=== PATIENT | female | born 1955 | race Caucasian/White ===

== ENCOUNTER → 2020-07-05 13:01 | Outpatient (BNVA) | payer MEDICARE, MEDICAID, SELFPAY | PROVIDERS: PCP Physician Assistant; Referring Provider Physician Assistant; Visit Provider Family Medicine Adult Medicine | DX: M96.1 Postlaminectomy syndrome, not elsewhere classified (principal); M47.812 Spondylosis without myelopathy or radiculopathy, cervical region; Z79.891 Long term (current) use of opiate analgesic | CPT/HCPCS: 99214 ==

== ENCOUNTER → 2020-08-23 12:51 | Outpatient (BNVA) | payer MEDICARE, MEDICAID, SELFPAY | PROVIDERS: PCP Physician Assistant; Referring Provider Physician Assistant; Visit Provider Family Medicine Adult Medicine | DX: M96.1 Postlaminectomy syndrome, not elsewhere classified (principal); M47.812 Spondylosis without myelopathy or radiculopathy, cervical region | CPT/HCPCS: 99212 ==

== ENCOUNTER 2020-09-28 10:21 | Day surgery (SDC) | payer MEDICARE, MEDICAID, SELFPAY ==
[2020-09-27 10:35] VITALS: BMI 22.0
--- NOTE | 2020-09-27 13:25 | P.CONAN_ITS ---
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 Case reviewed with Dr Helene EASON Past Medical History Medical History AAA (abdominal aortic aneurysm) CAD (coronary artery disease) Cervical spondylosis CKD (chronic kidney disease) stage 3, GFR 30-59 ml/min Failed back syndrome, lumbar Hiatal hernia History of placement of internal cardiac defibrillator Hx of myocardial infarction Hypertension On beta rosalva at home Peripheral vascular disease Family History Family History Father Hypertension Mother No problems noted. Sister Gynecologic cancer Surgical History Surgical History Cardiac defibrillator in place History of esophagogastroduodenoscopy (EGD) History of heart bypass surgery History of lumbar fusion History of open reduction and internal fixation (ORIF) procedure History of surgery S/P CABG (coronary artery bypass graft) Social History Social History Alcohol intake: never Smoking Status: Former smoker Second Hand Smoke Exposure: No Use of substances other than those prescribed or required for medical reasons: No Advance Directives: No Advance Directives Information Provided: No Advance Directives on File: No Meds Allergies Allergy/AdvReac Type Severity Reaction Status Date / Time No Known Allergies Allergy Verified 08/30/20 11:02 [No Known Allergies*] Home Medications Medication Instructions Recorded Confirmed Type atorvastatin 80 mg tablet 80 mg PO DAILY 07/05/20 09/24/20 History clopidogrel 75 mg tablet 75 mg PO DAILY 07/05/20 09/24/20 History flu vacc 2019-(64yr ml IM 07/05/20 08/23/20 History up)-MF59C(PF) 60 mcg(15 mcgx4)/0.5 mL IM syringe fluticasone propionate 50 1 spray INTRANASAL DAILY 07/05/20 09/24/20 History mcg/actuation nasal spray,suspension gabapentin 800 mg tablet 800 mg PO TID 07/05/20 09/24/20 History ketotifen fumarate 0.025 % (0.035 1 p OPHTHALMIC (EYE) BID 07/05/20 09/24/20 History %) eye drops naloxone 4 mg/actuation nasal spray 0 spray INTRANASAL DIRECTED 07/05/20 09/24/20 History pneumoc 13-libby conj-dip cr(PF) 0.5 ml IM 07/05/20 08/23/20 History mL IM syringe sacubitril 24 mg-valsartan 26 mg 1 tab PO BID 07/05/20 09/24/20 History tablet triamcinolone acetonide 0.5 % applic TOPICAL BID 07/05/20 08/23/20 History topical cream buprenorphine 1 patch TOPICAL QWEEK 09/24/20 09/24/20 History buprenorphine HCl [Belbuca] 1 strip BUCCAL Q12H 09/24/20 09/24/20 History sacubitril-valsartan [Entresto] 1 tab PO BID 09/24/20 09/24/20 History tramadol 1 tab PO Q12H 09/24/20 09/24/20 History Exam Exam Date and Time: September 27, 2020 1325 Height,Weight and Vital Signs: Height 4 ft 11 in Weight 49.442 kg Pertinent Lab Results Pertinent Lab Results: Laboratory Tests 06/18/20 06/18/20 09:12 09:12 WBC 6.8 Hgb 10.5 L Hct 32.0 L Plt Count 159 L Sodium 136 Potassium 5.3 H Chloride 106 BUN 22 H D Creatinine 1.24 Narrative Narrative: ICD Interr 01/2020: [facility] [employer] Implanted 01/2018 VVI 40; PARACHUTE TAPER<1% No new alerts or episodes noted Normal device function Est battery life 7.2years ECHO 01/2020: LV mild dilated; Akinesis of mid-apical anteroseptum; mid to apical anterior, entire apex. [id number]%; Sev reduced left vent sys function Nml RV size, reduced RV global systolic function Mild dil LA Mild to mod MR Mild TR PA sys pressure mildly elevated No significant change from 11/2019 Assessment and Plan Assessment Anesthesia Assessment: Chart Reviewed Documented by User: Monica Patterson 09/28/20 10:52 [facility] Past Medical History Medical History AAA (abdominal aortic aneurysm) CAD (coronary artery disease) Cervical spondylosis CKD (chronic kidney disease) stage 3, GFR 30-59 ml/min Failed back syndrome, lumbar Hiatal hernia History of placement of internal cardiac defibrillator Hx of myocardial infarction Hypertension On beta rosalva at home Peripheral vascular disease Family History Family History Father Hypertension Mother No problems noted. Sister Gynecologic cancer Surgical History Surgical History Cardiac defibrillator in place History of esophagogastroduodenoscopy (EGD) History of heart bypass surgery History of lumbar fusion History of open reduction and internal fixation (ORIF) procedure History of surgery S/P CABG (coronary artery bypass graft) Social History Social History Alcohol intake: never Smoking Status: Former smoker Second Hand Smoke Exposure: No Use of substances other than those prescribed or required for medical reasons: No Advance Directives: No Advance Directives Information Provided: No Advance Directives on File: No Meds Allergies Allergy/AdvReac Type Severity Reaction Status Date / Time No Known Allergies Allergy Verified 08/30/20 11:02 [No Known Allergies*] Home Medications Medication Instructions Recorded Confirmed Type atorvastatin 80 mg tablet 80 mg PO DAILY 07/05/20 09/24/20 History clopidogrel 75 mg tablet 75 mg PO DAILY 07/05/20 09/24/20 History flu vacc 2020-21(64yr ml IM 07/05/20 08/23/20 History up)-MF59C(PF) 60 mcg(15 mcgx4)/0.5 mL IM syringe fluticasone propionate 50 1 spray INTRANASAL DAILY 07/05/20 09/24/20 History mcg/actuation nasal spray,suspension gabapentin 800 mg tablet 800 mg PO TID 07/05/20 09/24/20 History ketotifen fumarate 0.025 % (0.035 1 drp OPHTHALMIC (EYE) BID 07/05/20 09/24/20 History %) eye drops naloxone 4 mg/actuation nasal spray 0 spray INTRANASAL DIRECTED 07/05/20 09/24/20 History pneumoc 13-libby conj-dip cr(PF) 0.5 ml IM 07/05/20 08/23/20 History mL IM syringe sacubitril 24 mg-valsartan 26 mg 1 tab PO BID 07/05/20 09/24/20 History tablet triamcinolone acetonide 0.5 % applic TOPICAL BID 07/05/20 08/23/20 History topical cream buprenorphine 1 patch TOPICAL QWEEK 09/24/20 09/24/20 History buprenorphine HCl [Belbuca] 1 strip BUCCAL Q12H 09/24/20 09/24/20 History sacubitril-valsartan [Entresto] 1 tab PO BID 09/24/20 09/24/20 History tramadol 1 tab PO Q12H 09/24/20 09/24/20 History
[2020-09-28 10:50] VITALS: BP 123/33; PULSE 50; RESP 18; TEMP 36.6; O2SAT 100
[2020-09-28] MEDS: Lactated Ringers 1,000 ML 20 ML IVCONT (11:05)
== END 2020-09-28 23:59 ==
LOC: HO.SSS 10:22
PROVIDERS: PCP Physician Assistant; Visit Provider Anesthesiology
DX: M47.812 Spondylosis without myelopathy or radiculopathy, cervical region (principal); Z53.9 Procedure and treatment not carried out, unspecified reason; I10 Essential (primary) hypertension; Z87.891 Personal history of nicotine dependence
CPT/HCPCS: J3300; Q9967

== ENCOUNTER → 2020-10-25 13:37 | Outpatient (BNVA) | payer MEDICARE, MEDICAID, SELFPAY | PROVIDERS: PCP Physician Assistant; Referring Provider Physician Assistant; Visit Provider Family Medicine Adult Medicine | DX: M96.1 Postlaminectomy syndrome, not elsewhere classified (principal); M47.812 Spondylosis without myelopathy or radiculopathy, cervical region; Z79.891 Long term (current) use of opiate analgesic | CPT/HCPCS: 99212 ==

== ENCOUNTER → 2020-11-29 14:09 | Outpatient (BNVA) | payer MEDICARE, MEDICAID, SELFPAY | PROVIDERS: PCP Physician Assistant; Visit Provider Family Medicine Adult Medicine | DX: M47.812 Spondylosis without myelopathy or radiculopathy, cervical region (principal); M96.1 Postlaminectomy syndrome, not elsewhere classified; Z79.899 Other long term (current) drug therapy | CPT/HCPCS: 99212 ==

== ENCOUNTER → 2021-01-10 13:57 | Outpatient (BNVA) | payer MEDICARE, MEDICAID, SELFPAY | PROVIDERS: PCP Physician Assistant; Visit Provider Family Medicine Adult Medicine | DX: M47.812 Spondylosis without myelopathy or radiculopathy, cervical region (principal); M96.1 Postlaminectomy syndrome, not elsewhere classified | CPT/HCPCS: 99212 ==

== ENCOUNTER 2021-02-07 15:29 | Outpatient (REF) | payer MEDICARE, MEDICAID, SELFPAY ==
--- NOTE | ~2021-02-07 | US_ITS ---
EXAMINATION: US ABDOMINAL AORTIC ANEURYSM CLINICAL INFORMATION: Abdominal aortic aneurysm. COMPARISON: Abdominal ultrasound 06/18/2020. TECHNIQUE: Routine abdominal ultrasound was performed. FINDINGS: There is atherosclerotic changes of the entire abdominal aorta. Peak systolic velocity abdominal aorta measures 102 cm/s. Proximal abdominal aorta measures 2.6 x 2.6 cm. Previously measured 2.5 x 2.4 cm. Mid abdominal aorta measures 2.4 x 2.8 cm. Previously it measured 2.1 x 1.7 cm. Distal abdominal aorta measures 3.7 x 2.3 cm. There is thrombus visualized along the left aspect of previously patent aneurysm. Previously it measured 3.9 x 2.3 cm. At the bifurcation. Right common iliac artery measures 0.8 x 0.6 cm. Previously it measured 0.80 x 1.0 cm. Left common iliac artery measures 1.0 x 1.0 cm. Previously it measured 0.80 x 1.0 cm. Incidental finding of a right iliac stent is noted. US/US abdominal aortic aneurysm IMPRESSION: Saccular infrarenal distal abdominal aortic aneurysm measuring same size as previously noted on 06/18/2020 exam. There is now thrombus in the left aspect of the aneurysm.
== END 2021-02-07 15:30 | disposition home or self-care (01) ==
LOC: HO.US 15:29
PROVIDERS: Visit Provider Physician Assistant
DX: I71.4 Abdominal aortic aneurysm, without rupture (principal)
CPT/HCPCS: 76706

== ENCOUNTER → 2021-02-19 15:19 | Outpatient (BNVA) | payer MEDICARE, MEDICAID, SELFPAY | PROVIDERS: PCP Physician Assistant; Visit Provider Family Medicine Adult Medicine | DX: M47.812 Spondylosis without myelopathy or radiculopathy, cervical region (principal); M96.1 Postlaminectomy syndrome, not elsewhere classified; Z79.899 Other long term (current) drug therapy | CPT/HCPCS: 99212 ==

== ENCOUNTER → 2021-02-28 13:51 | Outpatient (BNVA) | payer MEDICARE, MEDICAID, SELFPAY | PROVIDERS: PCP Physician Assistant; Visit Provider Surgery Vascular Surgery | DX: I73.9 Peripheral vascular disease, unspecified (principal); I65.23 Occlusion and stenosis of bilateral carotid arteries; I71.4 Abdominal aortic aneurysm, without rupture | CPT/HCPCS: 99202 ==

== ENCOUNTER 2021-03-05 13:53 | Outpatient (REF) | payer MEDICARE, MEDICAID, SELFPAY ==
--- NOTE | ~2021-03-05 | MM_ITS ---
EXAMINATION: BONE DENSITOMETRY CLINICAL INDICATION: Encounter for screening for osteoporosis. Prior lower lumbar fusion. COMPARISON: Baseline BD dated 12/03/2018. TECHNIQUE: Using a Semadic DXA System (software version: 13.1) manufactured by [employer], dual-energy x-ray absorptiometry was performed of the lumbar spine and left hip. The images are of good technical quality. Summary results are attached. FINDINGS: AP SPINE L1-L3 (excluding L4): The data of L1-L4 has been changed to exclude the L4 vertebral body, because hardware at this level would cause overestimation of lumbar spine density. Current: BMD 0.975 g/cm2, Z-score 0.5, T-score -1.6, osteopenia, 3.0% increase from baseline (<5% change is not significant). Baseline: BMD 0.947 g/cm2. LEFT FEMUR, NECK: Current: BMD 0.711 g/cm2, Z-score -0.5, T-score -2.4, osteopenia. Baseline: BMD 0.652 g/cm2. LEFT FEMUR, TOTAL: Current: BMD 0.669 g/cm2, Z-score -1.0, T-score -2.7, osteoporosis, 7.4% increase from baseline (<5% change is not significant). Baseline: BMD 0.623 g/cm2. IDENTIFIED RISK FACTORS: Osteoporosis, renal, history of fracture (adult). Early menopause, secondary osteoporosis, anticonvulsant. HISTORY OF FRACTURE: Humerus. MEDICATIONS: None listed. MM/XR DEXA axial skeleton IMPRESSION: 1. DIAGNOSIS: Osteoporosis based on the lowest T-score value of -2.7 in the total femur applying World Health Organization criteria. 2. 10-YEAR FRACTURE RISK PREDICTION, FRAX: Major osteoporotic fracture (clinical spine, forearm, hip or shoulder) 19.2%. Hip fracture 4.1%. 3. Treatment Recommendations: NOF guidelines recommend consideration for treatment in postmenopausal women and men age 50 and older presenting with the following: -A hip or vertebral (clinical or morphometric) fracture. -T-score less than or equal to -2.5 at the femoral neck or spine after appropriate evaluation to exclude secondary causes. -Low bone mass at the hip or spine and a 10-year fracture probability by FRAX of greater than or equal to 3% for hip fracture or greater than or equal to 20% for major osteoporotic fracture based on the [place] adapted WHO algorithm. 4. Other Recommendations: All treatment decisions require clinical judgment and consideration of individual patient factors, including patient preferences, comorbidities, previous drug use, risk factors not captured in the FRAX model (e.g. frailty, falls, vitamin D deficiency, increased bone turnover, interval significant decline in bone density) and possible under or overestimation of fracture risk by FRAX. Additional medical evaluation for secondary cause of low bone mineral density may be appropriate. FUTURE SCAN RECOMMENDATION: People with diagnosed cases of osteoporosis or at high risk for fracture should have regular bone mineral density tests. For patients eligible for Medicare, routine testing is allowed once every 2 years. The testing frequency can be increased to one year for patients who have rapidly progressing disease, those who are receiving or discontinuing medical therapy to restore bone mass, or have additional risk factors.
--- NOTE | ~2021-03-05 | MM_ITS ---
EXAMINATION: MM SCREENING DIGITAL BREAST TOMOSYNTHESIS, BILATERAL CLINICAL INFORMATION: Screening. Asymptomatic. The lifetime risk of breast cancer based on the Tyrer-Cuzick Model is 3%. COMPARISON: Mammography: 06/28/2019, 05/07/2018, 01/30/2017 TECHNIQUE: Digital breast tomosynthesis is performed in both the craniocaudal and mediolateral oblique views along with computer-aided detection (CAD). Synthesized 2D images are generated from the tomosynthesis. FINDINGS: There are scattered areas of fibroglandular density (ACR BI-RADS breast composition Category b). There are no significant masses, abnormal calcifications, or other abnormalities. There is pacemaker generator overlying and obscuring much of the left axilla on the MLO view. Axillary nodes and skin contours are stable. No significant changes. MM/MM tomosynthesis screening BI IMPRESSION: No mammographic evidence of malignancy. ASSESSMENT: BI-RADS 2: Benign RECOMMENDATION: Routine annual mammography screening. This patient's information was entered into a reminder system with a target due date for their next mammogram.
== END 2021-03-05 13:54 | disposition home or self-care (01) ==
LOC: HO.MAMMO 13:53
PROVIDERS: Visit Provider Physician Assistant
DX: Z12.31 Encounter for screening mammogram for malignant neoplasm of breast (principal); Z13.820 Encounter for screening for osteoporosis; M85.80 Other specified disorders of bone density and structure, unspecified site; M81.0 Age-related osteoporosis without current pathological fracture; Z78.0 Asymptomatic menopausal state; Z87.81 Personal history of (healed) traumatic fracture
CPT/HCPCS: 77063; 77067; 77080

== ENCOUNTER → 2021-03-19 14:55 | Outpatient (BNVA) | payer MEDICARE, MEDICAID, SELFPAY | PROVIDERS: Visit Provider Family Medicine Adult Medicine | DX: M47.812 Spondylosis without myelopathy or radiculopathy, cervical region (principal); M96.1 Postlaminectomy syndrome, not elsewhere classified | CPT/HCPCS: 99212 ==

== ENCOUNTER 2021-04-02 12:48 | Outpatient (REF) | payer MEDICARE, MEDICAID, SELFPAY ==
--- NOTE | ~2021-04-02 | US_ITS ---
EXAMINATION: COLOR-FLOW DUPLEX IMAGING OF THE BILATERAL LOWER EXTREMITY ARTERIAL SYSTEM. VELOCITY MEASUREMENTS THROUGHOUT THE FEMORAL ARTERIES WITH ANKLE-BRACHIAL PERIPHERAL ARTERIAL TESTING. Interventional Radiologist: Erlin Su M.D., F.S.I.R., F.A.C.R. CLINICAL INFORMATION: This is a 65-year-old female with hypertension, hyperlipidemia, peripheral vascular disease. Comparison: Comparison is made to limited portions of the study dated 08/25/2011 which demonstrated right iliac artery occlusion and severe bilateral superficial femoral artery disease. RIGHT FEMORAL RUNOFF VELOCITIES: The right common femoral artery measures 158 cm/s and monophasic. The right profunda femoral artery is 403 cm/s and is biphasic. This is suspicious for high-grade stenosis. Right proximal superficial femoral artery measures 43 cm/s and monophasic. Mid superficial femoral artery is occluded. Distal right superficial femoral artery measures 27 cm/s and is biphasic. Right popliteal velocity measures 47 cm/s and is monophasic. The posterior tibial artery velocity measures 35 cm/s and was monophasic. The right ankle-brachial index is 0.43. The waveforms are dampened. There is diffuse calcified atherosclerotic disease. LEFT FEMORAL RUNOFF VELOCITIES: The left common femoral artery measures 233 cm/s and monophasic. This is suspicious for hemodynamically significant stenosis. The left profunda femoral artery is 161 cm/s and is monophasic. Left proximal superficial femoral artery measures 161 cm/s and monophasic. Mid superficial femoral artery is 67 cm/s and monophasic. Distal left superficial femoral artery measures 42 cm/s and is monophasic. Left popliteal velocity measures 38 cm/s and is monophasic. The posterior tibial artery velocity measures 31 cm/s and was monophasic. The left ankle-brachial index is 0.48. The waveforms are dampened. There is diffuse calcified atherosclerotic disease. US/US arterial duplex LE BI IMPRESSION: 1. RIGHT LEG: There is a hemodynamically significant stenosis of the right profunda femoral artery. There is occlusion of the mid right superficial femoral artery. Diffuse atherosclerotic plaque is present. There is moderate hemodynamically significant obstruction based on the ankle-brachial index. 2. LEFT LEG: There is a hemodynamically significant stenosis in the left common femoral artery. There is diffuse atherosclerotic disease throughout the left outflow. There is moderate hemodynamically significant obstruction based on the ankle-brachial index.
--- NOTE | ~2021-04-02 | US_ITS ---
EXAMINATION: US EXTRACRANIAL CAROTID DUPLEX, BILATERAL CLINICAL INFORMATION: This is a 65-year-old female with history of tobacco use, hypertension, hyperlipidemia, myocardial infarction, carotid artery disease. COMPARISON: None TECHNIQUE: Real-time ultrasound and Doppler techniques (integrating B-mode 2-D vascular images, Doppler spectral analysis and color-flow Doppler imaging) were utilized to interrogate the extracranial carotid arteries, the vertebral arteries and proximal subclavian arteries bilaterally. The degree of stenosis is determined by criteria similar to NASCET. FINDINGS: Right Side: 1. There is moderate atherosclerotic plaque seen in the bifurcation/proximal ICA region. 2. The common carotid artery PSV proximally is 90 cm/s and distally 108 cm/s. 3. The proximal internal carotid artery velocities are 162 cm/s systolic and 44 cm/s diastolic. 4. The proximal external carotid artery PSV is 94 cm/s. 5. The vertebral artery shows antegrade flow. 6. The subclavian artery waveforms are normal. Left Side: 1. There is moderate atherosclerotic plaque seen in the bifurcation/proximal ICA region. 2. The common carotid artery PSV proximally is 85 cm/s and distally 99 cm/s. 3. The proximal internal carotid artery velocities are 250 cm/s systolic and 40 cm/s diastolic. 4. The proximal external carotid artery PSV is 145 cm/s. 5. The vertebral artery shows antegrade flow. 6. The subclavian artery waveforms are normal. US/US carotid duplex BI IMPRESSION: 1. RIGHT: Moderate, hemodynamically significant stenosis of the proximal right internal carotid artery corresponding to a 50-79% stenosis by velocity criteria. 2. LEFT: Moderate, hemodynamically significant stenosis of the proximal left internal carotid artery corresponding to a 50-79% stenosis by velocity criteria.
== END 2021-04-02 12:49 | disposition home or self-care (01) ==
LOC: HO.US 12:48
PROVIDERS: Visit Provider Surgery Vascular Surgery
DX: I65.23 Occlusion and stenosis of bilateral carotid arteries (principal); I70.203 Unspecified atherosclerosis of native arteries of extremities, bilateral legs; I77.1 Stricture of artery
CPT/HCPCS: 93880; 93925

== ENCOUNTER → 2021-04-04 12:54 | Outpatient (BNVA) | payer MEDICARE, MEDICAID, SELFPAY | PROVIDERS: Visit Provider Surgery Vascular Surgery | DX: I73.9 Peripheral vascular disease, unspecified (principal); I65.23 Occlusion and stenosis of bilateral carotid arteries; I71.4 Abdominal aortic aneurysm, without rupture | CPT/HCPCS: 99212 ==

== ENCOUNTER → 2021-04-10 06:00 | Day surgery (SDC) | payer MEDICARE, MEDICAID, SELFPAY ==
[2021-04-10] VITALS (11 sets, daily range): BP systolic 110–134; BP diastolic 39–51; PULSE 43–52; RESP 16–18; TEMP 36.4–36.8; O2SAT 97–100; BMI 20.7
[2021-04-10] MEDS: 0.9 % Sodium Chloride 1,000 ML 100 ML IVCONT (06:20)
[2021-04-10 06:32] LABS: MANUAL DIFF FLAG NO
[2021-04-10 06:41] LABS: Basophils Absolute Auto 0.1 X10*3/uL (0.0-0.2); Basophils Percent Auto 0.9 % (0-2); Eosinophils Absolute Auto 0.4 X10*3/uL (0.0-0.4); Eosinophils Percent Auto 6.3 % (0-4); Hematocrit 35.3 % (37-47); Hemoglobin 11.2 g/dl (12.0-16.0); Imm Gran Abs Auto 0.03 X10*3/uL (0.00-0.03); Imm Gran Pct Auto 0.4 % (0.0-0.4); Lymphocytes Absolute Auto 2.4 X10*3/uL (1.2-4.9); Lymphocytes Percent Auto 35.5 % (20-40); Mean Corpuscular HGB Conc 31.7 g/dl (31.0-35.0); Mean Corpuscular Hemoglobin 31.5 pg (27.0-33.0); Mean Corpuscular Volume 99.4 fL (80-98); Mean Platelet Volume 10.2 fL (9.4-12.3); Monocytes Absolute Auto 0.5 X10*3/uL (0.1-1.2); Monocytes Percent Auto 7.1 % (2-11); Neutrophils Absolute Auto 3.4 X10*3/uL (2.0-8.3); Neutrophils Percent Auto 49.8 % (45-73); Platelet Count 162 X10*3/uL (160-400); Red Blood Count 3.55 X10*6/uL (4.20-5.50); Red Cell Distribution Width 13.2 % (11.0-16.0); White Blood Count 6.9 X10*3/uL (4.8-10.8)
[2021-04-10 06:44] LABS: INTERNATIONAL NORM RATIO 1.1 (0.9-1.1); Prothrombin Time 12.4 SEC (9.9-13.0)
[2021-04-10 06:46] LABS: Partial Thromboplastin Time 33.3 SEC (24.1-38.0)
[2021-04-10 07:08] LABS: Anion Gap 12 (12-20); Blood Urea Nitrogen 10 mg/dL (9-16); Calcium 9.4 mg/dL (8.4-10.2); Carbon Dioxide 25 mmol/L (22-29); Chloride 105 mmol/L (96-108); Creatinine Clr Calc Pharmacy 38.5; Estimated Glomerular Filt Rate 57; Glucose Random 90 mg/dL (60-115); Potassium 3.9 mmol/L (3.3-5.1); Sodium 138 mmol/L (135-145)
--- NOTE | 2021-04-10 12:10 | W.PM.OPN ---
Operative Note Operative Note Date of Service: 04/10/21 Narrative: Angiogram report from [facility] Preoperative diagnosis: Atherosclerosis of bilateral lower extremity with activity limiting claudication Postoperative diagnosis: Same Procedure: 1. Ultrasound-guided left and right common femoral access 2. Aortogram with left lower extremity runoff lower extremity runoff 3. StarClose closure device placement Surgeon:Levi Mann M.D. Slime Plant Operator Helper:None Anesthesia: Local with moderate conscious sedation for a total of 45 minutes, performed by vt Specimens:none Drains:none Estimated blood loss: Less than 10 ml Indications: 65-year-old female with severe activity limiting claudication. She is only able to walk about 100 ft. Noninvasive testing demonstrated severe bilateral disease. She now presents for endovascular intervention The patient has signed the informed consent after reviewing risks, complications, benefits, and alternatives previously discussed with the patient in my office. The patient was given the opportunity to ask any additional questions or voice any concerns. All questions were answered to the patient's satisfaction. Procedure in detail: Patient was brought to the angiography suite prior to which a time-out was called for patient identification and site verification. Bilateral groins were prepped and draped in the standard surgical fashion. Under ultrasound guidance left common femoral was punctured with micro puncture needle and wire. Due to the near total occlusion of the left side we were unable to advance sheath. We abandon the left side and we turned our attention to the right side. Under similar fashion right side with common femoral was accessed using ultrasound guidance. We were then able to advance the micro wire. Subsequently a precision 4 Danish sheath was then placed. Bentson wire was advanced to the level of the aorta. 4 Danish Flush catheter was brought up and parked at the level of the renal arteries. Aortogram was then undertaken. Catheter was brought down to the level of the iliac bifurcation. Iliacs were subsequently imaged. Catheter was then brought in up and over to the left side profunda femora.. Runoff study was then undertaken. We were unable to intervene. Multiple orthogonal views were undertaken. Catheter wire sheath was removed. 10 minutes direct pressure was held. Patient tolerated the procedure well. Interpretation of films: 1. Ultrasound demonstrates appropriate femoral puncture. Image of which was saved. 2. Aortogram demonstrates appropriate caliber aorta. Minimal disease. Appropriate take-off of the renals. 3. Iliac images demonstrate significant tortuosity with multiple high-grade stenosis especially a calcified ring at the takeoff of the iliacs. 4. Right side iliacs demonstrated 2 prior old stents. There was some stenotic disease between the stents. Right common femoral had significant disease. SFA was occluded 5. Left side had disease through the common iliac going down to the external iliac there is a near total occlusion of the external iliac and common femoral. Profunda femorals fills via collaterals. SFA total occlusion. SFA reconsidered to set the above knee popliteal. Good 3 vessel runoff. Conclusion: 1. Severe multivessel disease. Patient will require open approach in order to better treat this. This was discussed with the patient at the conclusion of the case. This note is constructed using voice recognition software. While every effort has been made to ensure accuracy, automobile damage field appraiser errors may have been included. Thank you for allowing me to participate in the care of your patient. Yours sincerely, Levi Mann MD, FACS, R.P.V.I.
[2021-04-10] MEDS: iohexoL 300 MG/ML 100 ML INFUS..BTL IV (12:33)
== END | disposition home or self-care (01) ==
PROVIDERS: PCP Physician Assistant; Visit Provider Surgery Vascular Surgery
DX: I70.213 Atherosclerosis of native arteries of extremities with intermittent claudication, bilateral legs (principal); I65.23 Occlusion and stenosis of bilateral carotid arteries; I71.4 Abdominal aortic aneurysm, without rupture; I25.10 Atherosclerotic heart disease of native coronary artery without angina pectoris; I12.9 Hypertensive chronic kidney disease with stage 1 through stage 4 chronic kidney disease, or unspecified chronic kidney disease; N18.30 Chronic kidney disease, stage 3 unspecified; Z95.1 Presence of aortocoronary bypass graft; Z87.891 Personal history of nicotine dependence; Z95.810 Presence of automatic (implantable) cardiac defibrillator
CPT/HCPCS: 36247; 36415; 75630; 76937; 80048; 85025; 85610; 85730; 99152; 99153; C1769; C1887; J2250; J3010; Q9967

== ENCOUNTER → 2021-04-16 15:22 | Outpatient (BNVA) | payer MEDICARE, MEDICAID, SELFPAY | PROVIDERS: PCP Physician Assistant; Visit Provider Family Medicine Adult Medicine | DX: M96.1 Postlaminectomy syndrome, not elsewhere classified (principal); M47.812 Spondylosis without myelopathy or radiculopathy, cervical region; Z79.899 Other long term (current) drug therapy | CPT/HCPCS: 99212 ==

== ENCOUNTER → 2021-04-18 14:52 | Outpatient (BNVA) | payer MEDICARE, MEDICAID, SELFPAY | PROVIDERS: PCP Physician Assistant; Visit Provider Surgery Vascular Surgery | DX: I73.9 Peripheral vascular disease, unspecified (principal) | CPT/HCPCS: 99212 ==

== ENCOUNTER → 2021-05-14 15:26 | Outpatient (BNVA) | payer MEDICARE, MEDICAID, SELFPAY | PROVIDERS: PCP Physician Assistant; Visit Provider Family Medicine Adult Medicine | DX: M47.812 Spondylosis without myelopathy or radiculopathy, cervical region (principal); M96.1 Postlaminectomy syndrome, not elsewhere classified | CPT/HCPCS: 99212 ==

== ENCOUNTER → 2021-06-06 09:58 | Outpatient (BNVA) | payer MEDICARE, MEDICAID, SELFPAY | PROVIDERS: PCP Physician Assistant; Visit Provider Surgery Vascular Surgery | DX: Z01.810 Encounter for preprocedural cardiovascular examination (principal); I73.9 Peripheral vascular disease, unspecified; I71.4 Abdominal aortic aneurysm, without rupture; I25.10 Atherosclerotic heart disease of native coronary artery without angina pectoris; I12.9 Hypertensive chronic kidney disease with stage 1 through stage 4 chronic kidney disease, or unspecified chronic kidney disease; N18.30 Chronic kidney disease, stage 3 unspecified; M96.1 Postlaminectomy syndrome, not elsewhere classified; Z95.1 Presence of aortocoronary bypass graft; Z98.61 Coronary angioplasty status; Z95.810 Presence of automatic (implantable) cardiac defibrillator | CPT/HCPCS: Q3014 ==

== ENCOUNTER → 2021-06-11 15:58 | Outpatient (BNVA) | payer MEDICARE, MEDICAID, SELFPAY | PROVIDERS: PCP Physician Assistant; Visit Provider Family Medicine Adult Medicine | DX: Z51.81 Encounter for therapeutic drug level monitoring (principal); M47.812 Spondylosis without myelopathy or radiculopathy, cervical region; M96.1 Postlaminectomy syndrome, not elsewhere classified | CPT/HCPCS: 99212 ==

== ENCOUNTER 2021-06-17 06:15 | Inpatient (IN) | payer MEDICARE, MEDICAID, SELFPAY ==
[2021-06-12 10:21] VITALS: BMI 21.2
--- NOTE | 2021-06-13 12:49 | HO.ANESPROP2 ---
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 Not booked for PAT. Case reviewed with Dr Helene EASON Active Problems Active Problems: All Active Problems (Updated 06/12/21 @ 10:20 by Niki Dominique RN) Irritable bowel syndrome with diarrhea (Acute) Depression (Acute) AAA (abdominal aortic aneurysm) (Acute) Breast cancer screening (Acute) Osteoporosis (Acute) Abdominal aortic aneurysm (Acute) PAD (peripheral artery disease) (Acute) Carotid stenosis, bilateral (Acute) Osteoporosis (Acute) CAD (coronary artery disease) (Acute) Peripheral vascular disease (Acute) CKD (chronic kidney disease) stage 3, GFR 30-59 ml/min (Acute) History of heart bypass surgery (Acute) Cervical spondylosis (Acute) Failed back syndrome, lumbar (Acute) Past Medical History Medical History (Updated 06/12/21 @ 10:20 by Niki Dominique RN) AAA (abdominal aortic aneurysm) CAD (coronary artery disease) Cervical spondylosis CKD (chronic kidney disease) stage 3, GFR 30-59 ml/min COVID-19 vaccine series completed Failed back syndrome, lumbar Hiatal hernia History of femoral angiogram History of placement of internal cardiac defibrillator Hx of myocardial infarction Hypertension On beta rosalva at home Peripheral vascular disease Family History Family History Father Hypertension Mother No problems noted. Sister Gynecologic cancer Surgical History Surgical History Cardiac defibrillator in place History of esophagogastroduodenoscopy (EGD) History of heart bypass surgery History of lumbar fusion History of open reduction and internal fixation (ORIF) procedure History of surgery S/P CABG (coronary artery bypass graft) Social History Social History Household Members Other:: living with son Are you a primary day care assistant to a significant other at home: No Do you presently have visiting nurse or other home services: No Alcohol intake: never Patient Tobacco Use Status: Former Tobacco user Quit Date: 2018 Tobacco use type: Cigarette Years Smoked: 40 Second Hand Smoke Exposure: No Use of substances other than those prescribed or required for medical reasons: Yes Substance Use Type Other:: advised to hold pre-op Substance Use Frequency: Daily Have you been hit, kicked, punched, or otherwise hurt by someone within the past year? If so, by whom?: No Are you DNR?: No Advance Directives Information Provided: Yes (as above noted) Advance Directives on File: No Recently lost weight without trying: No Eating poorly because of decreased appetite: No Nutrition Risks: No Nutritional Risk Poor oral hygiene: No (upper & lower full denture) Meds Allergies Allergy/AdvReac Type Severity Reaction Status Date / Time No Known Allergies Allergy Verified 06/11/21 16:40 [No Known Allergies*] Home Medications Medication Instructions Recorded Confirmed Last Taken Type naloxone 4 mg/actuation nasal spray 1 spray INTRANASAL DIRECTED 07/05/20 06/12/21 Unknown History buprenorphine HCl 750 mcg buccal 750 mcg BUCCAL BID 06/12/21 06/12/21 Unknown History film ([place]) oxycodone 5 mg tablet 5 mg PO DAILY 06/12/21 06/12/21 06/17/21 History Exam Exam Date and Time: June 13, 2021 1249 Height,Weight and Vital Signs: Height 4 ft 11 in Weight 47.627 kg Pertinent Lab Results Pertinent Lab Results: DOS Narrative Narrative: EKG 04/2021 NSR, LVH with repol abnormality (no change since 2017) ICD Interr 03/2021 VVI 40: DROP HAMMER SETTER UP<1% No new alerts or episodes noted Normal device function Estimated battery life : 6.7years ICM WNL Nuc Stress 04/2021 Large in size, mostly fixed perfusion defect of the mid anterior, anteroseptal and apex consistent with LAD territory infarct with mild mirta-infarct ischemia TID was normal Gated SPECT imaging was performed and revealed an LVEF 54% at rest and 38% with stress ECHO 01/2020 LV mild dilated; Akinesis of mid-apical anteroseptum; mid to apical anterior, entire apex. [id number]%; Sev reduced left vent sys function Nml RV size, reduced RV global systolic function Mild dil LA Mild to mod MR Mild TR PA sys pressure mildly elevated No significant change from 11/2019 US carotid duplex BI 03/2021 IMPRESSION: 1. RIGHT: Moderate, hemodynamically significant stenosis of the proximal right internal carotid artery corresponding to a 50-79% stenosis by velocity criteria. ? 2. LEFT: Moderate, hemodynamically significant stenosis of the proximal left internal carotid artery corresponding to a 50-79% stenosis by velocity criteria. US arterial duplex LE 03/2021 IMPRESSION: ? 1.? RIGHT LEG: There is a hemodynamically significant stenosis of the right profunda femoral artery. There is occlusion of the mid right superficial femoral artery. Diffuse atherosclerotic plaque is present. There is moderate hemodynamically significant obstruction based on the ankle-brachial index. ? ? 2. LEFT LEG: There is a hemodynamically significant stenosis in the left common femoral artery. There is diffuse atherosclerotic disease throughout the left outflow. There is moderate hemodynamically significant obstruction based on the ankle-brachial index. Assessment and Plan Assessment Anesthesia Assessment: Chart Reviewed Documented by User: Monica Patterson MD 06/17/21 08:02 [facility] Past Medical History Medical History (Updated 06/12/21 @ 10:20 by Niki Dominique RN) AAA (abdominal aortic aneurysm) CAD (coronary artery disease) Cervical spondylosis CKD (chronic kidney disease) stage 3, GFR 30-59 ml/min COVID-19 vaccine series completed Failed back syndrome, lumbar Hiatal hernia History of femoral angiogram History of placement of internal cardiac defibrillator Hx of myocardial infarction Hypertension On beta rosalva at home Peripheral vascular disease Family History Family History Father Hypertension Mother No problems noted. Sister Gynecologic cancer Surgical History Surgical History Cardiac defibrillator in place History of esophagogastroduodenoscopy (EGD) History of heart bypass surgery History of lumbar fusion History of open reduction and internal fixation (ORIF) procedure History of surgery S/P CABG (coronary artery bypass graft) History of Problems with Anesthesia: No Social History Social History Household Members Other:: living with son Are you a primary day care assistant to a significant other at home: No Do you presently have visiting nurse or other home services: No Alcohol intake: never Patient Tobacco Use Status: Former Tobacco user Quit Date: 2018 Tobacco use type: Cigarette Years Smoked: 40 Second Hand Smoke Exposure: No Use of substances other than those prescribed or required for medical reasons: Yes Substance Use Type Other:: advised to hold pre-op Substance Use Frequency: Daily Have you been hit, kicked, punched, or otherwise hurt by someone within the past year? If so, by whom?: No Are you DNR?: No Advance Directives Information Provided: Yes (as above noted) Advance Directives on File: No Recently lost weight without trying: No Eating poorly because of decreased appetite: No Nutrition Risks: No Nutritional Risk Poor oral hygiene: No (upper & lower full denture) Meds Allergies Allergy/AdvReac Type Severity Reaction Status Date / Time No Known Allergies Allergy Verified 06/11/21 16:40 [No Known Allergies*] Home Medications Medication Instructions Recorded Confirmed Last Taken Type naloxone 4 mg/actuation nasal spray 1 spray INTRANASAL DIRECTED 07/05/20 06/12/21 Unknown History buprenorphine HCl 750 mcg buccal 750 mcg BUCCAL BID 06/12/21 06/12/21 Unknown History film ([place]) oxycodone 5 mg tablet 5 mg PO DAILY 06/12/21 06/12/21 06/17/21 History Exam Airway Mallampati Class: I (Edentulous) TM Dist: >3cm Neck ROM: Full Denture: Upper and Lower Loose/Missing/Broken Teeth: Yes, Upper and Lower Heart: RRR Lungs: CTA Assessment and Plan Assessment Anesthesia Assessment: Anesthesia Plan Discussed and Chart Reviewed Final Anesthetic Review History of Problems with Anesthesia: No NPO: Yes ASA Class: III Final Preanesthetic Review: Meds/Allgs Chart Reviewed, Consent Obtained/Reviewed and Anes Risks/Benef Reviewed Patient Risk: Intermediate Procedure Risk: Intermediate Anesthetic Plan Anesthetic Plan: GA Disposition: Standard PACU
[2021-06-17] VITALS (25 sets, daily range): BP systolic 112–145; BP diastolic 37–57; PULSE 48–67; RESP 11–20; TEMP 36.1–36.9; O2SAT 91–100
--- NOTE | ~2021-06-17 | XR_ITS ---
EXAMINATION: XR HIP, LEFT CLINICAL INFORMATION: Left groin pain status post surgery COMPARISON: 11/06/2017 TECHNIQUE: Two views of the left hip. FINDINGS: No fracture or dislocation. The left hip is well aligned. Joint space maintained with subchondral sclerosis. The visualized left hemipelvis is intact. Skin elaina overlie the left inguinal region. Prominent vascular calcifications. XR/XR hip LT 1V IMPRESSION: No acute osseous abnormality with mild degenerative changes of the hip.
--- NOTE | ~2021-06-17 | FL_ITS ---
EXAMINATION: XR FLUOROSCOPY WITH IMAGES CLINICAL INFORMATION: Left iliac stent placement. COMPARISON: None. TECHNIQUE: Fluoroscopy performed by Dr. Mann. Fluoroscopy time: 11.7 minutes DAP: 23.9 mGycm2 Images: 20 FL/FL guidance in OR FINDINGS/IMPRESSION: Multiple intraoperative images were obtained. The final images shows a left iliac catheter. Several right common iliac and external iliac stents are seen in place as well. Please refer to the procedure report for more detailed findings.
--- NOTE | 2021-06-17 06:17 | MHC.SHP ---
Pre-Procedural Eval Section A Date of Service: 06/17/21 The patient is an INPATIENT: No The History & Physical has been completed within 30 days and I have reviewed it.: Yes Section B Chief Complaint: PVD Allergies: Allergies Allergy/AdvReac Type Severity Reaction Status Date / Time No Known Allergies Allergy Verified 06/11/21 16:40 [No Known Allergies*] Plan I have reviewed the history and physical and performed a pertinent physical examination on my patient. No changes have occurred unless specified.
[2021-06-17 06:29] LABS: MANUAL DIFF FLAG NO
[2021-06-17 06:30] LABS: Basophils Percent Auto 0.2 % (0-2); Eosinophils Percent Auto 0.2 % (0-4); Hematocrit 29.1 % (37-47); Hemoglobin 9.6 g/dl (12.0-16.0); Imm Gran Abs Auto 0.03 X10*3/uL (0.00-0.03); Imm Gran Pct Auto 0.3 % (0.0-0.4); Lymphocytes Absolute Auto 2.1 X10*3/uL (1.2-4.9); Lymphocytes Percent Auto 23.4 % (20-40); Mean Corpuscular Hemoglobin 31.3 pg (27.0-33.0); Mean Corpuscular Volume 94.8 fL (80-98); Mean Platelet Volume 10.3 fL (9.4-12.3); Monocytes Absolute Auto 0.7 X10*3/uL (0.1-1.2); Monocytes Percent Auto 7.6 % (2-11); Neutrophils Absolute Auto 6.2 X10*3/uL (2.0-8.3); Neutrophils Percent Auto 68.3 % (45-73); Platelet Count 171 X10*3/uL (160-400); Red Blood Count 3.07 X10*6/uL (4.20-5.50); Red Cell Distribution Width 13.4 % (11.0-16.0)
[2021-06-17 06:52] LABS: Prothrombin Time 11.3 SEC (9.9-13.0)
[2021-06-17 06:53] LABS: COVID-19 Test Negative (Negative)
[2021-06-17 06:55] LABS: Partial Thromboplastin Time 28.5 SEC (24.1-38.0)
[2021-06-17] MEDS: fentaNYL citrate/PF 100 MCG/2 ML VIAL 25 MCG IVPUSH ×2 (11:19→11:29)
--- NOTE | 2021-06-17 11:24 | W.PM.OPN ---
Operative Note Operative Note Date of Service: 06/17/21 Narrative: Operative note by [facility] Preoperative diagnosis: Atherosclerosis with rest pain left lower extremity Postoperative diagnosis: Same Procedure:1 left femoral endarterectomy 2. Remote endarterectomy of left external iliac 3. Endarterectomy of left profundus femoral 4. Diagnostic angiogram Surgeon:Levi Mann M.D. Sheriffs Officer: Pk [place] Anesthesia: General Specimens: 1 Drains: None Estimated blood loss: 150 mL Indications: 65-year-old female with a prior history smoking has severe peripheral vascular disease. She now presents for left femoral endarterectomy with possible iliac stenting. The patient has signed the informed consent after reviewing risks, complications, benefits, and alternatives previously discussed with the patient. The patient was given the opportunity to ask any additional questions or voice any concerns. All questions were answered to the patient's satisfaction. Procedure in detail: Patient was brought to the operating room prior to which a time-out was called for patient identification and site verification. Abdomen and bilateral groins were prepped and draped in the standard surgical fashion. Longitudinal incision was carried out over the left common femoral artery. We dissected down to the femoral sheath. This was dissected up to inguinal fascia. We were then able to identify the SFA and profundus femorals. These were isolated with silastic loops. At this time 4000 units of systemic heparin was administered. After 5 minutes of circulation time the common femoral profundus and SFA were clamped. We made an arteriotomy from the profundus into the common femoral extending up to the external iliac. Endarterectomy was then undertaken with [place] elevator. Loose debris was removed with fine pickups and mosquitos. The vessel was then irrigated out thoroughly. All loose debris was then removed. A xenosure patch was then used. This was trimmed to appropriate size and circumferentially anastomosed with a 6 0 Prolene. We brought it at down around both sides. We left an opening laterally. Once this was accomplished an additional 1000 units of heparin was administered. We then placed a 6 [place] sheath. This was brought into the external iliac. We then advanced a Bentson wire and subsequently a Glidewire in to the iliacs and then up into the aorta. We have followed this with a [place] catheter. And a 035 live Glidewire Advantage. Multiple orthogonal views were undertaken of the aorta and iliacs. It demonstrated dissection. At this point the endovascular portion of the procedure was terminated catheter wire sheath were then removed. We closed off the remaining arteriotomy and patch with a 6 0 Prolene. Flow was reestablished prior to closure. And flushed clear. We then reestablished flow. We did a Doppler evaluation and a there was excellent flow through the profundus femorals. At this point we covered with snow. And to seal sealant was used at the end. Deep layer was reapproximated using 2 0 Polysorb superficial layer with 3-0 poly Sorb and finally skin with elaina. Sterile dressing was applied. At the end of the case sponge instrument counts were correct. Patient tolerated the procedure well. Returned to recovery with stable vitals. Interpretation of films: 1. Left external iliac demonstrated significant calcific disease all the way up to the common iliac. Aorta demonstrated disease as well and did appear aneurysmal. The right side had prior stents which were easily visible. Completion angiogram demonstrated good flow through there was evidence of a dissection plane and it was decided that the endovascular portion of this procedure was terminated. Conclusion: 1. Successful femoral endarterectomy of left side 2. Unsuccessful iliac stenting. Will let the patient heal and may require reintervention. If that is not possible she may potentially need aortobifem bypass. This note is constructed using voice recognition software. While every effort has been made to ensure accuracy, heel washer stringing machine operator errors may have been included. Thank you for allowing me to participate in the care of your patient. Yours sincerely, Levi Mann MD, FACS, R.P.V.I.
[2021-06-17] MEDS: oxyCODONE HCl Immed Release 5 MG TABLET PO ×3 (11:42→19:59)
--- NOTE | 2021-06-17 12:57 | P.HPCC_ITS ---
History of Present Illness Date of Service: 06/17/21 Chief Complaint: Status post elective femoral endarterectomy 65-year-old lady with underlying history of AAA, CAD status post [place] and AICD placement, hypertension, PVD, cervical spondylosis, failed back syndrome, now postop day 0 after elective left femoral endarterectomy being monitored in the intensive care unit the immediate postop period. Review of Systems Constitutional: Constitutional: Denies daytime sleepiness, Denies excessive sweating, Denies fatigue, Denies fever(s), Denies lethargy, Denies malaise, Denies night sweats, Denies snoring and Denies weight loss Eyes: Eyes: Denies blurry vision and Denies itchy eyes ENT: Denies nasal congestion, Denies post nasal drip, Denies sinus pain, Denies sinus pressure and Denies other ( Thrush) Cardiovascular: Cardiovascular: Denies chest pain, Denies pedal edema, Denies dyspnea, Denies orthopnea and Denies paroxysmal nocturnal dyspnea Respiratory: Respiratory: Denies cough, Denies hemoptysis, Denies excessive phlegm production, Denies dyspnea, Denies snoring and Denies wheezing Gastrointestinal: Gastrointestinal: Denies abdominal pain and Denies heartburn Musculoskeletal: Musculoskeletal: Denies arthralgias and Denies joint swelling Integumentary/Breasts: Skin/Breast: Denies rash Neurologic: Denies memory loss and Denies seizure-like activity Psychiatric: Psychiatric: Denies abnormal sleep pattern, Denies anxiety and Denies memory loss Endocrine: Endocrine: Denies excessive sweating, Denies fatigue and Denies heat intolerance Hematologic/Lymphatic: Hematologic/Lymphatic: Denies easy bruising Allergic/Immunologic: Allergic/Immunologic: Denies itchy eyes, Denies seasonal rhinorrhea and Denies wheezing PMFSH Past Medical History Medical History (Updated 06/17/21 @ 13:02 by Trent Cardoza MD) AAA (abdominal aortic aneurysm) CAD (coronary artery disease) Cervical spondylosis CKD (chronic kidney disease) stage 3, GFR 30-59 ml/min COVID-19 vaccine series completed Failed back syndrome, lumbar Hiatal hernia History of femoral angiogram History of placement of internal cardiac defibrillator Hx of myocardial infarction Hypertension On beta rosalva at home Peripheral vascular disease Family History Family History Father Hypertension Mother No problems noted. Sister Gynecologic cancer Surgical History Surgical History Cardiac defibrillator in place History of esophagogastroduodenoscopy (EGD) History of heart bypass surgery History of lumbar fusion History of open reduction and internal fixation (ORIF) procedure History of surgery S/P CABG (coronary artery bypass graft) Social History Social History Household Members Other:: living with son Are you a primary neonatal intensive care nurse to a significant other at home: No Do you presently have visiting nurse or other home services: No Alcohol intake: never Patient Tobacco Use Status: Former Tobacco user Quit Date: 2018 Tobacco use type: Cigarette Years Smoked: 40 Second Hand Smoke Exposure: No Use of substances other than those prescribed or required for medical reasons: Yes Substance Use Type Other:: advised to hold pre-op Substance Use Frequency: Daily Have you been hit, kicked, punched, or otherwise hurt by someone within the past year? If so, by whom?: No Are you DNR?: No Advance Directives Information Provided: Yes (as above noted) Advance Directives on File: No Recently lost weight without trying: No Eating poorly because of decreased appetite: No Nutrition Risks: No Nutritional Risk Poor oral hygiene: No (upper & lower full denture) Meds Allergies Allergy/AdvReac Type Severity Reaction Status Date / Time No Known Allergies Allergy Verified 06/11/21 16:40 [No Known Allergies*] Active Medications: Current Medications Acetaminophen (Acetaminophen 325 Mg Tablet) 650 mg PO ONCE PRN PRN Reason: Pain, Mild (Pain Scale 1-3) Acetaminophen (Acetaminophen 325 Mg Tablet) 650 mg PO Q6H PRN PRN Reason: Pain, Mild (Pain Scale 1-3) Albuterol Sulfate (Albuterol Sulfate (0.083%) 2.5 Mg/3 Ml Vial.Neb) 2.5 mg INHALE ONCE PRN PRN Reason: Wheezing Fentanyl (Fentanyl Citrate/Pf 100 Mcg/2 Ml Vial) 50 mcg IVPUSH Q5M PRN; Protocol PRN Reason: Pain, Severe (Pain Scale 7-10) Fentanyl (Fentanyl Citrate/Pf 100 Mcg/2 Ml Vial) 25 mcg IVPUSH Q5M PRN; Protocol PRN Reason: Pain, Moderate (Pain Scale 4-6 Last Admin: 06/17/21 11:29 Dose: 25 mcg Documented by: Lactated Ringer's (Lr) 1,000 mls @ 0 mls/hr IVCONT .Q0M [facility] Sodium Chloride (Ns) 1,000 mls @ 80 mls/hr IVCONT .[id number] [facility] Cefazolin Sodium/Dextrose (Ancef) 2 gm in 50 mls @ 100 mls/hr IV POSTOP ONE Stop: 06/17/21 14:04 Morphine Sulfate (Morphine Sulfate 2 Mg/Ml Cartridge) 2 mg IVPUSH Q4H PRN; Protocol PRN Reason: Pain, Severe (Pain Scale 7-10) Oxycodone HCl (Oxycodone Hcl Immed Release 5 Mg Tablet) 10 mg PO ONCE PRN PRN Reason: Pain, Severe (Pain Scale 7-10) Oxycodone HCl (Oxycodone Hcl Immed Release 5 Mg Tablet) 5 mg PO Q4H PRN PRN Reason: Pain, Moderate (Pain Scale 4-6 Sodium Chloride (0.9 % Sodium Chloride Flush 3 Ml Syringe) 3 ml IVFLUSH QSHIFT [facility] Home Medications Medication Instructions Recorded Confirmed Last Taken Type naloxone 4 mg/actuation nasal spray 1 spray INTRANASAL DIRECTED 07/05/20 06/12/21 Unknown History buprenorphine HCl 750 mcg buccal 750 mcg BUCCAL BID 06/12/21 06/12/21 Unknown History film ([facility]) oxycodone 5 mg tablet 5 mg PO DAILY 06/12/21 06/12/21 06/17/21 History Physical Exam Vital Signs: Vital Signs: Last Vital Signs Temp 97.7 F 06/17/21 12:21 Pulse 50 06/17/21 12:21 Resp 17 06/17/21 12:21 BP 135/41 L 06/17/21 12:21 Pulse Ox 95 06/17/21 12:21 Body Mass Index 21.2 Const: General: no acute distress, alert and awake Eyes: Sclerae: sclerae normal EOM: EOMs intact bilaterally Neck: Neck: Yes no lymphadenopathy, Yes trachea midline and Yes supple Resp: Effort & Inspection: normal respiratory effort and no respiratory distress Auscultation: clear to auscultation bilaterally Cardio: Rate: regular rate Rhythm: regular rhythm Heart sounds: no g allops, no murmurs and no rubs GI: Palpation (GI): Soft to palpation and Other GI palpation findings present ( Nontender) Auscultation: normal bowel sounds Extrem: General: Yes no pedal edema, No clubbing, No cyanosis and Yes other (Left femoral surgical site with dressing and no hematoma) Results Labs CBC and Chem 7: 06/17/21 06:23 Labs: Laboratory Results - last 24 hr 06/17/21 06/17/21 06/17/21 06:21 06:23 06:23 MCV 94.8 MCH 31.3 MCHC 33.0 RDW 13.4 Plt Count 171 MPV 10.3 Immature Gran % (Auto) 0.3 Neut % (Auto) 68.3 Lymph % (Auto) 23.4 [place] % (Auto) 7.6 Eos % (Auto) 0.2 Baso % (Auto) 0.2 Lymph # (Auto) 2.1 [place] # (Auto) 0.7 Eos # (Auto) 0.0 Baso # (Auto) 0.0 Abs Immat Gran (auto) 0.03 Absolute Neuts (auto) 6.2 Absolute Nucleated RBC 0.000 Nucleated RBC % (auto) 0.0 PT 11.3 INR 1.0 APTT 28.5 COVID-19 (BINU) Negative COVID-19 Clin Com See Note Blood Type Antibody Screen 06/17/21 06:23 MCV MCH MCHC RDW Plt Count MPV Immature Gran % (Auto) Neut % (Auto) Lymph % (Auto) [place] % (Auto) Eos % (Auto) Baso % (Auto) Lymph # (Auto) [place] # (Auto) Eos # (Auto) Baso # (Auto) Abs Immat Gran (auto) Absolute Neuts (auto) Absolute Nucleated RBC Nucleated RBC % (auto) PT INR APTT COVID-19 (BINU) COVID-19 Clin Com Blood Type O Positive Antibody Screen NEGATIVE Assessment and Plan (1) PAD (peripheral artery disease): Status: Acute (2) CAD (coronary artery disease): Status: Acute (3) Hypertension: Status: Acute (4) CKD (chronic kidney disease) stage 3, GFR 30-59 ml/min: Status: Acute Assessment: 65-year-old lady with underlying CAD, PVD, AAA, now postop day 0 often elective left femoral endarterectomy been monitored in the intensive care unit. Plan: Neuro: No acute issues. Cardiac: Pre flushed with this status post elective left femoral endarterectomy. Vascular surgery service care patient id. Maintain systolic blood pressure in the 160. Underlying CAD. Pulmonary: No acute issues. Renal: No acute issues. Underlying CKD. Endo: No acute issues. GI: No acute issues. ID: No acute issues Heme/Onc: No acute issues. Psych: No acute issues. Miscellaneous: No acute issues. Prophylaxis: Per vascular surgery Diet: Regular
[2021-06-17] MEDS: Lactated Ringers 1,000 ML 50 ML IVCONT (13:24)
[2021-06-17] MEDS: ceFAZolin Sodium/Dextrose,Iso 2 GM/50 ML PIGGYBACK IV (13:28)
[2021-06-17 13:32] LABS: MANUAL DIFF FLAG NO
[2021-06-17 13:34] LABS: Basophils Percent Auto 0.1 % (0-2); Eosinophils Percent Auto 0.1 % (0-4); Hematocrit 26.9 % (37-47); Hemoglobin 8.6 g/dl (12.0-16.0); Imm Gran Abs Auto 0.03 X10*3/uL (0.00-0.03); Imm Gran Pct Auto 0.3 % (0.0-0.4); Lymphocytes Absolute Auto 1.4 X10*3/uL (1.2-4.9); Lymphocytes Percent Auto 15.1 % (20-40); Mean Corpuscular Hemoglobin 30.9 pg (27.0-33.0); Mean Corpuscular Volume 96.8 fL (80-98); Mean Platelet Volume 10.1 fL (9.4-12.3); Monocytes Absolute Auto 0.3 X10*3/uL (0.1-1.2); Neutrophils Absolute Auto 7.7 X10*3/uL (2.0-8.3); Neutrophils Percent Auto 81.4 % (45-73); Platelet Count 146 X10*3/uL (160-400); Red Blood Count 2.78 X10*6/uL (4.20-5.50); Red Cell Distribution Width 13.4 % (11.0-16.0); White Blood Count 9.5 X10*3/uL (4.8-10.8)
[2021-06-17 13:48] LABS: Anion Gap 12 (12-20); Blood Urea Nitrogen 22 mg/dL (9-16); Calcium 8.4 mg/dL (8.4-10.2); Carbon Dioxide 21 mmol/L (22-29); Chloride 110 mmol/L (96-108); Creatinine Clr Calc Pharmacy 34.3; Estimated Glomerular Filt Rate 50; Glucose Random 131 mg/dL (60-115); Potassium 5.4 mmol/L (3.3-5.1); Sodium 138 mmol/L (135-145)
--- NOTE | 2021-06-17 14:56 | MHC.CLN ---
RE: CONSULT 6# WT LOSS OVER 6 MONTHS PT IS 110% IBW INDICATES ADEQUATE WT FOR HT; BMI 21.2 WNL PT REPORTED 5% WT LOSS X 6 MONTHS, NON SIGNIFICANT PREVIOUS ADMISSION X 6 MONTHS 103# (11/29/20) NON SIGNIFICANT WT CHANGE HIGHEST KNOWN WT 110# (07/05/2020) DOES NOT TRIGGER FOR WT LOSS AT THIS TIME MONITOR PO INTAKE CLOSELY
[2021-06-17] MEDS: Sacubitril/Valsartan 24/26 1 TAB TABLET PO (19:59)
[2021-06-17] MEDS: Mirtazapine 7.5 MG TABLET PO (20:16)
[2021-06-17] MEDS: Morphine Sulfate 2 MG/ML CARTRIDGE IVPUSH (21:25)
[2021-06-17] MEDS: Acetaminophen 325 MG TABLET 650 MG PO (22:38)
--- NOTE | 2021-06-17 22:52 | PC.NURSE ---
Assumed care of pt at 1900. Pt A&O X3. S/P endarterectomy of left femoral artery. Dsg intact left groin with old staining clearly marked. Pedal and post tibial pulses audibly dim by doppler. Feet warm bilat. Pt denies numbess or tingling. C/O pain left groin #8/10 and received oxycodone 5 mg po with some effect but pain still #6/10 one and a half hours later and so received MOrphine 2 mg IV at 2125. Pt still having discomfort #5/10 and received tylenol 2 po at 2245. Vital signs stable. BP 134/45. Monitor shows SB, rate 50's, no ectopy noted.
[2021-06-18] VITALS (20 sets, daily range): BP systolic 99–141; BP diastolic 34–73; PULSE 48–90; RESP 9–46; TEMP 36.4–37.3; O2SAT 94–99; BMI 24.1
[2021-06-18] MEDS: 0.9 % Sodium Chloride Flush 3 ML SYRINGE IVFLUSH ×4 (00:05→20:17)
[2021-06-18] MEDS: Lactated Ringers 1,000 ML 50 ML IVCONT (00:26)
[2021-06-18] MEDS: Morphine Sulfate 2 MG/ML CARTRIDGE IVPUSH ×2 (00:26→20:17)
--- NOTE | 2021-06-18 03:42 | PC.NURSE ---
CARE ASSUMED 23:15...AWAKE..ALERT..ORIENTED X3...RESPIRATIONS EASY ON ROOM AIR...LEFT RADIAL A-LINE WITH GOOD WAVEFORM---LEFT FEMORAL DRESSING WITH OLD MARKED STAINING UNCHANGED OVERNIGHT...BOTH FEET WARM TO TOUCH---BILATERAL FAINT DOPPLER PULSES...MORPHINE AT MIDNIGHT FOR C/O SURGICAL PAIN...RESTFUL AFTERWARDS...NAPPING INTERMITTANLTY...DENIES/OFFERS NO COMPLAINTS WHEN AWAKE
[2021-06-18 05:37] LABS: MANUAL DIFF FLAG NO
[2021-06-18 05:39] LABS: Basophils Percent Auto 0.1 % (0-2); Eosinophils Percent Auto 0.2 % (0-4); Hematocrit 22.9 % (37-47); Hemoglobin 7.6 g/dl (12.0-16.0); Imm Gran Abs Auto 0.02 X10*3/uL (0.00-0.03); Imm Gran Pct Auto 0.2 % (0.0-0.4); Lymphocytes Absolute Auto 2.5 X10*3/uL (1.2-4.9); Lymphocytes Percent Auto 30.9 % (20-40); Mean Corpuscular HGB Conc 33.2 g/dl (31.0-35.0); Mean Corpuscular Hemoglobin 31.8 pg (27.0-33.0); Mean Corpuscular Volume 95.8 fL (80-98); Mean Platelet Volume 10.4 fL (9.4-12.3); Monocytes Absolute Auto 0.5 X10*3/uL (0.1-1.2); Monocytes Percent Auto 6.3 % (2-11); Neutrophils Absolute Auto 5.1 X10*3/uL (2.0-8.3); Neutrophils Percent Auto 62.3 % (45-73); Platelet Count 125 X10*3/uL (160-400); Red Blood Count 2.39 X10*6/uL (4.20-5.50); Red Cell Distribution Width 13.5 % (11.0-16.0); White Blood Count 8.2 X10*3/uL (4.8-10.8)
[2021-06-18 06:01] LABS: Anion Gap 10 (12-20); Blood Urea Nitrogen 22 mg/dL (9-16); Calcium 7.9 mg/dL (8.4-10.2); Carbon Dioxide 21 mmol/L (22-29); Chloride 111 mmol/L (96-108); Creatinine Clr Calc Pharmacy 46.2; Estimated Glomerular Filt Rate > 60; Glucose Random 93 mg/dL (60-115); Potassium 4.4 mmol/L (3.3-5.1); Sodium 138 mmol/L (135-145)
[2021-06-18] MEDS: Atorvastatin Calcium 80 MG TABLET PO (08:17)
[2021-06-18] MEDS: Clopidogrel Bisulfate 75 MG TABLET PO (08:17)
[2021-06-18] MEDS: Metoprolol Succinate ER 50 MG TAB.ER.24H PO (08:17)
[2021-06-18] MEDS: Sacubitril/Valsartan 24/26 1 TAB TABLET PO ×2 (08:17→20:09)
[2021-06-18] MEDS: oxyCODONE HCl Immed Release 5 MG TABLET PO ×3 (08:21→23:45)
[2021-06-18] MEDS: Acetaminophen 325 MG TABLET 650 MG PO (08:21)
--- NOTE | 2021-06-18 08:50 | P.PNVS_ITS ---
Subjective Subjective Date of Service: 06/18/21 Patient reports: no new complaints and feels better Interval history: Patient seen and examined. No significant events overnight. She feels relatively well. Pain well controlled. Physical Exam Vital Signs: Vital Signs: Last Vital Signs Temp 98.6 F 06/18/21 08:00 Pulse 58 06/18/21 08:17 Resp 9 L 06/18/21 08:00 BP 135/51 L 06/18/21 08:17 Pulse Ox 98 06/18/21 08:02 Body Mass Index 24.1 Const: General: cooperative, healthy appearing and no acute distress Orientation/consciousness: oriented to person, oriented to place and oriented to time HENMT: Head: Yes normal to inspection Neck: Carotids: no bruits Chest: Chest palpation & inspection: normal inspection of the chest Resp: Effort & Inspection: normal respiratory effort and able to speak in complete sentences Auscultation: clear to auscultation bilaterally Cardio: Rate: regular rate Heart sounds: S1 normal heart sound present and S2 normal heart sound present Peripheral pulses: other (Left side anterior tibial and posterior tibial signals biphasic) GI: Inspection: Yes normal to inspection Skin: Other: Left groin clean/dry/intact General skin exam: no rashes or lesions noted Wounds: no wounds Neuro: General: oriented to person, oriented to place, oriented to time and CN's II-XI intact bilaterally Extrem: General: Yes normal to inspection, Yes full ROM and Yes no clubbing, cyanosis or edema Psych: Appearance: grossly normal and well kempt Speech and movement: Normal speech and movement present Affect: normal affect Progress Note: A&P Assessment and plan (1) PAD (peripheral artery disease): Status: Acute Assessment and Plan: Postop day 1. Doing relatively stable. Out of bed to chair. Will transfer to [facility] if bed available. Emre and Eunice to be D seed. Case discussed with agile test lead. Lab values doing much better. Fall Risk Details Current Medications: Current Medications Acetaminophen (Acetaminophen 325 Mg Tablet) 650 mg PO ONCE PRN PRN Reason: Pain, Mild (Pain Scale 1-3) Acetaminophen (Acetaminophen 325 Mg Tablet) 650 mg PO Q6H PRN PRN Reason: Pain, Mild (Pain Scale 1-3) Last Admin: 06/18/21 08:21 Dose: 650 mg Documented by: Albuterol Sulfate (Albuterol Sulfate (0.083%) 2.5 Mg/3 Ml Vial.Neb) 2.5 mg INHALE ONCE PRN PRN Reason: Wheezing Atorvastatin Calcium (Atorvastatin Calcium 80 Mg Tablet) 80 mg PO DAILY [facility] Last Admin: 06/18/21 08:17 Dose: 80 mg Documented by: Calcium Carbonate (Calcium Carbonate 500 Mg Tablet) 500 mg PO DAILY [facility] Last Admin: 06/18/21 08:17 Dose: 500 mg Documented by: Clopidogrel Bisulfate (Clopidogrel Bisulfate 75 Mg Tablet) 75 mg PO DAILY [facility] Last Admin: 06/18/21 08:17 Dose: 75 mg Documented by: Diphenoxylate HCl/Atropine (Diphenoxylate/Atrop 2.5/0.025 Tablet) 1 tab PO BID PRN PRN Reason: diarrhea Lactated Ringer's (Lr) 1,000 mls @ 50 mls/hr IVCONT .Q20H [facility] Last Infusion: 06/18/21 08:43 Dose: Infused Documented by: Influenza Virus Vaccine (Flu Vacc [id number](6mos Up)/Pf 0.5 Ml Syringe) 0.5 ml IM .ONCE ONE Stop: 06/18/21 09:01 Last Admin: 06/18/21 08:21 Dose: 0.5 ml Documented by: Metoprolol Succinate (Metoprolol Succinate Er 50 Mg Tab.Er.24h) 50 mg PO DAILY [facility]; Protocol Last Admin: 06/18/21 08:17 Dose: 50 mg Documented by: Mirtazapine (Mirtazapine 7.5 Mg Tablet) 7.5 mg PO BEDTIME [facility] Last Admin: 06/17/21 20:16 Dose: 7.5 mg Documented by: Morphine Sulfate (Morphine Sulfate 2 Mg/Ml Cartridge) 2 mg IVPUSH Q4H PRN; Protocol PRN Reason: Pain, Severe (Pain Scale 7-10) Last Admin: 06/18/21 00:26 Dose: 2 mg Documented by: Oxycodone HCl (Oxycodone Hcl Immed Release 5 Mg Tablet) 5 mg PO Q4H PRN PRN Reason: Pain, Moderate (Pain Scale 4-6 Last Admin: 06/18/21 08:21 Dose: 5 mg Documented by: Sacubitril/Valsartan (Sacubitril/Valsartan 1 Tab Tablet) 1 tab PO BID [facility]; Protocol Last Admin: 06/18/21 08:17 Dose: 1 tab Documented by: Sodium Chloride (0.9 % Sodium Chloride Flush 3 Ml Syringe) 3 ml IVFLUSH QSHIFT [facility] Last Admin: 06/18/21 08:17 Dose: 3 ml Documented by: Time Spent With Patient Time: Total time spent is greater than 50% in coordination of care (as documented) at patient's floor/unit and/or counseling patient: Time with patient: 15 - 24 minutes Procedures Date of Service Date of Service: 06/18/21 Quality Stroke Does the patient have a stroke diagnosis?: No VTE Prior VTE?: No VTE Risk Level:: Surgical - moderate VTE Device Contraindication: N/A - Device Ordered VTE Drug Contraindication: N/A - Med Ordered
[2021-06-18] MEDS: Heparin Sodium,Porcine 5,000 UNIT/ML VIAL 5000 UNIT SUBCUT ×2 (09:45→17:22)
--- NOTE | 2021-06-18 09:53 | MHC.CM.PN ---
Met with pt to discuss d/c planning: pt resides alone, is independent with all care needs: no services or adaptive equipment used at home: pt states she has a supportive family who assists as needed. Pt declined needing VNA for surgical site assessment: I'll follow up with Dr. Mann, I had open heart surgery and this is nothing compared to that. Pt also states her grand daughter will assist and transport her home. HCP copy from home requested. CM to follow
--- NOTE | 2021-06-18 11:09 | PC.NURSE ---
Addendum entered by Kaela Handley RN 06/18/21 12:52: Order received to [place] [facility] Report called to NILESH Valentin Patient transferred via w/c with hospital staff on Tele pack. Original Note: Remains in ICU pending transfer order as a Left Femoral endarterectomy post-op patient of Dr. Mann. Surgeon in this AM to see patient. Peripheral pulses (+) by Doppler. A-line removed this AM per MD recommendation and Andrea discontinued. IV fluids of LR also stopped per Dr. Mann. Patient is eating/drinking and tolerating well. Medicated for pain with PO Oxycodone and 650mg Tylenol PO. Good effect noted.
--- NOTE | 2021-06-18 15:25 | HO.POSTANES ---
Post Anesthesia Evaluation Post Anesthesia Evaluation Vital Signs: Vital Signs Temp Pulse Resp BP Pulse Ox 06/18/21 13:00 98.1 F 50 18 128/60 96 06/18/21 12:00 97.6 F 61 14 127/36 L 98 06/18/21 11:00 49 L 12 99/46 L 96 06/18/21 10:00 57 15 107/35 L 97 06/18/21 09:00 53 11 L 140/53 H 98 06/18/21 08:17 58 135/51 L 06/18/21 08:02 98 06/18/21 08:00 98.6 F 58 9 L 137/50 L 97 06/18/21 07:00 54 14 136/53 L 95 06/18/21 05:33 56 16 122/38 L 96 06/18/21 05:00 90 46 H 114/42 L 96 06/18/21 04:00 98.0 F 48 L 16 112/40 L 96 Anesthesia: General Endotracheal-GETA Mental Status: Awake Pain Control: Satisfactory Nausea/Vomiting: None Hydration: Adequate Anesthesia-Related Issues: No Anes. Related Issues
[2021-06-18] MEDS: Mirtazapine 7.5 MG TABLET PO (20:10)
[2021-06-19] VITALS (8 sets, daily range): BP systolic 108–177; BP diastolic 44–78; PULSE 54–73; RESP 14–19; TEMP 36.4–37.2; O2SAT 94–99
[2021-06-19] MEDS: Morphine Sulfate 2 MG/ML CARTRIDGE IVPUSH ×2 (02:15→09:17)
[2021-06-19] MEDS: Heparin Sodium,Porcine 5,000 UNIT/ML VIAL 5000 UNIT SUBCUT ×3 (02:15→16:11)
[2021-06-19] MEDS: HYDROmorphone HCl 0.5 MG/0.5 ML SYRINGE IVPUSH (03:48)
--- NOTE | 2021-06-19 05:28 | PC.NURSE ---
P: Pt reporting 10/10 left groin pain at surgical site @ 23:00. I: Administered 2mg IV Morphine. Surgical dressing reassessed and no new bleeding noted. Night hospitalist notified, ordered stat left hip x-ray and a one time dose of 0.5mg IV Dilaudid, this RN directed to contact on-call vascular surgery. Call back received from on-call vascular surgeon, no new orders at this time. Pt down to x-ray at 0400 accompanied by nurse discharge. E: Left hip x-ray negative for acute changes. Pt resting comfortably in room.
[2021-06-19] MEDS: Atorvastatin Calcium 80 MG TABLET PO (09:14)
[2021-06-19] MEDS: Clopidogrel Bisulfate 75 MG TABLET PO (09:14)
[2021-06-19] MEDS: 0.9 % Sodium Chloride Flush 3 ML SYRINGE IVFLUSH ×3 (09:14→20:35)
[2021-06-19] MEDS: Sacubitril/Valsartan 24/26 1 TAB TABLET PO ×2 (09:15→20:33)
[2021-06-19] MEDS: Metoprolol Succinate ER 50 MG TAB.ER.24H PO (09:15)
--- NOTE | 2021-06-19 11:18 | HO.VASCPN ---
Subjective Subjective Date of Service: 06/19/21 Patient reports: no new complaints and still having pain Interval history: Patient is postop day 2 status post left femoral endarterectomy. She had significant pain last night at around 03:00. She now appears to be doing somewhat better. She notes hip and groin pain radiating around to the back. She reports that she is able to ambulate and get up to bedside commode with no difficulty. Physical Exam Vital Signs: Vital Signs: Last Vital Signs Temp 98.3 F 06/19/21 07:51 Pulse 59 06/19/21 07:51 Resp 18 06/19/21 07:51 BP 167/61 H 06/19/21 09:15 Pulse Ox 94 06/19/21 07:51 Body Mass Index 24.1 Const: General: cooperative, healthy appearing and no acute distress Orientation/consciousness: oriented to person, oriented to place and oriented to time HENMT: Head: Yes normal to inspection Neck: Carotids: no bruits Chest: Chest palpation & inspection: normal inspection of the chest Resp: Effort & Inspection: normal respiratory effort and able to speak in complete sentences Auscultation: clear to auscultation bilaterally Cardio: Rate: regular rate Heart sounds: S1 normal heart sound present and S2 normal heart sound present Peripheral pulses: dorsalis pedis present (Bilateral DP signals, left triphasic) GI: Inspection: Yes normal to inspection Skin: General skin exam: no rashes or lesions noted Wounds: no wounds Neuro: General: oriented to person, oriented to place, oriented to time and CN's II-XI intact bilaterally Extrem: General: Yes normal to inspection, Yes full ROM and Yes no clubbing, cyanosis or edema Psych: Appearance: grossly normal and well kempt Speech and movement: Normal speech and movement present Affect: normal affect Progress Note: A&P Assessment and plan (1) PAD (peripheral artery disease): Status: Acute Assessment and Plan: Patient doing well status post left femoral endarterectomy. The pain does not appear to be vascular in nature. We will try to get her back on to her pre surgical medications. The hospitalists are reaching out to Dr. boo as to her regiment. In addition we will start some physical therapy and hopefully getting her to ambulate may relieve some of her discomfort. If she is doing well I would anticipate discharge within the next day or 2. Pain control is the greatest issue right now. Thank you for allowing us to assist in this patient's care. Fall Risk Details Current Medications: Current Medications Acetaminophen (Acetaminophen 325 Mg Tablet) 650 mg PO Q6H PRN PRN Reason: Pain, Mild (Pain Scale 1-3) Last Admin: 06/18/21 08:21 Dose: 650 mg Documented by: Atorvastatin Calcium (Atorvastatin Calcium 80 Mg Tablet) 80 mg PO DAILY [facility] Last Admin: 06/19/21 09:14 Dose: 80 mg Documented by: Calcium Carbonate (Calcium Carbonate 500 Mg Tablet) 500 mg PO DAILY [facility] Last Admin: 06/19/21 09:14 Dose: 500 mg Documented by: Clopidogrel Bisulfate (Clopidogrel Bisulfate 75 Mg Tablet) 75 mg PO DAILY [facility] Last Admin: 06/19/21 09:14 Dose: 75 mg Documented by: Diphenoxylate HCl/Atropine (Diphenoxylate/Atrop 2.5/0.025 Tablet) 1 tab PO BID PRN PRN Reason: diarrhea Heparin Sodium (Porcine) (Heparin Sodium,Porcine 5,000 Unit/Ml Vial) 5,000 unit SUBCUT Q8H [facility] Last Admin: 06/19/21 09:15 Dose: 5,000 unit Documented by: Metoprolol Succinate (Metoprolol Succinate Er 50 Mg Tab.Er.24h) 50 mg PO DAILY [facility]; Protocol Last Admin: 06/19/21 09:15 Dose: 50 mg Documented by: Mirtazapine (Mirtazapine 7.5 Mg Tablet) 7.5 mg PO BEDTIME [facility] Last Admin: 06/18/21 20:10 Dose: 7.5 mg Documented by: Morphine Sulfate (Morphine Sulfate 2 Mg/Ml Cartridge) 2 mg IVPUSH Q4H PRN; Protocol PRN Reason: Pain, Severe (Pain Scale 7-10) Last Admin: 06/19/21 09:17 Dose: 2 mg Documented by: Oxycodone HCl (Oxycodone Hcl Immed Release 5 Mg Tablet) 5 mg PO Q4H PRN PRN Reason: Pain, Moderate (Pain Scale 4-6 Last Admin: 06/18/21 23:45 Dose: 5 mg Documented by: Sacubitril/Valsartan (Sacubitril/Valsartan 1 Tab Tablet) 1 tab PO BID [facility]; Protocol Last Admin: 06/19/21 09:15 Dose: 1 tab Documented by: Sodium Chloride (0.9 % Sodium Chloride Flush 3 Ml Syringe) 3 ml IVFLUSH QSHIFT [facility] Last Admin: 06/19/21 09:14 Dose: 3 ml Documented by: Time Spent With Patient Time: Total time spent is greater than 50% in coordination of care (as documented) at patient's floor/unit and/or counseling patient: Time with patient: 15 - 24 minutes Procedures Date of Service Date of Service: 06/19/21 Quality Stroke Does the patient have a stroke diagnosis?: No VTE Prior VTE?: No VTE Risk Level:: Surgical - moderate VTE Device Contraindication: N/A - Device Ordered VTE Drug Contraindication: N/A - Med Ordered
--- NOTE | 2021-06-19 11:52 | MHC.CM.PN ---
per rounds possible dc for pt plan remanins home no servceis
--- NOTE | 2021-06-19 13:41 | PM.IMPN ---
Progress Note: A&P (1) CKD (chronic kidney disease) stage 3, GFR 30-59 ml/min: Status: Acute (2) Hypertension: Status: Acute (3) CAD (coronary artery disease): Status: Acute Assessment and Plan: 65 year old women admitted by vascular surgery and is s/p endarterectomy and initially admitted to the ICU Endarterectomy. postop day 2 status post left femoral endarterectomy Pain uncontrolled, unfortunately her Belbuca medication is not available here in the pharmacy, she would have to bring from home increase morphine to 3mg Q4h and oxycodone No hematoma noted good pulses CKD Stable Avoid nephrotoxins Hypertension. Stable blood pressure. CAD/PVD Continue metoprolol, plavix and statin DVT prophylaxis with mechanical compression boots attending Dr. Vincent Subjective Subjective Date of Service: 06/19/21 Review of Systems Follow up consult endarterectomy pain to groin Physical Exam Vital Signs: Vital Signs: Last Vital Signs Temp 98.5 F 06/19/21 12:00 Pulse 54 06/19/21 12:00 Resp 14 06/19/21 12:00 BP 158/62 H 06/19/21 12:00 Pulse Ox 99 06/19/21 12:00 Body Mass Index 24.1 Appearing in no acute distress lung sounds are clear to auscultation heart regular rate rhythm, clear S1, S2 positive bowel sounds, abdomen is soft, nontender neuro patient is alert x3, no focal deficits Objective Data Current Medications Acetaminophen (Acetaminophen 325 Mg Tablet) 650 mg PO Q6H PRN PRN Reason: Pain, Mild (Pain Scale 1-3) Last Admin: 06/18/21 08:21 Dose: 650 mg Documented by: Atorvastatin Calcium (Atorvastatin Calcium 80 Mg Tablet) 80 mg PO DAILY [facility] Last Admin: 06/19/21 09:14 Dose: 80 mg Documented by: Calcium Carbonate (Calcium Carbonate 500 Mg Tablet) 500 mg PO DAILY [facility] Last Admin: 06/19/21 09:14 Dose: 500 mg Documented by: Clopidogrel Bisulfate (Clopidogrel Bisulfate 75 Mg Tablet) 75 mg PO DAILY [facility] Last Admin: 06/19/21 09:14 Dose: 75 mg Documented by: Diphenoxylate HCl/Atropine (Diphenoxylate/Atrop 2.5/0.025 Tablet) 1 tab PO BID PRN PRN Reason: diarrhea Heparin Sodium (Porcine) (Heparin Sodium,Porcine 5,000 Unit/Ml Vial) 5,000 unit SUBCUT Q8H [facility] Last Admin: 06/19/21 09:15 Dose: 5,000 unit Documented by: Metoprolol Succinate (Metoprolol Succinate Er 50 Mg Tab.Er.24h) 50 mg PO DAILY [facility]; Protocol Last Admin: 06/19/21 09:15 Dose: 50 mg Documented by: Mirtazapine (Mirtazapine 7.5 Mg Tablet) 7.5 mg PO BEDTIME [facility] Last Admin: 06/18/21 20:10 Dose: 7.5 mg Documented by: Morphine Sulfate (Morphine Sulfate 2 Mg/Ml Cartridge) 2 mg IVPUSH Q4H PRN; Protocol PRN Reason: Pain, Severe (Pain Scale 7-10) Last Admin: 06/19/21 09:17 Dose: 2 mg Documented by: Oxycodone HCl (Oxycodone Hcl Immed Release 5 Mg Tablet) 5 mg PO Q4H PRN PRN Reason: Pain, Moderate (Pain Scale 4-6 Last Admin: 06/18/21 23:45 Dose: 5 mg Documented by: Sacubitril/Valsartan (Sacubitril/Valsartan 1 Tab Tablet) 1 tab PO BID [facility]; Protocol Last Admin: 06/19/21 09:15 Dose: 1 tab Documented by: Sodium Chloride (0.9 % Sodium Chloride Flush 3 Ml Syringe) 3 ml IVFLUSH QSHIFT [facility] Last Admin: 06/19/21 09:14 Dose: 3 ml Documented by: Labs CBC & Chem 7: 06/18/21 05:12 06/18/21 05:12 Quality Stroke Does the patient have a stroke diagnosis?: No VTE Prior VTE?: No VTE Risk Level:: Surgical - moderate VTE Device Contraindication: N/A - Device Ordered VTE Drug Contraindication: N/A - Med Ordered
[2021-06-19] MEDS: Morphine Sulfate 2 MG/ML CARTRIDGE 3 MG IVPUSH ×2 (16:10→20:33)
[2021-06-19] MEDS: Mirtazapine 7.5 MG TABLET PO (20:33)
[2021-06-20] MEDS: Morphine Sulfate 2 MG/ML CARTRIDGE 3 MG IVPUSH ×2 (01:12→09:33)
[2021-06-20] MEDS: Heparin Sodium,Porcine 5,000 UNIT/ML VIAL 5000 UNIT SUBCUT ×2 (01:13→09:32)
[2021-06-20 04:00] VITALS: BP 145/65; PULSE 65; RESP 17; TEMP 36.4; O2SAT 98
[2021-06-20 07:31] VITALS: BP 130/57; PULSE 60; RESP 16; TEMP 36.8; O2SAT 97
[2021-06-20 09:32] VITALS: BP 130/57; PULSE 60
[2021-06-20] MEDS: Atorvastatin Calcium 80 MG TABLET PO (09:32)
[2021-06-20] MEDS: Sacubitril/Valsartan 24/26 1 TAB TABLET PO (09:32)
[2021-06-20] MEDS: Clopidogrel Bisulfate 75 MG TABLET PO (09:32)
[2021-06-20] MEDS: Metoprolol Succinate ER 50 MG TAB.ER.24H PO (09:32)
[2021-06-20] MEDS: 0.9 % Sodium Chloride Flush 3 ML SYRINGE IVFLUSH (09:33)
[2021-06-20 10:50] VITALS: BP 130/57; PULSE 60
[2021-06-20 11:20] VITALS: BP 115/54; PULSE 67; RESP 17; TEMP 37.1; O2SAT 97
--- NOTE | 2021-06-20 12:11 | P.DS_ITS ---
DS: Providers Provider Date of Service: 06/20/21 Date of admission: 06/17/21 06:15 Primary care physician: Iron Jin PA-C Consults: 06/18/21 15:21 Consult to Hospitalist Routine Consulting Provider: Hospitalist Reason For Exam: Medical management DS: Diagnosis Discharge Diagnosis (1) CKD (chronic kidney disease) stage 3, GFR 30-59 ml/min: Status: Acute (2) Hypertension: Status: Acute (3) CAD (coronary artery disease): Status: Acute DS: Summary Hospital Course Hospital Course: Patient was admitted on ThursdayJune 17 and underwent elective left femoral endarterectomy. Iliac vessels were too calcified to accommodate a stent. Postoperatively she did relatively well. Was observed overnight in ICU and subsequently transferred to [facility] [place]. She did on postop day 2 experience a fair amount of pain which was difficult to control. She had to stay an additional day. She was doing well from a peripheral vascular standpoint. Excellent DP and PT signals. Ambulating well. Stable for discharge Time Spent with Patient Time attestation: Total time spent providing and/or coordinating discharge services: Discharge coordination time: Greater than 30 minutes Quality: Stroke Does the patient have a stroke diagnosis?: No Physical Exam Vital Signs: Vital Signs: Last Vital Signs Temp 98.7 F 06/20/21 11:20 Pulse 67 06/20/21 11:20 Resp 17 06/20/21 11:20 BP 115/54 L 06/20/21 11:20 Pulse Ox 97 06/20/21 11:20 Body Mass Index 24.1 Const: General: cooperative, healthy appearing and no acute distress Orientation/consciousness: oriented to person, oriented to place and oriented to time HENMT: Head: Yes normal to inspection Neck: Carotids: no bruits Chest: Chest palpation & inspection: normal inspection of the chest Resp: Effort & Inspection: normal respiratory effort and able to speak in complete sentences Auscultation: clear to auscultation bilaterally Cardio: Rate: regular rate Heart sounds: S1 normal heart sound present and S2 normal heart sound present GI: Inspection: Yes normal to inspection Skin: Other: Left groin well-healing General skin exam: no rashes or lesions noted Wounds: no wounds Neuro: General: oriented to person, oriented to place, oriented to time and CN's II-XI intact bilaterally Extrem: General: Yes normal to inspection, Yes full ROM and Yes no clubbing, cyanosis or edema Psych: Appearance: grossly normal and well kempt Speech and movement: Normal speech and movement present Affect: normal affect DS: Data Data Completed and Pending Completed studies during hospitalization [Text1]: Pending at discharge 06/17/21 11:03 Surgical [PTH] Routine Discharge Plan Discharge Patient Disposition: Home Health Service Discharge Diagnosis: Peripheral vascular disease Referrals: [facility] [Outside] - 1 Week Iron Jin PA-C [Primary Care Provider] - 1 Week Discharge Medications: New oxycodone 5 mg tablet 5 mg PO Q8H PRN (Reason: pain) Qty: 14 RF: 0 Continued atorvastatin 80 mg tablet 80 mg PO DAILY Qty: 90 RF: 2 clopidogrel 75 mg tablet 75 mg PO DAILY Qty: 90 RF: 2 alendronate 70 mg tablet 70 mg PO QWEEK 84 Days Qty: 12 RF: 2 calcium carbonate [Oyster Shell Calcium] 500 mg calcium (1,250 mg) tablet 500 mg PO DAILY 90 Days Qty: 90 RF: 1 mirtazapine 7.5 mg tablet 7.5 mg PO BEDTIME Qty: 30 RF: 4 metoprolol succinate 50 mg tablet extended release 24 hr 50 mg PO DAILY Qty: 90 RF: 3 Entresto 24-26 mg tablet 1 tab PO BID Qty: 60 RF: 3 oxycodone 5 mg tablet 5 mg PO DAILY RF: 0 diphenoxylate-atropine 2.5-0.025 mg tablet 1 tab PO BID PRN (Reason: diarrhea) 30 Days Qty: 60 RF: 2 naloxone 4 mg/actuation spray,non-aerosol 1 spray intranasal DIRECTED RF: 0 dexamethasone 4 mg tablet 4 mg PO DAILY 30 Days Qty: 30 RF: 0 buprenorphine HCl [Belbuca] 900 mcg film 900 mcg buccal Q12H 30 Days Qty: 60 RF: 0 Discharge Orders: Discharge Order (Routine); Ordered 06/20/21 Ordered By: Levi Mann Diet: advance to usual diet Activity on Discharge: As tolerated Stand Alone Forms: Patient Portal Discharge page Activity Restrictions/Additional Instructions: You may shower tomorrow Take it easy today and you may ambulate around the house. Within 24 hours you can resume normal activity You may climb a flight of stairs as tolerated Do not lift anything heavier than a gallon of milk. See Dr. Mann in follow-up in approximately 2 weeks time for staple removal. You should already have an appointment if not please call my office at [phone] Please see above for any change in medications If you notice excessive bleeding from the groin please immediately call my office or return to the emergency room. Care Plan Goals: Ambulate better Health Concerns: Peripheral vascular disease Plan of Treatment: Postop surveillance follow-up Assessment: Peripheral vascular disease
--- NOTE | 2021-06-20 12:11 | P.F2F_ITS ---
Service Date Service Date: 06/20/21 Reasons for Services Reason for intermediate: postoperative assessment and/or care Reason for physical therapy: home safety and mobility Homebound: Leaving the home is medically contraindicated at this time without the asist of a device and/or another person due th the listed conditions above and below. Reason homebound: unsteady gait / fall risk Certification: Based on the above findings, I certify that this patient is confined to the home and needs intermittent intermediate care, physical therapy and/or speech therapy, or continues to need occupational therapy. The patient is under my care, and I have initiated the establishment of the plan of care. The patient will be followed by a physician who will periodically review the plan of care.
--- NOTE | 2021-06-20 12:11 | MHC.CM.PN ---
Patient has been medically cleared for dc to home today, with services. [facility] referral [facility] to [facility], who has been made aware of today's dc. Last IMM addressed on 06/18/21.
== END 2021-06-20 14:20 | disposition home health service (06) | DRG 272 ==
LOC: HO.SSSA 06:23 → HO.ICU 11:39 → HO.IMC 06-18 11:48
PROVIDERS: Internal Medicine Pulmonary Disease; Admitting Provider Surgery Vascular Surgery; PCP Physician Assistant; Visit Provider Surgery Vascular Surgery
PROC: 04CJ0ZZ Extirpation of Matter from Left External Iliac Artery, Open Approach (ICD-10-PCS; principal; 2021-06-17 07:30)
DX: I70.222 Atherosclerosis of native arteries of extremities with rest pain, left leg (principal); Z23 Encounter for immunization; I25.10 Atherosclerotic heart disease of native coronary artery without angina pectoris; I25.2 Old myocardial infarction; I12.9 Hypertensive chronic kidney disease with stage 1 through stage 4 chronic kidney disease, or unspecified chronic kidney disease; N18.30 Chronic kidney disease, stage 3 unspecified; Z95.810 Presence of automatic (implantable) cardiac defibrillator; Z87.891 Personal history of nicotine dependence; Z20.822 Contact with and (suspected) exposure to COVID-19; Z79.01 Long term (current) use of anticoagulants; Z79.899 Other long term (current) drug therapy
CPT/HCPCS: 36415; 73501; 80048; 85025; 85610; 85730; 86850; 86900; 86901; 87635; 88304; 88311; 90686; 97116; 97161; C1768; C1769; C1887; C1894; J0690; J1100; J1170; J2250; J2270; J2405; J3010; Q9967

== ENCOUNTER → 2021-07-04 14:34 | Outpatient (BNVA) | payer MEDICARE, MEDICAID, SELFPAY | PROVIDERS: PCP Physician Assistant; Visit Provider Surgery Vascular Surgery | DX: I73.9 Peripheral vascular disease, unspecified (principal) | CPT/HCPCS: 99212 ==

== ENCOUNTER 2021-07-05 09:52 | Inpatient (IN) | payer MEDICARE, MEDICAID, SELFPAY ==
[2021-07-05] VITALS (9 sets, daily range): BP systolic 88–162; BP diastolic 40–65; PULSE 61–89; RESP 17–24; TEMP 36.9–37.4; O2SAT 92–100; BMI 20.5
--- NOTE | ~2021-07-05 | XR_ITS ---
EXAMINATION: XR CHEST CLINICAL INFORMATION: Shortness of breath follow-up COMPARISON: Chest x-ray and CTA chest July 05, 2021 TECHNIQUE: Frontal view of the chest was obtained. FINDINGS: Stable cardiac silhouette. Unchanged orientation of single lead AICD. The lungs are adequately aerated. Previously identified airspace opacity centered in the right perihilar region have essentially resolved. No gross lobar consolidation identified on today's radiographs. No significant pleural effusion identified. No pneumothorax. Surgical changes of the left shoulder. XR/XR chest 1V IMPRESSION: Previously identified airspace opacity centered in the right perihilar region have essentially resolved.
--- NOTE | ~2021-07-05 | CT_ITS ---
EXAMINATION: CT ANGIOGRAM OF THE CHEST WITH AND WITHOUT CONTRAST (CT PULMONARY ANGIOGRAM FOR PE) CLINICAL INFORMATION: Shortness of breath, wheezing, elevated D-dimer. Recent surgery. Evaluate for pulmonary embolism. COMPARISON: Chest radiograph done earlier the same day. CTA chest dated 02/08/2018. TECHNIQUE: Prior to contrast administration, noncontrast localization images were obtained. Subsequently, multidetector volumetric imaging was performed from the thoracic inlet to below the diaphragms following the administration of 65 mL Omnipaque 350 intravenous contrast. No contrast reaction reported. Sagittal, coronal, and MIP oblique sagittal reformatted images were obtained on the CT workstation, uploaded to PACS, and reviewed. This CT examination was performed using dose optimization techniques as appropriate, variously including the following: *Automated exposure control *Adjustment of mA and/or kV according to patient size (this includes techniques or standardized protocols for targeted exams where dose is matched to indication/reason for exam; i.e. extremities or head) *Use of iterative reconstruction technique Total exam dose-length product 186 mGy-cm FINDINGS: QUALITY OF STUDY/CONTRAST BOLUS: Satisfactory. PULMONARY ARTERIES: No central or segmental pulmonary emboli. THORACIC AORTA: No thoracic aortic dissection. Redemonstration of severe atherosclerotic disease with focal ulceration/bulging at the proximal aspect of the descending aorta as well as intramural thrombus and dilatation at the inferior abdominal aorta. Additionally, there is partially visualized intramural thrombosis and dilatation at the superior aspect of the inferior abdominal aorta. Overall, findings appear similar when compared to the CTA chest dated 02/08/2018. No new aortic dilatation. LUNG: Evaluation is limited secondary to respiratory motion. New right perihilar opacities with patchy opacities extending superiorly into the right upper lobe. Bilateral dependent atelectasis. PLEURA: Small bilateral pleural effusions, right greater than left. Findings are new when compared to the prior examination. MEDIASTINUM: Stable cardiomegaly. No pericardial effusion. No superior mediastinal or hilar lymphadenopathy. No evidence of septal bowing or right heart strain. Left chest wall pacer with its leads in the right heart. CHEST WALL/AXILLA: No axillary or internal mammary lymphadenopathy. OSSEOUS STRUCTURES: No acute or suspicious osseous abnormality. UPPER ABDOMEN: Unremarkable. Reflux of contrast into the hepatic veins suggesting elevated right heart pressures. CT/CT angio chest PE protocol IMPRESSION: 1. No central or segmental pulmonary embolism. 2. Stable cardiomegaly with reflux of contrast into the right hepatic veins suggesting elevated right heart pressures. 3. Small bilateral pleural effusions, right greater than left, new when compared to the prior CT. 4. Right perihilar consolidative opacities with more patchy opacities extending superiorly into the right upper lobe. Prominent bilateral atelectasis. Findings are new when compared to the prior examination and are concerning for early pneumonia. Continued followup is recommended to exclude an underlying lesion. 5. Redemonstration of severe atherosclerotic disease throughout the aorta including focal areas of ulceration and dilatation, unchanged when compared to the examination from 2018. VTE: negative
--- NOTE | ~2021-07-05 | US_ITS ---
EXAMINATION: ULTRASOUND RENAL DOPPLER CLINICAL INFORMATION: Hypertension. Known AAA. Evaluate for renal artery stenosis COMPARISON: None TECHNIQUE: Routine grayscale imaging of kidneys followed by retroperitoneal renal Doppler imaging was performed. FINDINGS: The right kidney measures 10.1 x 3.8 x 5.3 cm sagittal by AP by transverse dimension. There is mild increased echogenicity with no focal lesion seen. On renal Doppler exam the right renal artery velocity proximal measures 2 53 cm/second, mid segment measures 1 83 cm/second and distal segment measures 150 cm/second. The renal aortic ratio is 3.8. Resistive index average is 0.85. The left kidney measures 9.5 x 4.8 x 5.3 cm in sagittal by AP by transverse dimension there is mild increased echogenicity but no focal lesion or hydronephrosis. The left renal artery velocity proximal measures 160 cm/second, mid segment measures 209 cm/second, distal segment measures 1 34 cm/second. Renal aortic ratio measures 3.10. Average resistive index is 0.86 The mid aorta peak systolic velocity measures 66 cm/second. US/US renal doppler IMPRESSION: Increased bilateral renal echogenicity with no focal lesion, echogenic calculi or hydronephrosis. Elevated velocity, renal aortic ratio greater than 3.5 and resistive index right kidney suggestive of renal artery stenosis greater than 60%. Elevated resistive index, renal artery ratio less than 3.5 with borderline renal artery velocity. Findings suggestive of less than 60% stenosis.
--- NOTE | ~2021-07-05 | XR_ITS ---
EXAMINATION: XR CHEST CLINICAL INFORMATION: Shortness of breath. COMPARISON: Concurrent CTA chest. TECHNIQUE: 2 views of the chest were obtained. FINDINGS: Patchy right perihilar/upper lobe airspace opacities. Trace bilateral pleural effusions. Stable cardiomegaly. Sternal wires are redemonstrated. Left chest wall AICD with its lead in the right heart. XR/XR chest 2V IMPRESSION: Patchy right perihilar and upper lobe airspace opacities, new when compared to the prior examination and concerning for pneumonia. Trace bilateral pleural effusions.
--- NOTE | 2021-07-05 10:11 | ECG_ITS ---
Test Reason : DIF BREATHING Blood Pressure : / mmHG Vent. Rate : 077 BPM Atrial Rate : 077 BPM P-R Int : 116 ms QRS Dur : 088 ms QT Int : 382 ms P-R-T Axes : 077 -18 137 degrees QTc Int : 432 ms Normal sinus rhythm Left axis deviation T-wave inversion in Lateral leads Possible Left atrial enlargement Left ventricular hypertrophy with repolarization abnormality ( [place] product ) Abnormal ECG No previous ECGs available Referred By: Amirah Mackey Electronically Signed By:KRISTOPHER SAMUEL MD
--- NOTE | 2021-07-05 10:14 | ED_ITS ---
HPI - SOB/Dyspnea General Chief Complaint: Dyspnea Stated Complaint: sob x2 days Time Seen by Provider: 07/05/21 10:11 Source: patient and EMS Mode of arrival: EMS Limitations: no limitations History of Present Illness HPI Narrative: 65 y/o female with history of HTN, CKD, AAA, depression, PAD, CAD s/p CABG in 2016, s/p ICD in 2017, who had recent (06/17) endoarterectomy of her left femoral artery with Dr. Mann who presents to the ER with 2 days of worsening SOB. She reports worsening dyspnea on exertion along with a productive cough with green and yellow phlegm. She has had no fever or chills. She also was reports upset stomach, increased gassy sensation and mild nausea. She has had no vomiting or abdominal pain. She has had no chest pain but admits to some soreness in her chest when she is coughing. She called the ambulance today when she got up to the top of her stairs she was so short of breath and felt like she could not breathe at all. She was lightheaded and dizzy. On EMS arrival patient was tachypneic and wheezy, she was not hypoxic but she was placed on O2 for comfort. MD elicited complaint: shortness of breath and cough Onset (ago): day(s) (2) Timing: constant Severity: moderate Exacerbating factors: lying flat, exertion and coughing Relieving factors: nothing Associated symptoms: cough, wheezing, sputum production, sense of impending doom, chest congestion and lightheadedness Treatment prior to arrival: oxygen Related Data Home oxygen amount: none Home Medications Medication Instructions Recorded Confirmed naloxone 4 mg/actuation nasal spray 1 spray INTRANASAL DIRECTED 07/05/2006/21 alendronate 70 mg tablet 70 mg PO SAHNI 07/05/21 07/05/21 magnesium 500 mg tablet 15 mg PO DAILY 07/05/21 07/05/21 Previous Rx's Medication Instructions Recorded atorvastatin 80 mg tablet 80 mg PO DAILY #90 cap 11/25/20 diphenoxylate-atropine 2.5 1 tab PO BID PRN 30 Days #60 tab 01/21/21 mg-0.025 mg tablet clopidogrel 75 mg tablet 75 mg PO DAILY #90 cap 02/27/21 calcium carbonate 500 mg calcium 500 mg PO DAILY 90 Days #90 tab 03/06/21 (1,250 mg) tablet (Oyster Shell Calcium) mirtazapine 7.5 mg tablet 7.5 mg PO BEDTIME #30 tab 04/08/21 metoprolol succinate 50 mg 50 mg PO DAILY #90 tab 05/26/21 tablet,extended release 24 hr sacubitril 24 mg-valsartan 26 mg 1 tab PO BID #60 tab 06/06/21 tablet (Entresto) dexamethasone 4 mg tablet 4 mg PO DAILY 30 Days #30 tab 06/11/21 buprenorphine HCl 900 mcg buccal 900 mcg BUCCAL Q12H 30 Days #60 ea 06/20/21 film (Belbuca) oxycodone 5 mg tablet 5 mg PO DAILY 30 Days #30 tab 06/26/21 Allergies Allergy/AdvReac Type Severity Reaction Status Date / Time No Known Allergies Allergy Verified 07/04/21 14:39 [No Known Allergies*] Review of Systems Review of Systems: Constitutional: No Fever, No Chills ENT/Mouth: No sore throat, No Rhinorrhea, No Swallowing Difficulty Cardiovascular: No Chest Pain, + SOB, No Orthopnea, No Edema Respiratory: + Cough, + Sputum,+ Wheezing, + dyspnea Gastrointestinal: No Nausea, No Vomiting, No Diarrhea, No abdominal Pain Genitourinary: No Dysuria, No Urinary Frequency, No Hematuria Musculoskeletal: No joint pain, No Myalgias Skin: No Skin Lesions, No rash Neuro: + Weakness, No Numbness, + Dizziness, No Headache Psych: + Anxiety/Panic, No Depression Heme/Lymph: No Bruising, No Lymphadenopathy Endocrine: No Polyuria, No Polydipsia [facility] Past Medical History Medical History (Updated 07/05/21 @ 14:45 by Williams Galeano MD) AAA (abdominal aortic aneurysm) CAD (coronary artery disease) Cervical spondylosis CKD (chronic kidney disease) stage 3, GFR 30-59 ml/min COVID-19 vaccine series completed Failed back syndrome, lumbar Hiatal hernia History of femoral angiogram History of placement of internal cardiac defibrillator Hx of myocardial infarction Hypertension Ischemic cardiomyopathy Peripheral vascular disease Surgical History (Updated 07/05/21 @ 14:41 by Williams Galeano MD) Cardiac defibrillator in place History of esophagogastroduodenoscopy (EGD) History of heart bypass surgery History of lumbar fusion History of open reduction and internal fixation (ORIF) procedure History of surgery 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 Sister Gynecologic cancer Social History Social History Household Members: Family Household Members Other:: Son Maik Housing: Apartment Are you a primary school child care attendant to a significant other at home: No Do you presently have visiting nurse or other home services: No Alcohol intake: never Patient Tobacco Use Status: Former Tobacco user Quit Date: 09/21/16 Tobacco use type: Cigarette Years Smoked: 40 Second Hand Smoke Exposure: No Substance Use Type: Marijuana Advance Directives: Yes Advance Directives Information Provided: Yes Advance Directives on File: No service: No Current occupational status: retired Physical Exam Vital Signs: Vital Signs: Last Vital Signs Temp 99.1 F 07/05/21 12:00 Pulse 78 07/05/21 14:31 Resp 24 H 07/05/21 14:31 BP 151/58 H 07/05/21 14:31 Pulse Ox 98 07/05/21 14:32 Body Mass Index 20.5 Appearance: Alert thin woman sitting straight up in bed, Oriented X3. Mild acute distress with increased RR Eyes: Pupils equal, round and reactive to light. ENT: Pharynx normal. Neck: Normal inspection. Neck supple. CVS: Normal heart rate and rhythm. Pulses normal. Respiratory: Mild respiratory distress. Respiratory of rate middle 20s. Breath sounds with expiratory wheezes throughout the left lung, most appreciated anteriorly. Abdomen: Softly distended and nontender. +BS x4 Skin: Skin warm and dry. Normal skin color. Normal skin turgor. No rashes. Extremities: No lower extremity edema. No calf tenderness. Left inguinal surgical scar is healing appropriately there is some hardness laterally that is nontender and no erythema no discharge of pus or warmth. Neuro: Oriented X 3. No motor deficit. No sensory deficit. Course Course Course Narrative: 65-year-old female with extensive cardiac history and recent femoral endarterectomy by Dr. Mann who presents with 2 days of worsening shortness of breath as well as productive cough. She rides on oxygen but was not hypoxic for EMS. On arrival she has x-ray wheezes throughout her left lung. She is moderately tachypneic but is able to speak in 4-5 word sentences. She is not tachycardic and blood pressure is stable. She has no fever. Will need t o rule out PE given her recent surgery and new onset of shortness of breath. Chest x-ray, lab workup including troponin and D-dimer have been ordered. DuoNeb ordered. Dispo pending results and improvement. Reevaluation(s) Reevaluation #1: Her wheezing has improved after DuoNeb treatment. Her BNP is significantly elevated 3923, only prior was 476 back in November of 2019. Her last echo in our system was in 2006 and showed an EF of 60%. We have no recent echocardiogram here. She denies being on any diuretic therapy at home. Will give a dose of IV Lasix now and reassess. Imaging is pending Reevaluation #2: D-dimer is elevated 855, this could be in light of her recent o peration or due to pulmonary embolism. Will proceed with CTA for further evaluation. Reevaluation #3: CT a showing no central or segmental PEs. She does have small bilateral pleural effusions right greater than left which are new. She also has some right perihilar patchy opacities and right upper lobe opacities. Given her recent surgery there is a possibility of aspiration pneumonia. She also admits to coughing episodes while trying to ED at home. Will start her on IV vancomycin and Zosyn for Hcap/aspiration pneumonia coverage. Her lactic acid is normal we will check blood cultures prior to starting antibiotics. Additional Reevaluation(s): Initial Troponin 16.2. Upon repeat was 31.8. Dr. Le was consulted who is recommending trending the troponins every 8 hours until down trend, recommended getting an echocardiogram here. And holding off on anticoagulation at this time given this is likely a secondary event and not primary cardiac ischemia. Spoke with the hospitalist to admit the patient, Dr. Gunter at the bedside to evaluate now. Patient aware and agreeable to admission to the hospital Consultations Consultation #1: Cardiology Dr. Le MDM - SOB/Dyspnea Medical Records Attestation: I reviewed the patient's medical records. Lab Data Attestation: I reviewed the patient's lab results. Result diagrams: 07/05/21 10:48 07/05/21 10:48 Labs: Lab Results 07/05/21 07/05/21 07/05/21 Range/Units 10:48 10:48 10:48 WBC 11.2 H (4.8-10.8) X10*3/uL RBC 2.76 L (4.20-5.50) X10*6/uL Hgb 8.6 L (12.0-16.0) g/dl Hct 26.8 L (37-47) % MCV 97.1 (80-98) fL MCH 31.2 (27.0-33.0) pg MCHC 32.1 (31.0-35.0) g/dl RDW 14.2 (11.0-16.0) % Plt Count 178 D (160-400) X10*3/uL MPV Not Reportable Immature Gran % (Auto) 0.4 (0.0-0.4) % Neut % (Auto) 80.2 H (45-73) % Lymph % (Auto) 12.9 L (20-40) % Kerr % (Auto) 5.7 (2-11) % Eos % (Auto) 0.6 (0-4) % Baso % (Auto) 0.2 (0-2) % Lymph # (Auto) 1.5 (1.2-4.9) X10*3/uL Kerr # (Auto) 0.6 (0.1-1.2) X10*3/uL Eos # (Auto) 0.1 (0.0-0.4) X10*3/uL Baso # (Auto) 0.0 (0.0-0.2) X10*3/uL Abs Immat Gran (auto) 0.04 H (0.00-0.03) X10*3/uL Absolute Neuts (auto) 9.0 H (2.0-8.3) X10*3/uL Absolute Nucleated RBC 0.000 (0.0-0.012) X10*3/uL Nucleated RBC % (auto) 0.0 (0.0-0.2) /100WBC Smear Tech's Comments VERIFIED PT (9.9-13.0) SEC INR (0.9-1.1) APTT (24.1-38.0) SEC D-Dimer NG/ML Sodium 137 (135-145) mmol/L Potassium 4.3 (3.3-5.1) mmol/L Chloride 109 H (96-108) mmol/L Carbon Dioxide 21 L (22-29) mmol/L Anion Gap 11 L (12-20) BUN 17 H (9-16) mg/dL Creatinine 0.97 (0.5-1.4) mg/dL Estim Creat Clear Calc 41.0 Estimated GFR 57 Random Glucose 108 (60-115) mg/dL Lactic Acid (0.5-2.0) mmol/L Calcium 8.8 D (8.4-10.2) mg/dL Magnesium 1.8 (1.6-2.6) mg/dL Troponin I High Sens (<3.5-17.0) ng/L B-Natriuretic Peptide (<100) pg/mL Procalcitonin ng/mL COVID-19 ([facility]) Negative (Negative) COVID-19 Clin Com See Note 07/05/21 07/05/21 07/05/21 Range/Units 10:48 10:48 10:48 WBC (4.8-10.8) X10*3/uL RBC (4.20-5.50) X10*6/uL Hgb (12.0-16.0) g/dl Hct (37-47) % MCV (80-98) fL MCH (27.0-33.0) pg MCHC (31.0-35.0) g/dl RDW (11.0-16.0) % Plt Count (160-400) X10*3/uL MPV Immature Gran % (Auto) (0.0-0.4) % Neut % (Auto) (45-73) % Lymph % (Auto) (20-40) % Kerr % (Auto) (2-11) % Eos % (Auto) (0-4) % Baso % (Auto) (0-2) % Lymph # (Auto) (1.2-4.9) X10*3/uL Kerr # (Auto) (0.1-1.2) X10*3/uL Eos # (Auto) (0.0-0.4) X10*3/uL Baso # (Auto) (0.0-0.2) X10*3/uL Abs Immat Gran (auto) (0.00-0.03) X10*3/uL Absolute Neuts (auto) (2.0-8.3) X10*3/uL Absolute Nucleated RBC (0.0-0.012) X10*3/uL Nucleated RBC % (auto) (0.0-0.2) /100WBC Smear Tech's Comments PT (9.9-13.0) SEC INR (0.9-1.1) APTT (24.1-38.0) SEC D-Dimer 855 NG/ML Sodium (135-145) mmol/L Potassium (3.3-5.1) mmol/L Chloride (96-108) mmol/L Carbon Dioxide (22-29) mmol/L Anion Gap (12-20) BUN (9-16) mg/dL Creatinine (0.5-1.4) mg/dL Estim Creat Clear Calc Estimated GFR Random Glucose (60-115) mg/dL Lactic Acid 1.7 (0.5-2.0) mmol/L Calcium (8.4-10.2) mg/dL Magnesium (1.6-2.6) mg/dL Troponin I High Sens 16.2 (<3.5-17.0) ng/L B-Natriuretic Peptide (<100) pg/mL Procalcitonin ng/mL COVID-19 ([facility]) (Negative) COVID-19 Clin Com 07/05/21 07/05/21 07/05/21 Range/Units 10:48 10:48 14:01 WBC (4.8-10.8) X10*3/uL RBC (4.20-5.50) X10*6/uL Hgb (12.0-16.0) g/dl Hct (37-47) % MCV (80-98) fL MCH (27.0-33.0) pg MCHC (31.0-35.0) g/dl RDW (11.0-16.0) % Plt Count (160-400) X10*3/uL MPV Immature Gran % (Auto) (0.0-0.4) % Neut % (Auto) (45-73) % Lymph % (Auto) (20-40) % Kerr % (Auto) (2-11) % Eos % (Auto) (0-4) % Baso % (Auto) (0-2) % Lymph # (Auto) (1.2-4.9) X10*3/uL Kerr # (Auto) (0.1-1.2) X10*3/uL Eos # (Auto) (0.0-0.4) X10*3/uL Baso # (Auto) (0.0-0.2) X10*3/uL Abs Immat Gran (auto) (0.00-0.03) X10*3/uL Absolute Neuts (auto) (2.0-8.3) X10*3/uL Absolute Nucleated RBC (0.0-0.012) X10*3/uL Nucleated RBC % (auto) (0.0-0.2) /100WBC Smear Tech's Comments PT (9.9-13.0) SEC INR (0.9-1.1) APTT (24.1-38.0) SEC D-Dimer NG/ML Sodium (135-145) mmol/L Potassium (3.3-5.1) mmol/L Chloride (96-108) mmol/L Carbon Dioxide (22-29) mmol/L Anion Gap (12-20) BUN (9-16) mg/dL Creatinine (0.5-1.4) mg/dL Estim Creat Clear Calc Estimated GFR Random Glucose (60-115) mg/dL Lactic Acid (0.5-2.0) mmol/L Calcium (8.4-10.2) mg/dL Magnesium (1.6-2.6) mg/dL Troponin I High Sens 31.8 H* D (<3.5-17.0) ng/L B-Natriuretic Peptide 3923 H (<100) pg/mL Procalcitonin 0.09 ng/mL COVID-19 ([facility]) (Negative) COVID-19 Clin Com 07/05/21 Range/Units 14:01 WBC (4.8-10.8) X10*3/uL RBC (4.20-5.50) X10*6/uL Hgb (12.0-16.0) g/dl Hct (37-47) % MCV (80-98) fL MCH (27.0-33.0) pg MCHC (31.0-35.0) g/dl RDW (11.0-16.0) % Plt Count (160-400) X10*3/uL MPV Immature Gran % (Auto) (0.0-0.4) % Neut % (Auto) (45-73) % Lymph % (Auto) (20-40) % Kerr % (Auto) (2-11) % Eos % (Auto) (0-4) % Baso % (Auto) (0-2) % Lymph # (Auto) (1.2-4.9) X10*3/uL Kerr # (Auto) (0.1-1.2) X10*3/uL Eos # (Auto) (0.0-0.4) X10*3/uL Baso # (Auto) (0.0-0.2) X10*3/uL Abs Immat Gran (auto) (0.00-0.03) X10*3/uL Absolute Neuts (auto) (2.0-8.3) X10*3/uL Absolute Nucleated RBC (0.0-0.012) X10*3/uL Nucleated RBC % (auto) (0.0-0.2) /100WBC Smear Tech's Comments PT 13.0 (9.9-13.0) SEC INR 1.1 (0.9-1.1) APTT 29.1 (24.1-38.0) SEC D-Dimer NG/ML Sodium (135-145) mmol/L Potassium (3.3-5.1) mmol/L Chloride (96-108) mmol/L Carbon Dioxide (22-29) mmol/L Anion Gap (12-20) BUN (9-16) mg/dL Creatinine (0.5-1.4) mg/dL Estim Creat Clear Calc Estimated GFR Random Glucose (60-115) mg/dL Lactic Acid (0.5-2.0) mmol/L Calcium (8.4-10.2) mg/dL Magnesium (1.6-2.6) mg/dL Troponin I High Sens (<3.5-17.0) ng/L B-Natriuretic Peptide (<100) pg/mL Procalcitonin ng/mL COVID-19 ([facility]) (Negative) COVID-19 Clin Com ECG Data Attestation: I personally reviewed and interpreted this ECG as follows: ECG interpretation date: 07/05/21 Prior ECG tracings: available for review Interpretation: Normal sinus rhythm, heart rate 77 beats per minute, normal VA interval, normal QRS. T-wave inversions in V5 and V6 with some ST depression in V5, this is similar to her old EKGs done in the system. Critical Care Time Critical Care Time Critical Care Time: Yes Total Critical Care Time: 48 Attestation: I have personally provided critical care time exclusive of time spent on separately billable procedures. Time includes review of lab data, radiology results, discussion with consultants, and monitoring for potential decompensation. Intervention performed as documented. Discharge Plan Discharge Clinical Impression: Acute CHF, Bilateral pleural effusion, HCAP (healthcare-associated pneumonia), Elevated troponin Patient Disposition: Admitted As Inpatient Prescriptions: No Action atorvastatin 80 mg tablet 80 mg PO DAILY Qty: 90 RF: 2 clopidogrel 75 mg tablet 75 mg PO DAILY Qty: 90 RF: 2 calcium carbonate [Oyster Shell Calcium] 500 mg calcium (1,250 mg) tablet 500 mg PO DAILY 90 Days Qty: 90 RF: 1 mirtazapine 7.5 mg tablet 7.5 mg PO BEDTIME Qty: 30 RF: 4 metoprolol succinate 50 mg tablet extended release 24 hr 50 mg PO DAILY Qty: 90 RF: 3 Entresto 24-26 mg tablet 1 tab PO BID Qty: 60 RF: 3 magnesium 500 mg Tablet 15 mg PO DAILY RF: 0 alendronate 70 mg tablet 70 mg PO SAHNI RF: 0 diphenoxylate-atropine 2.5-0.025 mg tablet 1 tab PO BID PRN (Reason: diarrhea) 30 Days Qty: 60 RF: 2 naloxone 4 mg/actuation spray,non-aerosol 1 spray intranasal DIRECTED RF: 0 dexamethasone 4 mg tablet 4 mg PO DAILY 30 Days Qty: 30 RF: 0 buprenorphine HCl [Belbuca] 900 mcg film 900 mcg buccal Q12H 30 Days Qty: 60 RF: 0 oxycodone 5 mg tablet 5 mg PO DAILY 30 Days Qty: 30 RF: 0
[2021-07-05] MEDS: Albuterol/Iprat 2.5/0.5MG 3 ML AMPUL.NEB INHALE (10:51)
[2021-07-05 10:54] LABS: Basophils Percent Auto 0.2 % (0-2); Hemoglobin 8.6 g/dl (12.0-16.0); MANUAL DIFF FLAG SCAN; Mean Corpuscular Volume 97.1 fL (80-98); PLT CLUMP 1; SCAN SMEAR FLAG 1
[2021-07-05 10:55] LABS: Eosinophils Absolute Auto 0.1 X10*3/uL (0.0-0.4); Eosinophils Percent Auto 0.6 % (0-4); Hematocrit 26.8 % (37-47); Imm Gran Abs Auto 0.04 X10*3/uL (0.00-0.03); Imm Gran Pct Auto 0.4 % (0.0-0.4); Lymphocytes Absolute Auto 1.5 X10*3/uL (1.2-4.9); Lymphocytes Percent Auto 12.9 % (20-40); Mean Corpuscular HGB Conc 32.1 g/dl (31.0-35.0); Mean Corpuscular Hemoglobin 31.2 pg (27.0-33.0); Monocytes Absolute Auto 0.6 X10*3/uL (0.1-1.2); Monocytes Percent Auto 5.7 % (2-11); Neutrophils Percent Auto 80.2 % (45-73); Platelet Count 178 X10*3/uL (160-400); Red Blood Count 2.76 X10*6/uL (4.20-5.50); Red Cell Distribution Width 14.2 % (11.0-16.0); White Blood Count 11.2 X10*3/uL (4.8-10.8)
[2021-07-05 11:02] LABS: D Dimer 855 NG/ML
[2021-07-05 11:08] LABS: Lactic Acid 1.7 mmol/L (0.5-2.0)
[2021-07-05 11:13] LABS: Anion Gap 11 (12-20); Blood Urea Nitrogen 17 mg/dL (9-16); Calcium 8.8 mg/dL (8.4-10.2); Carbon Dioxide 21 mmol/L (22-29); Chloride 109 mmol/L (96-108); Estimated Glomerular Filt Rate 57; Glucose Random 108 mg/dL (60-115); Magnesium 1.8 mg/dL (1.6-2.6); Potassium 4.3 mmol/L (3.3-5.1); Sodium 137 mmol/L (135-145)
[2021-07-05 11:18] LABS: B Type Natriuretic Peptide 3923 pg/mL (<100); Troponin-I High Sensitivity 16.2 ng/L (<3.5-17.0)
[2021-07-05 11:20] LABS: COVID-19 Test Negative (Negative)
[2021-07-05 11:36] LABS: SLIDE REVIEW VERIFIED
[2021-07-05] MEDS: Furosemide 40 MG/4 ML VIAL IVPUSH ×2 (12:13→19:08)
[2021-07-05] MEDS: iohexoL 350 MG/ML 100 ML INFUS..BTL 65 ML IV (13:05)
--- NOTE | 2021-07-05 13:32 | PHA.MEDREC ---
Pharmacy Consult ? Medication Reconciliation Pharmacy has completed the medication reconciliation. There are no remarkable issues for provider's attention. Aydee Prieto, JayashreeD
[2021-07-05 14:13] LABS: INTERNATIONAL NORM RATIO 1.1 (0.9-1.1)
[2021-07-05 14:15] LABS: Partial Thromboplastin Time 29.1 SEC (24.1-38.0)
[2021-07-05 14:30] LABS: Troponin-I High Sensitivity 31.8 ng/L (<3.5-17.0)
[2021-07-05 15:04] LABS: Procalcitonin 0.09 ng/mL
[2021-07-05] MEDS: Piperacillin Sodium/Tazobactam 4.5 GM in 0.9 % Sodium Chloride 100 ML IV (15:08)
--- NOTE | 2021-07-05 15:19 | P.HPHOSP_ITS ---
History of Present Illness Date of Service: 07/05/21 Chief Complaint: sob 65F with pmh ischemic cardiomyopathy, PVD with left femoral endartectomy 06/17/21, presented with 2 days shortness of breath. she states sob started slowly 2 days ptp, worse at night, worse on lying down. she felt ok during day ptp, went to follow up with vascular and was feeling okay, but the started having worsening sob to point where she called EMS on day of presentation. patient is not on diuretics at home, denies recent weight gain or worsening swelling. in ED BNP significantly elevated, signs of chf/pna on imaging. Review of Systems Review of Systems: Constitutional: Denies fever, denies Chills Eyes: denies blurry vision ENT: denies sore throat CVS: denies chest pain Respiratory: dyspnea GI: no abdominal pain : denies dysuria MSK: denies neck pain Skin: denies rash Neuro: denies specific motor weakness Psych: denies suicidal ideation Endocrine: denies heat/cold intolerance Hematologic: denies easy bleeding Allergy: denies hives [facility] Medical History AAA (abdominal aortic aneurysm) CAD (coronary artery disease) Cervical spondylosis CKD (chronic kidney disease) stage 3, GFR 30-59 ml/min COVID-19 vaccine series completed Failed back syndrome, lumbar Hiatal hernia History of femoral angiogram History of placement of internal cardiac defibrillator Hx of myocardial infarction Hypertension Ischemic cardiomyopathy Peripheral vascular disease Family History Father Hypertension Mother No problems noted. Sister Gynecologic cancer Pertinent family history: . 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) S/P CABG (coronary artery bypass graft) Social History Household Members: Family Household Members Other:: Sebastien Pleitez Housing: Apartment Are you a primary point of care specialist to a significant other at home: No Do you presently have visiting nurse or other home services: No Alcohol intake: never Patient Tobacco Use Status: Former Tobacco user Quit Date: 09/21/16 Tobacco use type: Cigarette Years Smoked: 40 Second Hand Smoke Exposure: No Substance Use Type: Marijuana Advance Directives: Yes Advance Directives Information Provided: Yes Advance Directives on File: No service: No Current occupational status: retired Meds Allergies Allergy/AdvReac Type Severity Reaction Status Date / Time No Known Allergies Allergy Verified 07/04/21 14:39 [No Known Allergies*] Active Medications: Current Medications Atorvastatin Calcium (Atorvastatin Calcium 80 Mg Tablet) 80 mg PO DAILY [facility] Calcium Carbonate (Calcium Carbonate 500 Mg Tablet) 500 mg PO DAILY [facility] Clopidogrel Bisulfate (Clopidogrel Bisulfate 75 Mg Tablet) 75 mg PO DAILY [facility] Dexamethasone (Dexamethasone 4 Mg Tablet) 4 mg PO DAILY [facility] Diphenoxylate HCl/Atropine (Diphenoxylate/Atrop 2.5/0.025 Tablet) 1 tab PO BID PRN PRN Reason: diarrhea Furosemide (Furosemide 40 Mg/4 Ml Vial) 40 mg IVPUSH BID@0900,1800 [facility]; Protocol Vancomycin HCl 1,000 mg/ (Sodium Chloride) 270 mls @ 270 mls/hr IV ONCE ONE Stop: 07/05/21 15:59 Metoprolol Succinate (Metoprolol Succinate Er 50 Mg Tab.Er.24h) 50 mg PO DAILY [facility]; Protocol Mirtazapine (Mirtazapine 7.5 Mg Tablet) 7.5 mg PO BEDTIME [facility] Non-Formulary Medication (Buprenorphine Hcl [Belbuca]) 900 mcg BUCCAL Q12H [facility] Pharmacy Consult (Consult Rx Vancomycin Dosing) 1 each MISCELLANE DAILY PRN PRN Reason: Consult order Sacubitril/Valsartan (Sacubitril/Valsartan 1 Tab Tablet) 1 tab PO BID [facility]; Protocol Home Medications Medication Instructions Recorded Confirmed Last Taken Type naloxone 4 mg/actuation nasal spray 1 spray INTRANASAL DIRECTED 07/05/20 07/05/21 07/04/21 History alendronate 70 mg tablet 70 mg PO SAHNI 07/05/21 07/05/21 06/30/21 History magnesium 500 mg tablet 15 mg PO DAILY 07/05/21 07/05/21 07/04/21 History Physical Exam Vital Signs and Narrative: Vital Signs: Last Vital Signs Temp 99.1 F 07/05/21 12:00 Pulse 78 07/05/21 14:31 Resp 24 H 07/05/21 14:31 BP 151/58 H 07/05/21 14:31 Pulse Ox 98 07/05/21 14:32 Body Mass Index 20.5 General: frail, dyspneic HEENT: atraumatic Neck: normal to visual inspection CVS: S1, S2, RRR, systolic murmur Resp: crackles at bilateral bases Chest: non tender GI: soft, non tender, non distended : no CVA tenderness Skin: no rashes Extremities: no edema Neuro: Oriented X3, grossly intact Psych: cooperative Results Labs CBC and Chem 7: 07/05/21 10:48 07/05/21 10:48 Labs: Laboratory Results - last 24 hr 07/05/21 07/05/21 07/05/21 10:48 10:48 10:48 MCV 97.1 MCH 31.2 MCHC 32.1 RDW 14.2 Plt Count 178 D MPV Not Reportable Immature Gran % (Auto) 0.4 Neut % (Auto) 80.2 H Lymph % (Auto) 12.9 L [place] % (Auto) 5.7 Eos % (Auto) 0.6 Baso % (Auto) 0.2 Lymph # (Auto) 1.5 [place] # (Auto) 0.6 Eos # (Auto) 0.1 Baso # (Auto) 0.0 Abs Immat Gran (auto) 0.04 H Absolute Neuts (auto) 9.0 H Absolute Nucleated RBC 0.000 Nucleated RBC % (auto) 0.0 Smear Tech's Comments VERIFIED PT INR APTT D-Dimer Anion Gap 11 L Estim Creat Clear Calc 41.0 Estimated GFR 57 Random Glucose 108 Lactic Acid Calcium 8.8 D Magnesium 1.8 Troponin I High Sens B-Natriuretic Peptide Procalcitonin COVID-19 ([facility]) Negative COVID-19 Clin Com See Note 07/05/21 07/05/21 07/05/21 10:48 10:48 10:48 MCV MCH MCHC RDW Plt Count MPV Immature Gran % (Auto) Neut % (Auto) Lymph % (Auto) [place] % (Auto) Eos % (Auto) Baso % (Auto) Lymph # (Auto) [place] # (Auto) Eos # (Auto) Baso # (Auto) Abs Immat Gran (auto) Absolute Neuts (auto) Absolute Nucleated RBC Nucleated RBC % (auto) Smear Tech's Comments PT INR APTT D-Dimer 855 Anion Gap Estim Creat Clear Calc Estimated GFR Random Glucose Lactic Acid 1.7 Calcium Magnesium Troponin I High Sens 16.2 B-Natriuretic Peptide Procalcitonin COVID-19 ([facility]U) COVID-19 Clin Com 07/05/21 07/05/21 07/05/21 10:48 10:48 14:01 MCV MCH MCHC RDW Plt Count MPV Immature Gran % (Auto) Neut % (Auto) Lymph % (Auto) [place] % (Auto) Eos % (Auto) Baso % (Auto) Lymph # (Auto) [place] # (Auto) Eos # (Auto) Baso # (Auto) Abs Immat Gran (auto) Absolute Neuts (auto) Absolute Nucleated RBC Nucleated RBC % (auto) Smear Tech's Comments PT INR APTT D-Dimer Anion Gap Estim Creat Clear Calc Estimated GFR Random Glucose Lactic Acid Calcium Magnesium Troponin I High Sens 31.8 H* D B-Natriuretic Peptide 3923 H Procalcitonin 0.09 COVID-19 ([facility]U) COVID-19 Clin Com 07/05/21 14:01 MCV MCH MCHC RDW Plt Count MPV Immature Gran % (Auto) Neut % (Auto) Lymph % (Auto) [place] % (Auto) Eos % (Auto) Baso % (Auto) Lymph # (Auto) [place] # (Auto) Eos # (Auto) Baso # (Auto) Abs Immat Gran (auto) Absolute Neuts (auto) Absolute Nucleated RBC Nucleated RBC % (auto) Smear Tech's Comments PT 13.0 INR 1.1 APTT 29.1 D-Dimer Anion Gap Estim Creat Clear Calc Estimated GFR Random Glucose Lactic Acid Calcium Magnesium Troponin I High Sens B-Natriuretic Peptide Procalcitonin COVID-19 ([facility]U) COVID-19 Clin Com Imaging Radiologist's Impressions: Impressions Chest X-Ray 07/05/21 10:11 IMPRESSION: Patchy right perihilar and upper lobe airspace opacities, new when compared to the prior examination and concerning for pneumonia. Trace bilateral pleural effusions. Chest CTA 07/05/21 11:25 IMPRESSION: 1. No central or segmental pulmonary embolism. 2. Stable cardiomegaly with reflux of contrast into the right hepatic veins suggesting elevated right heart pressures. 3. Small bilateral pleural effusions, right greater than left, new when compared to the prior CT. 4. Right perihilar consolidative opacities with more patchy opacities extending superiorly into the right upper lobe. Prominent bilateral atelectasis. Findings are new when compared to the prior examination and are concerning for early pneumonia. Continued followup is recommended to exclude an underlying lesion. 5. Redemonstration of severe atherosclerotic disease throughout the aorta including focal areas of ulceration and dilatation, unchanged when compared to the examination from 2018. VTE: negative Assessment and Plan (1) Ischemic cardiomyopathy: Status: Acute (2) CAD (coronary artery disease): Status: Acute 65F presented with sob acute on chronic systolic chf (ischemic) IV lasix, is and os, monitor bmp, cardio eval, has recent echo from [facility] will get records continue plavix, lipitor toprol, entresto elevated troponins - likely strain, monitor PVD plavix, statin Quality Stroke Does the patient have a stroke diagnosis?: No VTE Prior VTE?: No VTE Risk Level:: Medical - moderate - high VTE Device Contraindication: Treatment Not Indicated VTE Drug Contraindication: N/A - Med Ordered
[2021-07-05] MEDS: vancomycin HCL 1,000 MG in 0.9 % Sodium Chloride 250 ML 270 MG IV (16:21)
[2021-07-05] MEDS: 0.9 % Sodium Chloride Flush 3 ML SYRINGE IVFLUSH (16:31)
[2021-07-06] VITALS (8 sets, daily range): BP systolic 90–117; BP diastolic 46–58; PULSE 54–96; RESP 15–18; TEMP 36.1–36.9; O2SAT 98–99
[2021-07-06] MEDS: traMADoL HCL 50 MG TABLET 25 MG PO (03:36)
[2021-07-06 06:23] LABS: Hematocrit 28.9 % (37-47); Mean Corpuscular HGB Conc 34.6 g/dl (31.0-35.0); Mean Corpuscular Hemoglobin 32.3 pg (27.0-33.0); Mean Corpuscular Volume 93.2 fL (80-98); Mean Platelet Volume 10.3 fL (9.4-12.3); Platelet Count 199 X10*3/uL (160-400); White Blood Count 10.9 X10*3/uL (4.8-10.8)
[2021-07-06 07:00] LABS: Anion Gap 20 (12-20); Blood Urea Nitrogen 16 mg/dL (9-16); Calcium 9.4 mg/dL (8.4-10.2); Carbon Dioxide 23 mmol/L (22-29); Chloride 100 mmol/L (96-108); Creatinine Clr Calc Pharmacy 36.5; Estimated Glomerular Filt Rate 50; Glucose Fasting 104 mg/dL (60-99); Magnesium 1.6 mg/dL (1.6-2.6); Sodium 139 mmol/L (135-145)
[2021-07-06] MEDS: Enoxaparin Sodium 40 MG/0.4 ML SYRINGE SUBCUT (08:40)
[2021-07-06] MEDS: dexAMETHasone 4 MG TABLET PO (08:40)
[2021-07-06] MEDS: Furosemide 40 MG/4 ML VIAL IVPUSH ×2 (08:40→17:04)
[2021-07-06] MEDS: Magnesium Oxide 400 MG TABLET PO ×2 (08:40→16:57)
[2021-07-06] MEDS: Metoprolol Succinate ER 50 MG TAB.ER.24H PO (08:40)
[2021-07-06] MEDS: Clopidogrel Bisulfate 75 MG TABLET PO (08:40)
[2021-07-06] MEDS: Sacubitril/Valsartan 24/26 1 TAB TABLET PO ×2 (09:16→20:49)
--- NOTE | 2021-07-06 10:35 | P.CONCA_ITS ---
History of Present Illness History of Present Illness Date of Service: 07/06/21 Requesting physician: Williams Galeano Consult reason: congestive heart failure Chief complaint: CHF Narrative: I was requested to see Luci in cardiology consultation today for sudden onset shortness of breath consistent with congestive heart failure. She is a pleasant 65-year-old woman with prior history of coronary artery disease status post 2 vessel coronary bypass grafting in 2016 for myocardial infarction, subsequently ended up having severe ischemic cardiomyopathy she thinks her LVEF is around 20% with no hospitalization for heart failure as per her, taking all her medications. Status post [facility] ICD placement for primary prevention. She has prior history of vascular disease with abdominal aortic aneurysm as well as bilateral peripheral vascular disease. Recently underwent left femoral endarterectomy for rest ischemia by Dr. Mann. She was discharged about 9 days ago from the hospital. Says 2 days following the discharge she was at home and she suddenly got acutely short of breath with cough. Symptoms then subsided. She did not have any chest discomfort at that time. Symptoms then happened again and again subsided on their own. She sought this might be due to COVID infection and got herself tested which was negative. She also has cough productive of phlegm. She then did well and yesterday morning developed sudden onset severe shortness of breath and was not able to breathe at all. She had no associated chest discomfort. She then advised her son to call 911 and came to the emergency room. She was noted to be in florid congestive heart failure with BNP in the 3900 range with chest x-ray finding consistent with pulmonary edema. She has diuresed and since yesterday has had has had good urine output, however the output has not been appropriately monitored or charted. She is feeling much better today. She is not significantly more anemic than her baseline as per the last. Troponins are elevated but flat. No acute ischemic EKG changes. She has been taking all her medications at home. She denies any palpitations. Review of Systems Constitutional: Constitutional: Reports no additional constitutional complaints ENT: Reports system reviewed and no additional complaints, except as documented Cardiovascular: Cardiovascular: Denies chest pain, Denies lightheadedness, Denies Loss of Consciousness, Denies palpitations, Reports dyspnea and Reports orthopnea Respiratory: Respiratory: Reports cough and Reports dyspnea Gastrointestinal: Gastrointestinal: Reports no additional gastrointestinal complaints Genitourinary: Genitourinary: Reports no additional female genitourinary complaints Musculoskeletal: Musculoskeletal: Reports no additional musculoskeletal complaints Integumentary/Breasts: Skin/Breast: Reports system reviewed and no additional complaints, except as docu Neurologic: Reports system reviewed and no additional complaints, except as documented Psychiatric: Psychiatric: Reports no additional psychiatric complaints Endocrine: Endocrine: Reports no additional endocrine complaints and Denies palpitations Hematologic/Lymphatic: Hematologic/Lymphatic: Reports no additional hematologic/lymphatic complaints Allergic/Immunologic: Allergic/Immunologic: Reports no additional allergic/i mmunologic complaints [facility] Past Medical History Medical History AAA (abdominal aortic aneurysm) CAD (coronary artery disease) Cervical spondylosis CKD (chronic kidney disease) stage 3, GFR 30-59 ml/min COVID-19 vaccine series completed Failed back syndrome, lumbar Hiatal hernia History of femoral angiogram History of placement of internal cardiac defibrillator Hx of myocardial infarction Hypertension Ischemic cardiomyopathy Peripheral vascular disease Family History Family History Father Hypertension Mother No problems noted. 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) S/P CABG (coronary artery bypass graft) Social History Social History Household Members: Family Household Members Other:: Sebastien Pleitez Housing: Apartment Are you a primary assistant child care teacher to a significant other at home: No Do you presently have visiting nurse or other home services: No Alcohol intake: unknown Patient Tobacco Use Status: Former Tobacco user Quit Date: 09/21/16 Tobacco use type: Cigarette Years Smoked: 40 Second Hand Smoke Exposure: No Use of substances other than those prescribed or required for medical reasons: No Substance Use Type: Marijuana Advance Directives: Yes Advance Directives Information Provided: Yes Advance Directives on File: No service: No Current occupational status: retired Meds Allergies Allergy/AdvReac Type Severity Reaction Status Date / Time No Known Allergies Allergy Verified 07/04/21 14:39 [No Known Allergies*] Active Medications: Current Medications Acetaminophen (Acetaminophen 325 Mg Tablet) 650 mg PO Q6H PRN PRN Reason: Pain, Mild (Pain Scale 1-3) Atorvastatin Calcium (Atorvastatin Calcium 80 Mg Tablet) 80 mg PO BEDTIME [facility] Calcium Carbonate (Calcium Carbonate 500 Mg Tablet) 500 mg PO DAILY [facility] Last Admin: 07/06/21 08:46 Dose: 500 mg Documented by: Clopidogrel Bisulfate (Clopidogrel Bisulfate 75 Mg Tablet) 75 mg PO DAILY [facility] Last Admin: 07/06/21 08:40 Dose: 75 mg Documented by: Dexamethasone (Dexamethasone 4 Mg Tablet) 4 mg PO DAILY [facility] Last Admin: 07/06/21 08:40 Dose: 4 mg Documented by: Diphenoxylate HCl/Atropine (Diphenoxylate/Atrop 2.5/0.025 Tablet) 1 tab PO BID PRN PRN Reason: diarrhea Enoxaparin Sodium (Enoxaparin Sodium 40 Mg/0.4 Ml Syringe) 40 mg SUBCUT DAILY [facility] Last Admin: 07/06/21 08:40 Dose: 40 mg Documented by: Furosemide (Furosemide 40 Mg/4 Ml Vial) 40 mg IVPUSH BID@0900,1800 [facility]; Protocol Last Admin: 07/06/21 08:40 Dose: 40 mg Documented by: Magnesium Oxide (Magnesium Oxide 400 Mg Tablet) 400 mg PO BIDPC [facility] Last Admin: 07/06/21 08:40 Dose: 400 mg Documented by: Metoprolol Succinate (Metoprolol Succinate Er 50 Mg Tab.Er.24h) 50 mg PO DAILY [facility]; Protocol Last Admin: 07/06/21 08:40 Dose: 50 mg Documented by: Mirtazapine (Mirtazapine 7.5 Mg Tablet) 7.5 mg PO BEDTIME [facility] Last Admin: 07/06/21 00:48 Dose: Not Given Documented by: Patient Own Med ( Buprenorphine Hcl [ Belbuca] 900 Mcg Film) 1 each BUCCAL Q12H [facility] Last Admin: 07/06/21 08:41 Dose: 1 each Documented by: Pharmacy Consult (Consult Rx Vancomycin Dosing) 1 each MISCELLANE DAILY PRN PRN Reason: Consult order Sacubitril/Valsartan (Sacubitril/Valsartan 1 Tab Tablet) 1 tab PO BID [facility]; Protocol Last Admin: 07/06/21 09:16 Dose: 1 tab Documented by: Sodium Chloride (0.9 % Sodium Chloride Flush 3 Ml Syringe) 3 ml IVFLUSH QSHIFT [facility] Last Admin: 07/06/21 07:39 Dose: Not Given Documented by: Home Medications Medication Instructions Recorded Confirmed Last Taken Type naloxone 4 mg/actuation nasal spray 1 spray INTRANASAL DIRECTED 07/05/20 07/05/21 07/04/21 History alendronate 70 mg tablet 70 mg PO SAHNI 07/05/21 07/05/21 06/30/21 History magnesium 500 mg tablet 15 mg PO DAILY 07/05/21 07/05/21 07/04/21 History Physical Exam Vital Signs: Vital Signs: Last Vital Signs Temp 99.0 F 07/05/21 23:49 Pulse 67 07/06/21 04:00 Resp 18 07/06/21 04:00 BP 117/50 L 07/06/21 08:40 Pulse Ox 97 07/05/21 23:49 Body Mass Index 20.5 Const: General: cooperative, comfortable, alert, awake and in distress mild and respiratory Nutritional Appearance: thin Orientation/consciousness: patient oriented x3 HENMT: Head: Yes normocephalic and Yes atraumatic Neck: Neck: Yes trachea midline, Yes supple and Yes no JVD Chest: Chest palpation & inspection: normal inspection of the chest and other (Well-healed sternotomy scar) Resp: Effort & Inspection: normal respiratory effort Auscultation: rales bilateral at the base Cardio: Jugular venous distension: no JVD Palpation: abnormal PMI displaced PMI Rate: regular rate Rhythm: regular rhythm Heart sounds: S1 normal heart sound present, S2 normal heart sound present, no click, no gallops, no murmurs and no rubs GI: Auscultation: normal bowel sounds Skin: General skin exam: no rashes or lesions noted Neuro: General: patient oriented x3 and no focal motor deficits Extrem: General: Yes no clubbing, cyanosis or edema Psych: Appearance: grossly normal Results Labs and Meds Result diagrams: 07/06/21 05:59 07/06/21 05:59 Lab results: Laboratory Results - last 24 hr 07/05/21 07/05/21 07/05/21 10:48 10:48 10:48 WBC 11.2 H RBC 2.76 L Hgb 8.6 L Hct 26.8 L MCV 97.1 MCH 31.2 MCHC 32.1 RDW 14.2 Plt Count 178 D MPV Not Reportable Immature Gran % (Auto) 0.4 Neut % (Auto) 80.2 H Lymph % (Auto) 12.9 L [place] % (Auto) 5.7 Eos % (Auto) 0.6 Baso % (Auto) 0.2 Lymph # (Auto) 1.5 [place] # (Auto) 0.6 Eos # (Auto) 0.1 Baso # (Auto) 0.0 Abs Immat Gran (auto) 0.04 H Absolute Neuts (auto) 9.0 H Absolute Nucleated RBC 0.000 Nucleated RBC % (auto) 0.0 Smear Tech's Comments VERIFIED PT INR APTT D-Dimer Sodium 137 Potassium 4.3 Chloride 109 H Carbon Dioxide 21 L Anion Gap 11 L BUN 17 H Creatinine 0.97 Estim Creat Clear Calc 41.0 Estimated GFR 57 Random Glucose 108 Fasting Glucose Lactic Acid Calcium 8.8 D Magnesium 1.8 Troponin I High Sens B-Natriuretic Peptide Procalcitonin COVID-19 (BINU) Negative COVID-Degreed Clin Com See Note 07/05/21 07/05/21 07/05/21 10:48 10:48 10:48 WBC RBC Hgb Hct MCV MCH MCHC RDW Plt Count MPV Immature Gran % (Auto) Neut % (Auto) Lymph % (Auto) [place] % (Auto) Eos % (Auto) Baso % (Auto) Lymph # (Auto) [place] # (Auto) Eos # (Auto) Baso # (Auto) Abs Immat Gran (auto) Absolute Neuts (auto) Absolute Nucleated RBC Nucleated RBC % (auto) Smear Tech's Comments PT INR APTT D-Dimer 855 Sodium Potassium Chloride Carbon Dioxide Anion Gap BUN Creatinine Estim Creat Clear Calc Estimated GFR Random Glucose Fasting Glucose Lactic Acid 1.7 Calcium Magnesium Troponin I High Sens 16.2 B-Natriuretic Peptide Procalcitonin COVID-19 (BINU) COVID-Hycrete 07/05/21 07/05/21 07/05/21 10:48 10:48 14:01 WBC RBC Hgb Hct MCV MCH MCHC RDW Plt Count MPV Immature Gran % (Auto) Neut % (Auto) Lymph % (Auto) [place] % (Auto) Eos % (Auto) Baso % (Auto) Lymph # (Auto) [place] # (Auto) Eos # (Auto) Baso # (Auto) Abs Immat Gran (auto) Absolute Neuts (auto) Absolute Nucleated RBC Nucleated RBC % (auto) Smear Tech's Comments PT INR APTT D-Dimer Sodium Potassium Chloride Carbon Dioxide Anion Gap BUN Creatinine Estim Creat Clear Calc Estimated GFR Random Glucose Fasting Glucose Lactic Acid Calcium Magnesium Troponin I High Sens 31.8 H* D B-Natriuretic Peptide 3923 H Procalcitonin 0.09 COVID-19 (BINU) COVID-19 [place] 07/05/21 07/05/21 07/06/21 14:01 21:40 05:59 WBC 10.9 H RBC 3.10 L Hgb 10.0 L Hct 28.9 L MCV 93.2 MCH 32.3 MCHC 34.6 RDW 14.0 Plt Count 199 MPV 10.3 Immature Gran % (Auto) Neut % (Auto) Lymph % (Auto) [place] % (Auto) Eos % (Auto) Baso % (Auto) Lymph # (Auto) [place] # (Auto) Eos # (Auto) Baso # (Auto) Abs Immat Gran (auto) Absolute Neuts (auto) Absolute Nucleated RBC 0.000 Nucleated RBC % (auto) 0.0 Smear Tech's Comments PT 13.0 INR 1.1 APTT 29.1 D-Dimer Sodium Potassium Chloride Carbon Dioxide Anion Gap BUN Creatinine Estim Creat Clear Calc Estimated GFR Random Glucose Fasting Glucose Lactic Acid Calcium Magnesium Troponin I High Sens 32.0 H* B-Natriuretic Peptide Procalcitonin COVID-19 (BINU) COVID-Hycrete 07/06/21 05:59 WBC RBC Hgb Hct MCV MCH MCHC RDW Plt Count MPV Immature Gran % (Auto) Neut % (Auto) Lymph % (Auto) [place] % (Auto) Eos % (Auto) Baso % (Auto) Lymph # (Auto) [place] # (Auto) Eos # (Auto) Baso # (Auto) Abs Immat Gran (auto) Absolute Neuts (auto) Absolute Nucleated RBC Nucleated RBC % (auto) Smear Tech's Comments PT INR APTT D-Dimer Sodium 139 Potassium 4.0 Chloride 100 Carbon Dioxide 23 Anion Gap 20 BUN 16 Creatinine 1.09 Estim Creat Clear Calc 36.5 Estimated GFR 50 Random Glucose Fasting Glucose 104 H Lactic Acid Calcium 9.4 D Magnesium 1.6 Troponin I High Sens B-Natriuretic Peptide Procalcitonin COVID-19 (BINU) COVID-19 Clin Com EKG shows normal sinus rhythm with left axis deviation with lateral ST T wave changes that could represent ischemia repolarization abnormality Imaging Radiologist's impression: Impressions Chest X-Ray 07/05/21 10:11 IMPRESSION: Patchy right perihilar and upper lobe airspace opacities, new when compared to the prior examination and concerning for pneumonia. Trace bilateral pleural effusions. Chest CTA 07/05/21 11:25 IMPRESSION: 1. No central or segmental pulmonary embolism. 2. Stable cardiomegaly with reflux of contrast into the right hepatic veins suggesting elevated right heart pressures. 3. Small bilateral pleural effusions, right greater than left, new when compared to the prior CT. 4. Right perihilar consolidative opacities with more patchy opacities extending superiorly into the right upper lobe. Prominent bilateral atelectasis. Findings are new when compared to the prior examination and are concerning for early pneumonia. Continued followup is recommended to exclude an underlying lesion. 5. Redemonstration of severe atherosclerotic disease throughout the aorta including focal areas of ulceration and dilatation, unchanged when compared to the examination from 2018. VTE: negative Assessment and Plan (1) Acute congestive heart failure: Status: Acute Patient presents with acute pulmonary edema, trigger unclear could be recent major vascular surgery in the setting of known prior severe ischemic cardiomyopathy. There does not appear to be any arrhythmias or acute ischemia at this point in time. She is also not significantly more anemic at this point time. Continue monitor hematocrit. At this point time continue IV diuresis with Lasix. Strict intake and output chart needs to be maintained in this patient. CHF education needs to be provided. She has never had congestive heart failure admissions in the past. Continue metoprolol Entresto therapy. Given her blood pressure right now would not maximize Entresto. Add Aldactone 12.5 mg to her regimen. Follow-up BMP tomorrow. Echocardiogram today to assess for any other obvious causes for her decompensated heart failure. This will be scheduled for today. (2) Ischemic cardiomyopathy: Status: Acute Ischemic cardiomyopathy severe LV systolic dysfunction related to prior myocardial infarction. She had a myocardial perfusion imaging prior to her surgery which was as per her nonischemic. There is no evidence of significant rising troponin suggestive of acute myocardial infarction at this point time. Continue metoprolol and Entresto for neurohormonal modulation. Add Aldactone as above. Will follow with you. Thank you for allowing me to partake in the care Procedures Date of Service Date of Service: 07/06/21
--- NOTE | 2021-07-06 10:53 | P.PNIM_ITS ---
Subjective Subjective Date of Service: 07/06/21 Interval History: cc: sob interval history: noted improvement, still sob Cardiovascular Cardiovascular: Reports no additional cardiovascular complaints Respiratory Respiratory: Reports no additional respiratory complaints Physical Exam Vital Signs: Vital Signs: Last Vital Signs Temp 99.0 F 07/05/21 23:49 Pulse 67 07/06/21 04:00 Resp 18 07/06/21 04:00 BP 117/50 L 07/06/21 08:40 Pulse Ox 97 07/05/21 23:49 Body Mass Index 20.5 General: AO X 3, no acute distress Resp: improved basilar crackles, no accessory muscles used CVS: S1,S2,RRR, murmur GI: soft, non tender, non distended Neuro: motor grossly intact, alert Psych: appropriate affect, appropriate insight Objective Data Active Medications Acetaminophen (Acetaminophen 325 Mg Tablet) 650 mg PO Q6H PRN PRN Reason: Pain, Mild (Pain Scale 1-3) Atorvastatin Calcium (Atorvastatin Calcium 80 Mg Tablet) 80 mg PO BEDTIME [facility] Calcium Carbonate (Calcium Carbonate 500 Mg Tablet) 500 mg PO DAILY [facility] Last Admin: 07/06/21 08:46 Dose: 500 mg Documented by: JESI Clopidogrel Bisulfate (Clopidogrel Bisulfate 75 Mg Tablet) 75 mg PO DAILY [facility] Last Admin: 07/06/21 08:40 Dose: 75 mg Documented by: JESI Dexamethasone (Dexamethasone 4 Mg Tablet) 4 mg PO DAILY [facility] Last Admin: 07/06/21 08:40 Dose: 4 mg Documented by: JESI Diphenoxylate HCl/Atropine (Diphenoxylate/Atrop 2.5/0.025 Tablet) 1 tab PO BID PRN PRN Reason: diarrhea Enoxaparin Sodium (Enoxaparin Sodium 40 Mg/0.4 Ml Syringe) 40 mg SUBCUT DAILY [facility] Last Admin: 07/06/21 08:40 Dose: 40 mg Documented by: JESI Furosemide (Furosemide 40 Mg/4 Ml Vial) 40 mg IVPUSH BID@0900,1800 [facility]; Protocol Last Admin: 07/06/21 08:40 Dose: 40 mg Documented by: JESI Magnesium Oxide (Magnesium Oxide 400 Mg Tablet) 400 mg PO BIDPC [facility] Last Admin: 07/06/21 08:40 Dose: 400 mg Documented by: JESI Metoprolol Succinate (Metoprolol Succinate Er 50 Mg Tab.Er.24h) 50 mg PO DAILY [facility]; Protocol Last Admin: 07/06/21 08:40 Dose: 50 mg Documented by: JESI Mirtazapine (Mirtazapine 7.5 Mg Tablet) 7.5 mg PO BEDTIME [facility] Last Admin: 07/06/21 00:48 Dose: Not Given Documented by: OSMANY Non-Admin Reason: Patient Asleep Patient Own Med ( Buprenorphine Hcl [ Belbuca] 900 Mcg Film) 1 each BUCCAL Q12H [facility] Last Admin: 07/06/21 08:41 Dose: 1 each Documented by: JESI Pharmacy Consult (Consult Rx Vancomycin Dosing) 1 each MISCELLANE DAILY PRN PRN Reason: Consult order Sacubitril/Valsartan (Sacubitril/Valsartan 1 Tab Tablet) 1 tab PO BID [facility]; Protocol Last Admin: 07/06/21 09:16 Dose: 1 tab Documented by: JESI Sodium Chloride (0.9 % Sodium Chloride Flush 3 Ml Syringe) 3 ml IVFLUSH QSHIFT [facility] Last Admin: 07/06/21 07:39 Dose: Not Given Documented by: JESI Non-Admin Reason: Med Not Available Labs CBC & Chem 7: 07/06/21 05:59 07/06/21 05:59 Labs: Laboratory Results - last 24 hr 07/05/21 07/05/21 07/05/21 10:48 10:48 10:48 MCV 97.1 MCH 31.2 MCHC 32.1 RDW 14.2 Plt Count 178 D MPV Not Reportable Immature Gran % (Auto) 0.4 Neut % (Auto) 80.2 H Lymph % (Auto) 12.9 L [place] % (Auto) 5.7 Eos % (Auto) 0.6 Baso % (Auto) 0.2 Lymph # (Auto) 1.5 [place] # (Auto) 0.6 Eos # (Auto) 0.1 Baso # (Auto) 0.0 Abs Immat Gran (auto) 0.04 H Absolute Neuts (auto) 9.0 H Absolute Nucleated RBC 0.000 Nucleated RBC % (auto) 0.0 Smear Tech's Comments VERIFIED PT INR APTT D-Dimer Anion Gap 11 L Estim Creat Clear Calc 41.0 Estimated GFR 57 Random Glucose 108 Fasting Glucose Lactic Acid Calcium 8.8 D Magnesium 1.8 Troponin I High Sens B-Natriuretic Peptide Procalcitonin COVID-19 (BINU) Negative COVID-Loccit (ML4D) Com See Note 07/05/21 07/05/21 07/05/21 10:48 10:48 10:48 MCV MCH MCHC RDW Plt Count MPV Immature Gran % (Auto) Neut % (Auto) Lymph % (Auto) [place] % (Auto) Eos % (Auto) Baso % (Auto) Lymph # (Auto) [place] # (Auto) Eos # (Auto) Baso # (Auto) Abs Immat Gran (auto) Absolute Neuts (auto) Absolute Nucleated RBC Nucleated RBC % (auto) Smear Tech's Comments PT INR APTT D-Dimer 855 Anion Gap Estim Creat Clear Calc Estimated GFR Random Glucose Fasting Glucose Lactic Acid 1.7 Calcium Magnesium Troponin I High Sens 16.2 B-Natriuretic Peptide Procalcitonin COVID-19 (BINU) COVID-ClarityAd 07/05/21 07/05/21 07/05/21 10:48 10:48 14:01 MCV MCH MCHC RDW Plt Count MPV Immature Gran % (Auto) Neut % (Auto) Lymph % (Auto) [place] % (Auto) Eos % (Auto) Baso % (Auto) Lymph # (Auto) [place] # (Auto) Eos # (Auto) Baso # (Auto) Abs Immat Gran (auto) Absolute Neuts (auto) Absolute Nucleated RBC Nucleated RBC % (auto) Smear Tech's Comments PT INR APTT D-Dimer Anion Gap Estim Creat Clear Calc Estimated GFR Random Glucose Fasting Glucose Lactic Acid Calcium Magnesium Troponin I High Sens 31.8 H* D B-Natriuretic Peptide 3923 H Procalcitonin 0.09 COVID-19 (BNIU) COVID-Loccit (ML4D) Com 07/05/21 07/05/21 07/06/21 14:01 21:40 05:59 MCV 93.2 MCH 32.3 MCHC 34.6 RDW 14.0 Plt Count 199 MPV 10.3 Immature Gran % (Auto) Neut % (Auto) Lymph % (Auto) [place] % (Auto) Eos % (Auto) Baso % (Auto) Lymph # (Auto) [place] # (Auto) Eos # (Auto) Baso # (Auto) Abs Immat Gran (auto) Absolute Neuts (auto) Absolute Nucleated RBC 0.000 Nucleated RBC % (auto) 0.0 Smear Tech's Comments PT 13.0 INR 1.1 APTT 29.1 D-Dimer Anion Gap Estim Creat Clear Calc Estimated GFR Random Glucose Fasting Glucose Lactic Acid Calcium Magnesium Troponin I High Sens 32.0 H* B-Natriuretic Peptide Procalcitonin COVID-19 (BINU) COVID-19 Clin Com 07/06/21 05:59 MCV MCH MCHC RDW Plt Count MPV Immature Gran % (Auto) Neut % (Auto) Lymph % (Auto) [place] % (Auto) Eos % (Auto) Baso % (Auto) Lymph # (Auto) [place] # (Auto) Eos # (Auto) Baso # (Auto) Abs Immat Gran (auto) Absolute Neuts (auto) Absolute Nucleated RBC Nucleated RBC % (auto) Smear Tech's Comments PT INR APTT D-Dimer Anion Gap 20 Estim Creat Clear Calc 36.5 Estimated GFR 50 Random Glucose Fasting Glucose 104 H Lactic Acid Calcium 9.4 D Magnesium 1.6 Troponin I High Sens B-Natriuretic Peptide Procalcitonin COVID-19 (BINU) COVID-19 Clin Com Microbiology Microbiology Results: Microbiology 07/05/21 15:05 Blood Culture - Final Blood - Venous Assessment and Plan (1) Acute congestive heart failure: Status: Acute (2) Ischemic cardiomyopathy: Status: Acute (3) PAD (peripheral artery disease): Status: Acute Assessment and Plan: 65F presented with sob acute on chronic systolic chf (ischemic) improving continue IV lasix, is and os, monitor bmp, cardio appreciated, echo form [facility]>1 year ago, will check repeat continue plavix, lipitor toprol, entresto elevated troponins - flat, likely strain PVD plavix, statin Quality Stroke Does the patient have a stroke diagnosis?: No VTE Prior VTE?: No VTE Risk Level:: Medical - moderate - high VTE Device Contraindication: Treatment Not Indicated VTE Drug Contraindication: N/A - Med Ordered
--- NOTE | 2021-07-06 13:00 | CA_ITS ---
Transthoracic Echocardiogram Patient (Last, First, Middle): Luci Grady, Gender: Female Date of : 1955 Age: 65 Procedure Date: 07/06/2021 Procedure Type: Transthoracic Echocardiogram Location: ER Height: 152.4 cm Weight: 47.63 kg BSA: 1.42 m2 Heart Rate: bpm BP: 117 / 50 mmHg Waistline Joiner Overlock: Referring MD: Williams Galeano MD Geochemical Manager: Maxwell Le MD Symptoms: chf Study Quality: Fair ECG Rhythm: Ventriculary paced rhythm Conclusions: - 1. Severe LV systolic dysfunction with LVEF of 25-30% with regional wall motion abnormality in LAD territory 2. Mildly dilated left atrium 3. Normal cardiac valvular Doppler next 4. Normal RV systolic pressure 5. No gross pericardial effusion Findings Procedure Information Contrast agent, definity, is being given per protocol without apparent complications. Left Ventricle Normal left ventricular cavity size. There is normal left ventricular wall thickness. The left ventricular systolic function is severely decreased. The visually estimated ejection fraction is between 25-30%. Spectral Doppler is indicative of an impaired relaxation filling pattern. E/E prime ratio is between 8 and 15 consistent with indeterminate filling pressures. Wall Motion Rest Echo Findings The inferoseptal wall, the apical anterior, mid anterior, apical septum, and mid anteroseptal segments are akinetic. The apex segment is dyskinetic. All other scored wall segments showed normal motion. Right Ventricle Normal right ventricular cavity size and systolic function. There is an ICD wire seen in the right ventricle. Atria The left atrium is mildly dilated. There is no evidence of interatrial shunt. The right atrium is normal in size. Aortic Valve Normal aortic valve structure and function. There is no aortic valve stenosis. There is no aortic valve regurgitation. Mitral Valve There is mild anterior mitral leaflet thickening. There is trace mitral valve regurgitation. There is no mitral valve stenosis. Pulmonic Valve The pulmonic valve was not well visualized. Tricuspid Valve Likely normal tricuspid valve structure and function. There is mild tricuspid valve regurgitation. Normal right atrial pressure. There is no evidence of pulmonary hypertension. Great Vessels All visible segments of the aorta are normal in size. The pulmonary artery was not well visualized. Venous The inferior vena cava is normal in size and collapses greater than 50% with inspiration. Pericardium/Pleural There is no evidence of pericardial effusion. Prior Study Comparison No prior study available for comparison. Measurements 2D Linear Measurements IVSd: 0.91 0.6-0.9/0.6-1.0 cm LVIDd: 4.53 3.9-5.3/4.2-5.9 cm LVIDd Index: 3.19 2.4-3.2/2.2-3.1 cm/m2 LVIDs: 3.88 2.0-3.6 cm LVPWd: 0.94 0.7-1.1 cm Ao Root: 2.60 2.1-3.5 cm LA Diam: 3.40 2.7-3.8/3.0-4.0 cm LAIDs Index: 2.39 1.5-2.3 cm/m2 LV Mass: 173.91 67-162/88-224 g LV Mass Index: 122.47 43-95/49-115 g/m2 LVOT Diam: 2.00 3.0+(-)1.3 cm 2D Systolic Function EF 4C: 30.30 >55% EF 2C: 46.40 >55% Mitral Valve MV Pk E: 0.41 MV PK A: 0.79 MV Decel Time: 336.00 E/A: 0.50 E'Lateral: 3.92 E'Medial: 3.26 E/E' Med: 12.60 E/E' Lat: 10.50 PHT: 98.00 MVA PHT: 2.24 Decel [place]: 1.22 Aortic Valve AoV Pk Eb: 1.23 AoV Mn Eb: 0.78 AoV VTI: 0.30 AoV Pk Grad: 6.00 Aov Mn Grad: 3.00 MONSE Cont.VTI: 1.80 LVOT LVOT Pk Eb: 0.66 LVOT Mn Eb: 0.40 LVOT VTI: 0.17 LVOT Pk Grad: 2.00 LVOT Mn Grad: 1.00 LVOT Diam: 2.00 LVOT Area: 3.14 Diastolic Function MV Pk E: 0.41 MV Pk A: 0.79 E/A: 0.50 E'Medial: 3.26 E/E' Med: 12.60 E' Laterial: 3.92 E/E' Lat: 10.50 Tricuspid Valve TR Pk Eb: 2.42 TR Pk Grad: 23.00 RA Press: 3.00 RVSP: 26.00 Great Vessels Aorta Ao Root-2D: 2.60 2.0-3.7 cm Ao Asc: 3.10 2.1-3.4 cm Pulmonary Valve PV Pk Eb: 0.86 Peak PV Grad: 3.00 Updated in Other Vendor System with Status of Final Maxwell Le MD electronically signed on 07/06/2021 1:49:45 PM with status of Final
--- NOTE | 2021-07-06 14:23 | PC.NURSE ---
call for report- rn to call back
--- NOTE | 2021-07-06 14:58 | MHC.CM.PN ---
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 Home is the goal for dc and CM has initiated and will follow for dc planning.IMM addressed and original left at bedside.
--- NOTE | 2021-07-06 14:59 | MHC.CM.PN ---
PCP is Dr. Iron Jin.
[2021-07-06] MEDS: 0.9 % Sodium Chloride Flush 3 ML SYRINGE IVFLUSH ×2 (16:58→20:50)
[2021-07-06] MEDS: Mirtazapine 7.5 MG TABLET PO (20:49)
[2021-07-06] MEDS: Atorvastatin Calcium 80 MG TABLET PO (20:49)
[2021-07-07] VITALS (7 sets, daily range): BP systolic 71–120; BP diastolic 38–58; PULSE 50–68; RESP 16–18; TEMP 36.3–37.1; O2SAT 95–100
[2021-07-07 07:22] LABS: Hematocrit 32.7 % (37-47); Hemoglobin 10.8 g/dl (12.0-16.0); Mean Platelet Volume 10.2 fL (9.4-12.3); Platelet Count 222 X10*3/uL (160-400); Red Blood Count 3.48 X10*6/uL (4.20-5.50)
[2021-07-07 07:41] LABS: B Type Natriuretic Peptide 384 pg/mL (<100)
[2021-07-07 08:12] LABS: Anion Gap 21 (12-20); Blood Urea Nitrogen 45 mg/dL (9-16); Calcium 9.4 mg/dL (8.4-10.2); Carbon Dioxide 28 mmol/L (22-29); Chloride 97 mmol/L (96-108); Creatinine Clr Calc Pharmacy 22.4; Estimated Glomerular Filt Rate 29; Glucose Fasting 102 mg/dL (60-99); Magnesium 2.3 mg/dL (1.6-2.6); Potassium 5.5 mmol/L (3.3-5.1); Sodium 140 mmol/L (135-145)
--- NOTE | 2021-07-07 09:53 | HO.PM.IMPN ---
Subjective Subjective Date of Service: 07/07/21 Interval History: Interval History:?cc: sob interval history: noted improvement, feeling weak Cardiovascular Cardiovascular: Reports no additional cardiovascular complaints Respiratory Respiratory: Reports no additional respiratory complaints Physical Exam Vital Signs: Vital Signs: Last Vital Signs Temp 97.9 F 07/07/21 07:49 Pulse 68 07/07/21 07:49 Resp 18 07/07/21 07:49 BP 74/43 L 07/07/21 07:49 Pulse Ox 100 07/07/21 07:49 Body Mass Index 20.5 General: AO X 3, no acute distress Resp:? improved basilar crackles, no accessory muscles used CVS: S1,S2,RRR, murmur GI: soft, non tender, non distended Neuro:? motor grossly intact, alert Psych: appropriate affect, appropriate insight? Objective Data Active Medications Acetaminophen (Acetaminophen 325 Mg Tablet) 650 mg PO Q6H PRN PRN Reason: Pain, Mild (Pain Scale 1-3) Atorvastatin Calcium (Atorvastatin Calcium 80 Mg Tablet) 80 mg PO BEDTIME [facility] Last Admin: 07/06/21 20:49 Dose: 80 mg Documented by: MAY Calcium Carbonate (Calcium Carbonate 500 Mg Tablet) 500 mg PO DAILY [facility] Last Admin: 07/06/21 08:46 Dose: 500 mg Documented by: JESI Clopidogrel Bisulfate (Clopidogrel Bisulfate 75 Mg Tablet) 75 mg PO DAILY [facility] Last Admin: 07/06/21 08:40 Dose: 75 mg Documented by: JESI Dexamethasone (Dexamethasone 4 Mg Tablet) 4 mg PO DAILY [facility] Last Admin: 07/06/21 08:40 Dose: 4 mg Documented by: JESI Diphenoxylate HCl/Atropine (Diphenoxylate/Atrop 2.5/0.025 Tablet) 1 tab PO BID PRN PRN Reason: diarrhea Enoxaparin Sodium (Enoxaparin Sodium 40 Mg/0.4 Ml Syringe) 40 mg SUBCUT DAILY [facility] Last Admin: 07/06/21 08:40 Dose: 40 mg Documented by: JSEI Magnesium Oxide (Magnesium Oxide 400 Mg Tablet) 400 mg PO BIDPC [facility] Last Admin: 07/06/21 16:57 Dose: 400 mg Documented by: KERRY Metoprolol Succinate (Metoprolol Succinate Er 50 Mg Tab.Er.24h) 50 mg PO DAILY [facility]; Protocol Last Admin: 07/06/21 08:40 Dose: 50 mg Documented by: JESI Mirtazapine (Mirtazapine 7.5 Mg Tablet) 7.5 mg PO BEDTIME [facility] Last Admin: 07/06/21 20:49 Dose: 7.5 mg Documented by: MAY Patient Own Med ( Buprenorphine Hcl [ Belbuca] 900 Mcg Film) 1 each BUCCAL Q12H [facility] Last Admin: 07/06/21 20:50 Dose: 1 each Documented by: MAY Pharmacy Consult (Consult Rx Vancomycin Dosing) 1 each MISCELLANE DAILY PRN PRN Reason: Consult order Sacubitril/Valsartan (Sacubitril/Valsartan 1 Tab Tablet) 1 tab PO BID [facility]; Protocol Last Admin: 07/06/21 20:49 Dose: 1 tab Documented by: MAY Sodium Chloride (0.9 % Sodium Chloride Flush 3 Ml Syringe) 3 ml IVFLUSH QSHIFT [facility] Last Admin: 07/06/21 20:50 Dose: 3 ml Documented by: MAY Labs CBC & Chem 7: 07/07/21 06:38 07/07/21 06:38 Labs: Laboratory Results - last 24 hr 07/07/21 07/07/21 07/07/21 06:38 06:38 06:38 MCV 94.0 MCH 31.0 MCHC 33.0 RDW 14.0 Plt Count 222 MPV 10.2 Absolute Nucleated RBC 0.000 Nucleated RBC % (auto) 0.0 Anion Gap 21 H Estim Creat Clear Calc 22.4 Estimated GFR 29 Fasting Glucose 102 H Calcium 9.4 Magnesium 2.3 B-Natriuretic Peptide 384 H Microbiology Microbiology Results: Microbiology 07/05/21 18:36 Blood Culture - Preliminary Blood - Venous No growth after 24 hours. 07/05/21 15:05 Blood Culture - Preliminary Blood - Venous No growth after 24 hours. 07/05/21 14:51 Blood Culture - Preliminary Blood - Venous No growth after 24 hours. 07/05/21 15:05 Blood Culture - Final Blood - Venous Assessment and Plan (1) Acute congestive heart failure: Status: Acute (2) Ischemic cardiomyopathy: Status: Acute (3) PAD (peripheral artery disease): Status: Acute Assessment and Plan: 65F presented with sob acute on chronic systolic chf (ischemic) diuresed well, will hold iv lasix cardio follow up continue plavix, lipitor toprol, (holding aldactone and entresto) elevated troponins - flat, likely strain echo - ef 25-30%, LAD RWMA hyperkalemia hold aldactone KASEY hypoperfusion, hold aldactone, entresto, IV lasix monitor PVD plavix, statin Quality Stroke Does the patient have a stroke diagnosis?: No VTE Prior VTE?: No VTE Risk Level:: Medical - moderate - high VTE Device Contraindication: Treatment Not Indicated VTE Drug Contraindication: N/A - Med Ordered
[2021-07-07] MEDS: Enoxaparin Sodium 40 MG/0.4 ML SYRINGE SUBCUT (10:01)
[2021-07-07] MEDS: dexAMETHasone 4 MG TABLET PO (10:01)
[2021-07-07] MEDS: Magnesium Oxide 400 MG TABLET PO (10:02)
[2021-07-07] MEDS: Clopidogrel Bisulfate 75 MG TABLET PO (10:02)
[2021-07-07] MEDS: 0.9 % Sodium Chloride Flush 3 ML SYRINGE IVFLUSH ×2 (10:06→16:03)
--- NOTE | 2021-07-07 11:58 | PM.PNCARD ---
Subjective Subjective Date of Service: 07/07/21 Principal diagnosis: CHF Interval history: Patient present with acute pulmonary edema, diuresed and seems to have over diuresed with BNP improving from 3900 to 384 within a day, although output chart is not been well maintained. She has been diuresing well, developed hypotension and worsening creatinine. Currently shortness of breath is improved. Denies any chest pain. Denies any palpitations or lightheadedness. Review of Systems Constitutional: Reports no additional constitutional complaints Eyes: Reports no additional eye complaints Cardiovascular: Denies chest pain, Denies lightheadedness, Denies Loss of Consciousness, Denies palpitations and Reports dyspnea Respiratory: Reports no additional respiratory complaints and Reports dyspnea Gastrointestinal: Reports no additional gastrointestinal complaints Genitourinary: Reports no additional female genitourinary complaints Musculoskeletal: Reports no additional musculoskeletal complaints Skin/Breast: Reports system reviewed and no additional complaints, except as docu Reports system reviewed and no additional complaints, except as documented Psychiatric: Reports no additional psychiatric complaints Endocrine: Reports no additional endocrine complaints and Denies palpitations Hematologic/Lymphatic: Reports no additional hematologic/lymphatic complaints Allergic/Immunologic: Reports no additional allergic/immunologic complaints Physical Exam Vital Signs: Last Vital Signs Temp 97.6 F 07/07/21 11:39 Pulse 60 07/07/21 11:39 Resp 18 07/07/21 11:39 BP 71/53 L 07/07/21 11:39 Pulse Ox 97 07/07/21 11:39 Body Mass Index 20.5 Const General: cooperative, comfortable, alert and awake Nutritional Appearance: thin Orientation/consciousness: patient oriented x3 Neck Neck: Yes trachea midline, Yes supple and Yes no JVD Resp Effort & Inspection: normal respiratory effort Auscultation: crackles, no rhonchi, no wheezes and diminished lung sounds Cardio Jugular venous distension: no JVD Palpation: normal PMI Rate: regular rate Rhythm: regular rhythm Heart sounds: S1 normal heart sound present, S2 normal heart sound present, no click, no gallops, no murmurs and no rubs GI Auscultation: normal bowel sounds Skin General skin exam: no rashes or lesions noted Neuro General: patient oriented x3 and no focal motor deficits Extrem General: Yes no clubbing, cyanosis or edema Psych Appearance: grossly normal Results Labs and Meds Result diagrams: 07/07/21 06:38 07/07/21 06:38 Lab results: Laboratory Results - last 24 hr 07/07/21 07/07/21 07/07/21 06:38 06:38 06:38 WBC 11.0 H RBC 3.48 L Hgb 10.8 L Hct 32.7 L MCV 94.0 MCH 31.0 MCHC 33.0 RDW 14.0 Plt Count 222 MPV 10.2 Absolute Nucleated RBC 0.000 Nucleated RBC % (auto) 0.0 Sodium 140 Potassium 5.5 H D Chloride 97 Carbon Dioxide 28 Anion Gap 21 H BUN 45 H D Creatinine 1.77 H Estim Creat Clear Calc 22.4 Estimated GFR 29 Fasting Glucose 102 H Calcium 9.4 Magnesium 2.3 B-Natriuretic Peptide 384 H Imaging Radiologist's impression: Impressions Chest X-Ray 07/07/21 11:05 IMPRESSION: Previously identified airspace opacity centered in the right perihilar region have essentially resolved. Progress Note: A&P Assessment and plan (1) Acute congestive heart failure: Status: Acute Assessment and Plan: Patient present with acute pulmonary edema responded very quickly and may be over diuresed developed hypotension and low blood pressure. Rusty diuretic response with rising creatinine is more suggestive poor perfusion and most likely due to poor stroke volume. However raises the possibility of ischemic heart failure or possible underlying significant bilateral renal artery stenosis. Would hydrate her gently, 500 cc over the next 12 hours. Follow closely strict intake and output chart. Hold off on Entresto and metoprolol therapy for now. Monitor closely. Renal duplex was tomorrow. Once kidney functions improve and heart failure is under control may consider cardiac catheterization most likely pursue as outpatient. (2) Low blood pressure: Status: Acute Assessment and Plan: Low blood pressure due to low forward stroke volume in the setting of severe ischemic cardiomyopathy and is reduced preload with aggressive diuresis. Gentle hydration. Hold off on Entresto for now. Will monitor closely. Rule out significant renal artery stenosis Fall Risk Details Current Medications: Current Medications Acetaminophen (Acetaminophen 325 Mg Tablet) 650 mg PO Q6H PRN PRN Reason: Pain, Mild (Pain Scale 1-3) Atorvastatin Calcium (Atorvastatin Calcium 80 Mg Tablet) 80 mg PO BEDTIME [facility] Last Admin: 07/06/21 20:49 Dose: 80 mg Documented by: Calcium Carbonate (Calcium Carbonate 500 Mg Tablet) 500 mg PO DAILY [facility] Last Admin: 07/07/21 10:01 Dose: 500 mg Documented by: Clopidogrel Bisulfate (Clopidogrel Bisulfate 75 Mg Tablet) 75 mg PO DAILY [facility] Last Admin: 07/07/21 10:02 Dose: 75 mg Documented by: Dexamethasone (Dexamethasone 4 Mg Tablet) 4 mg PO DAILY [facility] Last Admin: 07/07/21 10:01 Dose: 4 mg Documented by: Diphenoxylate HCl/Atropine (Diphenoxylate/Atrop 2.5/0.025 Tablet) 1 tab PO BID PRN PRN Reason: diarrhea Enoxaparin Sodium (Enoxaparin Sodium 40 Mg/0.4 Ml Syringe) 40 mg SUBCUT DAILY [facility] Last Admin: 07/07/21 10:01 Dose: 40 mg Documented by: Sodium Chloride (Ns) 1,000 mls @ 42 mls/hr IVCONT .[id number] [facility] Stop: 07/07/21 23:44 Magnesium Oxide (Magnesium Oxide 400 Mg Tablet) 400 mg PO BIDPC [facility] Last Admin: 07/07/21 10:02 Dose: 400 mg Documented by: Metoprolol Succinate (Metoprolol Succinate Er 50 Mg Tab.Er.24h) 50 mg PO DAILY [facility]; Protocol Last Admin: 07/07/21 10:04 Dose: Not Given Documented by: Mirtazapine (Mirtazapine 7.5 Mg Tablet) 7.5 mg PO BEDTIME [facility] Last Admin: 07/06/21 20:49 Dose: 7.5 mg Documented by: Patient Own Med ( Buprenorphine Hcl [ Belbuca] 900 Mcg Film) 1 each BUCCAL Q12H [facility] Last Admin: 07/07/21 10:18 Dose: 1 each Documented by: Pharmacy Consult (Consult Rx Vancomycin Dosing) 1 each MISCELLANE DAILY PRN PRN Reason: Consult order Sodium Chloride (0.9 % Sodium Chloride Flush 3 Ml Syringe) 3 ml IVFLUSH QSHIFT [facility] Last Admin: 07/07/21 10:06 Dose: 3 ml Documented by: Time Spent With Patient Time: Total time spent is greater than 50% in coordination of care (as documented) at patient's floor/unit and/or counseling patient: Time with patient: 25 - 35 minutes Progress Note: Quality Stroke Does the patient have a stroke diagnosis?: No Procedures Date of Service Date of Service: 07/07/21
[2021-07-07] MEDS: 0.9 % Sodium Chloride 1,000 ML 42 ML IVCONT (12:43)
[2021-07-07] MEDS: Magnesium Oxide 400 MG TABLET 800 MG PO (15:43)
[2021-07-07] MEDS: Acetaminophen 325 MG TABLET 650 MG PO (15:44)
[2021-07-07] MEDS: Mirtazapine 7.5 MG TABLET PO (19:49)
[2021-07-07] MEDS: Atorvastatin Calcium 80 MG TABLET PO (21:29)
[2021-07-08 03:19] VITALS: BP 92/49; PULSE 54; RESP 20; TEMP 37.1; O2SAT 95
[2021-07-08 07:33] VITALS: BP 104/51; PULSE 53; RESP 18; TEMP 36.6; O2SAT 97
[2021-07-08 07:52] LABS: Hematocrit 29.2 % (37-47); Hemoglobin 9.8 g/dl (12.0-16.0); Mean Corpuscular HGB Conc 33.6 g/dl (31.0-35.0); Mean Corpuscular Hemoglobin 31.3 pg (27.0-33.0); Mean Corpuscular Volume 93.3 fL (80-98); Mean Platelet Volume 10.2 fL (9.4-12.3); Platelet Count 198 X10*3/uL (160-400); Red Blood Count 3.13 X10*6/uL (4.20-5.50); Red Cell Distribution Width 14.4 % (11.0-16.0); White Blood Count 8.2 X10*3/uL (4.8-10.8)
[2021-07-08 08:04] LABS: Anion Gap 12 (12-20); Blood Urea Nitrogen 59 mg/dL (9-16); Calcium 8.3 mg/dL (8.4-10.2); Carbon Dioxide 26 mmol/L (22-29); Chloride 103 mmol/L (96-108); Creatinine Clr Calc Pharmacy 25.9; Estimated Glomerular Filt Rate 34; Glucose Fasting 109 mg/dL (60-99); Potassium 4.2 mmol/L (3.3-5.1); Sodium 137 mmol/L (135-145)
--- NOTE | 2021-07-08 08:25 | P.CDIC_ITS ---
CDI Concurrent Query Documentation Clarification: PHYSICIAN'S DOCUMENTATION REQUEST Date of Query: 07/08/21 0825 Patient Name: Luci Grady Admit Date: 07/05/21 Dear Doctor, A review of the medical record indicates additional documentation may be needed. Please review below and update the documentation accordingly. Risk Factors/Clinical Indicators/Treatments XR/XR chest 2V IMPRESSION: Patchy right perihilar and upper lobe airspace opacities, new when compared to the prior examination and concerning for pneumonia. ? Trace bilateral pleural effusions. Per ED: Pneumonia Please indicate in your progress notes if you are in agreement that the above diagnosis is valid for this patient: * Yes, Pneumonia is a valid diagnosis for this patient * No, Pneumonia is a not a valid diagnosis for this patient * The diagnosis of Pneumonia is not yet confirmed but remains a suspected condition (This option is only for use at the time of discharge or during a retrospective review.) * Other (please specify) * Unable to determine Use of terms such as suspected, likely, concern for, or probable (associated with a specific diagnosis that is being evaluated, monitored, or treated as if it exists) are acceptable and can be coded in the inpatient setting, when documented at the time of discharge. Thank you, Breanne Castro RN Extension: [phone] Please use your independent medical judgment in providing your response. THIS QUERY IS PART OF THE PERMANENT MEDICAL RECORD Provider Response: Other Other Diagnosis: no pneumonia
[2021-07-08] MEDS: Clopidogrel Bisulfate 75 MG TABLET PO (08:58)
[2021-07-08] MEDS: Enoxaparin Sodium 40 MG/0.4 ML SYRINGE SUBCUT (08:58)
[2021-07-08] MEDS: Magnesium Oxide 400 MG TABLET PO ×2 (08:58→16:43)
[2021-07-08] MEDS: dexAMETHasone 4 MG TABLET PO (08:58)
[2021-07-08] MEDS: 0.9 % Sodium Chloride Flush 3 ML SYRINGE IVFLUSH ×3 (08:58→20:32)
[2021-07-08 11:07] VITALS: BP 123/63; PULSE 51; RESP 20; TEMP 36.7; O2SAT 95
--- NOTE | 2021-07-08 11:11 | P.PNIM_ITS ---
Subjective Subjective Date of Service: 07/08/21 Interval History: cc: sob interval history: overall doing better, this am sob started to return a bit Cardiovascular Cardiovascular: Reports no additional cardiovascular complaints Respiratory Respiratory: Reports no additional respiratory complaints Physical Exam Vital Signs: Vital Signs: Last Vital Signs Temp 98.0 F 07/08/21 11:07 Pulse 51 07/08/21 11:07 Resp 20 07/08/21 11:07 BP 123/63 07/08/21 11:07 Pulse Ox 95 07/08/21 11:07 Body Mass Index 20.5 General: AO X 3, no acute distress Resp:? improved basilar crackles, no accessory muscles used CVS: S1,S2,RRR, murmur GI: soft, non tender, non distended Neuro:? motor grossly intact, alert Psych: appropriate affect, appropriate insight? Objective Data Active Medications Acetaminophen (Acetaminophen 325 Mg Tablet) 650 mg PO Q6H PRN PRN Reason: Pain, Mild (Pain Scale 1-3) Last Admin: 07/07/21 15:44 Dose: 650 mg Documented by: KERRY Atorvastatin Calcium (Atorvastatin Calcium 80 Mg Tablet) 80 mg PO BEDTIME [facility] Last Admin: 07/07/21 21:29 Dose: 80 mg Documented by: ANTOINETTE Calcium Carbonate (Calcium Carbonate 500 Mg Tablet) 500 mg PO DAILY [facility] Last Admin: 07/08/21 08:58 Dose: 500 mg Documented by: KIERAN Clopidogrel Bisulfate (Clopidogrel Bisulfate 75 Mg Tablet) 75 mg PO DAILY [facility] Last Admin: 07/08/21 08:58 Dose: 75 mg Documented by: KIERAN Dexamethasone (Dexamethasone 4 Mg Tablet) 4 mg PO DAILY [facility] Last Admin: 07/08/21 08:58 Dose: 4 mg Documented by: KIERAN Diphenoxylate HCl/Atropine (Diphenoxylate/Atrop 2.5/0.025 Tablet) 1 tab PO BID PRN PRN Reason: diarrhea Enoxaparin Sodium (Enoxaparin Sodium 40 Mg/0.4 Ml Syringe) 40 mg SUBCUT DAILY [facility] Last Admin: 07/08/21 08:58 Dose: 40 mg Documented by: KIERAN Magnesium Oxide (Magnesium Oxide 400 Mg Tablet) 400 mg PO BIDPC [facility] Last Admin: 07/08/21 08:58 Dose: 400 mg Documented by: KIERAN Metoprolol Succinate (Metoprolol Succinate Er 50 Mg Tab.Er.24h) 50 mg PO DAILY [facility]; Protocol Last Admin: 07/08/21 09:06 Dose: Not Given Documented by: KIERAN Non-Admin Reason: HR 48. Dr. Froylan ordoñez Mirtazapine (Mirtazapine 7.5 Mg Tablet) 7.5 mg PO BEDTIME [facility] Last Admin: 07/07/21 19:49 Dose: 7.5 mg Documented by: ANTOINETTE Patient Own Med ( Buprenorphine Hcl [ Belbuca] 900 Mcg Film) 1 each BUCCAL Q12H [facility] Last Admin: 07/08/21 09:03 Dose: 1 each Documented by: KIERAN Pharmacy Consult (Consult Rx Vancomycin Dosing) 1 each MISCELLANE DAILY PRN PRN Reason: Consult order Sodium Chloride (0.9 % Sodium Chloride Flush 3 Ml Syringe) 3 ml IVFLUSH QSHIFT [facility] Last Admin: 07/08/21 08:58 Dose: 3 ml Documented by: KIERAN Labs CBC & Chem 7: 07/08/21 06:56 07/08/21 06:56 Labs: Laboratory Results - last 24 hr 07/08/21 07/08/21 06:56 06:56 MCV 93.3 MCH 31.3 MCHC 33.6 RDW 14.4 Plt Count 198 MPV 10.2 Absolute Nucleated RBC 0.000 Nucleated RBC % (auto) 0.0 Anion Gap 12 Estim Creat Clear Calc 25.9 Estimated GFR 34 Fasting Glucose 109 H Calcium 8.3 L D Microbiology Microbiology Results: Microbiology 07/05/21 18:36 Blood Culture - Preliminary Blood - Venous No growth after 48 hours. 07/05/21 15:05 Blood Culture - Preliminary Blood - Venous No growth after 48 hours. 07/05/21 14:51 Blood Culture - Preliminary Blood - Venous No growth after 48 hours. Assessment and Plan (1) Acute congestive heart failure: Status: Acute (2) Ischemic cardiomyopathy: Status: Acute (3) PAD (peripheral artery disease): Status: Acute Assessment and Plan: 65F presented with sob acute on chronic systolic chf (ischemic) diuresed well, holding iv lasix cardio follow up continue plavix, lipitor toprol, (holding aldactone and entresto) elevated troponins - flat, likely strain echo - ef 25-30%, LAD RWMA plan for outpatient ischemic work up hyperkalemia hold aldactone KASEY hypoperfusion, holding: aldactone, entresto, IV lasix monitor some improvement after 500cc Ns check renal doppler PVD plavix, statin Quality Stroke Does the patient have a stroke diagnosis?: No VTE Prior VTE?: No VTE Risk Level:: Medical - moderate - high VTE Device Contraindication: Treatment Not Indicated VTE Drug Contraindication: N/A - Med Ordered
--- NOTE | 2021-07-08 12:40 | MHC.CM.PN ---
per rounds pt maybe dcd tomasz negrete plans remain home, no services
[2021-07-08 15:28] VITALS: BP 129/62; PULSE 51; RESP 18; TEMP 36.8; O2SAT 98
[2021-07-08 19:11] VITALS: BP 119/58; PULSE 60; RESP 18; TEMP 36.8; O2SAT 99
[2021-07-08] MEDS: Mirtazapine 7.5 MG TABLET PO (20:32)
[2021-07-08] MEDS: Atorvastatin Calcium 80 MG TABLET PO (20:32)
[2021-07-08 23:46] VITALS: BP 136/59; PULSE 55; RESP 18; TEMP 36.2; O2SAT 99
[2021-07-09 03:22] VITALS: BP 119/55; PULSE 50; RESP 18; TEMP 36.2; O2SAT 99
[2021-07-09 06:46] LABS: Hematocrit 28.3 % (37-47); Hemoglobin 9.1 g/dl (12.0-16.0); Mean Corpuscular HGB Conc 32.2 g/dl (31.0-35.0); Mean Corpuscular Hemoglobin 30.6 pg (27.0-33.0); Mean Corpuscular Volume 95.3 fL (80-98); Mean Platelet Volume 10.1 fL (9.4-12.3); Platelet Count 175 X10*3/uL (160-400); Red Blood Count 2.97 X10*6/uL (4.20-5.50); Red Cell Distribution Width 13.9 % (11.0-16.0); White Blood Count 7.5 X10*3/uL (4.8-10.8)
[2021-07-09 06:57] VITALS: BP 90/48; PULSE 72; RESP 18; TEMP 35.5; O2SAT 99
[2021-07-09 06:59] LABS: Blood Urea Nitrogen 41 mg/dL (9-16); Carbon Dioxide 23 mmol/L (22-29); Chloride 107 mmol/L (96-108); Creatinine Clr Calc Pharmacy 32.3; Estimated Glomerular Filt Rate 44; Glucose Fasting 101 mg/dL (60-99); Sodium 138 mmol/L (135-145)
[2021-07-09 07:07] LABS: Anion Gap 12 (12-20); Calcium 8.9 mg/dL (8.4-10.2); Potassium 5.1 mmol/L (3.3-5.1)
[2021-07-09 11:01] VITALS: BP 119/55; PULSE 67
[2021-07-09] MEDS: Metoprolol Succinate ER 50 MG TAB.ER.24H PO (11:01)
[2021-07-09] MEDS: 0.9 % Sodium Chloride Flush 3 ML SYRINGE IVFLUSH (11:03)
[2021-07-09] MEDS: Magnesium Oxide 400 MG TABLET PO (11:03)
[2021-07-09] MEDS: Clopidogrel Bisulfate 75 MG TABLET PO (11:04)
[2021-07-09] MEDS: Enoxaparin Sodium 40 MG/0.4 ML SYRINGE SUBCUT (11:04)
[2021-07-09] MEDS: dexAMETHasone 4 MG TABLET PO (11:04)
[2021-07-09 11:14] VITALS: PULSE 64; RESP 20; TEMP 36.1
--- NOTE | 2021-07-09 11:17 | PM.DS ---
DS: Providers Provider Date of Service: 07/09/21 Date of admission: 07/05/21 15:18 Primary care physician: Iron Jin PA-C Consults: 07/05/21 15:15 Consult to Cardiology Routine Consulting Provider: Maxwell Le Reason for consultation: chf DS: Diagnosis Discharge Diagnosis (1) Acute congestive heart failure: Status: Acute (2) Ischemic cardiomyopathy: Status: Acute (3) PAD (peripheral artery disease): Status: Acute (4) KASEY (acute kidney injury): Status: Acute (5) Renal artery stenosis: Status: Acute DS: Summary Hospital Course Hospital Course: patient was admitted for acute on chronic systolic chf. she was given IV lasix and shortness of breath significantly improved, BNP went from 3000 to about 300. course was complicated by hypotension, KASEY. her entresto and toprol were held, she was given back 500cc of NS and hypotneison and renal function improved. will continue to hold meds until seen by cardiology as outpatient. renal doppler was done which showed right renal artery stenosis >60% should be followed up with vascular. Time Spent with Patient Time attestation: Total time spent providing and/or coordinating discharge services: Discharge coordination time: Greater than 30 minutes Quality: Stroke Does the patient have a stroke diagnosis?: No Physical Exam Vital Signs: Vital Signs: Last Vital Signs Temp 97 F 07/09/21 11:14 Pulse 64 07/09/21 11:14 Resp 20 07/09/21 11:14 BP 119/55 L 07/09/21 11:01 Pulse Ox 99 07/09/21 06:57 Body Mass Index 20.5 General: AO X 3, no acute distress Resp: CTA bilateral, no accessory muscles used CVS: S1,S2,RRR GI: soft, non tender, non distended Neuro: motor grossly intact, alert Psych: appropriate affect, appropriate insight DS: Data Data Completed and Pending Completed studies during hospitalization [Text1]: Procedures Extirpation of Matter from Left External Iliac Artery, Open Approach (06/17/21) Extirpation of Matter from Left Femoral Artery, Open Approach (06/17/21) Supplement Left External Iliac Artery with Synthetic Substitute, Open Approach (06/17/21) Supplement Left Femoral Artery with Synthetic Substitute, Open Approach (06/17/21) Labs on day of discharge: Laboratory Results - last 24 hr 07/09/21 07/09/21 06:08 06:08 WBC 7.5 RBC 2.97 L Hgb 9.1 L Hct 28.3 L MCV 95.3 MCH 30.6 MCHC 32.2 RDW 13.9 Plt Count 175 MPV 10.1 Absolute Nucleated RBC 0.000 Nucleated RBC % (auto) 0.0 Sodium 138 Potassium 5.1 D Chloride 107 Carbon Dioxide 23 Anion Gap 12 BUN 41 H Creatinine 1.23 Estim Creat Clear Calc 32.3 Estimated GFR 44 Fasting Glucose 101 H Calcium 8.9 D Preliminary micro results at discharge 07/05/21 18:36 Blood Culture - Preliminary Blood - Venous No growth after 48 hours. 07/05/21 15:05 Blood Culture - Preliminary Blood - Venous No growth after 48 hours. 07/05/21 14:51 Blood Culture - Preliminary Blood - Venous No growth after 48 hours. Discharge Plan Discharge Patient Disposition: Home, Self-Care Discharge Diagnosis: chf Referrals: Iron Jin PA-C [Primary Care Provider] - 1 Week Levi Mann MD [Physician] - 1 Week (renal artery stenosis) Discharge Medications: Continued atorvastatin 80 mg tablet 80 mg PO DAILY Qty: 90 RF: 2 clopidogrel 75 mg tablet 75 mg PO DAILY Qty: 90 RF: 2 calcium carbonate [Oyster Shell Calcium] 500 mg calcium (1,250 mg) tablet 500 mg PO DAILY 90 Days Qty: 90 RF: 1 mirtazapine 7.5 mg tablet 7.5 mg PO BEDTIME Qty: 30 RF: 4 magnesium 500 mg Tablet 15 mg PO DAILY RF: 0 alendronate 70 mg tablet 70 mg PO SAHNI RF: 0 diphenoxylate-atropine 2.5-0.025 mg tablet 1 tab PO BID PRN (Reason: diarrhea) 30 Days Qty: 60 RF: 2 naloxone 4 mg/actuation spray,non-aerosol 1 spray intranasal DIRECTED RF: 0 dexamethasone 4 mg tablet 4 mg PO DAILY 30 Days Qty: 30 RF: 0 buprenorphine HCl [Belbuca] 900 mcg film 900 mcg buccal Q12H 30 Days Qty: 60 RF: 0 oxycodone 5 mg tablet 5 mg PO DAILY 30 Days Qty: 30 RF: 0 Held metoprolol succinate 50 mg tablet extended release 24 hr 50 mg PO DAILY Qty: 90 RF: 3 Hold Instructions: Resume on 07/25/21. ignore resume date, hold until directed to restart by Dr. Le Entresto 24-26 mg tablet 1 tab PO BID Qty: 60 RF: 3 Hold Instructions: Resume on 07/25/21. ignore resume date, hold until directed to restart by Dr. Le Discharge Orders: Discharge Order (Routine); Ordered 07/09/21 Ordered By: Williams Galeano Diet: advance to usual diet Activity on Discharge: As tolerated Stand Alone Forms: Patient Portal Discharge page Care Plan Goals: recovery Health Concerns: chf, renal artery stenosis Plan of Treatment: holding entresto and metoprolol until seen by dr le, follow up with amy for new finding of renal artery stenosis Assessment: see above
--- NOTE | 2021-07-09 11:32 | MHC.CM.PN ---
pt dcd home no skilled servceis ordered by
== END 2021-07-09 13:45 | disposition home or self-care (01) | DRG 291 ==
LOC: HO.ED 15:31 → HO.EDOVER 17:19 → HO.IMC 07-06 14:07
PROVIDERS: Physician Assistant; Admitting Provider Internal Medicine; Emergency Provider Emergency Medicine; PCP Physician Assistant; Visit Provider Internal Medicine
DX: I11.0 Hypertensive heart disease with heart failure (principal); I50.23 Acute on chronic systolic (congestive) heart failure; N17.9 Acute kidney failure, unspecified; I25.5 Ischemic cardiomyopathy; I25.10 Atherosclerotic heart disease of native coronary artery without angina pectoris; I73.9 Peripheral vascular disease, unspecified; Z20.822 Contact with and (suspected) exposure to COVID-19; I95.9 Hypotension, unspecified; I70.1 Atherosclerosis of renal artery; Z95.810 Presence of automatic (implantable) cardiac defibrillator; Z87.891 Personal history of nicotine dependence; Z95.1 Presence of aortocoronary bypass graft; Z79.02 Long term (current) use of antithrombotics/antiplatelets; Z79.891 Long term (current) use of opiate analgesic; Z79.899 Other long term (current) drug therapy
CPT/HCPCS: 36415; 71045; 71046; 71275; 80048; 83605; 83735; 83880; 84145; 84484; 85025; 85027; 85379; 85610; 85730; 87040; 87635; 93005; 93306; 93975; 94640; 96365; 96367; 96375; 99212; 99285; 99291; J1650; J1940; J2543; J3370; J8540; Q9957; Q9967

== ENCOUNTER → 2021-07-11 14:37 | Outpatient (BNVA) | payer MEDICARE, MEDICAID, SELFPAY | PROVIDERS: PCP Physician Assistant; Visit Provider Family Medicine Adult Medicine | DX: Z51.81 Encounter for therapeutic drug level monitoring (principal); M47.812 Spondylosis without myelopathy or radiculopathy, cervical region; M96.1 Postlaminectomy syndrome, not elsewhere classified | CPT/HCPCS: 99212 ==

== ENCOUNTER → 2021-07-17 10:34 | Outpatient (BNVA) | payer MEDICARE, MEDICAID, SELFPAY | PROVIDERS: PCP Physician Assistant; Referring Provider Physician Assistant; Visit Provider Internal Medicine Cardiovascular Disease | DX: I50.9 Heart failure, unspecified (principal); I25.10 Atherosclerotic heart disease of native coronary artery without angina pectoris | CPT/HCPCS: 99212 ==

== ENCOUNTER 2021-07-30 15:18 | Outpatient (REF) | payer MEDICARE, MEDICAID, SELFPAY ==
[2021-07-30 15:49] LABS: Hematocrit 29.8 % (37.0-47.0); Hemoglobin 9.4 g/dl (12.0-16.0); Mean Corpuscular HGB Conc 31.5 g/dl (31.0-35.0); Mean Corpuscular Hemoglobin 30.8 pg (27.0-33.0); Mean Corpuscular Volume 97.7 fL (80.0-98.0); Mean Platelet Volume 10.2 fL (9.4-12.3); Platelet Count 156 X10*3/uL (160-400); Red Blood Count 3.05 X10*6/uL (4.20-5.50); Red Cell Distribution Width 15.3 % (11.0-16.0); White Blood Count 12.3 X10*3/uL (4.8-10.8)
[2021-07-30 15:52] LABS: INTERNATIONAL NORM RATIO 0.9 (0.9-1.1); Prothrombin Time 10.4 SEC (9.9-13.0)
[2021-07-30 16:23] LABS: Anion Gap 12 (12-20); Blood Urea Nitrogen 26 mg/dL (9-16); Calcium 9.1 mg/dL (8.4-10.2); Carbon Dioxide 23 mmol/L (22-29); Chloride 108 mmol/L (96-108); Estimated Glomerular Filt Rate 52; Glucose Random 158 mg/dL (60-115); Potassium 6.2 mmol/L (3.3-5.1); Sodium 137 mmol/L (135-145)
== END 2021-07-30 15:19 | disposition home or self-care (01) ==
LOC: HO.LAB 15:18
PROVIDERS: PCP Physician Assistant; Visit Provider Internal Medicine Cardiovascular Disease
DX: I50.9 Heart failure, unspecified (principal)
CPT/HCPCS: 36415; 80048; 85027; 85610

== ENCOUNTER 2021-08-01 14:58 | Outpatient (REF) | payer MEDICARE, MEDICAID, SELFPAY ==
[2021-08-01 15:25] LABS: Hematocrit 29.8 % (37.0-47.0); Hemoglobin 9.5 g/dl (12.0-16.0); Mean Corpuscular HGB Conc 31.9 g/dl (31.0-35.0); Mean Corpuscular Hemoglobin 31.1 pg (27.0-33.0); Mean Corpuscular Volume 97.7 fL (80.0-98.0); Mean Platelet Volume 10.3 fL (9.4-12.3); Platelet Count 174 X10*3/uL (160-400); Red Blood Count 3.05 X10*6/uL (4.20-5.50); Red Cell Distribution Width 15.4 % (11.0-16.0); White Blood Count 13.2 X10*3/uL (4.8-10.8)
[2021-08-01 15:48] LABS: Alanine Aminotransferase 23 U/L (0-31); Albumin Level 4.1 g/dL (3.5-5.0); Alkaline Phosphatase 80 U/L (39-117); Anion Gap 14 (12-20); Aspartate Amino Transferase 17 U/L (5-31); Bilirubin Total 0.6 mg/dL (0.0-1.0); Blood Urea Nitrogen 29 mg/dL (9-16); Calcium 9.2 mg/dL (8.4-10.2); Carbon Dioxide 22 mmol/L (22-29); Chloride 108 mmol/L (96-108); Cholesterol 228 mg/dL; Estimated Glomerular Filt Rate 50; Glucose Fasting 101 mg/dL (60-99); HDL Cholesterol 76 mg/dL; LDL Cholesterol Calculated 120 mg/dl; Potassium 5.8 mmol/L (3.3-5.1); Sodium 138 mmol/L (135-145); Total Protein 6.6 g/dL (6.5-8.0); Triglycerides 164 mg/dL
[2021-08-01 16:10] LABS: TSH reflex Free T4 3.03 uIU/mL (0.32-4.0)
[2021-08-01 16:28] LABS: Creatinine Urine 48.22 mg/dL; Microalbum/Creatinine Ratio Ur 22.8 ug/mg cr
== END 2021-08-01 14:59 | disposition home or self-care (01) ==
LOC: HO.LAB 14:58
PROVIDERS: PCP Physician Assistant; Visit Provider Nurse Practitioner Family
DX: E87.5 Hyperkalemia (principal); I10 Essential (primary) hypertension; Z95.1 Presence of aortocoronary bypass graft
CPT/HCPCS: 36415; 80048; 80053; 80061; 82043; 84443; 85027

== ENCOUNTER 2021-08-02 11:38 | Inpatient (IN) | payer MEDICARE, MEDICAID, SELFPAY ==
--- NOTE | ~2021-08-02 | XR_ITS ---
EXAMINATION: XR CHEST CLINICAL INFORMATION: Shortness of breath COMPARISON: July 07, 2021, July 05, 2021, and July 01, 2011 TECHNIQUE: AP portable view of the chest was obtained. FINDINGS: There are increasing interstitial markings seen bilaterally with curly B lines with the appearance of interstitial pulmonary edema. No confluent parenchymal disease identified. No pneumothorax or significant pleural effusion. Heart normal size. No evidence of pulmonary edema. Status post median sternotomy. Unipolar pacemaker in place. Status post previous surgical repair of a proximal left humeral fracture XR/XR chest 1V IMPRESSION: Findings consistent with developing interstitial edema.
--- NOTE | 2021-08-02 11:46 | ECG_ITS ---
Test Reason : SOB Blood Pressure : / mmHG Vent. Rate : 068 BPM Atrial Rate : 068 BPM P-R Int : 130 ms QRS Dur : 090 ms QT Int : 416 ms P-R-T Axes : 079 -16 122 degrees QTc Int : 442 ms Normal sinus rhythm Possible Left atrial enlargement Left axis deviation Nonspecific ST abnormality Septal leads T-wave inversion in Lateral leads Abnormal ECG When compared with ECG of 05-JUL-2021 10:39, No significant changes seen Referred By: Michelle Celis Electronically Signed By:KRISTOPHER SAMUEL MD
[2021-08-02 11:51] VITALS: BP 136/70; BP 146/56; PULSE 69; PULSE 90; RESP 24; TEMP 36.6; O2SAT 100; O2SAT 98; BMI 20.9
--- NOTE | 2021-08-02 11:59 | ED.SOB ---
HPI - SOB/Dyspnea General Chief Complaint: Dyspnea Stated Complaint: shortness of breath Time Seen by Provider: 08/02/21 11:45 History of Present Illness HPI Narrative: Patient is a 65-year-old female with a history of congestive heart failure. History of ischemic cardiomyopathy. History of bypass. Presents today with having shortness of breath very abrupt in onset started approximately 30 minutes prior. Patient had a history of similar episodes in the past. Was treated with water pills and nitro. Admitted to the hospital. Patient is scheduled for an outpatient cardiac catheterization for further delineate her pathology. Patient had labs drawn yesterday. It show elevated potassium. Patient came in for the shortness of breath and also the change in lab value. Patient had her coronavirus vaccine. Had a booster. There were done over 2 weeks ago. She did not have any acute coughing or upper respiratory symptoms she does have extreme shortness of breath that was very abrupt. Did not notice any leg swelling. No history of COPD. Related Data Home Medications Medication Instructions Recorded Confirmed alendronate 70 mg tablet 70 mg PO SAHNI 07/05/21 08/02/21 magnesium oxide 400 mg PO DAILY 08/02/21 08/02/21 Previous Rx's Medication Instructions Recorded atorvastatin 80 mg tablet 80 mg PO DAILY #90 cap 11/25/20 clopidogrel 75 mg tablet 75 mg PO DAILY #90 cap 02/27/21 calcium carbonate 500 mg calcium 500 mg PO DAILY 90 Days #90 tab 03/06/21 (1,250 mg) tablet (Oyster Shell Calcium) buprenorphine HCl 750 mcg buccal 750 mcg BUCCAL Q8H 30 Days #90 ea 07/11/21 film (Belbuca) metoprolol succinate 50 mg 25 mg PO DAILY #30 tab 07/17/21 tablet,extended release 24 hr (Toprol XL) diphenoxylate-atropine 2.5 1 tab PO BID PRN 30 Days #60 tab 07/18/21 mg-0.025 mg tablet dexamethasone 4 mg tablet 4 mg PO DAILY 30 Days #30 tab 07/19/21 mirtazapine 15 mg tablet 15 mg PO BEDTIME 30 Days #30 tab 07/23/21 oxycodone 5 mg tablet 5 mg PO DAILY 30 Days #30 tab 07/26/21 Allergies Allergy/AdvReac Type Severity Reaction Status Date / Time No Known Allergies Allergy Verified 07/23/21 15:01 [No Known Allergies*] Review of Systems Review of Systems: Positive shortness of breath very sudden onset. No leg edema. All systems reviewed otherwise negative Yes all other systems are reviewed and are negative [facility] Past Medical History Attestation statement: The following information was validated with the patient. Medical History AAA (abdominal aortic aneurysm) CAD (coronary artery disease) Cervical spondylosis CKD (chronic kidney disease) stage 3, GFR 30-59 ml/min COVID-19 vaccine series completed Failed back syndrome, lumbar Hiatal hernia History of femoral angiogram History of placement of internal cardiac defibrillator Hx of myocardial infarction Hypertension Ischemic cardiomyopathy Lumbar spondylosis Peripheral vascular disease 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 Sister Gynecologic cancer Social History Social History Household Members: Children Household Members Other:: Sebastien Pleitez Housing: House Are you a primary career development director to a significant other at home: No Do you presently have visiting nurse or other home services: No Alcohol intake: unknown Patient Tobacco Use Status: Former Tobacco user Quit Date: 09/21/16 Tobacco use type: Cigarette Years Smoked: 40 Second Hand Smoke Exposure: No Substance Use Type: Marijuana Advance Directives: No Advance Directives Information Provided: No Advance Directives Date on File: 07/06/21 service: No Current occupational status: disabled Physical Exam Vital Signs: Vital Signs: Last Vital Signs Temp 97.9 F 08/02/21 11:51 Pulse 69 08/02/21 11:51 Resp 24 H 08/02/21 11:51 BP 146/56 H 08/02/21 11:51 Pulse Ox 100 08/02/21 11:51 Oxygen Flow Rate 2 08/02/21 11:51 Body Mass Index 20.9 Appearance: Alert. Oriented X3. No acute distress. Eyes: Pupils equal, round and reactive to light. ENT: Pharynx normal. Neck: Normal inspection. Neck supple. No lymph nodes noted. No crepitus CVS: Normal heart rate and rhythm. Pulses normal. Normal S1 and S2. Respiratory: No respiratory distress. Diminished breath sounds bilaterally. No Wheezing. No rales Abdomen: Soft and nontender. No rigidity. No distention. good BS x4 Skin: Skin warm and dry. Normal skin color. Normal skin turgor. Extremities: No lower extremity edema. Neurovascular intact to all extremities. No Lacerations. No Rash Neuro: Oriented X 3. No motor deficit. No sensory deficit. Moving all extermities. No slurred speech MDM - SOB/Dyspnea MDM Narrative Medical decision making narrative: Patient's chest x-ray consistent with CHF. Consistent with patient's history with sudden onset of flash pulmonary edema. History of the same. Started on very low-dose of Lasix. Half a minute into of nitro. Symptoms seems to be improving. Patient's lactate slightly elevated. Patient does not have signs and evidence for sepsis. History and physical exam consistent with congestive heart failure. Will admit for further evaluation. Patient's EKG showed a sinus pattern heart rate was 80 MD QRS QT within normal limits there is significant T-wave inversion in V5 and V6 these are old findings. Patient's case discussed with cardiology. Agree to consult on the patient while patient is being admitted to telemetry. Case will be discussed with the hospitalist team as well. On recheck patient's symptoms seems to be improving. Differential Diagnosis Differential diagnosis: Likely acute exacerbation of chronic obstructive airways disease, congestive heart failure, pneumonia, asthma with exacerbation and pulmonary embolism Lab Data Attestation: I reviewed the patient's lab results. Result diagrams: 08/02/21 12:06 08/02/21 12:06 Labs: Lab Results 08/02/21 08/02/21 08/02/21 Range/Units 12:06 12:06 12:06 WBC 11.7 H (4.8-10.8) X10*3/uL RBC 2.83 L (4.20-5.50) X10*6/uL Hgb 8.8 L (12.0-16.0) g/dl Hct 27.9 L (37.0-47.0) % MCV 98.6 H (80.0-98.0) fL MCH 31.1 (27.0-33.0) pg MCHC 31.5 (31.0-35.0) g/dl RDW 15.4 (11.0-16.0) % Plt Count 132 L (160-400) X10*3/uL MPV 10.0 (9.4-12.3) fL Immature Gran % (Auto) 0.9 H (0.0-0.4) % Neut % (Auto) 73.7 H (45-73) % Lymph % (Auto) 21.8 (20-40) % Hardin % (Auto) 3.2 (2-11) % Eos % (Auto) 0.3 (0-4) % Baso % (Auto) 0.1 (0-2) % Lymph # (Auto) 2.6 (1.2-4.9) X10*3/uL Hardin # (Auto) 0.4 (0.1-1.2) X10*3/uL Eos # (Auto) 0.0 (0.0-0.4) X10*3/uL Baso # (Auto) 0.0 (0.0-0.2) X10*3/uL Abs Immat Gran (auto) 0.10 H (0.00-0.03) X10*3/uL Absolute Neuts (auto) 8.6 H (2.0-8.3) x10*3/uL Absolute Nucleated RBC 0.000 (0.0-0.012) X10*3/uL Nucleated RBC % (auto) 0.0 (0.0-0.2) /100WBC Sodium (135-145) mmol/L Potassium (3.3-5.1) mmol/L Chloride (96-108) mmol/L Carbon Dioxide (22-29) mmol/L Anion Gap (12-20) BUN (9-16) mg/dL Creatinine (0.5-1.4) mg/dL Estim Creat Clear Calc Estimated GFR Random Glucose (60-115) mg/dL Lactic Acid 2.1 H* (0.5-2.0) mmol/L Calcium (8.4-10.2) mg/dL Total Bilirubin (0.0-1.0) mg/dL Direct Bilirubin (0.0-0.5) mg/dL AST (5-31) U/L ALT (0-31) U/L Alkaline Phosphatase (39-117) U/L Troponin I High Sens (<3.5-17.0) ng/L Total Protein (6.5-8.0) g/dL Albumin (3.5-5.0) g/dL COVID-19 (BINU) Negative (Negative) COVID-19 Clin Com See Note 08/02/21 08/02/21 Range/Units 12:06 12:06 WBC (4.8-10.8) X10*3/uL RBC (4.20-5.50) X10*6/uL Hgb (12.0-16.0) g/dl Hct (37.0-47.0) % MCV (80.0-98.0) fL MCH (27.0-33.0) pg MCHC (31.0-35.0) g/dl RDW (11.0-16.0) % Plt Count (160-400) X10*3/uL MPV (9.4-12.3) fL Immature Gran % (Auto) (0.0-0.4) % Neut % (Auto) (45-73) % Lymph % (Auto) (20-40) % Hardin % (Auto) (2-11) % Eos % (Auto) (0-4) % Baso % (Auto) (0-2) % Lymph # (Auto) (1.2-4.9) X10*3/uL Hardin # (Auto) (0.1-1.2) X10*3/uL Eos # (Auto) (0.0-0.4) X10*3/uL Baso # (Auto) (0.0-0.2) X10*3/uL Abs Immat Gran (auto) (0.00-0.03) X10*3/uL Absolute Neuts (auto) (2.0-8.3) x10*3/uL Absolute Nucleated RBC (0.0-0.012) X10*3/uL Nucleated RBC % (auto) (0.0-0.2) /100WBC Sodium 138 (135-145) mmol/L Potassium 5.3 H (3.3-5.1) mmol/L Chloride 109 H (96-108) mmol/L Carbon Dioxide 19 L (22-29) mmol/L Anion Gap 15 (12-20) BUN 30 H (9-16) mg/dL Creatinine 0.98 (0.5-1.4) mg/dL Estim Creat Clear Calc 40.5 Estimated GFR 57 Random Glucose 87 (60-115) mg/dL Lactic Acid (0.5-2.0) mmol/L Calcium 8.7 (8.4-10.2) mg/dL Total Bilirubin 0.4 (0.0-1.0) mg/dL Direct Bilirubin 0.2 (0.0-0.5) mg/dL AST 37 H D (5-31) U/L ALT 34 H (0-31) U/L Alkaline Phosphatase 74 (39-117) U/L Troponin I High Sens 16.1 (<3.5-17.0) ng/L Total Protein 6.2 L (6.5-8.0) g/dL Albumin 3.7 (3.5-5.0) g/dL COVID-19 (BINU) (Negative) COVID-19 Clin Com Critical Care Time Critical Care Time Critical Care Time: Yes Total Critical Care Time: 40 Attestation: I have personally provided 40 minutes of critical care time exclusive of time spent on separately billable procedures. Time includes review of lab data, radiology results, discussion with consultants, and monitoring for potential decompensation. Interventions were performed as documented above Discharge Plan Discharge Clinical Impression: Congestive heart failure Patient Disposition: Admitted As Inpatient
[2021-08-02 12:13] LABS: MANUAL DIFF FLAG NO
[2021-08-02 12:16] LABS: Basophils Percent Auto 0.1 % (0-2); Eosinophils Percent Auto 0.3 % (0-4); Hematocrit 27.9 % (37.0-47.0); Hemoglobin 8.8 g/dl (12.0-16.0); Imm Gran Pct Auto 0.9 % (0.0-0.4); Lymphocytes Absolute Auto 2.6 X10*3/uL (1.2-4.9); Lymphocytes Percent Auto 21.8 % (20-40); Mean Corpuscular HGB Conc 31.5 g/dl (31.0-35.0); Mean Corpuscular Hemoglobin 31.1 pg (27.0-33.0); Mean Corpuscular Volume 98.6 fL (80.0-98.0); Monocytes Absolute Auto 0.4 X10*3/uL (0.1-1.2); Monocytes Percent Auto 3.2 % (2-11); Neutrophils Absolute Auto 8.6 x10*3/uL (2.0-8.3); Neutrophils Percent Auto 73.7 % (45-73); Platelet Count 132 X10*3/uL (160-400); Red Blood Count 2.83 X10*6/uL (4.20-5.50); Red Cell Distribution Width 15.4 % (11.0-16.0); White Blood Count 11.7 X10*3/uL (4.8-10.8)
[2021-08-02] MEDS: Furosemide 20 MG/2 ML VIAL IVPUSH (12:16)
[2021-08-02] MEDS: Nitroglycerin 2 % Oint 1 GM Packet 0.5 INCH TRANSDERMA (12:16)
[2021-08-02 12:31] LABS: COVID-19 Test Negative (Negative); IDNOW Serial# 9DD0AD1C
[2021-08-02 12:33] LABS: Alanine Aminotransferase 34 U/L (0-31); Albumin Level 3.7 g/dL (3.5-5.0); Alkaline Phosphatase 74 U/L (39-117); Anion Gap 15 (12-20); Aspartate Amino Transferase 37 U/L (5-31); Bilirubin Direct 0.2 mg/dL (0.0-0.5); Bilirubin Total 0.4 mg/dL (0.0-1.0); Blood Urea Nitrogen 30 mg/dL (9-16); Calcium 8.7 mg/dL (8.4-10.2); Carbon Dioxide 19 mmol/L (22-29); Chloride 109 mmol/L (96-108); Creatinine Clr Calc Pharmacy 40.5; Estimated Glomerular Filt Rate 57; Glucose Random 87 mg/dL (60-115); Potassium 5.3 mmol/L (3.3-5.1); Sodium 138 mmol/L (135-145); Total Protein 6.2 g/dL (6.5-8.0)
[2021-08-02 12:36] LABS: Troponin-I High Sensitivity 16.1 ng/L (<3.5-17.0)
[2021-08-02 12:37] LABS: Lactic Acid 2.1 mmol/L (0.5-2.0)
--- NOTE | 2021-08-02 12:45 | PHA.MEDREC ---
Pharmacy Consult ? Medication Reconciliation Pharmacy has completed the medication reconciliation. There are no remarkable issues for provider's attention. Patient reports its been two weeks since she take alendronate. Patient reports that here doctor told her to stop Entresto due to high potassium. Aydee Prieto, PharmD
[2021-08-02 14:12] LABS: Reflex Lactate? Lactic Acid Added
[2021-08-02 14:31] VITALS: BP 124/54; PULSE 54; RESP 18; TEMP 36.6; O2SAT 98
[2021-08-02 14:47] LABS: B Type Natriuretic Peptide 2682 pg/mL (<100)
--- NOTE | 2021-08-02 14:50 | PM.IMHP ---
History of Present Illness Date of Service: 08/02/21 Chief Complaint: Shortness of breath 65-year-old female with ischemic cardiomyopathy presented with 1 day of shortness of breath. Patient reports feeling well on day prior to presentation. At around 10:30 on day of presentation she was going up stairs and suddenly felt very short of breath. Denies any chest pain, fever, chills. Patient normally does not have any shortness of breath, does not take maintenance diuretics, maintains a low-sodium diet. In ED found to have pulmonary edema on chest x-ray, was given Lasix and noted some improvement.. Review of Systems Review of Systems: Constitutional: Denies fever, denies Chills Eyes: denies blurry vision ENT: denies sore throat CVS: denies chest pain Respiratory: dyspnea GI: no abdominal pain : denies dysuria MSK: denies neck pain Skin: denies rash Neuro: denies specific motor weakness Psych: denies suicidal ideation Endocrine: denies heat/cold intolerance Hematologic: denies easy bleeding Allergy: denies hives [facility] Medical History AAA (abdominal aortic aneurysm) CAD (coronary artery disease) Cervical spondylosis CKD (chronic kidney disease) stage 3, GFR 30-59 ml/min COVID-19 vaccine series completed Failed back syndrome, lumbar Hiatal hernia History of femoral angiogram History of placement of internal cardiac defibrillator Hx of myocardial infarction Hypertension Ischemic cardiomyopathy Lumbar spondylosis Peripheral vascular disease Family History Father Hypertension Mother No problems noted. 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) S/P CABG (coronary artery bypass graft) Social History Household Members: Children Household Members Other:: Son Maik Housing: House Are you a primary rn coronary care unit to a significant other at home: No Do you presently have visiting nurse or other home services: No Alcohol intake: unknown Patient Tobacco Use Status: Former Tobacco user Quit Date: 09/21/16 Tobacco use type: Cigarette Years Smoked: 40 Second Hand Smoke Exposure: No Substance Use Type: Marijuana Advance Directives: No Advance Directives Information Provided: No Advance Directives Date on File: 07/06/21 service: No Current occupational status: disabled Meds Allergies Allergy/AdvReac Type Severity Reaction Status Date / Time No Known Allergies Allergy Verified 07/23/21 15:01 [No Known Allergies*] Active Medications: Current Medications Atorvastatin Calcium (Atorvastatin Calcium 80 Mg Tablet) 80 mg PO DAILY [facility] Calcium Carbonate (Calcium Carbonate 500 Mg Tablet) 500 mg PO DAILY [facility] Clopidogrel Bisulfate (Clopidogrel Bisulfate 75 Mg Tablet) 75 mg PO DAILY [facility] Dexamethasone (Dexamethasone 4 Mg Tablet) 4 mg PO DAILY [facility] Diphenoxylate HCl/Atropine (Diphenoxylate/Atrop 2.5/0.025 Tablet) 1 tab PO BID PRN PRN Reason: diarrhea Metoprolol Succinate (Metoprolol Succinate Er 25 Mg Tab.Er.24h) 25 mg PO DAILY [facility]; Protocol Mirtazapine (Mirtazapine 15 Mg Tablet) 15 mg PO BEDTIME [facility] Non-Formulary Medication (Buprenorphine Hcl [Belbuca]) 750 mcg BUCCAL Q8H [facility] Oxycodone HCl (Oxycodone Hcl Immed Release 5 Mg Tablet) 5 mg PO DAILY [facility] Pharmacy Consult (Consult Rx Perform Med Rec) 1 each MISCELLANE ONCE PRN PRN Reason: Consult order Pharmacy Consult (Consult Rx Perform Med Rec) 1 each MISCELLANE ONCE PRN PRN Reason: Consult order Home Medications Medication Instructions Recorded Confirmed Last Taken Type alendronate 70 mg tablet 70 mg PO SAHNI 07/05/21 08/02/21 07/21/21 History magnesium oxide 400 mg PO DAILY 08/02/21 08/02/21 08/01/21 History Physical Exam Vital Signs and Narrative: Vital Signs: Last Vital Signs Temp 97.9 F 08/02/21 14:31 Pulse 54 08/02/21 14:31 Resp 18 08/02/21 14:31 BP 124/54 L 08/02/21 14:31 Pulse Ox 98 08/02/21 14:31 Oxygen Flow Rate 2 08/02/21 11:51 Body Mass Index 20.9 General: ill appearing HEENT: atraumatic Neck: normal to visual inspection CVS: S1, S2, RRR Resp: Crackles bilateral Chest: non tender GI: soft, non tender, non distended : no CVA tenderness Skin: no rashes Extremities: no edema Neuro: Oriented X3, grossly intact Psych: cooperative Results Labs CBC and Chem 7: 08/02/21 12:06 08/02/21 12:06 Labs: Laboratory Results - last 24 hr 08/02/21 08/02/21 08/02/21 12:06 12:06 12:06 Hgb MCV MCH MCHC RDW Plt Count MPV Immature Gran % (Auto) Neut % (Auto) Lymph % (Auto) Callahan % (Auto) Eos % (Auto) Baso % (Auto) Lymph # (Auto) Callahan # (Auto) Eos # (Auto) Baso # (Auto) Abs Immat Gran (auto) Absolute Neuts (auto) Absolute Nucleated RBC Nucleated RBC % (auto) Anion Gap Estim Creat Clear Calc Estimated GFR Random Glucose Lactic Acid 2.1 H* Calcium Total Bilirubin Direct Bilirubin AST ALT Alkaline Phosphatase Troponin I High Sens B-Natriuretic Peptide Cancelled Total Protein Albumin COVID-19 (BINU) Negative COVID-19 Clin Com See Note 08/02/21 08/02/21 08/02/21 12:06 12:06 12:06 Hgb 8.8 L MCV 98.6 H MCH 31.1 MCHC 31.5 RDW 15.4 Plt Count 132 L MPV 10.0 Immature Gran % (Auto) 0.9 H Neut % (Auto) 73.7 H Lymph % (Auto) 21.8 Callahan % (Auto) 3.2 Eos % (Auto) 0.3 Baso % (Auto) 0.1 Lymph # (Auto) 2.6 Callahan # (Auto) 0.4 Eos # (Auto) 0.0 Baso # (Auto) 0.0 Abs Immat Gran (auto) 0.10 H Absolute Neuts (auto) 8.6 H Absolute Nucleated RBC 0.000 Nucleated RBC % (auto) 0.0 Anion Gap 15 Estim Creat Clear Calc 40.5 Estimated GFR 57 Random Glucose 87 Lactic Acid Calcium 8.7 Total Bilirubin 0.4 Direct Bilirubin 0.2 AST 37 H D ALT 34 H Alkaline Phosphatase 74 Troponin I High Sens 16.1 B-Natriuretic Peptide 2682 H Total Protein 6.2 L Albumin 3.7 COVID-19 (BINU) COVID-19 Clin Com Imaging Radiologist's Impressions: Impressions Chest X-Ray 08/02/21 11:45 IMPRESSION: Findings consistent with developing interstitial edema. Assessment and Plan (1) Ischemic cardiomyopathy: Status: Acute 65F presented with sob Acute on chronic systolic CHF IV Lasix Monitor BMP closely, on last admission patient was sensitive to Lasix and course was complicated by hypotension KASEY Cardio eval Continue Toprol entresto had been on hold for hyperkalemia Continue Plavix statin Patient has scheduled elective catheterization on 08/08/2021 Peripheral vascular disease, renal artery stenosis plavix, statin Quality Stroke Does the patient have a stroke diagnosis?: No VTE Prior VTE?: No VTE Risk Level:: Medical - moderate - high VTE Device Contraindication: Treatment Not Indicated VTE Drug Contraindication: N/A - Med Ordered
[2021-08-02 15:30] LABS: ~Lactic Acid-LAB USE ONLY 1.5 mmol/L (0.5-2.0)
[2021-08-02] MEDS: Enoxaparin Sodium 40 MG/0.4 ML SYRINGE SUBCUT (15:39)
[2021-08-02] MEDS: 0.9 % Sodium Chloride Flush 3 ML SYRINGE IVFLUSH (15:40)
[2021-08-02 16:00] VITALS: BP 120/42; PULSE 48; RESP 16; TEMP 36.6; O2SAT 99
[2021-08-02 20:47] VITALS: BP 125/52; PULSE 54; RESP 18; TEMP 36.6; O2SAT 98
[2021-08-02] MEDS: Mirtazapine 15 MG TABLET PO (20:47)
[2021-08-02 22:27] VITALS: BP 161/69; PULSE 62; RESP 20; TEMP 36.2; O2SAT 98
[2021-08-03] VITALS (9 sets, daily range): BP systolic 100–153; BP diastolic 47–71; PULSE 51–73; RESP 12–20; TEMP 36.6–37.2; O2SAT 95–100
[2021-08-03 06:32] LABS: Hematocrit 27.1 % (37.0-47.0); Mean Corpuscular HGB Conc 33.2 g/dl (31.0-35.0); Mean Corpuscular Hemoglobin 31.7 pg (27.0-33.0); Mean Corpuscular Volume 95.4 fL (80.0-98.0); Mean Platelet Volume 9.8 fL (9.4-12.3); Platelet Count 135 X10*3/uL (160-400); Red Blood Count 2.84 X10*6/uL (4.20-5.50); Red Cell Distribution Width 15.1 % (11.0-16.0); White Blood Count 8.4 X10*3/uL (4.8-10.8)
[2021-08-03 06:59] LABS: Anion Gap 14 (12-20); Blood Urea Nitrogen 29 mg/dL (9-16); Calcium 8.6 mg/dL (8.4-10.2); Carbon Dioxide 24 mmol/L (22-29); Chloride 107 mmol/L (96-108); Creatinine Clr Calc Pharmacy 39.4; Estimated Glomerular Filt Rate 55; Glucose Fasting 74 mg/dL (60-99); Magnesium 1.8 mg/dL (1.6-2.6); Potassium 4.5 mmol/L (3.3-5.1); Sodium 140 mmol/L (135-145)
--- NOTE | 2021-08-03 08:51 | MHC.CM.PN ---
Met with Patient at bedside and addressed IMM with her, providing her with the original and placing a copy on the chart.Patient lives in an apartment with one of her Sons (Son/Rober is the HCP). Patient does not use O2 at home and her goal is to return home/no services, as before. CM has initiated and will follow for dc planning. PCP is Dr. Iron Jin.
[2021-08-03] MEDS: oxyCODONE HCl Immed Release 5 MG TABLET PO (10:17)
[2021-08-03] MEDS: dexAMETHasone 2 MG TABLET PO (10:18)
[2021-08-03] MEDS: Atorvastatin Calcium 80 MG TABLET PO (10:18)
[2021-08-03] MEDS: Metoprolol Succinate ER 25 MG TAB.ER.24H PO (10:19)
[2021-08-03] MEDS: Clopidogrel Bisulfate 75 MG TABLET PO (10:19)
[2021-08-03] MEDS: Furosemide 20 MG/2 ML VIAL IVPUSH (10:22)
[2021-08-03] MEDS: 0.9 % Sodium Chloride Flush 3 ML SYRINGE IVFLUSH ×3 (10:24→20:59)
--- NOTE | 2021-08-03 10:47 | P.PNIM_ITS ---
Subjective Subjective Date of Service: 08/03/21 Interval History: cc: sob interval history: sob improved Cardiovascular Cardiovascular: Reports no additional cardiovascular complaints Gastrointestinal Gastrointestinal: Reports no additional gastrointestinal complaints Physical Exam Vital Signs: Vital Signs: Last Vital Signs Temp 98.2 F 08/03/21 08:00 Pulse 70 08/03/21 10:19 Resp 16 08/03/21 08:00 BP 118/57 L 08/03/21 10:19 Pulse Ox 99 08/03/21 08:00 Oxygen Flow Rate 2 08/02/21 11:51 Body Mass Index 20.9 General: AO X 3, no acute distress Resp: Crackles at bases bilateral, no accessory muscles used CVS: S1,S2,RRR GI: soft, non tender, non distended Neuro: motor grossly intact, alert Psych: appropriate affect, appropriate insight Objective Data Active Medications Atorvastatin Calcium (Atorvastatin Calcium 80 Mg Tablet) 80 mg PO DAILY ON LICENSE OF [facility] Last Admin: 08/03/21 10:18 Dose: 80 mg Documented by: AIRAM Calcium Carbonate (Calcium Carbonate 500 Mg Tablet) 500 mg PO DAILY ON LICENSE OF [facility] Last Admin: 08/03/21 10:18 Dose: 500 mg Documented by: AIRAM Clopidogrel Bisulfate (Clopidogrel Bisulfate 75 Mg Tablet) 75 mg PO DAILY ON LICENSE OF [facility] Last Admin: 08/03/21 10:19 Dose: 75 mg Documented by: AIRAM Dexamethasone (Dexamethasone 2 Mg Tablet) 2 mg PO DAILY ON LICENSE OF [facility] Last Admin: 08/03/21 10:18 Dose: 2 mg Documented by: AIRAM Diphenoxylate HCl/Atropine (Diphenoxylate/Atrop 2.5/0.025 Tablet) 1 tab PO BID PRN PRN Reason: diarrhea Enoxaparin Sodium (Enoxaparin Sodium 40 Mg/0.4 Ml Syringe) 40 mg SUBCUT Q24H ON LICENSE OF [facility] Last Admin: 08/02/21 15:39 Dose: 40 mg Documented by: NAS Furosemide (Furosemide 20 Mg/2 Ml Vial) 20 mg IVPUSH BID@0900,1800 ON LICENSE OF [facility]; Protocol Last Admin: 08/03/21 10:22 Dose: 20 mg Documented by: AIRAM Metoprolol Succinate (Metoprolol Succinate Er 25 Mg Tab.Er.24h) 25 mg PO DAILY ON LICENSE OF [facility]; Protocol Last Admin: 08/03/21 10:19 Dose: 25 mg Documented by: AIRAM Mirtazapine (Mirtazapine 15 Mg Tablet) 15 mg PO BEDTIME ON LICENSE OF [facility] Last Admin: 08/02/21 20:47 Dose: 15 mg Documented by: NAS Patient Own Med ( Belbuca 750 Mcg Film ) 1 each BUCCAL TID@0800,1400,2000 ON LICENSE OF [facility] Last Admin: 08/03/21 10:23 Dose: 1 each Documented by: AIRAM Oxycodone HCl (Oxycodone Hcl Immed Release 5 Mg Tablet) 5 mg PO DAILY ON LICENSE OF [facility] Last Admin: 08/03/21 10:17 Dose: 5 mg Documented by: AIRAM Pharmacy Consult (Consult Rx Perform Med Rec) 1 each MISCELLANE ONCE PRN PRN Reason: Consult order Pharmacy Consult (Consult Rx Perform Med Rec) 1 each MISCELLANE ONCE PRN PRN Reason: Consult order Sodium Chloride (0.9 % Sodium Chloride Flush 3 Ml Syringe) 3 ml IVFLUSH QSHIFT ON LICENSE OF [facility] Last Admin: 08/03/21 10:24 Dose: 3 ml Documented by: AIRAM Labs CBC & Chem 7: 08/03/21 06:04 08/03/21 06:04 Labs: Laboratory Results - last 24 hr 08/02/21 08/02/21 08/02/21 12:06 12:06 12:06 MCV MCH MCHC RDW Plt Count MPV Immature Gran % (Auto) Neut % (Auto) Lymph % (Auto) [place] % (Auto) Eos % (Auto) Baso % (Auto) Lymph # (Auto) [place] # (Auto) Eos # (Auto) Baso # (Auto) Abs Immat Gran (auto) Absolute Neuts (auto) Absolute Nucleated RBC Nucleated RBC % (auto) Anion Gap Estim Creat Clear Calc Estimated GFR Random Glucose Fasting Glucose Lactic Acid 2.1 H* Lactic Acid Fup @ 2Hr Calcium Magnesium Total Bilirubin Direct Bilirubin AST ALT Alkaline Phosphatase Troponin I High Sens B-Natriuretic Peptide Cancelled Total Protein Albumin COVID-19 (BINU) Negative COVID-19 Clin Com See Note 08/02/21 08/02/21 08/02/21 12:06 12:06 12:06 MCV 98.6 H MCH 31.1 MCHC 31.5 RDW 15.4 Plt Count 132 L MPV 10.0 Immature Gran % (Auto) 0.9 H Neut % (Auto) 73.7 H Lymph % (Auto) 21.8 [place] % (Auto) 3.2 Eos % (Auto) 0.3 Baso % (Auto) 0.1 Lymph # (Auto) 2.6 [place] # (Auto) 0.4 Eos # (Auto) 0.0 Baso # (Auto) 0.0 Abs Immat Gran (auto) 0.10 H Absolute Neuts (auto) 8.6 H Absolute Nucleated RBC 0.000 Nucleated RBC % (auto) 0.0 Anion Gap 15 Estim Creat Clear Calc 40.5 Estimated GFR 57 Random Glucose 87 Fasting Glucose Lactic Acid Lactic Acid Fup @ 2Hr Calcium 8.7 Magnesium Total Bilirubin 0.4 Direct Bilirubin 0.2 AST 37 H D ALT 34 H Alkaline Phosphatase 74 Troponin I High Sens 16.1 B-Natriuretic Peptide 2682 H Total Protein 6.2 L Albumin 3.7 COVID-19 (BINU) COVID-19 Share0 08/02/21 08/03/21 08/03/21 15:06 06:04 06:04 MCV 95.4 MCH 31.7 MCHC 33.2 RDW 15.1 Plt Count 135 L MPV 9.8 Immature Gran % (Auto) Neut % (Auto) Lymph % (Auto) [place] % (Auto) Eos % (Auto) Baso % (Auto) Lymph # (Auto) [place] # (Auto) Eos # (Auto) Baso # (Auto) Abs Immat Gran (auto) Absolute Neuts (auto) Absolute Nucleated RBC 0.000 Nucleated RBC % (auto) 0.0 Anion Gap 14 Estim Creat Clear Calc 39.4 Estimated GFR 55 Random Glucose Fasting Glucose 74 Lactic Acid Lactic Acid Fup @ 2Hr 1.5 Calcium 8.6 Magnesium 1.8 Total Bilirubin Direct Bilirubin AST ALT Alkaline Phosphatase Troponin I High Sens B-Natriuretic Peptide Total Protein Albumin COVID-19 (BINU) COVID-19 [employer] Com Assessment and Plan (1) Acute congestive heart failure: Status: Acute (2) Ischemic cardiomyopathy: Status: Acute (3) PAD (peripheral artery disease): Status: Acute Assessment and Plan: 65F presented with sob acute on chronic systolic chf (ischemic) continue IV lasix cardio follow up monitor electrolytes catheterization planned electively on 08/08/21 continue toprol, plavix, statin back pain has been on decadron for about 6 weeks, will wean off PVD/RTEVA continue plavix, statin Quality Stroke Does the patient have a stroke diagnosis?: No VTE Prior VTE?: No VTE Risk Level:: Medical - moderate - high VTE Device Contraindication: Treatment Not Indicated VTE Drug Contraindication: N/A - Med Ordered
--- NOTE | 2021-08-03 10:58 | PM.CNCAR ---
History of Present Illness History of Present Illness Date of Service: 08/03/21 Chief complaint: CHF Narrative: This is a cardiology consultation regarding congestive heart failure. Yesterday, she was climbing stairs to go to the bathroom which is on the next level and in that process she became very short of breath and presented to the ER with a diagnosis of congestive heart failure. She has been diuresing today she is back to her normal self. Otherwise, she has a history of coronary disease and underwent bypass surgery about 5-6 years ago. It seems that she was seeing summary possibly from [facility] but she cannot recall the names accurately. She believes the positions frequently changed and hence she was upset and now would like to follow-up with Dr. Le. She was actually seen by him few days ago as an inpatient consult for congestive heart failure. She was then set up for outpatient cardiac catheterization for next week to assess for ischemic component. In the interim, she presents with another episode of heart failure. Today she states that she is much better than how she came in and essentially back to normal self. Review of Systems Review of Systems: Yes all other systems are reviewed and are negative Cardiovascular: Cardiovascular: Reports as per HPI, Reports no additional cardiovascular complaints, Denies acrocyanosis, Denies cool extremities, Denies painful fingertips, Denies chest pain, Denies chest pain at rest, Denies diaphoresis, Denies syncope, Denies irregular heart rhythm, Denies claudication, Denies leg edema, Denies lightheadedness, Denies palpitations and Reports dyspnea Respiratory: Respiratory: Reports dyspnea Neurologic: Denies syncope Endocrine: Endocrine: Denies palpitations [facility] Past Medical History Medical History AAA (abdominal aortic aneurysm) CAD (coronary artery disease) Cervical spondylosis CKD (chronic kidney disease) stage 3, GFR 30-59 ml/min COVID-19 vaccine series completed Failed back syndrome, lumbar Hiatal hernia History of femoral angiogram History of placement of internal cardiac defibrillator Hx of myocardial infarction Hypertension Ischemic cardiomyopathy Lumbar spondylosis Peripheral vascular disease Family History Family History Father Hypertension Mother No problems noted. 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) S/P CABG (coronary artery bypass graft) Social History Social History Household Members: Family Household Members Other:: Son Housing: House Are you a primary child daycare worker to a significant other at home: No Do you presently have visiting nurse or other home services: No Alcohol intake: unknown Patient Tobacco Use Status: Former Tobacco user Quit Date: 09/21/16 Tobacco use type: Cigarette Years Smoked: 40 Second Hand Smoke Exposure: No Use of substances other than those prescribed or required for medical reasons: Yes Substance Use Type: Marijuana Substance Use Frequency: Occasionally Have you been hit, kicked, punched, or otherwise hurt by someone within the past year? If so, by whom?: No Do you feel safe in your current relationship?: No Current Relationship Is there a partner from a previous relationship who is making you feel unsafe now?: No Are you made to feel afraid or neglected: No Advance Directives: No Advance Directives Information Provided: No Advance Directives Date on File: 07/06/21 Do you have thoughts of harming others: None Do you have a plan to hurt others: No Plan Recently lost weight without trying: No Nutrition Risks: No Nutritional Risk Patient : No : No Poor oral hygiene: No service: No Current occupational status: disabled Meds Allergies Allergy/AdvReac Type Severity Reaction Status Date / Time No Known Allergies Allergy Verified 07/23/21 15:01 [No Known Allergies*] Active Medications: Current Medications Atorvastatin Calcium (Atorvastatin Calcium 80 Mg Tablet) 80 mg PO DAILY [facility] Last Admin: 08/03/21 10:18 Dose: 80 mg Documented by: Calcium Carbonate (Calcium Carbonate 500 Mg Tablet) 500 mg PO DAILY [facility] Last Admin: 08/03/21 10:18 Dose: 500 mg Documented by: Clopidogrel Bisulfate (Clopidogrel Bisulfate 75 Mg Tablet) 75 mg PO DAILY [facility] Last Admin: 08/03/21 10:19 Dose: 75 mg Documented by: Dexamethasone (Dexamethasone 2 Mg Tablet) 2 mg PO DAILY [facility] Last Admin: 08/03/21 10:18 Dose: 2 mg Documented by: Diphenoxylate HCl/Atropine (Diphenoxylate/Atrop 2.5/0.025 Tablet) 1 tab PO BID PRN PRN Reason: diarrhea Enoxaparin Sodium (Enoxaparin Sodium 40 Mg/0.4 Ml Syringe) 40 mg SUBCUT Q24H [facility] Last Admin: 08/02/21 15:39 Dose: 40 mg Documented by: Furosemide (Furosemide 20 Mg/2 Ml Vial) 20 mg IVPUSH BID@0900,1800 [facility]; Protocol Last Admin: 08/03/21 10:22 Dose: 20 mg Documented by: Metoprolol Succinate (Metoprolol Succinate Er 25 Mg Tab.Er.24h) 25 mg PO DAILY [facility]; Protocol Last Admin: 08/03/21 10:19 Dose: 25 mg Documented by: Mirtazapine (Mirtazapine 15 Mg Tablet) 15 mg PO BEDTIME [facility] Last Admin: 08/02/21 20:47 Dose: 15 mg Documented by: Patient Own Med ( Belbuca 750 Mcg Film ) 1 each BUCCAL TID@0800,1400,2000 [facility] Last Admin: 08/03/21 10:23 Dose: 1 each Documented by: Oxycodone HCl (Oxycodone Hcl Immed Release 5 Mg Tablet) 5 mg PO DAILY [facility] Last Admin: 08/03/21 10:17 Dose: 5 mg Documented by: Pharmacy Consult (Consult Rx Perform Med Rec) 1 each MISCELLANE ONCE PRN PRN Reason: Consult order Pharmacy Consult (Consult Rx Perform Med Rec) 1 each MISCELLANE ONCE PRN PRN Reason: Consult order Sodium Chloride (0.9 % Sodium Chloride Flush 3 Ml Syringe) 3 ml IVFLUSH QSHIFT [facility] Last Admin: 08/03/21 10:24 Dose: 3 ml Documented by: Home Medications Medication Instructions Recorded Confirmed Last Taken Type alendronate 70 mg tablet 70 mg PO SAHNI 07/05/21 08/02/21 07/21/21 History magnesium oxide 400 mg PO DAILY 08/02/21 08/02/21 08/01/21 History Physical Exam Vital Signs: Vital Signs: Last Vital Signs Temp 98.2 F 08/03/21 08:00 Pulse 70 08/03/21 10:19 Resp 16 08/03/21 08:00 BP 118/57 L 08/03/21 10:19 Pulse Ox 99 08/03/21 08:00 Oxygen Flow Rate 2 08/02/21 11:51 Body Mass Index 20.9 Const: General: cooperative and no acute distress HENMT: Other: Unremarkable Neck: Neck: Yes normal visual inspection Chest: Chest palpation & inspection: normal inspection of the chest Resp: Auscultation: clear to auscultation bilaterally, no crackles and no wheezes Cardio: Jugular venous distension: no JVD Palpation: normal PMI Heart sounds: S1 normal heart sound present, S2 normal heart sound present, no gallops, no murmurs and no rubs GI: Palpation (GI): Soft to palpation Back/Spine/Pelvis: Other: unremarkable Skin: General skin exam: no rashes or lesions noted Neuro: Cranial nerves: Yes Other cranial nerve findings present Extrem: General: Yes no clubbing, cyanosis or edema Psych: Mental Status: other Objective Labs and Meds Result diagrams: 08/03/21 06:04 08/03/21 06:04 Lab results: Laboratory Results - last 24 hr 08/02/21 08/02/21 08/02/21 12:06 12:06 12:06 WBC RBC Hgb Hct MCV MCH MCHC RDW Plt Count MPV Immature Gran % (Auto) Neut % (Auto) Lymph % (Auto) [place] % (Auto) Eos % (Auto) Baso % (Auto) Lymph # (Auto) [place] # (Auto) Eos # (Auto) Baso # (Auto) Abs Immat Gran (auto) Absolute Neuts (auto) Absolute Nucleated RBC Nucleated RBC % (auto) Sodium Potassium Chloride Carbon Dioxide Anion Gap BUN Creatinine Estim Creat Clear Calc Estimated GFR Random Glucose Fasting Glucose Lactic Acid 2.1 H* Lactic Acid Fup @ 2Hr Calcium Magnesium Total Bilirubin Direct Bilirubin AST ALT Alkaline Phosphatase Troponin I High Sens B-Natriuretic Peptide Cancelled Total Protein Albumin COVID-19 (BINU) Negative COVID-19 Clin Com See Note 08/02/21 08/02/21 08/02/21 12:06 12:06 12:06 WBC 11.7 H RBC 2.83 L Hgb 8.8 L Hct 27.9 L MCV 98.6 H MCH 31.1 MCHC 31.5 RDW 15.4 Plt Count 132 L MPV 10.0 Immature Gran % (Auto) 0.9 H Neut % (Auto) 73.7 H Lymph % (Auto) 21.8 [place] % (Auto) 3.2 Eos % (Auto) 0.3 Baso % (Auto) 0.1 Lymph # (Auto) 2.6 [place] # (Auto) 0.4 Eos # (Auto) 0.0 Baso # (Auto) 0.0 Abs Immat Gran (auto) 0.10 H Absolute Neuts (auto) 8.6 H Absolute Nucleated RBC 0.000 Nucleated RBC % (auto) 0.0 Sodium 138 Potassium 5.3 H Chloride 109 H Carbon Dioxide 19 L Anion Gap 15 BUN 30 H Creatinine 0.98 Estim Creat Clear Calc 40.5 Estimated GFR 57 Random Glucose 87 Fasting Glucose Lactic Acid Lactic Acid Fup @ 2Hr Calcium 8.7 Magnesium Total Bilirubin 0.4 Direct Bilirubin 0.2 AST 37 H D ALT 34 H Alkaline Phosphatase 74 Troponin I High Sens 16.1 B-Natriuretic Peptide 2682 H Total Protein 6.2 L Albumin 3.7 COVID-19 (BINU) COVID-19 [employer] 08/02/21 08/03/21 08/03/21 15:06 06:04 06:04 WBC 8.4 RBC 2.84 L Hgb 9.0 L Hct 27.1 L MCV 95.4 MCH 31.7 MCHC 33.2 RDW 15.1 Plt Count 135 L MPV 9.8 Immature Gran % (Auto) Neut % (Auto) Lymph % (Auto) [place] % (Auto) Eos % (Auto) Baso % (Auto) Lymph # (Auto) [place] # (Auto) Eos # (Auto) Baso # (Auto) Abs Immat Gran (auto) Absolute Neuts (auto) Absolute Nucleated RBC 0.000 Nucleated RBC % (auto) 0.0 Sodium 140 Potassium 4.5 Chloride 107 Carbon Dioxide 24 Anion Gap 14 BUN 29 H Creatinine 1.01 Estim Creat Clear Calc 39.4 Estimated GFR 55 Random Glucose Fasting Glucose 74 Lactic Acid Lactic Acid Fup @ 2Hr 1.5 Calcium 8.6 Magnesium 1.8 Total Bilirubin Direct Bilirubin AST ALT Alkaline Phosphatase Troponin I High Sens B-Natriuretic Peptide Total Protein Albumin COVID-19 (BINU) COVID-19 [employer] Com ECG Interpretation: EKG with sinus rhythm at 68/Min with left axis deviation; LVH/repolarization changes; normal IA/QTc, Imaging Radiologist's impression: Impressions Chest X-Ray 08/02/21 11:45 IMPRESSION: Findings consistent with developing interstitial edema. Assessment and Plan (1) Acute on chronic systolic (congestive) heart failure: Status: Acute (2) Atherosclerotic cardiovascular disease: Status: Acute (3) Ischemic cardiomyopathy: Status: Acute (4) Renal artery stenosis: Status: Acute In the recent echocardiogram, LVEF 25-30% with reported wall motion abnormality in the LAD territory. In the current labs, slight anemia with a hemoglobin of 9 but that seems to be around her previous values as well. Potassium is 4.5 but recently, up to 6.2 possibly from Entresto use. Creatinine is 1 but recently as much as 1.77 suspected to be over-diuresis but subsequently normalized. Cardiac BNP is 2 682. On the initial presentation last month, it was 3923 but then within a day it came down to 384. Chest x-ray reported to have interstitial edema. In recent renal ultrasound, elevated velocity on the right side suggestive of renal artery stenosis but nothing significant on the left side. Overall, ischemic cardiomyopathy with prior bypass surgery with recurrent heart failure admissions -2 in 1 month. Even though she has hypertension, I do not see any markedly high blood pressures to suggest hypertensive emergency. The presenting blood pressure today was 170/80 mm Hg. There has been a plan for a diagnostic cardiac catheterization schedule for next and we will try to move that forward to Thursday or Thursday pending availability. Otherwise, with regard to renal artery stenosis detected on US last admission, she already sees for AAA, PVD; will need FU. Procedures Date of Service Date of Service: 08/03/21
[2021-08-03] MEDS: Enoxaparin Sodium 40 MG/0.4 ML SYRINGE SUBCUT (14:39)
[2021-08-03] MEDS: Mirtazapine 15 MG TABLET PO (20:58)
[2021-08-04 07:12] LABS: Hematocrit 30.7 % (37.0-47.0); Hemoglobin 10.1 g/dl (12.0-16.0); Mean Corpuscular HGB Conc 32.9 g/dl (31.0-35.0); Mean Corpuscular Hemoglobin 31.2 pg (27.0-33.0); Mean Corpuscular Volume 94.8 fL (80.0-98.0); Mean Platelet Volume 10.2 fL (9.4-12.3); Platelet Count 165 X10*3/uL (160-400); Red Blood Count 3.24 X10*6/uL (4.20-5.50); Red Cell Distribution Width 14.9 % (11.0-16.0); White Blood Count 8.6 X10*3/uL (4.8-10.8)
[2021-08-04 08:00] VITALS: BP 129/59; PULSE 61; RESP 18; TEMP 37.4; O2SAT 99
[2021-08-04 08:22] LABS: B Type Natriuretic Peptide 505 pg/mL (<100)
[2021-08-04 08:57] LABS: Alanine Aminotransferase 28 U/L (0-31); Albumin Level 3.9 g/dL (3.5-5.0); Alkaline Phosphatase 91 U/L (39-117); Anion Gap 13 (12-20); Aspartate Amino Transferase 16 U/L (5-31); Bilirubin Direct 0.2 mg/dL (0.0-0.5); Bilirubin Total 0.5 mg/dL (0.0-1.0); Blood Urea Nitrogen 32 mg/dL (9-16); Calcium 9.1 mg/dL (8.4-10.2); Carbon Dioxide 29 mmol/L (22-29); Chloride 101 mmol/L (96-108); Creatinine Clr Calc Pharmacy 47.3; Estimated Glomerular Filt Rate > 60; Glucose Fasting 102 mg/dL (60-99); Magnesium 1.9 mg/dL (1.6-2.6); Potassium 4.6 mmol/L (3.3-5.1); Sodium 138 mmol/L (135-145); Total Protein 6.4 g/dL (6.5-8.0)
[2021-08-04 09:05] VITALS: BP 129/59; PULSE 61
[2021-08-04] MEDS: Metoprolol Succinate ER 25 MG TAB.ER.24H PO (09:05)
[2021-08-04] MEDS: Furosemide 20 MG TABLET PO (09:06)
[2021-08-04] MEDS: Clopidogrel Bisulfate 75 MG TABLET PO (09:06)
[2021-08-04] MEDS: dexAMETHasone 2 MG TABLET PO (09:06)
[2021-08-04] MEDS: oxyCODONE HCl Immed Release 5 MG TABLET PO (09:06)
[2021-08-04] MEDS: 0.9 % Sodium Chloride Flush 3 ML SYRINGE IVFLUSH (09:07)
[2021-08-04] MEDS: Atorvastatin Calcium 80 MG TABLET PO (09:07)
--- NOTE | 2021-08-04 10:59 | P.DS_ITS ---
DS: Providers Provider Date of Service: 08/04/21 Date of admission: 08/02/21 14:49 Primary care physician: Iron Jin PA-C Consults: 08/02/21 14:48 Consult to Cardiology Routine Consulting Provider: Garcia Muñiz Reason for consultation: chf DS: Diagnosis Discharge Diagnosis (1) Acute on chronic systolic (congestive) heart failure: Status: Acute (2) Atherosclerotic cardiovascular disease: Status: Acute (3) Ischemic cardiomyopathy: Status: Acute (4) Renal artery stenosis: Status: Acute DS: Summary Hospital Course Hospital Course: patient was admitted for acute on chronic ischemic systolic chf. she was given IV lasix and diuresed well, her symptoms improved quickly. patient was seen by cardiology, she had an elective catheterization planned for 08/08, however, given recurrent decompensation decision was made to transfer for cardiac cath prior to discharge. of note, patient has been on decadron for the past 6 weeks for back pain, this should be weaned off. Time Spent with Patient Time attestation: Total time spent providing and/or coordinating discharge services: Discharge coordination time: Greater than 30 minutes Quality: Stroke Does the patient have a stroke diagnosis?: No Physical Exam Vital Signs: Vital Signs: Last Vital Signs Temp 99.3 F 08/04/21 08:00 Pulse 61 08/04/21 09:05 Resp 18 08/04/21 08:00 BP 129/59 L 08/04/21 09:05 Pulse Ox 99 08/04/21 08:00 Oxygen Flow Rate 2 08/02/21 11:51 Body Mass Index 20.9 General: AO X 3, no acute distress Resp: CTA bilateral, no accessory muscles used CVS: S1,S2,RRR GI: soft, non tender, non distended Neuro: motor grossly intact, alert Psych: appropriate affect, appropriate insight DS: Data Data Completed and Pending Completed studies during hospitalization [Text1]: Procedures Extirpation of Matter from Left External Iliac Artery, Open Approach (06/17/21) Extirpation of Matter from Left Femoral Artery, Open Approach (06/17/21) Supplement Left External Iliac Artery with Synthetic Substitute, Open Approach (06/17/21) Supplement Left Femoral Artery with Synthetic Substitute, Open Approach (06/17/21) Labs on day of discharge: Laboratory Results - last 24 hr 1108/04/21 08/04/21 06:13 06:13 06:13 WBC 8.6 RBC 3.24 L Hgb 10.1 L Hct 30.7 L MCV 94.8 MCH 31.2 MCHC 32.9 RDW 14.9 Plt Count 165 MPV 10.2 Absolute Nucleated RBC 0.000 Nucleated RBC % (auto) 0.0 Sodium 138 Potassium 4.6 Chloride 101 Carbon Dioxide 29 Anion Gap 13 BUN 32 H Creatinine 0.84 Estim Creat Clear Calc 47.3 Estimated GFR > 60 Fasting Glucose 102 H Calcium 9.1 Magnesium 1.9 Total Bilirubin 0.5 Direct Bilirubin 0.2 AST 16 D ALT 28 Alkaline Phosphatase 91 D B-Natriuretic Peptide 505 H Total Protein 6.4 L Albumin 3.9 Preliminary micro results at discharge 08/02/21 15:06 Blood Culture - Preliminary Blood - Venous No growth after 24 hours. 08/02/21 12:06 Blood Culture - Preliminary Blood - Venous No growth after 24 hours. Discharge Plan Discharge Patient Disposition: Xfer [facility] Discharge Diagnosis: chf, cad Referrals: Iron Jin PA-C [Primary Care Provider] - 1 Week Discharge Medications: New furosemide 20 mg Tablet 20 mg PO DAILY Qty: 0 RF: 0 Continued atorvastatin 80 mg tablet 80 mg PO DAILY Qty: 90 RF: 2 clopidogrel 75 mg tablet 75 mg PO DAILY Qty: 90 RF: 2 calcium carbonate [Oyster Shell Calcium] 500 mg calcium (1,250 mg) tablet 500 mg PO DAILY 90 Days Qty: 90 RF: 1 diphenoxylate-atropine 2.5-0.025 mg tablet 1 tab PO BID PRN (Reason: diarrhea) 30 Days Qty: 60 RF: 2 dexamethasone 4 mg tablet 4 mg PO DAILY 30 Days Qty: 30 RF: 0 oxycodone 5 mg tablet 5 mg PO DAILY 30 Days Qty: 30 RF: 0 magnesium oxide 400 mg magnesium Tablet 400 mg PO DAILY RF: 0 alendronate 70 mg tablet 70 mg PO SAHNI RF: 0 mirtazapine 15 mg tablet 15 mg PO BEDTIME 30 Days Qty: 30 RF: 3 metoprolol succinate [Toprol XL] 50 mg tablet extended release 24 hr 25 mg PO DAILY Qty: 30 RF: 0 buprenorphine HCl [Belbuca] 750 mcg film 750 mcg buccal Q8H 30 Days Qty: 90 RF: 0 Discharge Orders: Discharge Order (Routine); Ordered 08/04/21 Ordered By: Williams Galeano Diet: advance to usual diet Activity on Discharge: As tolerated Stand Alone Forms: Patient Portal Discharge page Care Plan Goals: revascularization Health Concerns: cad, chf Plan of Treatment: transfer [place] [facility] [place] Assessment: see above
--- NOTE | 2021-08-04 11:11 | P.PNCA_ITS ---
Subjective Subjective Date of Service: 08/04/21 Interval history: Feels OK. No further cardiac symptoms. Review of Systems Review of Systems Yes all other systems are reviewed and are negative Cardiovascular: Reports as per HPI, Reports no additional cardiovascular complaints, Denies acrocyanosis, Denies cool extremities, Denies painful fingertips, Denies chest pain, Denies chest pain at rest, Denies diaphoresis, Denies syncope, Denies irregular heart rhythm, Denies claudication, Denies leg edema, Denies lightheadedness, Denies palpitations and Reports dyspnea Respiratory: Reports dyspnea Denies syncope Endocrine: Denies palpitations Physical Exam Vital Signs: Last Vital Signs Temp 99.3 F 08/04/21 08:00 Pulse 61 08/04/21 09:05 Resp 18 08/04/21 08:00 BP 129/59 L 08/04/21 09:05 Pulse Ox 99 08/04/21 08:00 Oxygen Flow Rate 2 08/02/21 11:51 Body Mass Index 20.9 Const General: cooperative and no acute distress [facility] Other: Unremarkable Neck Neck: Yes normal visual inspection Chest Chest palpation & inspection: normal inspection of the chest Resp Auscultation: clear to auscultation bilaterally, no crackles and no wheezes Cardio Jugular venous distension: no JVD Palpation: normal PMI Heart sounds: S1 normal heart sound present, S2 normal heart sound present, no gallops, no murmurs and no rubs GI Palpation (GI): Soft to palpation Back/Spine/Pelvis Other: unremarkable Skin General skin exam: no rashes or lesions noted Neuro Cranial nerves: Yes Other cranial nerve findings present Extrem General: Yes no clubbing, cyanosis or edema Psych Mental Status: other Objective Labs and Meds Result diagrams: 08/04/21 06:13 08/04/21 06:13 Lab results: Laboratory Results - last 24 hr 08/04/21 08/04/21 08/04/21 06:13 06:13 06:13 WBC 8.6 RBC 3.24 L Hgb 10.1 L Hct 30.7 L MCV 94.8 MCH 31.2 MCHC 32.9 RDW 14.9 Plt Count 165 MPV 10.2 Absolute Nucleated RBC 0.000 Nucleated RBC % (auto) 0.0 Sodium 138 Potassium 4.6 Chloride 101 Carbon Dioxide 29 Anion Gap 13 BUN 32 H Creatinine 0.84 Estim Creat Clear Calc 47.3 Estimated GFR > 60 Fasting Glucose 102 H Calcium 9.1 Magnesium 1.9 Total Bilirubin 0.5 Direct Bilirubin 0.2 AST 16 D ALT 28 Alkaline Phosphatase 91 D B-Natriuretic Peptide 505 H Total Protein 6.4 L Albumin 3.9 Progress Note: A&P Assessment and plan (1) Acute on chronic systolic (congestive) heart failure: Status: Acute (2) Atherosclerotic cardiovascular disease: Status: Acute (3) Ischemic cardiomyopathy: Status: Acute (4) Renal artery stenosis: Status: Acute Assessment and Plan: In the recent echocardiogram, LVEF 25-30% with reported wall motion abnormality in the LAD territory. In the admission labs, slight anemia with a hemoglobin of 9 but that seems to be around her previous values as well. Potassium is 4.5 but recently, up to 6.2 possibly from Entresto use. Creatinine is 1 but recently as much as 1.77 suspected to be over-diuresis but subsequently normalized. Cardiac BNP is 2 682. On the initial presentation last month, it was 3923 but then within a day it came down to 384. Chest x-ray reported to have interstitial edema. In recent renal ultrasound, elevated velocity on the right side suggestive of renal artery stenosis but nothing significant on the left side. Overall, ischemic cardiomyopathy with prior bypass surgery with recurrent heart failure admissions -2 in 1 month. Even though she has hypertension, I do not see any markedly high blood pressures to suggest hypertensive emergency. The presenting blood pressure was 170/80 mm Hg. There has been a plan for a diagnostic cardiac catheterization scheduled for next and we will try to move that forward to Thursday or Thursday pending availability. Otherwise, with regard to renal artery stenosis detected on US last admission, she already sees for AAA, PVD; will need FU. Fall Risk Details Current Medications: Current Medications Atorvastatin Calcium (Atorvastatin Calcium 80 Mg Tablet) 80 mg PO DAILY [facility] Last Admin: 08/04/21 09:07 Dose: 80 mg Documented by: Calcium Carbonate (Calcium Carbonate 500 Mg Tablet) 500 mg PO DAILY [facility] Last Admin: 08/04/21 09:06 Dose: 500 mg Documented by: Clopidogrel Bisulfate (Clopidogrel Bisulfate 75 Mg Tablet) 75 mg PO DAILY [facility] Last Admin: 08/04/21 09:06 Dose: 75 mg Documented by: Dexamethasone (Dexamethasone 2 Mg Tablet) 2 mg PO DAILY [facility] Last Admin: 08/04/21 09:06 Dose: 2 mg Documented by: Diphenoxylate HCl/Atropine (Diphenoxylate/Atrop 2.5/0.025 Tablet) 1 tab PO BID PRN PRN Reason: diarrhea Enoxaparin Sodium (Enoxaparin Sodium 40 Mg/0.4 Ml Syringe) 40 mg SUBCUT Q24H [facility] Last Admin: 08/03/21 14:39 Dose: 40 mg Documented by: Furosemide (Furosemide 20 Mg Tablet) 20 mg PO DAILY [facility]; Protocol Last Admin: 08/04/21 09:06 Dose: 20 mg Documented by: Metoprolol Succinate (Metoprolol Succinate Er 25 Mg Tab.Er.24h) 25 mg PO DAILY [facility]; Protocol Last Admin: 08/04/21 09:05 Dose: 25 mg Documented by: Mirtazapine (Mirtazapine 15 Mg Tablet) 15 mg PO BEDTIME [facility] Last Admin: 08/03/21 20:58 Dose: 15 mg Documented by: Patient Own Med ( Belbuca 750 Mcg Film ) 1 each BUCCAL TID@0800,1400,2000 [facility] Last Admin: 08/04/21 09:12 Dose: 1 each Documented by: Oxycodone HCl (Oxycodone Hcl Immed Release 5 Mg Tablet) 5 mg PO DAILY [facility] Last Admin: 08/04/21 09:06 Dose: 5 mg Documented by: Pharmacy Consult (Consult Rx Perform Med Rec) 1 each MISCELLANE ONCE PRN PRN Reason: Consult order Pharmacy Consult (Consult Rx Perform Med Rec) 1 each MISCELLANE ONCE PRN PRN Reason: Consult order Sodium Chloride (0.9 % Sodium Chloride Flush 3 Ml Syringe) 3 ml IVFLUSH QSHIFT [facility] Last Admin: 08/04/21 09:07 Dose: 3 ml Documented by: Time Spent With Patient Time: Total time spent is greater than 50% in coordination of care (as documented) at patient's floor/unit and/or counseling patient: Time with patient: less than 15 minutes Progress Note: Quality Stroke Does the patient have a stroke diagnosis?: No Procedures Date of Service Date of Service: 08/04/21
--- NOTE | 2021-08-04 11:45 | MHC.CM.PN ---
PT BEING TRANSFERRED TO [facility] PENDING BED AVAILABILITY AMBULANCE TRANSPORT
[2021-08-04 11:51] VITALS: BP 131/57; PULSE 88; RESP 18; TEMP 36.6; O2SAT 98
[2021-08-04 11:55] VITALS: BP 122/54; PULSE 55; RESP 20; TEMP 36.8; O2SAT 97
--- NOTE | 2021-08-04 13:06 | P.PNIM_ITS ---
Subjective Subjective Date of Service: 08/04/21 Interval History: cc: sob interval history: resolved Cardiovascular Cardiovascular: Reports no additional cardiovascular complaints Respiratory Respiratory: Reports no additional respiratory complaints Physical Exam Vital Signs: Vital Signs: Last Vital Signs Temp 98.3 F 08/04/21 11:55 Pulse 55 08/04/21 11:55 Resp 20 08/04/21 11:55 BP 122/54 L 08/04/21 11:55 Pulse Ox 97 08/04/21 11:55 Oxygen Flow Rate 2 08/02/21 11:51 Body Mass Index 20.9 General: AO X 3, no acute distress Resp: CTA bilateral, no accessory muscles used CVS: S1,S2,RRR GI: soft, non tender, non distended Neuro: motor grossly intact, alert Psych: appropriate affect, appropriate insight Objective Data Active Medications Atorvastatin Calcium (Atorvastatin Calcium 80 Mg Tablet) 80 mg PO DAILY [facility] Last Admin: 08/04/21 09:07 Dose: 80 mg Documented by: AIRAM Calcium Carbonate (Calcium Carbonate 500 Mg Tablet) 500 mg PO DAILY [facility] Last Admin: 08/04/21 09:06 Dose: 500 mg Documented by: AIRAM Clopidogrel Bisulfate (Clopidogrel Bisulfate 75 Mg Tablet) 75 mg PO DAILY [facility] Last Admin: 08/04/21 09:06 Dose: 75 mg Documented by: AIRAM Dexamethasone (Dexamethasone 2 Mg Tablet) 2 mg PO DAILY [facility] Last Admin: 08/04/21 09:06 Dose: 2 mg Documented by: AIRAM Diphenoxylate HCl/Atropine (Diphenoxylate/Atrop 2.5/0.025 Tablet) 1 tab PO BID PRN PRN Reason: diarrhea Enoxaparin Sodium (Enoxaparin Sodium 40 Mg/0.4 Ml Syringe) 40 mg SUBCUT Q24H [facility] Last Admin: 08/03/21 14:39 Dose: 40 mg Documented by: AIRAM Furosemide (Furosemide 20 Mg Tablet) 20 mg PO DAILY [facility]; Protocol Last Admin: 08/04/21 09:06 Dose: 20 mg Documented by: AIRAM Metoprolol Succinate (Metoprolol Succinate Er 25 Mg Tab.Er.24h) 25 mg PO DAILY [facility]; Protocol Last Admin: 08/04/21 09:05 Dose: 25 mg Documented by: AIRAM Mirtazapine (Mirtazapine 15 Mg Tablet) 15 mg PO BEDTIME [facility] Last Admin: 08/03/21 20:58 Dose: 15 mg Documented by: STEPHAN Patient Own Med ( Belbuca 750 Mcg Film ) 1 each BUCCAL TID@0800,1400,2000 [facility] Last Admin: 08/04/21 09:12 Dose: 1 each Documented by: AIRAM Oxycodone HCl (Oxycodone Hcl Immed Release 5 Mg Tablet) 5 mg PO DAILY [facility] Last Admin: 08/04/21 09:06 Dose: 5 mg Documented by: AIRAM Pharmacy Consult (Consult Rx Perform Med Rec) 1 each MISCELLANE ONCE PRN PRN Reason: Consult order Pharmacy Consult (Consult Rx Perform Med Rec) 1 each MISCELLANE ONCE PRN PRN Reason: Consult order Sodium Chloride (0.9 % Sodium Chloride Flush 3 Ml Syringe) 3 ml IVFLUSH QSHIFT [facility] Last Admin: 08/04/21 09:07 Dose: 3 ml Documented by: AIRAM Labs CBC & Chem 7: 08/04/21 06:13 08/04/21 06:13 Labs: Laboratory Results - last 24 hr 08/04/21 08/04/21 08/04/21 06:13 06:13 06:13 MCV 94.8 MCH 31.2 MCHC 32.9 RDW 14.9 Plt Count 165 MPV 10.2 Absolute Nucleated RBC 0.000 Nucleated RBC % (auto) 0.0 Anion Gap 13 Estim Creat Clear Calc 47.3 Estimated GFR > 60 Fasting Glucose 102 H Calcium 9.1 Magnesium 1.9 Total Bilirubin 0.5 Direct Bilirubin 0.2 AST 16 D ALT 28 Alkaline Phosphatase 91 D B-Natriuretic Peptide 505 H Total Protein 6.4 L Albumin 3.9 Microbiology Microbiology Results: Microbiology 08/02/21 15:06 Blood Culture - Preliminary Blood - Venous No growth after 24 hours. 08/02/21 12:06 Blood Culture - Preliminary Blood - Venous No growth after 24 hours. Assessment and Plan (1) Acute congestive heart failure: Status: Acute (2) Ischemic cardiomyopathy: Status: Acute (3) PAD (peripheral artery disease): Status: Acute Assessment and Plan: 65F presented with sob acute on chronic systolic chf (ischemic) diuresed well, now on lasix 20mg po daily cardio appreciated, plan to transfer [place] [facility] [place] continue toprol, plavix, statin back pain has been on decadron for about 6 weeks, will wean off PVD/TREVA continue plavix, statin Quality Stroke Does the patient have a stroke diagnosis?: No VTE Prior VTE?: No VTE Risk Level:: Medical - moderate - high VTE Device Contraindication: Treatment Not Indicated VTE Drug Contraindication: N/A - Med Ordered
== END 2021-08-04 14:51 | disposition short-term general hospital (02) | DRG 291 ==
LOC: HO.ED 13:04 → HO.EDOVER 15:23 → HO.IMC 21:14
PROVIDERS: Admitting Provider Internal Medicine; Emergency Provider Emergency Medicine Emergency Medical Services; PCP Physician Assistant; Visit Provider Internal Medicine
DX: I11.0 Hypertensive heart disease with heart failure (principal); I50.23 Acute on chronic systolic (congestive) heart failure; I25.5 Ischemic cardiomyopathy; I25.10 Atherosclerotic heart disease of native coronary artery without angina pectoris; M54.9 Dorsalgia, unspecified; I73.9 Peripheral vascular disease, unspecified; I70.1 Atherosclerosis of renal artery; Z20.822 Contact with and (suspected) exposure to COVID-19; Z95.810 Presence of automatic (implantable) cardiac defibrillator; Z87.891 Personal history of nicotine dependence; Z79.02 Long term (current) use of antithrombotics/antiplatelets; Z79.899 Other long term (current) drug therapy
CPT/HCPCS: 36415; 71045; 80048; 80053; 80061; 80076; 82043; 83605; 83735; 83880; 84443; 84484; 85025; 85027; 85610; 87040; 87635; 93005; 96374; 99284; 99291; J1650; J1940; J8540

== ENCOUNTER → 2021-08-13 13:54 | Outpatient (BNVA) | payer MEDICARE, MEDICAID, SELFPAY | PROVIDERS: PCP Physician Assistant; Visit Provider Family Medicine Adult Medicine | DX: Z51.81 Encounter for therapeutic drug level monitoring (principal) | CPT/HCPCS: 99211 ==

== ENCOUNTER → 2021-08-14 12:39 | Outpatient (BNVA) | payer MEDICARE, MEDICAID, SELFPAY | PROVIDERS: PCP Physician Assistant; Referring Provider Physician Assistant; Visit Provider Nurse Practitioner Family | DX: I25.5 Ischemic cardiomyopathy (principal); I50.9 Heart failure, unspecified; I73.9 Peripheral vascular disease, unspecified; I25.10 Atherosclerotic heart disease of native coronary artery without angina pectoris; I71.4 Abdominal aortic aneurysm, without rupture; I65.23 Occlusion and stenosis of bilateral carotid arteries; E78.5 Hyperlipidemia, unspecified; Z98.890 Other specified postprocedural states | CPT/HCPCS: 99212 ==

== ENCOUNTER 2021-08-15 09:18 | Emergency (ER) | payer MEDICARE, MEDICAID, SELFPAY ==
--- NOTE | ~2021-08-15 | XR_ITS ---
EXAMINATION: XR CHEST CLINICAL INFORMATION: Acute shortness of breath. COMPARISON: Chest 08/02/2021 TECHNIQUE: Frontal view of the chest was obtained. FINDINGS: The lungs are well-expanded with mild prominence of pulmonary vascularity suggestive of mild CHF. Heart size is enlarged. There are median sternotomy sutures from previous intervention. There is solitary pacer electrode in the right ventricle. No gross abnormality seen. XR/XR chest 1V IMPRESSION: Mild CHF with cardiomegaly No change in solitary pacer electrode and median sternotomy sutures.
--- NOTE | 2021-08-15 09:20 | ED_ITS ---
HPI - SOB/Dyspnea General Chief Complaint: General Medical Stated Complaint: Respiratory Distress Time Seen by Provider: 08/15/21 09:19 Source: EMS Mode of arrival: EMS Limitations: physical limitation History of Present Illness HPI Narrative: patient just discharged from [facility] for CHF and stent. This morning found by EMS tripoding and extremely short of breath. MD elicited complaint: shortness of breath Pertinent past history: COPD and congestive heart failure Onset (ago): hour(s) Context: recent illness Timing: constant Severity: severe Related Data Home Medications Medication Instructions Recorded Confirmed alendronate 70 mg tablet 70 mg PO SAHNI 07/05/21 08/15/21 clopidogrel 75 mg tablet (Plavix) 75 mg PO DAILY 08/15/21 08/15/21 sacubitril 24 mg-valsartan 26 mg 1 tab PO BID 08/15/21 08/15/21 tablet (Entresto) Previous Rx's Medication Instructions Recorded atorvastatin 80 mg tablet 80 mg PO DAILY #90 cap 11/25/20 calcium carbonate 500 mg calcium 500 mg PO DAILY 90 Days #90 tab 03/06/21 (1,250 mg) tablet (Oyster Shell Calcium) metoprolol succinate 50 mg 25 mg PO DAILY #30 tab 07/17/21 tablet,extended release 24 hr (Toprol XL) diphenoxylate-atropine 2.5 1 tab PO BID PRN 30 Days #60 tab 07/18/21 mg-0.025 mg tablet dexamethasone 4 mg tablet 4 mg PO DAILY 30 Days #30 tab 07/19/21 mirtazapine 15 mg tablet 15 mg PO BEDTIME 30 Days #30 tab 07/23/21 buprenorphine HCl 750 mcg buccal 750 mcg BUCCAL Q8H 30 Days #90 ea 08/13/21 film (Belbuca) oxycodone 5 mg tablet 5 mg PO DAILY 30 Days #30 tab 08/13/21 ezetimibe 10 mg tablet (Zetia) 10 mg PO DAILY #30 tab 08/14/21 furosemide 20 mg tablet (Lasix) 20 mg PO DAILY PRN #30 tab 08/14/21 Allergies Allergy/AdvReac Type Severity Reaction Status Date / Time sacubitril [From Entresto] AdvReac Severe hyperkalemi Verified 08/14/21 18:09 a valsartan [From Entresto] AdvReac Severe hyperkalemi Verified 08/14/21 18:09 a Review of Systems Neurologic: Denies Sensory deficit (Neuro) [facility] Past Medical History Medical History AAA (abdominal aortic aneurysm) CAD (coronary artery disease) Cervical spondylosis CKD (chronic kidney disease) stage 3, GFR 30-59 ml/min COVID-19 vaccine series completed Failed back syndrome, lumbar Hiatal hernia History of femoral angiogram History of placement of internal cardiac defibrillator Hx of myocardial infarction Hypertension Ischemic cardiomyopathy Lumbar spondylosis Peripheral vascular disease Surgical History Cardiac defibrillator in place History of biliary duct stent placement History of esophagogastroduodenoscopy (EGD) History of heart bypass surgery History of lumbar fusion History of open reduction and internal fixation (ORIF) procedure History of surgery 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 Sister Gynecologic cancer Social History Social History Household Members: Family Household Members Other:: Son Housing: House Are you a primary healthcare marketer to a significant other at home: No Do you presently have visiting nurse or other home services: No Alcohol intake: never Patient Tobacco Use Status: Former Tobacco user Quit Date: 09/21/16 Tobacco use type: Cigarette Years Smoked: 40 e-Cigarette/Vaping Use: Never Used Second Hand Smoke Exposure: No Substance Use Type: Marijuana Advance Directives: Yes Advance Directives on File: Yes Advance Directives Date on File: 07/06/21 service: No Current occupational status: disabled Cognitive needs: No Hearing needs: No Vision needs: Yes (Glasses) Physical Exam Vital Signs: Vital Signs: Last Vital Signs Temp 97.7 F 08/15/21 10:04 Pulse 54 08/15/21 11:17 Resp 18 08/15/21 11:56 BP 117/49 L 08/15/21 11:17 Pulse Ox 100 08/15/21 10:46 Body Mass Index 24.4 Const: Other: female looking older than stated age very short of breath Orientation/consciousness: oriented to person Limitations: no limitations HENMT: Head: Yes normal to inspection Ears: external ears normal General nose exam: Normal external nose present Mouth: Normal oral and palatal mucosa present and oropharynx normal Throat: Yes posterior oropharynx normal Eyes: General: appearance normal, both eyes and all related structures Neck: Other: supple Neck: Yes normal visual inspection Chest: Chest palpation & inspection: normal inspection of the chest Resp: Auscultation: clear to auscultation bilaterally Cardio: Other: patient with JVD Rate: regular rate Rhythm: regular rhythm Heart sounds: S1 normal heart sound present and S2 normal heart sound present GI: Inspection: Yes normal to inspection Palpation (GI): Soft to palpation, nontender and No hepatosplenomegaly present Auscultation: normal bowel sounds : General: Yes no CVA tenderness Back/Spine/Pelvis: Back: no CVA tenderness Skin: Other: diaphoresis Neuro: General: oriented to person Cranial nerves: Yes CN's II-XII intact bilaterally Motor exam (neuro): 5/5 motor strength present throughout Sensory Exam: No Sensory deficit (Neuro) Extrem: General: Yes normal to inspection Psych: Appearance: grossly normal Course Reevaluation(s) Reevaluation #1: I spent 40 minutes of critical care, with interventions, assessments, speaking to patient, consultants, and family. Discussed with Dr. Le who wants patient transferred. Accepted by [facility] pending COVID Time: 10:45 MDM - SOB/Dyspnea Lab Data Result diagrams: 08/15/21 09:51 08/15/21 09:52 Labs: Lab Results 08/15/21 08/15/21 08/15/21 Range/Units 09:30 09:51 09:51 WBC 10.4 (4.8-10.8) X10*3/uL RBC 2.67 L (4.20-5.50) X10*6/uL Hgb 8.4 L (12.0-16.0) g/dl Hct 25.6 L (37.0-47.0) % MCV 95.9 (80.0-98.0) fL MCH 31.5 (27.0-33.0) pg MCHC 32.8 (31.0-35.0) g/dl RDW 16.0 (11.0-16.0) % Plt Count 178 (160-400) X10*3/uL MPV 9.8 (9.4-12.3) fL Immature Gran % (Auto) 0.7 H (0.0-0.4) % Neut % (Auto) 87.5 H (45-73) % Lymph % (Auto) 8.0 L (20-40) % [place] % (Auto) 3.5 (2-11) % Eos % (Auto) 0.2 (0-4) % Baso % (Auto) 0.1 (0-2) % Lymph # (Auto) 0.8 L (1.2-4.9) X10*3/uL [place] # (Auto) 0.4 (0.1-1.2) X10*3/uL Eos # (Auto) 0.0 (0.0-0.4) X10*3/uL Baso # (Auto) 0.0 (0.0-0.2) X10*3/uL Abs Immat Gran (auto) 0.07 H (0.00-0.03) X10*3/uL Absolute Neuts (auto) 9.1 H (2.0-8.3) x10*3/uL Absolute Nucleated RBC 0.000 (0.0-0.012) X10*3/uL Nucleated RBC % (auto) 0.0 (0.0-0.2) /100WBC D-Dimer High Sensitivty 838 NG/ML Sodium (135-145) mmol/L Potassium (3.3-5.1) mmol/L Chloride (96-108) mmol/L Carbon Dioxide (22-29) mmol/L Anion Gap (12-20) BUN (9-16) mg/dL Creatinine (0.5-1.4) mg/dL Estim Creat Clear Calc Estimated GFR POC Glucose 182 H (60-115) mg/dL Random Glucose (60-115) mg/dL Calcium (8.4-10.2) mg/dL Troponin I High Sens (<3.5-17.0) ng/L B-Natriuretic Peptide (<100) pg/mL COVID-19 (BINU) (Negative) COVID-19 Clin Com 11/25/21 11/25/21 11/25/21 Range/Units 09:52 09:52 10:46 WBC (4.8-10.8) X10*3/uL RBC (4.20-5.50) X10*6/uL Hgb (12.0-16.0) g/dl Hct (37.0-47.0) % MCV (80.0-98.0) fL MCH (27.0-33.0) pg MCHC (31.0-35.0) g/dl RDW (11.0-16.0) % Plt Count (160-400) X10*3/uL MPV (9.4-12.3) fL Immature Gran % (Auto) (0.0-0.4) % Neut % (Auto) (45-73) % Lymph % (Auto) (20-40) % [place] % (Auto) (2-11) % Eos % (Auto) (0-4) % Baso % (Auto) (0-2) % Lymph # (Auto) (1.2-4.9) X10*3/uL [place] # (Auto) (0.1-1.2) X10*3/uL Eos # (Auto) (0.0-0.4) X10*3/uL Baso # (Auto) (0.0-0.2) X10*3/uL Abs Immat Gran (auto) (0.00-0.03) X10*3/uL Absolute Neuts (auto) (2.0-8.3) x10*3/uL Absolute Nucleated RBC (0.0-0.012) X10*3/uL Nucleated RBC % (auto) (0.0-0.2) /100WBC D-Dimer High Sensitivty NG/ML Sodium 134 L (135-145) mmol/L Potassium 4.1 (3.3-5.1) mmol/L Chloride 105 (96-108) mmol/L Carbon Dioxide 20 L (22-29) mmol/L Anion Gap 13 (12-20) BUN 22 H (9-16) mg/dL Creatinine 0.96 (0.5-1.4) mg/dL Estim Creat Clear Calc 45.5 Estimated GFR 58 POC Glucose (60-115) mg/dL Random Glucose 174 H (60-115) mg/dL Calcium 8.8 (8.4-10.2) mg/dL Troponin I High Sens 31.7 H* D (<3.5-17.0) ng/L B-Natriuretic Peptide 2205 H (<100) pg/mL COVID-19 (BINU) Negative (Negative) COVID-19 Clin Com See Note Imaging Data Chest x-ray: Radiologist's impression: IMPRESSION: Mild CHF with cardiomegaly ? No change in solitary pacer electrode and median sternotomy sutures. ? Procedures Procedure Narrative Procedure Narrative: Ultrasound guided left brachial IV placement by wa Discharge Plan Discharge Clinical Impression: Ischemic cardiomyopathy, Acute congestive heart failure Patient Disposition: [facility] Prescriptions: No Action atorvastatin 80 mg tablet 80 mg PO DAILY Qty: 90 RF: 2 calcium carbonate [Oyster Shell Calcium] 500 mg calcium (1,250 mg) tablet 500 mg PO DAILY 90 Days Qty: 90 RF: 1 diphenoxylate-atropine 2.5-0.025 mg tablet 1 tab PO BID PRN (Reason: diarrhea) 30 Days Qty: 60 RF: 2 dexamethasone 4 mg tablet 4 mg PO DAILY 30 Days Qty: 30 RF: 0 buprenorphine HCl [Belbuca] 750 mcg film 750 mcg buccal Q8H 30 Days Qty: 90 RF: 0 oxycodone 5 mg tablet 5 mg PO DAILY 30 Days Qty: 30 RF: 0 clopidogrel [Plavix] 75 mg tablet 75 mg PO DAILY RF: 0 Entresto 24-26 mg tablet 1 tab PO BID RF: 0 alendronate 70 mg tablet 70 mg PO SAHNI RF: 0 mirtazapine 15 mg tablet 15 mg PO BEDTIME 30 Days Qty: 30 RF: 3 metoprolol succinate [Toprol XL] 50 mg tablet extended release 24 hr 25 mg PO DAILY Qty: 30 RF: 0 furosemide [Lasix] 20 mg tablet 20 mg PO DAILY PRN (Reason: weight gain) Qty: 30 RF: 1 ezetimibe [Zetia] 10 mg tablet 10 mg PO DAILY Qty: 30 RF: 5
--- NOTE | 2021-08-15 09:23 | ECG_ITS ---
Test Reason : SOB Blood Pressure : / mmHG Vent. Rate : 090 BPM Atrial Rate : 090 BPM P-R Int : 126 ms QRS Dur : 086 ms QT Int : 368 ms P-R-T Axes : 072 -13 157 degrees QTc Int : 450 ms Poor data quality Normal sinus rhythm Possible Left atrial enlargement Left ventricular hypertrophy with repolarization abnormality ( R in aVL , Drake product ) RSR' or QR pattern in V1 suggests right ventricular conduction delay Nonspecific ST abnormality Lateral leads Abnormal ECG When compared with ECG of 02-AUG-2021 12:05, T wave inversion less evident in Lateral leads Heart rate has increased Referred By: Abraham Doss Electronically Signed By:KRISTOPHER SAMUEL MD
[2021-08-15 09:32] VITALS: PULSE 84; RESP 32; O2SAT 99
--- NOTE | 2021-08-15 09:52 | PC.NURSE ---
RN aware POC 182
[2021-08-15 09:56] LABS: MANUAL DIFF FLAG NO
[2021-08-15 09:57] LABS: Basophils Percent Auto 0.1 % (0-2); Eosinophils Percent Auto 0.2 % (0-4); Hematocrit 25.6 % (37.0-47.0); Hemoglobin 8.4 g/dl (12.0-16.0); Imm Gran Abs Auto 0.07 X10*3/uL (0.00-0.03); Imm Gran Pct Auto 0.7 % (0.0-0.4); Lymphocytes Absolute Auto 0.8 X10*3/uL (1.2-4.9); Mean Corpuscular HGB Conc 32.8 g/dl (31.0-35.0); Mean Corpuscular Hemoglobin 31.5 pg (27.0-33.0); Mean Corpuscular Volume 95.9 fL (80.0-98.0); Mean Platelet Volume 9.8 fL (9.4-12.3); Monocytes Absolute Auto 0.4 X10*3/uL (0.1-1.2); Monocytes Percent Auto 3.5 % (2-11); Neutrophils Absolute Auto 9.1 x10*3/uL (2.0-8.3); Neutrophils Percent Auto 87.5 % (45-73); Platelet Count 178 X10*3/uL (160-400); Red Blood Count 2.67 X10*6/uL (4.20-5.50); White Blood Count 10.4 X10*3/uL (4.8-10.8)
[2021-08-15 09:57] LABS: Glucose, Whole Blood 182 mg/dL (60-115)
[2021-08-15 10:04] VITALS: PULSE 68; RESP 36; TEMP 36.5; O2SAT 92; BMI 24.4
[2021-08-15 10:10] LABS: Anion Gap 13 (12-20); Blood Urea Nitrogen 22 mg/dL (9-16); Calcium 8.8 mg/dL (8.4-10.2); Carbon Dioxide 20 mmol/L (22-29); Chloride 105 mmol/L (96-108); Creatinine Clr Calc Pharmacy 45.5; Estimated Glomerular Filt Rate 58; Glucose Random 174 mg/dL (60-115); Potassium 4.1 mmol/L (3.3-5.1); Sodium 134 mmol/L (135-145)
[2021-08-15 10:13] LABS: D Dimer High Sensitivity 838 NG/ML
[2021-08-15 10:19] LABS: B Type Natriuretic Peptide 2205 pg/mL (<100)
[2021-08-15 10:24] LABS: Troponin-I High Sensitivity 31.7 ng/L (<3.5-17.0)
[2021-08-15 10:46] VITALS: BP 120/54; PULSE 57; RESP 21; O2SAT 100
[2021-08-15 11:09] LABS: COVID-19 Test Negative (Negative)
[2021-08-15 11:15] VITALS: BP 140/89; PULSE 68
[2021-08-15] MEDS: Nitroglycerin/D5W 100 MG/250 ML INFUS..BTL IVCONT (11:15)
[2021-08-15 11:17] VITALS: BP 117/49; PULSE 54
[2021-08-15] MEDS: Furosemide 40 MG/4 ML VIAL IVPUSH (11:17)
[2021-08-15] MEDS: hydrALAZINE HCl 20 MG/ML VIAL 5 MG IVPUSH (11:17)
[2021-08-15] MEDS: Morphine Sulfate 4 MG/ML CARTRIDGE IVPUSH (11:18)
--- NOTE | 2021-08-15 11:32 | PC.NURSE ---
CALLED [facility] TO GIVE REPORT, ASKED TO CALL BACK
[2021-08-15 11:56] VITALS: PULSE 72; RESP 18; O2SAT 98
== END 2021-08-15 13:29 | disposition short-term general hospital (02) ==
PROVIDERS: Emergency Provider Emergency Medicine; PCP Physician Assistant
DX: I25.5 Ischemic cardiomyopathy (principal); R06.02 Shortness of breath; I13.0 Hypertensive heart and chronic kidney disease with heart failure and stage 1 through stage 4 chronic kidney disease, or unspecified chronic kidney disease; N18.30 Chronic kidney disease, stage 3 unspecified; I50.9 Heart failure, unspecified; Z95.5 Presence of coronary angioplasty implant and graft; Z98.890 Other specified postprocedural states
CPT/HCPCS: 36415; 71045; 80048; 82947; 83880; 84484; 85025; 85379; 87635; 93005; 94660; 96365; 96366; 96375; 99285; J1940; J2270

== ENCOUNTER 2021-09-09 13:29 | Outpatient (REF) | payer MEDICARE, MEDICAID, SELFPAY ==
--- NOTE | ~2021-09-09 | US_ITS ---
EXAMINATION: US EXTRACRANIAL CAROTID DUPLEX, BILATERAL CLINICAL INFORMATION: This is a 65-year-old female with occlusion and stenosis of the bilateral carotid arteries. Hypertension. Hyperlipidemia. COMPARISON: Comparison is made to a previous study dated 04/02/2021 which demonstrated bilateral 50-79% internal carotid artery stenoses. TECHNIQUE: Real-time ultrasound and Doppler techniques (integrating B-mode 2-D vascular images, Doppler spectral analysis and color-flow Doppler imaging) were utilized to interrogate the extracranial carotid arteries, the vertebral arteries and proximal subclavian arteries bilaterally. The degree of stenosis is determined by criteria similar to NASCET. FINDINGS: Right Side: 1. There is moderate atherosclerotic plaque seen in the bifurcation/proximal ICA region. 2. The common carotid artery PSV proximally is 146 cm/s and distally 91 cm/s. 3. The proximal internal carotid artery velocities are 142 cm/s systolic and 36 cm/s diastolic. 4. The proximal external carotid artery PSV is 158 cm/s. 5. The vertebral artery shows antegrade flow. 6. The subclavian artery waveforms are normal. Left Side: 1. There is moderate atherosclerotic plaque seen in the bifurcation/proximal ICA region. 2. The common carotid artery PSV proximally is 93 cm/s and distally 119 cm/s. 3. The proximal internal carotid artery velocities are 54 cm/s systolic and 37 cm/s diastolic. 4. The proximal external carotid artery PSV is 196 cm/s. 5. The vertebral artery shows antegrade flow. 6. The subclavian artery waveforms are elevated and stenotic with a velocity of 408 cm/s. This is new compared to the previous study. US/US carotid duplex BI IMPRESSION: 1. RIGHT: Moderate, hemodynamically significant stenosis of the proximal right internal carotid artery corresponding to a 50-79% stenosis by velocity criteria. 2. LEFT: Moderate, hemodynamically significant stenosis of the proximal left internal carotid artery corresponding to a 50-79% stenosis by velocity criteria. 3. There is no change in the category severity of internal carotid artery disease when compared to the previous study dated 04/02/2021. However, the left vertebral artery is now retrograde and the left subclavian artery appears stenotic. This appears new in the left vertebral artery and left subclavian artery, respectively.
== END 2021-09-09 13:30 | disposition home or self-care (01) ==
LOC: HO.US 13:29
PROVIDERS: PCP Physician Assistant; Visit Provider Nurse Practitioner Family
DX: I65.23 Occlusion and stenosis of bilateral carotid arteries (principal); E78.5 Hyperlipidemia, unspecified
CPT/HCPCS: 93880

== ENCOUNTER → 2021-09-10 14:26 | Outpatient (BNVA) | payer MEDICARE, MEDICAID, SELFPAY | PROVIDERS: PCP Physician Assistant; Visit Provider Family Medicine Adult Medicine | DX: Z51.81 Encounter for therapeutic drug level monitoring (principal); F11.20 Opioid dependence, uncomplicated | CPT/HCPCS: 99211 ==

== ENCOUNTER → 2021-10-11 11:39 | Outpatient (BNVA) | payer MEDICARE, MEDICAID, SELFPAY | PROVIDERS: PCP Physician Assistant; Visit Provider Internal Medicine | DX: Z98.890 Other specified postprocedural states (principal) | CPT/HCPCS: 99212 ==

== ENCOUNTER → 2021-11-14 12:24 | Outpatient (BNVA) | payer MEDICARE, MEDICAID, SELFPAY | PROVIDERS: PCP Physician Assistant; Referring Provider Physician Assistant; Visit Provider Internal Medicine Cardiovascular Disease | DX: I50.9 Heart failure, unspecified (principal); I25.10 Atherosclerotic heart disease of native coronary artery without angina pectoris; I71.4 Abdominal aortic aneurysm, without rupture; N18.30 Chronic kidney disease, stage 3 unspecified; Z87.891 Personal history of nicotine dependence; Z95.5 Presence of coronary angioplasty implant and graft; Z95.1 Presence of aortocoronary bypass graft; Z95.810 Presence of automatic (implantable) cardiac defibrillator; Z98.890 Other specified postprocedural states | CPT/HCPCS: 99212 ==

== ENCOUNTER 2021-11-20 13:24 | Outpatient (REF) | payer MEDICARE, MEDICAID, SELFPAY ==
--- NOTE | ~2021-11-20 | US_ITS ---
EXAMINATION: COLOR-FLOW DUPLEX IMAGING OF THE BILATERAL LOWER EXTREMITY ARTERIAL SYSTEM. VELOCITY MEASUREMENTS THROUGHOUT THE FEMORAL ARTERIES WITH ANKLE-BRACHIAL PERIPHERAL ARTERIAL TESTING. Interventional Radiologist: Erlin Su M.D., F.S.I.R., F.A.C.R. CLINICAL INFORMATION: This is a 66-year-old female with history of left femoral endarterectomy and right iliac stent. Peripheral arterial disease. COMPARISON: Comparison is made to limited portions of the study dated 08/25/2011 which demonstrated right iliac artery occlusion and severe bilateral superficial femoral artery disease. Comparison is made to a previous study dated 04/02/2021. RIGHT FEMORAL RUNOFF VELOCITIES: Right common iliac artery measures 114 cm/s. Right external iliac artery and/or stent measures 178 cm/s. The right common femoral artery measures 268 cm/s and monophasic. Previously, 158 cm/s and monophasic. The right profunda femoral artery is 428 cm/s and monophasic. Previously, 403 cm/s and is biphasic. This is suspicious for high-grade stenosis. Right proximal superficial femoral artery measures 38 cm/s and monophasic. Previously, 43 cm/s and monophasic. Mid superficial femoral artery is occluded. This is unchanged. Distal right superficial femoral artery measures 78 cm/s and monophasic. Previously, 27 cm/s and is biphasic. Right popliteal velocity measures 145 cm/s and monophasic. Previously, 47 cm/s and is monophasic. The posterior tibial artery velocity measures 29 cm/s and monophasic. Previously, 35 cm/s and was monophasic. The right ankle-brachial index is 0.59. Previously, 0.43. The waveforms are dampened. There is diffuse calcified atherosclerotic disease. LEFT FEMORAL RUNOFF VELOCITIES: The left common iliac artery measures 196 cm/s. Left external iliac artery measures 345 cm/s. This appears to be hemodynamically significant stenosis. The left common femoral artery measures 665 cm/s and monophasic. Previously, 233 cm/s and monophasic. This is suspicious for hemodynamically significant stenosis. The left profunda femoral artery is 119 cm/s and monophasic. Previously, 161 cm/s and is monophasic. Left proximal superficial femoral artery measures 124 cm/s and monophasic. Previously, 161 cm/s and monophasic. Mid superficial femoral artery is 110 cm/s and monophasic. Previously, 67 cm/s and monophasic. Distal left superficial femoral artery measures 39 cm/s and monophasic. Previously, 42 cm/s and is monophasic. Left popliteal velocity measures 36 cm/s and monophasic. Previously, 38 cm/s and is monophasic. The posterior tibial artery velocity measures 23 cm/s and monophasic. Previously, 31 cm/s and was monophasic. The left ankle-brachial index is 0.39. Previously, 0.48. The waveforms are dampened. There is diffuse calcified atherosclerotic disease. US/US arterial duplex LE BI IMPRESSION: 1. RIGHT LEG: There is a hemodynamically significant stenosis of the right profunda femoral artery which appears worse. There is occlusion of the mid right superficial femoral artery which is unchanged. Diffuse atherosclerotic plaque is present. There is moderate-severe hemodynamically significant obstruction based on the ankle-brachial index which appears slightly worse. 2. LEFT LEG: There is a hemodynamically significant stenosis in the left common femoral artery which appears worse. There is a hemodynamically significant stenosis of the left external iliac artery. There is diffuse atherosclerotic disease throughout the left outflow. There is moderate hemodynamically significant obstruction based on the ankle-brachial index which appears worse.
== END 2021-11-20 13:25 | disposition home or self-care (01) ==
LOC: HO.US 13:24
PROVIDERS: Visit Provider Surgery Vascular Surgery
DX: I73.9 Peripheral vascular disease, unspecified (principal); Z95.820 Peripheral vascular angioplasty status with implants and grafts; Z98.890 Other specified postprocedural states
CPT/HCPCS: 93923; 93925

== ENCOUNTER → 2021-11-22 11:32 | Outpatient (BNVA) | payer MEDICARE, MEDICAID, SELFPAY | PROVIDERS: PCP Physician Assistant; Visit Provider Nurse Practitioner Family | DX: M96.1 Postlaminectomy syndrome, not elsewhere classified (principal); M47.812 Spondylosis without myelopathy or radiculopathy, cervical region; M47.816 Spondylosis without myelopathy or radiculopathy, lumbar region; I73.9 Peripheral vascular disease, unspecified; I71.4 Abdominal aortic aneurysm, without rupture; I25.10 Atherosclerotic heart disease of native coronary artery without angina pectoris; I12.9 Hypertensive chronic kidney disease with stage 1 through stage 4 chronic kidney disease, or unspecified chronic kidney disease; N18.30 Chronic kidney disease, stage 3 unspecified; Z87.891 Personal history of nicotine dependence; Z95.810 Presence of automatic (implantable) cardiac defibrillator; Z96.89 Presence of other specified functional implants; Z88.8 Allergy status to other drugs, medicaments and biological substances; Z79.899 Other long term (current) drug therapy | CPT/HCPCS: 99212 ==

== ENCOUNTER → 2021-11-26 14:13 | Outpatient (BNVA) | payer MEDICARE, MEDICAID, SELFPAY | PROVIDERS: PCP Physician Assistant; Visit Provider Surgery Vascular Surgery | DX: I73.9 Peripheral vascular disease, unspecified (principal) | CPT/HCPCS: 99212 ==

== ENCOUNTER 2021-12-18 06:05 | Day surgery (SDC) | payer MEDICARE, MEDICAID, SELFPAY ==
[2021-12-18] VITALS (10 sets, daily range): BP systolic 113–129; BP diastolic 37–53; PULSE 45–59; RESP 15–18; TEMP 36.4–36.8; O2SAT 96–100; BMI 20.5
[2021-12-18 06:43] LABS: MANUAL DIFF FLAG NO
[2021-12-18 06:50] LABS: White Blood Count 8.1 X10*3/uL (4.8-10.8)
[2021-12-18 06:51] LABS: Basophils Absolute Auto 0.1 X10*3/uL (0.0-0.2); Basophils Percent Auto 0.6 % (0-2); Eosinophils Absolute Auto 0.4 X10*3/uL (0.0-0.4); Eosinophils Percent Auto 4.3 % (0-4); Hematocrit 31.2 % (37.0-47.0); Hemoglobin 10.1 g/dl (12.0-16.0); Imm Gran Abs Auto 0.03 X10*3/uL (0.00-0.03); Imm Gran Pct Auto 0.4 % (0.0-0.4); Lymphocytes Percent Auto 24.2 % (20-40); Mean Corpuscular HGB Conc 32.4 g/dl (31.0-35.0); Mean Corpuscular Hemoglobin 28.3 pg (27.0-33.0); Mean Corpuscular Volume 87.4 fL (80.0-98.0); Mean Platelet Volume 9.8 fL (9.4-12.3); Monocytes Absolute Auto 0.5 X10*3/uL (0.1-1.2); Monocytes Percent Auto 6.5 % (2-11); Neutrophils Absolute Auto 5.2 x10*3/uL (2.0-8.3); Platelet Count 214 X10*3/uL (160-400); Red Blood Count 3.57 X10*6/uL (4.20-5.50); Red Cell Distribution Width 15.1 % (11.0-16.0)
[2021-12-18 07:02] LABS: Blood Urea Nitrogen 15 mg/dL (9-16); Creatinine Clr Calc Pharmacy 34.7; Estimated Glomerular Filt Rate 48
[2021-12-18] MEDS: iohexoL 300 MG/ML 100 ML INFUS..BTL IV (09:24)
[2021-12-18] MEDS: iohexoL 300 MG/ML 50 ML INFUS..BTL PR (09:24)
--- NOTE | 2021-12-18 10:01 | P.OP_ITS ---
Operative Note Operative Note Date of Service: 12/18/21 Narrative: Angiogram report from [facility] Preoperative diagnosis: Atherosclerosis of left lower extremity with activity limiting claudication Postoperative diagnosis: Same Procedure: 1. Ultrasound-guided right common femoral access 2. Aortogram with left lower extremity runoff 3. Right common iliac plasty Surgeon:Levi Mann M.D., FACS, RPVI [employer] Officer:None Anesthesia: Local with moderate conscious sedation. Total intraservice moderate sedation time was 75 minutes. I monitored the patient's level of consciousness and physiologic status continuously throughout the procedure. Specimens:none Drains:none Estimated blood loss: Less than 10 ml Implant: [employer] Impact DCB [id number] Indications: 66-year-old female with known history of peripheral vascular disease and prior left femoral endarterectomy presents for endovascular intervention. She has an ISAAC of 0.39. The patient has signed the informed consent after reviewing risks, complications, benefits, and alternatives previously discussed with the patient. The patient was given the opportunity to ask any additional questions or voice any concerns. All questions were answered to the patient's satisfaction. Procedure in detail: Patient was brought to the angiography suite prior to which a time-out was called for patient identification and site verification. Bilateral groins were prepped and draped in the standard surgical fashion. Under ultrasound guidance right common femoral was punctured with micro puncture needle and wire. Subsequently a precision 5 [place] sheath was then placed. Bentson wire was advanced to the level of the aorta. 5 [place] Flush catheter was brought up and parked at the level of the renal arteries. Aortogram was then undertaken. Catheter was brought down to the level of the iliac bifurcation. Iliacs were subsequently imaged. Catheter was then brought in up and over to the left side common iliac. We could not advance the catheter any further. Runoff study was then undertaken. At this time 4000 units of systemic heparin was administered. After 5 minutes of circulation time up and over 6 [place] sheath was then placed. We tried to manipulate and 035 wire and subsequently an 014 wire through the external iliac which was done a near total occlusion. We were unable to do so. Multiple orthogonal views were undertaken. We brought the catheter wire sheath back to the ipsilateral side, which was the right side. There was InStent stenosis in the common iliac. We 1st placed a regular 6 x 40 balloon and subsequently a 6 x 40 drug coated balloon. The drug coated balloon was brought into position in under 3 minutes and insufflated for a total of 3 minutes in duration. Once this was done catheter wire sheath was then removed. Direct pressure was held for 15 minutes to at obtain adequate hemostasis. Patient tolerated the procedure well. Interpretation of films: 1. Ultrasound demonstrates appropriate femoral puncture. Image of which was saved. 2. Aortogram demonstrates appropriate caliber aorta. Significant calcific disease through the distal aorta with a tight ring Appropriate take-off of the renals. 3. Iliac images demonstrate right side InStent restenosis. Left side we noted that there was disease throughout the entire iliacs they were stenotic external iliac is near total occlusion there is a dominant hypogastric which has been used to collateralized down to the common femoral. 4. Left Leg Common femoral artery: Mild to moderate disease Profundus Femoris: No significant disease but diminutive Superficial femoral artery: Occluded Popliteal artery (p1,p2,p3): Could not reflux down Anterior tibial artery: Unable to image Peroneal artery: Unable to image Posterior tibial artery: Unable to image Dorsalis pedis/plantar arch: Not present Conclusion: 1. Successful plasty of right iliac. Left side total occlusion was unable to intervene. Will need open fem-fem bypass 2. Anticoagulation status: Continue current anticoagulation of aspirin and Plavix This note is constructed using voice recognition software. While every effort has been made to ensure accuracy, equipment sterilizer errors may have been included. Thank you for allowing me to participate in the care of your patient. Yours sincerely, Levi Mann MD, FACS, R.P.V.I.
== END 2021-12-18 13:12 | disposition home or self-care (01) ==
PROVIDERS: PCP Physician Assistant; Visit Provider Surgery Vascular Surgery
DX: T82.856A Stenosis of peripheral vascular stent, initial encounter (principal); I70.201 Unspecified atherosclerosis of native arteries of extremities, right leg; I70.212 Atherosclerosis of native arteries of extremities with intermittent claudication, left leg; I70.92 Chronic total occlusion of artery of the extremities; R26.2 Difficulty in walking, not elsewhere classified; Y82.8 Other medical devices associated with adverse incidents; Y83.8 Other surgical procedures as the cause of abnormal reaction of the patient, or of later complication, without mention of misadventure at the time of the procedure; Y92.9 Unspecified place or not applicable; I12.9 Hypertensive chronic kidney disease with stage 1 through stage 4 chronic kidney disease, or unspecified chronic kidney disease; N18.30 Chronic kidney disease, stage 3 unspecified; F17.210 Nicotine dependence, cigarettes, uncomplicated; Z79.02 Long term (current) use of antithrombotics/antiplatelets; Z79.82 Long term (current) use of aspirin; Z88.8 Allergy status to other drugs, medicaments and biological substances; Z95.810 Presence of automatic (implantable) cardiac defibrillator
CPT/HCPCS: 36415; 37220; 76937; 82565; 84520; 85025; 99152; 99153; C1725; C1726; C1769; C1887; J2250; J3010; Q9967

== ENCOUNTER → 2021-12-20 12:59 | Outpatient (BNVA) | payer MEDICARE, MEDICAID, SELFPAY | PROVIDERS: PCP Physician Assistant; Visit Provider Nurse Practitioner Family | DX: M96.1 Postlaminectomy syndrome, not elsewhere classified (principal); M47.816 Spondylosis without myelopathy or radiculopathy, lumbar region; I73.9 Peripheral vascular disease, unspecified | CPT/HCPCS: 99212 ==

== ENCOUNTER → 2021-12-25 14:45 | Outpatient (REF) | payer MEDICARE, MEDICAID, SELFPAY ==
--- NOTE | 2021-12-25 14:47 | CA_ITS ---
Transthoracic Echocardiogram Patient (Last, First, Middle): Luci Grady, Gender: Female Date of : 1955 Age: 66 Procedure Date: 12/25/2021 Procedure Type: Transthoracic Echocardiogram Location: OP Height: 149.86 cm Weight: 47.63 kg BSA: 1.40 m2 Heart Rate: bpm BP: 128 / 96 mmHg Beamer Operator: JOSHUA Referring MD: Maxwell Le MD Management Coordinator: Maxwell Le MD Symptoms: I50.9 - Heart failure, unspecified Study Quality: Fair/Contrast ECG Rhythm: Sinus Conclusions: - 1. Ulax-bo-kijecgpe LV systolic dysfunction with impaired relaxation filling pattern with suggestion of elevated left ventricular end-diastolic pressure is regional wall motion is suggestive ischemic cardiomyopathy 2. Moderate left atrial enlargement 3. Moderate mitral regurgitation 4. Normal RV systolic pressure 5. No gross pericardial effusion Findings Procedure Information Contrast agent, definity, is being given per protocol without apparent complications. Left Ventricle Normal left ventricular cavity size. There is normal left ventricular wall thickness. The left ventricular systolic function is mild to moderately decreased. The visually estimated ejection fraction is between 40-45%. Spectral Doppler is indicative of an impaired relaxation filling pattern. Elevated left ventricular end diastolic pressure. E/E prime ratio is between 8 and 15 consistent with indeterminate filling pressures. Wall Motion Rest Echo Findings The inferoseptal wall, the apex, apical anterior, apical septum, and mid anteroseptal segments are akinetic. All other scored wall segments showed normal motion. Right Ventricle Normal right ventricular cavity size and systolic function. There is an ICD wire seen in the right ventricle. Atria The left atrium is moderately dilated. There is no evidence of interatrial shunt. The right atrium is normal in size. Aortic Valve There is mild calcification of the aortic valve. There is no aortic valve stenosis. There is trace (trivial) aortic valve regurgitation. Mitral Valve There is mild anterior and moderate posterior mitral leaflet thickening. The posterior mitral leaflet has restricted mobility. There is mild mitral annular calcification. There is moderate mitral valve regurgitation. There is no mitral valve stenosis. Pulmonic Valve The pulmonic valve was not well visualized. Tricuspid Valve Likely normal tricuspid valve structure and function. There is mild tricuspid valve regurgitation. The right ventricular systolic pressure is normal. The right ventricular systolic pressure is 37 mmHg. Normal right atrial pressure. There is no evidence of pulmonary hypertension. Great Vessels All visible segments of the aorta are normal in size. The pulmonary artery was not well visualized. Small plaque is seen in the sino tubular ridge. Venous The inferior vena cava is normal in size and collapses greater than 50% with inspiration. Pericardium/Pleural There is no evidence of pericardial effusion. Prior Study Comparison Changes noted compared to prior study dated: 07/06/2021. LV systolic function has improved Measurements 2D Linear Measurements IVSd: 0.97 0.6-0.9/0.6-1.0 cm LVIDd: 5.33 3.9-5.3/4.2-5.9 cm LVIDd Index: 3.81 2.4-3.2/2.2-3.1 cm/m2 LVIDs: 4.24 2.0-3.6 cm LVPWd: 0.81 0.7-1.1 cm LA Diam: 4.00 2.7-3.8/3.0-4.0 cm LAIDs Index: 2.86 1.5-2.3 cm/m2 LV Mass: 216.17 67-162/88-224 g LV Mass Index: 154.41 43-95/49-115 g/m2 LVOT Diam: 2.00 3.0+(-)1.3 cm 2D Systolic Function EF 4C: 44.30 >55% EF 2C: 54.80 >55% Mitral Valve MV Pk E: 0.81 MV PK A: 0.90 MV Decel Time: 312.00 E/A: 0.90 E'Lateral: 7.07 E'Medial: 4.46 E/E' Med: 18.30 E/E' Lat: 11.50 PHT: 91.00 MVA PHT: 2.42 Decel [place]: 2.61 MR Vol - PW Dopp: 68.51 MR VTI: 2.21 MR ERO: 31.00 MR Alias Eb: 0.34 MR RAD: 0.90 Aortic Valve AoV Pk Eb: 1.66 AoV Mn Eb: 1.13 AoV VTI: 0.40 AoV Pk Grad: 11.00 Aov Mn Grad: 5.00 MONSE Cont.VTI: 1.88 LVOT LVOT Pk Eb: 1.09 LVOT Mn Eb: 0.66 LVOT VTI: 0.24 LVOT Pk Grad: 5.00 LVOT Mn Grad: 2.00 LVOT Diam: 2.00 LVOT Area: 3.14 Diastolic Function MV Pk E: 0.81 MV Pk A: 0.90 E/A: 0.90 E'Medial: 4.46 E/E' Med: 18.30 E' Laterial: 7.07 E/E' Lat: 11.50 Right Ventricle TAPSE (mm): 18.10 TVS' Eb: 10.60 Tricuspid Valve TR Pk Eb: 2.93 TR Pk Grad: 34.00 RA Press: 3.00 RVSP: 37.00 Great Vessels Aorta Sinus of Valsalva: 2.80 2.0-3.[address] [place]: 2.53 1.7-3.4 cm Ao Asc: 3.00 2.1-3.4 cm Ao Arch: 2.80 Updated in Other Vendor System with Status of Final Maxwell Le MD electronically signed on 12/27/2021 12:47:33 PM with status of Final
== END ==
LOC: HO.CARD 14:45
PROVIDERS: Visit Provider Internal Medicine Cardiovascular Disease
DX: I50.9 Heart failure, unspecified (principal)
CPT/HCPCS: 93306; Q9957

== ENCOUNTER → 2022-01-17 13:48 | Outpatient (BNVA) | payer MEDICARE, MEDICAID, SELFPAY | PROVIDERS: PCP Physician Assistant; Visit Provider Nurse Practitioner Family | DX: Z13.89 Encounter for screening for other disorder (principal) ==

== ENCOUNTER 2022-01-29 08:41 | Outpatient (REF) | payer MEDICARE, MEDICAID, SELFPAY ==
--- NOTE | ~2022-01-29 | XR_ITS ---
EXAMINATION: XR HAND, LEFT CLINICAL INFORMATION: Pain left hand. COMPARISON: None TECHNIQUE: PA, lateral, and oblique views of the left hand. FINDINGS: There is loss of PIP and DIP joint space of all digits without bony erosive changes or spurring. The 1st MCP joint space is normal. No bony erosive changes seen. There are no loose bodies. There is diffuse osteopenia. XR/XR hand LT min 3V IMPRESSION: Diffuse osteopenia. Mild early degenerative changes PIP and DIP joints. No visible acute fracture or dislocation seen.
== END 2022-01-29 08:42 | disposition home or self-care (01) ==
LOC: HO.HOSX 08:41
PROVIDERS: Visit Provider Orthopaedic Surgery
DX: M18.12 Unilateral primary osteoarthritis of first carpometacarpal joint, left hand (principal)
CPT/HCPCS: 20600; 73130; 99202; J1020

== ENCOUNTER → 2022-02-11 12:49 | Outpatient (BNVA) | payer MEDICARE, MEDICAID, SELFPAY | PROVIDERS: PCP Physician Assistant; Referring Provider Physician Assistant; Visit Provider Internal Medicine Cardiovascular Disease | DX: I50.20 Unspecified systolic (congestive) heart failure (principal); I25.10 Atherosclerotic heart disease of native coronary artery without angina pectoris; Z95.5 Presence of coronary angioplasty implant and graft; Z95.810 Presence of automatic (implantable) cardiac defibrillator; Z79.899 Other long term (current) drug therapy | CPT/HCPCS: 99212 ==

== ENCOUNTER → 2022-02-14 13:55 | Outpatient (BNVA) | payer MEDICARE, MEDICAID, SELFPAY | PROVIDERS: PCP Physician Assistant; Visit Provider Nurse Practitioner Family | DX: Z13.89 Encounter for screening for other disorder (principal) ==

== ENCOUNTER → 2022-03-14 14:05 | Outpatient (BNVA) | payer MEDICARE, MEDICAID, SELFPAY | PROVIDERS: PCP Physician Assistant; Visit Provider Nurse Practitioner Family | DX: M96.1 Postlaminectomy syndrome, not elsewhere classified (principal); M47.816 Spondylosis without myelopathy or radiculopathy, lumbar region; Z79.891 Long term (current) use of opiate analgesic | CPT/HCPCS: 99212 ==

== ENCOUNTER → 2022-04-11 12:43 | Outpatient (BNVA) | payer MEDICARE, MEDICAID, SELFPAY | PROVIDERS: PCP Physician Assistant; Visit Provider Nurse Practitioner Family | DX: Z79.891 Long term (current) use of opiate analgesic (principal) | CPT/HCPCS: 99211 ==

== ENCOUNTER → 2022-05-09 12:46 | Outpatient (BNVA) | payer MEDICARE, MEDICAID, SELFPAY | PROVIDERS: PCP Physician Assistant; Visit Provider Nurse Practitioner Family | DX: Z51.81 Encounter for therapeutic drug level monitoring (principal); F11.20 Opioid dependence, uncomplicated | CPT/HCPCS: 99211 ==

== ENCOUNTER 2022-06-09 12:41 | Outpatient (REF) | payer MEDICARE, MEDICAID, SELFPAY ==
--- NOTE | ~2022-06-09 | XR_ITS ---
EXAMINATION: XR FOOT, LEFT CLINICAL INFORMATION: Left foot pain COMPARISON: Prior radiograph not dated TECHNIQUE: AP, lateral, and oblique views of the left foot. FINDINGS: There is a nondisplaced intra-articular transverse fracture at the base of the 5th metatarsal. No additional fractures. No significant degenerative findings. XR/XR foot LT min 3V IMPRESSION: Nondisplaced fracture at the base of the 5th metatarsal.
== END 2022-06-09 12:42 | disposition home or self-care (01) ==
LOC: HO.HOSX 12:41
PROVIDERS: Visit Provider Physician Assistant
DX: S92.352A Displaced fracture of fifth metatarsal bone, left foot, initial encounter for closed fracture (principal)
CPT/HCPCS: 73630; 99202

== ENCOUNTER → 2022-06-12 14:56 | Outpatient (BNVA) | payer MEDICARE, MEDICAID, SELFPAY | PROVIDERS: PCP Physician Assistant; Visit Provider Nurse Practitioner Family | DX: Z51.81 Encounter for therapeutic drug level monitoring (principal); F11.20 Opioid dependence, uncomplicated; M96.1 Postlaminectomy syndrome, not elsewhere classified; M47.816 Spondylosis without myelopathy or radiculopathy, lumbar region | CPT/HCPCS: 99212 ==

== ENCOUNTER 2022-07-07 12:05 | Outpatient (REF) | payer MEDICARE, MEDICAID, SELFPAY ==
--- NOTE | ~2022-07-07 | XR_ITS ---
EXAMINATION:XR foot LT min 3V VIEWS ACQUIRED: Frontal lateral and oblique CLINICAL INFORMATION: Pain COMPARISON: None available at the time of this dictation. FINDINGS: There are nondisplaced fractures through the base of the fourth and fifth metatarsals.. Intertarsal, tarsometatarsal, metatarsophalangeal and interphalangeal joints are intact. Surrounding soft tissues is normal. , Tiny posterior calcaneal spur. XR/XR foot LT min 3V IMPRESSION: *Nondisplaced transverse fractures at the base of the fourth and fifth metatarsal bones. (Referring physician staff is being called, to be alerted of the above findings and recommendations.) CM
== END 2022-07-07 12:06 | disposition home or self-care (01) ==
LOC: HO.HOSX 12:05
PROVIDERS: Visit Provider Physician Assistant
DX: S92.352D Displaced fracture of fifth metatarsal bone, left foot, subsequent encounter for fracture with routine healing (principal); M18.12 Unilateral primary osteoarthritis of first carpometacarpal joint, left hand; X58.XXXD Exposure to other specified factors, subsequent encounter
CPT/HCPCS: 20600; 73630; 99212; J1020

== ENCOUNTER → 2022-07-11 14:51 | Outpatient (BNVA) | payer MEDICARE, MEDICAID, SELFPAY | PROVIDERS: PCP Physician Assistant; Visit Provider Nurse Practitioner Family | DX: Z51.81 Encounter for therapeutic drug level monitoring (principal); F11.20 Opioid dependence, uncomplicated | CPT/HCPCS: 99211 ==

== ENCOUNTER → 2022-08-08 13:59 | Outpatient (BNVA) | payer MEDICARE, MEDICAID, SELFPAY | PROVIDERS: PCP Physician Assistant; Visit Provider Nurse Practitioner Family | DX: Z51.81 Encounter for therapeutic drug level monitoring (principal); F11.20 Opioid dependence, uncomplicated | CPT/HCPCS: 99211 ==

== ENCOUNTER → 2022-08-19 12:40 | Outpatient (BNVA) | payer MEDICARE, MEDICAID, SELFPAY | PROVIDERS: PCP Physician Assistant; Referring Provider Physician Assistant; Visit Provider Internal Medicine Cardiovascular Disease | DX: Z45.02 Encounter for adjustment and management of automatic implantable cardiac defibrillator (principal); I50.20 Unspecified systolic (congestive) heart failure; I25.10 Atherosclerotic heart disease of native coronary artery without angina pectoris | CPT/HCPCS: 99212 ==

== ENCOUNTER → 2022-09-02 15:51 | Outpatient (BNVA) | payer MEDICARE, MEDICAID, SELFPAY | PROVIDERS: PCP Physician Assistant; Visit Provider Nurse Practitioner Family | DX: M96.1 Postlaminectomy syndrome, not elsewhere classified (principal); M47.816 Spondylosis without myelopathy or radiculopathy, lumbar region; Z79.891 Long term (current) use of opiate analgesic | CPT/HCPCS: 99212 ==

== ENCOUNTER → 2022-09-30 15:26 | Outpatient (BNVA) | payer MEDICARE, MEDICAID, SELFPAY | PROVIDERS: PCP Physician Assistant; Visit Provider Nurse Practitioner Family | DX: Z51.81 Encounter for therapeutic drug level monitoring (principal); F11.20 Opioid dependence, uncomplicated | CPT/HCPCS: 99211 ==

== ENCOUNTER 2022-10-07 13:31 | Outpatient (REF) | payer MEDICARE, MEDICAID, SELFPAY ==
--- NOTE | ~2022-10-07 | MM_ITS ---
EXAMINATION: MM SCREENING DIGITAL BREAST TOMOSYNTHESIS, BILATERAL CLINICAL INFORMATION: Screening. Asymptomatic. The lifetime risk of breast cancer based on the Tyrer-Cuzick Model is 4%. COMPARISON: Mammography: 03/05/2021, 06/28/2019, 05/07/2018 TECHNIQUE: Digital breast tomosynthesis is performed in both the craniocaudal and mediolateral oblique views along with computer-aided detection (CAD). Synthesized 2D images are generated from the tomosynthesis. Additional left MLO view is provided. FINDINGS: There are scattered areas of fibroglandular density (ACR BI-RADS breast composition Category b). There are no significant masses, abnormal calcifications, or other abnormalities. Parenchymal pattern is similar to prior studies. There is no developing density or architectural abnormality. Pacemaker generator overlies and partly obscures the left axilla right MLO view. The skin contours are unremarkable. No significant changes. MM/MM tomosynthesis screening BI IMPRESSION: No mammographic evidence of malignancy. ASSESSMENT: BI-RADS 2: Benign RECOMMENDATION: Routine annual mammography screening. This patient's information was entered into a reminder system with a target due date for their next mammogram.
== END 2022-10-07 13:32 | disposition home or self-care (01) ==
LOC: HO.MAMMO 13:31
PROVIDERS: PCP Physician Assistant; Visit Provider Physician Assistant
DX: Z12.31 Encounter for screening mammogram for malignant neoplasm of breast (principal)
CPT/HCPCS: 77063; 77067

== ENCOUNTER → 2022-11-04 13:20 | Outpatient (BNVA) | payer MEDICARE, MEDICAID, SELFPAY | PROVIDERS: PCP Physician Assistant; Visit Provider Nurse Practitioner Family | DX: M47.816 Spondylosis without myelopathy or radiculopathy, lumbar region (principal); M96.1 Postlaminectomy syndrome, not elsewhere classified; Z79.891 Long term (current) use of opiate analgesic | CPT/HCPCS: 99212 ==

== ENCOUNTER → 2022-12-02 11:37 | Outpatient (BNVA) | payer MEDICARE, MEDICAID, SELFPAY | PROVIDERS: PCP Physician Assistant; Visit Provider Nurse Practitioner Family | DX: M96.1 Postlaminectomy syndrome, not elsewhere classified (principal); M47.816 Spondylosis without myelopathy or radiculopathy, lumbar region; Z79.891 Long term (current) use of opiate analgesic | CPT/HCPCS: 99212 ==

== ENCOUNTER → 2022-12-30 12:50 | Outpatient (BNVA) | payer MEDICARE, MEDICAID, SELFPAY | PROVIDERS: PCP Physician Assistant; Visit Provider Nurse Practitioner Family | DX: M18.12 Unilateral primary osteoarthritis of first carpometacarpal joint, left hand (principal); M79.642 Pain in left hand; G89.29 Other chronic pain; M47.816 Spondylosis without myelopathy or radiculopathy, lumbar region; M96.1 Postlaminectomy syndrome, not elsewhere classified; Z79.891 Long term (current) use of opiate analgesic | CPT/HCPCS: 99212 ==

== ENCOUNTER → 2023-01-21 13:05 | Outpatient (BNVA) | payer MEDICARE, MEDICAID, SELFPAY | PROVIDERS: PCP Physician Assistant; Visit Provider Orthopaedic Surgery | DX: M18.12 Unilateral primary osteoarthritis of first carpometacarpal joint, left hand (principal) | CPT/HCPCS: 20600; J1020; Q3014 ==

== ENCOUNTER → 2023-01-23 13:49 | Outpatient (REF) | payer MEDICARE, MEDICAID, SELFPAY ==
--- NOTE | 2023-01-23 13:51 | CA_ITS ---
Transthoracic Echocardiogram Patient (Last, First, Middle): Lcui Grady, Gender: Female Date of : 1955 Age: 67 Procedure Date: 01/23/2023 Procedure Type: Transthoracic Echocardiogram Location: OP Height: 149. cm Weight: 49.44 kg BSA: 1.42 m2 Heart Rate: 46 bpm BP: 120 / 55 mmHg Fireworks Assembler: MILLER Referring MD: Maxwell Le MD Human Performance Technologist: Maxwell Le MD Symptoms: I50.20 - Unspecified systolic (congestive) heart failure Study Quality: Fair/Contrast ECG Rhythm: Sinus bradycardia Conclusions: - 1. [id number] LV systolic dysfunction with impaired relaxation filling pattern 2. Moderate RV systolic dysfunction 3. Mild mitral regurgitation 4. Normal RV systolic pressure 5. No pericardial effusion Findings Procedure Information Contrast agent, definity, is being given per protocol without apparent complications. Left Ventricle Normal left ventricular cavity size. The left ventricular systolic function is mild to moderately decreased. The visually estimated ejection fraction is between 40-45%. Spectral Doppler is indicative of an impaired relaxation filling pattern. E/E prime ratio is between 8 and 15 consistent with indeterminate filling pressures. Wall Motion Rest Echo Findings The mid anterior segment is hypokinetic. The inferoseptal wall, the apical anterior, apical inferior, apical septum, and mid anteroseptal segments are akinetic. The apex segment is dyskinetic. All other scored wall segments showed normal motion. Right Ventricle Normal right ventricular cavity size. There is moderately decreased right ventricular systolic function. There is an ICD wire seen in the right ventricle. Atria The left atrium is likely dilated. There is no evidence of interatrial shunt. The right atrium is normal in size. Aortic Valve There is mild calcification of the aortic valve. There is no aortic valve stenosis. There is no aortic valve regurgitation. Mitral Valve There is mild anterior and posterior mitral leaflet thickening. There is mild mitral annular calcification. There is mild mitral valve regurgitation. There is no mitral valve stenosis. Pulmonic Valve The pulmonic valve was not well visualized. Tricuspid Valve Likely normal tricuspid valve structure and function. There is mild tricuspid valve regurgitation. The right ventricular systolic pressure is normal. The right ventricular systolic pressure is 20 mmHg. Normal right atrial pressure. There is no evidence of pulmonary hypertension. Great Vessels All visible segments of the aorta are normal in size. The pulmonary artery was not well visualized. Venous The inferior vena cava is normal in size and collapses greater than 50% with inspiration. Pericardium/Pleural There is no evidence of pericardial effusion. Prior Study Comparison Changes noted compared to prior study dated: 12/25/2021. left atrial chamber size is measured to be smaller as well as mitral regurgitation appears to be mild Measurements 2D Linear Measurements IVSd: 0.67 0.6-0.9/0.6-1.0 cm LVIDd: 4.77 3.9-5.3/4.2-5.9 cm LVIDd Index: 3.36 2.4-3.2/2.2-3.1 cm/m2 LVIDs: 3.19 2.0-3.6 cm LVPWd: 0.82 0.7-1.1 cm LA Diam: 3.20 2.7-3.8/3.0-4.0 cm LAIDs Index: 2.25 1.5-2.3 cm/m2 LV Mass: 142.25 67-162/88-224 g LV Mass Index: 100.18 43-95/49-115 g/m2 LVOT Diam: 2.00 3.0+(-)1.3 cm 2D Systolic Function EF 4C: 44.80 >55% EF 2C: 48.00 >55% Mitral Valve MV Pk E: 0.44 MV PK A: 0.86 MV Decel Time: 545.00 E/A: 0.50 E'Lateral: 2.31 E'Medial: 2.87 E/E' Med: 15.40 E/E' Lat: 19.10 PHT: 160.00 MVA PHT: 1.38 Decel [place]: 0.81 Aortic Valve AoV Pk Eb: 1.19 AoV Mn Eb: 0.81 AoV VTI: 0.32 AoV Pk Grad: 6.00 Aov Mn Grad: 3.00 MONSE Cont.VTI: 2.15 LVOT LVOT Pk Eb: 0.94 LVOT Mn Eb: 0.57 LVOT VTI: 0.22 LVOT Pk Grad: 4.00 LVOT Mn Grad: 2.00 LVOT Diam: 2.00 LVOT Area: 3.14 Diastolic Function MV Pk E: 0.44 MV Pk A: 0.86 E/A: 0.50 E'Medial: 2.87 E/E' Med: 15.40 E' Laterial: 2.31 E/E' Lat: 19.10 Right Ventricle TAPSE (mm): 11.40 TVS' Eb: 5.62 Tricuspid Valve TR Pk Eb: 2.06 TR Pk Grad: 17.00 RA Press: 3.00 RVSP: 20.00 Great Vessels Aorta Sinus of Valsalva: 2.80 2.0-3.5 cm Ao Asc: 2.70 2.1-3.4 cm Pulmonary Valve PV Pk Eb: 0.81 Peak PV Grad: 3.00 Updated in Other Vendor System with Status of Final Maxwell Le MD electronically signed on 01/24/2023 12:54:02 PM with status of Final
== END ==
LOC: HO.CARD 13:49
PROVIDERS: PCP Physician Assistant; Visit Provider Internal Medicine Cardiovascular Disease
DX: I50.20 Unspecified systolic (congestive) heart failure (principal)
CPT/HCPCS: 93306; Q9957

== ENCOUNTER → 2023-01-27 12:54 | Outpatient (BNVA) | payer MEDICARE, MEDICAID, SELFPAY | PROVIDERS: PCP Physician Assistant; Visit Provider Nurse Practitioner Family | DX: M96.1 Postlaminectomy syndrome, not elsewhere classified (principal); M18.12 Unilateral primary osteoarthritis of first carpometacarpal joint, left hand; M79.642 Pain in left hand; M47.816 Spondylosis without myelopathy or radiculopathy, lumbar region; G89.29 Other chronic pain; Z79.891 Long term (current) use of opiate analgesic | CPT/HCPCS: 99212 ==

== ENCOUNTER 2023-02-09 10:53 | Outpatient (REF) | payer MEDICARE, MEDICAID, SELFPAY ==
[2023-02-09 12:13] LABS: Hematocrit 37.3 % (37.0-47.0); Hemoglobin 12.2 g/dl (12.0-16.0); Mean Corpuscular HGB Conc 32.7 g/dl (31.0-35.0); Mean Corpuscular Hemoglobin 29.1 pg (27.0-33.0); Mean Platelet Volume 10.1 fL (9.4-12.3); Platelet Count 196 X10*3/uL (160-400); Red Blood Count 4.19 X10*6/uL (4.20-5.50); Red Cell Distribution Width 14.6 % (11.0-16.0); White Blood Count 10.2 X10*3/uL (4.8-10.8)
[2023-02-09 12:39] LABS: Creatinine Urine 265.08 mg/dL; Microalbum/Creatinine Ratio Ur 72.8 ug/mg cr
[2023-02-09 12:43] LABS: B Type Natriuretic Peptide 286 pg/mL (<100)
[2023-02-09 12:51] LABS: Alanine Aminotransferase 9 U/L (0-31); Alkaline Phosphatase 96 U/L (39-117); Anion Gap 15 (12-20); Aspartate Amino Transferase 15 U/L (5-31); Blood Urea Nitrogen 14 mg/dL (9-16); Calcium 9.4 mg/dL (8.4-10.2); Carbon Dioxide 23 mmol/L (22-29); Chloride 107 mmol/L (96-108); Cholesterol 138 mg/dL; Estimated Glomerular Filt Rate 56; Glucose Fasting 110 mg/dL (60-99); Glucose Random 110 mg/dL (60-115); HDL Cholesterol 37 mg/dL; LDL Cholesterol Calculated 70 mg/dl; Potassium 4.9 mmol/L (3.3-5.1); Sodium 140 mmol/L (135-145); Triglycerides 157 mg/dL
[2023-02-09 13:10] LABS: TSH reflex Free T4 1.39 uIU/mL (0.32-4.0)
== END 2023-02-09 10:54 | disposition home or self-care (01) ==
LOC: HO.LAB 10:53
PROVIDERS: Absent Provider Internal Medicine Cardiovascular Disease; PCP Physician Assistant; Visit Provider Physician Assistant
DX: I50.20 Unspecified systolic (congestive) heart failure (principal); E78.2 Mixed hyperlipidemia
CPT/HCPCS: 36415; 80048; 80053; 80061; 82043; 83880; 84443; 85027

== ENCOUNTER 2023-02-18 10:26 | Outpatient (REF) | payer MEDICARE, MEDICAID, SELFPAY ==
--- NOTE | 2023-02-18 10:00 | EMG_ITS ---
Please see scanned EMG / Nerve Conduction Report. MTDD
== END 2023-02-18 10:27 | disposition home or self-care (01) ==
LOC: HO.NEURO 10:26
PROVIDERS: PCP Physician Assistant; Visit Provider Nurse Practitioner Family
DX: M79.642 Pain in left hand (principal); M18.12 Unilateral primary osteoarthritis of first carpometacarpal joint, left hand; G89.29 Other chronic pain
CPT/HCPCS: 95885; 95910

== ENCOUNTER → 2023-02-24 13:00 | Outpatient (BNVA) | payer MEDICARE, MEDICAID, SELFPAY | PROVIDERS: PCP Physician Assistant; Visit Provider Nurse Practitioner Family | DX: Z51.81 Encounter for therapeutic drug level monitoring (principal); F11.20 Opioid dependence, uncomplicated; M79.642 Pain in left hand; M96.1 Postlaminectomy syndrome, not elsewhere classified; M47.816 Spondylosis without myelopathy or radiculopathy, lumbar region; G89.29 Other chronic pain; Z79.891 Long term (current) use of opiate analgesic | CPT/HCPCS: 99212 ==

== ENCOUNTER → 2023-03-23 12:56 | Outpatient (BNVA) | payer MEDICARE, MEDICAID, SELFPAY | PROVIDERS: PCP Physician Assistant; Visit Provider Nurse Practitioner Family | DX: Z51.81 Encounter for therapeutic drug level monitoring (principal); F11.20 Opioid dependence, uncomplicated | CPT/HCPCS: 99211 ==

== ENCOUNTER → 2023-03-25 23:59 | Outpatient (BNV) | payer MEDICARE, MEDICAID, SELFPAY ==
--- NOTE | 2023-03-31 11:28 | A.OFFVIS_ITS ---
Intake Intake Visit Reasons: Remote ICD Check- [facility] Allergies sacubitril [From Entresto] Adverse Reaction (Severe, Verified 03/23/23 13:11) hyperkalemia valsartan [From Entresto] Adverse Reaction (Severe, Verified 03/23/23 13:11) hyperkalemia [facility] Medical History AAA (abdominal aortic aneurysm) Acute on chronic systolic (congestive) heart failure CAD (coronary artery disease) Cervical spondylosis CKD (chronic kidney disease) stage 3, GFR 30-59 ml/min COVID-19 vaccine series completed Failed back syndrome, lumbar Heart failure with reduced ejection fraction Hiatal hernia History of femoral angiogram History of placement of internal cardiac defibrillator Hx of myocardial infarction Hypertension Ischemic cardiomyopathy Lumbar spondylosis Peripheral vascular disease Surgical History Cardiac defibrillator in place History of biliary duct stent placement History of esophagogastroduodenoscopy (EGD) History of heart bypass surgery History of lumbar fusion History of open reduction and internal fixation (ORIF) procedure History of surgery 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 Sister Gynecologic cancer Social History Household Members: Family Household Members Other:: Son Housing: House Are you a primary clinical care manager to a significant other at home: No Do you presently have visiting nurse or other home services: No Alcohol intake: never Patient Tobacco Use Status: Former Tobacco user Quit Date: 09/21/16 Tobacco use type: Cigarette Years Smoked: 40 e-Cigarette/Vaping Use: Never Used Second Hand Smoke Exposure: No Substance Use Type: Marijuana Advance Directives Date on File: 07/06/21 service: No Current occupational status: disabled Cognitive needs: No Hearing needs: No Vision needs: Yes (Glasses) Office Procedures Cardiac Device Check Cardiac Device Check Details: Remote ICD report generated 03/25/2023. ICD function is adequate [id number] Cardiac Interrogation, implant defibrillator w/interim Procedure code (CPT) selection complete Coding Level of Care Code Procedure Only Diagnoses CPT Codes Cardiac Device Check - Cardiac Device 13: [id number] Cardiac Interrogation, implant defibrillator w/interim ([id number])
== END ==
PROVIDERS: PCP Physician Assistant; Visit Provider Internal Medicine Cardiovascular Disease
DX: I25.5 Ischemic cardiomyopathy (principal); Z95.810 Presence of automatic (implantable) cardiac defibrillator
CPT/HCPCS: 93295

== ENCOUNTER → 2023-04-20 23:59 | Outpatient (BNV) | payer MEDICARE, MEDICAID, SELFPAY ==
--- NOTE | 2023-04-22 14:40 | A.OFFVIS_ITS ---
Intake Intake Visit Reasons: Remote HF Monitoring- [facility] Allergies sacubitril [From Entresto] Adverse Reaction (Severe, Verified 03/23/23 13:11) hyperkalemia valsartan [From Entresto] Adverse Reaction (Severe, Verified 03/23/23 13:11) hyperkalemia [facility] Medical History AAA (abdominal aortic aneurysm) Acute on chronic systolic (congestive) heart failure CAD (coronary artery disease) Cervical spondylosis CKD (chronic kidney disease) stage 3, GFR 30-59 ml/min COVID-19 vaccine series completed Failed back syndrome, lumbar Heart failure with reduced ejection fraction Hiatal hernia History of femoral angiogram History of placement of internal cardiac defibrillator Hx of myocardial infarction Hypertension Ischemic cardiomyopathy Lumbar spondylosis Peripheral vascular disease Surgical History Cardiac defibrillator in place History of biliary duct stent placement History of esophagogastroduodenoscopy (EGD) History of heart bypass surgery History of lumbar fusion History of open reduction and internal fixation (ORIF) procedure History of surgery 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 Sister Gynecologic cancer Social History Household Members: Family Household Members Other:: Son Housing: House Are you a primary progressive care unit registered nurse to a significant other at home: No Do you presently have visiting nurse or other home services: No Alcohol intake: never Patient Tobacco Use Status: Former Tobacco user Quit Date: 09/21/16 Tobacco use type: Cigarette Years Smoked: 40 e-Cigarette/Vaping Use: Never Used Second Hand Smoke Exposure: No Substance Use Type: Marijuana Advance Directives Date on File: 07/06/21 service: No Current occupational status: disabled Cognitive needs: No Hearing needs: No Vision needs: Yes (Glasses) Office Procedures Cardiac Device Check Cardiac Device Check Details: Remote heart failure report generated 04/20/2023. Heart failure parameters are stable [id number] Cardiac Device Interrogation, cardio physiologic monitor Procedure code (CPT) selection complete Coding Level of Care Code Procedure Only Diagnoses CPT Codes Cardiac Device Check - Cardiac Device 15: [id number] Cardiac Device Interrogation, cardio physiologic monitor ([id number])
== END ==
PROVIDERS: PCP Physician Assistant; Visit Provider Internal Medicine Cardiovascular Disease
DX: I50.20 Unspecified systolic (congestive) heart failure (principal); Z95.810 Presence of automatic (implantable) cardiac defibrillator
CPT/HCPCS: 93297

== ENCOUNTER 2023-04-27 12:53 | Outpatient (REF) | payer MEDICARE, MEDICAID, SELFPAY ==
--- NOTE | ~2023-04-27 | XR_ITS ---
EXAMINATION: XR LUMBOSACRAL SPINE WITH OBLIQUES CLINICAL INFORMATION: Postlaminectomy syndrome. COMPARISON: Radiographs dated 05/10/2019. TECHNIQUE: AP, both oblique, and lateral (neutral, flexion and extension) views of the lumbar spine. Lateral view of the lumbosacral junction. FINDINGS: There is bony demineralization. At L3-L4, there is a 4 mm anterolisthesis. There is well-maintained alignment status-post L4-L5 posterior fusion and discectomy, with intact posterior fixator rods, pedicular screws and disc spacer. No hardware failure or loosening is seen. There is no acute fracture or spondylolisthesis. No instability is seen with flexion or extension. No spondylolysis defect is seen on the oblique views. There are aortoiliac atherosclerotic calcifications. Iliac stent material is noted. XR/XR lumbar spine 6V w bending IMPRESSION: 1. There is well-maintained alignment status-post L4-L5 posterior fusion and discectomies. No hardware failure or loosening is seen. 2. There is mild degenerative disc disease at L3-L4. 3. No instability is seen with flexion or extension.
--- NOTE | ~2023-04-27 | XR_ITS ---
EXAMINATION: XR SACROILIAC JOINTS CLINICAL INFORMATION: Sacrococcygeal disorders. COMPARISON: Hip radiographs dated 06/19/2021 and 11/06/2017. TECHNIQUE: AP and bilateral Judet views of the sacroiliac joints FINDINGS: Bones and soft tissues are normal. No fracture. Alignment is anatomic. Sacroiliac joint spaces are well-maintained without erosions or surrounding sclerosis. The acetabular joint spaces are well-maintained. The pubic symphysis is intact. Lumbar orthopedic hardware and right iliac stent material are noted. XR/XR sacroiliac joint min 3V IMPRESSION: Normal sacroiliac joints.
== END 2023-04-27 12:54 | disposition home or self-care (01) ==
LOC: HO.XRAY 12:53
PROVIDERS: PCP Physician Assistant; Visit Provider Nurse Practitioner Family
DX: M96.1 Postlaminectomy syndrome, not elsewhere classified (principal); M53.3 Sacrococcygeal disorders, not elsewhere classified; M47.816 Spondylosis without myelopathy or radiculopathy, lumbar region; Z79.891 Long term (current) use of opiate analgesic
CPT/HCPCS: 72114; 72202; 99212

== ENCOUNTER 2023-04-27 12:53 | Outpatient (AMB) | payer MEDICARE, MEDICAID, SELFPAY ==
[2023-04-27 13:05] VITALS: BP 151/71; PULSE 82; O2SAT 95; BMI 21.2
--- NOTE | 2023-04-27 13:05 | A.OFFVIS_ITS ---
Intake Vital Signs 04/27/23 13:05 Height 4 ft 11 in Weight 105 lb BMI 21.2 BP 151/71 H Blood Pressure Location Rt brachial Position Sitting Pulse 82 Pulse Source Pulse Oximeter Pulse Oximetry (%) 95 Oxygen Delivery Method Room Air Intake Visit Reasons: Pill count Intake Note: Lcui comes in today for a pill count to oxycodone, patient should have 68 tablets and presents with 74 tablets which she last took today 04/27/23 at 8am. Pain today 04/30. 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 Patient is supposed to have #68 pills, in her possession has #78 pills. This demonstrates a responsible attitude in regards to the medication regimen. She reports mild to moderate analgesia, with no noted side effects. Patient denies any fever, dizziness, chest pain, abdominal or groin pain, constipation, nausea, sedation, dizziness, or urinary retention. Patient states she has an increased ability to perform activities of daily living, interact socially and be more functional. Patient reports left sided buttock radiating into her left lateral hip. Worse with sitting or changing positions from sitting to standing. Patient is considering interventional therapy for her left sided back pain as this has been worsening for the past 3 months. Will update her imaging prior to interventional treatments. [facility] Medical History AAA (abdominal aortic aneurysm) Acute on chronic systolic (congestive) heart failure CAD (coronary artery disease) Cervical spondylosis CKD (chronic kidney disease) stage 3, GFR 30-59 ml/min COVID-19 vaccine series completed Failed back syndrome, lumbar Heart failure with reduced ejection fraction Hiatal hernia History of femoral angiogram History of placement of internal cardiac defibrillator Hx of myocardial infarction Hypertension Ischemic cardiomyopathy Lumbar spondylosis Peripheral vascular disease Surgical History Cardiac defibrillator in place History of biliary duct stent placement History of esophagogastroduodenoscopy (EGD) History of heart bypass surgery History of lumbar fusion History of open reduction and internal fixation (ORIF) procedure History of surgery 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 Sister Gynecologic cancer Social History Household Members: Family Household Members Other:: Son Housing: House Are you a primary outdoor emergency care technician to a significant other at home: No Do you presently have visiting nurse or other home services: No Alcohol intake: never Patient Tobacco Use Status: Former Tobacco user Quit Date: 09/21/16 Tobacco use type: Cigarette Years Smoked: 40 e-Cigarette/Vaping Use: Never Used Second Hand Smoke Exposure: No Substance Use Type: Marijuana Advance Directives Date on File: 07/06/21 service: No Current occupational status: disabled Cognitive needs: No Hearing needs: No Vision needs: Yes (Glasses) Review of Systems Const All systems reviewed & are unremarkable except as noted in HPI and below Physical Exam Vital Signs: Last Vital Signs Pulse 82 04/27/23 13:05 BP 151/71 H 04/27/23 13:05 Pulse Ox 95 04/27/23 13:05 Oxygen Delivery Method Room Air 04/27/23 13:05 BMI result Body Mass Index 21.2 On exam today: Appears afebrile. Alert and oriented. Mood and affect appropriate. Follows and participates in conversation appropriately. Respiratory effort is unlabored. Able to transition from sit to stand unassisted. Back/Spine/Pelvis Other: Lumbar extension and flexion reproduces pain. Facet loading is positive bilaterally. Localized tenderness in the projections of left SIJ area. Increased left buttock and left lateral pain with Jimbo's, Stinchfield, Gaenslen and Pelvic compression tests on the left. Back: back tenderness Cervical Spine: cervical ROM normal and No Cervical spine tenderness Thoracic/Lumbar Spine: thoracic and lumbar spine normal to inspection, Thoracic/lumbar spine scar(s), straight leg raise negative bilaterally, Lasegue's sign positive on the left and diffuse, pain with thoraco-lumbar ROM, thoraco-lumbar ROM limited, No thoracic spinal tenderness and lumbar spinal tenderness Pelvis: buttock tenderness on the left Sacroiliac joints: on the right nontender and on the left tender to palpation Psych Appearance: grossly normal and well kempt Mental Status: mental status grossly normal Speech and movement: Normal speech and movement present and Clear speech present Affect: normal affect Attitude: cooperative Thought process: Normal thought process present Thought content: Normal thought content present, suicidality (none), no hallucinations and No Depressive thoughts present Insight: Good insight present (Psych) Judgement: Good judgement present (Psych) Results Reviewed Results Reviewed: XR HIP, LEFT 06/19/21 CLINICAL INFORMATION: Left groin pain status post surgery FINDINGS: No fracture or dislocation. The left hip is well aligned. Joint space maintained with subchondral sclerosis. The visualized left hemipelvis is intact. Skin elaina overlie the left inguinal region. Prominent vascular calcifications. IMPRESSION: No acute osseous abnormality with mild degenerative changes of the hip. XR LUMBOSACRAL SPINE, INCLUDING BENDING VIEWS 05/18/2019 FINDINGS: The lumbar vertebra have normal height. The disc spaces are well-preserved at T12-L1, L1-L2 and L2-L3. At L3-L4, there is mild disc space narrowing and apparent mild facet arthropathy. The 0.4 cm of anterolisthesis of L3 on L4 increases to 0.6 cm on flexion and decreases to 0.3 cm on extension. This grade 1 anterolisthesis at L3-L4 is new compared to 11/16/2015. Interval posterior fusion of L4-L5. The fusion rods and transpedicular screws are intact. No hardware loosening. There is chronic depression of the anterosuperior endplate of L5. Metallic markers outline bone graft placed in the L4-5 disc space. Atherosclerotic calcification of peripheral vessels. The right common and external iliac artery stents are new compared to 0 11/16/2015. Within the chest, the single lead AICD is partially included in the [id number]. IMPRESSION: - Status post L4-L5 spinal fusion without postoperative complication. Alignment is normal at L4-L5. - The mild disc space narrowing and grade 1 anterolisthesis at L3-L4 are new findings compared to 11/16/2015. Assessment & Plan Assessment & Plan (1) Failed back syndrome, lumbar: Code(s): M96.1 - Postlaminectomy syndrome, not elsewhere classified (2) Sacroiliac joint pain: Code(s): M53.3 - Sacrococcygeal disorders, not elsewhere classified (3) Lumbar spondylosis: Code(s): M47.816 - Spondylosis without myelopathy or radiculopathy, lumbar region (4) Opioid contract exists: Code(s): Z79.891 - senior care (current) use of opiate analgesic Plan Patient has shown accountability for her medication regimen and the pill counts were accurate. There is no evidence of misuse, abuse or diversion at this time. Ramses reviewed. She is aware of monitoring for side effects. I will send her oxycodone 5 mg QID prn with advanced date of 05/15/23. Will check lumbar spine and SIJ imaging due to increase in right sided pain, will consider i nterventional treatments based on the results. Patient's exam is consistent with post laminectomy and right SIJ pain. All questions were answered and the patient is in agreement with the plan. Will follow up in 4 weeks for a pill count or sooner if needed. Orders: Orders XR sacroiliac joint min 3V Today M53.3 - Sacrococcygeal disorders, not elsewhere classified, M96.1 - Postlaminectomy syndrome, not elsewhere classified XR lumbar spine 6V w bending Today M96.1 - Postlaminectomy syndrome, not elsewhere classified Medications: Refilled oxycodone Partial Fill upon patient request. 5 mg PO QID PRN 120 tabs 0RF pain (scale score 7-10) 30 days M47.816 - Spondylosis without myelopathy or radiculopathy, lumbar region, M96.1 - Postlaminectomy syndrome, not elsewhere classified, Z79.891 - manager intermediate (current) use of opiate analgesic Coding Level of Care Code Est Pt Level 4 (74597) Diagnoses Failed back syndrome, lumbar M96.1 Sacroiliac joint pain M53.3 Lumbar spondylosis M47.816 Opioid contract exists Z79.891
== END 2023-04-27 13:16 | disposition home or self-care (01) ==
PROVIDERS: PCP Physician Assistant; Visit Provider Nurse Practitioner Family
DX: M96.1 Postlaminectomy syndrome, not elsewhere classified (principal); M53.3 Sacrococcygeal disorders, not elsewhere classified; M47.816 Spondylosis without myelopathy or radiculopathy, lumbar region; Z79.891 Long term (current) use of opiate analgesic
CPT/HCPCS: 99214

== ENCOUNTER 2023-05-07 13:59 | Outpatient (AMB) | payer MEDICARE, MEDICAID, SELFPAY ==
[2023-05-07 14:02] VITALS: BP 112/60; PULSE 58; O2SAT 98; BMI 21.1
--- NOTE | 2023-05-07 14:02 | MHC.PC.OV ---
Vital Signs 05/07/23 14:02 Height 4 ft 11 in Weight 104 lb 6 oz BMI 21.1 BP 112/60 Blood Pressure Location Lt brachial Position Sitting Pulse 58 Pulse Source Pulse Oximeter Pulse Oximetry (%) 98 Oxygen Delivery Method Room Air Intake Visit Reasons: f/u CAD/ HTN Allergies sacubitril [From Entresto] Adverse Reaction (Severe, Verified 05/07/23 14:08) hyperkalemia valsartan [From Entresto] Adverse Reaction (Severe, Verified 05/07/23 14:08) hyperkalemia Medication List - Last Reconciled 05/07/23 by Iron Jin PA-C alendronate 70 mg PO QWEEK aspirin (Adult Low Dose Aspirin) 81 mg PO DAILY atorvastatin 80 mg PO DAILY calcium carbonate (Oyster Shell Calcium) 500 mg PO DAILY 90 days diphenoxylate-atropine 2.5-0.025 mg 1 tab PO BID PRN 30 days ezetimibe (Zetia) 10 mg PO DAILY 90 days furosemide 20 mg PO DAILY hydroxyzine HCl 20 mg (2 x 10 mg) PO BEDTIME 30 days metoprolol succinate ER 50 mg PO DAILY oxycodone 5 mg PO QID PRN 30 days rivaroxaban (Xarelto) 2.5 mg PO BID Tobacco use date assessed: 09/24/22 Dental Screening Dental Screen Date: 05/07/23 Did you have a dental visit in the last 12 months?: No Did you have a dental problem in the last 6 months where you did not have access to dental care?: No Was dental information given to patient?: Patient declined HPI f/u CAD/ HTN HPI Details Patient is a 67-ye ar-old female here today for a f/u v isit. ? Patient deluca s a past medical h istory significant for coronary adair ry disease, failed back syndrome, alexa mbar spondylosis, depression home a peripheral artery disease, carotid s tenosis, hypertens ion. Concerns--> she continues to h ave difficulties w ith sleep.? She re ports she has been using trazodone 5 0 mg though had deluca s hangover effect with this medicati on. She will try to reduce her dose to 25 mg. Did di scuss vbrm-uos-[id number] nter sleeping aids as well to be use d Coronary artery disease :? Has st ent placed and sin ce has had more en ergy and less ches t discomforts. ? 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 Sh e has been transit ion to anticoagula tion therapy.? She denies any overt signs of bleeding. Advised to get fa sting lipids done to evaluate her LD L .. Failed back syndrome:? .? Cont inues on chronic n arcotic medication through [facility].? Deluca s been responsible with pill counts and urine drug scr eens. Recent x-ra ys of her lumbar s pine and pelvis sh owing no hardware failure, SI joint normal.? She repor ts she continues t o have pain over h er left lateral hi p in lower buttock area. Unable to take NSAID due to being on anticoagu lation. Laboratory Tests 02/09/23 02/09/23 11:04 11:06 Creatinine 0.99 LDL Cholesterol, C alc 70 TSH 1.39 Urine Microalbumin 193.0 PFSH Medical History AAA (abdominal aortic aneurysm) Acute on chronic systolic (congestive) heart failure CAD (coronary artery disease) Cervical spondylosis CKD (chronic kidney disease) stage 3, GFR 30-59 ml/min COVID-19 vaccine series completed Failed back syndrome, lumbar Heart failure with reduced ejection fraction Hiatal hernia History of femoral angiogram History of placement of internal cardiac defibrillator Hx of myocardial infarction Hypertension Ischemic cardiomyopathy Lumbar spondylosis Peripheral vascular disease Surgical History Cardiac defibrillator in place History of biliary duct stent placement History of esophagogastroduodenoscopy (EGD) History of heart bypass surgery History of lumbar fusion History of open reduction and internal fixation (ORIF) procedure History of surgery 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 Sister Gynecologic cancer Social History Household Members: Family Household Members Other:: Son Housing: House Are you a primary care asst to a significant other at home: No Do you presently have visiting nurse or other home services: No Alcohol intake: never Patient Tobacco Use Status: Former Tobacco user Quit Date: 09/21/16 Tobacco use type: Cigarette Years Smoked: 40 e-Cigarette/Vaping Use: Never Used Second Hand Smoke Exposure: No Substance Use Type: Marijuana Advance Directives Date on File: 07/06/21 service: No Current occupational status: disabled Cognitive needs: No Hearing needs: No Vision needs: Yes (Glasses) Questionnaire PHQ-9 Over the last 2 weeks, how often have you been bothered by any of the following problems? 1. Little interest or pleasure in doing things: not at all 2. Feeling down, depressed, or hopeless: not at all 3. Trouble falling or staying asleep, or sleeping too much: not at all 4. Feeling tired or having little energy: not at all 5. Poor appetite or overeating: not at all 6. Feeling bad about yourself - or that you are a failure or have let yourself or your family down: not at all 7. Trouble concentrating on things, such as reading the newspaper or watching television: not at all 8. Moving or speaking so slowly that other people could have noticed. Or the opposite - being so fidgety or restless that you have been moving around a lot more than usual: not at all 9. Thoughts that you would be better off or of hurting yourself in some way: not at all Total score: 0 Depression Screening Interpretation: Negative 69761 - PHQ-9 Billing: Yes Source: Developed by Drs. Unruly Jones, Yanna Perez, Mckay Doty and colleagues, with an educational dave from [employer]. Thrive Questionnaire Date Thrive assessed: 09/24/22 I am a: Patient What is your living situation today?: I have a steady place to live Within the past 12 months, did the food you bought not last and you didn't have the money to get more?: Never true Within the past 12 months, did you worry whether your food would run out before you got money to buy more?: Never true Do you have trouble paying for medicines?: No Do you have trouble getting transportation to medical appointments?: No Do you have trouble paying your heating and electricity bill?: No Do you have trouble taking care of your child, family member or friend?: No Do you have trouble with day-to-day activities such as bathing, preparing meals, shopping, managing finances, etc.?: No Are you currently unemployed and looking for a job?: No Are you interested in more education?: No Currently or been in a relationship where the following occur: no concerns reported AUDIT C Alcohol Use Questionnaire (AUDIT-C) 1. How often do you have a drink containing alcohol?: Never 3. How often do you have six or more drinks on one occasion?: Never Total Score: 0 ALLA-7 AMB Questionnaire ALLA-7 Date ALLA - 7 assessed: 09/24/22 Feeling nervous, anxious, or on edge: 0 = Not at all Not being able to stop or control worryin = Not at all Worrying too much about different things: 0 = Not at all Trouble relaxin = Not at all Being so restless that it is hard to sit still: 0 = Not at all Becoming easily annoyed or irritable: 0 = Not at all Feeling afraid as if something awful might happen: 0 = Not at all Total ALLA-7 score (0-4 normal; 5-9 mild; 10-14 moderate; 15-21 severe): 0 Source: Developed by Drs. Unruly Jones, Yanna Perez, Mckay Doty and colleagues, with an educational dave from [employer]. ALLA-7 Assessment Billing ALLA-7 Assessment Tool: ALLA-7 Assessment 63641 Review of Systems Const Denies headache(s) Eyes Denies loss of vision ENT Denies vertigo, Denies dizziness, Denies headache(s) and Denies sore throat Card Denies chest pain, Denies leg edema and Denies lightheadedness Resp Denies cough, Denies hemoptysis and Denies wheezing GI Denies abdominal pain, Denies melena, Denies constipation, Denies diarrhea and Denies vomiting Denies urinary frequency, Denies dysuria and Denies urinary urgency Musc Reports back pain, Denies arthralgias, Denies joint swelling, Denies numbness and Denies tingling Neuro Denies Abnormal speech present, Denies behavioral changes, Denies vertigo, Denies dizziness, Denies headache(s), Denies loss of vision, Denies memory loss, Denies numbness and Denies tingling Psych Denies anxiety, Denies behavioral changes, Denies depression, Denies memory loss and Denies panic attacks Kalia/Lymph Denies easy bleeding and Denies easy bruising Aller/Immun Denies wheezing Physical exam (Primary Care) Vital Signs: Last Vital Signs Pulse 58 05/07/23 14:02 BP 112/60 05/07/23 14:02 Pulse Ox 98 05/07/23 14:02 Oxygen Delivery Method Room Air 05/07/23 14:02 BMI result Body Mass Index 21.1 Tobacco/Smoking Status: Tobacco use Status Tobacco use date assessed 09/24/22 05/07/23 14:06 Patient Tobacco Use Status Former Tobacco user 05/07/23 14:06 Tobacco use type Cigarette 05/07/23 14:06 e-Cigarette/Vaping Use Never Used 05/07/23 14:06 PHQ-9: PHQ-9 Score PHQ-9: Total score 0 05/07/23 14:06 Depression Screening Interpretation: Negative Thrive Assessment: Date of Thrive Assessment Date Thrive assessed 09/24/22 05/07/23 14:06 Currently or been in a relationship where the following occur: no concerns reported Const General: healthy appearing, no acute distress, alert and awake Nutritional Appearance: well nourished Orientation/consciousness: oriented to person, oriented to place and oriented to time HENMT Ears: TM's normal bilaterally General nose exam: Normal nasal mucous membranes and turbinates present Eyes Conjunctivae: conjunctivae normal Sclerae: sclerae normal Pupils: Equal, round and reactive pupils present Neck Neck: Yes no lymphadenopathy and Yes no JVD Thyroid: Thyroid normal Carotids: no bruits Resp Effort & Inspection: normal respiratory effort and not tachypneic Auscultation: no crackles, no rales, no rhonchi and no wheezes Cardio Rate: regular rate Rhythm: regular rhythm Heart sounds: no murmurs and normal S1 and S2 GI Palpation (GI): Soft to palpation, nontender, no hepatomegaly and no splenomegaly Auscultation: normal bowel sounds Skin General skin exam: no rashes or lesions noted and dry skin Neuro General: oriented to person, oriented to place and oriented to time Cranial nerves: Yes Equal, round and reactive pupils present Speech: No Abnormal speech present Gait exam (Neuro): Normal gait present Motor exam (neuro): no tremor noted Extrem Right upper extremity: full ROM Left upper extremity: full ROM Right lower extremity: full ROM; no edema Left lower extremity: full ROM; no edema Psych Mental Status: mental status grossly normal Speech and movement: Normal speech and movement present Affect: normal affect Attitude: cooperative Thought process: Normal thought process present Assessment and Plan Assessment & Plan (1) CAD (coronary artery disease): Comment: Sees Dr Rodriguez Code(s): I25.10 - Atherosclerotic heart disease of [place] coronary artery without angina pectoris Qualifiers: Associated angina: without angina Coronary Disease-Associated Artery/Lesion type: [place] artery [place] vs. transplanted heart: [place] heart Qualified Code(s): I25.10 - Atherosclerotic heart disease of [place] coronary artery without angina pectoris Plan: Continues to follow cardiology. Most recent lipid panel showing excellent control over total cholesterol and LDL. No eyes denies any chest discomfort, dizziness. (2) Impaired glucose metabolism: Code(s): R73.09 - Other abnormal glucose Plan: Noted elevated fasting blood sugar. She has been reporting polyuria and polydipsia. Will check an A1c to evaluate for diabetes. (3) Polyuria: Code(s): R35.89 - Other polyuria Plan: As above reporting polyuria in the setting of having elevated fasting blood sugars. Will check an A1c to evaluate for diabetes. Other considerations were made to possibly be treated for spastic bladder (4) Sacroiliac joint pain: Code(s): M53.3 - Sacrococcygeal disorders, not elsewhere classified (5) Heart failure with reduced ejection fraction: Code(s): I50.20 - Unspecified systolic (congestive) heart failure Plan: Patient continues to be euvolemic on physical exam today. Has furosemide available to her though has not been taking it over the last month due to having polyuria already. (6) MDD (major depressive disorder), recurrent episode, moderate: Code(s): F33.1 - Major depressive disorder, recurrent, moderate Plan: Patient's PHQ-9 score showing negative for depression. Having trouble sleeping and would like meds to help her sleep. Orders: Orders Comprehensive [facility]. Panel Fast Today I25.10 - Atherosclerotic heart disease of [place] coronary artery without angina pectoris Hemoglobin A1c Today R73.09 - Other abnormal glucose Lipid Panel Today I25.10 - Atherosclerotic heart disease of [place] coronary artery without angina pectoris Complete Blood Count no Diff Today I25.10 - Atherosclerotic heart disease of [place] coronary artery without angina pectoris UA CC w/rflx Micro + Cult Today R30.0 - Dysuria, R35.89 - Other polyuria Medications: New prednisone 10 mg PO DAILY 10 days 10 tabs 0RF M53.3 - Sacrococcygeal disorders, not elsewhere classified Coding Level of Care Code Est Pt Level 4 (81224) Diagnoses CAD (coronary artery disease) I25.10 Associated angina: without angina Coronary Disease-Associated Artery/Lesion type: [place] artery [place] vs. transplanted heart: [place] heart Impaired glucose metabolism R73.09 Polyuria R35.89 Sacroiliac joint pain M53.3 Heart failure with reduced ejection fraction I50.20 MDD (major depressive disorder), recurrent episode, moderate F33.1 Additional Codes ALLA-7 Assessment Billing - ALLA-7 Assessment Tool: ALLA-7 Assessment 62004 ([id number])
== END 2023-05-07 14:48 | disposition home or self-care (01) ==
PROVIDERS: Visit Provider Physician Assistant
DX: I25.10 Atherosclerotic heart disease of native coronary artery without angina pectoris (principal); I50.20 Unspecified systolic (congestive) heart failure; F33.1 Major depressive disorder, recurrent, moderate; R73.09 Other abnormal glucose; R35.89 Other polyuria; M53.3 Sacrococcygeal disorders, not elsewhere classified
CPT/HCPCS: 99214

== ENCOUNTER 2023-05-12 12:48 | Outpatient (AMB) | payer MEDICARE, MEDICAID, SELFPAY ==
[2023-05-12 12:50] VITALS: BP 110/68; PULSE 62; BMI 20.9
--- NOTE | 2023-05-12 12:50 | MHC.OFFVIS ---
Intake Vital Signs 05/12/23 12:50 Height 4 ft 11 in Weight 103 lb 9.876 oz BMI 20.9 BP 110/68 Blood Pressure Location Lt brachial Position Sitting Pulse 62 Intake Visit Reasons: 6 mth f/up and [facility] ck Intake Note: 6 month follow-up with [facility] check Legal Clerk Required: No Allergies sacubitril [From Entresto] Adverse Reaction (Severe, Verified 05/07/23 14:08) hyperkalemia valsartan [From Entresto] Adverse Reaction (Severe, Verified 05/07/23 14:08) hyperkalemia Medication List - Last Reconciled 05/12/23 by Maxwell Le MD alendronate 70 mg PO QWEEK aspirin (Adult Low Dose Aspirin) 81 mg PO DAILY atorvastatin 80 mg PO DAILY calcium carbonate (Oyster Shell Calcium) 500 mg PO DAILY 90 days diphenoxylate-atropine 2.5-0.025 mg 1 tab PO BID PRN 30 days ezetimibe (Zetia) 10 mg PO DAILY 90 days furosemide 20 mg PO DAILY hydroxyzine HCl 20 mg (2 x 10 mg) PO BEDTIME 30 days metoprolol succinate ER 50 mg PO DAILY oxycodone 5 mg PO QID PRN 30 days prednisone 10 mg PO DAILY 10 days rivaroxaban (Xarelto) 2.5 mg PO BID HPI HPI Comments History of Present Illness Details Luci comes for follow-up after a longer than 6 months. She has been doing well from cardiac perspective. No recent hospitalization related to heart failure. No sudden shortness of breath, orthopnea, PND. She has reduced her Lasix to 3 times a week and continues to do well. Remote heart failure monitoring shows preserved filling pressures. She denies any exertional angina. Takes all her medications. No bleeding issues or neurologic events. She has not had regular follow-up with vascular interventionalist for her peripheral vascular disease but has had ultrasound. Will review the copies. Blood pressures remained stable in systolic 110-120 range. [facility] Medical History AAA (abdominal aortic aneurysm) Acute on chronic systolic (congestive) heart failure CAD (coronary artery disease) Cervical spondylosis CKD (chronic kidney disease) stage 3, GFR 30-59 ml/min COVID-19 vaccine series completed Failed back syndrome, lumbar Heart failure with reduced ejection fraction Hiatal hernia History of femoral angiogram History of placement of internal cardiac defibrillator Hx of myocardial infarction Hypertension Ischemic cardiomyopathy Lumbar spondylosis Peripheral vascular disease Surgical History Cardiac defibrillator in place History of biliary duct stent placement History of esophagogastroduodenoscopy (EGD) History of heart bypass surgery History of lumbar fusion History of open reduction and internal fixation (ORIF) procedure History of surgery 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 Sister Gynecologic cancer Social History Household Members: Family Household Members Other:: Son Housing: House Are you a primary patient care to a significant other at home: No Do you presently have visiting nurse or other home services: No Alcohol intake: never Patient Tobacco Use Status: Former Tobacco user Quit Date: 09/21/16 Tobacco use type: Cigarette Years Smoked: 40 e-Cigarette/Vaping Use: Never Used Second Hand Smoke Exposure: No Substance Use Type: Marijuana Advance Directives Date on File: 07/06/21 service: No Current occupational status: disabled Cognitive needs: No Hearing needs: No Vision needs: Yes (Glasses) Review of Systems Const Denies chills, Denies fatigue, Denies fever(s), Denies frequent falls, Denies weakness, Denies weight gain and Denies weight loss ENT Denies dizziness Card Denies chest pain, Denies leg edema, Denies lightheadedness, Denies palpitations, Denies dyspnea, Denies dyspnea on exertion, Denies orthopnea and Denies other (loss of consciousness) Resp Denies cough, Denies dyspnea and Denies dyspnea on exertion GI Denies hematochezia and Denies change in stool character Musc Denies abnormal gait, Denies muscle weakness, Denies numbness, Denies radiating pain into limb and Denies tingling Neuro Denies abnormal gait, Denies dizziness, Denies frequent falls, Denies numbness, Denies tingling and Denies weakness Endo Denies fatigue and Denies palpitations Physical Exam Vital Signs: Last Vital Signs Pulse 62 08/22/23 12:50 BP 110/68 05/12/23 12:50 BMI result Body Mass Index 20.9 Const General: cooperative, comfortable, no acute distress, alert and awake Nutritional Appearance: thin and other (Frail elderly woman) Orientation/consciousness: patient oriented x3 Limitations: no limitations Neck Neck: Yes normal visual inspection and Yes no JVD Carotids: bruit Resp Effort & Inspection: normal respiratory effort Auscultation: clear to auscultation bilaterally, no rales, no rhonchi and no wheezes Cardio Rate: regular rate Rhythm: regular rhythm Heart sounds: S1 normal heart sound present, S2 normal heart sound present, no gallops, no murmurs and no rubs Peripheral pulses: other (Reduced pulses in the lower extremities) GI Inspection: Yes normal to inspection Skin General skin exam: no rashes or lesions noted and ecchymosis Neuro General: patient oriented x3 and no focal motor deficits Extrem Other: Right groin site with resolving ecchymosis, palpable femoral pulse noted, no bruit General: Yes normal to inspection and No no pedal edema Office Procedures Cardiac Device Check Cardiac Device Check Details: Single-chamber [facility] ICD in place. Programmed in VVI at 40 beats per minute. No arrhythmias detected. Ventricular pacing thresholds excellent and reprogrammed to enhance battery life. Ventricular sensing is excellent. Pacing and shock lead impedance is stable. Battery life is at about 5 years [id number] Cardiac Device Check, single lead implantable defibrillator Procedure code (CPT) selection complete EKG Details: EKG shows sinus bradycardia 48 beats per minute possible left atrial enlargement LVH with repolarization abnormality with also T-wave inversion in anterolateral leads [id number], Complete Assessment & Plan Assessment & Plan (1) Heart failure with reduced ejection fraction: Code(s): I50.20 - Unspecified systolic (congestive) heart failure Plan: Heart failure with reduced ejection fraction with [id number] LV systolic dysfunction. Clinically euvolemic and well compensated. Has done well since stenting of the LAD. Continue current metoprolol therapy for neurohormonal modulation as well as reducing ischemia. Has not tolerated renin angiotensin aldosterone antagonist due to hyperkalemia. Blood pressure is currently well optimized. Clinically euvolemic and well compensated. Will switch Lasix to p.r.n. basis. Advise management of heart failure in details. Advised to call me with worsening symptoms. Will also monitor for heart failure remotely. (2) CAD (coronary artery disease): Code(s): I25.10 - Atherosclerotic heart disease of [place] coronary artery without angina pectoris Qualifiers: Associated angina: without angina Coronary Disease-Associated Artery/Lesion type: [place] artery [place] vs. transplanted heart: [place] heart Qualified Code(s): I25.10 - Atherosclerotic heart disease of [place] coronary artery without angina pectoris Plan: CAD with remote surgical revascularization followed by LAD stenting for ischemic heart failure. Since then she has done very well. She also has diffuse and significant peripheral vascular disease. Continue aspirin along with low-dose anticoagulation to reduce cardiovascular and peripheral vascular events. Continue aggressive risk factor modification. Blood pressure is well optimized. Continue high-intensity statin therapy with target goal LDL less than 70 mg/dL. (3) ICD (implantable cardioverter-defibrillator) in place: Code(s): Z95.810 - Presence of automatic (implantable) cardiac defibrillator Plan: ICD in place, working well. Reprogrammed for adequate function. Follow-up remotely for heart failure as well as device check. Will follow up in the clinic in 6 months time, sooner p.r.n.. Thank you for allowing me to partake in her care Coding Level of Care Code Est Pt Level 4 (16000) Diagnoses Heart failure with reduced ejection fraction I50.20 CAD (coronary artery disease) I25.10 Associated angina: without angina Coronary Disease-Associated Artery/Lesion type: [place] artery [place] vs. transplanted heart: [place] heart ICD (implantable cardioverter-defibrillator) in place Z95.810 CPT Codes Cardiac Device Check - Cardiac Device 4: [id number] Cardiac Device Check, single lead implantable defibrillator ([id number]) EKG - CPT: 91406-[id number], Complete ([id number])
== END 2023-05-12 13:07 | disposition home or self-care (01) ==
PROVIDERS: PCP Physician Assistant; Referring Provider Physician Assistant; Visit Provider Internal Medicine Cardiovascular Disease
DX: I50.20 Unspecified systolic (congestive) heart failure (principal); I25.10 Atherosclerotic heart disease of native coronary artery without angina pectoris; Z95.810 Presence of automatic (implantable) cardiac defibrillator
CPT/HCPCS: 93282; 99214

== ENCOUNTER → 2023-05-12 12:48 | Outpatient (BNVA) | payer MEDICARE, MEDICAID, SELFPAY | PROVIDERS: PCP Physician Assistant; Referring Provider Physician Assistant; Visit Provider Internal Medicine Cardiovascular Disease | DX: Z45.02 Encounter for adjustment and management of automatic implantable cardiac defibrillator (principal); I50.20 Unspecified systolic (congestive) heart failure; I25.10 Atherosclerotic heart disease of native coronary artery without angina pectoris | CPT/HCPCS: 93005; 99212 ==

== ENCOUNTER 2023-05-26 12:58 | Outpatient (AMB) | payer MEDICARE, MEDICAID, SELFPAY ==
--- NOTE | 2023-05-26 13:03 | MHC.OFFVIS ---
Intake Vital Signs 05/26/23 13:15 Height 4 ft 11 in Weight 103 lb 2 oz BMI 20.8 BP 152/70 H Blood Pressure Location Rt brachial Position Sitting Pulse 59 Pulse Source Pulse Oximeter Pulse Oximetry (%) 94 Oxygen Delivery Method Room Air Intake Visit Reasons: Pill count Intake Note: Luci comes in today for a pill count to oxycodone, patient should have 72 tablets and presents with 77 tablets which she last took today 05/26/23 at 9:30am. Pain today 03/30. 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 Patient is supposed to have #72 pills, in her possession has #77 pills. This demonstrates a responsible attitude in regards to the medication regimen. She reports adequate analgesia, with no noted side effects. Patient denies any fever, dizziness, chest pain, abdominal or groin pain, constipation, nausea, sedation, dizziness, or urinary retention. Patient states she has an increased ability to perform activities of daily living, interact socially and be more functional. Patient continues to endorse lower back pain with left sided buttock radiating into her left lateral hip. Imaging reports were reviewed with patient today and noted below. Normal sacroiliac joints. There is well-maintained alignment status-post L4-L5 posterior fusion and discectomies. No hardware failure or loosening is seen. No instability is seen with flexion or extension. There is mild degenerative disc disease at L3-L4. [facility] Medical History AAA (abdominal aortic aneurysm) Acute on chronic systolic (congestive) heart failure CAD (coronary artery disease) Cervical spondylosis CKD (chronic kidney disease) stage 3, GFR 30-59 ml/min COVID-19 vaccine series completed Failed back syndrome, lumbar Heart failure with reduced ejection fraction Hiatal hernia History of femoral angiogram History of placement of internal cardiac defibrillator Hx of myocardial infarction Hypertension Ischemic cardiomyopathy Lumbar spondylosis Peripheral vascular disease Surgical History Cardiac defibrillator in place History of biliary duct stent placement History of esophagogastroduodenoscopy (EGD) History of heart bypass surgery History of lumbar fusion History of open reduction and internal fixation (ORIF) procedure History of surgery 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 Sister Gynecologic cancer Social History Household Members: Family Household Members Other:: Son Housing: House Are you a primary before and after school daycare worker to a significant other at home: No Do you presently have visiting nurse or other home services: No Alcohol intake: never Patient Tobacco Use Status: Former Tobacco user Quit Date: 09/21/16 Tobacco use type: Cigarette Years Smoked: 40 e-Cigarette/Vaping Use: Never Used Second Hand Smoke Exposure: No Substance Use Type: Marijuana Advance Directives Date on File: 07/06/21 service: No Current occupational status: disabled Cognitive needs: No Hearing needs: No Vision needs: Yes (Glasses) Review of Systems Const All systems reviewed & are unremarkable except as noted in HPI and below Physical Exam Vital Signs: Last Vital Signs Pulse 59 05/26/23 13:15 BP 152/70 H 05/26/23 13:15 Pulse Ox 94 05/26/23 13:15 Oxygen Delivery Method Room Air 05/26/23 13:15 BMI result Body Mass Index 20.8 On exam today: Appears afebrile. Alert and oriented. Mood and affect appropriate. Follows and participates in conversation appropriately. Respiratory effort is unlabored. No cough. Able to transition from sit to stand unassisted. Back/Spine/Pelvis Other: Lumbar extension and flexion reproduces pain. Facet loading is positive bilaterally. Sacroiliac joints: on the right nontender and on the left tender to palpation Psych Appearance: grossly normal and well kempt Mental Status: mental status grossly normal Speech and movement: Normal speech and movement present and Clear speech present Affect: normal affect Attitude: cooperative Thought process: Normal thought process present Thought content: Normal thought content present, suicidality (none), no hallucinations and No Depressive thoughts present Insight: Good insight present (Psych) Judgement: Good judgement present (Psych) Results Reviewed Results Reviewed: XR LUMBOSACRAL SPINE WITH OBLIQUES 04/27/23 CLINICAL INFORMATION: Postlaminectomy syndrome. COMPARISON: Radiographs dated 05/10/2019. TECHNIQUE: AP, both oblique, and lateral (neutral, flexion and extension) views of the lumbar spine. Lateral view of the lumbosacral junction. FINDINGS: There is bony demineralization. At L3-L4, there is a 4 mm anterolisthesis. There is well-maintained alignment status-post L4-L5 posterior fusion and discectomy, with intact posterior fixator rods, pedicular screws and disc spacer. No hardware failure or loosening is seen. There is no acute fracture or spondylolisthesis. No instability is seen with flexion or extension. No spondylolysis defect is seen on the oblique views. There are aortoiliac atherosclerotic calcifications. Iliac stent material is noted. IMPRESSION: 1. There is well-maintained alignment status-post L4-L5 posterior fusion and discectomies. No hardware failure or loosening is seen. 2. There is mild degenerative disc disease at L3-L4. 3. No instability is seen with flexion or extension. XR SACROILIAC JOINTS 04/27/23 CLINICAL INFORMATION: Sacrococcygeal disorders. COMPARISON: Hip radiographs dated 06/19/2021 and 11/06/2017. FINDINGS: Bones and soft tissues are normal. No fracture. Alignment is anatomic. Sacroiliac joint spaces are well-maintained without erosions or surrounding sclerosis. The acetabular joint spaces are well-maintained. The pubic symphysis is intact. Lumbar orthopedic hardware and right iliac stent material are noted. IMPRESSION: Normal sacroiliac joints. Assessment & Plan Assessment & Plan (1) Failed back syndrome, lumbar: Code(s): M96.1 - Postlaminectomy syndrome, not elsewhere classified (2) Sacroiliac joint pain: Code(s): M53.3 - Sacrococcygeal disorders, not elsewhere classified (3) Lumbar spondylosis: Code(s): M47.816 - Spondylosis without myelopathy or radiculopathy, lumbar region (4) Opioid contract exists: Code(s): Z79.891 - MCC (current) use of opiate analgesic Plan Patient has shown accountability for her medication regimen and the pill counts were accurate. There is no evidence of misuse, abuse or diversion at this time. AbelardoJosephine reviewed. She is aware of monitoring for side effects. I will send her oxycodone 5 mg QID prn with advanced date of 06/14/23. Recent imaging reviewed with patient, will consider interventional treatments at next visit if pain worsens. All questions were answered and the patient is in agreement with the plan. Will follow up in 4 weeks for a pill count or sooner if needed. Medications: Refilled oxycodone Partial Fill upon patient request. 5 mg PO QID PRN 120 tabs 0RF pain (scale score 7-10) 30 days M47.816 - Spondylosis without myelopathy or radiculopathy, lumbar region, M96.1 - Postlaminectomy syndrome, not elsewhere classified, Z79.891 - MCC (current) use of opiate analgesic Coding Level of Care Code Est Pt Level 4 (26148) Diagnoses Failed back syndrome, lumbar M96.1 Sacroiliac joint pain M53.3 Lumbar spondylosis M47.816 Opioid contract exists Z79.891
[2023-05-26 13:15] VITALS: BP 152/70; PULSE 59; O2SAT 94; BMI 20.8
== END 2023-05-26 13:29 | disposition home or self-care (01) ==
PROVIDERS: PCP Physician Assistant; Visit Provider Nurse Practitioner Family
DX: M96.1 Postlaminectomy syndrome, not elsewhere classified (principal); M53.3 Sacrococcygeal disorders, not elsewhere classified; M47.816 Spondylosis without myelopathy or radiculopathy, lumbar region; Z79.891 Long term (current) use of opiate analgesic
CPT/HCPCS: 99214

== ENCOUNTER → 2023-05-26 12:58 | Outpatient (BNVA) | payer MEDICARE, MEDICAID, SELFPAY | PROVIDERS: PCP Physician Assistant; Visit Provider Nurse Practitioner Family | DX: Z51.81 Encounter for therapeutic drug level monitoring (principal); M96.1 Postlaminectomy syndrome, not elsewhere classified; M53.3 Sacrococcygeal disorders, not elsewhere classified; M47.816 Spondylosis without myelopathy or radiculopathy, lumbar region; Z79.891 Long term (current) use of opiate analgesic | CPT/HCPCS: 99212 ==

== ENCOUNTER → 2023-06-15 23:59 | Outpatient (BNV) | payer MEDICARE, MEDICAID, SELFPAY ==
--- NOTE | 2023-06-18 15:57 | MHC.OFFVIS ---
Intake Intake Visit Reasons: Remote HF Monitoring- [facility] Allergies sacubitril [From Entresto] Adverse Reaction (Severe, Verified 05/26/23 13:16) hyperkalemia valsartan [From Entresto] Adverse Reaction (Severe, Verified 05/26/23 13:16) hyperkalemia [facility] Medical History AAA (abdominal aortic aneurysm) Acute on chronic systolic (congestive) heart failure CAD (coronary artery disease) Cervical spondylosis CKD (chronic kidney disease) stage 3, GFR 30-59 ml/min COVID-19 vaccine series completed Failed back syndrome, lumbar Heart failure with reduced ejection fraction Hiatal hernia History of femoral angiogram History of placement of internal cardiac defibrillator Hx of myocardial infarction Hypertension Ischemic cardiomyopathy Lumbar spondylosis Peripheral vascular disease Surgical History Cardiac defibrillator in place History of biliary duct stent placement History of esophagogastroduodenoscopy (EGD) History of heart bypass surgery History of lumbar fusion History of open reduction and internal fixation (ORIF) procedure History of surgery 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 Sister Gynecologic cancer Social History Household Members: Family Household Members Other:: Son Housing: House Are you a primary career information specialist to a significant other at home: No Do you presently have visiting nurse or other home services: No Alcohol intake: never Patient Tobacco Use Status: Former Tobacco user Quit Date: 09/21/16 Tobacco use type: Cigarette Years Smoked: 40 e-Cigarette/Vaping Use: Never Used Second Hand Smoke Exposure: No Substance Use Type: Marijuana Advance Directives Date on File: 07/06/21 service: No Current occupational status: disabled Cognitive needs: No Hearing needs: No Vision needs: Yes (Glasses) Office Procedures Cardiac Device Check Cardiac Device Check Details: Remote heart failure report generated 06/15/2023. Heart failure parameters are stable [id number] Cardiac Device Interrogation, cardio physiologic monitor Procedure code (CPT) selection complete Coding Level of Care Code Procedure Only CPT Codes Cardiac Device Check - Cardiac Device 15: [id number] Cardiac Device Interrogation, cardio physiologic monitor ([id number])
== END ==
PROVIDERS: PCP Physician Assistant; Visit Provider Internal Medicine Cardiovascular Disease
DX: I50.20 Unspecified systolic (congestive) heart failure (principal); Z95.810 Presence of automatic (implantable) cardiac defibrillator
CPT/HCPCS: 93297

== ENCOUNTER → 2023-06-24 23:59 | Outpatient (BNV) | payer MEDICARE, MEDICAID, SELFPAY ==
--- NOTE | 2023-07-13 09:04 | MHC.OFFVIS ---
Intake Intake Visit Reasons: Remote ICD Check- [facility] Allergies sacubitril [From Entresto] Adverse Reaction (Severe, Verified 06/30/23 13:39) hyperkalemia valsartan [From Entresto] Adverse Reaction (Severe, Verified 06/30/23 13:39) hyperkalemia COUNT INCLUDES [facility] Medical History Heart failure with reduced ejection fraction Acute on chronic systolic (congestive) heart failure Lumbar spondylosis Ischemic cardiomyopathy COVID-19 vaccine series completed History of femoral angiogram Hiatal hernia CAD (coronary artery disease) AAA (abdominal aortic aneurysm) Hx of myocardial infarction Hypertension Peripheral vascular disease CKD (chronic kidney disease) stage 3, GFR 30-59 ml/min History of placement of internal cardiac defibrillator Cervical spondylosis Failed back syndrome, lumbar Surgical History Stented coronary artery Status post cardiac catheterization History of biliary duct stent placement 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 Sister Gynecologic cancer Social History Household Members: Family Household Members Other:: Son Housing: House Are you a primary laboratory animal caretaker to a significant other at home: No Do you presently have visiting nurse or other home services: No Alcohol intake: never Patient Tobacco Use Status: Former Tobacco user Quit Date: 09/21/16 Tobacco use type: Cigarette Years Smoked: 40 e-Cigarette/Vaping Use: Never Used Second Hand Smoke Exposure: No Substance Use Type: Marijuana Advance Directives Date on File: 07/06/21 service: No Current occupational status: disabled Cognitive needs: No Hearing needs: No Vision needs: Yes (Glasses) Office Procedures Cardiac Device Check Cardiac Device Check Details: Remote ICD report generated 06/24/2023. ICD function is adequate [id number] Cardiac Interrogation, implant defibrillator w/interim Procedure code (CPT) selection complete Coding Level of Care Code Procedure Only CPT Codes Cardiac Device Check - Cardiac Device 13: [id number] Cardiac Interrogation, implant defibrillator w/interim ([id number])
== END ==
PROVIDERS: PCP Physician Assistant; Visit Provider Internal Medicine Cardiovascular Disease
DX: I25.5 Ischemic cardiomyopathy (principal); Z95.810 Presence of automatic (implantable) cardiac defibrillator
CPT/HCPCS: 93295

== ENCOUNTER 2023-06-30 13:27 | Outpatient (AMB) | payer MEDICARE, MEDICAID, SELFPAY ==
--- NOTE | 2023-06-30 13:30 | MHC.OFFVIS ---
Intake Vital Signs 06/30/23 13:38 Height 4 ft 11 in Weight 106 lb 8 oz BMI 21.5 BP 142/73 H Blood Pressure Location Rt brachial Position Sitting Pulse 77 Pulse Source Pulse Oximeter Pulse Oximetry (%) 97 Oxygen Delivery Method Room Air Intake Visit Reasons: Medication Count Intake Note: Luci comes in today for a pill count to oxycodone, patient should have 52 tablets and presents with 53 tablets which she last took today 06/30/23 at 9:30am. Pain today 03/30 Cloth Hand Required: No Accompanied by: Self / Same As Patient Allergies sacubitril [From Entresto] Adverse Reaction (Severe, Verified 06/30/23 13:39) hyperkalemia valsartan [From Entresto] Adverse Reaction (Severe, Verified 06/30/23 13:39) hyperkalemia HPI HPI Comments History of Present Illness Details Luci presents today for a pill count. Patient is supposed to have #52 pills, in her possession has #53 pills. This demonstrates a responsible attitude in regards to the medication regimen. She reports adequate analgesia, with no noted side effects. Patient denies any fever, dizziness, chest pain, abdominal or groin pain, constipation, nausea, sedation, dizziness, or urinary retention. Patient continues to reports increase in right sided lower back and right sacroiliac joint pain due to cold weather changes and with walking. Patient is not candidate for therapeutic injections due to osteoporosis. Denies any bladder or bowel dysfunction or saddle anesthesia. [facility] Medical History Heart failure with reduced ejection fraction Acute on chronic systolic (congestive) heart failure Lumbar spondylosis Ischemic cardiomyopathy COVID-19 vaccine series completed History of femoral angiogram Hiatal hernia CAD (coronary artery disease) AAA (abdominal aortic aneurysm) Hx of myocardial infarction Hypertension Peripheral vascular disease CKD (chronic kidney disease) stage 3, GFR 30-59 ml/min History of placement of internal cardiac defibrillator Cervical spondylosis Failed back syndrome, lumbar Surgical History Stented coronary artery Status post cardiac catheterization History of biliary duct stent placement 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 Sister Gynecologic cancer Social History Household Members: Family Household Members Other:: Son Housing: House Are you a primary childcare director to a significant other at home: No Do you presently have visiting nurse or other home services: No Alcohol intake: never Patient Tobacco Use Status: Former Tobacco user Quit Date: 09/21/16 Tobacco use type: Cigarette Years Smoked: 40 e-Cigarette/Vaping Use: Never Used Second Hand Smoke Exposure: No Substance Use Type: Marijuana Advance Directives Date on File: 07/06/21 service: No Current occupational status: disabled Cognitive needs: No Hearing needs: No Vision needs: Yes (Glasses) Review of Systems Const All systems reviewed & are unremarkable except as noted in HPI and below Physical Exam On exam today: Appears afebrile. Alert and oriented. Mood and affect appropriate. Follows and participates in conversation appropriately. Respiratory effort is unlabored. No cough. Able to transition from sit to stand unassisted. Back/Spine/Pelvis Other: Lumbar extension and flexion reproduces pain. Facet loading is positive bilaterally. Moderate TTP in the projection of left SIJ area. Cervical Spine: cervical ROM normal and No Cervical spine tenderness Thoracic/Lumbar Spine: thoracic and lumbar spine normal to inspection, Thoracic/lumbar spine scar(s), Lasegue's sign negative, straight leg raise negative bilaterally, pain with thoraco-lumbar ROM, paraspinal muscle tenderness, thoraco-lumbar ROM limited, No thoracic spinal tenderness and lumbar spinal tenderness at L4 and at L5 Pelvis: no buttock tenderness Sacroiliac joints: on the right nontender and on the left (+Jimbo's, +Gaenslen, +Pelvic compression) tender to palpation Psych Appearance: grossly normal Mental Status: mental status grossly normal Speech and movement: Normal speech and movement present Affect: normal affect Attitude: cooperative Thought process: Normal thought process present Thought content: Normal thought content present, suicidality (none), no hallucinations and No Depressive thoughts present Insight: Good insight present (Psych) Judgement: Good judgement present (Psych) Results Reviewed Results Reviewed: XR LUMBOSACRAL SPINE WITH OBLIQUES 04/27/23 CLINICAL INFORMATION: Postlaminectomy syndrome. COMPARISON: Radiographs dated 05/10/2019. TECHNIQUE: AP, both oblique, and lateral (neutral, flexion and extension) views of the lumbar spine. Lateral view of the lumbosacral junction. FINDINGS: There is bony demineralization. At L3-L4, there is a 4 mm anterolisthesis. There is well-maintained alignment status-post L4-L5 posterior fusion and discectomy, with intact posterior fixator rods, pedicular screws and disc spacer. No hardware failure or loosening is seen. There is no acute fracture or spondylolisthesis. No instability is seen with flexion or extension. No spondylolysis defect is seen on the oblique views. There are aortoiliac atherosclerotic calcifications. Iliac stent material is noted. IMPRESSION: 1. There is well-maintained alignment status-post L4-L5 posterior fusion and discectomies. No hardware failure or loosening is seen. 2. There is mild degenerative disc disease at L3-L4. 3. No instability is seen with flexion or extension. XR SACROILIAC JOINTS 04/27/23 CLINICAL INFORMATION: Sacrococcygeal disorders. COMPARISON: Hip radiographs dated 06/19/2021 and 11/06/2017. FINDINGS: Bones and soft tissues are normal. No fracture. Alignment is anatomic. Sacroiliac joint spaces are well-maintained without erosions or surrounding sclerosis. The acetabular joint spaces are well-maintained. The pubic symphysis is intact. Lumbar orthopedic hardware and right iliac stent material are noted. IMPRESSION: Normal sacroiliac joints. BONE DENSITOMETRY 03/05/21 CLINICAL INDICATION: Encounter for screening for osteoporosis. Prior lower lumbar fusion. COMPARISON: Baseline BD dated 12/03/2018. TECHNIQUE: Using a milog DXA System (software version: 13.1) manufactured by [employer], dual-energy x-ray absorptiometry was performed of the lumbar spine and left hip. The images are of good technical quality. Summary results are attached. FINDINGS: AP SPINE L1-L3 (excluding L4): The data of L1-L4 has been changed to exclude the L4 vertebral body, because hardware at this level would cause overestimation of lumbar spine density. Current: BMD 0.975 g/cm2, Z-score 0.5, T-score -1.6, osteopenia, 3.0% increase from baseline (<5% change is not significant). Baseline: BMD 0.947 g/cm2. LEFT FEMUR, NECK: Current: BMD 0.711 g/cm2, Z-score -0.5, T-score -2.4, osteopenia. Baseline: BMD 0.652 g/cm2. LEFT FEMUR, TOTAL: Current: BMD 0.669 g/cm2, Z-score -1.0, T-score -2.7, osteoporosis, 7.4% increase from baseline (<5% change is not significant). Baseline: BMD 0.623 g/cm2. IDENTIFIED RISK FACTORS: Osteoporosis, renal, history of fracture (adult). Early menopause, secondary osteoporosis, anticonvulsant. HISTORY OF FRACTURE: Humerus. MEDICATIONS: None listed. IMPRESSION: 1. DIAGNOSIS: Osteoporosis based on the lowest T-score value of -2.7 in the total femur applying World Health Organization criteria. Assessment & Plan Assessment & Plan (1) Sacroiliac joint pain: Code(s): M53.3 - Sacrococcygeal disorders, not elsewhere classified (2) Failed back syndrome, lumbar: Code(s): M96.1 - Postlaminectomy syndrome, not elsewhere classified (3) Lumbar spondylosis: Code(s): M47.816 - Spondylosis without myelopathy or radiculopathy, lumbar region (4) Osteoporosis: Code(s): M81.0 - Age-related osteoporosis without current pathological fracture Qualifiers: Osteoporosis type: age-related Presence of current pathological fracture: unspecified Qualified Code(s): M81.0 - Age-related osteoporosis without current pathological fracture (5) Opioid contract exists: Code(s): 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 There is no evidence of misuse, abuse or diversion at this time. [employer] reviewed. She is aware of monitoring for side effects. I will send her oxycodone 5 mg QID prn with advanced date of 07/13/23. Discussed interventional treatments for low back and left SIJ pain. Patient is not interested in neuromodulation or RFA procedures, she is not candidate for therapeutic injections due to osteoporosis. All questions were answered and the patient is in agreement with the plan. Follow up in 4 weeks for a pill count or sooner if needed. Medications: New methocarbamol 500 mg PO TID PRN 90 tabs 0RF muscle spasm M47.816 - Spondylosis without myelopathy or radiculopathy, lumbar region, M53.3 - Sacrococcygeal disorders, not elsewhere classified, M96.1 - Postlaminectomy syndrome, not elsewhere classified Refilled oxycodone Partial Fill upon patient request. 5 mg PO QID 30 days PRN 120 tabs 0RF pain (scale score 7-10) M47.816 - Spondylosis without myelopathy or radiculopathy, lumbar region, M96.1 - Postlaminectomy syndrome, not elsewhere classified, Z79.891 - longterm (current) use of opiate analgesic Coding Level of Care Code Est Pt Level 4 (40401) Diagnoses Sacroiliac joint pain M53.3 Failed back syndrome, lumbar M96.1 Lumbar spondylosis M47.816 Age related osteoporosis, unspecified pathological fracture presence M81.0 Osteoporosis type: age-related Presence of current pathological fracture: unspecified Opioid contract exists Z79.891
[2023-06-30 13:38] VITALS: BP 142/73; PULSE 77; O2SAT 97; BMI 21.5
== END 2023-06-30 13:51 | disposition home or self-care (01) ==
PROVIDERS: PCP Physician Assistant; Visit Provider Nurse Practitioner Family
DX: M53.3 Sacrococcygeal disorders, not elsewhere classified (principal); M96.1 Postlaminectomy syndrome, not elsewhere classified; M47.816 Spondylosis without myelopathy or radiculopathy, lumbar region; M81.0 Age-related osteoporosis without current pathological fracture; Z79.891 Long term (current) use of opiate analgesic
CPT/HCPCS: 99214

== ENCOUNTER → 2023-06-30 13:27 | Outpatient (BNVA) | payer MEDICARE, MEDICAID, SELFPAY | PROVIDERS: PCP Physician Assistant; Visit Provider Nurse Practitioner Family | DX: Z51.81 Encounter for therapeutic drug level monitoring (principal); M53.3 Sacrococcygeal disorders, not elsewhere classified; M96.1 Postlaminectomy syndrome, not elsewhere classified; M47.816 Spondylosis without myelopathy or radiculopathy, lumbar region; M81.0 Age-related osteoporosis without current pathological fracture; Z79.891 Long term (current) use of opiate analgesic | CPT/HCPCS: 99212 ==

== ENCOUNTER → 2023-07-27 23:59 | Outpatient (BNV) | payer MEDICARE, MEDICAID, SELFPAY ==
--- NOTE | 2023-07-27 12:32 | A.OFFVIS_ITS ---
Intake Intake Visit Reasons: Remote HF Monitoring- [facility] Allergies sacubitril [From Entresto] Adverse Reaction (Severe, Verified 06/30/23 13:39) hyperkalemia valsartan [From Entresto] Adverse Reaction (Severe, Verified 06/30/23 13:39) hyperkalemia [facility] Medical History Heart failure with reduced ejection fraction Acute on chronic systolic (congestive) heart failure Lumbar spondylosis Ischemic cardiomyopathy COVID-19 vaccine series completed History of femoral angiogram Hiatal hernia CAD (coronary artery disease) AAA (abdominal aortic aneurysm) Hx of myocardial infarction Hypertension Peripheral vascular disease CKD (chronic kidney disease) stage 3, GFR 30-59 ml/min History of placement of internal cardiac defibrillator Cervical spondylosis Failed back syndrome, lumbar Surgical History Stented coronary artery Status post cardiac catheterization History of biliary duct stent placement 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 Sister Gynecologic cancer Social History Household Members: Family Household Members Other:: Son Housing: House Are you a primary childcare attendant to a significant other at home: No Do you presently have visiting nurse or other home services: No Alcohol intake: never Patient Tobacco Use Status: Former Tobacco user Quit Date: 09/21/16 Tobacco use type: Cigarette Years Smoked: 40 e-Cigarette/Vaping Use: Never Used Second Hand Smoke Exposure: No Substance Use Type: Marijuana Advance Directives Date on File: 07/06/21 service: No Current occupational status: disabled Cognitive needs: No Hearing needs: No Vision needs: Yes (Glasses) Office Procedures Cardiac Device Check Cardiac Device Check Details: Remote heart failure report generated 07/27/2023. Heart failure parameters are stable [id number] Cardiac Device Interrogation, cardio physiologic monitor Procedure code (CPT) selection complete Coding Level of Care Code Procedure Only CPT Codes Cardiac Device Check - Cardiac Device 15: [id number] Cardiac Device Interrogation, cardio physiologic monitor ([id number])
== END ==
PROVIDERS: PCP Physician Assistant; Visit Provider Internal Medicine Cardiovascular Disease
DX: I50.23 Acute on chronic systolic (congestive) heart failure (principal); Z95.810 Presence of automatic (implantable) cardiac defibrillator
CPT/HCPCS: 93297

== ENCOUNTER 2023-07-28 12:51 | Outpatient (AMB) | payer MEDICARE, MEDICAID, SELFPAY ==
--- NOTE | 2023-07-28 12:53 | MHC.OFFVIS ---
Intake Vital Signs 07/28/23 13:00 Height 4 ft 11 in Weight 109 lb 2 oz BMI 22.0 BP 176/76 H Blood Pressure Location Rt brachial Position Sitting Pulse 54 Pulse Source Pulse Oximeter Pulse Oximetry (%) 97 Oxygen Delivery Method Room Air Intake Visit Reasons: PILL COUNT Intake Note: Luci comes in today for a pill count to oxycodone, patient should have 56 tablets and presents with 61 tablets which she last took today 07/28/23 at 12pm. Pain today 03/30 Oncology Technician Required: No Accompanied by: Self / Same As Patient Allergies sacubitril [From Entresto] Adverse Reaction (Severe, Verified 07/28/23 13:00) hyperkalemia valsartan [From Entresto] Adverse Reaction (Severe, Verified 07/28/23 13:00) hyperkalemia HPI HPI Comments History of Present Illness Details Luci presents today for a pill count. Patient is supposed to have #56 pills, in her possession has #61 pills. This demonstrates a responsible attitude in regards to the medication regimen. She reports adequate analgesia, with no noted side effects. Patient denies any fever, dizziness, chest pain, abdominal or groin pain, constipation, nausea, sedation, dizziness, or urinary retention. Denies any bladder or bowel dysfunction or saddle anesthesia. Patient reports methocarbamol and would like to trial another muscle relaxant. [facility] Medical History Heart failure with reduced ejection fraction Acute on chronic systolic (congestive) heart failure Lumbar spondylosis Ischemic cardiomyopathy COVID-19 vaccine series completed History of femoral angiogram Hiatal hernia CAD (coronary artery disease) AAA (abdominal aortic aneurysm) Hx of myocardial infarction Hypertension Peripheral vascular disease CKD (chronic kidney disease) stage 3, GFR 30-59 ml/min History of placement of internal cardiac defibrillator Cervical spondylosis Failed back syndrome, lumbar Surgical History Stented coronary artery Status post cardiac catheterization History of biliary duct stent placement 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 Sister Gynecologic cancer Social History Household Members: Family Household Members Other:: Son Housing: House Are you a primary healthcare consultant to a significant other at home: No Do you presently have visiting nurse or other home services: No Alcohol intake: never Patient Tobacco Use Status: Former Tobacco user Quit Date: 09/21/16 Tobacco use type: Cigarette Years Smoked: 40 e-Cigarette/Vaping Use: Never Used Second Hand Smoke Exposure: No Substance Use Type: Marijuana Advance Directives Date on File: 07/06/21 service: No Current occupational status: disabled Cognitive needs: No Hearing needs: No Vision needs: Yes (Glasses) Review of Systems Const All systems reviewed & are unremarkable except as noted in HPI and below Physical Exam Vital Signs: Last Vital Signs Pulse 54 07/28/23 13:00 BP 176/76 H 07/28/23 13:00 Pulse Ox 97 07/28/23 13:00 Oxygen Delivery Method Room Air 07/28/23 13:00 BMI result Body Mass Index 22.0 On exam today: Appears afebrile. Alert and oriented. Mood and affect appropriate. Follows and participates in conversation appropriately. Respiratory effort is unlabored. No cough. Able to transition from sit to stand unassisted. Back/Spine/Pelvis Cervical Spine: cervical muscular tenderness, cervical spasm and No Cervical spine tenderness Thoracic/Lumbar Spine: thoracic and lumbar spine normal to inspection, pain with thoraco-lumbar ROM, paraspinal muscle tenderness, No thoracic spinal tenderness and lumbar spinal tenderness at L4 and at L5 Sacroiliac joints: on the right nontender and on the left (+Jimbo's, +Pelvic compression) tender to palpation Psych Appearance: grossly normal Mental Status: mental status grossly normal Speech and movement: Normal speech and movement present Affect: normal affect Attitude: cooperative Thought process: Normal thought process present Thought content: Normal thought content present, suicidality (none), no hallucinations and No Depressive thoughts present Insight: Good insight present (Psych) Judgement: Good judgement present (Psych) Assessment & Plan Assessment & Plan (1) Sacroiliac joint pain: Code(s): M53.3 - Sacrococcygeal disorders, not elsewhere classified (2) Failed back syndrome, lumbar: Code(s): M96.1 - Postlaminectomy syndrome, not elsewhere classified (3) Muscle spasm: Code(s): M62.838 - Other muscle spasm (4) Lumbar spondylosis: Code(s): M47.816 - Spondylosis without myelopathy or radiculopathy, lumbar region (5) Opioid contract exists: Code(s): Z79.891 - halfway (current) use of opiate analgesic Plan Patient has shown accountability for her medication regimen and the pill counts were accurate. There is no evidence of misuse, abuse or diversion at this time. MassPat reviewed. She is aware of monitoring for side effects. I will send her oxycodone 5 mg QID prn with advanced date of 08/12/23. Will discontinue methocarbamol due to ineffectiveness and start low dose cyclobenzaprine. Patient is aware to monitor for any side effects or intolerances and notify our office. All questions were answered and the patient is in agreement with the plan. Follow up in 4 weeks for a pill count or sooner if needed. Medications: New cyclobenzaprine 5 mg PO BID PRN 14 tabs 0RF muscle spasm M53.3 - Sacrococcygeal disorders, not elsewhere classified, M62.838 - Other muscle spasm, M96.1 - Postlaminectomy syndrome, not elsewhere classified Refilled oxycodone Partial Fill upon patient request. 5 mg PO QID 30 days PRN 120 tabs 0RF pain (scale score 7-10) M47.816 - Spondylosis without myelopathy or radiculopathy, lumbar region, M96.1 - Postlaminectomy syndrome, not elsewhere classified, Z79.891 - extermination inspector (current) use of opiate analgesic Discontinued methocarbamol Discontinued Reason: Patient Completed Course 500 mg PO TID PRN 90 tabs 0RF muscle spasm M47.816 - Spondylosis without myelopathy or radiculopathy, lumbar region, M53.3 - Sacrococcygeal disorders, not elsewhere classified, M96.1 - Postlaminectomy syndrome, not elsewhere classified Coding Level of Care Code Est Pt Level 4 (43247) Diagnoses Sacroiliac joint pain M53.3 Failed back syndrome, lumbar M96.1 Muscle spasm M62.838 Lumbar spondylosis M47.816 Opioid contract exists Z79.891
[2023-07-28 13:00] VITALS: BP 176/76; PULSE 54; O2SAT 97; BMI 22.0
== END 2023-07-28 13:11 | disposition home or self-care (01) ==
PROVIDERS: PCP Physician Assistant; Visit Provider Nurse Practitioner Family
DX: M53.3 Sacrococcygeal disorders, not elsewhere classified (principal); M96.1 Postlaminectomy syndrome, not elsewhere classified; M62.838 Other muscle spasm; Z79.891 Long term (current) use of opiate analgesic; M47.816 Spondylosis without myelopathy or radiculopathy, lumbar region
CPT/HCPCS: 99214

== ENCOUNTER → 2023-07-28 12:51 | Outpatient (BNVA) | payer MEDICARE, MEDICAID, SELFPAY | PROVIDERS: PCP Physician Assistant; Visit Provider Nurse Practitioner Family | DX: Z51.81 Encounter for therapeutic drug level monitoring (principal); M53.3 Sacrococcygeal disorders, not elsewhere classified; M96.1 Postlaminectomy syndrome, not elsewhere classified; M62.838 Other muscle spasm; M47.816 Spondylosis without myelopathy or radiculopathy, lumbar region; Z79.891 Long term (current) use of opiate analgesic | CPT/HCPCS: 99212 ==

== ENCOUNTER 2023-08-25 12:55 | Outpatient (AMB) | payer MEDICARE, MEDICAID, SELFPAY ==
[2023-08-25 13:04] VITALS: BP 149/64; PULSE 60; RESP 16; O2SAT 98; BMI 22.0
--- NOTE | 2023-08-25 13:04 | MHC.OFFVIS ---
Intake Vital Signs 08/25/23 13:04 Height 4 ft 11 in Weight 109 lb BMI 22.0 BP 149/64 H Blood Pressure Location Lt brachial Position Sitting Respiration 16 Pulse 60 Pulse Source Pulse Oximeter Pulse Oximetry (%) 98 Oxygen Delivery Method Room Air Intake Visit Reasons: Medication Count/confirmed Allergies sacubitril [From Entresto] Adverse Reaction (Severe, Verified 08/25/23 13:05) hyperkalemia valsartan [From Entresto] Adverse Reaction (Severe, Verified 08/25/23 13:05) hyperkalemia Medication List - Last Reconciled 08/25/23 by NANCY Rodgers alendronate 70 mg PO QWEEK aspirin (Adult Low Dose Aspirin) 81 mg PO DAILY atorvastatin 80 mg PO DAILY calcium carbonate (Oyster Shell Calcium) 500 mg PO DAILY 90 days diphenoxylate-atropine 2.5-0.025 mg 1 tab PO BID PRN 30 days ezetimibe 10 mg PO DAILY furosemide 20 mg PO DAILY hydroxyzine HCl 20 mg (2 x 10 mg) PO BEDTIME 30 days metoprolol succinate ER 50 mg PO DAILY oxycodone 5 mg PO QID PRN 30 days rivaroxaban (Xarelto) 2.5 mg PO BID tizanidine 2 mg PO TID PRN 30 days HPI HPI Comments History of Present Illness Details Luci presents today for a pill count. Patient is supposed to have #64 pills, in her possession has #68 pills. This demonstrates a responsible attitude in regards to the medication regimen. Patient reports adequate analgesia, with no noted side effects. Patient denies any fever, dizziness, chest pain, abdominal or groin pain, constipation, nausea, sedation, dizziness, or urinary retention. Denies any bladder or bowel dysfunction or saddle anesthesia. Patient reports cyclobenzaprine was not effective for low back muscle spasms relief. [facility] Medical History Heart failure with reduced ejection fraction Acute on chronic systolic (congestive) heart failure Lumbar spondylosis Ischemic cardiomyopathy COVID-19 vaccine series completed History of femoral angiogram Hiatal hernia CAD (coronary artery disease) AAA (abdominal aortic aneurysm) Hx of myocardial infarction Hypertension Peripheral vascular disease CKD (chronic kidney disease) stage 3, GFR 30-59 ml/min History of placement of internal cardiac defibrillator Cervical spondylosis Failed back syndrome, lumbar Surgical History Stented coronary artery Status post cardiac catheterization History of biliary duct stent placement 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 Sister Gynecologic cancer Social History Household Members: Family Household Members Other:: Son Housing: House Are you a primary care management associate to a significant other at home: No Do you presently have visiting nurse or other home services: No Alcohol intake: never Patient Tobacco Use Status: Former Tobacco user Quit Date: 09/21/16 Tobacco use type: Cigarette Years Smoked: 40 e-Cigarette/Vaping Use: Never Used Second Hand Smoke Exposure: No Substance Use Type: Marijuana Advance Directives Date on File: 07/06/21 service: No Current occupational status: disabled Cognitive needs: No Hearing needs: No Vision needs: Yes (Glasses) Review of Systems Const All systems reviewed & are unremarkable except as noted in HPI and below Physical Exam Vital Signs: Last Vital Signs Pulse 60 08/25/23 13:04 Resp 16 08/25/23 13:04 BP 149/64 H 08/25/23 13:04 Pulse Ox 98 08/25/23 13:04 Oxygen Delivery Method Room Air 08/25/23 13:04 BMI result Body Mass Index 22.0 On exam today: Appears afebrile. Alert and oriented. Mood and affect appropriate. Follows and participates in conversation appropriately. Respiratory effort is unlabored. No cough. Able to transition from sit to stand unassisted. Back/Spine/Pelvis Cervical Spine: cervical muscular tenderness and No Cervical spine tenderness Thoracic/Lumbar Spine: thoracic and lumbar spine normal to inspection, Thoracic/lumbar spine scar(s), pain with thoraco-lumbar ROM, paraspinal muscle tenderness, thoraco-lumbar spasm, No thoracic spinal tenderness and lumbar spinal tenderness at L4 and at L5 Sacroiliac joints: on the right nontender and on the left (+Jimbo's, +Pelvic compression) tender to palpation Psych Appearance: grossly normal Mental Status: mental status grossly normal Speech and movement: Normal speech and movement present Affect: normal affect Attitude: cooperative Thought process: Normal thought process present Thought content: Normal thought content present, suicidality (none), no hallucinations and No Depressive thoughts present Insight: Good insight present (Psych) Judgement: Good judgement present (Psych) Results Reviewed Results Reviewed: XR LUMBOSACRAL SPINE WITH OBLIQUES 04/27/23 CLINICAL INFORMATION: Postlaminectomy syndrome. COMPARISON: Radiographs dated 05/10/2019. TECHNIQUE: AP, both oblique, and lateral (neutral, flexion and extension) views of the lumbar spine. Lateral view of the lumbosacral junction. FINDINGS: There is bony demineralization. At L3-L4, there is a 4 mm anterolisthesis. There is well-maintained alignment status-post L4-L5 posterior fusion and discectomy, with intact posterior fixator rods, pedicular screws and disc spacer. No hardware failure or loosening is seen. There is no acute fracture or spondylolisthesis. No instability is seen with flexion or extension. No spondylolysis defect is seen on the oblique views. There are aortoiliac atherosclerotic calcifications. Iliac stent material is noted. IMPRESSION: 1. There is well-maintained alignment status-post L4-L5 posterior fusion and discectomies. No hardware failure or loosening is seen. 2. There is mild degenerative disc disease at L3-L4. 3. No instability is seen with flexion or extension. XR SACROILIAC JOINTS 04/27/23 CLINICAL INFORMATION: Sacrococcygeal disorders. COMPARISON: Hip radiographs dated 06/19/2021 and 11/06/2017. FINDINGS: Bones and soft tissues are normal. No fracture. Alignment is anatomic. Sacroiliac joint spaces are well-maintained without erosions or surrounding sclerosis. The acetabular joint spaces are well-maintained. The pubic symphysis is intact. Lumbar orthopedic hardware and right iliac stent material are noted. IMPRESSION: Normal sacroiliac joints. BONE DENSITOMETRY 03/05/21 CLINICAL INDICATION: Encounter for screening for osteoporosis. Prior lower lumbar fusion. COMPARISON: Baseline BD dated 12/03/2018. TECHNIQUE: Using a [employer] DXA System (software version: 13.1) manufactured by [employer], dual-energy x-ray absorptiometry was performed of the lumbar spine and left hip. The images are of good technical quality. Summary results are attached. FINDINGS: AP SPINE L1-L3 (excluding L4): The data of L1-L4 has been changed to exclude the L4 vertebral body, because hardware at this level would cause overestimation of lumbar spine density. Current: BMD 0.975 g/cm2, Z-score 0.5, T-score -1.6, osteopenia, 3.0% increase from baseline (<5% change is not significant). Baseline: BMD 0.947 g/cm2. LEFT FEMUR, NECK: Current: BMD 0.711 g/cm2, Z-score -0.5, T-score -2.4, osteopenia. Baseline: BMD 0.652 g/cm2. LEFT FEMUR, TOTAL: Current: BMD 0.669 g/cm2, Z-score -1.0, T-score -2.7, osteoporosis, 7.4% increase from baseline (<5% change is not significant). Baseline: BMD 0.623 g/cm2. IDENTIFIED RISK FACTORS: Osteoporosis, renal, history of fracture (adult). Early menopause, secondary osteoporosis, anticonvulsant. HISTORY OF FRACTURE: Humerus. MEDICATIONS: None listed. IMPRESSION: 1. DIAGNOSIS: Osteoporosis based on the lowest T-score value of -2.7 in the total femur applying World Health Organization criteria. Assessment & Plan Assessment & Plan (1) Muscle spasm: Code(s): M62.838 - Other muscle spasm (2) Sacroiliac joint pain: Code(s): M53.3 - Sacrococcygeal disorders, not elsewhere classified (3) Failed back syndrome, lumbar: Code(s): M96.1 - Postlaminectomy syndrome, not elsewhere classified (4) Lumbar spondylosis: Code(s): M47.816 - Spondylosis without myelopathy or radiculopathy, lumbar region (5) Opioid contract exists: Code(s): Z79.891 - emt intermediate (current) use of opiate analgesic Plan Patient has shown accountability for her medication regimen and the pill counts were accurate. There is no evidence of misuse, abuse or diversion at this time. MassPat reviewed. She is aware of monitoring for side effects. Script sent for oxycodone 5 mg QID prn with advanced date of 09/10/23. Script also sent for tizanidine, side effects and precautions were reviewed with patient. Patient is aware to monitor for any side effects or intolerances and notify our office. All questions were answered and the patient is in agreement with the plan. Follow up in 4-5 weeks for a pill count or sooner if needed. Medications: New tizanidine 2 mg PO TID 30 days PRN 90 tabs 0RF muscle spasticity M62.838 - Other muscle spasm Refilled oxycodone Partial Fill upon patient request. 5 mg PO QID PRN 120 tabs 0RF pain (scale score 7-10) 30 days M47.816 - Spondylosis without myelopathy or radiculopathy, lumbar region, M96.1 - Postlaminectomy syndrome, not elsewhere classified, Z79.891 - senior living (current) use of opiate analgesic Discontinued prednisone Discontinued Reason: Patient Completed Course 10 mg PO DAILY 10 days 10 tabs 0RF M53.3 - Sacrococcygeal disorders, not elsewhere classified cyclobenzaprine Discontinued Reason: Patient Completed Course 5 mg PO BID PRN 14 tabs 0RF muscle spasm M53.3 - Sacrococcygeal disorders, not elsewhere classified, M62.838 - Other muscle spasm, M96.1 - Postlaminectomy syndrome, not elsewhere classified Coding Level of Care Code Est Pt Level 4 (05234) Diagnoses Muscle spasm M62.838 Sacroiliac joint pain M53.3 Failed back syndrome, lumbar M96.1 Lumbar spondylosis M47.816 Opioid contract exists Z79.891
== END 2023-08-25 13:19 | disposition home or self-care (01) ==
PROVIDERS: PCP Physician Assistant; Visit Provider Nurse Practitioner Family
DX: M62.838 Other muscle spasm (principal); M53.3 Sacrococcygeal disorders, not elsewhere classified; M96.1 Postlaminectomy syndrome, not elsewhere classified; Z79.891 Long term (current) use of opiate analgesic; M47.816 Spondylosis without myelopathy or radiculopathy, lumbar region
CPT/HCPCS: 99214

== ENCOUNTER → 2023-08-25 12:55 | Outpatient (BNVA) | payer MEDICARE, MEDICAID, SELFPAY | PROVIDERS: PCP Physician Assistant; Visit Provider Nurse Practitioner Family | DX: M62.838 Other muscle spasm (principal); M53.3 Sacrococcygeal disorders, not elsewhere classified; M47.816 Spondylosis without myelopathy or radiculopathy, lumbar region; M96.1 Postlaminectomy syndrome, not elsewhere classified; Z79.891 Long term (current) use of opiate analgesic | CPT/HCPCS: 99212 ==

== ENCOUNTER → 2023-09-17 23:59 | Outpatient (BNV) | payer MEDICARE, MEDICAID, SELFPAY ==
--- NOTE | 2023-09-22 08:15 | A.OFFVIS_ITS ---
Intake Intake Visit Reasons: Remote HF Monitoring- [facility] Allergies sacubitril [From Entresto] Adverse Reaction (Severe, Verified 08/25/23 13:05) hyperkalemia valsartan [From Entresto] Adverse Reaction (Severe, Verified 08/25/23 13:05) hyperkalemia [facility] Medical History Heart failure with reduced ejection fraction Acute on chronic systolic (congestive) heart failure Lumbar spondylosis Ischemic cardiomyopathy COVID-19 vaccine series completed History of femoral angiogram Hiatal hernia CAD (coronary artery disease) AAA (abdominal aortic aneurysm) Hx of myocardial infarction Hypertension Peripheral vascular disease CKD (chronic kidney disease) stage 3, GFR 30-59 ml/min History of placement of internal cardiac defibrillator Cervical spondylosis Failed back syndrome, lumbar Surgical History Stented coronary artery Status post cardiac catheterization History of biliary duct stent placement 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 Sister Gynecologic cancer Social History Household Members: Family Household Members Other:: Son Housing: House Are you a primary neurocritical care physician to a significant other at home: No Do you presently have visiting nurse or other home services: No Alcohol intake: never Patient Tobacco Use Status: Former Tobacco user Quit Date: 09/21/16 Tobacco use type: Cigarette Years Smoked: 40 e-Cigarette/Vaping Use: Never Used Second Hand Smoke Exposure: No Substance Use Type: Marijuana Advance Directives Date on File: 07/06/21 service: No Current occupational status: disabled Cognitive needs: No Hearing needs: No Vision needs: Yes (Glasses) Office Procedures Cardiac Device Check Cardiac Device Check Details: Remote heart failure report generated 09/17/2023. Heart failure parameters are stable [id number] Cardiac Device Interrogation, cardio physiologic monitor Procedure code (CPT) selection complete Assessment & Plan Assessment & Plan (1) ICD (implantable cardioverter-defibrillator) in place: Code(s): Z95.810 - Presence of automatic (implantable) cardiac defibrillator Plan: See above Coding Level of Care Code Procedure Only Diagnoses ICD (implantable cardioverter-defibrillator) in place Z95.810 CPT Codes Cardiac Device Check - Cardiac Device 15: [id number] Cardiac Device Interrogation, cardio physiologic monitor ([id number])
== END ==
PROVIDERS: PCP Physician Assistant; Visit Provider Internal Medicine Cardiovascular Disease
DX: I50.20 Unspecified systolic (congestive) heart failure (principal); Z95.810 Presence of automatic (implantable) cardiac defibrillator
CPT/HCPCS: 93297

== ENCOUNTER 2023-09-23 15:19 | Outpatient (AMB) | payer MEDICARE, MEDICAID, SELFPAY ==
--- NOTE | 2023-09-23 15:28 | MHC.OFFVIS ---
Intake Vital Signs 09/23/23 15:33 Height 4 ft 11 in Weight 109 lb BMI 22.0 Intake Visit Reasons: OV-Left hand injection- last inj 01/21/23 Intake Note: Luci 67 yr old female presents today for her Arthritis of carpometacarpal (CMC) joint of left thumb s/p injection from 01/21/23. States injection did not help this time and was in severe pain 2 weeks after injection. States she doesn't want to repeat injection today. Allergies sacubitril [From Entresto] Adverse Reaction (Severe, Verified 09/23/23 15:29) hyperkalemia valsartan [From Entresto] Adverse Reaction (Severe, Verified 09/23/23 15:29) hyperkalemia HPI OV-Left hand injection- last inj 01/21/23 HPI Details Luci is a 67 year old right hand dominant woman with known left basal joint OA. She presents today with increased pain and would like to discuss treatment options. She was last seen, and injected, on 01/21/23. She says this injection caused an increase of pain for the following 2 weeks and did not provide her any relief. She has pain with pinching and gripping activities, which she describes mostly as an aching throb, though with some occasional sharp pain. She wears her comfort cool brace with daily activity. She also complains of a new mass on her left hand. She denies any locking, numbness, or tingling. She is on Oxycodone with Pain Management for her LBP. She says Pain Management ordered a NCS for her LUE. She has a Hx of steroid injections: 07/07/22 by EDEL Kang, which she says gave her no relief. With me on 01/29/22 with good relief, and again with me on 01/21/2023 with pain for 2 weeks and then no significant relief. She says she smokes Marijuana primarily at night to help her fall asleep. She has a Hx of heart failure, has an ICD, and is on Xarelto. COUNTS INCLUDE 234 BEDS AT THE [facility] Medical History Heart failure with reduced ejection fraction Acute on chronic systolic (congestive) heart failure Lumbar spondylosis Ischemic cardiomyopathy COVID-19 vaccine series completed History of femoral angiogram Hiatal hernia CAD (coronary artery disease) AAA (abdominal aortic aneurysm) Hx of myocardial infarction Hypertension Peripheral vascular disease CKD (chronic kidney disease) stage 3, GFR 30-59 ml/min History of placement of internal cardiac defibrillator Cervical spondylosis Failed back syndrome, lumbar Surgical History Stented coronary artery Status post cardiac catheterization History of biliary duct stent placement 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 Sister Gynecologic cancer Social History Household Members: Family Household Members Other:: Son Housing: House Are you a primary care transition mgr to a significant other at home: No Do you presently have visiting nurse or other home services: No Alcohol intake: never Patient Tobacco Use Status: Former Tobacco user Quit Date: 09/21/16 Tobacco use type: Cigarette Years Smoked: 40 e-Cigarette/Vaping Use: Never Used Second Hand Smoke Exposure: No Substance Use Type: Marijuana Advance Directives Date on File: 07/06/21 service: No Current occupational status: disabled Cognitive needs: No Hearing needs: No Vision needs: Yes (Glasses) Review of Systems Const All systems reviewed & are unremarkable except as noted in HPI and below Physical Exam Vital Signs: BMI result Body Mass Index 22.0 Const General: no acute distress and alert Orientation/consciousness: patient oriented x3 Neuro General: patient oriented x3 Extrem Other: Evaluation of Left Upper Extremity: Patient is alert, oriented, and in no acute distress Neuro: Median, Ulnar, Radial nerves motor and sensory intact and sensation normal to the tips of all digits No thenar or intrinsic wasting. Good APB muscle belly firing and finger cross. ROM: Can bring fingers closed to a fist and back out to full extension. No thumb MCP joint tenderness except when brought into hyperextension Most Tender to palpation about the basal joint of the left thumb + Shoulder sign + CMC grind Not-tender over the first dorsal compartment, though she has a new small cystic mass measuring about 2 mm in diameter over the 1st dorsal compartment where passes over the radial styloid. It is not particularly tender. No A1 martha tenderness No visible or palpable locking or catching Cap refill brisk Radiographs: 3 views of the left hand from 01/21/23 were reviewed by me today in clinic. They show no fractures or dislocations, there is evidence of left basal joint osteoarthritis with joint space narrowing and subchondral sclerosis Nerve Conduction Study: Left side only Normal study with no evidence of carpal tunnel syndrome Dr. Carlos 02/18/23 Psych Appearance: grossly normal Affect: normal affect Attitude: cooperative Office Procedures Fracture Care Details: No fracture, injection Fracture Billing Code: Fracture Billing Code Assessment & Plan Assessment & Plan (1) Arthritis of carpometacarpal (CMC) joint of left thumb: Code(s): M18.12 - Unilateral primary osteoarthritis of first carpometacarpal joint, left hand (2) Ganglion cyst of dorsum of left wrist: Code(s): M67.432 - Ganglion, left wrist (3) Opioid contract exists: Code(s): Z79.891 - FPC (current) use of opiate analgesic Plan Assessment & Plan: 1. Left Basal joint arthritis, S/P repeat injections Date of Injections: 01/21/23, 07/07/22, 01/29/22 I educated her about this condition I discussed treatment options, including the possibility of surgery in the future She says her most recent injection gave her no relief and caused her increased pain for ~2 weeks After discussing these options, the patient would like to proceed with a repeat injection today I discussed activity modification and told her to limit any heavy or repetitive gripping or pinching activities. She was fitted for a new neoprene thumb spica splint to wear with daily activity. Injection #1 : The risks and benefits of a steroid injection including but not limited to risk of damage to blood vessels, nerve, tendon, infection, skin bleaching, persistent or worsening pain, and failure to improve symptoms were discussed with the patient and they wish to proceed with the steroid injection. Once consent was obtained the skin over the dorsum of the Left basal joint was sterilely prepped. The joint was then injected with a combination of 1 mL of (40 mg/ml} Depo-Medrol and 1% plain Lidocaine. The patient appears to have tolerated the procedure well and with no complications. She had good early relief before leaving clinic today. She knows that they may not have another steroid injection into this joint for least 4 months. Please note that this patient has a significant cardiac condition, and evidently had a major heart attack following spine surgery. She has an implantable cardiac defibrillator in place, and is on Xarelto. She also has other medical conditions that make surgery less attractive. She says she was told that she should only have surgery if it is absolutely necessary. Scribed for Gina Wallace MD by Nader Staples, medical technologist hematology, on 09/23/23 at 4:00 PM, EST. Coding Level of Care Code Est Pt Level 3 (98493) Diagnoses Arthritis of carpometacarpal (CMC) joint of left thumb M18.12 Ganglion cyst of dorsum of left wrist M67.432 Opioid contract exists Z79.891 CPT Codes Fracture Care - Fracture Billing Code: Fracture Billing Code ([id number])
[2023-09-23 15:33] VITALS: BMI 22.0
== END 2023-09-23 16:53 | disposition home or self-care (01) ==
PROVIDERS: PCP Physician Assistant; Visit Provider Orthopaedic Surgery
DX: M18.12 Unilateral primary osteoarthritis of first carpometacarpal joint, left hand (principal); M67.432 Ganglion, left wrist; Z79.891 Long term (current) use of opiate analgesic
CPT/HCPCS: 20600; 99213

== ENCOUNTER → 2023-09-23 15:19 | Outpatient (BNVA) | payer MEDICARE, MEDICAID, SELFPAY | PROVIDERS: PCP Physician Assistant; Visit Provider Orthopaedic Surgery | DX: M18.12 Unilateral primary osteoarthritis of first carpometacarpal joint, left hand (principal); M67.432 Ganglion, left wrist; Z79.891 Long term (current) use of opiate analgesic | CPT/HCPCS: 20600; 99212; J1020 ==

== ENCOUNTER → 2023-09-23 23:59 | Outpatient (BNV) | payer MEDICARE, MEDICAID, SELFPAY ==
--- NOTE | 2023-09-23 09:52 | MHC.OFFVIS ---
Intake Intake Visit Reasons: Remote ICD Check- [facility] Allergies sacubitril [From Entresto] Adverse Reaction (Severe, Verified 08/25/23 13:05) hyperkalemia valsartan [From Entresto] Adverse Reaction (Severe, Verified 08/25/23 13:05) hyperkalemia [facility] Medical History Heart failure with reduced ejection fraction Acute on chronic systolic (congestive) heart failure Lumbar spondylosis Ischemic cardiomyopathy COVID-19 vaccine series completed History of femoral angiogram Hiatal hernia CAD (coronary artery disease) AAA (abdominal aortic aneurysm) Hx of myocardial infarction Hypertension Peripheral vascular disease CKD (chronic kidney disease) stage 3, GFR 30-59 ml/min History of placement of internal cardiac defibrillator Cervical spondylosis Failed back syndrome, lumbar Surgical History Stented coronary artery Status post cardiac catheterization History of biliary duct stent placement 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 Sister Gynecologic cancer Social History Household Members: Family Household Members Other:: Son Housing: House Are you a primary rental boats caretaker to a significant other at home: No Do you presently have visiting nurse or other home services: No Alcohol intake: never Patient Tobacco Use Status: Former Tobacco user Quit Date: 09/21/16 Tobacco use type: Cigarette Years Smoked: 40 e-Cigarette/Vaping Use: Never Used Second Hand Smoke Exposure: No Substance Use Type: Marijuana Advance Directives Date on File: 07/06/21 service: No Current occupational status: disabled Cognitive needs: No Hearing needs: No Vision needs: Yes (Glasses) Office Procedures Cardiac Device Check Cardiac Device Check Details: Remote ICD report generated 09/23/2022. ICD function is adequate [id number] Cardiac Interrogation, implant defibrillator w/interim Procedure code (CPT) selection complete Assessment & Plan Assessment & Plan (1) ICD (implantable cardioverter-defibrillator) in place: Code(s): Z95.810 - Presence of automatic (implantable) cardiac defibrillator Plan: See above Coding Level of Care Code Procedure Only Diagnoses ICD (implantable cardioverter-defibrillator) in place Z95.810 CPT Codes Cardiac Device Check - Cardiac Device 13: [id number] Cardiac Interrogation, implant defibrillator w/interim ([id number])
== END ==
PROVIDERS: PCP Physician Assistant; Visit Provider Internal Medicine Cardiovascular Disease
DX: I25.5 Ischemic cardiomyopathy (principal); Z95.810 Presence of automatic (implantable) cardiac defibrillator
CPT/HCPCS: 93295

== ENCOUNTER 2023-09-29 12:57 | Outpatient (AMB) | payer MEDICARE, MEDICAID, SELFPAY ==
--- NOTE | 2023-09-29 12:58 | MHC.OFFVIS ---
Intake Vital Signs 09/29/23 13:11 Height 4 ft 11 in Weight 110 lb 2 oz BMI 22.2 BP 168/73 H Blood Pressure Location Lt brachial Position Sitting Pulse 64 Pulse Source Pulse Oximeter Pulse Oximetry (%) 98 Oxygen Delivery Method Room Air Intake Visit Reasons: Medication Count Intake Note: Luci comes in today for a pill count to oxycodone, patient should have 40 tablets and presents with 42 tablets which she last took today 09/29/23 at 10:30am. Pain today 02/28. Patient signed updated opioid contract in office today, signed copy was provided to patient. 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 Patient is supposed to have #40 pills, in her possession has #42 pills. This demonstrates a responsible attitude in regards to the medication regimen. Patient reports adequate analgesia, with no noted side effects but reports increased pain with cold, rainy and snow weather. Patient denies any fever, dizziness, chest pain, abdominal or groin pain, constipation, nausea, sedation, dizziness, or urinary retention. Denies any bladder or bowel dysfunction or saddle anesthesia. [facility] Medical History Heart failure with reduced ejection fraction Acute on chronic systolic (congestive) heart failure Lumbar spondylosis Ischemic cardiomyopathy COVID-19 vaccine series completed History of femoral angiogram Hiatal hernia CAD (coronary artery disease) AAA (abdominal aortic aneurysm) Hx of myocardial infarction Hypertension Peripheral vascular disease CKD (chronic kidney disease) stage 3, GFR 30-59 ml/min History of placement of internal cardiac defibrillator Cervical spondylosis Failed back syndrome, lumbar Surgical History Stented coronary artery Status post cardiac catheterization History of biliary duct stent placement 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 Sister Gynecologic cancer Social History Household Members: Family Household Members Other:: Son Housing: House Are you a primary nurse healthcare manager to a significant other at home: No Do you presently have visiting nurse or other home services: No Alcohol intake: never Patient Tobacco Use Status: Former Tobacco user Quit Date: 09/21/16 Tobacco use type: Cigarette Years Smoked: 40 e-Cigarette/Vaping Use: Never Used Second Hand Smoke Exposure: No Substance Use Type: Marijuana Advance Directives Date on File: 07/06/21 service: No Current occupational status: disabled Cognitive needs: No Hearing needs: No Vision needs: Yes (Glasses) Review of Systems Const All systems reviewed & are unremarkable except as noted in HPI and below Physical Exam On exam today: Appears afebrile. Alert and oriented. Mood and affect appropriate. Follows and participates in conversation appropriately. Respiratory effort is unlabored. No cough. Able to transition from sit to stand unassisted. Psych Appearance: grossly normal Mental Status: mental status grossly normal Speech and movement: Normal speech and movement present Affect: normal affect Attitude: cooperative Thought process: Normal thought process present Thought content: Normal thought content present, suicidality (none), no hallucinations and No Depressive thoughts present Insight: Good insight present (Psych) Judgement: Good judgement present (Psych) Assessment & Plan Assessment & Plan (1) Muscle spasm: Code(s): M62.838 - Other muscle spasm (2) Sacroiliac joint pain: Code(s): M53.3 - Sacrococcygeal disorders, not elsewhere classified (3) Failed back syndrome, lumbar: Code(s): M96.1 - Postlaminectomy syndrome, not elsewhere classified (4) Lumbar spondylosis: Code(s): M47.816 - Spondylosis without myelopathy or radiculopathy, lumbar region (5) Opioid contract exists: Code(s): 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 There is no evidence of misuse, abuse or diversion at this time. MassPat reviewed. She is aware of monitoring for side effects. Script sent for oxycodone 5 mg QID prn with advanced date of 10/10/23. Patient is aware to monitor for any side effects or intolerances and notify our office. Blood pressure monitor script provided per patient's request. She All questions were answered and the patient is in agreement with the plan. Follow up in 4-5 weeks for a pill count or sooner if needed. Medications: New blood pressure monitor As directed 1 ea 0RF blood pressure monitoring I10 - Essential (primary) hypertension Refilled oxycodone Partial Fill upon patient request. 5 mg PO QID 30 days PRN 120 tabs 0RF pain (scale score 7-10) M47.816 - Spondylosis without myelopathy or radiculopathy, lumbar region, M96.1 - Postlaminectomy syndrome, not elsewhere classified, Z79.891 - longterm (current) use of opiate analgesic Coding Level of Care Code Est Pt Level 4 (39487) Diagnoses Muscle spasm M62.838 Sacroiliac joint pain M53.3 Failed back syndrome, lumbar M96.1 Lumbar spondylosis M47.816 Opioid contract exists Z79.891
[2023-09-29 13:11] VITALS: BP 168/73; PULSE 64; O2SAT 98; BMI 22.2
== END 2023-09-29 13:22 | disposition home or self-care (01) ==
PROVIDERS: PCP Physician Assistant; Visit Provider Nurse Practitioner Family
DX: M62.838 Other muscle spasm (principal); M53.3 Sacrococcygeal disorders, not elsewhere classified; M96.1 Postlaminectomy syndrome, not elsewhere classified; M47.816 Spondylosis without myelopathy or radiculopathy, lumbar region; Z79.891 Long term (current) use of opiate analgesic
CPT/HCPCS: 99214

== ENCOUNTER → 2023-09-29 12:57 | Outpatient (BNVA) | payer MEDICARE, MEDICAID, SELFPAY | PROVIDERS: PCP Physician Assistant; Visit Provider Nurse Practitioner Family | DX: Z51.81 Encounter for therapeutic drug level monitoring (principal); M62.838 Other muscle spasm; M53.3 Sacrococcygeal disorders, not elsewhere classified; M96.1 Postlaminectomy syndrome, not elsewhere classified; M47.816 Spondylosis without myelopathy or radiculopathy, lumbar region; Z79.891 Long term (current) use of opiate analgesic | CPT/HCPCS: 99212 ==

== ENCOUNTER 2023-10-30 12:49 | Outpatient (AMB) | payer MEDICARE, MEDICAID, SELFPAY ==
--- NOTE | 2023-10-30 12:53 | MHC.OFFVIS ---
Intake Vital Signs 10/30/23 13:04 Height 4 ft 11 in Weight 109 lb 2 oz BMI 22.0 BP 140/64 H Blood Pressure Location Lt brachial Position Sitting Respiration 12 Pulse 64 Pulse Source Pulse Oximeter Pulse Oximetry (%) 98 Oxygen Delivery Method Room Air Intake Visit Reasons: Med count/confirmed Allergies sacubitril [From Entresto] Adverse Reaction (Severe, Verified 10/30/23 13:04) hyperkalemia valsartan [From Entresto] Adverse Reaction (Severe, Verified 10/30/23 13:04) hyperkalemia HPI HPI Comments History of Present Illness Details Patient presents today for a pill count. Patient is supposed to have #36 pills, in her possession has #40 pills. This demonstrates a responsible attitude in regards to the medication regimen. Patient reports adequate analgesia, with no noted side effects but reports increased pain with cold, rainy and snow weather. Patient denies any fever, dizziness, chest pain, abdominal or groin pain, constipation, nausea, sedation, dizziness, or urinary retention. Denies any bladder or bowel dysfunction or saddle anesthesia. [facility] Medical History Heart failure with reduced ejection fraction Acute on chronic systolic (congestive) heart failure Lumbar spondylosis Ischemic cardiomyopathy COVID-19 vaccine series completed History of femoral angiogram Hiatal hernia CAD (coronary artery disease) AAA (abdominal aortic aneurysm) Hx of myocardial infarction Hypertension Peripheral vascular disease CKD (chronic kidney disease) stage 3, GFR 30-59 ml/min History of placement of internal cardiac defibrillator Cervical spondylosis Failed back syndrome, lumbar Surgical History Stented coronary artery Status post cardiac catheterization History of biliary duct stent placement 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 Sister Gynecologic cancer Social History Household Members: Family Household Members Other:: Son Housing: House Are you a primary director of critical care to a significant other at home: No Do you presently have visiting nurse or other home services: No Alcohol intake: never Patient Tobacco Use Status: Former Tobacco user Quit Date: 09/21/16 Tobacco use type: Cigarette Years Smoked: 40 e-Cigarette/Vaping Use: Never Used Second Hand Smoke Exposure: No Substance Use Type: Marijuana Advance Directives Date on File: 07/06/21 service: No Current occupational status: disabled Cognitive needs: No Hearing needs: No Vision needs: Yes (Glasses) Review of Systems Const All systems reviewed & are unremarkable except as noted in HPI and below Physical Exam Vital Signs: Last Vital Signs Pulse 64 10/30/23 13:04 Resp 12 10/30/23 13:04 BP 140/64 H 10/30/23 13:04 Pulse Ox 98 10/30/23 13:04 Oxygen Delivery Method Room Air 10/30/23 13:04 BMI result Body Mass Index 22.0 On exam today: Appears afebrile. Alert and oriented. Mood and affect appropriate. Follows and participates in conversation appropriately. Respiratory effort is unlabored. No cough. Able to transition from sit to stand unassisted. Back/Spine/Pelvis Cervical Spine: cervical muscular tenderness and No Cervical spine tenderness Thoracic/Lumbar Spine: Lasegue's sign negative, pain with thoraco-lumbar ROM, thoraco-lumbar ROM limited, No thoracic spinal tenderness and lumbar spinal tenderness at L4 and at L5 Sacroiliac joints: bilaterally tender to palpation Psych Appearance: grossly normal Mental Status: mental status grossly normal Speech and movement: Normal speech and movement present Affect: normal affect Attitude: cooperative Thought process: Normal thought process present Thought content: Normal thought content present, suicidality (none), no hallucinations and No Depressive thoughts present Insight: Good insight present (Psych) Judgement: Good judgement present (Psych) Assessment & Plan Assessment & Plan (1) Sacroiliac joint pain: Code(s): M53.3 - Sacrococcygeal disorders, not elsewhere classified (2) Failed back syndrome, lumbar: Code(s): M96.1 - Postlaminectomy syndrome, not elsewhere classified (3) Lumbar spondylosis: Code(s): M47.816 - Spondylosis without myelopathy or radiculopathy, lumbar region (4) Opioid contract exists: Code(s): Z79.891 - MCC (current) use of opiate analgesic Plan Patient has shown accountability for her medication regimen and the pill counts were accurate. There is no evidence of misuse, abuse or diversion at this time. MassPat reviewed. She is aware of monitoring for side effects. Script sent for oxycodone 5 mg QID prn with advanced date of 11/09/23. Patient is aware to monitor for any side effects or intolerances and notify our office. All questions were answered and the patient is in agreement with the plan. Follow up in 4-5 weeks for a pill count or sooner if needed. Medications: Refilled oxycodone Partial Fill upon patient request. 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
[2023-10-30 13:04] VITALS: BP 140/64; PULSE 64; RESP 12; O2SAT 98; BMI 22.0
== END 2023-10-30 13:11 | disposition home or self-care (01) ==
PROVIDERS: PCP Physician Assistant; Visit Provider Nurse Practitioner Family
DX: M53.3 Sacrococcygeal disorders, not elsewhere classified (principal); M96.1 Postlaminectomy syndrome, not elsewhere classified; M47.816 Spondylosis without myelopathy or radiculopathy, lumbar region; Z79.891 Long term (current) use of opiate analgesic
CPT/HCPCS: 99214

== ENCOUNTER → 2023-10-30 12:49 | Outpatient (BNVA) | payer MEDICARE, MEDICAID, SELFPAY | PROVIDERS: PCP Physician Assistant; Visit Provider Nurse Practitioner Family | DX: Z51.81 Encounter for therapeutic drug level monitoring (principal); M53.3 Sacrococcygeal disorders, not elsewhere classified; M96.1 Postlaminectomy syndrome, not elsewhere classified; M47.816 Spondylosis without myelopathy or radiculopathy, lumbar region; Z79.891 Long term (current) use of opiate analgesic | CPT/HCPCS: 99212 ==

== ENCOUNTER → 2023-11-23 23:59 | Outpatient (BNV) | payer MEDICARE, MEDICAID, SELFPAY ==
--- NOTE | 2023-11-23 16:29 | MHC.OFFVIS ---
Intake Intake Visit Reasons: Remote HF Monitoring- [facility] Allergies sacubitril [From Entresto] Adverse Reaction (Severe, Verified 10/30/23 13:04) hyperkalemia valsartan [From Entresto] Adverse Reaction (Severe, Verified 10/30/23 13:04) hyperkalemia [facility] Medical History Heart failure with reduced ejection fraction Acute on chronic systolic (congestive) heart failure Lumbar spondylosis Ischemic cardiomyopathy COVID-19 vaccine series completed History of femoral angiogram Hiatal hernia CAD (coronary artery disease) AAA (abdominal aortic aneurysm) Hx of myocardial infarction Hypertension Peripheral vascular disease CKD (chronic kidney disease) stage 3, GFR 30-59 ml/min History of placement of internal cardiac defibrillator Cervical spondylosis Failed back syndrome, lumbar Surgical History Stented coronary artery Status post cardiac catheterization History of biliary duct stent placement 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 Sister Gynecologic cancer Social History Household Members: Family Household Members Other:: Son Housing: House Are you a primary healthcare administrator to a significant other at home: No Do you presently have visiting nurse or other home services: No Alcohol intake: never Patient Tobacco Use Status: Former Tobacco user Quit Date: 09/21/16 Tobacco use type: Cigarette Years Smoked: 40 e-Cigarette/Vaping Use: Never Used Second Hand Smoke Exposure: No Substance Use Type: Marijuana Advance Directives Date on File: 07/06/21 service: No Current occupational status: disabled Cognitive needs: No Hearing needs: No Vision needs: Yes (Glasses) Office Procedures Cardiac Device Check Cardiac Device Check Details: Remote heart failure report generated 11/23/2023. Heart failure parameters are stable [id number] Cardiac Device Interrogation, cardio physiologic monitor Procedure code (CPT) selection complete Assessment & Plan Assessment & Plan (1) ICD (implantable cardioverter-defibrillator) in place: Code(s): Z95.810 - Presence of automatic (implantable) cardiac defibrillator Plan: See above Coding Level of Care Code Procedure Only Diagnoses ICD (implantable cardioverter-defibrillator) in place Z95.810 CPT Codes Cardiac Device Check - Cardiac Device 15: [id number] Cardiac Device Interrogation, cardio physiologic monitor ([id number])
== END ==
PROVIDERS: PCP Physician Assistant; Visit Provider Internal Medicine Cardiovascular Disease
DX: I50.23 Acute on chronic systolic (congestive) heart failure (principal); Z95.810 Presence of automatic (implantable) cardiac defibrillator
CPT/HCPCS: 93297

== ENCOUNTER 2023-11-27 13:20 | Outpatient (AMB) | payer MEDICARE, MEDICAID, SELFPAY ==
--- NOTE | 2023-11-27 13:24 | A.OFFVIS_ITS ---
Intake Vital Signs 11/27/23 13:30 Height 4 ft 11 in Weight 111 lb 4 oz BMI 22.5 BP 134/66 Blood Pressure Location Lt brachial Position Sitting Respiration 14 Pulse 54 Pulse Source Pulse Oximeter Pulse Oximetry (%) 98 Oxygen Delivery Method Room Air Intake Visit Reasons: Pill Count Intake Note: Pain 7/10 Allergies sacubitril [From Entresto] Adverse Reaction (Severe, Verified 11/27/23 13:30) hyperkalemia valsartan [From Entresto] Adverse Reaction (Severe, Verified 11/27/23 13:30) hyperkalemia HPI HPI Comments History of Present Illness Details Patient presents today for a pill count. Patient is supposed to have #44 pills, in her possession has #45 pills. This demonstrates a responsible attitude in regards to the medication regimen. Patient reports mid to moderate analgesia, with no noted side effects. Patient continues to endorse lower back pain related to post laminectomy syndrome and sacroiliac joint pain. She is not candidate for neuromodulation due to internal cardiac defibrillator and not candidate for steroid injections due to osteoporosis. Patient is hesitant towards interventional treatments due to potential difficult access due to previous spinal fusion with cage. She would like to restart low dose gabapentin which she tolerated well in the past. Patient denies any fever, dizziness, chest pain, abdominal or groin pain, constipation, nausea, sedation, dizziness, or urinary retention. Denies any bladder or bowel dysfunction or saddle anesthesia. [facility] Medical History Heart failure with reduced ejection fraction Acute on chronic systolic (congestive) heart failure Lumbar spondylosis Ischemic cardiomyopathy COVID-19 vaccine series completed History of femoral angiogram Hiatal hernia CAD (coronary artery disease) AAA (abdominal aortic aneurysm) Hx of myocardial infarction Hypertension Peripheral vascular disease CKD (chronic kidney disease) stage 3, GFR 30-59 ml/min History of placement of internal cardiac defibrillator Cervical spondylosis Failed back syndrome, lumbar Surgical History Stented coronary artery Status post cardiac catheterization History of biliary duct stent placement 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 Sister Gynecologic cancer Social History Household Members: Family Household Members Other:: Son Housing: House Are you a primary manager intensive care to a significant other at home: No Do you presently have visiting nurse or other home services: No Alcohol intake: never Patient Tobacco Use Status: Former Tobacco user Quit Date: 09/21/16 Tobacco use type: Cigarette Years Smoked: 40 e-Cigarette/Vaping Use: Never Used Second Hand Smoke Exposure: No Substance Use Type: Marijuana Advance Directives Date on File: 07/06/21 service: No Current occupational status: disabled Cognitive needs: No Hearing needs: No Vision needs: Yes (Glasses) Review of Systems Const All systems reviewed & are unremarkable except as noted in HPI and below Physical Exam Vital Signs: Last Vital Signs Pulse 54 11/27/23 13:30 Resp 14 11/27/23 13:30 BP 134/66 11/27/23 13:30 Pulse Ox 98 11/27/23 13:30 Oxygen Delivery Method Room Air 11/27/23 13:30 BMI result Body Mass Index 22.5 On exam today: Appears afebrile. Alert and oriented. Mood and affect appropriate. Follows and participates in conversation appropriately. Respiratory effort is unlabored. No cough. Able to transition from sit to stand unassisted. Back/Spine/Pelvis Cervical Spine: cervical muscular tenderness and No Cervical spine tenderness Thoracic/Lumbar Spine: thoracic and lumbar spine normal to inspection, Thoracic/lumbar spine scar(s), Lasegue's sign positive bilateral and diffuse, pain with thoraco-lumbar ROM, thoraco-lumbar ROM limited, No thoracic spinal tenderness and lumbar spinal tenderness at L4 and at L5 Pelvis: buttock tenderness Sacroiliac joints: bilaterally tender to palpation (+Jimbo's) Psych Appearance: grossly normal Mental Status: mental status grossly normal Speech and movement: Normal speech and movement present Affect: normal affect Attitude: cooperative Thought process: Normal thought process present Thought content: Normal thought content present, suicidality (none), no hallucinations and No Depressive thoughts present Insight: Good insight present (Psych) Judgement: Good judgement present (Psych) Results Reviewed Results Reviewed: XR LUMBOSACRAL SPINE WITH OBLIQUES 04/27/23 CLINICAL INFORMATION: Postlaminectomy syndrome. COMPARISON: Radiographs dated 05/10/2019. TECHNIQUE: AP, both oblique, and lateral (neutral, flexion and extension) views of the lumbar spine. Lateral view of the lumbosacral junction. FINDINGS: There is bony demineralization. At L3-L4, there is a 4 mm anterolisthesis. There is well-maintained alignment status-post L4-L5 posterior fusion and discectomy, with intact posterior fixator rods, pedicular screws and disc spacer. No hardware failure or loosening is seen. There is no acute fracture or spondylolisthesis. No instability is seen with flexion or extension. No spondylolysis defect is seen on the oblique views. There are aortoiliac atherosclerotic calcifications. Iliac stent material is noted. IMPRESSION: 1. There is well-maintained alignment status-post L4-L5 posterior fusion and discectomies. No hardware failure or loosening is seen. 2. There is mild degenerative disc disease at L3-L4. 3. No instability is seen with flexion or extension. XR SACROILIAC JOINTS 04/27/23 CLINICAL INFORMATION: Sacrococcygeal disorders. COMPARISON: Hip radiographs dated 06/19/2021 and 11/06/2017. FINDINGS: Bones and soft tissues are normal. No fracture. Alignment is anatomic. Sacroiliac joint spaces are well-maintained without erosions or surrounding sclerosis. The acetabular joint spaces are well-maintained. The pubic symphysis is intact. Lumbar orthopedic hardware and right iliac stent material are noted. IMPRESSION: Normal sacroiliac joints. BONE DENSITOMETRY 03/05/21 CLINICAL INDICATION: Encounter for screening for osteoporosis. Prior lower lumbar fusion. COMPARISON: Baseline BD dated 12/03/2018. TECHNIQUE: Using a tab ticketbroker DXA System (software version: 13.1) manufactured by [employer], dual-energy x-ray absorptiometry was performed of the lumbar spine and left hip. The images are of good technical quality. Summary results are attached. FINDINGS: AP SPINE L1-L3 (excluding L4): The data of L1-L4 has been changed to exclude the L4 vertebral body, because hardware at this level would cause overestimation of lumbar spine density. Current: BMD 0.975 g/cm2, Z-score 0.5, T-score -1.6, osteopenia, 3.0% increase from baseline (<5% change is not significant). Baseline: BMD 0.947 g/cm2. LEFT FEMUR, NECK: Current: BMD 0.711 g/cm2, Z-score -0.5, T-score -2.4, osteopenia. Baseline: BMD 0.652 g/cm2. LEFT FEMUR, TOTAL: Current: BMD 0.669 g/cm2, Z-score -1.0, T-score -2.7, osteoporosis, 7.4% increase from baseline (<5% change is not significant). Baseline: BMD 0.623 g/cm2. IDENTIFIED RISK FACTORS: Osteoporosis, renal, history of fracture (adult). Early menopause, secondary osteoporosis, anticonvulsant. HISTORY OF FRACTURE: Humerus. MEDICATIONS: None listed. IMPRESSION: 1. DIAGNOSIS: Osteoporosis based on the lowest T-score value of -2.7 in the total femur applying World Health Organization criteria. Assessment & Plan Assessment & Plan (1) Failed back syndrome, lumbar: Code(s): M96.1 - Postlaminectomy syndrome, not elsewhere classified (2) Sacroiliac joint pain: Code(s): M53.3 - Sacrococcygeal disorders, not elsewhere classified (3) Lumbar spondylosis: Code(s): M47.816 - Spondylosis without myelopathy or radiculopathy, lumbar region (4) Opioid contract exists: Code(s): Z79.891 - jail (current) use of opiate analgesic Plan Patient has shown accountability for her medication regimen and the pill counts were accurate. There is no evidence of misuse, abuse or diversion at this time. [employer]t reviewed. Script sent for oxycodone 5 mg QID prn with advanced date of 12/06/23. Patient will also start gabapentin 300 mg at bedtime. She is aware to monitor for any side effects or intolerances and notify our office. All questions were answered and the patient is in agreement with the plan. Follow up in one month for a pill count or sooner if needed. Medications: New gabapentin 300 mg PO BEDTIME 30 days 30 caps 0RF pain M96.1 - Postlaminectomy syndrome, not elsewhere classified Refilled oxycodone Partial Fill upon patient request. 5 mg PO QID 30 days PRN 120 tabs 0RF pain (scale score 7-10) M47.816 - Spondylosis without myelopathy or radiculopathy, lumbar region, M96.1 - Postlaminectomy syndrome, not elsewhere classified, Z79.891 - cardiovascular specialist (current) use of opiate analgesic Coding Level of Care Code Est Pt Level 4 (53887) Diagnoses Failed back syndrome, lumbar M96.1 Sacroiliac joint pain M53.3 Lumbar spondylosis M47.816 Opioid contract exists Z79.891
[2023-11-27 13:30] VITALS: BP 134/66; PULSE 54; RESP 14; O2SAT 98; BMI 22.5
== END 2023-11-27 13:46 | disposition home or self-care (01) ==
PROVIDERS: PCP Physician Assistant; Visit Provider Nurse Practitioner Family
DX: M96.1 Postlaminectomy syndrome, not elsewhere classified (principal); M53.3 Sacrococcygeal disorders, not elsewhere classified; M47.816 Spondylosis without myelopathy or radiculopathy, lumbar region; Z79.891 Long term (current) use of opiate analgesic
CPT/HCPCS: 99214

== ENCOUNTER → 2023-11-27 13:20 | Outpatient (BNVA) | payer MEDICARE, MEDICAID, SELFPAY | PROVIDERS: PCP Physician Assistant; Visit Provider Nurse Practitioner Family | DX: Z51.81 Encounter for therapeutic drug level monitoring (principal); M96.1 Postlaminectomy syndrome, not elsewhere classified; M53.3 Sacrococcygeal disorders, not elsewhere classified; M47.816 Spondylosis without myelopathy or radiculopathy, lumbar region; Z79.891 Long term (current) use of opiate analgesic | CPT/HCPCS: 99212 ==

== ENCOUNTER → 2023-11-30 09:54 | Outpatient (REF) | payer MEDICARE, MEDICAID, SELFPAY ==
--- NOTE | ~2023-11-30 | NM_ITS ---
Myocardial perfusion study Indication: Preoperative cardiovascular risk stratification Technique: The patient was brought in for a Lexiscan perfusion study on 11/30/2023. Patient performed low-level exercise and was injected 0.4 mg of Lexiscan intravenously. Within a minute of injection, 25 mCi of sestamibi was given intravenously. Images were obtained using the SPECT gamma camera interlaced with the gating device. Images were obtained in supine position. Resting perfusion study was performed on 12/01/2023. Patient was administered 25 mCi of sestamibi intravenously at rest. Images were then obtained in supine position. Images obtained with and without CT attenuation. Total DLP 88 mGy-cm. Images were processed with the software and compared side to side in short axis, horizontal long axis and vertical long axis views. Findings: The stress perfusion study showed non attenuated images show absent uptake in the apex, anteroapical and inferoapical wall of the LV myocardium. Attenuated corrected images show similar findings there is mildly to moderately reduced uptake in the mid anterior as well as absent uptake in the distal septum of the LV myocardium. The gated study shows reduced LV systolic function with calculated LVEF of 33%. LV cavity is mildly to moderately size. The gated study shows absent wall thickening and contraction of apex and the adjacent segments. Resting study shows no change in perfusion pattern compared to stress perfusion study. Gating at rest reveals apical and anteroapical wall motion abnormality with ejection fraction at 29%. The findings are consistent with large area of transmural infarct in the LAD territory without reversible ischemia. NM/NM cardiolite stress test Impression: 1. Myocardial perfusion imaging study shows large area of transmural infarct in the LAD territory without reversible ischemia 2. Gated LVEF is 33% 3. Transient ischemic dilatation not present but LV cavity is dilated EKG is nondiagnostic for ischemia
--- NOTE | 2023-11-30 09:56 | CA_ITS ---
Acquisition Time: 2023-11-30 09:54:33 Total Exercise Time: 00:02:00 Test Indications: Screening for CAD Medications: SEE H Protocol: LEXISCAN Max HR: 096 BPM 63% of Pred: 151 BPM Max BP: 134/070 mmHG Max Work Load: 1.0 METS Pharmacologicals tress test with Lexiscan injeciton whle sitting and kicking her legs, without anginal symptoms, with one ,ventricular cuplet with normotensive response to injection, with nondiagnoisitic EKGs. Aminophylline 75mg IVP given to reverse Lexiscan. Nuclear images pending. Test reviewed with Dr. Le Referred By: Maxwell Le Overread By: Margaret Mcnamara
== END ==
LOC: HO.CARD 09:54
PROVIDERS: PCP Physician Assistant; Visit Provider Internal Medicine Cardiovascular Disease
DX: Z01.818 Encounter for other preprocedural examination (principal); I25.5 Ischemic cardiomyopathy; I25.10 Atherosclerotic heart disease of native coronary artery without angina pectoris; I73.9 Peripheral vascular disease, unspecified
CPT/HCPCS: 78452; 93017; A9500; J0280; J2785

== ENCOUNTER → 2023-11-30 09:56 | Outpatient (BNV) | payer MEDICARE, MEDICAID, SELFPAY | PROVIDERS: PCP Physician Assistant; Visit Provider Nurse Practitioner | DX: I25.10 Atherosclerotic heart disease of native coronary artery without angina pectoris (principal) | CPT/HCPCS: 78452; 93016; 93018 ==

== ENCOUNTER 2023-12-14 15:10 | Outpatient (AMB) | payer MEDICARE, MEDICAID, SELFPAY ==
[2023-12-14 15:15] VITALS: BP 110/60; PULSE 63; BMI 23.2
--- NOTE | 2023-12-14 15:15 | A.OFFVIS_ITS ---
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 Allergies sacubitril [From Entresto] Adverse Reaction (Severe, Verified 11/27/23 13:30) hyperkalemia valsartan [From Entresto] Adverse Reaction (Severe, Verified 11/27/23 13:30) hyperkalemia Medication List - Last Reconciled 12/14/23 by Maxwell Le MD alendronate 70 mg PO QWEEK aspirin (Adult Low Dose Aspirin) 81 mg PO DAILY atorvastatin 80 mg PO DAILY blood pressure monitor As directed calcium carbonate (Oyster Shell Calcium) 500 mg PO DAILY 90 days diphenoxylate-atropine 2.5-0.025 mg 1 tab PO BID PRN ezetimibe 10 mg PO DAILY furosemide 20 mg PO DAILY gabapentin 300 mg PO BEDTIME 30 days hydroxyzine HCl 20 mg (2 x 10 mg) PO BEDTIME 30 days metoprolol succinate ER 50 mg PO DAILY oxycodone 5 mg PO QID PRN 30 days rivaroxaban (Xarelto) 2.5 mg PO BID HPI HPI Comments History of Present Illness Details Luci comes for follow-up. Recent myocardial perfusion imaging showed mostly myocardial infarction in the LAD territory without any reversible ischemia. She denies any cardiac symptoms. She complains of just more fatigued. Denies any exertional chest pain or shortness of breath. Denies any orthopnea, PND, leg edema. She says limited and does not exercise much due to claudication. She has had no follow-up or appointments with vascular surgery. She takes all her medications. No palpitations, lightheadedness, ICD discharge. [facility] Medical History Heart failure with reduced ejection fraction Acute on chronic systolic (congestive) heart failure Lumbar spondylosis Ischemic cardiomyopathy COVID-19 vaccine series completed History of femoral angiogram Hiatal hernia CAD (coronary artery disease) AAA (abdominal aortic aneurysm) Hx of myocardial infarction Hypertension Peripheral vascular disease CKD (chronic kidney disease) stage 3, GFR 30-59 ml/min History of placement of internal cardiac defibrillator Cervical spondylosis Failed back syndrome, lumbar Surgical History Stented coronary artery Status post cardiac catheterization History of biliary duct stent placement 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 Sister Gynecologic cancer Social History Household Members: Family Household Members Other:: Son Housing: House Are you a primary personal care attendant to a significant other at home: No Do you presently have visiting nurse or other home services: No Alcohol intake: never Patient Tobacco Use Status: Former Tobacco user Quit Date: 09/21/16 Tobacco use type: Cigarette Years Smoked: 40 e-Cigarette/Vaping Use: Never Used Second Hand Smoke Exposure: No Substance Use Type: Marijuana Advance Directives Date on File: 07/06/21 service: No Current occupational status: disabled Cognitive needs: No Hearing needs: No Vision needs: Yes (Glasses) Review of Systems Const Denies chills, Denies fatigue, Denies fever(s), Denies frequent falls, Denies weakness, Denies weight gain and Denies weight loss ENT Denies dizziness Card Denies chest pain, Denies leg edema, Denies lightheadedness, Denies palpitations, Denies dyspnea, Denies dyspnea on exertion, Denies orthopnea and Denies other (loss of consciousness) Resp Denies cough, Denies dyspnea and Denies dyspnea on exertion GI Denies hematochezia and Denies change in stool character Musc Denies abnormal gait, Denies muscle weakness, Denies numbness, Denies radiating pain into limb and Denies tingling Neuro Denies abnormal gait, Denies dizziness, Denies frequent falls, Denies numbness, Denies tingling and Denies weakness Endo Denies fatigue and Denies palpitations Physical Exam Vital Signs: Last Vital Signs Pulse 63 12/14/23 15:15 BP 110/60 12/14/23 15:15 BMI result Body Mass Index 23.2 Const General: cooperative, comfortable, no acute distress, alert and awake Nutritional Appearance: thin and other (Frail elderly woman) Orientation/consciousness: patient oriented x3 Limitations: no limitations Neck Neck: Yes normal visual inspection and Yes no JVD Carotids: bruit Resp Effort & Inspection: normal respiratory effort Auscultation: clear to auscultation bilaterally, no rales, no rhonchi and no wheezes Cardio Rate: regular rate Rhythm: regular rhythm Heart sounds: S1 normal heart sound present, S2 normal heart sound present, no gallops, no murmurs and no rubs Peripheral pulses: other (Reduced pulses in the lower extremities) GI Inspection: Yes normal to inspection Skin General skin exam: no rashes or lesions noted and ecchymosis Neuro General: patient oriented x3 and no focal motor deficits Extrem Other: Right groin site with resolving ecchymosis, palpable femoral pulse noted, no bruit General: Yes normal to inspection and No no pedal edema Office Procedures Cardiac Device Check Cardiac Device Check Details: Single-chamber [facility] ICD in place. Programmed in VVI at 40 beats per. No ventricular arrhythmias noted. Ventricular sensing is excellent. Ventricular pacing thresholds adequate and reprogrammed to provide adequate safety. Pacing and shock lead impedance is stable. Battery life is at 4 and half years [id number]-PB Cardiac Device Check, single lead implantable defibrillator Procedure code (CPT) selection complete Assessment & Plan Assessment & Plan (1) CAD (coronary artery disease): Code(s): I25.10 - Atherosclerotic heart disease of habematolel coronary artery without angina pectoris Qualifiers: Associated angina: without angina Coronary Disease-Associated Artery/Lesion type: habematolel artery [place] vs. transplanted heart: habematolel heart Qualified Code(s): I25.10 - Atherosclerotic heart disease of habematolel coronary artery without angina pectoris Plan: CAD status post prior coronary artery bypass grafting with recent myocardial perfusion imaging showing mostly infarcted myocardium in the LAD territory. Continue aggressive medical therapy. Continue low-dose aspirin therapy. Continue high-intensity statin therapy along with ezetimibe therapy. Target goal LDL closer to 50 mg/dL. Blood pressure is currently well optimized. Given diffuse vascular disease agree with low-dose anticoagulant therapy. Semi annual renal function test should be pursued. No further invasive testing is recommended. Encouraged to increase activity level. Consider phase 2 cardiac rehabilitation to improve claudication distance. (2) Heart failure with reduced ejection fraction: Code(s): I50.20 - Unspecified systolic (congestive) heart failure Plan: Heart failure with reduced ejection fraction, clinically euvolemic and well compensated. Continue current diuretic dose. Continue current neurohormonal modulation with metoprolol. Not on any other due to allergies to Entresto as less valsartan. Continue monitor clinically for signs and symptoms of heart failure currently on low-dose of Lasix. Daily weight monitoring avoidance of salt loading was discussed. (3) ICD (implantable cardioverter-defibrillator) in place: Code(s): Z95.810 - Presence of automatic (implantable) cardiac defibrillator Plan: ICD in place working well. Reprogrammed for adequate functioning. Will follow remotely and follow up in the clinic in 6 months time. Thank you for allowing me to partake in the care Orders: Referrals Interventional Radiology Referral I73.9 - Peripheral vascular disease, unspecified Maxwell Le MD Medications: Changed From diphenoxylate-atropine 2.5-0.025 mg 1 tab PO BID 30 days PRN 60 tabs 3RF diarrhea K58.0 - Irritable bowel syndrome with diarrhea To diphenoxylate-atropine 2.5-0.025 mg 1 tab PO BID PRN diarrhea K58.0 - Irritable bowel syndrome with diarrhea Garcia Muñiz MD Coding Level of Care Code Est Pt Level 4 (44123) Diagnoses Coronary artery disease involving habematolel coronary artery of habematolel heart without angina pectoris I25.10 Associated angina: without angina Coronary Disease-Associated Artery/Lesion type: habematolel artery [place] vs. transplanted heart: habematolel heart Heart failure with reduced ejection fraction I50.20 ICD (implantable cardioverter-defibrillator) in place Z95.810 CPT Codes Cardiac Device Check - Cardiac Device 4: 68632-[id number] Cardiac Device Check, single lead implantable defibrillator ([id number])
== END 2023-12-14 15:34 | disposition home or self-care (01) ==
PROVIDERS: PCP Physician Assistant; Referring Provider Physician Assistant; Visit Provider Internal Medicine
DX: I25.10 Atherosclerotic heart disease of native coronary artery without angina pectoris (principal); I50.20 Unspecified systolic (congestive) heart failure; Z95.810 Presence of automatic (implantable) cardiac defibrillator
CPT/HCPCS: 93282; 99214

== ENCOUNTER → 2023-12-14 15:10 | Outpatient (BNVA) | payer MEDICARE, MEDICAID, SELFPAY | PROVIDERS: PCP Physician Assistant; Visit Provider Internal Medicine | DX: Z45.02 Encounter for adjustment and management of automatic implantable cardiac defibrillator (principal); I25.10 Atherosclerotic heart disease of native coronary artery without angina pectoris; I50.20 Unspecified systolic (congestive) heart failure | CPT/HCPCS: 99212 ==

== ENCOUNTER → 2023-12-23 23:59 | Outpatient (BNV) | payer MEDICARE, MEDICAID, SELFPAY ==
--- NOTE | 2023-12-24 14:32 | A.OFFVIS_ITS ---
Intake Intake Visit Reasons: Remote device check- [facility] Allergies sacubitril [From Entresto] Adverse Reaction (Severe, Verified 11/27/23 13:30) hyperkalemia valsartan [From Entresto] Adverse Reaction (Severe, Verified 11/27/23 13:30) hyperkalemia [facility] Medical History Heart failure with reduced ejection fraction Acute on chronic systolic (congestive) heart failure Lumbar spondylosis Ischemic cardiomyopathy COVID-19 vaccine series completed History of femoral angiogram Hiatal hernia CAD (coronary artery disease) AAA (abdominal aortic aneurysm) Hx of myocardial infarction Hypertension Peripheral vascular disease CKD (chronic kidney disease) stage 3, GFR 30-59 ml/min History of placement of internal cardiac defibrillator Cervical spondylosis Failed back syndrome, lumbar Surgical History Stented coronary artery Status post cardiac catheterization History of biliary duct stent placement 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 Sister Gynecologic cancer Social History Household Members: Family Household Members Other:: Son Housing: House Are you a primary child care centre director to a significant other at home: No Do you presently have visiting nurse or other home services: No Alcohol intake: never Patient Tobacco Use Status: Former Tobacco user Quit Date: 09/21/16 Tobacco use type: Cigarette Years Smoked: 40 e-Cigarette/Vaping Use: Never Used Second Hand Smoke Exposure: No Substance Use Type: Marijuana Advance Directives Date on File: 07/06/21 service: No Current occupational status: disabled Cognitive needs: No Hearing needs: No Vision needs: Yes (Glasses) Office Procedures Cardiac Device Check Cardiac Device Check Details: Remote ICD report generated 12/23/2023. ICD function is adequate [id number] Cardiac Interrogation, implant defibrillator w/interim Procedure code (CPT) selection complete Assessment & Plan Assessment & Plan (1) ICD (implantable cardioverter-defibrillator) in place: Code(s): Z95.810 - Presence of automatic (implantable) cardiac defibrillator Plan: See above Coding Level of Care Code Procedure Only Diagnoses ICD (implantable cardioverter-defibrillator) in place Z95.810 CPT Codes Cardiac Device Check - Cardiac Device 13: [id number] Cardiac Interrogation, implant defibrillator w/interim ([id number])
== END ==
PROVIDERS: PCP Physician Assistant; Visit Provider Internal Medicine Cardiovascular Disease
DX: Z45.02 Encounter for adjustment and management of automatic implantable cardiac defibrillator (principal)
CPT/HCPCS: 93295

== ENCOUNTER → 2023-12-25 23:59 | Outpatient (BNV) | payer MEDICARE, MEDICAID, SELFPAY ==
--- NOTE | 2023-12-28 16:10 | MHC.OFFVIS ---
Intake Intake Visit Reasons: Remote HF monitoring- [facility] Allergies sacubitril [From Entresto] Adverse Reaction (Severe, Verified 12/28/23 14:00) hyperkalemia valsartan [From Entresto] Adverse Reaction (Severe, Verified 12/28/23 14:00) hyperkalemia [facility] Medical History Heart failure with reduced ejection fraction Acute on chronic systolic (congestive) heart failure Lumbar spondylosis Ischemic cardiomyopathy COVID-19 vaccine series completed History of femoral angiogram Hiatal hernia CAD (coronary artery disease) AAA (abdominal aortic aneurysm) Hx of myocardial infarction Hypertension Peripheral vascular disease CKD (chronic kidney disease) stage 3, GFR 30-59 ml/min History of placement of internal cardiac defibrillator Cervical spondylosis Failed back syndrome, lumbar Surgical History Stented coronary artery Status post cardiac catheterization History of biliary duct stent placement 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 Sister Gynecologic cancer Social History Household Members: Family Household Members Other:: Son Housing: House Are you a primary nanny caregiver to a significant other at home: No Do you presently have visiting nurse or other home services: No Alcohol intake: never Patient Tobacco Use Status: Former Tobacco user Quit Date: 09/21/16 Tobacco use type: Cigarette Years Smoked: 40 e-Cigarette/Vaping Use: Never Used Second Hand Smoke Exposure: No Substance Use Type: Marijuana Advance Directives Date on File: 07/06/21 service: No Current occupational status: disabled Cognitive needs: No Hearing needs: No Vision needs: Yes (Glasses) Office Procedures Cardiac Device Check Cardiac Device Check Details: Remote heart failure report generated 12/25/2023. Heart failure parameters are stable [id number] Cardiac Device Interrogation, cardio physiologic monitor Procedure code (CPT) selection complete Assessment & Plan Assessment & Plan (1) ICD (implantable cardioverter-defibrillator) in place: Code(s): Z95.810 - Presence of automatic (implantable) cardiac defibrillator Plan: See above Coding Level of Care Code Procedure Only Diagnoses ICD (implantable cardioverter-defibrillator) in place Z95.810 CPT Codes Cardiac Device Check - Cardiac Device 15: [id number] Cardiac Device Interrogation, cardio physiologic monitor ([id number])
== END ==
PROVIDERS: PCP Physician Assistant; Visit Provider Internal Medicine Cardiovascular Disease
DX: Z45.02 Encounter for adjustment and management of automatic implantable cardiac defibrillator (principal)
CPT/HCPCS: 93297

== ENCOUNTER 2023-12-28 13:14 | Outpatient (AMB) | payer MEDICARE, MEDICAID, SELFPAY ==
--- NOTE | 2023-12-28 13:23 | A.OFFVIS_ITS ---
Intake Vital Signs 12/28/23 13:59 Height 4 ft 11 in Weight 114 lb BMI 23.0 BP 149/67 H Blood Pressure Location Rt brachial Position Sitting Pulse 64 Pulse Source Pulse Oximeter Pulse Oximetry (%) 97 Oxygen Delivery Method Room Air Intake Visit Reasons: Pill Count/ random UDS Intake Note: Luci comes in today for a pill count to oxycodone, patient should have 36 tablets and presents with 39 tablets which she last took today 12/28/23 at 10:30am. Pain today 02/28. Patient will also have a random UDS done today 12/28/23. Cardiopulmonary Technician And Eeg Tech Required: No Accompanied by: Self / Same As Patient Allergies sacubitril [From Entresto] Adverse Reaction (Severe, Verified 12/28/23 14:00) hyperkalemia valsartan [From Entresto] Adverse Reaction (Severe, Verified 12/28/23 14:00) hyperkalemia HPI HPI Comments History of Present Illness Details Patient presents today for a pill count. Patient is supposed to have #36 pills, in her possession has #39 pills. This demonstrates a responsible attitude in regards to the medication regimen. Patient reports mid to moderate analgesia, with no noted side effects. Patient continues to endorse lower back pain related to post laminectomy syndrome and sacroiliac joint pain. She has tried gabapentin at bedtime and reports no benefit with use but increased fatigue. Patient is not candidate for neuromodulation due to internal cardiac defibrillator or steroid injections due to osteoporosis. Patient is hesitant towards interventional treatments due to potential difficult access due to previous spinal fusion with cage. Patient denies any fever, dizziness, chest pain, abdominal or groin pain, constipation, nausea, sedation, dizziness, or urinary retention. Denies any bladder or bowel dysfunction or saddle anesthesia. [facility] Medical History Heart failure with reduced ejection fraction Acute on chronic systolic (congestive) heart failure Lumbar spondylosis Ischemic cardiomyopathy COVID-19 vaccine series completed History of femoral angiogram Hiatal hernia CAD (coronary artery disease) AAA (abdominal aortic aneurysm) Hx of myocardial infarction Hypertension Peripheral vascular disease CKD (chronic kidney disease) stage 3, GFR 30-59 ml/min History of placement of internal cardiac defibrillator Cervical spondylosis Failed back syndrome, lumbar Surgical History Stented coronary artery Status post cardiac catheterization History of biliary duct stent placement 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 Sister Gynecologic cancer Social History Household Members: Family Household Members Other:: Son Housing: House Are you a primary senior care provider to a significant other at home: No Do you presently have visiting nurse or other home services: No Alcohol intake: never Patient Tobacco Use Status: Former Tobacco user Quit Date: 09/21/16 Tobacco use type: Cigarette Years Smoked: 40 e-Cigarette/Vaping Use: Never Used Second Hand Smoke Exposure: No Substance Use Type: Marijuana Advance Directives Date on File: 07/06/21 service: No Current occupational status: disabled Cognitive needs: No Hearing needs: No Vision needs: Yes (Glasses) Review of Systems Const All systems reviewed & are unremarkable except as noted in HPI and below Physical Exam Vital Signs: Last Vital Signs Pulse 64 12/28/23 13:59 BP 149/67 H 12/28/23 13:59 Pulse Ox 97 12/28/23 13:59 Oxygen Delivery Method Room Air 12/28/23 13:59 BMI result Body Mass Index 23.0 On exam today: Appears afebrile. Alert and oriented. Mood and affect appropriate. Follows and participates in conversation appropriately. Respiratory effort is unlabored. No cough. Able to transition from sit to stand unassisted. Back/Spine/Pelvis Cervical Spine: loss of normal cervical lordosis and No Cervical spine te nderness Thoracic/Lumbar Spine: thoracic and lumbar spine normal to inspection, Thoracic/lumbar spine scar(s), Lasegue's sign negative, pain with thoraco-lumbar ROM, thoraco-lumbar ROM limited, No thoracic spinal tenderness and lumbar spinal tenderness at L4 and at L5 Pelvis: buttock tenderness Sacroiliac joints: bilaterally tender to palpation (+Jimbo's) Psych Appearance: grossly normal Mental Status: mental status grossly normal Speech and movement: Normal speech and movement present Affect: normal affect Attitude: cooperative Thought process: Normal thought process present Thought content: Normal thought content present, suicidality (none), no hallucinations and No Depressive thoughts present Insight: Good insight present (Psych) Judgement: Good judgement present (Psych) Results Reviewed Results Reviewed: XR LUMBOSACRAL SPINE WITH OBLIQUES 04/27/23 CLINICAL INFORMATION: Postlaminectomy syndrome. COMPARISON: Radiographs dated 05/10/2019. TECHNIQUE: AP, both oblique, and lateral (neutral, flexion and extension) views of the lumbar spine. Lateral view of the lumbosacral junction. FINDINGS: There is bony demineralization. At L3-L4, there is a 4 mm anterolisthesis. There is well-maintained alignment status-post L4-L5 posterior fusion and discectomy, with intact posterior fixator rods, pedicular screws and disc spacer. No hardware failure or loosening is seen. There is no acute fracture or spondylolisthesis. No instability is seen with flexion or extension. No spondylolysis defect is seen on the oblique views. There are aortoiliac atherosclerotic calcifications. Iliac stent material is noted. IMPRESSION: 1. There is well-maintained alignment status-post L4-L5 posterior fusion and discectomies. No hardware failure or loosening is seen. 2. There is mild degenerative disc disease at L3-L4. 3. No instability is seen with flexion or extension. XR SACROILIAC JOINTS 04/27/23 CLINICAL INFORMATION: Sacrococcygeal disorders. COMPARISON: Hip radiographs dated 06/19/2021 and 11/06/2017. FINDINGS: Bones and soft tissues are normal. No fracture. Alignment is anatomic. Sacroiliac joint spaces are well-maintained without erosions or surrounding sclerosis. The acetabular joint spaces are well-maintained. The pubic symphysis is intact. Lumbar orthopedic hardware and right iliac stent material are noted. IMPRESSION: Normal sacroiliac joints. BONE DENSITOMETRY 03/05/21 CLINICAL INDICATION: Encounter for screening for osteoporosis. Prior lower lumbar fusion. COMPARISON: Baseline BD dated 12/03/2018. TECHNIQUE: Using a [employer] DXA System (software version: 13.1) manufactured by [employer], dual-energy x-ray absorptiometry was performed of the lumbar spine and left hip. The images are of good technical quality. Summary results are attached. FINDINGS: AP SPINE L1-L3 (excluding L4): The data of L1-L4 has been changed to exclude the L4 vertebral body, because hardware at this level would cause overestimation of lumbar spine density. Current: BMD 0.975 g/cm2, Z-score 0.5, T-score -1.6, osteopenia, 3.0% increase from baseline (<5% change is not significant). Baseline: BMD 0.947 g/cm2. LEFT FEMUR, NECK: Current: BMD 0.711 g/cm2, Z-score -0.5, T-score -2.4, osteopenia. Baseline: BMD 0.652 g/cm2. LEFT FEMUR, TOTAL: Current: BMD 0.669 g/cm2, Z-score -1.0, T-score -2.7, osteoporosis, 7.4% increase from baseline (<5% change is not significant). Baseline: BMD 0.623 g/cm2. IDENTIFIED RISK FACTORS: Osteoporosis, renal, history of fracture (adult). Early menopause, secondary osteoporosis, anticonvulsant. HISTORY OF FRACTURE: Humerus. MEDICATIONS: None listed. IMPRESSION: 1. DIAGNOSIS: Osteoporosis based on the lowest T-score value of -2.7 in the total femur applying World Health Organization criteria. Assessment & Plan Assessment & Plan (1) Failed back syndrome, lumbar: Code(s): M96.1 - Postlaminectomy syndrome, not elsewhere classified (2) Sacroiliac joint pain: Code(s): M53.3 - Sacrococcygeal disorders, not elsewhere classified (3) Lumbar spondylosis: Code(s): M47.816 - Spondylosis without myelopathy or radiculopathy, lumbar region (4) Opioid contract exists: Code(s): Z79.891 - correction (current) use of opiate analgesic Plan Patient has shown accountability for her medication regimen and the pill counts were accurate. There is no evidence of misuse, abuse or diversion at this time. Auctomatict reviewed. Script sent for oxycodone 5 mg QID prn with advanced date of 01/07/24. Will discontinue gabapentin due to ineffectiveness. All questions were answered and the patient is in agreement with the plan. Follow up in 4-5 weeks for a pill count or sooner if needed. Medications: Refilled oxycodone Partial Fill upon patient request. 5 mg PO QID PRN 120 tabs 0RF pain (scale score 7-10) 30 days M47.816 - Spondylosis without myelopathy or radiculopathy, lumbar region, M96.1 - Postlaminectomy syndrome, not elsewhere classified, Z79.891 - correction (current) use of opiate analgesic Discontinued gabapentin Discontinued Reason: Patient no longer taking 300 mg PO BEDTIME 30 days 30 caps 0RF pain M96.1 - Postlaminectomy syndrome, not elsewhere classified Coding Level of Care Code Est Pt Level 4 (16694) Diagnoses Failed back syndrome, lumbar M96.1 Sacroiliac joint pain M53.3 Lumbar spondylosis M47.816 Opioid contract exists Z79.891
[2023-12-28 13:59] VITALS: BP 149/67; PULSE 64; O2SAT 97; BMI 23.0
== END 2023-12-28 13:35 | disposition home or self-care (01) ==
PROVIDERS: PCP Physician Assistant; Visit Provider Nurse Practitioner Family
DX: M96.1 Postlaminectomy syndrome, not elsewhere classified (principal); M53.3 Sacrococcygeal disorders, not elsewhere classified; M47.816 Spondylosis without myelopathy or radiculopathy, lumbar region; Z79.891 Long term (current) use of opiate analgesic
CPT/HCPCS: 99214

== ENCOUNTER → 2023-12-28 13:14 | Outpatient (BNVA) | payer MEDICARE, MEDICAID, SELFPAY | PROVIDERS: PCP Physician Assistant; Visit Provider Nurse Practitioner Family | DX: Z51.81 Encounter for therapeutic drug level monitoring (principal); M96.1 Postlaminectomy syndrome, not elsewhere classified; M53.3 Sacrococcygeal disorders, not elsewhere classified; M47.816 Spondylosis without myelopathy or radiculopathy, lumbar region; Z79.891 Long term (current) use of opiate analgesic | CPT/HCPCS: 99212 ==

== ENCOUNTER 2024-01-25 12:57 | Outpatient (AMB) | payer MEDICARE, MEDICAID, SELFPAY ==
--- NOTE | 2024-01-25 12:59 | A.OFFVIS_ITS ---
Vital Signs 01/25/24 13:05 Height 4 ft 11 in Weight 112 lb 2 oz BMI 22.6 BP 140/60 H Blood Pressure Location Rt brachial Position Sitting Pulse 56 Pulse Source Pulse Oximeter Pulse Oximetry (%) 96 Oxygen Delivery Method Room Air Intake Visit Reasons: PILL COUNT Intake Note: Luci comes in today for a pill count to oxycodone, patient should have 44 tablets and presents with 43 tablets which she last took today 01/25/24 at 12pm. Pain today 02/28. Milk Handler Required: No Accompanied by: Self / Same As Patient Allergies sacubitril [From Entresto] Adverse Reaction (Severe, Verified 01/25/24 13:05) hyperkalemia valsartan [From Entresto] Adverse Reaction (Severe, Verified 01/25/24 13:05) hyperkalemia HPI Comments Details: Patient presents today for a pill count. Patient is supposed to have #44 pills, in her possession has #43 pills. This demonstrates a responsible attitude in regards to the medication regimen. Patient reports mid to moderate analgesia, with no noted side effects. Patient denies any fever, dizziness, chest pain, abdominal or groin pain, constipation, nausea, sedation, dizziness, or urinary retention. She reports current medication regime allows her to be less symptomatic and more functional. [facility] Medical History Heart failure with reduced ejection fraction Acute on chronic systolic (congestive) heart failure Lumbar spondylosis Ischemic cardiomyopathy COVID-19 vaccine series completed History of femoral angiogram Hiatal hernia CAD (coronary artery disease) AAA (abdominal aortic aneurysm) Hx of myocardial infarction Hypertension Peripheral vascular disease CKD (chronic kidney disease) stage 3, GFR 30-59 ml/min History of placement of internal cardiac defibrillator Cervical spondylosis Failed back syndrome, lumbar Surgical History Stented coronary artery Status post cardiac catheterization History of biliary duct stent placement 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 Sister Gynecologic cancer Social History Household Members: Family Household Members Other:: Son Housing: House Are you a primary animal care worker to a significant other at home: No Do you presently have visiting nurse or other home services: No Alcohol intake: never Patient Tobacco Use Status: Former Tobacco user Quit Date: 09/21/16 Tobacco use type: Cigarette Years Smoked: 40 e-Cigarette/Vaping Use: Never Used Second Hand Smoke Exposure: No Substance Use Type: Marijuana Advance Directives Date on File: 07/06/21 service: No Current occupational status: disabled Cognitive needs: No Hearing needs: No Vision needs: Yes (Glasses) Review of Systems Const All systems reviewed & are unremarkable except as noted in HPI and below Physical Exam Vital Signs: Last Vital Signs Pulse 56 01/25/24 13:05 BP 140/60 H 01/25/24 13:05 Pulse Ox 96 01/25/24 13:05 Oxygen Delivery Method Room Air 01/25/24 13:05 BMI result Body Mass Index 22.6 On exam today: Appears afebrile. Alert and oriented. Mood and affect appropriate. Follows and participates in conversation appropriately. Respiratory effort is unlabored. No cough. Able to transition from sit to stand unassisted. Back/Spine/Pelvis Cervical Spine: loss of normal cervical lordosis, cervical muscular tenderness and No Cervical spine tenderness Thoracic/Lumbar Spine: thoracic and lumbar spine normal to inspection, Thoracic/lumbar spine scar(s), Lasegue's sign negative, straight leg raise negative bilaterally, pain with thoraco-lumbar ROM, thoraco-lumbar ROM limited, No thoracic spinal tenderness and lumbar spinal tenderness at L4 and at L5 Pelvis: buttock tenderness Sacroiliac joints: bilaterally tender to palpation (+Jimbo's) Psych Appearance: grossly normal Mental Status: mental status grossly normal Speech and movement: Normal speech and movement present Affect: normal affect Attitude: cooperative Thought process: Normal thought process present Thought content: Normal thought content present, suicidality (none), no hallucinations and No Depressive thoughts present Insight: Good insight present (Psych) Judgement: Good judgement present (Psych) Results Reviewed Results Reviewed: XR LUMBOSACRAL SPINE WITH OBLIQUES 04/27/23 CLINICAL INFORMATION: Postlaminectomy syndrome. COMPARISON: Radiographs dated 05/10/2019. TECHNIQUE: AP, both oblique, and lateral (neutral, flexion and extension) views of the lumbar spine. Lateral view of the lumbosacral junction. FINDINGS: There is bony demineralization. At L3-L4, there is a 4 mm anterolisthesis. There is well-maintained alignment status-post L4-L5 posterior fusion and discectomy, with intact posterior fixator rods, pedicular screws and disc spacer. No hardware failure or loosening is seen. There is no acute fracture or spondylolisthesis. No instability is seen with flexion or extension. No spondylolysis defect is seen on the oblique views. There are aortoiliac atherosclerotic calcifications. Iliac stent material is noted. IMPRESSION: 1. There is well-maintained alignment status-post L4-L5 posterior fusion and discectomies. No hardware failure or loosening is seen. 2. There is mild degenerative disc disease at L3-L4. 3. No instability is seen with flexion or extension. XR SACROILIAC JOINTS 04/27/23 CLINICAL INFORMATION: Sacrococcygeal disorders. COMPARISON: Hip radiographs dated 06/19/2021 and 11/06/2017. FINDINGS: Bones and soft tissues are normal. No fracture. Alignment is anatomic. Sacroiliac joint spaces are well-maintained without erosions or surrounding sclerosis. The acetabular joint spaces are well-maintained. The pubic symphysis is intact. Lumbar orthopedic hardware and right iliac stent material are noted. IMPRESSION: Normal sacroiliac joints. BONE DENSITOMETRY 03/05/21 Osteoporosis based on the lowest T-score value of -2.7 in the total femur applying World Health Organization criteria. Assessment & Plan Assessment & Plan (1) Failed back syndrome, lumbar: Code(s): M96.1 - Postlaminectomy syndrome, not elsewhere classified Category: Medical (2) Sacroiliac joint pain: Code(s): M53.3 - Sacrococcygeal disorders, not elsewhere classified Category: Medical (3) Lumbar spondylosis: Code(s): M47.816 - Spondylosis without myelopathy or radiculopathy, lumbar region Category: Medical (4) Opioid contract exists: Code(s): Z79.891 - shelter (current) use of opiate analgesic Category: Medical Plan Patient has shown accountability for her medication regimen and the pill counts were accurate. There is no evidence of misuse, abuse or diversion at this time. Fly6 reviewed. Script sent for oxycodone 5 mg QID prn with advanced date of 02/04/24. Will discontinue gabapentin due to ineffectiveness. All questions were answered and the patient is in agreement with the plan. Follow up in 4-5 weeks for a pill count or sooner if needed. Medications: Refilled oxycodone Partial Fill upon patient request. 5 mg PO QID 30 days PRN 120 tabs 0RF pain (scale score 7-10) M47.816 - Spondylosis without myelopathy or radiculopathy, lumbar region, M96.1 - Postlaminectomy syndrome, not elsewhere classified, Z79.891 - intermission coordinator (current) use of opiate analgesic Coding Level of Care Code Est Pt Level 4 (58425) Diagnoses Failed back syndrome, lumbar M96.1 Sacroiliac joint pain M53.3 Lumbar spondylosis M47.816 Opioid contract exists Z79.891
[2024-01-25 13:05] VITALS: BP 140/60; PULSE 56; O2SAT 96; BMI 22.6
== END 2024-01-25 13:11 | disposition home or self-care (01) ==
PROVIDERS: PCP Physician Assistant; Visit Provider Nurse Practitioner Family
DX: M96.1 Postlaminectomy syndrome, not elsewhere classified (principal); M53.3 Sacrococcygeal disorders, not elsewhere classified; M47.816 Spondylosis without myelopathy or radiculopathy, lumbar region; Z79.891 Long term (current) use of opiate analgesic
CPT/HCPCS: 99213

== ENCOUNTER → 2024-01-25 12:57 | Outpatient (BNVA) | payer MEDICARE, MEDICAID, SELFPAY | PROVIDERS: PCP Physician Assistant; Visit Provider Nurse Practitioner Family | DX: Z51.81 Encounter for therapeutic drug level monitoring (principal); M96.1 Postlaminectomy syndrome, not elsewhere classified; M53.3 Sacrococcygeal disorders, not elsewhere classified; M47.816 Spondylosis without myelopathy or radiculopathy, lumbar region; Z79.891 Long term (current) use of opiate analgesic | CPT/HCPCS: 99212 ==

== ENCOUNTER 2024-01-26 11:26 | Outpatient (REF) | payer MEDICARE, MEDICAID, SELFPAY ==
--- NOTE | ~2024-01-26 | MM_ITS ---
EXAMINATION: MM SCREENING DIGITAL BREAST TOMOSYNTHESIS, BILATERAL CLINICAL INFORMATION: Screening. Asymptomatic. COMPARISON: Mammography: This study is compared with prior exams dating back to 2018. TECHNIQUE: Digital breast tomosynthesis is performed in both the craniocaudal and mediolateral oblique views along with computer-aided detection (CAD). Synthesized 2D images are generated from the tomosynthesis. FINDINGS: There are scattered areas of fibroglandular density (ACR BI-RADS breast composition Category b). There are no significant masses, abnormal calcifications, or other abnormalities. There is a pacemaker in the superior aspect of the left side of the chest. MM/MM tomosynthesis screening BI IMPRESSION: No mammographic evidence of malignancy. ASSESSMENT: BI-RADS BI-RADS 1 - Negative RECOMMENDATION: Routine annual mammography screening. 1 year F/U This examination should not preclude the clinical evaluation of a suspicious palpable abnormality. This patient's information was entered into a reminder system with a target due date for their next mammogram.
== END 2024-01-26 11:27 | disposition home or self-care (01) ==
LOC: HO.MAMMO 11:26
PROVIDERS: PCP Physician Assistant; Visit Provider Physician Assistant
DX: Z12.31 Encounter for screening mammogram for malignant neoplasm of breast (principal)
CPT/HCPCS: 77063; 77067

== ENCOUNTER → 2024-01-26 11:30 | Outpatient (BNV) | payer MEDICARE, MEDICAID, SELFPAY | PROVIDERS: PCP Physician Assistant; Visit Provider Radiology Diagnostic Radiology | DX: Z12.31 Encounter for screening mammogram for malignant neoplasm of breast (principal) | CPT/HCPCS: 77063; 77067 ==

== ENCOUNTER 2024-02-03 12:49 | Outpatient (AMB) | payer MEDICARE, MEDICAID, SELFPAY ==
--- NOTE | 2024-02-03 12:55 | MHC.OFFVIS ---
Vital Signs 02/03/24 13:07 Height 4 ft 11 in Weight 112 lb BMI 22.6 Intake Visit Reasons: OV-Left hand injection- last inj 09/23/23 Intake Note: Luci 67 yr old female presents today for her Arthritis of carpometacarpal (CMC) joint of left thumb s/p injection from 09/23/23. States injection helped relief her pain and would like to repeat injection today. Allergies sacubitril [From Entresto] Adverse Reaction (Severe, Verified 02/03/24 13:07) hyperkalemia valsartan [From Entresto] Adverse Reaction (Severe, Verified 02/03/24 13:07) hyperkalemia HPI HPI OV-Left hand injection- last inj 09/23/23: Details: Luci is a 67 year old right hand dominant woman with known left basal joint OA. She presents today with increased pain and would like to discuss treatment options. She was last seen, and injected, on 09/24/2023. She states the last injection made her left hand sore for a week but has had relief up until recently. She reports the start of minor discomfort. She has a Hx of steroid injections: 07/07/22 by EDEL Kang, which she says gave her no relief. With me on 01/29/22 with good relief, and on 01/21/2023 with pain for 2 weeks and then no significant relief, and again on 09/24/2023 with good relief. She states she takes Oxycodone for her back pain. [facility] Medical History Heart failure with reduced ejection fraction Acute on chronic systolic (congestive) heart failure Lumbar spondylosis Ischemic cardiomyopathy COVID-19 vaccine series completed History of femoral angiogram Hiatal hernia CAD (coronary artery disease) AAA (abdominal aortic aneurysm) Hx of myocardial infarction Hypertension Peripheral vascular disease CKD (chronic kidney disease) stage 3, GFR 30-59 ml/min History of placement of internal cardiac defibrillator Cervical spondylosis Failed back syndrome, lumbar Surgical History Stented coronary artery Status post cardiac catheterization History of biliary duct stent placement 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 Sister Gynecologic cancer Social History Household Members: Family Household Members Other:: Son Housing: House Are you a primary director of health care marketing to a significant other at home: No Do you presently have visiting nurse or other home services: No Alcohol intake: never Patient Tobacco Use Status: Former Tobacco user Quit Date: 09/21/16 Tobacco use type: Cigarette Years Smoked: 40 e-Cigarette/Vaping Use: Never Used Second Hand Smoke Exposure: No Substance Use Type: Marijuana Advance Directives Date on File: 07/06/21 service: No Current occupational status: disabled Cognitive needs: No Hearing needs: No Vision needs: Yes (Glasses) Review of Systems Const All systems reviewed & are unremarkable except as noted in HPI and below Physical Exam Vital Signs: BMI result Body Mass Index 22.6 Const General: cooperative, healthy appearing and no acute distress Orientation/consciousness: patient oriented x3 HEENT Head: Yes normocephalic and Yes atraumatic Eyes EOM: EOMs intact bilaterally Resp Effort & Inspection: normal respiratory effort and able to speak in complete sentences Cardio Jugular venous distension: no JVD Skin General skin exam: turgor normal Rashes: no rashes Neuro General: patient oriented x3 Extrem Other: Evaluation of Left Upper Extremity: Patient was alert oriented and in no acute distress Neuro: Median, ulnar, radial nerves motor and sensory intact. Vascular: Cap refill brisk. She is most tender about the basal joint of the left thumb. Positive CMC grind Positive shoulder sign Not particularly tender over the 1st dorsal compartment or the MCP joint She can make a fist and extend all of her digits. She can oppose her thumb to all digits. Office Procedures Fracture Care Details: No fracture, injection Fracture Billing Code: Fracture Billing Code Assessment & Plan Assessment & Plan (1) Arthritis of carpometacarpal (CMC) joint of left thumb: Code(s): M18.12 - Unilateral primary osteoarthritis of first carpometacarpal joint, left hand Category: Medical (2) Ganglion cyst of dorsum of left wrist: Code(s): M67.432 - Ganglion, left wrist Category: Medical (3) Opioid contract exists: Code(s): Z79.891 - jail (current) use of opiate analgesic Category: Medical Plan Assessment & Plan: 1. Left Basal joint arthritis, S/P repeat injections Date of Injections: 09/23/2023, 01/21/23, 07/07/22, 01/29/22 I educated her about this condition I discussed treatment options, including the possibility of surgery in the future She says her most recent injection gave her no relief and caused her increased pain for ~2 weeks After discussing these options, the patient would like to proceed with a repeat injection today I discussed activity modification and told her to limit any heavy or repetitive gripping or pinching activities. Injection #1 : The risks and benefits of a steroid injection including but not limited to risk of damage to blood vessels, nerve, tendon, infection, skin bleaching, persistent or worsening pain, and failure to improve symptoms were discussed with the patient and they wish to proceed with the steroid injection. Once consent was obtained the skin over the dorsum of the Left basal joint was sterilely prepped. The joint was then injected with a combination of 1 mL of (40 mg/ml} Depo-Medrol and 1% plain Lidocaine. The patient appears to have tolerated the procedure well and with no complications. She had good early relief before leaving clinic today. She knows that they may not have another steroid injection into this joint for least 4 months. Please note that this patient has a significant cardiac condition, and evidently had a major heart attack following spine surgery. She has an implantable cardiac defibrillator in place, and is on Xarelto. She also has other medical conditions that make surgery less attractive. She says she was told that she should only have surgery if it is absolutely necessary. Recommended the use of Tylenol or Ibuprofen OTC to help with relief once the numbing medication wears off. Follow up will be in about 4 months for another injection. She will call the office if she is not needing the injection at that time. Patient Instructions: Scribed by Amirah Jones bacteriologist medical, for Dr. Gina Wallace on 02/03/2024 at 1:26 pm, EST. Coding Level of Care Code Est Pt Level 3 (92436) Diagnoses Arthritis of carpometacarpal (CMC) joint of left thumb M18.12 Ganglion cyst of dorsum of left wrist M67.432 Opioid contract exists Z79.891 CPT Codes Fracture Care - Fracture Billing Code: Fracture Billing Code ([id number])
[2024-02-03 13:07] VITALS: BMI 22.6
== END 2024-02-03 13:33 | disposition home or self-care (01) ==
PROVIDERS: PCP Physician Assistant; Visit Provider Orthopaedic Surgery
DX: M18.12 Unilateral primary osteoarthritis of first carpometacarpal joint, left hand (principal); M67.432 Ganglion, left wrist; Z79.891 Long term (current) use of opiate analgesic
CPT/HCPCS: 20600; 99213

== ENCOUNTER → 2024-02-03 12:49 | Outpatient (BNVA) | payer MEDICARE, MEDICAID, SELFPAY | PROVIDERS: PCP Physician Assistant; Visit Provider Orthopaedic Surgery | DX: M18.12 Unilateral primary osteoarthritis of first carpometacarpal joint, left hand (principal); M67.432 Ganglion, left wrist; Z79.891 Long term (current) use of opiate analgesic | CPT/HCPCS: 20600; 99212; J1010 ==

== ENCOUNTER 2024-02-22 12:59 | Outpatient (AMB) | payer MEDICARE, MEDICAID, SELFPAY ==
--- NOTE | 2024-02-22 13:00 | MHC.OFFVIS ---
Vital Signs 02/22/24 13:06 Height 4 ft 11 in Weight 109 lb 2 oz BMI 22.0 BP 157/69 H Blood Pressure Location Rt brachial Position Sitting Pulse 53 Pulse Source Pulse Oximeter Pulse Oximetry (%) 96 Oxygen Delivery Method Room Air Intake Visit Reasons: PILL COUNT Intake Note: Luci comes in today for a pill count to oxycodone, patient should have 44 tablets and presents with 47 tablets which she last took today 02/22/24 at 9am. 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 Patient is supposed to have #44 pills, in her possession has #47 pills. This demonstrates a responsible attitude in regards to the medication regimen. Patient reports mid to moderate analgesia, with no noted side effects. She continues to report left sided low back pain radiating into her left buttock and left thigh with walking, sitting or changing positioning. Previously, we discussed diagnostic SIJ injection for potential RFA procedure. Patient is not candidate for therapeutic injections due to osteoporosis or PNS trial due to cardiac defibrillator in place. She is scheduled to undergo Endovascular evaluation next month and would like to hold off interventional treatments at this time. Patient denies any fever, dizziness, chest pain, abdominal or groin pain, constipation, nausea, sedation, dizziness, or urinary retention. She reports current medication regime allows her to be less symptomatic and more functional. [facility] Medical History Heart failure with reduced ejection fraction Acute on chronic systolic (congestive) heart failure Lumbar spondylosis Ischemic cardiomyopathy COVID-19 vaccine series completed History of femoral angiogram Hiatal hernia CAD (coronary artery disease) AAA (abdominal aortic aneurysm) Hx of myocardial infarction Hypertension Peripheral vascular disease CKD (chronic kidney disease) stage 3, GFR 30-59 ml/min History of placement of internal cardiac defibrillator Cervical spondylosis Failed back syndrome, lumbar Surgical History Stented coronary artery Status post cardiac catheterization History of biliary duct stent placement 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 Sister Gynecologic cancer Social History Household Members: Family Household Members Other:: Son Housing: House Are you a primary home care associate to a significant other at home: No Do you presently have visiting nurse or other home services: No Alcohol intake: never Patient Tobacco Use Status: Former Tobacco user Tobacco use type: Cigarette Years Smoked: 40 e-Cigarette/Vaping Use: Never Used Second Hand Smoke Exposure: No Substance Use Type: Marijuana Advance Directives Date on File: 07/06/21 service: No Current occupational status: disabled Cognitive needs: No Hearing needs: No Vision needs: Yes (Glasses) Review of Systems Const All systems reviewed & are unremarkable except as noted in HPI and below Physical Exam Vital Signs: Last Vital Signs Pulse 53 02/22/24 13:06 BP 157/69 H 02/22/24 13:06 Pulse Ox 96 02/22/24 13:06 Oxygen Delivery Method Room Air 02/22/24 13:06 BMI result Body Mass Index 22.0 On exam today: Appears afebrile. Alert and oriented. Mood and affect appropriate. Follows and participates in conversation appropriately. Respiratory effort is unlabored. No cough. Able to transition from sit to stand unassisted. Back/Spine/Pelvis Cervical Spine: loss of normal cervical lordosis, cervical muscular tenderness and No Cervical spine tenderness Thoracic/Lumbar Spine: thoracic and lumbar spine normal to inspection, Thoracic/lumbar spine scar(s), Lasegue's sign negative, straight leg raise negative bilaterally, pain with thoraco-lumbar ROM, thoraco-lumbar ROM limited, No thoracic spinal tenderness and lumbar spinal tenderness at L4 and at L5 Pelvis: buttock tenderness Sacroiliac joints: on the right nontender and on the left (+Jimbo's, +Stinchfield) tender to palpation Psych Appearance: grossly normal Mental Status: mental status grossly normal Speech and movement: Normal speech and movement present Affect: normal affect Attitude: cooperative Thought process: Normal thought process present Thought content: Normal thought content present, suicidality (none), no hallucinations and No Depressive thoughts present Insight: Good insight present (Psych) Judgement: Good judgement present (Psych) Assessment & Plan Assessment & Plan (1) Failed back syndrome, lumbar: Code(s): M96.1 - Postlaminectomy syndrome, not elsewhere classified Category: Medical (2) Sacroiliac joint pain: Code(s): M53.3 - Sacrococcygeal disorders, not elsewhere classified Category: Medical (3) Lumbar spondylosis: Code(s): M47.816 - Spondylosis without myelopathy or radiculopathy, lumbar region Category: Medical (4) Opioid contract exists: Code(s): Z79.891 - intermediate (current) use of opiate analgesic Category: Medical Plan Patient has shown accountability for her medication regimen and the pill counts were accurate. There is no evidence of misuse, abuse or diversion at this time. [employer] reviewed. Script sent for oxycodone 5 mg QID prn with advanced date of 03/05/24. Narcan order renewed. All questions were answered and the patient is in agreement with the plan. Follow up in 4 weeks for a pill count or sooner if needed. Medications: New naloxone 4 mg/actuation (Narcan) spray 1 dose into ONE nostril; alternate nostrils w each dose until help arrives 4 mg intranasal Q2M PRN 2 ea 0RF opioid overdose Z79.891 - watermelon inspector (current) use of opiate analgesic Refilled oxycodone Partial Fill upon patient request. 5 mg PO QID 30 days PRN 120 tabs 0RF pain (scale score 7-10) M47.816 - Spondylosis without myelopathy or radiculopathy, lumbar region, M96.1 - Postlaminectomy syndrome, not elsewhere classified, Z79.891 - intermediate (current) use of opiate analgesic Coding Level of Care Code Est Pt Level 4 (94768) Diagnoses Failed back syndrome, lumbar M96.1 Sacroiliac joint pain M53.3 Lumbar spondylosis M47.816 Opioid contract exists Z79.891
[2024-02-22 13:06] VITALS: BP 157/69; PULSE 53; O2SAT 96; BMI 22.0
== END 2024-02-22 13:22 | disposition home or self-care (01) ==
PROVIDERS: PCP Physician Assistant; Visit Provider Nurse Practitioner Family
DX: M96.1 Postlaminectomy syndrome, not elsewhere classified (principal); M53.3 Sacrococcygeal disorders, not elsewhere classified; M47.816 Spondylosis without myelopathy or radiculopathy, lumbar region; Z79.891 Long term (current) use of opiate analgesic
CPT/HCPCS: 99214

== ENCOUNTER → 2024-02-22 12:59 | Outpatient (BNVA) | payer MEDICARE, MEDICAID, SELFPAY | PROVIDERS: PCP Physician Assistant; Visit Provider Nurse Practitioner Family | DX: M47.816 Spondylosis without myelopathy or radiculopathy, lumbar region (principal); M53.3 Sacrococcygeal disorders, not elsewhere classified; M96.1 Postlaminectomy syndrome, not elsewhere classified; Z79.891 Long term (current) use of opiate analgesic; Z51.81 Encounter for therapeutic drug level monitoring | CPT/HCPCS: 99212 ==

== ENCOUNTER 2024-02-25 14:56 | Outpatient (AMB) | payer MEDICARE, MEDICAID, SELFPAY ==
[2024-02-25 15:19] VITALS: BP 138/60; PULSE 56; O2SAT 95; BMI 22.0
--- NOTE | 2024-02-25 15:19 | A.OFFPC_ITS ---
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: No Accompanied by: Self / Same As Patient Allergies sacubitril [From Entresto] Adverse Reaction (Severe, Verified 02/25/24 15:41) hyperkalemia valsartan [From Entresto] Adverse Reaction (Severe, Verified 02/25/24 15:41) hyperkalemia Medication List - Last Reconciled 02/25/24 by Iron Jin PA-C alendronate 70 mg PO QWEEK aspirin (Adult Low Dose Aspirin) 81 mg PO DAILY atorvastatin 80 mg PO DAILY blood pressure monitor As directed calcium carbonate (Oyster Shell Calcium) 500 mg PO DAILY 90 days diphenoxylate-atropine 2.5-0.025 mg 1 tab PO BID PRN ezetimibe 10 mg PO DAILY furosemide 20 mg PO DAILY hydroxyzine HCl 20 mg (2 x 10 mg) PO BEDTIME 30 days metoprolol succinate ER 50 mg PO DAILY naloxone 4 mg/actuation (Narcan) 4 mg intranasal Q2M PRN oxycodone 5 mg PO QID PRN 30 days rivaroxaban (Xarelto) 2.5 mg PO BID Tobacco use date assessed: 02/25/24 Fall risk assessment: No Falls in past year Dental Screening Dental Screen Date: 02/25/24 Did you have a dental visit in the last 12 months?: No Did you have a dental problem in the last 6 months where you did not have access to dental care?: No Was dental information given to patient?: No (dentures) HPI PE HPI Details Patient is a 68-year-old female here today for a PE. ? Patient has a past medical history significant for coronary artery disease, failed back syndrome, lumbar spondylosis, depression home a peripheral artery disease, carotid stenosis, hypertension. Concerns--> patient reports having acute on chronic lower lumbar spine pain that is radiating down her left lower extremity. She denies any falls or recent trauma to her lower back. Of note has had surgery on her back nearly 7 years ago and continues in chronic pain. Continues to see the pain management clinic to which she is on narcotics for her pain. Coronary artery disease :? Has stent placed and since has had more energy and less chest discomforts. ? Continues to follow a chief of internal medicine here in [place].? She has been transition to anticoagulation therapy.? She denies any overt signs of bleeding. Advised to get fasting lipids done to evaluate her LDL .. ..Failed back syndrome:? .? Continues on chronic narcotic medication [facility] Has been responsible with pill counts and urine drug screens. Recent x-rays of her lumbar spine and pelvis showing no hardware failure, SI joint normal.? She reports she continues to have pain over her left lateral hip in lower buttock area. Unable to take NSAID due to being on anticoagulation. Colorectal cancer screening: Has cologaurd at home , has not done - declines Mammogram: last done in 01/2024 BIRADS1 Vaccines: Up-to-date with COVID vaccine, up-to-date with pneumonia vaccine, up-to-date with shingles and tetanus vaccines [facility] Medical History (Updated 02/29/24 @ 07:33 by Iron Jin PA-C) Renal artery stenosis Heart failure with reduced ejection fraction Acute on chronic systolic (congestive) heart failure Lumbar spondylosis Ischemic cardiomyopathy COVID-19 vaccine series completed History of femoral angiogram Hiatal hernia CAD (coronary artery disease) AAA (abdominal aortic aneurysm) Hx of myocardial infarction Hypertension Peripheral vascular disease CKD (chronic kidney disease) stage 3, GFR 30-59 ml/min History of placement of internal cardiac defibrillator Cervical spondylosis Failed back syndrome, lumbar Surgical History Stented coronary artery Status post cardiac catheterization History of biliary duct stent placement 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 Sister Gynecologic cancer Social History (Updated 02/25/24 @ 15:41 by Iron Jin PA-C) Household Members: Family Household Members Other:: Son Housing: House Are you a primary pediatric care coordinator to a significant other at home: No Do you presently have visiting nurse or other home services: No Alcohol intake: never Patient Tobacco Use Status: Former Tobacco user Tobacco use type: Cigarette Years Smoked: 40 e-Cigarette/Vaping Use: Never Used Second Hand Smoke Exposure: No Substance Use Type: Marijuana Advance Directives Date on File: 07/06/21 service: No Current occupational status: disabled Cognitive needs: No Hearing needs: No Vision needs: Yes (Glasses) Questionnaire PHQ-9 Over the last 2 weeks, how often have you been bothered by any of the following problems? 1. Little interest or pleasure in doing things: not at all 2. Feeling down, depressed, or hopeless: not at all 3. Trouble falling or staying asleep, or sleeping too much: not at all 4. Feeling tired or having little energy: not at all 5. Poor appetite or overeating: not at all 6. Feeling bad about yourself - or that you are a failure or have let yourself or your family down: not at all 7. Trouble concentrating on things, such as reading the newspaper or watching television: not at all 8. Moving or speaking so slowly that other people could have noticed. Or the opposite - being so fidgety or restless that you have been moving around a lot more than usual: not at all 9. Thoughts that you would be better off or of hurting yourself in some way: not at all Total score: 0 Depression Screening Interpretation: Negative Depression Screening Done: Yes 93327 - PHQ-9 Billing: Yes Source: Developed by Drs. Unruly Jones, Yanna Perez, Mckay Doty and colleagues, with an educational dave from [email or web address]. Thrive Questionnaire Date Thrive assessed: 02/25/24 I am a: Patient What is your living situation today?: I have a steady place to live Within the past 12 months, did the food you bought not last and you didn't have the money to get more?: Never true Within the past 12 months, did you worry whether your food would run out before you got money to buy more?: Never true Do you have trouble paying for medicines?: No Do you have trouble getting transportation to medical appointments?: No Do you have trouble paying your heating and electricity bill?: No Do you have trouble taking care of your child, family member or friend?: No Do you have trouble with day-to-day activities such as bathing, preparing meals, shopping, managing finances, etc.?: No Are you currently unemployed and looking for a job?: No Are you interested in more education?: No Currently or been in a relationship where the following occur: no concerns reported THRIVE Score: 0 AUDIT C Alcohol Use Questionnaire (AUDIT-C) 1. How often do you have a drink containing alcohol?: Never 3. How often do you have six or more drinks on one occasion?: Never Total Score: 0 ALLA-7 AMB Questionnaire ALLA-7 Date ALLA - 7 assessed: 02/25/24 Feeling nervous, anxious, or on edge: 0 = Not at all Not being able to stop or control worryin = Not at all Worrying too much about different things: 0 = Not at all Trouble relaxin = Not at all Being so restless that it is hard to sit still: 0 = Not at all Becoming easily annoyed or irritable: 0 = Not at all Feeling afraid as if something awful might happen: 0 = Not at all Total ALLA-7 score (0-4 normal; 5-9 mild; 10-14 moderate; 15-21 severe): 0 Source: Developed by Drs. Unruly Jones, Yanna Perez, Mckay kaplan nd colleagues, with an educational dave from [email or web address]. ALLA-7 Assessment Billing ALLA-7 Assessment Tool: ALLA-7 Assessment 48213 Review of Systems Const Denies body aches, Denies chills, Denies excessive sweating, Denies fatigue, Denies fever(s) and Denies headache(s) Eyes Denies blurry vision ENT Denies dysphagia, Denies vertigo, Denies dizziness, Denies headache(s), Denies hearing loss and Denies tinnitus Card Denies chest pain, Denies chest pain with activity, Denies syncope, Denies irregular heart rhythm and Denies dyspnea Resp Denies chest congestion, Denies cough, Denies hemoptysis, Denies dyspnea and Denies wheezing GI Denies abdominal pain, Denies melena, Denies hematochezia, Denies coffee ground emesis, Denies dysphagia, Denies diarrhea, Denies nausea and Denies vomiting Denies urinary frequency, Denies dysuria, Denies urinary hesitancy and Denies urinary urgency Musc Reports back pain, Denies arthralgias, Denies limited range of motion, Denies muscle cramps and Denies muscle weakness Skin/Breast Denies rash and Denies skin ulcer Neuro Denies Abnormal speech present, Denies confusion, Denies vertigo, Denies dizziness, Denies syncope, Denies headache(s), Denies memory loss and Denies seizure-like activity Psych Denies anxiety, Denies confusion, Denies depression, Denies memory loss, Denies panic attacks and Denies paranoia Endo Denies excessive sweating, Denies fatigue, Denies flushing, Denies polydipsia and Denies polyuria Aller/Immun Denies wheezing Physical exam (Primary Care) Vital Signs: Last Vital Signs Pulse 56 02/25/24 15:19 BP 138/60 02/25/24 15:19 Pulse Ox 95 02/25/24 15:19 Oxygen Delivery Method Room Air 02/25/24 15:19 BMI result Body Mass Index 22.0 Tobacco/Smoking Status: Tobacco use Status Tobacco use date assessed 02/25/24 02/25/24 15:27 Patient Tobacco Use Status Former Tobacco user 02/25/24 15:41 Tobacco use type Cigarette 02/25/24 15:41 e-Cigarette/Vaping Use Never Used 02/25/24 15:41 PHQ-9: PHQ-9 Score PHQ-9: Total score 0 02/25/24 15:36 Depression Screening Interpretation: Negative Thrive Assessment: Date of Thrive Assessment Date Thrive assessed 02/25/24 02/25/24 15:27 Currently or been in a relationship where the following occur: no concerns reported Const General: cooperative, comfortable, no acute distress, alert and awake; No confusion Orientation/consciousness: oriented to person, oriented to place, patient oriented x3 and No confusion HENMT Head: Yes normocephalic Ears: external ears normal and TM's normal bilaterally Face and sinus: No sinus tenderness Mouth: Normal oral and palatal mucosa present and tongue normal Teeth and gingiva: dentition normal and gingiva normal Throat: Yes posterior oropharynx normal, Yes tonsils normal and Yes uvula midline Eyes Conjunctivae: conjunctivae normal Sclerae: sclerae normal Pupils: Equal, round and reactive pupils present EOM: EOMs intact bilaterally Direct Ophthalmoscopy: No no photophobia Neck Neck: Yes no lymphadenopathy, No tender and Yes no JVD Thyroid: Thyroid normal Carotids: no bruits Chest Chest palpation & inspection: no tenderness Resp Effort & Inspection: normal respiratory effort, no audible wheezes, not labored and no stridor Auscultation: no crackles, no rales, no rhonchi and no wheezes Cardio Jugular venous distension: no JVD Rate: regular rate, not bradycardic and not tachycardic Rhythm: regular rhythm Bruits: no carotid bruits Peripheral pulses: Peripheral pulses 2+ throughout GI Inspection: Yes normal to inspection, No abdominal wall ecchymosis and No vis ible herniation Palpation (GI): Soft to palpation, nontender, no guarding, not rigid and No hepatosplenomegaly present Auscultation: normoactive bowel sounds General: Yes no CVA tenderness Back/Spine/Pelvis Back: no CVA tenderness and No back tenderness Cervical Spine: cervical ROM normal Thoracic/Lumbar Spine: thoracic and lumbar spine normal to inspection, straight leg raise negative bilaterally, No thoraco-lumbar ROM limited and No lumbar spinal tenderness Skin Lesions: no lesions Rashes: no rashes Wounds: no wounds Neuro General: oriented to person, oriented to place, patient oriented x3, CN's II-XI intact bilaterally and No confusion Cranial nerves: Yes Equal, round and reactive pupils present and Yes Normal accommodation reflex present Cognition (Neuro): normal cognition Speech: No Abnormal speech present Gait exam (Neuro): Normal gait present Motor exam (neuro): 5/5 motor strength present throughout Extrem Right upper extremity: full ROM; no cyanosis Left upper extremity: full ROM; no cyanosis Right lower extremity: no edema Left lower extremity: no edema Psych Appearance: grossly normal Mental Status: mental status grossly normal Affect: normal affect Attitude: cooperative Thought process: Normal thought process present Assessment and Plan Assessment & Plan (1) Annual physical exam: Code(s): Z00.00 - Encounter for general adult medical examination without abnormal findings (2) CAD (coronary artery disease): Code(s): I25.10 - Atherosclerotic heart disease of [place] coronary artery without angina pectoris Qualifiers: Associated angina: without angina Coronary Disease-Associated Artery/Lesion type: [place] artery [place] vs. transplanted heart: [place] heart Qualified Code(s): I25.10 - Atherosclerotic heart disease of [place] coronary art brendan without angina pectoris Plan: Continues to follow cardiology. Most recent lipid panel showing excellent control over total cholesterol and LDL. SHe denies any chest discomfort, dizziness. (3) Impaired glucose metabolism: Code(s): R73.09 - Other abnormal glucose Plan: Noted elevated fasting blood sugar. She has been reporting polyuria and polydipsia. Will check an A1c to evaluate for diabetes. (4) Sacroiliac joint pain: Code(s): M53.3 - Sacrococcygeal disorders, not elsewhere classified (5) Heart failure with reduced ejection fraction: Code(s): I50.20 - Unspecified systolic (congestive) heart failure Plan: Patient continues to be euvolemic on physical exam today. Has not had any Congestive heart failure exacerbations quite awhile. (6) MDD (major depressive disorder), recurrent episode, moderate: Code(s): F33.1 - Major depressive disorder, recurrent, moderate Plan: Patient's PHQ-9 score showing negative for depression. (7) Lumbar radicular syndrome: Code(s): M54.16 - Radiculopathy, lumbar region Plan: As per HPI patient has acute on chronic lower lumbar spine pain. She reports radicular symptoms of pain and numbness in her left lower extremity. Concerns here for worsening disc herniation. Will try for MRI of lumbar spine. She continues on narcotic pain medication. Will add on muscle relaxer S additional medication for pain.. She will reach out to her pain management specialty (8) Osteoporosis: Code(s): M81.0 - Age-related osteoporosis without current pathological fracture Qualifiers: Osteoporosis type: age-related Presence of current pathological fracture: unspecified Qualified Code(s): M81.0 - Age-related osteoporosis with out current pathological fracture Plan: Bone density screening who in 2020 showing osteoporosis. Has been on alendronate ever since. Will recheck bone density screening to evaluate any improvement in T-score. (9) PAD (peripheral artery disease): Comment: 04/10/2021 - diagnostic angiogram 06/17/2021 - left femoral endarterectomy with attempted iliac stent 12/18/2021-attempted aortogram with left lower extremity runoff and right common iliac plasty Code(s): I73.9 - Peripheral vascular disease, unspecified Plan: Continues to follow vascular surgeon. Has had multiple vascular surgeries in the past. She continues on both aspirin and anticoagulation. Orders: Orders XR DEXA axial skeleton 02/25/24 M81.0 - Age-related osteoporosis without current pathological fracture, Z78.0 - Asymptomatic menopausal state MR lumbar spine wo/w con 02/25/24 M54.16 - Radiculopathy, lumbar region XR lumbar spine 2-3V 02/25/24 M54.16 - Radiculopathy, lumbar region Medications: New baclofen 10 mg PO DAILY 14 tabs 0RF 14 days M96.1 - Postlaminectomy syndrome, not elsewhere classified Patient Instructions: Goal: Blood pressure to remain below 140/90, LDL to optimally be below 70 Barriers: Adherence to physical activity and healthy eating habits Coding Level of Care Code Est Pt Prev Care >65y(89823) Diagnoses Annual physical exam Z00.00 Coronary artery disease involving [place] coronary artery of [place] heart without angina pectoris I25.10 Associated angina: without angina Coronary Disease-Associated Artery/Lesion type: [place] artery [place] vs. transplanted heart: [place] heart Impaired glucose metabolism R73.09 Sacroiliac joint pain M53.3 Heart failure with reduced ejection fraction I50.20 MDD (major depressive disorder), recurrent episode, moderate F33.1 Lumbar radicular syndrome M54.16 Age related osteoporosis, unspecified pathological fracture presence M81.0 Osteoporosis type: age-related Presence of current pathological fracture: unspecified PAD (peripheral artery disease) I73.9 Additional Codes ALLA-7 Assessment Billing - ALLA-7 Assessment Tool: ALLA-7 Assessment [id number] ([id number])
== END 2024-02-25 16:03 | disposition home or self-care (01) ==
PROVIDERS: PCP Physician Assistant; Visit Provider Physician Assistant
DX: Z00.00 Encounter for general adult medical examination without abnormal findings (principal); I50.20 Unspecified systolic (congestive) heart failure; F33.1 Major depressive disorder, recurrent, moderate; I73.9 Peripheral vascular disease, unspecified; I25.10 Atherosclerotic heart disease of native coronary artery without angina pectoris; R73.09 Other abnormal glucose; M53.3 Sacrococcygeal disorders, not elsewhere classified; M54.16 Radiculopathy, lumbar region; M81.0 Age-related osteoporosis without current pathological fracture
CPT/HCPCS: 99397

== ENCOUNTER 2024-03-21 13:19 | Outpatient (AMB) | payer MEDICARE, MEDICAID, SELFPAY ==
--- NOTE | 2024-03-21 13:24 | A.OFFVIS_ITS ---
Vital Signs 03/21/24 13:36 Height 4 ft 11 in Weight 109 lb 6 oz BMI 22.1 BP 143/65 H Blood Pressure Location Rt brachial Position Sitting Pulse 71 Pulse Source Pulse Oximeter Pulse Oximetry (%) 96 Oxygen Delivery Method Room Air Intake Visit Reasons: PILL COUNT Intake Note: Luci comes in today for a pill count to oxycodone, patient should have 52 tablets and presents with 55 tablets which she last took today 03/21/24 at 12:30pm. 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 Patient is supposed to have #52 pills, in her possession has #55 pills. This demonstrates a responsible attitude in regards to the medication regimen. Patient reports mid to moderate analgesia, with no noted side effects. She continues to report left sided low back pain radiating into her left buttock and left thigh with walking, sitting or changing positioning. Patient reports pain is now extending below left knee level, laterally and posteriorly with associated numbness and tingling. She saw her PCP last month who ordered MRI of lumbar spine scheduled for 03/29/24. She also has repeat Bone scan with h/o femur osteoporosis. Patient denies any fever, dizziness, chest pain, abdominal or groin pain, constipation, nausea, sedation, dizziness, or urinary retention. She reports current medication regime allows her to be less symptomatic and more functional. [facility] [place] Medical History Renal artery stenosis Heart failure with reduced ejection fraction Acute on chronic systolic (congestive) heart failure Lumbar spondylosis Ischemic cardiomyopathy COVID-19 vaccine series completed History of femoral angiogram Hiatal hernia CAD (coronary artery disease) AAA (abdominal aortic aneurysm) Hx of myocardial infarction Hypertension Peripheral vascular disease CKD (chronic kidney disease) stage 3, GFR 30-59 ml/min History of placement of internal cardiac defibrillator Cervical spondylosis Failed back syndrome, lumbar Surgical History Stented coronary artery Status post cardiac catheterization History of biliary duct stent placement 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 Sister Gynecologic cancer Social History Household Members: Family Household Members Other:: Son Housing: House Are you a primary multi care technician to a significant other at home: No Do you presently have visiting nurse or other home services: No Alcohol intake: never Patient Tobacco Use Status: Former Tobacco user Tobacco use type: Cigarette Years Smoked: 40 e-Cigarette/Vaping Use: Never Used Second Hand Smoke Exposure: No Substance Use Type: Marijuana Advance Directives Date on File: 07/06/21 service: No Current occupational status: disabled Cognitive needs: No Hearing needs: No Vision needs: Yes (Glasses) Review of Systems Const All systems reviewed & are unremarkable except as noted in HPI and below Physical Exam Vital Signs: Last Vital Signs Pulse 71 03/21/24 13:36 BP 143/65 H 03/21/24 13:36 Pulse Ox 96 03/21/24 13:36 Oxygen Delivery Method Room Air 03/21/24 13:36 BMI result Body Mass Index 22.1 On exam today: Appears afebrile. Alert and oriented. Mood and affect appropriate. Follows and participates in conversation appropriately. Respiratory effort is unlabored. No cough. Able to transition from sit to stand unassisted, reports imbalance on LLE due to pain. Back/Spine/Pelvis Cervical Spine: loss of normal cervical lordosis, cervical muscular tenderness and No Cervical spine tenderness Thoracic/Lumbar Spine: thoracic and lumbar spine normal to inspection, Thoracic/lumbar spine scar(s), Lasegue's sign positive on the left and diffuse, pain with thoraco-lumbar ROM, paraspinal muscle tenderness, thoraco-lumbar ROM limited, No thoracic spinal tenderness, lumbar spinal tenderness at L4 and at L5 and straight leg raise positive left at 40 degrees Pelvis: buttock tenderness Sacroiliac joints: on the right nontender and on the left (+Jimbo's, +Sti nchfield) tender to palpation Psych Appearance: grossly normal Mental Status: mental status grossly normal Speech and movement: Normal speech and movement present Affect: normal affect Attitude: cooperative Thought process: Normal thought process present Thought content: Normal thought content present, suicidality (none), no hallucinations and No Depressive thoughts present Insight: Good insight present (Psych) Judgement: Good judgement present (Psych) Results Reviewed Results Reviewed: XR LUMBOSACRAL SPINE WITH OBLIQUES 04/27/23 CLINICAL INFORMATION: Postlaminectomy syndrome. COMPARISON: Radiographs dated 05/10/2019. TECHNIQUE: AP, both oblique, and lateral (neutral, flexion and extension) views of the lumbar spine. Lateral view of the lumbosacral junction. FINDINGS: There is bony demineralization. At L3-L4, there is a 4 mm anterolisthesis. There is well-maintained alignment status-post L4-L5 posterior fusion and discectomy, with intact posterior fixator rods, pedicular screws and disc spacer. No hardware failure or loosening is seen. There is no acute fracture or spondylolisthesis. No instability is seen with flexion or extension. No spondylolysis defect is seen on the oblique views. There are aortoiliac atherosclerotic calcifications. Iliac stent material is noted. IMPRESSION: 1. There is well-maintained alignment status-post L4-L5 posterior fusion and discectomies. No hardware failure or loosening is seen. 2. There is mild degenerative disc disease at L3-L4. 3. No instability is seen with flexion or extension. XR SACROILIAC JOINTS 04/27/23 CLINICAL INFORMATION: Sacrococcygeal disorders. COMPARISON: Hip radiographs dated 06/19/2021 and 11/06/2017. FINDINGS: Bones and soft tissues are normal. No fracture. Alignment is anatomic. Sacroiliac joint spaces are well-maintained without erosions or surrounding sclerosis. The acetabular joint spaces are well-maintained. The pubic symphysis is intact. Lumbar orthopedic hardware and right iliac stent material are noted. IMPRESSION: Normal sacroiliac joints. BONE DENSITOMETRY 03/05/21 Osteoporosis based on the lowest T-score value of -2.7 in the total femur applying World Health Organization criteria. Assessment & Plan Assessment & Plan (1) Failed back syndrome, lumbar: Code(s): M96.1 - Postlaminectomy syndrome, not elsewhere classified Category: Medical (2) Sacroiliac joint pain: Code(s): M53.3 - Sacrococcygeal disorders, not elsewhere classified Category: Medical (3) Lumbar spondylosis: Code(s): M47.816 - Spondylosis without myelopathy or radiculopathy, lumbar region Category: Medical (4) Opioid contract exists: Code(s): Z79.891 - care home (current) use of opiate analgesic Category: Medical (5) Muscle spasm: Code(s): M62.838 - Other muscle spasm Category: Medical (6) Lumbar radicular syndrome: Code(s): M54.16 - Radiculopathy, lumbar region Category: Medical Plan Patient has shown accountability for her medication regimen and the pill counts were accurate. There is no evidence of misuse, abuse or diversion at this time. [facility] reviewed. Script sent for oxycodone 5 mg QID prn with advanced date of 04/03/24. Patient has Narcan at home. Refill sent for baclofen-reports good tolerance without side effects. Pending repeat Bone scan and lumbar spine MRI. Patient will return to the clinic to discuss results of the MRI findings when it is done and consider interventional therapy vs Neurosurgical evaluation as indicated. All questions were answered and the patient is in agreement with the plan. Follow up in 4 weeks for a pill count or sooner if needed. Medications: Changed From baclofen 10 mg PO DAILY 14 days 14 tabs 0RF M54.16 - Radiculopathy, lumbar region, M62.838 - Other muscle spasm, M96.1 - Postlaminectomy syndrome, not elsewhere classified To baclofen 10 mg PO BID PRN 45 tabs 0RF muscle spasm M54.16 - Radiculopathy, lumbar region, M62.838 - Other muscle spasm, M96.1 - Postlaminectomy syndrome, not elsewhere classified Refilled oxycodone Partial Fill upon patient request. 5 mg PO QID 30 days PRN 120 tabs 0RF pain (scale score 7-10) M47.816 - Spondylosis without myelopathy or radiculopathy, lumbar region, M96.1 - Postlaminectomy syndrome, not elsewhere classified, Z79.891 - care home (current) use of opiate analgesic Coding Level of Care Code Est Pt Level 4 (00939) Diagnoses Failed back syndrome, lumbar M96.1 Sacroiliac joint pain M53.3 Lumbar spondylosis M47.816 Opioid contract exists Z79.891 Muscle spasm M62.838 Lumbar radicular syndrome M54.16
[2024-03-21 13:36] VITALS: BP 143/65; PULSE 71; O2SAT 96; BMI 22.1
== END 2024-03-21 13:47 | disposition home or self-care (01) ==
PROVIDERS: PCP Physician Assistant; Visit Provider Nurse Practitioner Family
DX: M96.1 Postlaminectomy syndrome, not elsewhere classified (principal); M53.3 Sacrococcygeal disorders, not elsewhere classified; M47.816 Spondylosis without myelopathy or radiculopathy, lumbar region; Z79.891 Long term (current) use of opiate analgesic; M62.838 Other muscle spasm; M54.16 Radiculopathy, lumbar region
CPT/HCPCS: 99214

== ENCOUNTER → 2024-03-21 13:19 | Outpatient (BNVA) | payer MEDICARE, MEDICAID, SELFPAY | PROVIDERS: PCP Physician Assistant; Visit Provider Nurse Practitioner Family | DX: M96.1 Postlaminectomy syndrome, not elsewhere classified (principal); M53.3 Sacrococcygeal disorders, not elsewhere classified; M47.816 Spondylosis without myelopathy or radiculopathy, lumbar region; M62.838 Other muscle spasm; M54.16 Radiculopathy, lumbar region; Z51.81 Encounter for therapeutic drug level monitoring; Z79.891 Long term (current) use of opiate analgesic | CPT/HCPCS: 99212 ==

== ENCOUNTER 2024-03-22 12:45 | Outpatient (REF) | payer MEDICARE, MEDICAID, SELFPAY ==
--- NOTE | ~2024-03-22 | MM_ITS ---
EXAMINATION: BONE DENSITOMETRY CLINICAL INDICATION: Asymptomatic menopausal state. COMPARISON: Previous BD dated 03/05/2021 and baseline BD dated 12/03/2018. TECHNIQUE: Using a [employer] DXA System (software version: 13.1) manufactured by [employer], dual-energy x-ray absorptiometry was performed of the lumbar spine and left hip. The images are of good technical quality. Summary results are attached. FINDINGS: LEFT FEMUR, NECK: Current: BMD 0.757 g/cm2, Z-score 0.0, T-score -2.0, osteopenia. Prior: BMD 0.711 g/cm2. Baseline: BMD 0.652 g/cm2. LEFT FEMUR, TOTAL: Current: BMD 0.716 g/cm2, Z-score -0.5, T-score -2.3, osteopenia, 7.0% increase from previous, 14.9% increase from baseline (<5% change is not significant). Prior: BMD 0.669 g/cm2. Baseline: BMD 0.623 g/cm2. AP SPINE L1-L3 (excluding L4): The data of L1-L4 has been changed to exclude the L4 vertebral body, because metallic artifact at this level may cause overestimation of lumbar spine density. Current: BMD 1.058 g/cm2, Z-score 1.2, T-score -0.9, normal, 8.5% increase from previous, 11.7% increase from baseline (<5% change is not significant). Prior: BMD 0.975 g/cm2. Baseline: BMD 0.947 g/cm2. IDENTIFIED RISK FACTORS: Early menopause, secondary osteoporosis, history of fracture (adult), osteoporosis, kidney disease. HISTORY OF FRACTURE: Humerus/shoulder. MEDICATIONS: Calcium. MM/XR DEXA axial skeleton IMPRESSION: 1. DIAGNOSIS: Osteopenia based on the lowest T-score value of -2.3 in the total femur applying World Health Organization criteria. 2. 10-YEAR FRACTURE RISK PREDICTION, FRAX: Major osteoporotic fracture (clinical spine, forearm, hip or shoulder) 17.6%. Hip fracture 3.4%. 3. Treatment Recommendations: NOF guidelines recommend consideration for treatment in postmenopausal women and men age 50 and older presenting with the following: -A hip or vertebral (clinical or morphometric) fracture. -T-score less than or equal to -2.5 at the femoral neck or spine after appropriate evaluation to exclude secondary causes. -Low bone mass at the hip or spine and a 10-year fracture probability by FRAX of greater than or equal to 3% for hip fracture or greater than or equal to 20% for major osteoporotic fracture based on the [place] adapted WHO algorithm. 4. Other Recommendations: All treatment decisions require clinical judgment and consideration of individual patient factors, including patient preferences, comorbidities, previous drug use, risk factors not captured in the FRAX model (e.g. frailty, falls, vitamin D deficiency, increased bone turnover, interval significant decline in bone density) and possible under or overestimation of fracture risk by FRAX. Additional medical evaluation for secondary cause of low bone mineral density may be appropriate. FUTURE SCAN RECOMMENDATION: People with diagnosed cases of osteoporosis or at high risk for fracture should have regular bone mineral density tests. For patients eligible for Medicare, routine testing is allowed once every 2 years. The testing frequency can be increased to one year for patients who have rapidly progressing disease, those who are receiving or discontinuing medical therapy to restore bone mass, or have additional risk factors.
== END 2024-03-22 12:46 | disposition home or self-care (01) ==
LOC: HO.MAMMO 12:45
PROVIDERS: PCP Physician Assistant; Visit Provider Physician Assistant
DX: M81.0 Age-related osteoporosis without current pathological fracture (principal); Z78.0 Asymptomatic menopausal state
CPT/HCPCS: 77080

== ENCOUNTER → 2024-03-23 23:59 | Outpatient (BNV) | payer MEDICARE, MEDICAID, SELFPAY ==
--- NOTE | 2024-03-28 14:25 | A.OFFVIS_ITS ---
Intake Visit Reasons: Remote device check- [facility] Allergies sacubitril [From Entresto] Adverse Reaction (Severe, Verified 03/21/24 13:36) hyperkalemia valsartan [From Entresto] Adverse Reaction (Severe, Verified 03/21/24 13:36) hyperkalemia PENDING SALE TO [facility] Medical History Renal artery stenosis Heart failure with reduced ejection fraction Acute on chronic systolic (congestive) heart failure Lumbar spondylosis Ischemic cardiomyopathy COVID-19 vaccine series completed History of femoral angiogram Hiatal hernia CAD (coronary artery disease) AAA (abdominal aortic aneurysm) Hx of myocardial infarction Hypertension Peripheral vascular disease CKD (chronic kidney disease) stage 3, GFR 30-59 ml/min History of placement of internal cardiac defibrillator Cervical spondylosis Failed back syndrome, lumbar Surgical History Stented coronary artery Status post cardiac catheterization History of biliary duct stent placement 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 Sister Gynecologic cancer Social History Household Members: Family Household Members Other:: Son Housing: House Are you a primary urgent care technician to a significant other at home: No Do you presently have visiting nurse or other home services: No Alcohol intake: never Patient Tobacco Use Status: Former Tobacco user Tobacco use type: Cigarette Years Smoked: 40 e-Cigarette/Vaping Use: Never Used Second Hand Smoke Exposure: No Substance Use Type: Marijuana Advance Directives Date on File: 07/06/21 service: No Current occupational status: disabled Cognitive needs: No Hearing needs: No Vision needs: Yes (Glasses) Office Procedures Cardiac Device Check Cardiac Device Check Details: Remote ICD report generated 03/23/2024. ICD function is adequate [id number] Cardiac Interrogation, implant defibrillator w/interim Procedure code (CPT) selection complete Assessment & Plan Assessment & Plan (1) ICD (implantable cardioverter-defibrillator) in place: Code(s): Z95.810 - Presence of automatic (implantable) cardiac defibrillator Category: Medical Plan: See above Coding Level of Care Code Procedure Only Diagnoses ICD (implantable cardioverter-defibrillator) in place Z95.810 CPT Codes Cardiac Device Check - Cardiac Device 13: [id number] Cardiac Interrogation, implant defibrillator w/interim ([id number])
== END ==
PROVIDERS: PCP Physician Assistant; Visit Provider Internal Medicine Cardiovascular Disease
DX: Z45.02 Encounter for adjustment and management of automatic implantable cardiac defibrillator (principal)
CPT/HCPCS: 93295

== ENCOUNTER 2024-04-18 13:26 | Outpatient (AMB) | payer MEDICARE, MEDICAID, SELFPAY ==
--- NOTE | 2024-04-18 13:28 | A.OFFVIS_ITS ---
Vital Signs 04/18/24 13:37 Height 4 ft 11 in Weight 109 lb BMI 22.0 BP 182/74 H Blood Pressure Location Rt brachial Position Sitting Pulse 50 Pulse Source Pulse Oximeter Pulse Oximetry (%) 96 Oxygen Delivery Method Room Air Intake Visit Reasons: PILL COUNT Intake Note: Luci comes in today for a pill count to oxycodone, patient should have 56 tablets and presents with 59 tablets which she last took today 04/18/24 at 12pm. 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 Patient is supposed to have #56 pills, in her possession has #59 pills. This demonstrates a responsible attitude in regards to the medication regimen. Patient reports mid to moderate analgesia, with no noted side effects. She continues to report left sided low back pain radiating into her left buttock and left thigh with walking, sitting or changing positioning. She has pending MRI of lumbar spine but has been difficulty to complete this at [facility] due to d efibrillator in place and reports MRI has been rescheduled at least 2-3 times. Patient now requests MRI to be completed in outside location. Patient denies any fever, dizziness, chest pain, abdominal or groin pain, constipation, nausea, sedation, dizziness, or urinary retention. She reports current medication regime allows her to be less symptomatic and more functional. [facility] Medical History Renal artery stenosis Heart failure with reduced ejection fraction Acute on chronic systolic (congestive) heart failure Lumbar spondylosis Ischemic cardiomyopathy COVID-19 vaccine series completed History of femoral angiogram Hiatal hernia CAD (coronary artery disease) AAA (abdominal aortic aneurysm) Hx of myocardial infarction Hypertension Peripheral vascular disease CKD (chronic kidney disease) stage 3, GFR 30-59 ml/min History of placement of internal cardiac defibrillator Cervical spondylosis Failed back syndrome, lumbar Surgical History Stented coronary artery Status post cardiac catheterization History of biliary duct stent placement 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 Sister Gynecologic cancer Social History Household Members: Family Household Members Other:: Son Housing: House Are you a primary progressive care unit registered nurse to a significant other at home: No Do you presently have visiting nurse or other home services: No Alcohol intake: never Patient Tobacco Use Status: Former Tobacco user Tobacco use type: Cigarette Years Smoked: 40 e-Cigarette/Vaping Use: Never Used Second Hand Smoke Exposure: No Substance Use Type: Marijuana Advance Directives Date on File: 07/06/21 service: No Current occupational status: disabled Cognitive needs: No Hearing needs: No Vision needs: Yes (Glasses) Review of Systems Const All systems reviewed & are unremarkable except as noted in HPI and below Physical Exam Vital Signs: Last Vital Signs Pulse 50 04/18/24 13:37 BP 182/74 H 04/18/24 13:37 Pulse Ox 96 04/18/24 13:37 Oxygen Delivery Method Room Air 04/18/24 13:37 BMI result Body Mass Index 22.0 On exam today: Appears afebrile. Alert and oriented. Mood and affect appropriate. Follows and participates in conversation appropriately. Respiratory effort is unlabored. No cough. Able to transition from sit to stand unassisted, reports imbalance on LLE due to pain. General: Yes no CVA tenderness Back/Spine/Pelvis Other: Limited lumbar ROM due to pain. Lumbar extension and flexion reproduces moderate-severe pain. Back: no CVA tenderness Cervical Spine: loss of normal cervical lordosis, cervical muscular tenderness and No Cervical spine tenderness Thoracic/Lumbar Spine: thoracic and lumbar spine normal to inspection, Thor acic/lumbar spine scar(s), Lasegue's sign positive on the left and diffuse, pain with thoraco-lumbar ROM, paraspinal muscle tenderness, thoraco-lumbar ROM limited, No thoracic spinal tenderness, lumbar spinal tenderness at L4 and at L5 and straight leg raise positive left at 40 degrees Pelvis: buttock tenderness Sacroiliac joints: on the right nontender and on the left (+Jimbo's, +Stinchfield) tender to palpation Psych Appearance: grossly normal Mental Status: mental status grossly normal Speech and movement: Normal speech and movement present Affect: normal affect Attitude: cooperative Thought process: Normal thought process present Thought content: Normal thought content present, suicidality (none), no hallucinations and No Depressive thoughts present Insight: Good insight present (Psych) Judgement: Good judgement present (Psych) Results Reviewed Results Reviewed: XR LUMBOSACRAL SPINE WITH OBLIQUES 04/27/23 CLINICAL INFORMATION: Postlaminectomy syndrome. COMPARISON: Radiographs dated 05/10/2019. TECHNIQUE: AP, both oblique, and lateral (neutral, flexion and extension) views of the lumbar spine. Lateral view of the lumbosacral junction. FINDINGS: There is bony demineralization. At L3-L4, there is a 4 mm anterolisthesis. There is well-maintained alignment status-post L4-L5 posterior fusion and discectomy, with intact posterior fixator rods, pedicular screws and disc spacer. No hardware failure or loosening is seen. There is no acute fracture or spondylolisthesis. No instability is seen with flexion or extension. No spondylolysis defect is seen on the oblique views. There are aortoiliac atherosclerotic calcifications. Iliac stent material is noted. IMPRESSION: 1. There is well-maintained alignment status-post L4-L5 posterior fusion and discectomies. No hardware failure or loosening is seen. 2. There is mild degenerative disc disease at L3-L4. 3. No instability is seen with flexion or extension. XR SACROILIAC JOINTS 04/27/23 CLINICAL INFORMATION: Sacrococcygeal disorders. COMPARISON: Hip radiographs dated 06/19/2021 and 11/06/2017. FINDINGS: Bones and soft tissues are normal. No fracture. Alignment is anatomic. Sacroiliac joint spaces are well-maintained without erosions or surrounding sclerosis. The acetabular joint spaces are well-maintained. The pubic symphysis is intact. Lumbar orthopedic hardware and right iliac stent material are noted. IMPRESSION: Normal sacroiliac joints. BONE DENSITOMETRY 03/22/24 Osteopenia based on the lowest T-score value of -2.3 in the total femur applying World Health Organization criteria. Assessment & Plan Assessment & Plan (1) Failed back syndrome, lumbar: Code(s): M96.1 - Postlaminectomy syndrome, not elsewhere classified Category: Medical (2) Sacroiliac joint pain: Code(s): M53.3 - Sacrococcygeal disorders, not elsewhere classified Category: Medical (3) Lumbar spondylosis: Code(s): M47.816 - Spondylosis without myelopathy or radiculopathy, lumbar region Category: Medical (4) Opioid contract exists: Code(s): Z79.891 - terminal manager (current) use of opiate analgesic Category: Medical (5) Muscle spasm: Code(s): M62.838 - Other muscle spasm Category: Medical (6) Lumbar radicular syndrome: Code(s): M54.16 - Radiculopathy, lumbar region Category: Medical Plan Patient has shown accountability for her medication regimen and the pill counts were accurate. There is no evidence of misuse, abuse or diversion at this time. [facility] reviewed. Script sent for oxycodone 5 mg QID prn with advanced date of 05/03/24. Patient has Narcan at home. Continue baclofen. Pending lumbar spine MRI, patient requests this to be completed at [facility]. Patient will return to the clinic to discuss results of the MRI findings when it is done and consider interventional therapy vs Neurosurgical evaluation as indicated. All questions were answered and the patient is in agreement with the plan. Follow up in 4 weeks for a pill count or sooner if needed. Orders: Orders MR lumbar spine wo/w con 02/25/24 M54.16 - Radiculopathy, lumbar region Medications: Refilled oxycodone Partial Fill upon patient request. 5 mg PO QID 30 days PRN 120 tabs 0RF pain (scale score 7-10) M47.816 - Spondylosis without myelopathy or radiculopathy, lumbar region, M96.1 - Postlaminectomy syndrome, not elsewhere classified, Z79.891 - terminal manager (current) use of opiate analgesic Coding Level of Care Code Est Pt Level 4 (19914) Diagnoses Failed back syndrome, lumbar M96.1 Sacroiliac joint pain M53.3 Lumbar spondylosis M47.816 Opioid contract exists Z79.891 Muscle spasm M62.838 Lumbar radicular syndrome M54.16
[2024-04-18 13:37] VITALS: BP 182/74; PULSE 50; O2SAT 96; BMI 22.0
== END 2024-04-18 13:55 | disposition home or self-care (01) ==
PROVIDERS: PCP Physician Assistant; Visit Provider Nurse Practitioner Family
DX: M96.1 Postlaminectomy syndrome, not elsewhere classified (principal); M53.3 Sacrococcygeal disorders, not elsewhere classified; M47.816 Spondylosis without myelopathy or radiculopathy, lumbar region; Z79.891 Long term (current) use of opiate analgesic; M62.838 Other muscle spasm; M54.16 Radiculopathy, lumbar region
CPT/HCPCS: 99214

== ENCOUNTER → 2024-04-18 13:26 | Outpatient (BNVA) | payer MEDICARE, MEDICAID, SELFPAY | PROVIDERS: PCP Physician Assistant; Visit Provider Nurse Practitioner Family | DX: Z51.81 Encounter for therapeutic drug level monitoring (principal); M96.1 Postlaminectomy syndrome, not elsewhere classified; M53.3 Sacrococcygeal disorders, not elsewhere classified; M47.816 Spondylosis without myelopathy or radiculopathy, lumbar region; M62.838 Other muscle spasm; M54.16 Radiculopathy, lumbar region; Z79.891 Long term (current) use of opiate analgesic | CPT/HCPCS: 99212 ==

== ENCOUNTER → 2024-05-09 23:59 | Outpatient (BNV) | payer MEDICARE, MEDICAID, SELFPAY ==
--- NOTE | 2024-05-10 14:52 | A.OFFVIS_ITS ---
Intake Visit Reasons: Remote ICD check- [facility] Allergies sacubitril [From Entresto] Adverse Reaction (Severe, Verified 04/18/24 13:38) hyperkalemia valsartan [From Entresto] Adverse Reaction (Severe, Verified 04/18/24 13:38) hyperkalemia FORMERLY [facility], 1928–1983 Medical History Renal artery stenosis Heart failure with reduced ejection fraction Acute on chronic systolic (congestive) heart failure Lumbar spondylosis Ischemic cardiomyopathy COVID-19 vaccine series completed History of femoral angiogram Hiatal hernia CAD (coronary artery disease) AAA (abdominal aortic aneurysm) Hx of myocardial infarction Hypertension Peripheral vascular disease CKD (chronic kidney disease) stage 3, GFR 30-59 ml/min History of placement of internal cardiac defibrillator Cervical spondylosis Failed back syndrome, lumbar Surgical History Stented coronary artery Status post cardiac catheterization History of biliary duct stent placement 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 Sister Gynecologic cancer Social History Household Members: Family Household Members Other:: Son Housing: House Are you a primary critical care nurse specialist to a significant other at home: No Do you presently have visiting nurse or other home services: No Alcohol intake: never Patient Tobacco Use Status: Former Tobacco user Tobacco use type: Cigarette Years Smoked: 40 e-Cigarette/Vaping Use: Never Used Second Hand Smoke Exposure: No Substance Use Type: Marijuana Advance Directives Date on File: 07/06/21 service: No Current occupational status: disabled Cognitive needs: No Hearing needs: No Vision needs: Yes (Glasses) Office Procedures Cardiac Device Check Cardiac Device Check Details: Remote ICD report generated 05/09/2024. ICD function is adequate [id number] Cardiac Interrogation, implant defibrillator w/interim Procedure code (CPT) selection complete Assessment & Plan Assessment & Plan (1) ICD (implantable cardioverter-defibrillator) in place: Code(s): Z95.810 - Presence of automatic (implantable) cardiac defibrillator Category: Medical Plan: See above Coding Level of Care Code Procedure Only Diagnoses ICD (implantable cardioverter-defibrillator) in place Z95.810 CPT Codes Cardiac Device Check - Cardiac Device 13: [id number] Cardiac Interrogation, implant defibrillator w/interim ([id number])
== END ==
PROVIDERS: PCP Physician Assistant; Visit Provider Internal Medicine Cardiovascular Disease
DX: Z45.02 Encounter for adjustment and management of automatic implantable cardiac defibrillator (principal)
CPT/HCPCS: 93295

== ENCOUNTER 2024-05-16 13:02 | Outpatient (AMB) | payer MEDICARE, MEDICAID, SELFPAY ==
--- NOTE | 2024-05-16 13:08 | MHC.OFFVIS ---
Vital Signs 05/16/24 13:17 Height 4 ft 11 in Weight 104 lb 8 oz BMI 21.1 BP 188/75 H Blood Pressure Location Rt brachial Position Sitting Pulse 67 Pulse Source Pulse Oximeter Pulse Oximetry (%) 98 Oxygen Delivery Method Room Air Intake Visit Reasons: Pill Count Intake Note: Luci comes in today for a pill count to oxycodone, patient should have 64 tablets and presents with 70 tablets which she last took today 05/16/24 at 12 pm. 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 Patient is supposed to have #64 pills, in her possession has #70 pills. This demonstrates a responsible attitude in regards to the medication regimen. Patient reports mid to moderate analgesia, with no noted side effects. She continues to report left sided low back pain radiating into her left buttock and left thigh with walking, sitting or changing positioning. She has pending MRI of lumbar spine but has been difficulty to complete this at [facility] and [facility] due to defibrillator in place. Patient now requests MRI to be completed at [facility]. She completed cervical spine MRI in 2019 at [facility] with defibrillator in place without difficulty but is unable to complete it at this time per MRI department. Patient denies any fever, dizziness, chest pain, abdominal or groin pain, constipation, nausea, sedation, dizziness, or urinary retention. She reports current medication regime allows her to be less symptomatic and more functional. [facility] Medical History Renal artery stenosis Heart failure with reduced ejection fraction Acute on chronic systolic (congestive) heart failure Lumbar spondylosis Ischemic cardiomyopathy COVID-19 vaccine series completed History of femoral angiogram Hiatal hernia CAD (coronary artery disease) AAA (abdominal aortic aneurysm) Hx of myocardial infarction Hypertension Peripheral vascular disease CKD (chronic kidney disease) stage 3, GFR 30-59 ml/min History of placement of internal cardiac defibrillator Cervical spondylosis Failed back syndrome, lumbar Surgical History Stented coronary artery Status post cardiac catheterization History of biliary duct stent placement 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 Sister Gynecologic cancer Social History Household Members: Family Household Members Other:: Son Housing: House Are you a primary transitional care liaison to a significant other at home: No Do you presently have visiting nurse or other home services: No Alcohol intake: never Patient Tobacco Use Status: Former Tobacco user Tobacco use type: Cigarette Years Smoked: 40 e-Cigarette/Vaping Use: Never Used Second Hand Smoke Exposure: No Substance Use Type: Marijuana Advance Directives Date on File: 07/06/21 service: No Current occupational status: disabled Cognitive needs: No Hearing needs: No Vision needs: Yes (Glasses) Review of Systems Const All systems reviewed & are unremarkable except as noted in HPI and below Physical Exam Vital Signs: Last Vital Signs Pulse 67 05/16/24 13:17 BP 188/75 H 05/16/24 13:17 Pulse Ox 98 05/16/24 13:17 Oxygen Delivery Method Room Air 05/16/24 13:17 BMI result Body Mass Index 21.1 On exam today: Appears afebrile. No acute distress. Alert and oriented. Mood and affect appropriate. Follows and participates in conversation appropriately. Respiratory effort is unlabored. No cough. Able to transition from sit to stand unassisted, reports imbalance on LLE due to pain. General: Yes no CVA tenderness Back/Spine/Pelvis Other: Limited lumbar ROM due to pain. Lumbar extension, axial rotation and flexion reproduces moderate pain. Back: no CVA tenderness Cervical Spine: loss of normal cervical lordosis, cervical muscular tenderness and No Cervical spine tenderness Thoracic/Lumbar Spine: thoracic and lumbar spine normal to inspection, Thoracic/lumbar spine scar(s), Lasegue's sign positive on the left and localized, pain with thoraco-lumbar ROM, paraspinal muscle tenderness, thoraco-lumbar ROM limited, No thoracic spinal tenderness, lumbar spinal tenderness at L4 and at L5 and straight leg raise positive left at 40 degrees Pelvis: buttock tenderness Sacroiliac joints: on the right nontender and on the left (+Jimbo's, +Stinchfield) tender to palpation Extrem General: Yes capillary refill normal, Yes no clubbing, cyanosis or edema and Yes no calf tenderness Psych Appearance: grossly normal and well kempt Mental Status: mental status grossly normal Speech and movement: Normal speech and movement present and Clear speech present Affect: normal affect Attitude: cooperative Thought process: Normal thought process present Thought content: Normal thought content present, suicidality (none), no hallucinations and Depressive thoughts present Insight: Good insight present (Psych) Judgement: Good judgement present (Psych) Results Reviewed Results Reviewed: XR LUMBOSACRAL SPINE WITH OBLIQUES 04/27/23 CLINICAL INFORMATION: Postlaminectomy syndrome. COMPARISON: Radiographs dated 05/10/2019. TECHNIQUE: AP, both oblique, and lateral (neutral, flexion and extension) views of the lumbar spine. Lateral view of the lumbosacral junction. FINDINGS: There is bony demineralization. At L3-L4, there is a 4 mm anterolisthesis. There is well-maintained alignment status-post L4-L5 posterior fusion and discectomy, with intact posterior fixator rods, pedicular screws and disc spacer. No hardware failure or loosening is seen. There is no acute fracture or spondylolisthesis. No instability is seen with flexion or extension. No spondylolysis defect is seen on the oblique views. There are aortoiliac atherosclerotic calcifications. Iliac stent material is noted. IMPRESSION: 1. There is well-maintained alignment status-post L4-L5 posterior fusion and discectomies. No hardware failure or loosening is seen. 2. There is mild degenerative disc disease at L3-L4. 3. No instability is seen with flexion or extension. XR SACROILIAC JOINTS 04/27/23 CLINICAL INFORMATION: Sacrococcygeal disorders. COMPARISON: Hip radiographs dated 06/19/2021 and 11/06/2017. FINDINGS: Bones and soft tissues are normal. No fracture. Alignment is anatomic. Sacroiliac joint spaces are well-maintained without erosions or surrounding sclerosis. The acetabular joint spaces are well-maintained. The pubic symphysis is intact. Lumbar orthopedic hardware and right iliac stent material are noted. IMPRESSION: Normal sacroiliac joints. BONE DENSITOMETRY 03/22/24 Osteopenia based on the lowest T-score value of -2.3 in the total femur applying World Health Organization criteria. Assessment & Plan Assessment & Plan (1) Failed back syndrome, lumbar: Code(s): M96.1 - Postlaminectomy syndrome, not elsewhere classified Category: Medical (2) Sacroiliac joint pain: Code(s): M53.3 - Sacrococcygeal disorders, not elsewhere classified Category: Medical (3) Lumbar spondylosis: Code(s): M47.816 - Spondylosis without myelopathy or radiculopathy, lumbar region Category: Medical (4) Opioid contract exists: Code(s): Z79.891 - MCFP (current) use of opiate analgesic Category: Medical (5) Muscle spasm: Code(s): M62.838 - Other muscle spasm Category: Medical (6) Lumbar radicular syndrome: Code(s): M54.16 - Radiculopathy, lumbar region Category: Medical Plan Patient has shown accountability for her medication regimen and the pill counts were accurate. There is no evidence of misuse, abuse or diversion at this time. [employer] reviewed. Script sent for oxycodone 5 mg QID prn with advanced date of 06/02/24. Patient has Narcan at home. Pending lumbar spine MRI, patient requests this to be completed at [facility]. Patient will return to the clinic to discuss results of the MRI findings when it is done and consider interventional therapy vs Neurosurgical evaluation as indicated. All questions were answered and the patient is in agreement with the plan. Follow up in 4 weeks for a pill count or sooner if needed. Medications: Refilled oxycodone Partial Fill upon patient request. 5 mg PO QID 30 days PRN 120 tabs 0RF pain (scale score 7-10) M47.816 - Spondylosis without myelopathy or radiculopathy, lumbar region, M96.1 - Postlaminectomy syndrome, not elsewhere classified, Z79.891 - MCFP (current) use of opiate analgesic Coding Level of Care Code Est Pt Level 4 (68460) Diagnoses Failed back syndrome, lumbar M96.1 Sacroiliac joint pain M53.3 Lumbar spondylosis M47.816 Opioid contract exists Z79.891 Muscle spasm M62.838 Lumbar radicular syndrome M54.16
[2024-05-16 13:17] VITALS: BP 188/75; PULSE 67; O2SAT 98; BMI 21.1
== END 2024-05-16 13:41 | disposition home or self-care (01) ==
PROVIDERS: PCP Physician Assistant; Visit Provider Nurse Practitioner Family
DX: M47.816 Spondylosis without myelopathy or radiculopathy, lumbar region (principal); M62.838 Other muscle spasm; M54.16 Radiculopathy, lumbar region; Z79.891 Long term (current) use of opiate analgesic
CPT/HCPCS: 99214

== ENCOUNTER → 2024-05-16 13:02 | Outpatient (BNVA) | payer MEDICARE, MEDICAID, SELFPAY | PROVIDERS: PCP Physician Assistant; Visit Provider Nurse Practitioner Family | DX: M96.1 Postlaminectomy syndrome, not elsewhere classified (principal); M53.3 Sacrococcygeal disorders, not elsewhere classified; M47.26 Other spondylosis with radiculopathy, lumbar region; M62.838 Other muscle spasm; Z51.81 Encounter for therapeutic drug level monitoring; Z79.891 Long term (current) use of opiate analgesic | CPT/HCPCS: 99212 ==

== ENCOUNTER 2024-05-24 13:30 | Outpatient (AMB) | payer MEDICARE, MEDICAID, SELFPAY ==
--- NOTE | 2024-05-24 14:21 | A.OFFVIS_ITS ---
Intake Visit Reasons: Inj-Left hand injection Intake Note: Luci is a 68 yo right hand dominant female who presents today for a left thumb basal joint injection. Patient had an injection done 02/03/24 which she found helpful and would like to repeat it today. Allergies sacubitril [From Entresto] Adverse Reaction (Severe, Verified 05/16/24 13:09) hyperkalemia valsartan [From Entresto] Adverse Reaction (Severe, Verified 05/16/24 13:09) hyperkalemia HPI HPI Inj-Left hand injection: Details: Luci is a 67 year old right hand dominant woman with known left basal joint OA. She presents today with increased pain and would like to discuss treatment options. She was last seen, and injected, on 02/03/24. She says her last injection was helpful and she would like to repeat it today. She says her pain returned ~3 days ago, which is an improvement in how long she has been pain-free following an injection. She states she takes Oxycodone for her back pain. [facility] Medical History Renal artery stenosis Heart failure with reduced ejection fraction Acute on chronic systolic (congestive) heart failure Lumbar spondylosis Ischemic cardiomyopathy COVID-19 vaccine series completed History of femoral angiogram Hiatal hernia CAD (coronary artery disease) AAA (abdominal aortic aneurysm) Hx of myocardial infarction Hypertension Peripheral vascular disease CKD (chronic kidney disease) stage 3, GFR 30-59 ml/min History of placement of internal cardiac defibrillator Cervical spondylosis Failed back syndrome, lumbar Surgical History Stented coronary artery Status post cardiac catheterization History of biliary duct stent placement 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 Sister Gynecologic cancer Social History (Updated 05/24/24 @ 14:42 by Dalymar Mcgowan, RMA) Household Members: Family Household Members Other:: Son Housing: House Are you a primary child care associate teacher to a significant other at home: No Do you presently have visiting nurse or other home services: No Alcohol intake: never Patient Tobacco Use Status: Former Tobacco user Tobacco use type: Cigarette Years Smoked: 40 e-Cigarette/Vaping Use: Never Used Second Hand Smoke Exposure: No Substance Use Type: Marijuana Advance Directives Date on File: 07/06/21 service: No Current occupational status: disabled Current occupation: rt handed Cognitive needs: No Hearing needs: No Vision needs: Yes (Glasses) Review of Systems Const All systems reviewed & are unremarkable except as noted in HPI and below Physical Exam Const General: no acute distress and alert Orientation/consciousness: patient oriented x3 Neuro General: patient oriented x3 Extrem Other: Evaluation of Left Upper Extremity: The patient is alert, oriented, and in no acute distress Neuro: Median, Ulnar, Radial nerves motor and sensory intact and sensation is normal to the tips of all digits Vascular: Cap refill brisk ROM: She can make a fist and extend all of her digits. She can oppose her thumb to all digits. She is most tender about the basal joint of the left thumb. Positive CMC grind Positive shoulder sign Not particularly tender over the 1st dorsal compartment or the MCP joint Radiographs: Psych Appearance: grossly normal Affect: normal affect Attitude: cooperative Office Procedures Fracture Care Details: No fracture, injection Fracture Billing Code: Fracture Billing Code Assessment & Plan Assessment & Plan (1) Arthritis of carpometacarpal (CMC) joint of left thumb: Code(s): M18.12 - Unilateral primary osteoarthritis of first carpometacarpal joint, left hand Category: Medical (2) Opioid contract exists: Code(s): Z79.891 - longterm (current) use of opiate analgesic Category: Medical Plan Assessment & Plan: 1. Left Basal joint arthritis, S/P repeat injections Date of Injections: 05/24/24, 02/03/24, 09/23/23, 01/21/23, 07/07/22, 01/29/22 I educated her about this condition I discussed treatment options, including the possibility of surgery in the future She says her most recent injection gave her good relief for several months After discussing these options, the patient would like to proceed with a repeat injection today I discussed activity modification, they should limit or avoid any heavy or repetitive pinching or gripping activities She was fitted for a new comfort cool brace to wear with daily activity Injection #1 : The risks and benefits of a steroid injection including but not limited to risk of damage to blood vessels, nerve, tendon, infection, skin bleaching, persistent or worsening pain, and failure to improve symptoms were discussed with the patient and they wish to proceed with the steroid injection. Once consent was obtained the skin over the dorsum of the Left basal joint was sterilely prepped. The joint was then injected with a combination of 1 mL of (40 mg/ml} Depo-Medrol and 1% plain Lidocaine. The patient appears to have t olerated the procedure well and with no complications. She had good early relief before leaving clinic today. She knows that they may not have another steroid injection into this joint for least 4 months. Please note that this patient has a significant cardiac condition, and evidently had a major heart attack following spine surgery. She has an implantable cardiac defibrillator in place, and is on Xarelto. She also has other medical conditions that make surgery less attractive. She says she was told that she should only have surgery if it is absolutely necessary. Recommended the use of Tylenol or Ibuprofen OTC to help with relief once the numbing medication wears off. Follow up will be in about 4 months for another injection. She will call the office if she is not needing the injection at that time. Scribed for Gina Wallace MD by Nader Staples medical health researcher, on 05/24/24 at 2:55 PM, EST. Coding Level of Care Code Est Pt Level 3 (30173) Diagnoses Arthritis of carpometacarpal (CMC) joint of left thumb M18.12 Opioid contract exists Z79.891 CPT Codes Fracture Care - Fracture Billing Code: Fracture Billing Code ([id number])
== END 2024-05-24 15:12 | disposition home or self-care (01) ==
PROVIDERS: PCP Physician Assistant; Visit Provider Orthopaedic Surgery
DX: M18.12 Unilateral primary osteoarthritis of first carpometacarpal joint, left hand (principal); Z79.891 Long term (current) use of opiate analgesic
CPT/HCPCS: 20600; 99213

== ENCOUNTER → 2024-05-24 13:30 | Outpatient (BNVA) | payer MEDICARE, MEDICAID, SELFPAY | PROVIDERS: PCP Physician Assistant; Visit Provider Orthopaedic Surgery | DX: M18.12 Unilateral primary osteoarthritis of first carpometacarpal joint, left hand (principal); Z79.891 Long term (current) use of opiate analgesic | CPT/HCPCS: 20600; 99212; J1010 ==

== ENCOUNTER 2024-06-14 13:28 | Outpatient (AMB) | payer MEDICARE, MEDICAID, SELFPAY ==
--- NOTE | 2024-06-14 13:29 | A.OFFVIS_ITS ---
Vital Signs 06/14/24 13:36 Height 4 ft 11 in Weight 107 lb BMI 21.6 BP 186/79 H Blood Pressure Location Rt brachial Position Sitting Pulse 60 Pulse Source Pulse Oximeter Pulse Oximetry (%) 97 Oxygen Delivery Method Room Air Intake Visit Reasons: Pill Count Intake Note: Luci comes in today for a pill count to oxycodone, patient should have 68 tablets and presents with 71 tablets which she last took today 06/14/24 at 10:30am. 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 Patient is supposed to have #68 pills, in her possession has #71 pills. This demonstrates a responsible attitude in regards to the medication regimen. Patient reports mid to moderate analgesia, with no noted side effects. She continues to report left sided low back pain radiating into her left buttock and left thigh with walking, sitting or changing positioning. She has pending MRI of lumbar spine but [place] [facility] [email or web address]] due to defibrillator in place. Patient reports this [place] [facility] [place], but she is on their cancellation list as well. Patient denies any fever, dizziness, chest pain, abdominal or groin pain, constipation, nausea, sedation, dizziness, or urinary retention. She reports current medication regime allows her to be less symptomatic and more functional. [facility] Medical History Renal artery stenosis Heart failure with reduced ejection fraction Acute on chronic systolic (congestive) heart failure Lumbar spondylosis Ischemic cardiomyopathy COVID-19 vaccine series completed History of femoral angiogram Hiatal hernia CAD (coronary artery disease) AAA (abdominal aortic aneurysm) Hx of myocardial infarction Hypertension Peripheral vascular disease CKD (chronic kidney disease) stage 3, GFR 30-59 ml/min History of placement of internal cardiac defibrillator Cervical spondylosis Failed back syndrome, lumbar Surgical History Stented coronary artery Status post cardiac catheterization History of biliary duct stent placement 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 Sister Gynecologic cancer Social History Household Members: Family Household Members Other:: Son Housing: House Are you a primary critical care specialist to a significant other at home: No Do you presently have visiting nurse or other home services: No Alcohol intake: never Patient Tobacco Use Status: Former Tobacco user Tobacco use type: Cigarette Years Smoked: 40 e-Cigarette/Vaping Use: Never Used Second Hand Smoke Exposure: No Substance Use Type: Marijuana Advance Directives Date on File: 07/06/21 service: No Current occupational status: disabled Current occupation: rt handed Cognitive needs: No Hearing needs: No Vision needs: Yes (Glasses) Review of Systems Const All systems reviewed & are unremarkable except as noted in HPI and below Physical Exam Vital Signs: Last Vital Signs Pulse 60 06/14/24 13:36 BP 186/79 H 06/14/24 13:36 Pulse Ox 97 06/14/24 13:36 Oxygen Delivery Method Room Air 06/14/24 13:36 BMI result Body Mass Index 21.6 On exam today: Appears afebrile. Alert and oriented. Mood and affect appropriate. Follows and participates in conversation appropriately. Respiratory effort is unlabored. No cough. Able to transition from sit to stand unassisted, reports imbalance on LLE due to pain. General: Yes no CVA tenderness Back/Spine/Pelvis Other: Limited lumbar ROM due to pain. Lumbar extension, axial rotation and flexion reproduces moderate pain. Positive facet loading bilatearlly. Mild TTP to bilateral GTB. Back: no CVA tenderness Cervical Spine: loss of normal cervical lordosis, cervical muscular tenderness and No Cervical spine tenderness Thoracic/Lumbar Spine: thoracic and lumbar spine normal to inspection, Thoracic/lumbar spine scar(s), Lasegue's sign positive on the left and localized, pain with thoraco-lumbar ROM, paraspinal muscle tenderness, thoraco- lumbar ROM limited, No thoracic spinal tenderness, lumbar spinal tenderness at L4 and at L5 and straight leg raise positive left at 40 degrees Pelvis: buttock tenderness Sacroiliac joints: on the right nontender and on the left (+Jimbo's, +Stinchfield) tender to palpation Extrem General: Yes capillary refill normal, Yes no clubbing, cyanosis or edema and Yes no calf tenderness Psych Appearance: grossly normal Mental Status: mental status grossly normal Speech and movement: Normal speech and movement present and Clear speech present Affect: normal affect Attitude: cooperative Thought process: Normal thought process present Thought content: Normal thought content present, suicidality (none), no hallucinations and Depressive thoughts present Insight: Good insight present (Psych) Judgement: Good judgement present (Psych) Results Reviewed Results Reviewed: XR LUMBOSACRAL SPINE WITH OBLIQUES 04/27/23 CLINICAL INFORMATION: Postlaminectomy syndrome. COMPARISON: Radiographs dated 05/10/2019. TECHNIQUE: AP, both oblique, and lateral (neutral, flexion and extension) views of the lumbar spine. Lateral view of the lumbosacral junction. FINDINGS: There is bony demineralization. At L3-L4, there is a 4 mm anterolisthesis. There is well-maintained alignment status-post L4-L5 posterior fusion and discectomy, with intact posterior fixator rods, pedicular screws and disc spacer. No hardware failure or loosening is seen. There is no acute fracture or spondylolisthesis. No instability is seen with flexion or extension. No spondylolysis defect is seen on the oblique views. There are aortoiliac atherosclerotic calcifications. Iliac stent material is noted. IMPRESSION: 1. There is well-maintained alignment status-post L4-L5 posterior fusion and discectomies. No hardware failure or loosening is seen. 2. There is mild degenerative disc disease at L3-L4. 3. No instability is seen with flexion or extension. XR SACROILIAC JOINTS 04/27/23 CLINICAL INFORMATION: Sacrococcygeal disorders. COMPARISON: Hip radiographs dated 06/19/2021 and 11/06/2017. FINDINGS: Bones and soft tissues are normal. No fracture. Alignment is anatomic. Sacroiliac joint spaces are well-maintained without erosions or surrounding sclerosis. The acetabular joint spaces are well-maintained. The pubic symphysis is intact. Lumbar orthopedic hardware and right iliac stent material are noted. IMPRESSION: Normal sacroiliac joints. BONE DENSITOMETRY 03/22/24 Osteopenia based on the lowest T-score value of -2.3 in the total femur applying World Health Organization criteria. Assessment & Plan Assessment & Plan (1) Failed back syndrome, lumbar: Code(s): M96.1 - Postlaminectomy syndrome, not elsewhere classified Category: Medical (2) Sacroiliac joint pain: Code(s): M53.3 - Sacrococcygeal disorders, not elsewhere classified Category: Medical (3) Lumbar spondylosis: Code(s): M47.816 - Spondylosis without myelopathy or radiculopathy, lumbar region Category: Medical (4) Opioid contract exists: Code(s): Z79.891 - FDC (current) use of opiate analgesic Category: Medical (5) Muscle spasm: Code(s): M62.838 - Other muscle spasm Category: Medical (6) Lumbar radicular syndrome: Code(s): M54.16 - Radiculopathy, lumbar region Category: Medical Plan Patient has shown accountability for her medication regimen and the pill counts were accurate. There is no evidence of misuse, abuse or diversion at this time. [employer] reviewed. Script sent for oxycodone 5 mg QID prn with advanced date of 06/02/24. Patient has Narcan at home. Pending lumbar spine [place] [facility] Patient will return to the clinic to discuss results of the MRI findings when it is done and consider interventional therapy vs Neurosurgical evaluation as indicated. All questions were answered and the patient is in agreement with the plan. Follow up in 4 weeks for a pill count or sooner if needed. Medications: Refilled oxycodone Partial Fill upon patient request. 5 mg PO QID 30 days PRN 120 tabs 0RF pain (scale score 7-10) M47.816 - Spondylosis without myelopathy or radiculopathy, lumbar region, M96.1 - Postlaminectomy syndrome, not elsewhere classified, Z79.891 - FDC (current) use of opiate analgesic Coding Level of Care Code Est Pt Level 4 (60013) Complex EM visit Add On G2211 Diagnoses Failed back syndrome, lumbar M96.1 Sacroiliac joint pain M53.3 Lumbar spondylosis M47.816 Opioid contract exists Z79.891 Muscle spasm M62.838 Lumbar radicular syndrome M54.16
[2024-06-14 13:36] VITALS: BP 186/79; PULSE 60; O2SAT 97; BMI 21.6
== END 2024-06-14 13:45 | disposition home or self-care (01) ==
PROVIDERS: PCP Physician Assistant; Visit Provider Nurse Practitioner Family
DX: M96.1 Postlaminectomy syndrome, not elsewhere classified (principal); M53.3 Sacrococcygeal disorders, not elsewhere classified; M47.816 Spondylosis without myelopathy or radiculopathy, lumbar region; Z79.891 Long term (current) use of opiate analgesic; M62.838 Other muscle spasm; M54.16 Radiculopathy, lumbar region
CPT/HCPCS: 99214; G2211

== ENCOUNTER → 2024-06-14 13:28 | Outpatient (BNVA) | payer MEDICARE, MEDICAID, SELFPAY | PROVIDERS: PCP Physician Assistant; Visit Provider Nurse Practitioner Family | DX: Z45.02 Encounter for adjustment and management of automatic implantable cardiac defibrillator (principal); I50.20 Unspecified systolic (congestive) heart failure; I25.10 Atherosclerotic heart disease of native coronary artery without angina pectoris | CPT/HCPCS: 93005; 99212 ==

== ENCOUNTER 2024-06-14 14:32 | Outpatient (AMB) | payer MEDICARE, MEDICAID, SELFPAY ==
[2024-06-14 14:40] VITALS: BP 140/62; PULSE 51; BMI 21.6
--- NOTE | 2024-06-14 14:40 | A.OFFVIS_ITS ---
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 Accompanied by: Self / Same As Patient Allergies sacubitril [From Entresto] Adverse Reaction (Severe, Verified 06/14/24 13:37) hyperkalemia valsartan [From Entresto] Adverse Reaction (Severe, Verified 06/14/24 13:37) hyperkalemia Medication List - Last Reconciled 06/14/24 by Maxwell Le MD alendronate 70 mg PO QWEEK aspirin (Adult Low Dose Aspirin) 81 mg PO DAILY atorvastatin 80 mg PO DAILY baclofen 10 mg PO BID PRN blood pressure monitor As directed calcium carbonate (Oyster Shell Calcium) 500 mg PO DAILY 90 days diphenoxylate-atropine 2.5-0.025 mg 1 tab PO BID PRN ezetimibe 10 mg PO DAILY furosemide 20 mg PO DAILY hydroxyzine HCl 20 mg (2 x 10 mg) PO BEDTIME 30 days metoprolol succinate ER 50 mg PO DAILY naloxone 4 mg/actuation (Narcan) 4 mg intranasal Q2M PRN oxycodone 5 mg PO QID PRN 30 days rivaroxaban (Xarelto) 2.5 mg PO BID HPI Comments Details: Luci comes for follow-up in 6 months. Her main issue currently is left- sided lumbar discomfort. She also gets lower midthoracic discomfort. No cardiac symptoms. Denies any chest pain, worsening shortness of breath, orthopnea, PND, leg edema. Scheduled to undergo MRI in August. She says she is very bothered by the symptoms. Denies any prolonged palpitation, irregular heartbeat, lightheadedness, syncope, ICD discharge. Takes all her medications. She also has symptoms suggestive of claudication although she does not want any further intervention at this point time and once resolve her spine issues 1st. [facility] Medical History Renal artery stenosis Heart failure with reduced ejection fraction Acute on chronic systolic (congestive) heart failure Lumbar spondylosis Ischemic cardiomyopathy COVID-19 vaccine series completed History of femoral angiogram Hiatal hernia CAD (coronary artery disease) AAA (abdominal aortic aneurysm) Hx of myocardial infarction Hypertension Peripheral vascular disease CKD (chronic kidney disease) stage 3, GFR 30-59 ml/min History of placement of internal cardiac defibrillator Cervical spondylosis Failed back syndrome, lumbar Surgical History Stented coronary artery Status post cardiac catheterization History of biliary duct stent placement 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 Sister Gynecologic cancer Social History Household Members: Family Household Members Other:: Son Housing: House Are you a primary dog day care attendant to a significant other at home: No Do you presently have visiting nurse or other home services: No Alcohol intake: never Patient Tobacco Use Status: Former Tobacco user Tobacco use type: Cigarette Years Smoked: 40 e-Cigarette/Vaping Use: Never Used Second Hand Smoke Exposure: No Substance Use Type: Marijuana Advance Directives Date on File: 07/06/21 service: No Current occupational status: disabled Current occupation: rt handed Cognitive needs: No Hearing needs: No Vision needs: Yes (Glasses) Review of Systems Const Denies chills, Denies fatigue, Denies fever(s), Denies frequent falls, Denies weakness, Denies weight gain and Denies weight loss ENT Denies dizziness Card Denies chest pain, Denies leg edema, Denies lightheadedness, Denies palpitations, Denies dyspnea and Denies dyspnea on exertion Resp Denies cough, Denies dyspnea and Denies dyspnea on exertion GI Denies hematochezia Musc Denies abnormal gait, Denies muscle weakness, Denies numbness, Denies radiating pain into limb and Denies tingling Neuro Denies abnormal gait, Denies dizziness, Denies frequent falls, Denies numbness, Denies tingling and Denies weakness Endo Denies fatigue and Denies palpitations Physical Exam Vital Signs: Last Vital Signs Pulse 51 06/14/24 14:40 BP 140/62 H 06/14/24 14:40 BMI result Body Mass Index 21.6 Const General: cooperative, comfortable, no acute distress, alert and awake Nutritional Appearance: thin and other (Frail elderly woman) Orientation/consciousness: patient oriented x3 Limitations: no limitations Neck Neck: Yes normal visual inspection and Yes no JVD Carotids: bruit Resp Effort & Inspection: normal respiratory effort Auscultation: clear to auscultation bilaterally, no rales, no rhonchi and no wheezes Cardio Rate: regular rate Rhythm: regular rhythm Heart sounds: S1 normal heart sound present, S2 normal heart sound present, no gallops, no murmurs and no rubs Peripheral pulses: other (Reduced pulses in the lower extremities) GI Inspection: Yes normal to inspection Skin General skin exam: no rashes or lesions noted and ecchymosis Neuro General: patient oriented x3 and no focal motor deficits Extrem Other: Right groin site with resolving ecchymosis, palpable femoral pulse noted, no bruit General: Yes normal to inspection and No no pedal edema Office Procedures Cardiac Device Check Cardiac Device Check Details: Single-chamber [facility] ICD in place. Programmed in VVI at 40 beats per minute. No significant arrhythmias detected. Minimal ventricular pacing noted. Ventricular pacing thresholds are stable. Ventricular sensing is excellent. Pacing and shock lead impedance is stable battery life is at 4.1 years [id number] Cardiac Device Check, single lead implantable defibrillator Procedure code (CPT) selection complete EKG Details: EKG shows sinus bradycardia with septal infarct with diffuse T-wave inversions in the high lateral anterolateral leads, unchanged from before probably repolarization abnormality/ischemic cardiomyopathy. [id number], Complete Assessment & Plan Assessment & Plan (1) Heart failure with reduced ejection fraction: Code(s): I50.20 - Unspecified systolic (congestive) heart failure Category: Medical Plan: Heart failure with reduced ejection fraction secondary to ischemic cardiomyopathy with moderate LV systolic dysfunction. Clinically euvolemic and well compensated on current low-dose diuretic therapy. Heart failure management discussed. Continue current diuretic regimen. Daily weight monitoring avoidance of salt loading was discussed. Continue current neurohormonal modulation with metoprolol, could not tolerate other medications at this point time. Will follow-up echocardiogram in 6 months time. (2) Atherosclerotic cardiovascular disease: Code(s): I25.10 - Atherosclerotic heart disease of [place] coronary artery without angina pectoris Category: Medical Plan: Diffuse and significant atherosclerotic disease including prior CAD and coronary artery bypass grafting with LAD territory infarct. Has diffuse peripheral vascular disease, abdominal aortic aneurysm as well as carotid disease. Peripheral vascular disease being followed by . She will continue to follow with him. Continue low-dose aspirin therapy and low-dose anticoagulation to reduce cardiovascular as well as limb loss events. Monitor carotid duplex in the near future. Also suggest abdominal ultrasound to monitor her abdominal aortic aneurysm. Continue aggressive vascular risk factor modification. Continue high-intensity statin therapy along with ezetimibe therapy with target goal LDL closer to 50 mg/dL. Continue aggressive blood pressure control. Advised to maintain activity level as tolerated although she is limited because of her musculoskeletal issues. (3) ICD (implantable cardioverter-defibrillator) in place: Code(s): Z95.810 - Presence of automatic (implantable) cardiac defibrillator Category: Medical Plan: ICD in place for primary prevention. ICD is working well. Reprogrammed for adequate functioning. Will monitor remotely for heart failure as well as device function. Will follow up in the clinic in 6 months time, sooner p.r.n.. Thank you for allowing me to partake in her care Orders: Orders US carotid duplex BI Today I65.23 - Occlusion and stenosis of bilateral carotid arteries CA echo transthoracic complete Today I25.5 - Ischemic cardiomyopathy US abdominal aortic aneurysm Today I71.4 - Abdominal aortic aneurysm, without rupture Lipid Panel Today I25.10 - Atherosclerotic heart disease of [place] coronary artery without angina pectoris Basic Metabolic Panel Today I25.10 - Atherosclerotic heart disease of [place] coronary artery without angina pectoris Complete Blood Count no Diff Today I25.10 - Atherosclerotic heart disease of [place] coronary artery without angina pectoris Coding Level of Care Code Est Pt Level 4 (76614) Diagnoses Heart failure with reduced ejection fraction I50.20 Atherosclerotic cardiovascular disease I25.10 ICD (implantable cardioverter-defibrillator) in place Z95.810 CPT Codes Cardiac Device Check - Cardiac Device 4: [id number] Cardiac Device Check, single lead implantable defibrillator ([id number]) EKG - CPT: 16382-Ckberkkxqrkwwbstp, Complete ([id number])
== END 2024-06-14 15:12 | disposition home or self-care (01) ==
PROVIDERS: PCP Physician Assistant; Visit Provider Internal Medicine Cardiovascular Disease
DX: I50.20 Unspecified systolic (congestive) heart failure (principal); I25.10 Atherosclerotic heart disease of native coronary artery without angina pectoris; Z95.810 Presence of automatic (implantable) cardiac defibrillator
CPT/HCPCS: 93010; 93282; 99214

== ENCOUNTER 2024-06-21 11:42 | Outpatient (REF) | payer MEDICARE, MEDICAID, SELFPAY ==
--- NOTE | ~2024-06-21 | XR_ITS ---
EXAMINATION: XR CHEST CLINICAL INFORMATION: Cough COMPARISON: Chest x-ray on 08/15/2021 TECHNIQUE: 2 views of the chest were obtained. FINDINGS: The cardiac silhouette is normal. There is mild diffuse bronchial wall thickening. There are no areas of consolidation. There are no pleural effusions or pneumothoraces. There is a left chest single-lead ICD. XR/XR chest 2V IMPRESSION: Bronchial wall thickening may be infectious and/or inflammatory in etiology. Electronically signed by: Aditi Kate MD 06/26/2024 08:27 AM EDT
[2024-06-21 12:37] LABS: Hematocrit 36.7 % (37.0-47.0); Hemoglobin 12.2 g/dl (12.0-16.0); Mean Corpuscular HGB Conc 33.2 g/dl (31.0-35.0); Mean Corpuscular Hemoglobin 30.3 pg (27.0-33.0); Mean Corpuscular Volume 91.3 fL (80.0-98.0); Mean Platelet Volume 10.2 fL (9.4-12.3); Platelet Count 151 X10*3/uL (160-400); Red Blood Count 4.02 X10*6/uL (4.20-5.50); White Blood Count 8.2 X10*3/uL (4.8-10.8)
[2024-06-21 13:03] LABS: Anion Gap 14 (12-20); Blood Urea Nitrogen 10 mg/dL (9-16); Calcium 9.8 mg/dL (8.4-10.2); Carbon Dioxide 24 mmol/L (22-29); Chloride 110 mmol/L (96-108); Cholesterol 133 mg/dL (<200); Estimated Glomerular Filt Rate 50; Glucose Random 99 mg/dL (60-115); HDL Cholesterol 37 mg/dL (>40); LDL Cholesterol Calculated 69 mg/dL (<100); Potassium 5.6 mmol/L (3.3-5.1); Sodium 142 mmol/L (135-145); Triglycerides 136 mg/dL (<150)
== END 2024-06-21 11:43 | disposition home or self-care (01) ==
LOC: HO.XRAY 11:42
PROVIDERS: Absent Provider Internal Medicine Cardiovascular Disease; PCP Physician Assistant; Visit Provider Physician Assistant
DX: R05.9 Cough, unspecified (principal); I25.10 Atherosclerotic heart disease of native coronary artery without angina pectoris
CPT/HCPCS: 36415; 71046; 80048; 80061; 85027

== ENCOUNTER → 2024-06-22 23:59 | Outpatient (BNV) | payer MEDICARE, MEDICAID, SELFPAY ==
--- NOTE | 2024-06-22 15:49 | MHC.OFFVIS ---
Intake Visit Reasons: Remote ICD check- [facility] Allergies sacubitril [From Entresto] Adverse Reaction (Severe, Verified 06/14/24 13:37) hyperkalemia valsartan [From Entresto] Adverse Reaction (Severe, Verified 06/14/24 13:37) hyperkalemia [facility] Medical History Renal artery stenosis Heart failure with reduced ejection fraction Acute on chronic systolic (congestive) heart failure Lumbar spondylosis Ischemic cardiomyopathy COVID-19 vaccine series completed History of femoral angiogram Hiatal hernia CAD (coronary artery disease) AAA (abdominal aortic aneurysm) Hx of myocardial infarction Hypertension Peripheral vascular disease CKD (chronic kidney disease) stage 3, GFR 30-59 ml/min History of placement of internal cardiac defibrillator Cervical spondylosis Failed back syndrome, lumbar Surgical History Stented coronary artery Status post cardiac catheterization History of biliary duct stent placement 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 Sister Gynecologic cancer Social History Household Members: Family Household Members Other:: Son Housing: House Are you a primary client care specialist to a significant other at home: No Do you presently have visiting nurse or other home services: No Alcohol intake: never Patient Tobacco Use Status: Former Tobacco user Tobacco use type: Cigarette Years Smoked: 40 e-Cigarette/Vaping Use: Never Used Second Hand Smoke Exposure: No Substance Use Type: Marijuana Advance Directives Date on File: 07/06/21 service: No Current occupational status: disabled Current occupation: rt handed Cognitive needs: No Hearing needs: No Vision needs: Yes (Glasses) Office Procedures Cardiac Device Check Cardiac Device Check Details: Remote ICD report generated 06/22/2024. ICD function is adequate [id number] Cardiac Interrogation, implant defibrillator w/interim Procedure code (CPT) selection complete Assessment & Plan Assessment & Plan (1) ICD (implantable cardioverter-defibrillator) in place: Code(s): Z95.810 - Presence of automatic (implantable) cardiac defibrillator Category: Medical Plan: See above Coding Level of Care Code Procedure Only Diagnoses ICD (implantable cardioverter-defibrillator) in place Z95.810 CPT Codes Cardiac Device Check - Cardiac Device 13: [id number] Cardiac Interrogation, implant defibrillator w/interim ([id number])
== END ==
PROVIDERS: PCP Physician Assistant; Visit Provider Internal Medicine Cardiovascular Disease
DX: Z45.02 Encounter for adjustment and management of automatic implantable cardiac defibrillator (principal)
CPT/HCPCS: 93295

== ENCOUNTER 2024-06-23 09:56 | Outpatient (REF) | payer MEDICARE, MEDICAID, SELFPAY ==
--- NOTE | ~2024-06-23 | US_ITS ---
EXAMINATION: US ABDOMINAL AORTIC CLINICAL INFORMATION: Abdominal aortic aneurysm COMPARISON: 06/18/2020 TECHNIQUE: Real-time ultrasound and Doppler techniques (integrating B-mode 2-D vascular images, Doppler spectral analysis and color flow Doppler imaging) were utilized to interrogate the abdominal aorta. FINDINGS: There is atherosclerotic disease. Proximal aorta: 2.4 cm AP; 0.4 cm transverse. Middle aorta: 2.3 cm AP; 2.3 cm transverse. Distal aorta: 4.3 cm AP; 2.9 cm transverse. Right common iliac artery: 1.0 cm. Left common iliac artery: 0.9 cm ADDITIONAL FINDINGS: None. US/US abdominal aortic aneurysm IMPRESSION: 4.3 cm infrarenal abdominal aortic aneurysm. Based on published guidelines in J Am Zac Radiol 2013; 10(10):789-794 and J Vasc Surg. 2018; 67:2-77, the recommendation for an abdominal aortic aneurysm with diameter 4.0-4.4 cm is vascular consultation and subsequent follow-up every 12 months. Electronically signed by: Aditi Kate MD 06/26/2024 08:27 AM EDT
--- NOTE | ~2024-06-23 | US_ITS ---
EXAMINATION: US EXTRACRANIAL CAROTID DUPLEX, BILATERAL CLINICAL INFORMATION: Stenosis of the carotid arteries COMPARISON: Carotid duplex on 09/09/2021 TECHNIQUE: Real-time ultrasound and Doppler techniques (integrating B-mode 2-D vascular images, Doppler spectral analysis and color-flow Doppler imaging) were utilized to interrogate the extracranial carotid arteries, the vertebral arteries and proximal subclavian arteries bilaterally. The degree of stenosis is determined by criteria similar to NASCET. FINDINGS: Right Side: 1. There is moderate atherosclerotic plaque seen in the bifurcation/proximal ICA region. 2. The common carotid artery PSV proximally is 110 cm/s and distally 84 cm/s. 3. The proximal internal carotid artery velocities are 175 cm/s systolic and 55 cm/s diastolic. 4. The proximal external carotid artery PSV is 86 cm/s. 5. The vertebral artery shows antegrade flow. 6. The subclavian artery waveforms are normal. Left Side: 1. There is moderate atherosclerotic plaque seen in the bifurcation/proximal ICA region. 2. The common carotid artery PSV proximally is 112 cm/s and distally 108 cm/s. 3. The proximal internal carotid artery velocities are 291 cm/s systolic and 53 cm/s diastolic. 4. The proximal external carotid artery PSV is 116 cm/s. 5. The vertebral artery shows antegrade flow. 6. The subclavian artery waveforms are normal. US/US carotid duplex BI IMPRESSION: 1. RIGHT: Moderate, hemodynamically significant stenosis of the proximal right internal carotid artery corresponding to a 50-79% stenosis by velocity criteria. 2. LEFT: Moderate, hemodynamically significant stenosis of the proximal left internal carotid artery corresponding to a 50-79% stenosis by velocity criteria. 3. There is no change in the category severity of disease when compared to the previous study dated 09/09/2021 or 04/02/2021. Electronically signed by: Aditi Kate MD 06/26/2024 08:25 AM EDT
== END 2024-06-23 09:57 | disposition home or self-care (01) ==
LOC: HO.US 09:56
PROVIDERS: PCP Physician Assistant; Visit Provider Internal Medicine Cardiovascular Disease
DX: I65.23 Occlusion and stenosis of bilateral carotid arteries (principal); I71.40 Abdominal aortic aneurysm, without rupture, unspecified
CPT/HCPCS: 76706; 93880

== ENCOUNTER → 2024-06-30 12:57 | Outpatient (REF) | payer MEDICARE, MEDICAID, SELFPAY ==
--- NOTE | 2024-06-30 13:08 | CA_ITS ---
Transthoracic Echocardiogram Patient (Last, First, Middle): Luci Grady, Gender: Female Date of : 1955 Age: 68 Procedure Date: 06/30/2024 Procedure Type: Transthoracic Echocardiogram Location: OP Height: 149.86 cm Weight: 47.63 kg BSA: 1.40 m2 Heart Rate: bpm BP: 148 / 70 mmHg Cager Operator: TO Referring MD: Maxwell Le MD Support Technician: Maxwell Le MD Symptoms: I25.5 - Ischemic cardiomyopathy Study Quality: Adequate w contrast ECG Rhythm: Sinus Conclusions: - 1. Moderate to severe LV systolic dysfunction with LVEF of 30 35% with impaired relaxation filling pattern 2. Moderate RV systolic dysfunction 3. Mild mitral regurgitation 4. Normal RV systolic pressure 5. No gross pericardial effusion Findings Procedure Information Contrast agent, definity, is being given per protocol without apparent complications. Left Ventricle Normal left ventricular cavity size. There is normal left ventricular wall thickness. The left ventricular systolic function is moderate to severely decreased. The visually estimated ejection fraction is between 30-35%. Spectral Doppler is indicative of an impaired relaxation filling pattern. E/E prime ratio is between 8 and 15 consistent with indeterminate filling pressures. Wall Motion Rest Echo Findings The mid inferoseptal segment is hypokinetic. The apical anterior, mid anterior, apical lateral, apical septum, and mid anteroseptal segments are akinetic. The apex segment is dyskinetic. All other scored wall segments showed normal motion. Right Ventricle Normal right ventricular cavity size. There is moderately decreased right ventricular systolic function. There is an ICD wire seen in the right ventricle. Atria The left atrium is mildly dilated. There is no evidence of interatrial shunt. The right atrium is normal in size. Aortic Valve There is mild calcification of the aortic valve. There is mild thickening of the aortic valve. There is no aortic valve stenosis. There is no aortic valve regurgitation. Mitral Valve There is mild anterior and posterior mitral leaflet thickening. There is mild mitral annular calcification. There is mild mitral valve regurgitation. There is no mitral valve stenosis. Pulmonic Valve The pulmonic valve is likely normal. There is trace pulmonic valve regurgitation. Tricuspid Valve Normal tricuspid valve structure. There is mild tricuspid valve regurgitation. The right ventricular systolic pressure is normal. The right ventricular systolic pressure is 31 mmHg. Normal right atrial pressure. There is no evidence of pulmonary hypertension. Great Vessels The pulmonary artery was not well visualized. There is no dilatation of the ascending aorta measuring 3.10 cm. Moderate plaque is seen in the sino tubular ridge. Venous The inferior vena cava is normal in size and collapses greater than 50% with inspiration. Pericardium/Pleural There is no evidence of pericardial effusion. Prior Study Comparison Changes noted compared to prior study dated: 01/23/2023. LV systolic function has deteriorated Measurements 2D Linear Measurements IVSd: 0.91 0.6-0.9/0.6-1.0 cm LVIDd: 5.03 3.9-5.3/4.2-5.9 cm LVIDd Index: 3.59 2.4-3.2/2.2-3.1 cm/m2 LVIDs: 4.11 2.0-3.6 cm LVPWd: 0.77 0.7-1.1 cm LA Diam: 4.20 2.7-3.8/3.0-4.0 cm LAIDs Index: 3.00 1.5-2.3 cm/m2 LV Mass: 181.28 67-162/88-224 g LV Mass Index: 129.49 43-95/49-115 g/m2 LVOT Diam: 2.00 3.0+(-)1.3 cm 2D Systolic Function EF 4C: 32.60 >55% EF 2C: 36.50 >55% EF BiP: 33.30 >55% Mitral Valve MV Pk E: 0.45 MV PK A: 0.82 MV Decel Time: 357.00 E/A: 0.50 E'Lateral: 2.94 E'Medial: 3.48 E/E' Med: 12.90 E/E' Lat: 15.30 PHT: 104.00 MVA PHT: 2.12 Decel Forest: 1.26 Aortic Valve AoV Pk Eb: 1.30 AoV Mn Eb: 0.80 AoV VTI: 0.31 AoV Pk Grad: 7.00 Aov Mn Grad: 3.00 MONSE Cont.VTI: 2.10 LVOT LVOT Pk Eb: 0.91 LVOT Mn Eb: 0.57 LVOT VTI: 0.21 LVOT Pk Grad: 3.00 LVOT Mn Grad: 2.00 LVOT Diam: 2.00 LVOT Area: 3.14 Diastolic Function MV Pk E: 0.45 MV Pk A: 0.82 E/A: 0.50 E'Medial: 3.48 E/E' Med: 12.90 E' Laterial: 2.94 E/E' Lat: 15.30 Right Ventricle TAPSE (mm): 12.30 TVS' Eb: 6.09 Tricuspid Valve TR Pk Eb: 2.66 TR Pk Grad: 28.00 RA Press: 3.00 RVSP: 31.00 Great Vessels Aorta Sinus of Valsalva: 2.73 2.0-3.5 cm Ao Asc: 3.10 2.1-3.4 cm Updated in Other Vendor System with Status of Final Maxwell Le MD electronically signed on 07/01/2024 8:37:31 AM with status of Final
== END ==
LOC: HO.CARD 12:57
PROVIDERS: PCP Physician Assistant; Visit Provider Internal Medicine Cardiovascular Disease
DX: I25.5 Ischemic cardiomyopathy (principal)
CPT/HCPCS: 93306; Q9957

== ENCOUNTER → 2024-06-30 13:08 | Outpatient (BNV) | payer MEDICARE, MEDICAID, SELFPAY | PROVIDERS: PCP Physician Assistant; Visit Provider Internal Medicine Cardiovascular Disease | DX: I25.5 Ischemic cardiomyopathy (principal); I35.8 Other nonrheumatic aortic valve disorders; I34.0 Nonrheumatic mitral (valve) insufficiency; I36.1 Nonrheumatic tricuspid (valve) insufficiency | CPT/HCPCS: 93306 ==

== ENCOUNTER 2024-07-12 12:49 | Outpatient (AMB) | payer MEDICARE, MEDICAID, SELFPAY ==
--- NOTE | 2024-07-12 13:06 | A.OFFVIS_ITS ---
Vital Signs 07/12/24 13:12 Height 4 ft 11 in Weight 107 lb BMI 21.6 BP 165/72 H Blood Pressure Location Rt brachial Position Sitting Pulse 55 Pulse Source Pulse Oximeter Pulse Oximetry (%) 98 Oxygen Delivery Method Room Air Intake Visit Reasons: Pill Count Intake Note: Luci comes in today for a pill count to oxycodone, patient should have 72 t ablets and presets with 77 tablets which she last took today 07/12/24 at 12pm. 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 Patient is supposed to have #72 pills, in her possession has #77 pills. This demonstrates a responsible attitude in regards to the medication regimen. Patient reports reasonable analgesia, with no noted side effects. She continues to report left sided low back pain radiating into her left buttock and left thigh with walking, sitting or changing positioning and most daily activities or movements. She has pending MRI of lumbar spine but has been difficulty to complete this at [facility] and [facility] due to defibrillator in place. Patient reports this will be completed at [facility] in August, but she is on their cancellation list as well. Patient denies any fever, dizziness, chest pain, abdominal or groin pain, constipation, nausea, sedation, dizziness, or urinary retention. She reports current medication regime allows her to be less symptomatic and more functional. [facility] Medical History Renal artery stenosis Heart failure with reduced ejection fraction Acute on chronic systolic (congestive) heart failure Lumbar spondylosis Ischemic cardiomyopathy COVID-19 vaccine series completed History of femoral angiogram Hiatal hernia CAD (coronary artery disease) AAA (abdominal aortic aneurysm) Hx of myocardial infarction Hypertension Peripheral vascular disease CKD (chronic kidney disease) stage 3, GFR 30-59 ml/min History of placement of internal cardiac defibrillator Cervical spondylosis Failed back syndrome, lumbar Surgical History Stented coronary artery Status post cardiac catheterization History of biliary duct stent placement 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 Sister Gynecologic cancer Social History Household Members: Family Household Members Other:: Son Housing: House Are you a primary day care teacher to a significant other at home: No Do you presently have visiting nurse or other home services: No Alcohol intake: never Patient Tobacco Use Status: Former Tobacco user Tobacco use type: Cigarette Years Smoked: 40 e-Cigarette/Vaping Use: Never Used Second Hand Smoke Exposure: No Substance Use Type: Marijuana Advance Directives Date on File: 07/06/21 service: No Current occupational status: disabled Current occupation: rt handed Cognitive needs: No Hearing needs: No Vision needs: Yes (Glasses) Review of Systems Const All systems reviewed & are unremarkable except as noted in HPI and below Physical Exam Vital Signs: Last Vital Signs Pulse 55 07/12/24 13:12 BP 165/72 H 07/12/24 13:12 Pulse Ox 98 07/12/24 13:12 Oxygen Delivery Method Room Air 07/12/24 13:12 BMI result Body Mass Index 21.6 On exam today: Appears afebrile. Alert and oriented. Mood and affect appropriate. Follows and participates in conversation appropriately. Respiratory effort is unlabored. No cough. Able to transition from sit to stand unassisted, reports imbalance on LLE due to pain. Back/Spine/Pelvis Other: Limited lumbar ROM due to pain. Lumbar extension, axial rotation and flexion reproduces moderate pain. Positive facet loading bilatearlly. Mild TTP to bilateral GTB. Cervical Spine: cervical muscular tenderness and No Cervical spine tenderness Thoracic/Lumbar Spine: thoracic and lumbar spine normal to inspection, Thoracic/lumbar spine scar(s), Lasegue's sign positive on the left and localized, pain with thoraco-lumbar ROM, paraspinal muscle tenderness, thoraco- lumbar ROM limited, No thoracic spinal tenderness, lumbar spinal tenderness at L4 and at L5 and straight leg raise positive left at 40 degrees Sacroiliac joints: on the right nontender and on the left (+Jimbo's, +Stinchfield) tender to palpation Psych Appearance: grossly normal Mental Status: mental status grossly normal Speech and movement: Normal speech and movement present and Clear speech present Affect: normal affect Attitude: cooperative Thought process: Normal thought process present Thought content: Normal thought content present, suicidality (none), no hallucinations and Depressive thoughts present Insight: Good insight present (Psych) Judgement: Good judgement present (Psych) Results Reviewed Results Reviewed: XR LUMBOSACRAL SPINE WITH OBLIQUES 04/27/23 CLINICAL INFORMATION: Postlaminectomy syndrome. COMPARISON: Radiographs dated 05/10/2019. TECHNIQUE: AP, both oblique, and lateral (neutral, flexion and extension) views of the lumbar spine. Lateral view of the lumbosacral junction. FINDINGS: There is bony demineralization. At L3-L4, there is a 4 mm anterolisthesis. There is well-maintained alignment status-post L4-L5 posterior fusion and discectomy, with intact posterior fixator rods, pedicular screws and disc spacer. No hardware failure or loosening is seen. There is no acute fracture or spondylolisthesis. No instability is seen with flexion or extension. No spondylolysis defect is seen on the oblique views. There are aortoiliac atherosclerotic calcifications. Iliac stent material is noted. IMPRESSION: 1. There is well-maintained alignment status-post L4-L5 posterior fusion and discectomies. No hardware failure or loosening is seen. 2. There is mild degenerative disc disease at L3-L4. 3. No instability is seen with flexion or extension. XR SACROILIAC JOINTS 04/27/23 CLINICAL INFORMATION: Sacrococcygeal disorders. COMPARISON: Hip radiographs dated 06/19/2021 and 11/06/2017. FINDINGS: Bones and soft tissues are normal. No fracture. Alignment is anatomic. Sacroiliac joint spaces are well-maintained without erosions or surrounding sclerosis. The acetabular joint spaces are well-maintained. The pubic symphysis is intact. Lumbar orthopedic hardware and right iliac stent material are noted. IMPRESSION: Normal sacroiliac joints. BONE DENSITOMETRY 03/22/24 Osteopenia based on the lowest T-score value of -2.3 in the total femur applying World Health Organization criteria. 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 There is no evidence of misuse, abuse or diversion at this time. [employer] reviewed. Script sent for oxycodone 5 mg QID prn with advanced date of 07/31/24. Patient has Narcan at home. Pending lumbar spine MRI to be completed at [facility]. Patient will return to the clinic to discuss results of the MRI findings when it is done and consider interventional therapy vs Neurosurgical evaluation as indicated. All questions were answered and the patient is in agreement with the plan. Follow up in 4 weeks for a pill count or sooner if needed. Medications: Refilled oxycodone Partial Fill upon patient request. 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
[2024-07-12 13:12] VITALS: BP 165/72; PULSE 55; O2SAT 98; BMI 21.6
== END 2024-07-12 13:27 | disposition home or self-care (01) ==
PROVIDERS: PCP Physician Assistant; Visit Provider Nurse Practitioner Family
DX: M96.1 Postlaminectomy syndrome, not elsewhere classified (principal); M53.3 Sacrococcygeal disorders, not elsewhere classified; M47.816 Spondylosis without myelopathy or radiculopathy, lumbar region; Z79.891 Long term (current) use of opiate analgesic; M54.16 Radiculopathy, lumbar region
CPT/HCPCS: 99214; G2211

== ENCOUNTER → 2024-07-12 12:49 | Outpatient (BNVA) | payer MEDICARE, MEDICAID, SELFPAY | PROVIDERS: PCP Physician Assistant; Visit Provider Nurse Practitioner Family | DX: M96.1 Postlaminectomy syndrome, not elsewhere classified (principal); M53.3 Sacrococcygeal disorders, not elsewhere classified; M47.26 Other spondylosis with radiculopathy, lumbar region; Z51.81 Encounter for therapeutic drug level monitoring; Z79.891 Long term (current) use of opiate analgesic | CPT/HCPCS: 99212 ==

== ENCOUNTER 2024-08-15 13:25 | Outpatient (AMB) | payer MEDICARE, MEDICAID, SELFPAY ==
--- NOTE | 2024-08-15 13:27 | MHC.OFFVIS ---
Vital Signs 08/15/24 13:33 Height 4 ft 11 in Weight 105 lb 6 oz BMI 21.3 BP 144/77 H Blood Pressure Location Rt brachial Position Sitting Pulse 60 Pulse Source Pulse Oximeter Pulse Oximetry (%) 97 Oxygen Delivery Method Room Air Intake Visit Reasons: Medication Count Intake Note: Luci comes in today for a pill count to oxycodone, patient should have 56 tablets and presents with 59 tablets which she last took today 08/15/24 at 10 am. 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 Patient is supposed to have #56 pills, in her possession has #59 pills. This demonstrates a responsible attitude in regards to the medication regimen. Patient reports reasonable analgesia, with no noted side effects. Denies any fever, dizziness, chest pain, abdominal or groin pain, constipation, nausea, sedation, dizziness, or urinary retention. She reports current medication regime allows her to be less symptomatic and more functional. [facility] Medical History Renal artery stenosis Heart failure with reduced ejection fraction Acute on chronic systolic (congestive) heart failure Lumbar spondylosis Ischemic cardiomyopathy COVID-19 vaccine series completed History of femoral angiogram Hiatal hernia CAD (coronary artery disease) AAA (abdominal aortic aneurysm) Hx of myocardial infarction Hypertension Peripheral vascular disease CKD (chronic kidney disease) stage 3, GFR 30-59 ml/min History of placement of internal cardiac defibrillator Cervical spondylosis Failed back syndrome, lumbar Surgical History Stented coronary artery Status post cardiac catheterization History of biliary duct stent placement 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 Sister Gynecologic cancer Social History Household Members: Family Household Members Other:: Son Housing: House Are you a primary child care team lead to a significant other at home: No Do you presently have visiting nurse or other home services: No Alcohol intake: never Patient Tobacco Use Status: Former Tobacco user Tobacco use type: Cigarette Years Smoked: 40 e-Cigarette/Vaping Use: Never Used Second Hand Smoke Exposure: No Substance Use Type: Marijuana Advance Directives Date on File: 07/06/21 service: No Current occupational status: disabled Current occupation: rt handed Cognitive needs: No Hearing needs: No Vision needs: Yes (Glasses) Review of Systems Const All systems reviewed & are unremarkable except as noted in HPI and below Physical Exam Vital Signs: Last Vital Signs Pulse 60 08/15/24 13:33 BP 144/77 H 08/15/24 13:33 Pulse Ox 97 08/15/24 13:33 Oxygen Delivery Method Room Air 08/15/24 13:33 BMI result Body Mass Index 21.3 On exam today: Appears afebrile. Alert and oriented. Mood and affect appropriate. Follows and participates in conversation appropriately. Respiratory effort is unlabored. No cough. Able to transition from sit to stand unassisted, reports imbalance on LLE due to pain. Back/Spine/Pelvis Other: Limited lumbar ROM due to pain. Lumbar extension, axial rotation and flexion forward reproduces moderate pain. Painful facet loading bilaterally. Cervical Spine: cervical muscular tenderness and No Cervical spine tenderness Thoracic/Lumbar Spine: pain with thoraco-lumbar ROM, paraspinal muscle tenderness, thoraco-lumbar ROM limited, No thoracic spinal tenderness and lumbar spinal tenderness at L4 and at L5 Sacroiliac joints: on the right nontender and on the left (+Jimbo's, +Stinchfield) tender to palpation Extrem General: Yes capillary refill normal, Yes no clubbing, cyanosis or edema and Yes no calf tenderness Psych Appearance: grossly normal and well kempt Mental Status: mental status grossly normal Speech and movement: Normal speech and movement present and Clear speech present Affect: normal affect Attitude: cooperative Thought process: Normal thought process present Thought content: Normal thought content present, suicidality (none), no hallucinations and Depressive thoughts present Insight: Good insight present (Psych) Judgement: Good judgement present (Psych) Results Reviewed Results Reviewed: XR LUMBOSACRAL SPINE WITH OBLIQUES 04/27/23 CLINICAL INFORMATION: Postlaminectomy syndrome. COMPARISON: Radiographs dated 05/10/2019. TECHNIQUE: AP, both oblique, and lateral (neutral, flexion and extension) views of the lumbar spine. Lateral view of the lumbosacral junction. FINDINGS: There is bony demineralization. At L3-L4, there is a 4 mm anterolisthesis. There is well-maintained alignment status-post L4-L5 posterior fusion and discectomy, with intact posterior fixator rods, pedicular screws and disc spacer. No hardware failure or loosening is seen. There is no acute fracture or spondylolisthesis. No instability is seen with flexion or extension. No spondylolysis defect is seen on the oblique views. There are aortoiliac atherosclerotic calcifications. Iliac stent material is noted. IMPRESSION: 1. There is well-maintained alignment status-post L4-L5 posterior fusion and discectomies. No hardware failure or loosening is seen. 2. There is mild degenerative disc disease at L3-L4. 3. No instability is seen with flexion or extension. XR SACROILIAC JOINTS 04/27/23 CLINICAL INFORMATION: Sacrococcygeal disorders. COMPARISON: Hip radiographs dated 06/19/2021 and 11/06/2017. FINDINGS: Bones and soft tissues are normal. No fracture. Alignment is anatomic. Sacroiliac joint spaces are well-maintained without erosions or surrounding sclerosis. The acetabular joint spaces are well-maintained. The pubic symphysis is intact. Lumbar orthopedic hardware and right iliac stent material are noted. IMPRESSION: Normal sacroiliac joints. BONE DENSITOMETRY 03/22/24 Osteopenia based on the lowest T-score value of -2.3 in the total femur applying World Health Organization criteria. 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 There is no evidence of misuse, abuse or diversion at this time. [employer] reviewed. Script sent for oxycodone 5 mg QID prn with advanced date of 08/29/24. Patient has Narcan at home. All questions were answered and the patient is in agreement with the plan. Follow up in 4 weeks for a pill count or sooner if needed. Medications: Refilled oxycodone Partial Fill upon patient request. 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
[2024-08-15 13:33] VITALS: BP 144/77; PULSE 60; O2SAT 97; BMI 21.3
== END 2024-08-15 13:49 | disposition home or self-care (01) ==
PROVIDERS: PCP Physician Assistant; Visit Provider Nurse Practitioner Family
DX: M96.1 Postlaminectomy syndrome, not elsewhere classified (principal); M53.3 Sacrococcygeal disorders, not elsewhere classified; M47.816 Spondylosis without myelopathy or radiculopathy, lumbar region; Z79.891 Long term (current) use of opiate analgesic; M54.16 Radiculopathy, lumbar region
CPT/HCPCS: 99214; G2211

== ENCOUNTER → 2024-08-15 13:25 | Outpatient (BNVA) | payer MEDICARE, MEDICAID, SELFPAY | PROVIDERS: PCP Physician Assistant; Visit Provider Nurse Practitioner Family | DX: M53.3 Sacrococcygeal disorders, not elsewhere classified (principal); M47.816 Spondylosis without myelopathy or radiculopathy, lumbar region; M54.16 Radiculopathy, lumbar region; M96.1 Postlaminectomy syndrome, not elsewhere classified; Z79.891 Long term (current) use of opiate analgesic | CPT/HCPCS: 99212 ==

== ENCOUNTER 2024-08-29 14:43 | Outpatient (AMB) | payer MEDICARE, MEDICAID, SELFPAY ==
--- NOTE | 2024-08-29 15:17 | MHC.PC.OV ---
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 Optic Technician Required: No Accompanied by: Self / Same As Patient Allergies sacubitril [From Entresto] Adverse Reaction (Severe, Verified 08/29/24 15:36) hyperkalemia valsartan [From Entresto] Adverse Reaction (Severe, Verified 08/29/24 15:36) hyperkalemia Medication List - Last Reconciled 08/29/24 by Iron Jin PA-C alendronate 70 mg PO QWEEK aspirin (Adult Low Dose Aspirin) 81 mg PO DAILY atorvastatin 80 mg PO DAILY blood pressure monitor As directed calcium carbonate (Oyster Shell Calcium) 500 mg PO DAILY 90 days diphenoxylate-atropine 2.5-0.025 mg 1 tab PO BID PRN ezetimibe 10 mg PO DAILY furosemide 20 mg PO DAILY metoprolol succinate ER 50 mg PO DAILY naloxone 4 mg/actuation (Narcan) 4 mg intranasal Q2M PRN oxycodone 5 mg PO QID PRN 30 days rivaroxaban (Xarelto) 2.5 mg PO BID Tobacco use date assessed: 02/25/24 Fall risk assessment: No Falls in past year Last assessed Fall Risk: 08/29/24 Dental Screening Dental Screen Date: 02/25/24 HPI f/u HTN / CAD HPI Details Patient is a 68-year-old female here today for a follow-up visit ? Patient has a past medical history significant for coronary artery disease, failed back syndrome, lumbar spondylosis, depression home a peripheral artery disease, carotid stenosis, hypertension. Concerns--> has noted a dry purplish skin lesions over bilateral elbows. Has used regular [id number] moisturizing lotion and cortisone 10 though has not found it effective. She otherwise reports the skin lesions are not itchy or painful. She also reports having difficulty sleeping and staying asleep throughout the night to which she has used hydroxyzine in the past though has not been effective. She is interested in a sleeping aid Coronary artery disease :? Has stent placed and since has had more energy and less chest discomforts. ? 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 She has been transition to anticoagulation therapy.? She denies any overt signs of bleeding. Advised to get fasting lipids done to evaluate her LDL .. ..Failed back syndrome:? .? Continues on [facility] Has been responsible with pill counts and urine drug screens. Recent x-rays of her lumbar spine and pelvis showing no hardware failure, SI joint normal.? She reports she continues to have pain over her left lateral hip in lower buttock area. Unable to take NSAID due to being on anticoagulation. She continues to chronic lower lumbar spine pain. She reports having increased lower lumbar spine pain that radiate down her lower leg which caused disability for quite some time. This has resolved though has a scheduled MRI. She reports that baclofen has not been helpful on reducing her pain and is willing to try an alternative muscle relaxer. Laboratory Tests 06/21/24 12:17 RBC 4.02 L Hgb 12.2 Hct 36.7 L Cholesterol 133 LDL Cholesterol, C alc 69 PFSH Medical History Renal artery stenosis Heart failure with reduced ejection fraction Acute on chronic systolic (congestive) heart failure Lumbar spondylosis Ischemic cardiomyopathy COVID-19 vaccine series completed History of femoral angiogram Hiatal hernia CAD (coronary artery disease) AAA (abdominal aortic aneurysm) Hx of myocardial infarction Hypertension Peripheral vascular disease CKD (chronic kidney disease) stage 3, GFR 30-59 ml/min History of placement of internal cardiac defibrillator Cervical spondylosis Failed back syndrome, lumbar Surgical History Stented coronary artery Status post cardiac catheterization History of biliary duct stent placement 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 Sister Gynecologic cancer Social History Household Members: Family Household Members Other:: Son Housing: House Are you a primary patient care assistant to a significant other at home: No Do you presently have visiting nurse or other home services: No Alcohol intake: never Patient Tobacco Use Status: Former Tobacco user Tobacco use type: Cigarette Years Smoked: 40 e-Cigarette/Vaping Use: Never Used Second Hand Smoke Exposure: No Substance Use Type: Marijuana Advance Directives Date on File: 07/06/21 service: No Current occupational status: disabled Current occupation: rt handed Cognitive needs: No Hearing needs: No Vision needs: Yes (Glasses) Questionnaire Thrive Questionnaire Date Thrive assessed: 02/25/24 ALLA-7 AMB Questionnaire ALLA-7 Date ALLA - 7 assessed: 02/25/24 Source: Developed by Drs. Unruly Jones, Yanna Perez, Mckay Doty and colleagues, with an educational dave from [employer]. Review of Systems Const Denies headache(s) Eyes Denies loss of vision ENT Denies vertigo, Denies dizziness, Denies headache(s) and Denies sore throat Card Denies chest pain, Denies leg edema and Denies lightheadedness Resp Denies cough, Denies hemoptysis and Denies wheezing GI Denies abdominal pain, Denies melena, Denies constipation, Denies diarrhea and Denies vomiting Denies urinary frequency, Denies dysuria and Denies urinary urgency Musc Reports back pain, Reports myalgias, Denies arthralgias, Denies joint swelling, Denies numbness and Denies tingling Neuro Denies Abnormal speech present, Denies behavioral changes, Denies vertigo, Denies dizziness, Denies headache(s), Denies loss of vision, Denies memory loss, Denies numbness and Denies tingling Psych Denies anxiety, Denies behavioral changes, Denies depression, Denies memory loss and Denies panic attacks Kalia/Lymph Denies easy bleeding and Denies easy bruising Aller/Immun Denies wheezing Physical exam (Primary Care) Vital Signs: Last Vital Signs Pulse 78 08/29/24 15:23 BP 144/70 H 08/29/24 15:23 Pulse Ox 98 08/29/24 15:23 Oxygen Delivery Method Room Air 08/29/24 15:23 BMI result Body Mass Index 21.9 Tobacco/Smoking Status: Tobacco use Status Tobacco use date assessed 02/25/24 08/29/24 15:17 Patient Tobacco Use Status Former Tobacco user 08/29/24 15:17 Tobacco use type Cigarette 08/29/24 15:17 e-Cigarette/Vaping Use Never Used 08/29/24 15:17 Thrive Assessment: Date of Thrive Assessment Date Thrive assessed 02/25/24 08/29/24 15:17 Const General: healthy appearing, no acute distress, alert and awake Nutritional Appearance: well nourished Orientation/consciousness: oriented to person, oriented to place and oriented to time HENMT Ears: TM's normal bilaterally General nose exam: Normal nasal mucous membranes and turbinates present Eyes Conjunctivae: conjunctivae normal Sclerae: sclerae normal Pupils: Equal, round and reactive pupils present Neck Neck: Yes no lymphadenopathy and Yes no JVD Thyroid: Thyroid normal Carotids: no bruits Resp Effort & Inspection: normal respiratory effort and not tachypneic Auscultation: no crackles, no rales, no rhonchi and no wheezes Cardio Rate: regular rate Rhythm: regular rhythm Heart sounds: no murmurs and normal S1 and S2 GI Palpation (GI): Soft to palpation, nontender, no hepatomegaly and no splenomegaly Auscultation: normal bowel sounds Skin General skin exam: no rashes or lesions noted and dry skin Neuro General: oriented to person, oriented to place and oriented to time Cranial nerves: Yes Equal, round and reactive pupils present Speech: No Abnormal speech present Gait exam (Neuro): Normal gait present Motor exam (neuro): no tremor noted Extrem Right upper extremity: full ROM Left upper extremity: full ROM Right lower extremity: full ROM; no edema Left lower extremity: full ROM; no edema Psych Mental Status: mental status grossly normal Speech and movement: Normal speech and movement present Affect: normal affect Attitude: cooperative Thought process: Normal thought process present Coding Level of Care Code Est Pt Level 4 (35470) Diagnoses Heart failure with reduced ejection fraction I50.20 Primary insomnia F51.01 Insomnia type: primary Plaque psoriasis L40.0 Abdominal aortic aneurysm (AAA) without rupture I71.4 Presence of rupture: without rupture MDD (major depressive disorder), recurrent episode, moderate F33.1 Lumbar radicular syndrome M54.16 Assessment & Plan Assessment & Plan (1) Heart failure with reduced ejection fraction: Code(s): I50.20 - Unspecified systolic (congestive) heart failure Category: Medical Plan: Continues to be well compensated on current med regime. Continues to follow [facility]. No overt signs of decompensation. (2) Insomnia: Code(s): G47.00 - Insomnia, unspecified Category: Medical Qualifiers: Insomnia type: primary Qualified Code(s): F51.01 - Primary insomnia Plan: Patient reports she continues to difficulty sleeping. Has tried hydroxyzine in the past though was not effective. She is willing to try trazodone before bed to help sleep. (3) Plaque psoriasis: Code(s): L40.0 - Psoriasis vulgaris Category: Medical Plan: Patient's skin manifestation concerning for plaque psoriasis. Will supply patient with a topical steroid ointment (4) AAA (abdominal aortic aneurysm): Code(s): I71.4 - Abdominal aortic aneurysm, without rupture Category: Medical Qualifiers: Presence of rupture: without rupture Qualified Code(s): I71.4 - Abdominal aortic aneurysm, without rupture Plan: Patient's abdominal aortic aneurysm has been under surveillance for quite some time now most recent measurement at 4.3 cm (5) MDD (major depressive disorder), recurrent episode, moderate: Code(s): F33.1 - Major depressive disorder, recurrent, moderate Category: Medical Plan: Patient's depression has been well managed without any particular medication. (6) Lumbar radicular syndrome: Code(s): M54.16 - Radiculopathy, lumbar region Category: Medical Plan: Patient continues to follow [place] [facility]. Continues to have chronic lower lumbar spine pain. Does have advanced arthritis particularly in her side joint. Has had injections though have not been effective. Continues on narcotic pain medication with decent relief of her pain. She is interested in trying an alternative muscle relaxer for pain as well. Orders: Orders Lipid Panel 08/29/24 I25.10 - Atherosclerotic heart disease of [place] coronary artery without angina pectoris [place]. Panel Fast 08/29/24 I25.10 - Atherosclerotic heart disease of [place] coronary artery without angina pectoris Hemoglobin A1c 08/29/24 R73.09 - Other abnormal glucose Complete Blood Count no Diff 08/29/24 I25.10 - Atherosclerotic heart disease of [place] coronary artery without angina pectoris Medications: New trazodone 50 mg PO BEDTIME 30 tabs 3RF sleep 30 days F51.01 - Primary insomnia triamcinolone acetonide 0.5% 1 appl topical DAILY 15 grams 1RF 30 days L40.0 - Psoriasis vulgaris cyclobenzaprine 10 mg PO TID PRN 90 tabs 0RF muscle spasm 30 days M53.3 - Sacrococcygeal disorders, not elsewhere classified
[2024-08-29 15:23] VITALS: BP 144/70; PULSE 78; O2SAT 98; BMI 21.9
== END 2024-08-29 16:02 | disposition home or self-care (01) ==
PROVIDERS: PCP Physician Assistant; Visit Provider Physician Assistant
DX: I50.20 Unspecified systolic (congestive) heart failure (principal); I71.40 Abdominal aortic aneurysm, without rupture, unspecified; F33.1 Major depressive disorder, recurrent, moderate; F51.01 Primary insomnia; L40.0 Psoriasis vulgaris; M54.16 Radiculopathy, lumbar region

== ENCOUNTER → 2024-08-29 14:43 | Outpatient (BNVA) | payer MEDICARE, MEDICAID, SELFPAY | PROVIDERS: PCP Physician Assistant; Visit Provider Physician Assistant | DX: I11.0 Hypertensive heart disease with heart failure (principal); I50.20 Unspecified systolic (congestive) heart failure; F51.01 Primary insomnia; L40.0 Psoriasis vulgaris; I71.40 Abdominal aortic aneurysm, without rupture, unspecified; F33.1 Major depressive disorder, recurrent, moderate; M54.16 Radiculopathy, lumbar region | CPT/HCPCS: 99212 ==

== ENCOUNTER 2024-09-12 13:28 | Outpatient (AMB) | payer MEDICARE, MEDICAID, SELFPAY ==
--- NOTE | 2024-09-12 13:29 | MHC.OFFVIS ---
Vital Signs 09/12/24 13:38 Height 4 ft 11 in Weight 107 lb 6 oz BMI 21.7 BP 181/74 H Blood Pressure Location Rt brachial Position Sitting Pulse 63 Pulse Source Pulse Oximeter Pulse Oximetry (%) 96 Oxygen Delivery Method Room Air Intake Visit Reasons: PILL COUNT Intake Note: Luci comes in today for a pill count to oxycodone, patient should have 60 tablets and presents with 63 tablets which she last today 09/12/24 at 9:30am. 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 Patient is supposed to have #60 pills, in her possession has #63 pills. This demonstrates a responsible attitude in regards to the medication regimen. Patient reports reasonable analgesia, with no noted side effects. She reports current medication regime allows her to be less symptomatic and more functional. Patient also recently started on trazadone for sleep and cyclobenzaprine for muscle spasms per her PCP. She finds this partially beneficial and well tolerated. Patient continues to endorse persistent low back pain with radiation into her left lower extremity. She is scheduled [place] [facility] [place]. Denies any fever, dizziness, chest pain, abdominal or groin pain, constipation, nausea, sedation, dizziness, or urinary retention. [facility] Medical History Renal artery stenosis Heart failure with reduced ejection fraction Acute on chronic systolic (congestive) heart failure Lumbar spondylosis Ischemic cardiomyopathy COVID-19 vaccine series completed History of femoral angiogram Hiatal hernia CAD (coronary artery disease) AAA (abdominal aortic aneurysm) Hx of myocardial infarction Hypertension Peripheral vascular disease CKD (chronic kidney disease) stage 3, GFR 30-59 ml/min History of placement of internal cardiac defibrillator Cervical spondylosis Failed back syndrome, lumbar Surgical History Stented coronary artery Status post cardiac catheterization History of biliary duct stent placement 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 Sister Gynecologic cancer Social History Household Members: Family Household Members Other:: Son Housing: House Are you a primary director day care center to a significant other at home: No Do you presently have visiting nurse or other home services: No Alcohol intake: never Patient Tobacco Use Status: Former Tobacco user Tobacco use type: Cigarette Years Smoked: 40 e-Cigarette/Vaping Use: Never Used Second Hand Smoke Exposure: No Substance Use Type: Marijuana Advance Directives Date on File: 07/06/21 service: No Current occupational status: disabled Current occupation: rt handed Cognitive needs: No Hearing needs: No Vision needs: Yes (Glasses) Review of Systems Const All systems reviewed & are unremarkable except as noted in HPI and below Physical Exam On exam today: Appears afebrile. Alert and oriented. Mood and affect appropriate. Follows and participates in conversation appropriately. Respiratory effort is unlabored. No cough. Able to transition from sit to stand unassisted, reports imbalance on LLE due to pain. Back/Spine/Pelvis Other: Limited lumbar ROM due to pain. Lumbar extension, axial rotation and flexion forward reproduces moderate pain. Painful facet loading bilaterally. Cervical Spine: loss of normal cervical lordosis, cervical muscular tenderness, pain with cervical ROM, No Cervical spine scars present, cervical spasm and No Cervical spine tenderness Thoracic/Lumbar Spine: thoracic and lumbar spine normal to inspection, Thoracic/lumbar spine scar(s), Lasegue's sign positive on the left, pain with thoraco-lumbar ROM, paraspinal muscle tenderness, thoraco-lumbar ROM limited, No thoracic spinal tenderness and lumbar spinal tenderness at L4 and at L5 Sacroiliac joints: on the right nontender and on the left (+Jimbo's, +Stinchfield) tender to palpation Extrem General: Yes capillary refill normal, Yes no clubbing, cyanosis or edema and Yes no calf tenderness Psych Appearance: grossly normal and well kempt Mental Status: mental status grossly normal Speech and movement: Normal speech and movement present and Clear speech present Affect: normal affect Attitude: cooperative Thought process: Normal thought process present Thought content: Normal thought content present, suicidality (none), no hallucinations and Depressive thoughts present Insight: Good insight present (Psych) Judgement: Good judgement present (Psych) Results Reviewed Results Reviewed: XR LUMBOSACRAL SPINE WITH OBLIQUES 04/27/23 CLINICAL INFORMATION: Postlaminectomy syndrome. COMPARISON: Radiographs dated 05/10/2019. TECHNIQUE: AP, both oblique, and lateral (neutral, flexion and extension) views of the lumbar spine. Lateral view of the lumbosacral junction. FINDINGS: There is bony demineralization. At L3-L4, there is a 4 mm anterolisthesis. There is well-maintained alignment status-post L4-L5 posterior fusion and discectomy, with intact posterior fixator rods, pedicular screws and disc spacer. No hardware failure or loosening is seen. There is no acute fracture or spondylolisthesis. No instability is seen with flexion or extension. No spondylolysis defect is seen on the oblique views. There are aortoiliac atherosclerotic calcifications. Iliac stent material is noted. IMPRESSION: 1. There is well-maintained alignment status-post L4-L5 posterior fusion and discectomies. No hardware failure or loosening is seen. 2. There is mild degenerative disc disease at L3-L4. 3. No instability is seen with flexion or extension. XR SACROILIAC JOINTS 04/27/23 CLINICAL INFORMATION: Sacrococcygeal disorders. COMPARISON: Hip radiographs dated 06/19/2021 and 11/06/2017. FINDINGS: Bones and soft tissues are normal. No fracture. Alignment is anatomic. Sacroiliac joint spaces are well-maintained without erosions or surrounding sclerosis. The acetabular joint spaces are well-maintained. The pubic symphysis is intact. Lumbar orthopedic hardware and right iliac stent material are noted. IMPRESSION: Normal sacroiliac joints. BONE DENSITOMETRY 03/22/24 Osteopenia based on the lowest T-score value of -2.3 in the total femur applying World Health Organization criteria. Assessment & Plan Assessment & Plan (1) Failed back syndrome, lumbar: Code(s): M96.1 - Postlaminectomy syndrome, not elsewhere classified Category: Medical (2) Sacroiliac joint pain: Code(s): M53.3 - Sacrococcygeal disorders, not elsewhere classified Category: Medical (3) Lumbar spondylosis: Code(s): M47.816 - Spondylosis without myelopathy or radiculopathy, lumbar region Category: Medical (4) Opioid contract exists: Code(s): Z79.891 - [facility] (current) use of opiate analgesic Category: Medical (5) Lumbar radicular syndrome: Code(s): M54.16 - Radiculopathy, lumbar region Category: Medical Plan Patient has shown accountability for her medication regimen and the pill counts were accurate. There is no evidence of misuse, abuse or diversion at this time. Mpayy reviewed. Script sent for oxycodone 5 mg QID prn with advanced date of 09/28/24. Patient has Narcan at home. Patient recently started on trazadone for sleep and cyclobenzaprine for muscle spasms by her PCP. Lumbar spine [place] [facility] Patient will return to the clinic to discuss results of the MRI? findings when it is done and consider interventional therapy as indicated. All questions were answered and the patient is in agreement with the plan. Follow up in one month for a pill count or sooner if needed. Medications: Refilled naloxone 4 mg/actuation (Narcan) spray 1 dose into ONE nostril; alternate nostrils w each dose until help arrives 4 mg intranasal Q2M PRN 2 ea 0RF opioid overdose Z79.891 - [facility] (current) use of opiate analgesic oxycodone Partial Fill upon patient request. 5 mg PO QID 30 days PRN 120 tabs 0RF pain (scale score 7-10) M47.816 - Spondylosis without myelopathy or radiculopathy, lumbar region, M96.1 - Postlaminectomy syndrome, not elsewhere classified, Z79.891 - [facility] (current) use of opiate analgesic Coding Level of Care Code Est Pt Level 4 (53823) Complex EM visit Add On G2211 Diagnoses Failed back syndrome, lumbar M96.1 Sacroiliac joint pain M53.3 Lumbar spondylosis M47.816 Opioid contract exists Z79.891 Lumbar radicular syndrome M54.16
[2024-09-12 13:38] VITALS: BP 181/74; PULSE 63; O2SAT 96; BMI 21.7
== END 2024-09-12 13:57 | disposition home or self-care (01) ==
PROVIDERS: PCP Physician Assistant; Visit Provider Nurse Practitioner Family
DX: M96.1 Postlaminectomy syndrome, not elsewhere classified (principal); M53.3 Sacrococcygeal disorders, not elsewhere classified; M47.816 Spondylosis without myelopathy or radiculopathy, lumbar region; Z79.891 Long term (current) use of opiate analgesic; M54.16 Radiculopathy, lumbar region
CPT/HCPCS: 99214; G2211

== ENCOUNTER → 2024-09-12 13:28 | Outpatient (BNVA) | payer MEDICARE, MEDICAID, SELFPAY | PROVIDERS: PCP Physician Assistant; Visit Provider Nurse Practitioner Family | DX: Z51.81 Encounter for therapeutic drug level monitoring (principal); M96.1 Postlaminectomy syndrome, not elsewhere classified; M53.3 Sacrococcygeal disorders, not elsewhere classified; M47.816 Spondylosis without myelopathy or radiculopathy, lumbar region; M54.16 Radiculopathy, lumbar region; Z79.891 Long term (current) use of opiate analgesic | CPT/HCPCS: 99212 ==

== ENCOUNTER → 2024-09-21 23:59 | Outpatient (BNV) | payer MEDICARE, MEDICAID, SELFPAY ==
--- NOTE | 2024-09-27 15:09 | A.OFFVIS_ITS ---
Intake Visit Reasons: Remote ICD check- [employer] Allergies sacubitril [From Entresto] Adverse Reaction (Severe, Verified 09/27/24 13:45) hyperkalemia valsartan [From Entresto] Adverse Reaction (Severe, Verified 09/27/24 13:45) hyperkalemia [facility] Medical History Renal artery stenosis Heart failure with reduced ejection fraction Acute on chronic systolic (congestive) heart failure Lumbar spondylosis Ischemic cardiomyopathy COVID-19 vaccine series completed History of femoral angiogram Hiatal hernia CAD (coronary artery disease) AAA (abdominal aortic aneurysm) Hx of myocardial infarction Hypertension Peripheral vascular disease CKD (chronic kidney disease) stage 3, GFR 30-59 ml/min History of placement of internal cardiac defibrillator Cervical spondylosis Failed back syndrome, lumbar Surgical History Stented coronary artery Status post cardiac catheterization History of biliary duct stent placement 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 Sister Gynecologic cancer Social History Household Members: Family Household Members Other:: Son Housing: House Are you a primary director career services to a significant other at home: No Do you presently have visiting nurse or other home services: No Alcohol intake: never Patient Tobacco Use Status: Former Tobacco user Tobacco use type: Cigarette Years Smoked: 40 e-Cigarette/Vaping Use: Never Used Second Hand Smoke Exposure: No Substance Use Type: Marijuana Advance Directives Date on File: 07/06/21 service: No Current occupational status: disabled Current occupation: rt handed Cognitive needs: No Hearing needs: No Vision needs: Yes (Glasses) Office Procedures Cardiac Device Check Cardiac Device Check Details: Remote ICD report generated 09/21/2024. ICD function is adequate 22127-Aneaor Cardiac Interrogation, implant defibrillator w/interim Procedure code (CPT) selection complete Assessment & Plan Assessment & Plan (1) History of placement of internal cardiac defibrillator: Comment: The device is a [employer] single lead AICD. Model number is [id number]. It is an MRI compatible device. Serial number is [id number]. Code(s): Z95.810 - Presence of automatic (implantable) cardiac defibrillator Category: Medical Plan: See above Coding Level of Care Code Procedure Only Diagnoses History of placement of internal cardiac defibrillator Z95.810 CPT Codes Cardiac Device Check - Cardiac Device 13: [id number] Cardiac Interrogation, implant defibrillator w/interim ([id number])
== END ==
PROVIDERS: PCP Physician Assistant; Visit Provider Internal Medicine Cardiovascular Disease
DX: Z45.02 Encounter for adjustment and management of automatic implantable cardiac defibrillator (principal)
CPT/HCPCS: 93295

== ENCOUNTER 2024-09-27 13:31 | Outpatient (AMB) | payer MEDICARE, MEDICAID, SELFPAY ==
[2024-09-27 13:42] VITALS: BMI 21.6
--- NOTE | 2024-09-27 13:42 | MHC.OFFVIS ---
Vital Signs 09/27/24 13:42 Height 4 ft 11 in Weight 107 lb BMI 21.6 Intake Visit Reasons: Inj-Left hand injection last inj 05/24/24 Intake Note: Luci 68 yr old female presents today for her follow up visit for her left thumb basal joint injection done on 05/24/[address] Wallace. States last injection only helped for 1 week. States she wants to discuss other treatment options. Allergies sacubitril [From Entresto] Adverse Reaction (Severe, Verified 09/27/24 13:45) hyperkalemia valsartan [From Entresto] Adverse Reaction (Severe, Verified 09/27/24 13:45) hyperkalemia HPI HPI Inj-Left hand injection last inj 05/24/24: Details: Luci is a 68 year old right hand dominant woman with known left basal joint OA. She presents today with increased pain and would like to discuss treatment options. She was last seen, and injected, on 05/24/24. She says her previous injection was only helpful for ~1 week, and she has had pain with daily activities since. She finds some relief from wearing her comfort cool brace. She states she takes Oxycodone for her back pain. 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 She smokes weed primarily at night for pain relief, relaxation, and to boost her appetite. [facility] Medical History Renal artery stenosis Heart failure with reduced ejection fraction Acute on chronic systolic (congestive) heart failure Lumbar spondylosis Ischemic cardiomyopathy COVID-19 vaccine series completed History of femoral angiogram Hiatal hernia CAD (coronary artery disease) AAA (abdominal aortic aneurysm) Hx of myocardial infarction Hypertension Peripheral vascular disease CKD (chronic kidney disease) stage 3, GFR 30-59 ml/min History of placement of internal cardiac defibrillator Cervical spondylosis Failed back syndrome, lumbar Surgical History Stented coronary artery Status post cardiac catheterization History of biliary duct stent placement 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 Sister Gynecologic cancer Social History Household Members: Family Household Members Other:: Son Housing: House Are you a primary care manager cna to a significant other at home: No Do you presently have visiting nurse or other home services: No Alcohol intake: never Patient Tobacco Use Status: Former Tobacco user Tobacco use type: Cigarette Years Smoked: 40 e-Cigarette/Vaping Use: Never Used Second Hand Smoke Exposure: No Substance Use Type: Marijuana Advance Directives Date on File: 07/06/21 service: No Current occupational status: disabled Current occupation: rt handed Cognitive needs: No Hearing needs: No Vision needs: Yes (Glasses) Physical Exam Vital Signs: BMI result Body Mass Index 21.6 Const General: no acute distress and alert Orientation/consciousness: patient oriented x3 Neuro General: patient oriented x3 Extrem Other: Evaluation of Left Upper Extremity: The patient is alert, oriented, and in no acute distress Neuro: Median, Ulnar, Radial nerves motor and sensory intact and sensation is normal to the tips of all digits Vascular: Cap refill brisk ROM: She can make a fist and extend all of her digits. She can oppose her thumb to all digits. She is most tender about the basal joint of the left thumb. 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 Left Basal joint arthritis, S/P repeat injections Date of Injections: 09/27/24, 05/24/24, 02/03/24, 09/23/23, 01/21/23, 07/07/22, 01/29/22 I educated her about this condition I discussed treatment options, including the possibility of surgery in the future She says her most recent injection gave her relief for only about a week, where his previous injections gave her good relief for several months After discussing these options, the patient would like to proceed with a repeat injection today I discussed activity modification, they should limit or avoid any heavy or repetitive pinching or gripping activities She should continue to wear her comfort cool brace with daily activities I ordered OT hand therapy to work on stretching, strengthening, and normalizing function Injection #1 : The risks and benefits of a steroid injection including but not limited to risk of damage to blood vessels, nerve, tendon, infection, skin bleaching, persistent or worsening pain, and failure to improve symptoms were discussed with the patient and they wish to proceed with the steroid injection. Once consent was obtained the skin over the dorsum of the Left basal joint was sterilely prepped. The joint was then injected with a combination of 1 mL of (40 mg/ml} Depo-Medrol and 1% plain Lidocaine. The patient appears to have tolerated the procedure well and with no complications. She had good early relief before leaving clinic today. She knows that they may not have another steroid injection into this joint for least 4 months. Please note that this patient has a significant cardiac condition, and evidently had a major heart attack following spine surgery. She has an implantable cardiac defibrillator in place, and is on Xarelto. She also has other medical conditions that make surgery less attractive. She says she was told that she should only have surgery if it is absolutely necessary. Recommended the use of Tylenol or Ibuprofen OTC to help with relief once the numbing medication wears off. Follow up will be in about 4 months for another injection. She will call the office if she is not needing the injection at that time. Scribed for Gina Wallace MD by Nader Staples medical scientific officer, on 09/27/24 at 2:00 PM, EST. Coding Level of Care Code Est Pt Level 3 (91937) Diagnoses Arthritis of carpometacarpal (CMC) joint of left thumb M18.12 Opioid contract exists Z79.891 CPT Codes Fracture Care - Fracture Billing Code: Fracture Billing Code ([id number])
== END 2024-09-27 14:34 | disposition home or self-care (01) ==
PROVIDERS: PCP Physician Assistant; Visit Provider Orthopaedic Surgery
DX: M18.12 Unilateral primary osteoarthritis of first carpometacarpal joint, left hand (principal); Z79.891 Long term (current) use of opiate analgesic
CPT/HCPCS: 20600; 99213

== ENCOUNTER → 2024-09-27 13:31 | Outpatient (BNVA) | payer MEDICARE, MEDICAID, SELFPAY | PROVIDERS: PCP Physician Assistant; Visit Provider Orthopaedic Surgery | DX: M18.12 Unilateral primary osteoarthritis of first carpometacarpal joint, left hand (principal); Z79.891 Long term (current) use of opiate analgesic | CPT/HCPCS: 20600; 99212; J1010; J2003 ==

== ENCOUNTER 2024-10-14 12:17 | Outpatient (AMB) | payer MEDICARE, MEDICAID, SELFPAY ==
[2024-10-14 12:15] VITALS: BMI 21.8
--- NOTE | 2024-10-14 12:17 | A.OFFVIS_ITS ---
Vital Signs 3 10/14/24 12:15 Height 4 ft 11 in Weight 108 lb BMI 21.8 Intake Visit Reasons: MRI Results Allergies sacubitril [From Entresto] Adverse Reaction (Severe, Verified 09/27/24 13:45) hyperkalemia valsartan [From Entresto] Adverse Reaction (Severe, Verified 09/27/24 13:45) hyperkalemia HPI Comments Details: Patient presents today via telehealth encounter to discuss recent lumbar spine MRI results. She continues to report significant low back pain with radiation into her lateral left leg and down into her foot with associated numbness, tingling, and weakness. MRI findings are consistent with her most recent office visit exam on 09/12/24 with positive SLR testing on the left in L5 distribution. She is interested to undergo therapeutic MANJIT to alleviate her acute on chronic radicular low back pain. Most recent bone scan as of March 2024 showed osteopenia. Back pain is function limiting and has been resistant to conservative treatments. Given significant pain, partially and temporarily relieved with opioids, patient is not able to pursue another course of physical therapy at this time. She is hesitant for any additional surgical interventions. Pain increases with daily activities, walking, and sleep. Rates at 8-9/10. Denies any recent cough, cold, infection, fever, abdominal or groin pain, bladder or bowel dysfunction, saddle anesthesia, or any significant changes in medical history since last office visit. PRIOR: Patient presents today for a pill count. Patient is supposed to have #60 pills, in her possession has #63 pills. This demonstrates a responsible attitude in regards to the medication regimen. Patient reports reasonable analgesia, with no noted side effects. She reports current medication regime allows her to be less symptomatic and more functional. Patient also recently started on trazadone for sleep and cyclobenzaprine for muscle spasms per her PCP. She finds this partially beneficial and well tolerated. Patient continues to endorse persistent low back pain with radiation into her left lower extremity. She is scheduled for lumbar spine MRI at [facility] tomorrow. Denies any fever, dizziness, chest pain, abdominal or groin pain, constipation, nausea, sedation, dizziness, or urinary retention. [facility] Medical History Renal artery stenosis Heart failure with reduced ejection fraction Acute on chronic systolic (congestive) heart failure Lumbar spondylosis Ischemic cardiomyopathy COVID-19 vaccine series completed History of femoral angiogram Hiatal hernia CAD (coronary artery disease) AAA (abdominal aortic aneurysm) Hx of myocardial infarction Hypertension Peripheral vascular disease CKD (chronic kidney disease) stage 3, GFR 30-59 ml/min History of placement of internal cardiac defibrillator Cervical spondylosis Failed back syndrome, lumbar Surgical History Stented coronary artery Status post cardiac catheterization History of biliary duct stent placement 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 Sister Gynecologic cancer Social History Household Members: Family Household Members Other:: Son Housing: House Are you a primary career education teacher to a significant other at home: No Do you presently have visiting nurse or other home services: No Alcohol intake: never Patient Tobacco Use Status: Former Tobacco user Tobacco use type: Cigarette Years Smoked: 40 e-Cigarette/Vaping Use: Never Used Second Hand Smoke Exposure: No Substance Use Type: Marijuana Advance Directives Date on File: 07/06/21 service: No Current occupational status: disabled Current occupation: rt handed Cognitive needs: No Hearing needs: No Vision needs: Yes (Glasses) Review of Systems Const All systems reviewed & are unremarkable except as noted in HPI and below ENT Reports Normal hearing present Neuro Reports Normal hearing present and Denies confusion Psych Denies confusion Physical Exam Const General: cooperative, alert and awake; No confusion Orientation/consciousness: patient oriented x3 and No confusion Resp Effort & Inspection: able to speak in complete sentences, no audible wheezes and no cough Neuro General: patient oriented x3 and No confusion Cranial nerves: Yes Normal hearing present Cognition (Neuro): normal cognition Psych Mental Status: mental status grossly normal Speech and movement: Clear speech present Affect: normal affect Attitude: cooperative Thought process: Normal thought process present Thought content: Normal thought content present and No Depressive thoughts present Insight: Good insight present (Psych) Judgement: Good judgement present (Psych) Telehealth Telehealth Telehealth Platform: Telephone Location of provider rendering services: practice address Location of patient: address on file Patient Identification confirmed using: Name, : Yes Telehealth method: voice only Patient verbally consented to treatment: Yes Patient verbally consented to billing insurance company: Yes Patient informed of any privacy concerns related to visit: Yes Minutes spent on Phone/Video with Pt.: 16 Results Reviewed Results Reviewed: XR LUMBOSACRAL SPINE WITH OBLIQUES 04/27/23 CLINICAL INFORMATION: Postlaminectomy syndrome. COMPARISON: Radiographs dated 05/10/2019. TECHNIQUE: AP, both oblique, and lateral (neutral, flexion and extension) views of the lumbar spine. Lateral view of the lumbosacral junction. FINDINGS: There is bony demineralization. At L3-L4, there is a 4 mm anterolisthesis. There is well-maintained alignment status-post L4-L5 posterior fusion and discectomy, with intact posterior fixator rods, pedicular screws and disc spacer. No hardware failure or loosening is seen. There is no acute fracture or spondylolisthesis. No instability is seen with flexion or extension. No spondylolysis defect is seen on the oblique views. There are aortoiliac atherosclerotic calcifications. Iliac stent material is noted. IMPRESSION: 1. There is well-maintained alignment status-post L4-L5 posterior fusion and discectomies. No hardware failure or loosening is seen. 2. There is mild degenerative disc disease at L3-L4. 3. No instability is seen with flexion or extension. XR SACROILIAC JOINTS 04/27/23 CLINICAL INFORMATION: Sacrococcygeal disorders. COMPARISON: Hip radiographs dated 06/19/2021 and 11/06/2017. FINDINGS: Bones and soft tissues are normal. No fracture. Alignment is anatomic. Sacroiliac joint spaces are well-maintained without erosions or surrounding sclerosis. The acetabular joint spaces are well-maintained. The pubic symphysis is intact. Lumbar orthopedic hardware and right iliac stent material are noted. IMPRESSION: Normal sacroiliac joints. BONE DENSITOMETRY 03/22/24 Osteopenia based on the lowest T-score value of -2.3 in the total femur applying World Health Organization criteria. Assessment & Plan Assessment & Plan (1) Lumbar radicular syndrome: Code(s): M54.16 - Radiculopathy, lumbar region Category: Medical (2) Failed back syndrome, lumbar: Code(s): M96.1 - Postlaminectomy syndrome, not elsewhere classified Category: Medical (3) Lumbosacral disc herniation: Code(s): M51.27 - Other intervertebral disc displacement, lumbosacral region Category: Medical (4) Lumbar spondylosis: Code(s): M47.816 - Spondylosis without myelopathy or radiculopathy, lumbar region Category: Medical Plan Lumbar spine MRI results were discussed with patient today. Her pain is consistent with MRI findings and most recent office visit exam during pill count was consistent with left sided radiculopathy. She is interested to undergo therapeutic MANJIT to alleviate her pain. Schedule Left L5 TFESI with local and fluoroscopy for left sided radiculopathy. Expectations, risks and benefits were reviewed. Patient is aware she will be contacted to schedule this procedure. Patient is aware of hyperglycemic effects of steroids. Most recent bone scan showed osteopenia. Patient on anticoagulation (Xarelto) and instructions given on when to pause with prescribing physician permission. All questions were answered and the patient is in agreement of plan. Follow-up after injections and sooner as needed. I hereby testify that I spent 16 minutes in conversation with this patient as well as with planning and coordinating care for this patient and organizing this note. Coding Level of Care Code Tele Est Pt Level 4 (34128) Complex EM visit Add On G2211 Diagnoses Lumbar radicular syndrome M54.16 Failed back syndrome, lumbar M96.1 Lumbosacral disc herniation M51.27 Lumbar spondylosis M47.816
--- OUTSIDE RECORDS SUMMARY | 2024-10-14 14:21 | XMS_ITS | Clinical Summary ---
Author Organization [employer] Address [address] [place] [address] Care Team Providers Care Open Cut Examiner Name Role Phone Unavailable Primary Care Provider Unavailabl e Social History Tobacco Use Types Packs/Day Years Used Date Smoking Tobacco: Never Assessed Comments Unknown Sex and Gender Information Value Date Recorded Sex Assigned at Female 01/05/2024 1:15 PM EDT Legal Sex Female 1:13 PM EDT Gender Identity Female 01/05/2024 1:15 PM EDT Sexual Orientation Straight 01/05/2024 1: 15 PM EDT Plan of Treatment Health Maintenance Due Date Last Done Comments CT Colonography 1954 Colonoscopy 1954 Colorectal Cancer Screening 1954 Depression Screening 1954 FIT DNA/Cologuard 1954 FIT 1954 FOBT 1954 Lipid Panel 1954 SDOH Screening 1954 Sigmoidoscopy 1954 Alcohol/Substance Use Screening 1966 Tobacco Screening 1966 Hepatitis C Screening 1972 Mammogram 1994 RSV Patients and Patients Aged 60 years or older (1 - Risk 60-74 years 1-dose series) 2014 COVID-19 Vaccine ( season) 2024 09/24/2022, 06/16/2021, 12/08/2020, Additional history exists Influenza Vaccine (#1) 2024 , 06/18/2021, 07/02/2020, Additional history exists Pneumococcal Vaccine: 65+ Years (3 of 3 - PPSV23 or PCV20) 07/02/2025 07/02/2020, 07/04/2011 DTaP/Tdap/Td Vaccines (2 - Td or Tdap) 12/30/2028 12/30/2018, 08/28/2013 Zoster Vaccines Completed 07/15/2018, 03/30/2018 HIB Vaccines Aged Out No longer eligi ble based on patient's age to complete this topic HPV Vaccines Aged Out No longer eligi ble based on patient's age to complete this topic Hepatitis A Vaccines Aged Out No long er eligible based on patient's age to complete this topic Hepatitis B Vaccines Aged Out No long er eligible based on patient's age to complete this topic IPV Vaccines Aged Out No longer eligi ble based on patient's age to complete this topic Meningococcal Vaccine Aged Out No hermila rika eligible based on patient's age to complete this topic RSV under 20 months Aged Out No longe r eligible based on patient's age to complete this topic Rotavirus Vaccines Aged Out No longer eligible based on patient's age to complete this topic Insurance [id number]
== END 2024-10-14 12:17 | disposition home or self-care (01) ==
LOC: HO.PMC 12:17
PROVIDERS: PCP Physician Assistant; Visit Provider Nurse Practitioner Family
DX: M54.16 Radiculopathy, lumbar region (principal); M96.1 Postlaminectomy syndrome, not elsewhere classified; M51.27 Other intervertebral disc displacement, lumbosacral region; M47.816 Spondylosis without myelopathy or radiculopathy, lumbar region
CPT/HCPCS: 98016

== ENCOUNTER 2024-11-10 14:20 | Outpatient (AMB) | payer MEDICARE, MEDICAID, SELFPAY ==
--- NOTE | 2024-11-10 14:33 | MHC.OFFVIS ---
Vital Signs 11/10/24 14:41 Height 4 ft 11 in Weight 108 lb BMI 21.8 BP 139/91 H Blood Pressure Location Rt brachial Position Sitting Pulse 55 Pulse Source Pulse Oximeter Pulse Oximetry (%) 97 Oxygen Delivery Method Room Air Intake Visit Reasons: Pill count Intake Note: Luci comes in today for a pill count to oxycodone, patient should have 68 tablets and presents with 70 tablets which she last took today 11/10/24 at 1:30pm. 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 Patient is supposed to have #68 pills, in her possession has #70 pills. This demonstrates a responsible attitude in regards to the medication regimen. Patient reports reasonable analgesia, with no noted side effects. She reports current medication regime allows her to be less symptomatic and more functional. Patient also takes trazadone for sleep and cyclobenzaprine for muscle spasms. She finds this partially beneficial and well tolerated. Patient continues to endorse persistent low back pain with radiation into her left lower extremity. She is scheduled for left L5 TFESI on 11/17/[address] Cole. Denies any fever, dizziness, chest pain, abdominal or groin pain, constipation, nausea, sedation, dizziness, or urinary retention. [facility], LATER [facility] Medical History Renal artery stenosis Heart failure with reduced ejection fraction Acute on chronic systolic (congestive) heart failure Lumbar spondylosis Ischemic cardiomyopathy COVID-19 vaccine series completed History of femoral angiogram Hiatal hernia CAD (coronary artery disease) AAA (abdominal aortic aneurysm) Hx of myocardial infarction Hypertension Peripheral vascular disease CKD (chronic kidney disease) stage 3, GFR 30-59 ml/min History of placement of internal cardiac defibrillator Cervical spondylosis Failed back syndrome, lumbar Surgical History Stented coronary artery Status post cardiac catheterization History of biliary duct stent placement 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 Sister Gynecologic cancer Social History Household Members: Family Household Members Other:: Son Housing: House Are you a primary child care associate to a significant other at home: No Do you presently have visiting nurse or other home services: No Alcohol intake: never Patient Tobacco Use Status: Former Tobacco user Tobacco use type: Cigarette Years Smoked: 40 e-Cigarette/Vaping Use: Never Used Second Hand Smoke Exposure: No Substance Use Type: Marijuana Advance Directives Date on File: 07/06/21 service: No Current occupational status: disabled Current occupation: rt handed Cognitive needs: No Hearing needs: No Vision needs: Yes (Glasses) Review of Systems Const All systems reviewed & are unremarkable except as noted in HPI and below Physical Exam Vital Signs: Last Vital Signs Pulse 55 11/10/24 14:41 BP 139/91 H 11/10/24 14:41 Pulse Ox 97 11/10/24 14:41 Oxygen Delivery Method Room Air 11/10/24 14:41 BMI result Body Mass Index 21.8 On exam today: Appears afebrile. Moderate distress due to back pain. Alert and oriented. Mood and affect appropriate. Follows and participates in conversation appropriately. Respiratory effort is unlabored. No cough. Able to transition from sit to stand unassisted, reports imbalance on LLE due to pain. Back/Spine/Pelvis Other: Limited lumbar ROM due to pain. Lumbar extension, axial rotation and flexion forward reproduces moderate pain. Painful facet loading bilaterally. Cervical Spine: loss of normal cervical lordosis, cervical muscular tenderness, pain with cervical ROM, No Cervical spine scars present, cervical spasm and No Cervical spine tenderness Thoracic/Lumbar Spine: thoracic and lumbar spine normal to inspection, Thoracic/lumbar spine scar(s), Lasegue's sign positive on the left, pain with thoraco-lumbar ROM, paraspinal muscle tenderness, thoraco-lumbar ROM limited, No thoracic spinal tenderness and lumbar spinal tenderness at L4 and at L5 Sacroiliac joints: on the right nontender and on the left (+Jimbo's, +Stinchfield) tender to palpation Extrem General: Yes capillary refill normal, Yes no clubbing, cyanosis or edema and Yes no calf tenderness Psych Appearance: grossly normal and well kempt Mental Status: mental status grossly normal Speech and movement: Normal speech and movement present and Clear speech present Affect: normal affect Attitude: cooperative Thought process: Normal thought process present Thought content: Normal thought content present, suicidality (none), no hallucinations and Depressive thoughts present Insight: Good insight present (Psych) Judgement: Good judgement present (Psych) Results Reviewed Results Reviewed: XR LUMBOSACRAL SPINE WITH OBLIQUES 04/27/23 CLINICAL INFORMATION: Postlaminectomy syndrome. COMPARISON: Radiographs dated 05/10/2019. TECHNIQUE: AP, both oblique, and lateral (neutral, flexion and extension) views of the lumbar spine. Lateral view of the lumbosacral junction. FINDINGS: There is bony demineralization. At L3-L4, there is a 4 mm anterolisthesis. There is well-maintained alignment status-post L4-L5 posterior fusion and discectomy, with intact posterior fixator rods, pedicular screws and disc spacer. No hardware failure or loosening is seen. There is no acute fracture or spondylolisthesis. No instability is seen with flexion or extension. No spondylolysis defect is seen on the oblique views. There are aortoiliac atherosclerotic calcifications. Iliac stent material is noted. IMPRESSION: 1. There is well-maintained alignment status-post L4-L5 posterior fusion and discectomies. No hardware failure or loosening is seen. 2. There is mild degenerative disc disease at L3-L4. 3. No instability is seen with flexion or extension. XR SACROILIAC JOINTS 04/27/23 CLINICAL INFORMATION: Sacrococcygeal disorders. COMPARISON: Hip radiographs dated 06/19/2021 and 11/06/2017. FINDINGS: Bones and soft tissues are normal. No fracture. Alignment is anatomic. Sacroiliac joint spaces are well-maintained without erosions or surrounding sclerosis. The acetabular joint spaces are well-maintained. The pubic symphysis is intact. Lumbar orthopedic hardware and right iliac stent material are noted. IMPRESSION: Normal sacroiliac joints. BONE DENSITOMETRY 03/22/24 Osteopenia based on the lowest T-score value of -2.3 in the total femur applying World Health Organization criteria. Assessment & Plan Assessment & Plan (1) Lumbar radicular syndrome: Code(s): M54.16 - Radiculopathy, lumbar region Category: Medical (2) Failed back syndrome, lumbar: Code(s): M96.1 - Postlaminectomy syndrome, not elsewhere classified Category: Medical (3) Lumbosacral disc herniation: Code(s): M51.27 - Other intervertebral disc displacement, lumbosacral region Category: Medical (4) Lumbar spondylosis: Code(s): M47.816 - Spondylosis without myelopathy or radiculopathy, lumbar region Category: Medical (5) Sacroiliac joint pain: Code(s): M53.3 - Sacrococcygeal disorders, not elsewhere classified Category: Medical (6) Opioid contract exists: Code(s): 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 There is no evidence of misuse, abuse or diversion at this time. Lamsa reviewed. Script sent for oxycodone 5 mg QID prn with advanced date of 11/25/24. Patient has Narcan at home. Patient is scheduled for Left L5 TFESI on 11/17/[address] Cole for left sided radicular back pain. All questions were answered and the patient is in agreement with the plan. Follow up in one month for a pill count/after injection or sooner if needed. Medications: Refilled oxycodone Partial Fill upon patient request. 5 mg PO QID 30 days PRN 120 tabs 0RF pain (scale score 7-10) M47.816 - Spondylosis without myelopathy or radiculopathy, lumbar region, M96.1 - Postlaminectomy syndrome, not elsewhere classified, Z79.891 - FDC (current) use of opiate analgesic Coding Level of Care Code Est Pt Level 4 (24807) Complex EM visit Add On G2211 Diagnoses Lumbar radicular syndrome M54.16 Failed back syndrome, lumbar M96.1 Lumbosacral disc herniation M51.27 Lumbar spondylosis M47.816 Sacroiliac joint pain M53.3 Opioid contract exists Z79.514
[2024-11-10 14:41] VITALS: BP 139/91; PULSE 55; O2SAT 97; BMI 21.8
== END 2024-11-10 14:47 | disposition home or self-care (01) ==
PROVIDERS: PCP Physician Assistant; Visit Provider Nurse Practitioner Family
DX: M54.16 Radiculopathy, lumbar region (principal); M96.1 Postlaminectomy syndrome, not elsewhere classified; M51.27 Other intervertebral disc displacement, lumbosacral region; Z79.891 Long term (current) use of opiate analgesic; M47.816 Spondylosis without myelopathy or radiculopathy, lumbar region; M53.3 Sacrococcygeal disorders, not elsewhere classified
CPT/HCPCS: 99214; G2211

== ENCOUNTER → 2024-11-10 14:20 | Outpatient (BNVA) | payer MEDICARE, MEDICAID, SELFPAY | PROVIDERS: PCP Physician Assistant; Visit Provider Nurse Practitioner Family | DX: Z51.81 Encounter for therapeutic drug level monitoring (principal); M54.16 Radiculopathy, lumbar region; M96.1 Postlaminectomy syndrome, not elsewhere classified; M51.27 Other intervertebral disc displacement, lumbosacral region; M47.816 Spondylosis without myelopathy or radiculopathy, lumbar region; M53.3 Sacrococcygeal disorders, not elsewhere classified; Z79.891 Long term (current) use of opiate analgesic | CPT/HCPCS: 99212 ==

== ENCOUNTER 2024-11-17 06:51 | Outpatient (REF) | payer MEDICARE, MEDICAID, SELFPAY ==
--- OUTSIDE RECORDS SUMMARY | 2024-11-17 06:54 | XMS_ITS | Clinical Summary ---
Author Organization [employer] Address [address] [place] [address] Care Team Providers Care Threat Analyst Name Role Phone Unavailable Primary Care Provider [...] 06/18/2021, 07/02/2020, Additional history exists Pneumococcal Vaccine: 50+ Years (3 of 3 - PCV20 or PCV21) 07/02/2025 07/02/2020, 07/04/2011 DTaP/Tdap/Td Vaccines (2 - [...] age to complete this topic Insurance MEDICARE [facility]
== END 2024-11-17 06:52 | disposition home or self-care (01) ==
LOC: CF 06:51
PROVIDERS: Visit Provider Internal Medicine
DX: Z13.89 Encounter for screening for other disorder (principal)

== ENCOUNTER 2024-11-17 12:30 | Observation (INO) | payer MEDICARE, MEDICAID, SELFPAY ==
--- NOTE | ~2024-11-17 | XR_ITS ---
CLINICAL HISTORY: upright cxr to assess for free air 1 view chest x-ray Comparison: CR/SR - XR CHEST 2V - 06/21/24 12:11 EDT Findings: Bibasilar atelectasis. No free air under the diaphragm. Gas in the visualized colon. Normal heart size. Aortic atherosclerosis. No acute fracture. Left subclavian ICD with lead in the right ventricle. Intact median sternotomy. IMPRESSION: No free air under the diaphragm. Gas in the visualized colon. This document has been electronically signed by: Nnamdi Escobedo MD on 11/17/2024 23:13:52
--- NOTE | ~2024-11-17 | CT_ITS ---
EXAMINATION: CT ABDOMEN AND PELVIS WITH CONTRAST CLINICAL INFORMATION: Abdominal pain, history of abdominal perforation COMPARISON: None available. TECHNIQUE: Multidetector volumetric images were obtained from the superior aspect of the liver through the pubic symphysis following administration 85 mL of Omnipaque 350 intravenous contrast. Sagittal and coronal reformatted images were obtained on the technologist's workstation. Oral contrast: No This CT examination was performed using dose optimization techniques as appropriate, variously including the following: *Automated exposure control *Adjustment of mA and/or kV according to patient size (this includes techniques or standardized protocols for targeted exams where dose is matched to indication/reason for exam; i.e. extremities or head) *Use of iterative reconstruction technique FINDINGS: LUNG BASES: There is mild emphysema with bibasilar scarring and/or atelectasis. Heart size enlarged. Solitary base electrodes in right ventricle. Median sternotomy sutures are noted. LIVER, GALLBLADDER, AND BILIARY TREE: The liver is normal in size, shape, and attenuation. No focal hepatic lesion or biliary ductal dilatation is present. The gallbladder is nondistended with a small polyp or nonradiopaque renal calculi dependent segment of the gallbladder. No wall thickening seen. PANCREAS: Unremarkable. SPLEEN: Unremarkable. ADRENAL GLANDS: Unremarkable. KIDNEYS AND URETERS: Both kidneys are lobulated with normal cortical thickness. There is mild thinning of the upper pole left kidney posterior cortex likely from old insult. No radiopaque renal calculi seen. There is nonenhancing 9 mm cyst mid pole right kidney. BLADDER: Unremarkable. GASTROINTESTINAL TRACT: The stomach is decompressed. The small bowel loops are normal caliber. There is moderate scattered stool throughout the entire colon. ABDOMINAL WALL: A tiny umbilical hernia containing fat is noted. LYMPH NODES: Normal. VASCULAR: There is a distal descending thoracic aorta aneurysm with posterior thrombus. It measures 4.0 x 4.[address] slice 9/3 and a mid abdominal aortic aneurysm circumferential thrombus measuring 4.2 x 2.7 cm. The patent lumen measures 1.6 x 2.8 cm. PELVIC VISCERA: The uterus is anteverted with scattered vascular calcifications. Few scattered diverticula suspected in the sigmoid colon. No free fluid. No abnormal pelvic or inguinal lymph nodes. OSSEOUS STRUCTURES: Grade 1 anterolisthesis L3 over L4. There are bilateral L4 and L5 pedicular screws with interconnecting rods for fusion. There is right L4 laminectomy. Mild degenerative vacuum disc phenomenon L5-S1 disc level. No aggressive lytic or sclerotic process seen. CT/CT abdomen pelvis w IV con IMPRESSION: Moderate constipation. No signs of obstruction. Small gallstone versus polyp dependent segment of gallbladder. Aneurysmal dilatation of abdominal aorta and distal descending and mid abdominal aorta. Minimal sigmoid diverticulosis. Fleischner guidelines were followed. Electronically signed by: Thor Aleman MD 11/17/2024 04:33 PM EST
--- NOTE | ~2024-11-17 | CT_ITS ---
EXAMINATION: CT ABDOMEN AND PELVIS WITH CONTRAST CLINICAL INFORMATION: Right lower quadrant pain. COMPARISON: November 17, 2024. TECHNIQUE: Multidetector volumetric images were obtained from the superior aspect of the liver through the pubic symphysis following administration 85 mL of Omnipaque 350 intravenous contrast. Sagittal and coronal reformatted images were obtained on the technologist's workstation. Oral contrast: No This CT examination was performed using dose optimization techniques as appropriate, variously including the following: *Automated exposure control *Adjustment of mA and/or kV according to patient size (this includes techniques or standardized protocols for targeted exams where dose is matched to indication/reason for exam; i.e. extremities or head) *Use of iterative reconstruction technique DLP: 280 mGy centimeter. FINDINGS: LUNG BASES: Linear and patchy pulmonary groundglass lung bases lingula and right middle lobe. Cardiomegaly. Electrode leads in the right heart chambers. Calcified plaques in the coronary arteries and thoracic aorta. There is a 2 cm crescent-shaped mixed soft tissue and calcified abnormal wall in the distal descending thoracic aorta which measures 5.4 cm.. LIVER, GALLBLADDER, AND BILIARY TREE: Liver measures 15 cm. Nodular surface. 2 mm hypodensity in the left hepatic lobe. 2 small to be fully characterized. No focal mass. Portal vein and hepatic veins and intrahepatic portion of the IVC are patent. There is contrast and likely tiny gallstones. No pericholecystic fluid collection or gallbladder wall thickening. The common bile duct measures 5 mm. PANCREAS: No focal mass. No peripancreatic fluid collection. No main pancreatic ductal dilatation. Reduced volume of the parenchyma. SPLEEN: 10 cm. No focal mass. ADRENAL GLANDS: No nodular lesions. KIDNEYS AND URETERS: Vascular calcifications in the renal hilum. No gross renal mass or hydronephrosis. Cystic lesion in the right kidney. BLADDER: Fluid-filled. GASTROINTESTINAL TRACT: Abundant stool within the large intestine. There is a thickened wall of the terminal ileum. No intestinal obstruction pattern. Scattered diverticula in the left hemicolon mostly in the sigmoid colon. The appendix is normal. No pneumatosis intestinalis. No ascites. No pneumoperitoneum. ABDOMINAL WALL: Small fat-containing umbilical hernia. LYMPH NODES: Nonspecific prominent mesenteric and retroperitoneal lymph nodes. VASCULAR: There is a 4.3 cm diameter of the infrarenal abdominal aorta with a mixed plaque. Irregular shaped mixed plaques throughout the distal abdominal aorta and iliac arteries with segmental areas of high degree stenosis. No periaortic edema pattern or IV contrast extravasation. Calcified plaques throughout the mesenteric arteries and the splenic artery the renal arteries and the iliac arteries as well as the femoral arteries. Calcified plaques in the coronary arteries. There is a questionable intraluminal attenuation in the superior mesenteric vein... PELVIC VISCERA: No gross masses in the uterus or the adnexa. OSSEOUS STRUCTURES: Status post posterior lumbar fusion with transpedicular screws through L4 and L5 and intervertebral disc spacer at L4-5 with arthrodesis. Grade 1 anterolisthesis L3-4. No acute fracture in the axial skeleton. No acute fractures in the bony pelvis or the coxofemoral joints. CT/CT abdomen pelvis w IV con IMPRESSION: Questionable nonocclusive thrombus in the superior mesenteric vein. Distal descending thoracic aorta and infrarenal abdominal aortic aneurysm with mixed plaques without rupture. Appendix is normal. Cholelithiasis. Probable hepatocellular disease. Cardiomegaly. Diverticular disease, left hemicolon. Fleischner guidelines were followed. Electronically signed by: Joel Rosales MD 11/18/2024 01:58 PM EST
[2024-11-17 13:26] VITALS: BP 180/82; PULSE 86; RESP 16; TEMP 36.9; O2SAT 98; BMI 21.2
[2024-11-17 14:04] LABS: MANUAL DIFF FLAG NO
[2024-11-17 14:15] LABS: Basophils Absolute Auto 0.1 X10*3/uL (0.0-0.2); Basophils Percent Auto 0.5 % (0-2); Eosinophils Absolute Auto 0.1 X10*3/uL (0.0-0.4); Eosinophils Percent Auto 1.1 % (0-4); Hematocrit 39.3 % (37.0-47.0); Hemoglobin 13.2 g/dl (12.0-16.0); Imm Gran Abs Auto 0.05 X10*3/uL (0.00-0.03); Imm Gran Pct Auto 0.4 % (0.0-0.4); Lymphocytes Absolute Auto 1.9 X10*3/uL (1.2-4.9); Lymphocytes Percent Auto 15.9 % (20-40); Mean Corpuscular HGB Conc 33.6 g/dl (31.0-35.0); Mean Corpuscular Hemoglobin 29.3 pg (27.0-33.0); Mean Corpuscular Volume 87.3 fL (80.0-98.0); Mean Platelet Volume 9.9 fL (9.4-12.3); Monocytes Absolute Auto 0.6 X10*3/uL (0.1-1.2); Monocytes Percent Auto 4.7 % (2-11); Neutrophils Absolute Auto 9.4 x10*3/uL (2.0-8.3); Neutrophils Percent Auto 77.4 % (45-73); Platelet Count 178 X10*3/uL (160-400); Red Cell Distribution Width 14.4 % (11.0-16.0); White Blood Count 12.1 X10*3/uL (4.8-10.8)
[2024-11-17 14:29] LABS: INTERNATIONAL NORM RATIO 0.9 (0.9-1.1); Prothrombin Time 10.9 SEC (10.9-12.4)
[2024-11-17 14:31] LABS: Alanine Aminotransferase 14 U/L (0-31); Albumin Level 4.4 g/dL (3.5-5.0); Alkaline Phosphatase 104 U/L (39-117); Anion Gap 16 (12-20); Aspartate Amino Transferase 30 U/L (5-31); Bilirubin Total 0.7 mg/dL (0.0-1.0); Blood Urea Nitrogen 12 mg/dL (9-16); Calcium 9.4 mg/dL (8.4-10.2); Carbon Dioxide 20 mmol/L (22-29); Chloride 107 mmol/L (96-108); Creatinine Clr Calc Pharmacy 40.5; Estimated Glomerular Filt Rate > 60; Glucose Random 78 mg/dL (60-115); Potassium 4.1 mmol/L (3.3-5.1); Sodium 139 mmol/L (135-145); Total Protein 8.5 g/dL (6.5-8.0)
[2024-11-17 14:33] LABS: Partial Thromboplastin Time 23.2 SEC (26.0-36.8)
--- NOTE | 2024-11-17 15:04 | ED_ITS ---
HPI - Abdominal Pain General Chief Complaint: Abdominal Pain Stated Complaint: pain in right side Time Seen by Provider: 11/17/24 14:56 Source: patient Mode of arrival: ambulatory Limitations: no limitations History of Present Illness HPI narrative: This is 69 years old patient presented to the emergency department with a chief complaint of abdominal pain since this morning. Pain is localized in the lower abdomen more in the right lower quadrant. The patient denies history of chronic back pain history of CAD she is anticoagulated with Xarelto by she has not taken for 4 days because he was supposed to have back injection MD elicited complaint: abdominal pain Pertinent past history: other (CAD chronic back pain) Onset (ago): hour(s) (8) Pain Consistency: constant Location: RLQ and LLQ Severity: moderate Quality: aching Radiation: none Migration to: no migration Exacerbating factors: nothing Related Data Home Medications ?Medication ?Instructions ?Recorded ?Confirmed aspirin 81 mg tablet,delayed 81 mg PO DAILY 02/11/22 08/29/24 release (Adult Low Dose Aspirin) Previous Rx's ?Medication ?Instructions ?Recorded blood pressure monitor #1 ea 10/01/23 furosemide 20 mg tablet 20 mg PO DAILY #90 tabs 10/08/23 alendronate 70 mg tablet 70 mg PO QWEEK #12 tabs 02/02/24 diphenoxylate-atropine 2.5 1 tab PO BID PRN diarrhea #60 tabs 05/04/24 mg-0.025 mg tablet atorvastatin 80 mg tablet 80 mg PO DAILY #90 caps 07/29/24 calcium carbonate (Oyster Shell 500 mg PO DAILY 90 days #90 tabs 07/29/24 Calcium) ezetimibe 10 mg tablet 10 mg PO DAILY #90 tabs 07/29/24 metoprolol succinate 50 mg 50 mg PO DAILY #90 tabs 07/29/24 tablet,extended release 24 hr cyclobenzaprine 10 mg tablet 10 mg PO TID PRN muscle spasm 30 08/29/24 days #90 tabs trazodone 50 mg tablet 50 mg PO BEDTIME sleep 30 days #30 08/29/24 tabs triamcinolone acetonide 0.5 % 1 appl topical DAILY 30 days #15 08/29/24 topical ointment grams naloxone 4 mg/actuation nasal 4 mg intranasal Q2M PRN opioid 09/12/24 spray (Narcan) overdose #2 ea oxycodone 5 mg tablet 5 mg PO QID PRN pain (scale score 11/10/24 7-10) 30 days #120 tabs rivaroxaban 2.5 mg tablet (Xarelto) 2.5 mg PO BID #60 tabs 11/11/24 Allergies Allergy/AdvReac Type Severity Reaction Status Date / Time sacubitril [From Entresto] AdvReac Severe hyperkalemi Verified 11/17/24 13:31 a valsartan [From Entresto] AdvReac Severe hyperkalemi Verified 11/17/24 13:31 a Review of Systems Constitutional: Reports no additional constitutional complaints Reports system reviewed and no additional complaints, except as documented Cardiovascular: Reports no additional cardiovascular complaints [facility] Past Medical History [facility] Narrative: CAD/chronic back pain Medical History Renal artery stenosis Heart failure with reduced ejection fraction Acute on chronic systolic (congestive) heart failure Lumbar spondylosis Ischemic cardiomyopathy COVID-19 vaccine series completed History of femoral angiogram Hiatal hernia CAD (coronary artery disease) AAA (abdominal aortic aneurysm) Hx of myocardial infarction Hypertension Peripheral vascular disease CKD (chronic kidney disease) stage 3, GFR 30-59 ml/min History of placement of internal cardiac defibrillator Cervical spondylosis Failed back syndrome, lumbar Surgical History Stented coronary artery Status post cardiac catheterization History of biliary duct stent placement 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 Sister Gynecologic cancer Social History Social History Household Members: Family Household Members Other:: Son Housing: House Are you a primary physician primary care sports medicine to a significant other at home: No Do you presently have visiting nurse or other home services: No Alcohol intake: never Patient Tobacco Use Status: Former Tobacco user Tobacco use type: Cigarette Years Smoked: 40 Smoked in Last 30 Days: No e-Cigarette/Vaping Use: Never Used Second Hand Smoke Exposure: No Substance Use Type: Marijuana Advance Directives: Yes Advance Directives Information Provided: Yes Advance Directives on File: No Advance Directives Date on File: 07/06/21 service: No Current occupational status: disabled Current occupation: rt handed Cognitive needs: No Hearing needs: No Vision needs: Yes (Glasses) Physical Exam ED Vital Signs: Vital Signs - 24 hr 11/17/24 13:26 11/17/24 16:26 Temperature 98.4 F Pulse Rate 86 81 Respiratory Rate 16 18 Blood Pressure 180/82 H 160/61 H Pulse Oximetry 98 99 Oxygen Delivery Method Room Air Room Air BMI result Body Mass Index 21.2 Const Other: No acute distress General: cooperative Nutritional Appearance: average body habitus Orientation/consciousness: patient oriented x3 Limitations: no limitations HENMT Head: Yes normal to inspection Ears: hearing grossly normal bilaterally Face and sinus: Yes normal facial exam Mouth: Normal oral and palatal mucosa present Throat: Yes posterior oropharynx normal Neck Neck: Yes normal visual inspection and Yes full ROM Chest Chest palpation & inspection: normal inspection of the chest Resp Effort & Inspection: normal respiratory effort Cardio Jugular venous distension: no JVD Rate: regular rate Rhythm: regular rhythm GI Other: Tenderness no distention Palpation (GI): Soft to palpation Skin General skin exam: no rashes or lesions noted, elasticity normal and turgor normal Lesions: no lesions Rashes: no rashes Neuro General: patient oriented x3 Procedures EJ/Peripheral Line Arm R: Time Out Performed: Yes Skin Cleansed in Sterile Fashion: Yes Size (gauge): 20 IV Secured and Dressing Applied: Yes Patient Tolerated Procedure: well Additional Comments: Under US guided cannulated rt brachial vein with 20 G long catheter 1 inch and 3/4 flushed well Course Reevaluation(s) Reevaluation #1: IV established under ultrasound-guided 1 in and 3/4 20 gauge Time: 15:24 Reevaluation #2: CT resulted patient as a chronic aneurysm which is known, I reviewed the scan with Dr. Mann Surgery this is not the reason for the pain lactic pending Signed off to Dr Lemons Reevaluation #3: Off shift now signed out to Dr Jett Time: 17:03 Medical Decision Making Medical Decision Making MDM Narrative: Patient is here for abdominal pain we will get labs CT and reassess Differential Diagnosis Differential Diagnoses: The differential diagnosis associated with the presentation includes Diverticulitis/colitis/perforated bowel Admission/Observation Consideration of admission/observation: Escalation of care including admission/observation considered Consult Healthcare Provider Management of the patient was discussed with: Dentist/Owner DR Mann Lab Data MDM Lab Attestation statement: I reviewed the patient's lab results. 11/17/24 13:57 11/17/24 13:57 Labs: Lab Results 11/17/24 11/17/24 Range/Units 13:57 16:30 WBC 12.1 H (4.8-10.8) X10*3/uL RBC 4.50 (4.20-5.50) X10*6/uL Hgb 13.2 (12.0-16.0) g/dl Hct 39.3 (37.0-47.0) % MCV 87.3 (80.0-98.0) fL MCH 29.3 (27.0-33.0) pg MCHC 33.6 (31.0-35.0) g/dl RDW 14.4 (11.0-16.0) % Plt Count 178 (160-400) X10*3/uL MPV 9.9 (9.4-12.3) fL Immature Gran % (Auto) 0.4 (0.0-0.4) % Neut % (Auto) 77.4 H (45-73) % Lymph % (Auto) 15.9 L (20-40) % [place] % (Auto) 4.7 (2-11) % Eos % (Auto) 1.1 (0-4) % Baso % (Auto) 0.5 (0-2) % Lymph # (Auto) 1.9 (1.2-4.9) X10*3/uL [place] # (Auto) 0.6 (0.1-1.2) X10*3/uL Eos # (Auto) 0.1 (0.0-0.4) X10*3/uL Baso # (Auto) 0.1 (0.0-0.2) X10*3/uL Abs Immat Gran (auto) 0.05 H (0.00-0.03) X10*3/uL Absolute Neuts (auto) 9.4 H (2.0-8.3) x10*3/uL Absolute Nucleated RBC 0.000 (0.0-0.012) X10*3/uL Nucleated RBC % (auto) 0.0 (0.0-0.2) /100WBC PT 10.9 (10.9-12.4) SEC INR 0.9 (0.9-1.1) APTT 23.2 L (26.0-36.8) SEC Sodium 139 (135-145) mmol/L Potassium 4.1 D (3.3-5.1) mmol/L Chloride 107 (96-108) mmol/L Carbon Dioxide 20 L (22-29) mmol/L Anion Gap 16 (12-20) BUN 12 (9-16) mg/dL Creatinine 0.88 (0.5-1.4) mg/dL Estim Creat Clear Calc 40.5 Estimated GFR > 60 Random Glucose 78 (60-115) mg/dL Calcium 9.4 (8.4-10.2) mg/dL Total Bilirubin 0.7 (0.0-1.0) mg/dL AST 30 (5-31) U/L ALT 14 (0-31) U/L Alkaline Phosphatase 104 (39-117) U/L Total Protein 8.5 H (6.5-8.0) g/dL Albumin 4.4 (3.5-5.0) g/dL Urine Color Yellow Urine Appearance Clear Urine pH 6.5 (5.0-9.0) Ur Specific [place] >= 1.030 H (1.005-1.025) Urine Protein Trace (Neg-Trace) mg/dL Urine Glucose (UA) Negative (Negative) mg/dL Urine Ketones Negative (Negative) mg/dL Urine Blood Negative (Negative) Urine Nitrite Positive H (Negative) Ur Leukocyte Esterase Trace H (Negative) Urine RBC 0-2 (0-2) /HPF Urine WBC 6-10 H (0-5) /HPF Ur Squamous Epith Cells 0-2 (0-2) /HPF Urine Bacteria 4+ (None Seen) Hyaline Casts 0-2 (0-2) /LPF Independent Interpretation I performed an independent interpretation of an: CT Scan Radiology Impression Discussion of test interpretation with radiology: I have reviewed the radiologist's reading. Medications Administered Generic Name Dose Route Start Last Admin Trade Name Freq PRN Reason Stop Dose Admin Sodium Chloride 1,000 mls @ 999 mls/hr 11/17/24 16:45 11/17/24 16:43 Ns IVCONT 11/17/24 17:45 999 mls/hr .Q1H1M ANDREW Administration Discontinued Medications Generic Name Dose Route Start Last Admin Trade Name Scotq PRN Reason Stop Dose Admin Iohexol 100 ml 11/17/24 16:02 11/17/24 16:03 Iohexol 350 Mg/Ml 100 Ml Infus..Btl IV 11/17/24 16:03 85 ml ONCE ONE Administration Morphine Sulfate 4 mg 11/17/24 15:02 11/17/24 15:25 Morphine Sulfate 4 Mg/Ml Cartridge IVPUSH 11/17/24 15:03 4 mg ONCE ONE Administration Protocol Ondansetron HCl 4 mg 11/17/24 15:02 11/17/24 15:25 Ondansetron Hcl 4 Mg/2 Ml Vial IVPUSH 11/17/24 15:03 4 mg ONCE ONE Administration Discharge Plan Discharge Clinical Impression: Abdominal pain Qualifiers: Abdominal location: generalized Qualified Code(s): R10.84 - Generalized abdominal pain Patient Disposition: Still a Patient Prescriptions: No Action (DME) blood pressure monitor Kit See Rx Instructions .Route Qty: 1 0RF Rx Instructions: As directed furosemide 20 mg tablet 20 mg PO DAILY Qty: 90 2RF alendronate 70 mg tablet 70 mg PO QWEEK Qty: 12 2RF diphenoxylate-atropine 2.5-0.025 mg tablet 1 tab PO BID PRN (Reason: diarrhea) Qty: 60 0RF metoprolol succinate 50 mg tablet extended release 24 hr 50 mg PO DAILY Qty: 90 2RF atorvastatin 80 mg tablet 80 mg PO DAILY Qty: 90 2RF calcium carbonate [Oyster Shell Calcium] 500 mg calcium (1,250 mg) tablet 500 mg PO DAILY 90 Days Qty: 90 2RF ezetimibe 10 mg tablet 10 mg PO DAILY Qty: 90 3RF Xarelto 2.5 mg tablet 2.5 mg PO BID Qty: 60 11RF aspirin [Adult Low Dose Aspirin] 81 mg tablet,delayed release (DR/EC) 81 mg PO DAILY trazodone 50 mg tablet 50 mg PO BEDTIME 30 Days Qty: 30 3RF cyclobenzaprine 10 mg tablet 10 mg PO TID PRN (Reason: muscle spasm) 30 Days Qty: 90 0RF triamcinolone acetonide 0.5 % ointment 1 appl topical DAILY 30 Days Qty: 15 1RF naloxone [Narcan] 4 mg/actuation spray,non-aerosol 4 mg intranasal Q2M PRN (Reason: opioid overdose) Qty: 2 0RF Rx Instructions: spray 1 dose into ONE nostril; alternate nostrils w each dose until help arrives oxycodone 5 mg tablet 5 mg PO QID PRN (Reason: pain (scale score 7-10)) 30 Days Qty: 120 0RF Rx Instructions: Partial Fill upon patient request. Print Language: Kiswahili
[2024-11-17] MEDS: ondansetron HCL 4 MG/2 ML VIAL IVPUSH (15:25)
[2024-11-17] MEDS: Morphine Sulfate 4 MG/ML CARTRIDGE IVPUSH (15:25)
[2024-11-17] MEDS: iohexoL 350 MG/ML 100 ML INFUS..BTL IV (16:03)
[2024-11-17 16:26] VITALS: BP 160/61; PULSE 81; RESP 18; O2SAT 99
[2024-11-17 16:38] LABS: Appearance Urine Clear; Color Urine Yellow; Glucose Urine UA Negative (Negative); Leukocyte Esterase Urine Trace (Negative); Nitrite Urine Positive (Negative); PH 6.5 (5.0-9.0); Specific Gravity - Urine >= 1.030 (1.005-1.025); UMIC TRIGGER UACC YES; Urine Blood Negative (Negative); Urine Ketones Negative (Negative); Urine Protein Trace mg/dL (Neg-Trace)
[2024-11-17 16:41] LABS: Bacteria Urine 4+ (None Seen); Hyaline Casts Urine 0-2 /LPF (0-2); RBC Urine 0-2 /HPF (0-2); Squamous Epithelial Cell Urine 0-2 /HPF (0-2); UACC Culture Trigger YES
[2024-11-17] MEDS: 0.9 % Sodium Chloride 1,000 ML 999 ML IVCONT (16:43)
--- OUTSIDE RECORDS SUMMARY | 2024-11-17 17:00 | XMS_ITS | Clinical Summary ---
Author Organization [facility] [employer] [facility] Address [address] [place] [address] Care Team Providers Care Infant Toddler Lead Teacher Name Role Phone Unavailable Primary Care Provider [...] age to complete this topic Insurance MEDICARE [facility]
[2024-11-17 17:12] LABS: Lactic Acid 2.1 mmol/L (0.5-2.0)
[2024-11-17] MEDS: HYDROmorphone HCl 1 MG/ML SYRINGE IVPUSH ×2 (17:21→19:00)
--- NOTE | 2024-11-17 17:28 | ECG_ITS ---
Test Reason : ABD PAIN Blood Pressure : */* mmHG Vent. Rate : 82 BPM Atrial Rate : 82 BPM P-R Int : 122 ms QRS Dur : 94 ms QT Int : 396 ms P-R-T Axes : 69 -41 139 degrees QTcB Int : 462 ms Normal sinus rhythm Left axis deviation Minimal voltage criteria for LVH, may be normal variant ( Drake product ) Septal infarct (cited on or before 01-Jul-2011) ST & T wave abnormality, consider lateral ischemia Abnormal ECG When compared with ECG of 15-Aug-2021 09:25, Serial comparison not performed, all previous tracings are of poor data quality Referred By: Charli Rosas Electronically Signed By: Pawel Montilla
[2024-11-17 17:48] VITALS: BP 161/66; PULSE 82; RESP 14; TEMP 36.9; O2SAT 95
[2024-11-17 18:17] LABS: Troponin-I High Sensitivity 14.7 ng/L (<3.5-17.0)
[2024-11-17 18:51] LABS: Reflex Lactate? Lactic Acid Added
[2024-11-17] MEDS: 0.9 % Sodium Chloride 500 ML IV (18:59)
[2024-11-17 20:50] LABS: Troponin-I High Sensitivity 19.7 ng/L (<3.5-17.0)
[2024-11-17] MEDS: Acetaminophen 325 MG TABLET 975 MG PO (23:26)
[2024-11-17] MEDS: cefTRIAXone sodium 1 GM VIAL IVPUSH (23:26)
--- NOTE | 2024-11-17 23:32 | PC.NURSE ---
this rn assumed care of pt @ 2100 per pt does not need blood cultures prior to antibiotic administration pt medicated according to thien
[2024-11-18 00:47] VITALS: BP 134/47; PULSE 64; RESP 15; TEMP 36.7; O2SAT 95
[2024-11-18] MEDS: polyethylene glycoL 3350 17 GM POWD.PACK PO (02:45)
--- NOTE | 2024-11-18 04:00 | PC.NURSE ---
this rn made md aware of pt continued pain. per md md will assess pt at bedside
[2024-11-18 06:09] VITALS: BP 137/76; PULSE 76; RESP 15; O2SAT 96
--- NOTE | 2024-11-18 06:52 | PC.NURSE ---
pt reporting continued pain this rn made dr davey aware per md will give report to oncoming provider
[2024-11-18 07:49] LABS: Troponin-I High Sensitivity 40.9 ng/L (<3.5-17.0)
--- NOTE | 2024-11-18 07:57 | ECG_ITS ---
Test Reason : ELEVATED TROPONIN Blood Pressure : */* mmHG Vent. Rate : 59 BPM Atrial Rate : 59 BPM P-R Int : 128 ms QRS Dur : 100 ms QT Int : 476 ms P-R-T Axes : 58 -33 154 degrees QTcB Int : 471 ms Sinus bradycardia Left axis deviation Moderate voltage criteria for LVH, may be normal variant ( R in aVL , Drake product ) Septal infarct (cited on or before 01-Jul-2011) ST & T wave abnormality, consider lateral ischemia Abnormal ECG When compared with ECG of 17-Nov-2024 17:40, No significant change was found Referred By: Prabhu Hahn Electronically Signed By: Pawel Montilla
[2024-11-18] MEDS: oxyCODONE HCl Immed Release 5 MG TABLET PO ×2 (09:01→15:25)
[2024-11-18 09:19] VITALS: BP 143/51; PULSE 80; RESP 20; TEMP 36.6; O2SAT 99
[2024-11-18 10:11] LABS: MANUAL DIFF FLAG NO
[2024-11-18 10:13] LABS: Basophils Percent Auto 0.2 % (0-2); Eosinophils Absolute Auto 0.1 X10*3/uL (0.0-0.4); Eosinophils Percent Auto 0.7 % (0-4); Hematocrit 29.6 % (37.0-47.0); Imm Gran Abs Auto 0.03 X10*3/uL (0.00-0.03); Imm Gran Pct Auto 0.3 % (0.0-0.4); Lymphocytes Absolute Auto 1.2 X10*3/uL (1.2-4.9); Lymphocytes Percent Auto 11.9 % (20-40); Mean Corpuscular HGB Conc 33.8 g/dl (31.0-35.0); Mean Corpuscular Hemoglobin 29.5 pg (27.0-33.0); Mean Corpuscular Volume 87.3 fL (80.0-98.0); Monocytes Absolute Auto 0.6 X10*3/uL (0.1-1.2); Monocytes Percent Auto 5.8 % (2-11); Neutrophils Absolute Auto 7.9 x10*3/uL (2.0-8.3); Neutrophils Percent Auto 81.1 % (45-73); Platelet Count 123 X10*3/uL (160-400); Red Blood Count 3.39 X10*6/uL (4.20-5.50); Red Cell Distribution Width 14.6 % (11.0-16.0); White Blood Count 9.8 X10*3/uL (4.8-10.8)
[2024-11-18 10:28] LABS: Anion Gap 10 (12-20); Blood Urea Nitrogen 12 mg/dL (9-16); Calcium 8.9 mg/dL (8.4-10.2); Carbon Dioxide 23 mmol/L (22-29); Chloride 108 mmol/L (96-108); Creatinine Clr Calc Pharmacy 43.5; Estimated Glomerular Filt Rate > 60; Glucose Random 108 mg/dL (60-115); Potassium 3.8 mmol/L (3.3-5.1); Sodium 137 mmol/L (135-145)
[2024-11-18 10:33] LABS: B Type Natriuretic Peptide 1265 pg/mL (<100)
[2024-11-18 10:37] LABS: Troponin-I High Sensitivity 36.3 ng/L (<3.5-17.0)
[2024-11-18 11:53] LABS: Hematocrit 29.1 % (37.0-47.0); Hemoglobin 9.9 g/dl (12.0-16.0); Mean Corpuscular Hemoglobin 29.6 pg (27.0-33.0); Mean Corpuscular Volume 86.9 fL (80.0-98.0); Mean Platelet Volume 9.9 fL (9.4-12.3); Platelet Count 128 X10*3/uL (160-400); Red Blood Count 3.35 X10*6/uL (4.20-5.50); Red Cell Distribution Width 14.6 % (11.0-16.0); White Blood Count 10.5 X10*3/uL (4.8-10.8)
[2024-11-18 12:17] VITALS: BP 161/58; PULSE 60; RESP 11; TEMP 36.7; O2SAT 99
--- NOTE | 2024-11-18 12:33 | PHA.MEDREC ---
Addendum entered by Rosita Jarvis RPh 11/18/24 12:49: Reviewed by [facility] Original Note: Pharmacy Consult ? Medication Reconciliation Pharmacy has completed the medication reconciliation. Spoke with patient and she confirmed her medications. Patient confirmed she is taking the Furosemide 20mg tab still as needed for frequent urination. She confirmed the Oxycodone 5mg tab taking 1 every 6 hours as needed. She states she has not had any Xarelto 2.5mg tabs in 4 days stating she was suppose to get an Epidural yesterday but ended up in the ED. She confirmed she took everything else yesterday.
[2024-11-18] MEDS: iohexoL 350 MG/ML 100 ML INFUS..BTL IV (13:06)
[2024-11-18 14:54] LABS: Alanine Aminotransferase 8 U/L (0-31); Albumin Level 3.4 g/dL (3.5-5.0); Alkaline Phosphatase 78 U/L (39-117); Aspartate Amino Transferase 27 U/L (5-31); Bilirubin Direct 0.4 mg/dL (0.0-0.5); Bilirubin Total 0.8 mg/dL (0.0-1.0); Total Protein 6.6 g/dL (6.5-8.0)
[2024-11-18] MEDS: cefTRIAXone sodium 1 GM VIAL IVPUSH (15:26)
--- NOTE | 2024-11-18 15:30 | PC.NURSE ---
Report taken from Bailee Bejarano RN
--- NOTE | 2024-11-18 16:19 | PM.IMHP ---
History of Present Illness Date of Service: 11/18/24 Attending physician on admission: Williams Galeano Chief Complaint: RLQ abdominal pain Pt is a 69-year-old female with a PMH significant for?CAD s/p CABG, HFrEF, ischemic cardiomyopathy, [facility] AICD in place, PAD, carotid stenosis, on Xarelto, HTN, lumbar spondylosis, failed back syndrome on chronic opioids, and depression among others who presents to the ED with sudden onset RUQ abdominal pain since yesterday at 10:00. Pt describes pain as sharp and stabbing, nonradiating. Reports it feels similar to ?breathing with broken ribs? and when she had a perforated colon a few years ago. Denies nausea or vomiting. No chest pain/pressure palpitations. Denies shortness or breath or difficulty breathing. No orthopnea. Denies increased lower extremity edema. Pt denies constipation, saying she goes regularly every other day. No changes to bowel habits. In the ED pt was hypertensive up to 180/82 vitals otherwise stable and WNL. Labs were significant for H&H 10.0/29.6 (drop from 13.2/39.3 the day prior), lactic acid 2.1 with repeat 1.0, initial troponin 14.7 with repeats 19.7, 40.9, and 36.3, and CRP 11.80. No leukocytosis. No significant electrolyte abnormalities. Renal function WNL. Hepatic function WNL. BNP elevated at 1265, but in line with prior levels. UA positive for nitrites, leukocyte esterase, and 4+ bacteria. CXR showed no free air under diaphragm. CT of abdomen and pelvis showing moderate constipation without signs of obstruction, otherwise negative for acute abdomen. Repeat CT of abdomen with contrast showed questionable nonocclusive thrombus in superior mesenteric vein, 4.3 cm diameter distal descending thoracic aorta and infrarenal abdominal aortic aneurysm, as well as cholelithiasis, probable hepatocellular disease, and cardiomegaly. EKG demonstrated sinus bradycardia of 59 and T-wave inversions in lateral leads. Pt was treated with morphine, ondansetron, IVF, hydromorphone, acetaminophen, oxycodone, and ceftriaxone. Pt was initially placed in physician observation yesterday, but will be admitted to the hospital under observation for treatment and further evaluation of intractable abdominal pain of unclear etiology. Review of Systems Review of Systems: Negative except for that which is stated in the HPI. [facility] Medical History Renal artery stenosis Heart failure with reduced ejection fraction Acute on chronic systolic (congestive) heart failure Lumbar spondylosis Ischemic cardiomyopathy COVID-19 vaccine series completed History of femoral angiogram Hiatal hernia CAD (coronary artery disease) AAA (abdominal aortic aneurysm) Hx of myocardial infarction Hypertension Peripheral vascular disease CKD (chronic kidney disease) stage 3, GFR 30-59 ml/min History of placement of internal cardiac defibrillator Cervical spondylosis Failed back syndrome, lumbar Family History Father Hypertension Mother No problems noted. 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) History of lumbar fusion History of esophagogastroduodenoscopy (EGD) History of surgery Cardiac defibrillator in place S/P CABG (coronary artery bypass graft) History of open reduction and internal fixation (ORIF) procedure History of heart bypass surgery Social History Household Members: Family Household Members Other:: Son Housing: House Are you a primary daycare assistant to a significant other at home: No Do you presently have visiting nurse or other home services: No Alcohol intake: never Patient Tobacco Use Status: Former Tobacco user Tobacco use type: Cigarette Years Smoked: 40 Smoked in Last 30 Days: No e-Cigarette/Vaping Use: Never Used Second Hand Smoke Exposure: No Substance Use Type: Marijuana Advance Directives: Yes Advance Directives Information Provided: Yes Advance Directives on File: No Advance Directives Date on File: 07/06/21 service: No Current occupational status: disabled Current occupation: rt handed Cognitive needs: No Hearing needs: No Vision needs: Yes (Glasses) Meds Allergies Allergy/AdvReac Type Severity Reaction Status Date / Time sacubitril [From Entresto] AdvReac Severe hyperkalemi Verified 11/17/24 13:31 a valsartan [From Entresto] AdvReac Severe hyperkalemi Verified 11/17/24 13:31 a Home Medications ?Medication ?Instructions ?Recorded ?Confirmed ?Last Taken ?Type aspirin 81 mg tablet,delayed 81 mg PO DAILY 02/11/22 11/18/24 11/17/24 History release (Adult Low Dose Aspirin) furosemide 20 mg tablet 20 mg PO DAILY PRN Frequent 11/18/24 11/18/24 Unknown History Urination oxycodone 5 mg tablet 5 mg PO Q6H PRN pain (scale score 11/18/24 11/18/24 Unknown History 7-10) trazodone 50 mg tablet 50 mg PO BEDTIME PRN sleep 11/18/24 11/18/24 11/17/24 History triamcinolone acetonide 0.5 % 1 appl topical DAILY PRN Rash 11/18/24 11/18/24 Unknown History topical ointment Physical Exam Vital Signs and Narrative: Vital Signs: Last Vital Signs Temp 98.1 F 11/18/24 12:17 Pulse 60 11/18/24 12:17 Resp 11 L 11/18/24 12:17 BP 161/58 H 11/18/24 12:17 Pulse Ox 99 11/18/24 12:17 O2 Del Method Room Air 11/18/24 12:17 BMI result Body Mass Index 21.2 Constitutional: Alert, in no acute distress. Mental Status: Oriented to person, place and time. Eyes: Pupils are equal, round, and reactive to light. Ear, Nose, and Throat: Oropharynx clear, mucous membranes moist. Ears and nose without deformities. Trachea midline. Respiratory: Clear to auscultation bilaterally. No wheezing, rales, or rhonchi. Cardiovascular: S1, S2 regular. No murmurs, rubs, or gallops. Gastrointestinal: Abdomen soft, non-distended, with right-sided tenderness without peritoneal signs. Normal bowel sounds. Neurologic: Cranial nerves II-XII are grossly intact bilaterally. No focal neurological deficits. Moves all extremities spontaneously. Skin: Warm, dry. Extremities: No edema. Psychiatric: Normal mood and affect. Results Labs 11/18/24 11:44 11/18/24 10:07 Labs: Laboratory Results - last 24 hr 11/17/24 11/17/24 11/17/24 16:30 16:42 20:24 MCV MCH MCHC RDW Plt Count MPV Immature Gran % (Auto) Neut % (Auto) Lymph % (Auto) [place] % (Auto) Eos % (Auto) Baso % (Auto) Lymph # (Auto) [place] # (Auto) Eos # (Auto) Baso # (Auto) Abs Immat Gran (auto) Absolute Neuts (auto) Absolute Nucleated RBC Nucleated RBC % (auto) Anion Gap Estim Creat Clear Calc Estimated GFR Random Glucose Lactic Acid 2.1 H* Lactic Acid F/U @ 2Hr 1.0 Calcium Total Bilirubin Direct Bilirubin AST ALT Alkaline Phosphatase C-Reactive Protein B-Natriuretic Peptide Total Protein Albumin Urine Color Yellow Urine Appearance Clear Urine pH 6.5 Ur Specific [place] >= 1.030 H Urine Protein Trace Urine Glucose (UA) Negative Urine Ketones Negative Urine Blood Negative Urine Nitrite Positive H Ur Leukocyte Esterase Trace H Urine RBC 0-2 Urine WBC 6-10 H Ur Squamous Epith Cells 0-2 Urine Bacteria 4+ Hyaline Casts 0-2 Blood Type Antibody Screen 11/18/24 11/18/24 10:07 11:44 MCV 87.3 86.9 MCH 29.5 29.6 MCHC 33.8 34.0 RDW 14.6 14.6 Plt Count 123 L D 128 L MPV 10.0 9.9 Immature Gran % (Auto) 0.3 Neut % (Auto) 81.1 H Lymph % (Auto) 11.9 L [place] % (Auto) 5.8 Eos % (Auto) 0.7 Baso % (Auto) 0.2 Lymph # (Auto) 1.2 [place] # (Auto) 0.6 Eos # (Auto) 0.1 Baso # (Auto) 0.0 Abs Immat Gran (auto) 0.03 Absolute Neuts (auto) 7.9 Absolute Nucleated RBC 0.000 0.000 Nucleated RBC % (auto) 0.0 0.0 Anion Gap 10 L Estim Creat Clear Calc 43.5 Estimated GFR > 60 Random Glucose 108 Lactic Acid Lactic Acid F/U @ 2Hr Calcium 8.9 Total Bilirubin 0.8 Direct Bilirubin 0.4 AST 27 ALT 8 Alkaline Phosphatase 78 C-Reactive Protein 11.80 H B-Natriuretic Peptide 1265 H Total Protein 6.6 Albumin 3.4 L Urine Color Urine Appearance Urine pH Ur Specific [place] Urine Protein Urine Glucose (UA) Urine Ketones Urine Blood Urine Nitrite Ur Leukocyte Esterase Urine RBC Urine WBC Ur Squamous Epith Cells Urine Bacteria Hyaline Casts Blood Type O Positive Antibody Screen NEGATIVE Imaging Radiologist's Impressions: Impressions Abdomen/Pelvis CT 11/17/24 15:50 IMPRESSION: Moderate constipation. No signs of obstruction. Small gallstone versus polyp dependent segment of gallbladder. Aneurysmal dilatation of abdominal aorta and distal descending and mid abdominal aorta. Minimal sigmoid diverticulosis. Fleischner guidelines were followed. Electronically signed by: Thor Aleman MD 11/17/2024 04:33 PM EST RP Abdomen/Pelvis CT 11/18/24 12:39 IMPRESSION: Questionable nonocclusive thrombus in the superior mesenteric vein. Distal descending thoracic aorta and infrarenal abdominal aortic aneurysm with mixed plaques without rupture. Appendix is normal. Cholelithiasis. Probable hepatocellular disease. Cardiomegaly. Diverticular disease, left hemicolon. Fleischner guidelines were followed. 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 Pt was initially placed in physician observation yesterday, but will be admitted to the hospital under observation for treatment and further evaluation of intractable abdominal pain of unclear etiology. Intractable abdominal pain Unclear etiology: CT and repeat CT w/contrast negative for acute abdomen Denies nausea, vomiting, diarrhea Analgesics for pain management Diet as tolerated Normocytic anemia Initial H&H on 11/17 13.2/39.3 Repeat labs on 11/18 dropped to 10.0/29.6; 3rd H&H stable at 9 0.9/29.1, similar to labs in 2020 and 2021 Pt denies fatigue, lightheadedness, dizziness No hematemesis, hemoptysis, hematochezia, or melena Unclear if true drop in H&H or previous sample with hemoconcentration Follow H&H Elevated troponins Initial troponin 14.7 with repeat 19.7, 40.9 and 36.3 Pt asymptomatic, EKG without ischemic changes Likely type 2 in setting of increased demand Monitor on telemetry Acute UTI No sepsis: Leukocytosis secondary to hemoconcentration Will treat with ceftriaxone, started 11/17/2024 Follow urine cultures Acute lactic acidosis, resolved Initial lactic acid 2.1 with repeat 1.0 after IVF Secondary to hypovolemia, not sepsis Question of constipation CT showing moderate constipation Pt denies changes to bowel habits, reports going regularly every other day No indication for treatment AAA CT showing 4.2 cm abdominal aortic aneurysm and distal descending and mid abdominal aorta Follow up outpatient HFrEF BNP elevated, but pt asymptomatic and appears euvolemic Not in acute exaverbation Continue metoprolol, Lasix CAD Continue aspirin, statin, ezetimibe Chronic back pain Continue oxycodone PVD Continue Xarelto Full Code Attending:?Dr. Galeano DVT Prophylaxis: On Xarelto Pt will be admitted to the hospital under observation for treatment and further evaluation of intractable abdominal pain of unclear etiology. Quality Stroke Does the patient have a stroke diagnosis?: No VTE Prior VTE?: No VTE Risk Level:: Medical - moderate - high VTE Device Contraindication: Treatment Not Indicated VTE Drug Contraindication: N/A - Med Ordered
[2024-11-18 16:22] VITALS: BP 151/57; PULSE 63; RESP 16; TEMP 36.5; O2SAT 100
[2024-11-18 20:00] VITALS: BP 177/73; PULSE 75; RESP 20; TEMP 36.3; O2SAT 96
[2024-11-18] MEDS: HYDROmorphone HCl 0.5 MG/0.5 ML SYRINGE IVPUSH (22:25)
[2024-11-18] MEDS: traZODone HCL 50 MG TABLET PO (22:25)
[2024-11-18] MEDS: Rivaroxaban 2.5 MG TABLET PO (22:26)
[2024-11-19] VITALS: BP 120/53; PULSE 71; RESP 20; TEMP 36.5; O2SAT 94
[2024-11-19 02:47] VITALS: BP 146/64; PULSE 77; RESP 21; TEMP 36.3; O2SAT 96
[2024-11-19 08:00] VITALS: BP 111/55; PULSE 87; RESP 16; TEMP 37.3; O2SAT 95
[2024-11-19 08:07] LABS: Hematocrit 28.9 % (37.0-47.0); Mean Corpuscular HGB Conc 34.6 g/dl (31.0-35.0); Mean Corpuscular Hemoglobin 29.6 pg (27.0-33.0); Mean Corpuscular Volume 85.5 fL (80.0-98.0); Platelet Count 137 X10*3/uL (160-400); Red Blood Count 3.38 X10*6/uL (4.20-5.50); Red Cell Distribution Width 14.7 % (11.0-16.0); White Blood Count 7.4 X10*3/uL (4.8-10.8)
[2024-11-19 08:15] LABS: Anion Gap 11 (12-20); Blood Urea Nitrogen 13 mg/dL (9-16); Calcium 9.1 mg/dL (8.4-10.2); Carbon Dioxide 23 mmol/L (22-29); Chloride 108 mmol/L (96-108); Creatinine Clr Calc Pharmacy 38.8; Estimated Glomerular Filt Rate > 60; Glucose Random 101 mg/dL (60-115); Potassium 4.1 mmol/L (3.3-5.1); Sodium 138 mmol/L (135-145)
--- NOTE | 2024-11-19 09:21 | PM.DS ---
DS: Providers Provider Date of Service: 11/19/24 Date of admission: 11/18/24 17:56 Date of discharge: 11/19/24 Primary care physician: Iron Jin PA-C DS: Diagnosis Discharge Diagnosis (1) Urinary tract infection: Status: Acute (2) Abdominal pain: Status: Acute DS: Summary Hospital Course Hospital Course: from initial hpi: 69-year-old female with a PMH significant for?CAD s/p CABG, HFrEF, ischemic cardiomyopathy, [facility] AICD in place, PAD, carotid stenosis, on Xarelto, HTN, lumbar spondylosis, failed back syndrome on chronic opioids, and depression among others who presents to the ED with sudden onset RUQ abdominal pain since yesterday at 10:00. Pt describes pain as sharp and stabbing, nonradiating. Reports it feels similar to ?breathing with broken ribs? and when she had a perforated colon a few years ago. Denies nausea or vomiting. No chest pain/pressure palpitations. Denies shortness or breath or difficulty breathing. No orthopnea. Denies increased lower extremity edema. Pt denies constipation, saying she goes regularly every other day. No changes to bowel habits. In the ED pt was hypertensive up to 180/82 vitals otherwise stable and WNL. Labs were significant for H&H 10.0/29.6 (drop from 13.2/39.3 the day prior), lactic acid 2.1 with repeat 1.0, initial troponin 14.7 with repeats 19.7, 40.9, and 36.3, and CRP 11.80. No leukocytosis. No significant electrolyte abnormalities. Renal function WNL. Hepatic function WNL. BNP elevated at 1265, but in line with prior levels. UA positive for nitrites, leukocyte esterase, and 4+ bacteria. CXR showed no free air under diaphragm. CT of abdomen and pelvis showing moderate constipation without signs of obstruction, otherwise negative for acute abdomen. Repeat CT of abdomen with contrast showed questionable nonocclusive thrombus in superior mesenteric vein, 4.3 cm diameter distal descending thoracic aorta and infrarenal abdominal aortic aneurysm, as well as cholelithiasis, probable hepatocellular disease, and cardiomegaly. EKG demonstrated sinus bradycardia of 59 and T-wave inversions in lateral leads. Pt was treated with morphine, ondansetron, IVF, hydromorphone, acetaminophen, oxycodone, and ceftriaxone. Pt was initially placed in physician observation yesterday, but will be admitted to the hospital under observation for treatment and further evaluation of intractable abdominal pain of unclear etiology. hospital course: Patient was admitted for right lower quadrant abdominal pain. CT abdomen was negative for acute pathology, likely this was due to acute urinary tract infection versus constipation, urine culture grew E coli, was treated with ceftriaxone and will transitioned to Keflex. Pain improved and patient will be discharged home. For normocytic anemia hemoglobin remained stable around 10. Unclear if this was a true drop in hemoglobin versus previous number being hemoconcentrated. Can follow up outpatient and monitor for bleeding. Acute lactic acidosis was due to hypovolemia not sepsis and resolved with hydration. Noted to have mildly elevated troponin likely slight demand due to urinary tract infection hypovolemia in the setting of cardiomyopathy. No ACS. For history of AAA should continue follow up outpatient. For chronic systolic CHF status post AICD was continued on metoprolol and Lasix. For coronary artery disease was continued on aspirin, statin. For peripheral vascular disease was continued on Xarelto, aspirin, statin. For chronic back pain continued on oxycodone. Time Attestation Discharge Coordination Time (in mins): 34 Quality: Safe Use of Opioids Does Pt have an Active Cancer Diagnosis on the Problem List?: No Quality: Stroke Does the patient have a stroke diagnosis?: No Physical Exam Vital Signs: Vital Signs: Last Vital Signs Temp 99.2 F 11/19/24 08:00 Pulse 87 11/19/24 08:00 Resp 16 11/19/24 08:00 BP 111/55 L 11/19/24 08:00 Pulse Ox 95 11/19/24 08:00 O2 Del Method Room Air 11/19/24 08:00 BMI result Body Mass Index 21.2 General: AO X 3, no acute distress Resp: CTA bilateral, no accessory muscles used CVS: S1,S2,RRR GI: soft, non tender, non distended Neuro: motor grossly intact, alert Psych: appropriate affect, appropriate insight DS: Data Data Completed and Pending Completed studies during hospitalization [Text1]: Procedures Extirpation of Matter from Left External Iliac Artery, Open Approach (06/17/21) Extirpation of Matter from Left Femoral Artery, Open Approach (06/17/21) Supplement Left External Iliac Artery with Synthetic Substitute, Open Approach (06/17/21) Supplement Left Femoral Artery with Synthetic Substitute, Open Approach (06/17/21) Labs on day of discharge: Laboratory Results - last 24 hr 11/18/24 11/18/24 11/19/24 10:07 11:44 07:28 WBC 9.8 10.5 7.4 RBC 3.39 L D 3.35 L 3.38 L Hgb 10.0 L D 9.9 L 10.0 L Hct 29.6 L D 29.1 L 28.9 L MCV 87.3 86.9 85.5 MCH 29.5 29.6 29.6 MCHC 33.8 34.0 34.6 RDW 14.6 14.6 14.7 Plt Count 123 L D 128 L 137 L MPV 10.0 9.9 10.0 Immature Gran % (Auto) 0.3 Neut % (Auto) 81.1 H Lymph % (Auto) 11.9 L Pierce % (Auto) 5.8 Eos % (Auto) 0.7 Baso % (Auto) 0.2 Lymph # (Auto) 1.2 Pierce # (Auto) 0.6 Eos # (Auto) 0.1 Baso # (Auto) 0.0 Abs Immat Gran (auto) 0.03 Absolute Neuts (auto) 7.9 Absolute Nucleated RBC 0.000 0.000 0.000 Nucleated RBC % (auto) 0.0 0.0 0.0 Sodium 137 138 Potassium 3.8 4.1 Chloride 108 108 Carbon Dioxide 23 23 Anion Gap 10 L 11 L BUN 12 13 Creatinine 0.82 0.92 Estim Creat Clear Calc 43.5 38.8 Estimated GFR > 60 > 60 Random Glucose 108 101 Calcium 8.9 9.1 Total Bilirubin 0.8 Direct Bilirubin 0.4 AST 27 ALT 8 Alkaline Phosphatase 78 Troponin I High Sens 36.3 H C-Reactive Protein 11.80 H B-Natriuretic Peptide 1265 H Total Protein 6.6 Albumin 3.4 L Blood Type O Positive Antibody Screen NEGATIVE Discharge Plan Discharge Anticipated Discharge Date/Time: 11/19/24 09:19 Patient Disposition: Home, Self-Care Discharge Diagnosis: uti Referrals: Iron Jin PA-C [Primary Care Provider] - 1 Week Discharge Medications: New cephalexin 500 mg capsule 500 mg PO QID 7 Days Qty: 28 0RF Continued (DME) blood pressure monitor Kit See Rx Instructions .Route Qty: 1 0RF Rx Instructions: As directed diphenoxylate-atropine 2.5-0.025 mg tablet 1 tab PO BID PRN (Reason: diarrhea) Qty: 60 0RF metoprolol succinate 50 mg tablet extended release 24 hr 50 mg PO DAILY Qty: 90 2RF atorvastatin 80 mg tablet 80 mg PO DAILY Qty: 90 2RF calcium carbonate [Oyster Shell Calcium] 500 mg calcium (1,250 mg) tablet 500 mg PO DAILY 90 Days Qty: 90 2RF ezetimibe 10 mg tablet 10 mg PO DAILY Qty: 90 3RF Xarelto 2.5 mg tablet 2.5 mg PO BID Qty: 60 11RF triamcinolone acetonide 0.5 % ointment 1 appl topical DAILY PRN (Reason: Rash) furosemide 20 mg tablet 20 mg PO DAILY PRN (Reason: Frequent Urination) oxycodone 5 mg tablet 5 mg PO Q6H PRN (Reason: pain (scale score 7-10)) Rx Instructions: Partial Fill upon patient request. trazodone 50 mg tablet 50 mg PO BEDTIME PRN (Reason: sleep) aspirin [Adult Low Dose Aspirin] 81 mg tablet,delayed release (DR/EC) 81 mg PO DAILY cyclobenzaprine 10 mg tablet 10 mg PO TID PRN (Reason: muscle spasm) 30 Days Qty: 90 0RF Discharge Orders: Discharge Order (Routine); Ordered 11/19/24 Ordered By: Williams Galeano Diet: Advance to usual diet Activity on Discharge: As tolerated Stand Alone Forms: Patient Portal Discharge page Print Language: Romansh Care Plan Goals: Manage UTI Health Concerns: UTI Plan of Treatment: Complete Keflex course Assessment: See above
[2024-11-19] MEDS: Calcium Oyster Shell Elemental 500 MG TABLET PO (09:49)
[2024-11-19] MEDS: Metoprolol Succinate ER 50 MG TAB.ER.24H PO (09:49)
[2024-11-19] MEDS: oxyCODONE HCl Immed Release 5 MG TABLET PO (09:49)
[2024-11-19] MEDS: Atorvastatin Calcium 80 MG TABLET PO (09:49)
[2024-11-19] MEDS: Aspirin Enteric Coated 81 MG TABLET.DR PO (09:49)
[2024-11-19] MEDS: Ezetimibe 10 MG TABLET PO (09:49)
[2024-11-19] MEDS: Rivaroxaban 2.5 MG TABLET PO (09:49)
[2024-11-19] MEDS: 0.9 % Sodium Chloride Flush 3 ML SYRINGE IVFLUSH (09:50)
[2024-11-19] MEDS: Milk of Magnesia 30 ML ORAL.SUSP PO (09:56)
--- NOTE | 2024-11-19 11:06 | MHC.CM.PN ---
Addendum entered by Emelia Tsang 11/19/24 11:21: Patient is discharged today to home with resumption of [employer] services. She has arranged for transport home. Original Note: 11/19/24/UMANA Abdominal pain She lives alone. She has a Rollator, that she does not use. [employer] services [facility] [place]. DP home resume [employer] services. Pt will arrange for a family member to provide transportation home.
[2024-11-19 12:00] VITALS: BP 140/61; PULSE 60; RESP 14; TEMP 36.3; O2SAT 99
== END 2024-11-19 13:24 | disposition home or self-care (01) ==
LOC: HO.ED 11-18 15:38 → HO.EDOVER 11-18 18:02 → HO.IMC 11-18 18:58
PROVIDERS: Emergency Medicine; Physician Assistant; Student in an Organized Health Care Education/Training Program; Admitting Provider Student in an Organized Health Care Education/Training Program; Emergency Provider Emergency Medicine; PCP Physician Assistant; Visit Provider Internal Medicine
DX: N39.0 Urinary tract infection, site not specified (principal); R10.31 Right lower quadrant pain; I13.0 Hypertensive heart and chronic kidney disease with heart failure and stage 1 through stage 4 chronic kidney disease, or unspecified chronic kidney disease; N18.30 Chronic kidney disease, stage 3 unspecified; I50.20 Unspecified systolic (congestive) heart failure; I25.10 Atherosclerotic heart disease of native coronary artery without angina pectoris; Z95.1 Presence of aortocoronary bypass graft; Z95.810 Presence of automatic (implantable) cardiac defibrillator; Z79.01 Long term (current) use of anticoagulants; Z79.899 Other long term (current) drug therapy; E87.20 Acidosis, unspecified
CPT/HCPCS: 36415; 71045; 74177; 80048; 80053; 80076; 81001; 83605; 83880; 84484; 85025; 85027; 85610; 85730; 86140; 86850; 86900; 86901; 87086; 87088; 87186; 93005; 96361; 96374; 96375; 96376; 99222; 99285; J0696; J1171; J2270; J2405; Q9967

== ENCOUNTER → 2024-11-17 13:31 | Outpatient (BNV) | payer MEDICARE, MEDICAID, SELFPAY | PROVIDERS: Emergency Provider Student in an Organized Health Care Education/Training Program; PCP Physician Assistant; Visit Provider Radiology Diagnostic Radiology | DX: R10.31 Right lower quadrant pain (principal); K57.30 Diverticulosis of large intestine without perforation or abscess without bleeding; K59.00 Constipation, unspecified | CPT/HCPCS: 74177 ==

== ENCOUNTER → 2024-11-17 17:28 | Outpatient (BNV) | payer MEDICARE, MEDICAID, SELFPAY | PROVIDERS: Admitting Provider Student in an Organized Health Care Education/Training Program; Emergency Provider Emergency Medicine; PCP Physician Assistant; Visit Provider Internal Medicine Cardiovascular Disease | DX: R94.31 Abnormal electrocardiogram [ECG] [EKG] (principal) | CPT/HCPCS: 93010 ==

== ENCOUNTER → 2024-11-18 07:57 | Outpatient (BNV) | payer MEDICARE, MEDICAID, SELFPAY | PROVIDERS: Admitting Provider Student in an Organized Health Care Education/Training Program; Emergency Provider Emergency Medicine; PCP Physician Assistant; Visit Provider Internal Medicine Cardiovascular Disease | DX: R00.1 Bradycardia, unspecified (principal); R94.31 Abnormal electrocardiogram [ECG] [EKG] | CPT/HCPCS: 93010 ==

== ENCOUNTER → 2024-11-18 12:06 | Outpatient (BNV) | payer MEDICARE, MEDICAID, SELFPAY | PROVIDERS: Emergency Provider Emergency Medicine; PCP Physician Assistant; Visit Provider Radiology Diagnostic Radiology | DX: R10.31 Right lower quadrant pain (principal) | CPT/HCPCS: 74177 ==

== ENCOUNTER → 2024-11-18 17:56 | Outpatient (BNV) | payer MEDICARE, MEDICAID, SELFPAY | PROVIDERS: Admitting Provider Student in an Organized Health Care Education/Training Program; Emergency Provider Emergency Medicine; PCP Physician Assistant; Visit Provider Student in an Organized Health Care Education/Training Program | DX: N39.0 Urinary tract infection, site not specified (principal); R10.84 Generalized abdominal pain | CPT/HCPCS: 99222; 99239 ==

== ENCOUNTER 2024-11-25 12:54 | Outpatient (AMB) | payer MEDICARE, MEDICAID, SELFPAY ==
--- NOTE | 2024-11-25 12:58 | A.OFFPC_ITS ---
Vital Signs 11/25/24 13:02 Height 4 ft 11.5 in Weight 107 lb 6 oz BMI 21.3 BP 130/70 Blood Pressure Location Lt brachial Position Sitting Temp 96.9 F Temp Source Temporal Artery Scan Intake Visit Reasons: TCM [facility] ABD pain 11/19 Intake Note: Patient is here for hospital discharge and TCM follow up. Patient was discharged from [facility] [facility] on 11/19/24. Nutrition Services Manager Required: No Foundry Worker General: Not Required per policy Accompanied by: Self / Same As Patient Allergies sacubitril [From Entresto] Adverse Reaction (Severe, Verified 11/25/24 13:01) hyperkalemia valsartan [From Entresto] Adverse Reaction (Severe, Verified 11/25/24 13:01) hyperkalemia Tobacco use date assessed: 11/25/24 Fall risk assessment: No Falls in past year Last assessed Fall Risk: 11/25/24 Dental Screening Dental Screen Date: 11/25/24 Did you have a dental visit in the last 12 months?: No Did you have a dental problem in the last 6 months where you did not have access to dental care?: No Was dental information given to patient?: No (Dentures) HPI TCM TCM Information Date of Discharge 11/19/24 Discharged From [facility] Interactive Contact Date (Reference documentation from this date) 11/21/24 HPI Comments History of Present Illness Details 69 y/o female patient who presents to [facility] for TCM. 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 She was admitted at [facility] [place] [facility] on 11/18/24 - 11/19/24 due to UTI and Abdominal Pain. CT abdomen was negative for acute pathology, likely this was due to acute urinary tract infection versus constipation, urine culture grew E coli, and was treated with ceftriaxone in the hospital. [facility] Medical History Renal artery stenosis Heart failure with reduced ejection fraction Acute on chronic systolic (congestive) heart failure Lumbar spondylosis Ischemic cardiomyopathy COVID-19 vaccine series completed History of femoral angiogram Hiatal hernia CAD (coronary artery disease) AAA (abdominal aortic aneurysm) Hx of myocardial infarction Hypertension Peripheral vascular disease CKD (chronic kidney disease) stage 3, GFR 30-59 ml/min History of placement of internal cardiac defibrillator Cervical spondylosis Failed back syndrome, lumbar Surgical History Stented coronary artery Status post cardiac catheterization History of biliary duct stent placement 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 Sister Gynecologic cancer Social History Household Members: None Household Members Other:: Son Housing: Apartment Are you a primary health care specialist to a significant other at home: No Alcohol intake: never Comment: Pt independent in room with steady gait, refuses fall risk precautions. Patient Tobacco Use Status: Former Tobacco user Tobacco use type: Cigarette Cigarette Packs Per Day: 1 Cigarettes Per Day: 20.0 Years Smoked: 40 e-Cigarette/Vaping Use: Former Use Second Hand Smoke Exposure: Yes Substance Use Type: Marijuana Advance Directives Date on File: 07/06/21 service: No Current occupational status: disabled Current occupation: rt handed Cognitive needs: No Hearing needs: No Vision needs: Yes (Glasses) Questionnaire PHQ-9 Over the last 2 weeks, how often have you been bothered by any of the following problems? 1. Little interest or pleasure in doing things: not at all 2. Feeling down, depressed, or hopeless: not at all 3. Trouble falling or staying asleep, or sleeping too much: not at all 4. Feeling tired or having little energy: not at all 5. Poor appetite or overeating: not at all 6. Feeling bad about yourself - or that you are a failure or have let yourself or your family down: not at all 7. Trouble concentrating on things, such as reading the newspaper or watching television: not at all 8. Moving or speaking so slowly that other people could have noticed. Or the opposite - being so fidgety or restless that you have been moving around a lot more than usual: not at all 9. Thoughts that you would be better off or of hurting yourself in some way: not at all Total score: 0 Depression Screening Interpretation: Negative Depression Screening Done: Yes Source: Developed by Drs. Unruly Jones, Yanna Perez, Mckay Doty and colleagues, with an educational dave from [employer]. Thrive Questionnaire Date Thrive assessed: 11/19/24 I am a: Patient What is your living situation today?: I have a steady place to live Within the past 12 months, did the food you bought not last and you didn't have the money to get more?: Never true Within the past 12 months, did you worry whether your food would run out before you got money to buy more?: Never true Do you have trouble paying for medicines?: No Do you have trouble getting transportation to medical appointments?: No Do you have trouble paying your heating and electricity bill?: No Do you have trouble taking care of your child, family member or friend?: No Do you have trouble with day-to-day activities such as bathing, preparing meals, shopping, managing finances, etc.?: No Are you currently unemployed and looking for a job?: No Are you interested in more education?: No Please select the resources that you would like help with: None Currently or been in a relationship where the following occur: No concerns reported THRIVE Score: 0 AUDIT C Alcohol Use Questionnaire (AUDIT-C) 1. How often do you have a drink containing alcohol?: Never Total Score: 0 ALLA-7 AMB Questionnaire ALLA-7 Date ALLA - 7 assessed: 11/25/24 Feeling nervous, anxious, or on edge: 0 = Not at all Not being able to stop or control worryin = Not at all Worrying too much about different things: 0 = Not at all Trouble relaxin = Not at all Being so restless that it is hard to sit still: 0 = Not at all Becoming easily annoyed or irritable: 0 = Not at all Feeling afraid as if something awful might happen: 0 = Not at all Total ALLA-7 score (0-4 normal; 5-9 mild; 10-14 moderate; 15-21 severe): 0 Source: Developed by Drs. Unruly Jones, Yanna Perez, Mckay Doty and colleagues, with an educational dave from [employer]. Review of Systems Const All systems reviewed & are unremarkable except as noted in HPI and below Physical exam (Primary Care) Vital Signs: Last Vital Signs Temp 96.9 F 11/25/24 13:02 BP 130/70 11/25/24 13:02 BMI result Body Mass Index 21.3 Tobacco/Smoking Status: Tobacco use Status Tobacco use date assessed 11/25/24 11/25/24 13:06 Patient Tobacco Use Status Former Tobacco user 11/25/24 13:06 Tobacco use type Cigarette 11/25/24 13:06 e-Cigarette/Vaping Use Former Use 11/25/24 13:06 PHQ-9: PHQ-9 Score PHQ-9: Total score 0 11/25/24 13:06 Depression Screening Interpretation: Negative Thrive Assessment: Date of Thrive Assessment Date Thrive assessed 11/19/24 11/25/24 13:06 Currently or been in a relationship where the following occur: No concerns reported Const General: cooperative and no acute distress Nutritional Appearance: thin Orientation/consciousness: patient oriented x3 Resp Effort & Inspection: normal respiratory effort and able to speak in complete sentences Auscultation: clear to auscultation bilaterally Cardio Heart sounds: S1 normal heart sound present and S2 normal heart sound present General: Yes no CVA tenderness Back/Spine/Pelvis Back: no CVA tenderness Neuro General: patient oriented x3, gait normal and moves all extremities Coding Level of Care Code [facility] <= 14 Days Diagnoses Acute cystitis without hematuria N30.00 Hematuria presence: without hematuria Urinary tract infection type: acute cystitis Abdominal pain R10.84 Abdominal location: generalized Time Spent (min) 20 Assessment & Plan Assessment & Plan (1) Urinary tract infection: Code(s): N39.0 - Urinary tract infection, site not specified Category: Medical Qualifiers: Hematuria presence: without hematuria Urinary tract infection type: acute cystitis Qualified Code(s): N30.00 - Acute cystitis without hematuria Plan: Resolved (2) Abdominal pain: Code(s): R10.9 - Unspecified abdominal pain Category: Medical Qualifiers: Abdominal location: generalized Qualified Code(s): R10.84 - Generalized abdominal pain Plan: Resolved.
[2024-11-25 13:02] VITALS: BP 130/70; TEMP 36.1; BMI 21.3
--- OUTSIDE RECORDS SUMMARY | 2024-11-25 14:28 | XMS_ITS | Clinical Summary ---
Author Organization [employer] Address [address] [place] [address] Care Team Providers Care Iron Piler Name Role Phone Unavailable Primary Care Provider [...] age to complete this topic Insurance MEDICARE [facility]
== END 2024-11-25 14:23 | disposition home or self-care (01) ==
PROVIDERS: PCP Physician Assistant; Visit Provider Nurse Practitioner Family
DX: N30.00 Acute cystitis without hematuria (principal); R10.84 Generalized abdominal pain

== ENCOUNTER → 2024-11-25 12:54 | Outpatient (BNVA) | payer MEDICARE, MEDICAID, SELFPAY | PROVIDERS: PCP Physician Assistant; Visit Provider Nurse Practitioner Family | DX: N30.00 Acute cystitis without hematuria (principal); R10.84 Generalized abdominal pain | CPT/HCPCS: 99212 ==

== ENCOUNTER 2024-12-13 14:14 | Outpatient (AMB) | payer MEDICARE, MEDICAID, SELFPAY ==
--- NOTE | 2024-12-13 14:16 | MHC.OFFVIS ---
Vital Signs 12/13/24 14:17 Height 4 ft 11.5 in Weight 105 lb 13.15 oz BMI 21.0 BP 110/68 Blood Pressure Location Lt brachial Position Sitting Pulse 66 Intake Visit Reasons: 6 mth s/p echo/ AAA us/ labs w/ [facility] reggie ck Intake Note: 6 month follow-up AAA u/s and [facility] reggie check feeling good Allergies sacubitril [From Entresto] Adverse Reaction (Severe, Verified 11/25/24 13:01) hyperkalemia valsartan [From Entresto] Adverse Reaction (Severe, Verified 11/25/24 13:01) hyperkalemia Medication List - Last Reconciled 12/13/24 by Maxwell Le MD aspirin (Adult Low Dose Aspirin) 81 mg PO DAILY atorvastatin 80 mg PO DAILY blood pressure monitor As directed calcium carbonate (Oyster Shell Calcium) 500 mg PO DAILY 90 days cyclobenzaprine 10 mg PO TID PRN 30 days diphenoxylate-atropine 2.5-0.025 mg 1 tab PO BID PRN ezetimibe 10 mg PO DAILY furosemide 20 mg PO DAILY PRN metoprolol succinate ER 50 mg PO DAILY oxycodone 5 mg PO Q6H PRN rivaroxaban (Xarelto) 2.5 mg PO BID trazodone 50 mg PO BEDTIME PRN triamcinolone acetonide 0.5% 1 appl topical DAILY PRN HPI Comments Details: Luci comes for follow-up. She has not had any cardiovascular complaints. Denies any worsening exertional shortness of breath or orthopnea, PND. Takes all her medications. No leg edema, weight gain. Watches the salt in his diet. Takes all her medications. No lightheadedness, syncope. Still bothered by bilateral lower extremity discomfort and is currently being evaluated by spine with MRI and possibly undergoing therapy for the same. Although she also has prior history of vascular disease but she is waiting to see if the local therapy for spine will improve her low or extremity discomfort. No bleeding issues or neurologic events. Last LDL well optimized. [facility] Medical History Renal artery stenosis Heart failure with reduced ejection fraction Acute on chronic systolic (congestive) heart failure Lumbar spondylosis Ischemic cardiomyopathy COVID-19 vaccine series completed History of femoral angiogram Hiatal hernia CAD (coronary artery disease) AAA (abdominal aortic aneurysm) Hx of myocardial infarction Hypertension Peripheral vascular disease CKD (chronic kidney disease) stage 3, GFR 30-59 ml/min History of placement of internal cardiac defibrillator Cervical spondylosis Failed back syndrome, lumbar Surgical History Stented coronary artery Status post cardiac catheterization History of biliary duct stent placement 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 Sister Gynecologic cancer Social History Household Members: None Household Members Other:: Son Housing: Apartment Are you a primary chronic care nurse to a significant other at home: No Alcohol intake: never Comment: Pt independent in room with steady gait, refuses fall risk precautions. Patient Tobacco Use Status: Former Tobacco user Tobacco use type: Cigarette Cigarette Packs Per Day: 1 Cigarettes Per Day: 20.0 Years Smoked: 40 e-Cigarette/Vaping Use: Former Use Second Hand Smoke Exposure: Yes Substance Use Type: Marijuana Advance Directives Date on File: 07/06/21 service: No Current occupational status: disabled Current occupation: rt handed Cognitive needs: No Hearing needs: No Vision needs: Yes (Glasses) Review of Systems Const Denies chills, Denies fatigue, Denies fever(s), Denies frequent falls, Denies weakness, Denies weight gain and Denies weight loss ENT Denies dizziness Card Denies chest pain, Denies leg edema, Denies lightheadedness, Denies palpitations, Denies dyspnea, Denies dyspnea on exertion, Denies orthopnea and Denies other (loss of consciousness) Resp Denies cough, Denies dyspnea and Denies dyspnea on exertion GI Denies hematochezia and Denies change in stool character Musc Denies abnormal gait, Denies muscle weakness, Denies numbness, Denies radiating pain into limb and Denies tingling Neuro Denies abnormal gait, Denies dizziness, Denies frequent falls, Denies numbness, Denies tingling and Denies weakness Endo Denies fatigue and Denies palpitations Physical Exam Vital Signs: Last Vital Signs Pulse 66 12/13/24 14:17 BP 110/68 12/13/24 14:17 BMI result Body Mass Index 21.0 Const General: cooperative, comfortable, no acute distress, alert and awake Nutritional Appearance: thin and other (Frail elderly woman) Orientation/consciousness: patient oriented x3 Limitations: no limitations Neck Neck: Yes normal visual inspection and Yes no JVD Carotids: bruit Resp Effort & Inspection: normal respiratory effort Auscultation: clear to auscultation bilaterally, no rales, no rhonchi and no wheezes Cardio Rate: regular rate Rhythm: regular rhythm Heart sounds: S1 normal heart sound present, S2 normal heart sound present, no gallops, Murmur heart sound present systolic early and no rubs Peripheral pulses: other (Reduced pulses in the lower extremities) GI Inspection: Yes normal to inspection Skin General skin exam: no rashes or lesions noted and ecchymosis Neuro General: patient oriented x3 and no focal motor deficits Extrem Other: Right groin site with resolving ecchymosis, palpable femoral pulse noted, no bruit General: Yes normal to inspection and No no pedal edema Office Procedures Cardiac Device Check Cardiac Device Check Details: Single-chamber [facility] ICD in place for primary prevention. Programmed in VVI at 40 beats per minute. Ventricular pacing thresholds are slightly elevated and reprogrammed to provide adequate safety. Ventricular sensing is adequate. Pacing and shock lead impedance is stable. Battery life is at 3.8 years. No arrhythmias detected [id number] Cardiac Device Check, single lead implantable defibrillator Procedure code (CPT) selection complete Assessment & Plan Assessment & Plan (1) Heart failure with reduced ejection fraction: Code(s): I50.20 - Unspecified systolic (congestive) heart failure Category: Medical Plan: Heart failure with reduced ejection fraction secondary to moderately severe LV systolic dysfunction secondary to ischemic cardiomyopathy. Clinically euvolemic well compensated current diuretic dose. Management of heart failure were discussed. Daily weight monitoring avoidance salt loading was discussed additional diuretics as need be. Continue current neurohormonal modulation metoprolol. Could not tolerate other medications due to low blood pressure as well as renal insufficiency. (2) CAD (coronary artery disease): Code(s): I25.10 - Atherosclerotic heart disease of chilkoot coronary artery without angina pectoris Category: Medical Qualifiers: Coronary Disease-Associated Artery/Lesion type: chilkoot artery [place] vs. transplanted heart: chilkoot heart Associated angina: without angina Qualified Code(s): I25.10 - Atherosclerotic heart disease of chilkoot coronary artery without angina pectoris Plan: CAD with prior myocardial infarction as well as diffuse and significant vascular disease. Continue low-dose aspirin therapy and low-dose oral anticoagulation therapy. Smoking cessation. Continue aggressive blood pressure control which is currently well optimized. Continue high-intensity statin therapy along with ezetimibe therapy with well optimized LDL. Advised to call me with any new symptoms. (3) ICD (implantable cardioverter-defibrillator) in place: Code(s): Z95.810 - Presence of automatic (implantable) cardiac defibrillator Category: Medical Plan: ICD in place for primary prevention, working well. Will follow remotely for heart failure as well as for device check. Will follow up in the clinic in 7 months time after an echocardiogram. Thank you for allowing me to partake in his care Orders: Orders CA echo transthoracic complete 7 Months I50.20 - Unspecified systolic (congestive) heart failure Coding Level of Care Code Est Pt Level 4 (32104) Complex EM visit Add On G2211 Diagnoses Heart failure with reduced ejection fraction I50.20 Coronary artery disease involving chilkoot coronary artery of chilkoot heart without angina pectoris I25.10 Coronary Disease-Associated Artery/Lesion type: chilkoot artery [place] vs. transplanted heart: chilkoot heart Associated angina: without angina ICD (implantable cardioverter-defibrillator) in place Z95.810 CPT Codes Cardiac Device Check - Cardiac Device 4: [id number] Cardiac Device Check, single lead implantable defibrillator ([id number])
[2024-12-13 14:17] VITALS: BP 110/68; PULSE 66; BMI 21.0
== END 2024-12-13 14:35 | disposition home or self-care (01) ==
PROVIDERS: PCP Physician Assistant; Visit Provider Internal Medicine Cardiovascular Disease
DX: I50.20 Unspecified systolic (congestive) heart failure (principal); I25.10 Atherosclerotic heart disease of native coronary artery without angina pectoris; Z95.810 Presence of automatic (implantable) cardiac defibrillator
CPT/HCPCS: 93282; 99214; G2211

== ENCOUNTER → 2024-12-13 14:14 | Outpatient (BNVA) | payer MEDICARE, MEDICAID, SELFPAY | PROVIDERS: PCP Physician Assistant; Visit Provider Internal Medicine Cardiovascular Disease | DX: I50.20 Unspecified systolic (congestive) heart failure (principal); I25.10 Atherosclerotic heart disease of native coronary artery without angina pectoris; Z95.810 Presence of automatic (implantable) cardiac defibrillator; Z87.891 Personal history of nicotine dependence | CPT/HCPCS: 99212 ==

== ENCOUNTER 2024-12-15 12:54 | Outpatient (AMB) | payer MEDICARE, MEDICAID, SELFPAY ==
--- NOTE | 2024-12-15 12:59 | A.OFFVIS_ITS ---
Vital Signs 3 12/15/24 13:09 Height 4 ft 11.5 in Weight 103 lb 6 oz BMI 20.5 BP 151/68 H Blood Pressure Location Rt brachial Position Sitting Pulse 57 Pulse Source Pulse Oximeter Pulse Oximetry (%) 96 Oxygen Delivery Method Room Air Intake Visit Reasons: pill count Intake Note: Luci comes in today for a pill count to oxycodone, patient should have 36 tablets and presents with 42 tablets which she last took today 12/15/24 at 12pm. 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 Patient is supposed to have #36 pills, in her possession has #42 pills. This demonstrates a responsible attitude in regards to the medication regimen. Patient reports reasonable analgesia, with no noted side effects. She reports current medication regime allows her to be less symptomatic and more functional. Patient also takes trazadone for sleep and cyclobenzaprine for muscle spasms with partial relief. Patient continues to endorse significant low back pain with radiation into her left lower extremity. She was scheduled for left L5 TFESI on 11/17/[address] Cole but had to cancel it due to recent ER visit on 11/17/24 and 3-[place] hospital stay [place] [facility] pain and [place]. She denies any flank or abdominal pain since hospital stay except for initial day upon return from hospital. Denies any fever, dizziness, chest pain, shortness of breaths, constipation, nausea, sedation, dizziness, or urinary retention. [facility]MERLY [facility], [facility] Medical History Renal artery stenosis Heart failure with reduced ejection fraction Acute on chronic systolic (congestive) heart failure Lumbar spondylosis Ischemic cardiomyopathy COVID-19 vaccine series completed History of femoral angiogram Hiatal hernia CAD (coronary artery disease) AAA (abdominal aortic aneurysm) Hx of myocardial infarction Hypertension Peripheral vascular disease CKD (chronic kidney disease) stage 3, GFR 30-59 ml/min History of placement of internal cardiac defibrillator Cervical spondylosis Failed back syndrome, lumbar Surgical History Stented coronary artery Status post cardiac catheterization History of biliary duct stent placement 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 Sister Gynecologic cancer Social History Household Members: None Household Members Other:: Son Housing: Apartment Are you a primary day care home provider to a significant other at home: No Alcohol intake: never Comment: Pt independent in room with steady gait, refuses fall risk precautions. Patient Tobacco Use Status: Former Tobacco user Tobacco use type: Cigarette Cigarette Packs Per Day: 1 Cigarettes Per Day: 20.0 Years Smoked: 40 e-Cigarette/Vaping Use: Former Use Second Hand Smoke Exposure: Yes Substance Use Type: Marijuana Advance Directives Date on File: 07/06/21 service: No Current occupational status: disabled Current occupation: rt handed Cognitive needs: No Hearing needs: No Vision needs: Yes (Glasses) Review of Systems Const All systems reviewed & are unremarkable except as noted in HPI and below Physical Exam On exam today: Appears afebrile. Moderate distress due to back pain. Alert and oriented. Mood and affect appropriate. Follows and participates in conversation appropriately. Respiratory effort is unlabored. No cough. Able to transition from sit to stand unassisted, reports imbalance on LLE due to pain. GI Palpation (GI): Soft to palpation, nontender and no guarding Back/Spine/Pelvis Other: Limited lumbar ROM due to pain. Lumbar extension, axial rotation and flexion forward reproduces moderate pain. Painful facet loading bilaterally. Cervical Spine: loss of normal cervical lordosis, cervical muscular tenderness, pain with cervical ROM, No Cervical spine scars present, cervical spasm and No Cervical spine tenderness Thoracic/Lumbar Spine: thoracic and lumbar spine normal to inspection, Thoracic/lumbar spine scar(s), Lasegue's sign positive on the left, pain with thoraco-lumbar ROM, paraspinal muscle tenderness, thoraco-lumbar ROM limited, No thoracic spinal tenderness and lumbar spinal tenderness at L4 and at L5 Sacroiliac joints: on the right nontender and on the left (+Jimbo's, +Stinchfield) tender to palpation Extrem General: Yes capillary refill normal, Yes no clubbing, cyanosis or edema and Yes no calf tenderness Psych Appearance: grossly normal and well kempt Mental Status: mental status grossly normal Speech and movement: Normal speech and movement present and Clear speech present Affect: normal affect Attitude: cooperative Thought process: Normal thought process present Thought content: Normal thought content present, suicidality (none), no hallucinations and Depressive thoughts present Insight: Good insight present (Psych) Judgement: Good judgement present (Psych) Results Reviewed Results Reviewed: XR LUMBOSACRAL SPINE WITH OBLIQUES 04/27/23 CLINICAL INFORMATION: Postlaminectomy syndrome. COMPARISON: Radiographs dated 05/10/2019. TECHNIQUE: AP, both oblique, and lateral (neutral, flexion and extension) views of the lumbar spine. Lateral view of the lumbosacral junction. FINDINGS: There is bony demineralization. At L3-L4, there is a 4 mm anterolisthesis. There is well-maintained alignment status-post L4-L5 posterior fusion and discectomy, with intact posterior fixator rods, pedicular screws and disc spacer. No hardware failure or loosening is seen. There is no acute fracture or spondylolisthesis. No instability is seen with flexion or extension. No spondylolysis defect is seen on the oblique views. There are aortoiliac atherosclerotic calcifications. Iliac stent material is noted. IMPRESSION: 1. There is well-maintained alignment status-post L4-L5 posterior fusion and discectomies. No hardware failure or loosening is seen. 2. There is mild degenerative disc disease at L3-L4. 3. No instability is seen with flexion or extension. XR SACROILIAC JOINTS 04/27/23 CLINICAL INFORMATION: Sacrococcygeal disorders. COMPARISON: Hip radiographs dated 06/19/2021 and 11/06/2017. FINDINGS: Bones and soft tissues are normal. No fracture. Alignment is anatomic. Sacroiliac joint spaces are well-maintained without erosions or surrounding sclerosis. The acetabular joint spaces are well-maintained. The pubic symphysis is intact. Lumbar orthopedic hardware and right iliac stent material are noted. IMPRESSION: Normal sacroiliac joints. BONE DENSITOMETRY 03/22/24 Osteopenia based on the lowest T-score value of -2.3 in the total femur applying World Health Organization criteria. Assessment & Plan Assessment & Plan (1) Lumbar radicular syndrome: Code(s): M54.16 - Radiculopathy, lumbar region Category: Medical (2) Failed back syndrome, lumbar: Code(s): M96.1 - Postlaminectomy syndrome, not elsewhere classified Category: Medical (3) Lumbosacral disc herniation: Code(s): M51.27 - Other intervertebral disc displacement, lumbosacral region Category: Medical (4) Lumbar spondylosis: Code(s): M47.816 - Spondylosis without myelopathy or radiculopathy, lumbar region Category: Medical (5) Sacroiliac joint pain: Code(s): M53.3 - Sacrococcygeal disorders, not elsewhere classified Category: Medical (6) Opioid contract exists: Code(s): Z79.891 - intermediate (current) use of opiate analgesic Category: Medical Plan Patient has shown accountability for her medication regimen and the pill counts were accurate. There is no evidence of misuse, abuse or diversion at this time. [facility] reviewed. Recent ER and hospital stay notes reviewed. Script sent for oxycodone 5 mg QID prn with advanced date of 12/25/24. Patient has Narcan at home. Patient is re-scheduled for Left L5 TFESI on 01/05/[address] Cole for left sided radicular back pain. All questions were answered and the patient is in agreement with the plan. Follow up in one month for a pill count/after injection or sooner if needed. Medications: Changed 2 From oxycodone Partial Fill upon patient request. 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
[2024-12-15 13:09] VITALS: BP 151/68; PULSE 57; O2SAT 96; BMI 20.5
--- OUTSIDE RECORDS SUMMARY | 2024-12-15 15:57 | XMS_ITS | Clinical Summary ---
Author Organization [employer] Address [address] [place] [address] Care Team Providers Care Surfacer Name Role Phone Unavailable Primary Care Provider [...] age to complete this topic Insurance [facility]ICARE [facility]
== END 2024-12-15 13:15 | disposition home or self-care (01) ==
LOC: HO.PMC 12:55
PROVIDERS: PCP Physician Assistant; Visit Provider Nurse Practitioner Family
DX: M54.16 Radiculopathy, lumbar region (principal); M96.1 Postlaminectomy syndrome, not elsewhere classified; M51.27 Other intervertebral disc displacement, lumbosacral region; M47.816 Spondylosis without myelopathy or radiculopathy, lumbar region; M53.3 Sacrococcygeal disorders, not elsewhere classified; Z79.891 Long term (current) use of opiate analgesic
CPT/HCPCS: 99214; G2211

== ENCOUNTER → 2024-12-15 12:54 | Outpatient (BNVA) | payer MEDICARE, MEDICAID, SELFPAY | PROVIDERS: PCP Physician Assistant; Visit Provider Nurse Practitioner Family | DX: Z51.81 Encounter for therapeutic drug level monitoring (principal); M54.16 Radiculopathy, lumbar region; M96.1 Postlaminectomy syndrome, not elsewhere classified; M51.27 Other intervertebral disc displacement, lumbosacral region; M47.816 Spondylosis without myelopathy or radiculopathy, lumbar region; M53.3 Sacrococcygeal disorders, not elsewhere classified; Z79.891 Long term (current) use of opiate analgesic | CPT/HCPCS: 99212 ==

== ENCOUNTER → 2024-12-21 23:59 | Outpatient (BNV) | payer MEDICARE, MEDICAID, SELFPAY ==
--- NOTE | 2024-12-26 14:15 | A.OFFVIS_ITS ---
Intake Visit Reasons: Remote ICD check- [facility] Allergies sacubitril [From Entresto] Adverse Reaction (Severe, Verified 12/15/24 13:10) hyperkalemia valsartan [From Entresto] Adverse Reaction (Severe, Verified 12/15/24 13:10) hyperkalemia [facility]LY [facility] Medical History Renal artery stenosis Heart failure with reduced ejection fraction Acute on chronic systolic (congestive) heart failure Lumbar spondylosis Ischemic cardiomyopathy COVID-19 vaccine series completed History of femoral angiogram Hiatal hernia CAD (coronary artery disease) AAA (abdominal aortic aneurysm) Hx of myocardial infarction Hypertension Peripheral vascular disease CKD (chronic kidney disease) stage 3, GFR 30-59 ml/min History of placement of internal cardiac defibrillator Cervical spondylosis Failed back syndrome, lumbar Surgical History Stented coronary artery Status post cardiac catheterization History of biliary duct stent placement 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 Sister Gynecologic cancer Social History Household Members: None Household Members Other:: Son Housing: Apartment Are you a primary career consultant to a significant other at home: No Alcohol intake: never Comment: Pt independent in room with steady gait, refuses fall risk precautions. Patient Tobacco Use Status: Former Tobacco user Tobacco use type: Cigarette Cigarette Packs Per Day: 1 Cigarettes Per Day: 20.0 Years Smoked: 40 e-Cigarette/Vaping Use: Former Use Second Hand Smoke Exposure: Yes Substance Use Type: Marijuana Advance Directives Date on File: 07/06/21 service: No Current occupational status: disabled Current occupation: rt handed Cognitive needs: No Hearing needs: No Vision needs: Yes (Glasses) Office Procedures Cardiac Device Check Cardiac Device Check Details: Remote ICD report generated 12/21/2024. ICD function is adequate [id number] Cardiac Interrogation, implant defibrillator w/interim Procedure code (CPT) selection complete Assessment & Plan Assessment & Plan (1) History of placement of internal cardiac defibrillator: Comment: The device is a [employer]gie single lead AICD. Model number is [id number]. It is an MRI compatible device. Serial number is [id number]. Code(s): Z95.810 - Presence of automatic (implantable) cardiac defibrillator Category: Medical Plan: See above Coding Level of Care Code Procedure Only Diagnoses History of placement of internal cardiac defibrillator Z95.810 CPT Codes Cardiac Device Check - Cardiac Device 13: [id number] Cardiac Interrogation, implant defibrillator w/interim ([id number])
== END ==
PROVIDERS: PCP Physician Assistant; Visit Provider Internal Medicine Cardiovascular Disease
DX: Z45.02 Encounter for adjustment and management of automatic implantable cardiac defibrillator (principal)
CPT/HCPCS: 93295

== ENCOUNTER 2025-01-05 06:23 | Outpatient (REF) | payer MEDICARE, MEDICAID, SELFPAY ==
--- NOTE | ~2025-01-05 | FL_ITS ---
EXAMINATION: FL GUIDANCE ONLY HISTORY: M54.16 - Radiculopathy, lumbar region COMPARISON: None available. TECHNIQUE: Fluoroscopy time: 0.2 minutes. Cumulative Dose: 2.47 mGy. DAP: 0.0204 mGym2 Images: 3. FINDINGS: Images demonstrate a needle and contrast in the region of the left 5-S1 facet joint. FL/FL guidance in treatment room IMPRESSION: Fluoroscopy during procedure. Please see procedure report for additional information. Electronically signed by: Unruly Matamoros MD 01/05/2025 02:36 PM EDT
== END 2025-01-05 06:24 | disposition home or self-care (01) ==
LOC: CF 06:23
PROVIDERS: Visit Provider Internal Medicine
DX: M54.16 Radiculopathy, lumbar region (principal)
CPT/HCPCS: 64483; J1100; J2003; Q9967

== ENCOUNTER 2025-01-05 12:47 | Outpatient (AMB) | payer MEDICARE, MEDICAID, SELFPAY ==
[2025-01-05 13:02] VITALS: BP 158/76; PULSE 52; RESP 16; O2SAT 98
--- NOTE | 2025-01-05 13:02 | A.OFFVIS_ITS ---
Vital Signs 01/05/25 13:02 01/05/25 13:35 BP 158/76 H 144/78 H Blood Pressure Location Lt brachial Lt brachial Position Sitting Sitting Respiration 16 16 Pulse 52 61 Pulse Source Pulse Oximeter Pulse Oximeter Pulse Oximetry (%) 98 100 Oxygen Delivery Method Room Air Room Air Intake Visit Reasons: LEFT L5 TFESI Conditioner Tender Required: No Allergies sacubitril [From Entresto] Adverse Reaction (Severe, Verified 01/05/25 13:02) hyperkalemia valsartan [From Entresto] Adverse Reaction (Severe, Verified 01/05/25 13:02) hyperkalemia Medication List - Last Reconciled 01/05/25 by Audra Morillo LPN aspirin (Adult Low Dose Aspirin) 81 mg PO DAILY atorvastatin 80 mg PO DAILY blood pressure monitor As directed calcium carbonate (Oyster Shell Calcium) 500 mg PO DAILY 90 days cyclobenzaprine 10 mg PO TID PRN 30 days diphenoxylate-atropine 2.5-0.025 mg 1 tab PO BID PRN ezetimibe 10 mg PO DAILY furosemide 20 mg PO DAILY PRN metoprolol succinate ER 50 mg PO DAILY oxycodone 5 mg PO Q6H PRN 30 days rivaroxaban (Xarelto) 2.5 mg PO BID trazodone 50 mg PO BEDTIME PRN triamcinolone acetonide 0.5% 1 appl topical DAILY PRN HPI HPI LEFT L5 TFESI: Details: Patient presents for scheduled procedure. Denies any recent cough, cold, infection, fever or other significant changes in medical history since last office visit. [facility] Medical History Renal artery stenosis Heart failure with reduced ejection fraction Acute on chronic systolic (congestive) heart failure Lumbar spondylosis Ischemic cardiomyopathy COVID-19 vaccine series completed History of femoral angiogram Hiatal hernia CAD (coronary artery disease) AAA (abdominal aortic aneurysm) Hx of myocardial infarction Hypertension Peripheral vascular disease CKD (chronic kidney disease) stage 3, GFR 30-59 ml/min History of placement of internal cardiac defibrillator Cervical spondylosis Failed back syndrome, lumbar Surgical History Stented coronary artery Status post cardiac catheterization History of biliary duct stent placement 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 Sister Gynecologic cancer Social History Household Members: None Household Members Other:: Son Housing: Apartment Are you a primary career technical education instructor to a significant other at home: No Alcohol intake: never Comment: Pt independent in room with steady gait, refuses fall risk precautions. Patient Tobacco Use Status: Former Tobacco user Tobacco use type: Cigarette Cigarette Packs Per Day: 1 Cigarettes Per Day: 20.0 Years Smoked: 40 e-Cigarette/Vaping Use: Former Use Second Hand Smoke Exposure: Yes Substance Use Type: Marijuana Advance Directives Date on File: 07/06/21 service: No Current occupational status: disabled Current occupation: rt handed Cognitive needs: No Hearing needs: No Vision needs: Yes (Glasses) Physical Exam Vital Signs: Last Vital Signs Pulse 52 01/05/25 13:02 Resp 16 01/05/25 13:02 BP 158/76 H 01/05/25 13:02 Pulse Ox 98 01/05/25 13:02 Oxygen Delivery Method Room Air 01/05/25 13:02 Office Procedures Details: Transforaminal epidural steroid injection, Left L5 After obtaining written consent, pre-procedure blood pressure and heart rate were stable and recorded in the nursing record. The patient was placed in the prone position on the fluoroscopy table. The lumbosacral area was prepped with chloraprep, allowed to dry and draped in sterile fashion. Using fluoroscopy, the skin overlying our target was anesthetized with 0.5% lidocaine. A 22 gauge 3.5 inch spinal needle was advanced to the safe triangle in the upper pole of the left L5 foramen. No paresthesias were elicited with needle placement and aspiration was negative for blood and CSF. Correct needle position was confirmed with approximately 1 ml contrast dye (Omnipaque 180 mg/ml) injected under real-time fluoroscopy. No evidence of vascular or intrathecal uptake was seen and there was both epidural and peripheral spread of the contrast agent. 10 mg dexamethasone plus 1 ml containing 0.5% lidocaine was slowly injected. The needle was flushed and removed. The skin was cleansed and a sterile bandages were applied. The patient tolerated the procedure well and no complications were encountered. Following the procedure the patient's vital signs were stable. The patient was discharged home in good condition with post-procedural instructions. Time Out: Immediately prior to the procedure, the following was verbally confirmed that there is a signed consent form and that the correct patient, planned procedure, site and side are consistent with documentation and that necessary equipment and/or blood products are available prior to the start of the case. Complications: none EBL: <5 cc 21428 - Lumbar/Sacral Procedure code (CPT) selection complete Assessment & Plan Assessment & Plan (1) Lumbar radicular syndrome: Code(s): M54.16 - Radiculopathy, lumbar region Category: Medical Plan Patient is status post left L5 TFESI. Patient tolerated procedure well and was discharged home in stable condition with discharge instructions. All questions were answered. We will follow-up via telephone or in clinic to assess response to therapy. A follow-up appointment was made during today's visit. Orders: Orders FL guidance in treatment room Today M54.16 - Radiculopathy, lumbar region Coding Level of Care Code Procedure Only Diagnoses Lumbar radicular syndrome M54.16 CPT Codes Transforaminal Epidural Steroid Inj - TESI 3: 12351 - Lumbar/Sacral ([id number])
[2025-01-05 13:35] VITALS: BP 144/78; PULSE 61; RESP 16; O2SAT 100
--- OUTSIDE RECORDS SUMMARY | 2025-01-05 15:32 | XMS_ITS | Clinical Summary ---
Author Organization [facility] Address [address] [place] [address] Care Team Providers Care Fbi Profiler Name Role Phone Unavailable Primary Care Provider [...] age to complete this topic Insurance MEDICARE [facility]
== END 2025-01-05 13:35 | disposition home or self-care (01) ==
LOC: HO.PMCPRC 12:47
PROVIDERS: PCP Physician Assistant; Visit Provider Internal Medicine
DX: M54.16 Radiculopathy, lumbar region (principal)
CPT/HCPCS: 64483

== ENCOUNTER 2025-01-12 12:54 | Outpatient (AMB) | payer MEDICARE, MEDICAID, SELFPAY ==
--- NOTE | 2025-01-12 13:15 | A.OFFVIS_ITS ---
Vital Signs 3 01/12/25 13:28 Height 4 ft 11.5 in Weight 107 lb BMI 21.2 BP 153/69 H Blood Pressure Location Rt brachial Position Sitting Pulse 80 Pulse Source Pulse Oximeter Pulse Oximetry (%) 98 Oxygen Delivery Method Room Air Intake Visit Reasons: Pill count Intake Note: Lcui comes in today for a pill count to oxycodone, patient should have 44 tablets and presents with 47 tablets which she last took today 01/13/24 at 11am. 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 Patient is supposed to have #44 pills, in her possession has #47 pills. This demonstrates a responsible attitude in regards to the medication regimen. Patient reports reasonable analgesia, with no noted side effects. She also takes trazadone for sleep and cyclobenzaprine for muscle spasms with partial relief. Patient continues to endorse significant low back pain with radiation into her left lower extremity. She underwent left L5 TFESI on 01/05/[address] Cole with minimal relief so far. We will reassess her therapeutic response next month. Denies any fever, dizziness, chest pain, shortness of breaths, constipation, nausea, sedation, dizziness, or urinary retention. Past Procedures: 01/05/25: Left L5 TFESI--minimal relief for >1 week [facility] Medical History Renal artery stenosis Heart failure with reduced ejection fraction Acute on chronic systolic (congestive) heart failure Lumbar spondylosis Ischemic cardiomyopathy COVID-19 vaccine series completed History of femoral angiogram Hiatal hernia CAD (coronary artery disease) AAA (abdominal aortic aneurysm) Hx of myocardial infarction Hypertension Peripheral vascular disease CKD (chronic kidney disease) stage 3, GFR 30-59 ml/min History of placement of internal cardiac defibrillator Cervical spondylosis Failed back syndrome, lumbar Surgical History Stented coronary artery Status post cardiac catheterization History of biliary duct stent placement 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 Sister Gynecologic cancer Social History Household Members: None Household Members Other:: Son Housing: Apartment Are you a primary ambulatory care coordinator to a significant other at home: No Alcohol intake: never Comment: Pt independent in room with steady gait, refuses fall risk precautions. Patient Tobacco Use Status: Former Tobacco user Tobacco use type: Cigarette Cigarette Packs Per Day: 1 Cigarettes Per Day: 20.0 Years Smoked: 40 e-Cigarette/Vaping Use: Former Use Second Hand Smoke Exposure: Yes Substance Use Type: Marijuana Advance Directives Date on File: 07/06/21 service: No Current occupational status: disabled Current occupation: rt handed Cognitive needs: No Hearing needs: No Vision needs: Yes (Glasses) Review of Systems Const All systems reviewed & are unremarkable except as noted in HPI and below Physical Exam Vital Signs: Last Vital Signs Pulse 80 01/12/25 13:28 BP 153/69 H 01/12/25 13:28 Pulse Ox 98 01/12/25 13:28 Oxygen Delivery Method Room Air 01/12/25 13:28 BMI result Body Mass Index 21.2 On exam today: Appears afebrile. Moderate distress due to back pain. Alert and oriented. Mood and affect appropriate. Follows and participates in conversation appropriately. Respiratory effort is unlabored. No cough. Able to transition from sit to stand unassisted, reports imbalance on LLE due to pain. General: Yes no CVA tenderness Back/Spine/Pelvis Other: Limited lumbar ROM due to pain. Lumbar extension and flexion forward reproduces moderate pain. Painful facet loading bilaterally. Back: no CVA tenderness Cervical Spine: loss of normal cervical lordosis, cervical muscular tenderness, pain with cervical ROM, No Cervical spine scars present, cervical spasm and No Cervical spine tenderness Thoracic/Lumbar Spine: thoracic and lumbar spine normal to inspection, Thoracic/lumbar spine scar(s), Lasegue's sign positive on the left and diffuse, pain with thoraco-lumbar ROM, paraspinal muscle tenderness, thoraco-lumbar ROM limited, No thoracic spinal tenderness and lumbar spinal tenderness at L4 and at L5 Sacroiliac joints: on the right nontender and on the left (+Jimbo's, +Stinchfield) tender to palpation Extrem General: Yes capillary refill normal, Yes no clubbing, cyanosis or edema and Yes no calf tenderness Psych Appearance: grossly normal Mental Status: mental status grossly normal Speech and movement: Normal speech and movement present and Clear speech present Affect: normal affect Attitude: cooperative Thought process: Normal thought process present Thought content: Normal thought content present, suicidality (none), no hallucinations and Depressive thoughts present Insight: Good insight present (Psych) Judgement: Good judgement present (Psych) Results Reviewed Results Reviewed: XR LUMBOSACRAL SPINE WITH OBLIQUES 04/27/23 CLINICAL INFORMATION: Postlaminectomy syndrome. COMPARISON: Radiographs dated 05/10/2019. TECHNIQUE: AP, both oblique, and lateral (neutral, flexion and extension) views of the lumbar spine. Lateral view of the lumbosacral junction. FINDINGS: There is bony demineralization. At L3-L4, there is a 4 mm anterolisthesis. There is well-maintained alignment status-post L4-L5 posterior fusion and discectomy, with intact posterior fixator rods, pedicular screws and disc spacer. No hardware failure or loosening is seen. There is no acute fracture or spondylolisthesis. No instability is seen with flexion or extension. No spondylolysis defect is seen on the oblique views. There are aortoiliac atherosclerotic calcifications. Iliac stent material is noted. IMPRESSION: 1. There is well-maintained alignment status-post L4-L5 posterior fusion and discectomies. No hardware failure or loosening is seen. 2. There is mild degenerative disc disease at L3-L4. 3. No instability is seen with flexion or extension. XR SACROILIAC JOINTS 04/27/23 CLINICAL INFORMATION: Sacrococcygeal disorders. COMPARISON: Hip radiographs dated 06/19/2021 and 11/06/2017. FINDINGS: Bones and soft tissues are normal. No fracture. Alignment is anatomic. Sacroiliac joint spaces are well-maintained without erosions or surrounding sclerosis. The acetabular joint spaces are well-maintained. The pubic symphysis is intact. Lumbar orthopedic hardware and right iliac stent material are noted. IMPRESSION: Normal sacroiliac joints. BONE DENSITOMETRY 03/22/24 Osteopenia based on the lowest T-score value of -2.3 in the total femur applying World Health Organization criteria. Assessment & Plan Assessment & Plan (1) Lumbar radicular syndrome: Code(s): M54.16 - Radiculopathy, lumbar region Category: Medical (2) Failed back syndrome, lumbar: Code(s): M96.1 - Postlaminectomy syndrome, not elsewhere classified Category: Medical (3) Lumbosacral disc herniation: Code(s): M51.27 - Other intervertebral disc displacement, lumbosacral region Category: Medical (4) Lumbar spondylosis: Code(s): M47.816 - Spondylosis without myelopathy or radiculopathy, lumbar region Category: Medical (5) Sacroiliac joint pain: Code(s): M53.3 - Sacrococcygeal disorders, not elsewhere classified Category: Medical (6) Opioid contract exists: Code(s): Z79.891 - supervisor intermediates (current) use of opiate analgesic Category: Medical Plan Patient has shown accountability for her medication regimen and the pill counts were accurate. There is no evidence of misuse, abuse or diversion at this time. [employer] reviewed. Recent ER and hospital stay notes reviewed. Script sent for oxycodone 5 mg QID prn with advanced date of 01/21/25. Patient has Narcan at home. Patient is one week s/p Left L5 TFESI on 01/05/[address] Cole for left sided radicular back pain with minimal relief so far. We will reassess injection response in one month. All questions were answered and the patient is in agreement with the plan. Follow up in one month for a pill count or sooner if needed. Medications: Refilled 2 oxycodone Partial Fill upon patient request. 5 mg PO Q6H 30 days PRN 120 tabs 0RF pain (scale score 7-10) M47.816 - Spondylosis without myelopathy or radiculopathy, lumbar region, M96.1 - Postlaminectomy syndrome, not elsewhere classified, Z79.891 - supervisor intermediates (current) use of opiate analgesic Coding Level of Care Code Est Pt Level 4 (18482) Complex EM visit Add On G2211 Diagnoses Lumbar radicular syndrome M54.16 Failed back syndrome, lumbar M96.1 Lumbosacral disc herniation M51.27 Lumbar spondylosis M47.816 Sacroiliac joint pain M53.3 Opioid contract exists Z79.891
[2025-01-12 13:28] VITALS: BP 153/69; PULSE 80; O2SAT 98; BMI 21.2
== END 2025-01-12 13:27 | disposition home or self-care (01) ==
LOC: HO.PMC 12:55
PROVIDERS: PCP Physician Assistant; Visit Provider Nurse Practitioner Family
DX: M54.16 Radiculopathy, lumbar region (principal); M96.1 Postlaminectomy syndrome, not elsewhere classified; M51.27 Other intervertebral disc displacement, lumbosacral region; M47.816 Spondylosis without myelopathy or radiculopathy, lumbar region; M53.3 Sacrococcygeal disorders, not elsewhere classified; Z79.891 Long term (current) use of opiate analgesic
CPT/HCPCS: 99214; G2211

== ENCOUNTER → 2025-01-12 12:54 | Outpatient (BNVA) | payer MEDICARE, MEDICAID, SELFPAY | PROVIDERS: PCP Physician Assistant; Visit Provider Nurse Practitioner Family | DX: M47.26 Other spondylosis with radiculopathy, lumbar region (principal); M96.1 Postlaminectomy syndrome, not elsewhere classified; M51.27 Other intervertebral disc displacement, lumbosacral region; M53.3 Sacrococcygeal disorders, not elsewhere classified; Z51.81 Encounter for therapeutic drug level monitoring; Z79.891 Long term (current) use of opiate analgesic | CPT/HCPCS: 99212 ==

== ENCOUNTER 2025-01-25 15:08 | Outpatient (AMB) | payer MEDICARE, MEDICAID, SELFPAY ==
[2025-01-25 15:20] VITALS: BMI 21.6
--- NOTE | 2025-01-25 15:20 | MHC.OFFVIS ---
Vital Signs 01/25/25 15:20 Height 4 ft 11 in Weight 107 lb BMI 21.6 Intake Visit Reasons: Inj-Left hand injection last inj 09/27/24 Intake Note: Luci 68 yr old female presents today for her follow up visit for her left thumb basal joint injection done on 09/27/[address] Wallace. Allergies sacubitril [From Entresto] Adverse Reaction (Severe, Verified 01/25/25 15:25) hyperkalemia valsartan [From Entresto] Adverse Reaction (Severe, Verified 01/25/25 15:25) hyperkalemia HPI HPI Inj-Left hand injection last inj 09/27/24: Details: Luci is a 68 year old right hand dominant woman with known left basal joint OA.She was last seen, and injected, on 09/27/24 She says her last injection was very helpful and she only has very mild pain today. She finds good relief from wearing her comfort cool brace. She states she takes Oxycodone for her back pain. 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 She smokes weed primarily at night for pain relief, relaxation, and to boost her appetite. [facility] Medical History Renal artery stenosis Heart failure with reduced ejection fraction Acute on chronic systolic (congestive) heart failure Lumbar spondylosis Ischemic cardiomyopathy COVID-19 vaccine series completed History of femoral angiogram Hiatal hernia CAD (coronary artery disease) AAA (abdominal aortic aneurysm) Hx of myocardial infarction Hypertension Peripheral vascular disease CKD (chronic kidney disease) stage 3, GFR 30-59 ml/min History of placement of internal cardiac defibrillator Cervical spondylosis Failed back syndrome, lumbar Surgical History Stented coronary artery Status post cardiac catheterization History of biliary duct stent placement 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 Sister Gynecologic cancer Social History Household Members: None Household Members Other:: Son Housing: Apartment Are you a primary personal care aide to a significant other at home: No Alcohol intake: never Comment: Pt independent in room with steady gait, refuses fall risk precautions. Patient Tobacco Use Status: Former Tobacco user Tobacco use type: Cigarette Cigarette Packs Per Day: 1 Cigarettes Per Day: 20.0 Years Smoked: 40 e-Cigarette/Vaping Use: Former Use Second Hand Smoke Exposure: Yes Substance Use Type: Marijuana Advance Directives Date on File: 07/06/21 service: No Current occupational status: disabled Current occupation: rt handed Cognitive needs: No Hearing needs: No Vision needs: Yes (Glasses) Physical Exam Vital Signs: BMI result Body Mass Index 21.6 Const General: no acute distress and alert Orientation/consciousness: patient oriented x3 Neuro General: patient oriented x3 Extrem Other: Evaluation of Left Upper Extremity: The patient is alert, oriented, and in no acute distress Neuro: Median, Ulnar, Radial nerves motor and sensory intact and sensation is normal to the tips of all digits Vascular: Cap refill brisk ROM: She can make a fist and extend all of her digits. She can oppose her thumb to all digits. NTTP basal joint of the left thumb. 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 Left Basal joint arthritis, S/P repeat injections Date of Injections: 09/27/24, 05/24/24, 02/03/24, 09/23/23, 01/21/23, 07/07/22, 01/29/22 I educated her about this condition I discussed treatment options, including the possibility of surgery in the future She says her most recent injection gave her very good relief and she denies any pain today After discussing these options, we decidedto delay an injection at this time I discussed activity modification, they should limit or avoid any heavy or repetitive pinching or gripping activities She should continue to wear her comfort cool brace with daily activities She can follow up in 2 months to discuss an injection. If she is doing well she can continue to reschedule this appointment for a later date. Please note that this patient has a significant cardiac condition, and evidently had a major heart attack following spine surgery. She has an implantable cardiac defibrillator in place, and is on Xarelto. She also has other medical conditions that make surgery less attractive. She says she was told that she should only have surgery if it is absolutely necessary. Recommended the use of Tylenol or Ibuprofen OTC to help with relief once the numbing medication wears off. Follow up will be in about 4 months for another injection. She will call the office if she is not needing the injection at that time. Scribed for Gina Wallace MD by Nader Staples, medical education coordinator, on 01/25/25 at 3:45 PM, EST. Coding Level of Care Code Est Pt Level 3 (97042) Diagnoses Arthritis of carpometacarpal (CMC) joint of left thumb M18.12 Opioid contract exists Z79.891
== END 2025-01-25 15:50 | disposition home or self-care (01) ==
PROVIDERS: PCP Physician Assistant; Visit Provider Orthopaedic Surgery
DX: M18.12 Unilateral primary osteoarthritis of first carpometacarpal joint, left hand (principal); Z79.891 Long term (current) use of opiate analgesic
CPT/HCPCS: 99213

== ENCOUNTER → 2025-01-25 15:08 | Outpatient (BNVA) | payer MEDICARE, MEDICAID, SELFPAY | PROVIDERS: PCP Physician Assistant; Visit Provider Orthopaedic Surgery | DX: M18.12 Unilateral primary osteoarthritis of first carpometacarpal joint, left hand (principal); Z79.891 Long term (current) use of opiate analgesic | CPT/HCPCS: 99212 ==

== ENCOUNTER 2025-02-02 12:56 | Outpatient (AMB) | payer MEDICARE, MEDICAID, SELFPAY ==
--- NOTE | 2025-02-02 12:58 | A.OFFVIS_ITS ---
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 She reports no significant change in her pain level since receiving a left L5 TFESI injection on 01/05/25. The pain radiates from her lower back to the left leg, particularly affecting the hip and posterior thigh. She indicates that pain medications provide more relief than the injection. Her medical history includes a lumbar spinal fusion surgery, described as having a cage in her back, and the presence of an implantable cardiac defibrillator (ICD). The patient is limited in walking, being able to walk only 3 to 4 minutes, and can stand for about 10 minutes before having to sit down. - Onset: Chronic - Quality: Radiating down the left leg, primarily from the hip area and posterior thigh; shooting, throbbing, numbness, tingling - Primary Location: Lower back - Radiation: Left leg - Exacerbating Factors: Walking and standing for extended periods - Relieving Factors: Pain medication - Interference: Limited to 3 to 4 minutes of walking, standing for approximately 10 minutes before requiring a rest - Affect: Patient shows frustration due to persistent pain despite interventions - Analgesia: Pain medications provide more relief than injections, chronic rating has not improved significantly - Adverse Effects: Not explicitly detailed - Activities of Daily Living: Limited walking (3-4 minutes) and standing (10 minutes), sitting is unlimited - Aberrant Drug Related Behaviors: None reported PRIOR 01/12/25: Patient presents today for a pill count. Patient is supposed to have #44 pills, in her possession has #47 pills. This demonstrates a responsible attitude in regards to the medication regimen. Patient reports reasonable analgesia, with no noted side effects. She also takes trazadone for sleep and cyclobenzaprine for muscle spasms with partial relief. Patient continues to endorse significant low back pain with radiation into her left lower extremity. She underwent left L5 TFESI on 01/05/[address] Cole with minimal relief so far. We will reassess her therapeutic response next month. Denies any fever, dizziness, chest pain, shortness of breaths, constipation, nausea, sedation, dizziness, or urinary retention. Past Procedures: 01/05/25: Left L5 TFESI--minimal relief for >1 week [facility] Medical History Renal artery stenosis Heart failure with reduced ejection fraction Acute on chronic systolic (congestive) heart failure Lumbar spondylosis Ischemic cardiomyopathy COVID-19 vaccine series completed History of femoral angiogram Hiatal hernia CAD (coronary artery disease) AAA (abdominal aortic aneurysm) Hx of myocardial infarction Hypertension Peripheral vascular disease CKD (chronic kidney disease) stage 3, GFR 30-59 ml/min History of placement of internal cardiac defibrillator Cervical spondylosis Failed back syndrome, lumbar Surgical History Stented coronary artery Status post cardiac catheterization History of biliary duct stent placement 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 Sister Gynecologic cancer Social History Household Members: None Household Members Other:: Son Housing: Apartment Are you a primary health care facility administrator to a significant other at home: No Alcohol intake: never Comment: Pt independent in room with steady gait, refuses fall risk precautions. Patient Tobacco Use Status: Former Tobacco user Tobacco use type: Cigarette Cigarette Packs Per Day: 1 Cigarettes Per Day: 20.0 Years Smoked: 40 e-Cigarette/Vaping Use: Former Use Second Hand Smoke Exposure: Yes Substance Use Type: Marijuana Advance Directives Date on File: 07/06/21 service: No Current occupational status: disabled Current occupation: rt handed Cognitive needs: No Hearing needs: No Vision needs: Yes (Glasses) Review of Systems Const Details: - Musculoskeletal: Reports lower back pain radiating to the left leg - Cardiac: Reports implantable cardiac defibrillator - Neurological: Denies symptoms on the right side, bladder or bowel dysfunction, or saddle anesthesia. All systems reviewed & are unremarkable except as noted in HPI and below Physical Exam On exam today: Appears afebrile. Moderate distress due to back pain. Alert and oriented. Mood and affect appropriate. Follows and participates in conversation appropriately. Respiratory effort is unlabored. No cough. Able to transition from sit to stand unassisted, reports imbalance on LLE due to pain. General: Yes no CVA tenderness Back/Spine/Pelvis Other: Limited lumbar ROM due to pain. Lumbar extension and flexion forward reproduces moderate pain. Painful facet loading bilaterally. Back: no CVA tenderness Cervical Spine: loss of normal cervical lordosis, cervical muscular tenderness, pain with cervical ROM, No Cervical spine scars present, cervical spasm and No Cervical spine tenderness Thoracic/Lumbar Spine: thoracic and lumbar spine normal to inspection, Thoracic/lumbar spine scar(s), Lasegue's sign positive on the left and diffuse, pain with thoraco-lumbar ROM, paraspinal muscle tenderness, thoraco-lumbar ROM limited, No thoracic spinal tenderness and lumbar spinal tenderness (L4-S1) Pelvis: buttock tenderness on the left Sacroiliac joints: on the right nontender and on the left (+Jimbo's, +Stinchfield) tender to palpation Extrem General: Yes capillary refill normal, Yes no clubbing, cyanosis or edema and Yes no calf tenderness Psych Appearance: grossly normal Mental Status: mental status grossly normal Speech and movement: Normal speech and movement present and Clear speech present Affect: normal affect Attitude: cooperative Thought process: Normal thought process present Thought content: Normal thought content present, suicidality (none), no hallucinations and Depressive thoughts present Insight: Good insight present (Psych) Judgement: Good judgement present (Psych) Results Reviewed Results Reviewed: XR LUMBOSACRAL SPINE WITH OBLIQUES 04/27/23 CLINICAL INFORMATION: Postlaminectomy syndrome. COMPARISON: Radiographs dated 05/10/2019. TECHNIQUE: AP, both oblique, and lateral (neutral, flexion and extension) views of the lumbar spine. Lateral view of the lumbosacral junction. FINDINGS: There is bony demineralization. At L3-L4, there is a 4 mm anterolisthesis. There is well-maintained alignment status-post L4-L5 posterior fusion and discectomy, with intact posterior fixator rods, pedicular screws and disc spacer. No hardware failure or loosening is seen. There is no acute fracture or spondylolisthesis. No instability is seen with flexion or extension. No spondylolysis defect is seen on the oblique views. There are aortoiliac atherosclerotic calcifications. Iliac stent material is noted. IMPRESSION: 1. There is well-maintained alignment status-post L4-L5 posterior fusion and discectomies. No hardware failure or loosening is seen. 2. There is mild degenerative disc disease at L3-L4. 3. No instability is seen with flexion or extension. XR SACROILIAC JOINTS 04/27/23 CLINICAL INFORMATION: Sacrococcygeal disorders. COMPARISON: Hip radiographs dated 06/19/2021 and 11/06/2017. FINDINGS: Bones and soft tissues are normal. No fracture. Alignment is anatomic. Sacroiliac joint spaces are well-maintained without erosions or surrounding sclerosis. The acetabular joint spaces are well-maintained. The pubic symphysis is intact. Lumbar orthopedic hardware and right iliac stent material are noted. IMPRESSION: Normal sacroiliac joints. BONE DENSITOMETRY 03/22/24 Osteopenia based on the lowest T-score value of -2.3 in the total femur applying World Health Organization criteria. Assessment & Plan Assessment & Plan (1) Lumbar radicular syndrome: Code(s): M54.16 - Radiculopathy, lumbar region Category: Medical (2) Failed back syndrome, lumbar: Code(s): M96.1 - Postlaminectomy syndrome, not elsewhere classified Category: Medical (3) History of lumbar fusion: Comment: 2014 Code(s): Z98.1 - Arthrodesis status Category: Surgical (4) Lumbar spondylosis: Code(s): M47.816 - Spondylosis without myelopathy or radiculopathy, lumbar region Category: Medical (5) Sacroiliac joint pain: Code(s): M53.3 - Sacrococcygeal disorders, not elsewhere classified Category: Medical Plan In addressing the patient?s chronic lower back pain with radiculopathy, I recommended consulting Neurosurgery to investigate minimally invasive options, particularly given the limited efficacy of previous treatments including recent Left L5 TFESI injection. Due to the potential interference with the implantable cardiac defibrillator, a spinal cord stimulator is not favored per patient; Current pain management with oral medications remains, and regular evaluation of pain levels will determine possible plan adjustments. All questions and concerns have been answered and patient agreed with the plan. Follow up for pill count as scheduled and sooner as needed. Patient was informed and verbally consented to the use of an ambient scribe for clinic note documentation during this visit. Orders: Referrals 2 Neuro Spine Referral M54.16 - Radiculopathy, lumbar region, M96.1 - Postlaminectomy syndrome, not elsewhere classified, Z98.1 - Arthrodesis status Coding Level of Care Code Est Pt Level 3 (74463) Complex EM visit Add On G2211 Diagnoses Lumbar radicular syndrome M54.16 Failed back syndrome, lumbar M96.1 History of lumbar fusion Z98.1 Lumbar spondylosis M47.816 Sacroiliac joint pain M53.3
[2025-02-02 13:01] VITALS: BP 162/74; PULSE 89; O2SAT 97; BMI 21.6
--- OUTSIDE RECORDS SUMMARY | 2025-02-02 13:34 | XMS_ITS | Clinical Summary ---
Author Organization [employer] Address [address] [place] [address] Care Team Providers Care Electroencephalogram Technologist Name Role Phone Unavailable Primary Care Provider [...] age to complete this topic Insurance MEDICARE [facility]
== END 2025-02-02 13:14 | disposition home or self-care (01) ==
LOC: HO.PMC 12:56
PROVIDERS: PCP Physician Assistant; Visit Provider Nurse Practitioner Family
DX: M54.16 Radiculopathy, lumbar region (principal); M96.1 Postlaminectomy syndrome, not elsewhere classified; Z98.1 Arthrodesis status; M47.816 Spondylosis without myelopathy or radiculopathy, lumbar region; M53.3 Sacrococcygeal disorders, not elsewhere classified
CPT/HCPCS: 99213; G2211

== ENCOUNTER → 2025-02-02 12:56 | Outpatient (BNVA) | payer MEDICARE, MEDICAID, SELFPAY | PROVIDERS: PCP Physician Assistant; Visit Provider Nurse Practitioner Family | DX: M54.16 Radiculopathy, lumbar region (principal); M96.1 Postlaminectomy syndrome, not elsewhere classified; M47.816 Spondylosis without myelopathy or radiculopathy, lumbar region; M53.3 Sacrococcygeal disorders, not elsewhere classified; Z98.1 Arthrodesis status | CPT/HCPCS: 99212 ==

== ENCOUNTER 2025-02-09 12:58 | Outpatient (REF) | payer MEDICARE, MEDICAID, SELFPAY ==
--- NOTE | ~2025-02-09 | XR_ITS ---
CLINICAL HISTORY: Z98.1 - Arthrodesis status --- Additional Notes or Special Instructions: standing, a p, lateral with flex ext views 4 views lumbar spine Comparison: CR/DE/SR - XR LUMBAR SPINE 6V W BENDING - 04/27/23 13:53 EDT Findings: No acute fracture. Degenerative changes of the lumbar spine with narrowing of the L5-S1. There is grade 1 anterolisthesis of L3 on L4. Status post posterior spinal fusion of L4-L5. No instability on the flexion and extension images. Atherosclerosis calcification of the aorta. There are bilateral iliac stents. IMPRESSION: Lumbar spinal fusion with no evidence of hardware complication. This document has been electronically signed by: Alexis Lozano MD on 02/10/2025 16:09:41
== END 2025-02-09 12:59 | disposition home or self-care (01) ==
LOC: HO.HOSX 12:58
PROVIDERS: PCP Physician Assistant; Visit Provider Nurse Practitioner Family
DX: M54.16 Radiculopathy, lumbar region (principal); M51.27 Other intervertebral disc displacement, lumbosacral region; M47.816 Spondylosis without myelopathy or radiculopathy, lumbar region; M53.3 Sacrococcygeal disorders, not elsewhere classified; M96.1 Postlaminectomy syndrome, not elsewhere classified; Z98.1 Arthrodesis status; Z79.01 Long term (current) use of anticoagulants; Z79.891 Long term (current) use of opiate analgesic
CPT/HCPCS: 72110; 99202; 99212

== ENCOUNTER 2025-02-09 12:58 | Outpatient (AMB) | payer MEDICARE, MEDICAID, SELFPAY ==
--- NOTE | 2025-02-09 13:00 | A.OFFVIS_ITS ---
Vital Signs 02/09/25 13:06 Height 4 ft 11 in Weight 106 lb 6 oz BMI 21.5 BP 156/87 H Blood Pressure Location Rt brachial Position Sitting Pulse 55 Pulse Source Pulse Oximeter Pulse Oximetry (%) 98 Oxygen Delivery Method Room Air Intake Visit Reasons: PILL COUNT Intake Note: Luci comes in today for a pill count to oxycodone, patient should have 44 tablets and presents with 54 tablets which she last took today 02/09/25 at 12pm. 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 Patient is supposed to have #44 pills, in her possession has #54 pills. This demonstrates a responsible attitude in regards to the medication regimen. Patient reports mild to moderate analgesia, with no noted side effects. She also takes trazadone for sleep and cyclobenzaprine for muscle spasms with partial relief. Patient continues to endorse significant low back pain with radiation into her left lower extremity. She underwent left L5 TFESI on 01/05/[address] Cole with minimal relief so far. The pain radiates from her lower back to the left leg, particularly affecting the hip and posterior thigh. She indicates that pain medications provide more relief than the injection. Her medical history includes a lumbar spinal fusion surgery, described as having a cage in her back, and the presence of an implantable cardiac defibrillator (ICD). The patient is limited in walking, being able to walk only 5 minutes, and can stand for about 10 minutes before having to sit down. Patient is seeing our colleagues at [facility] for surgical evaluation. She has brought MRI disk. Denies any fever, dizziness, chest pain, shortness of breaths, constipation, nausea, sedation, dizziness, or urinary retention. Past Procedures: 01/05/25: Left L5 TFESI--minimal relief for >1 week [facility] History Renal artery stenosis Heart failure with reduced ejection fraction Acute on chronic systolic (congestive) heart failure Lumbar spondylosis Ischemic cardiomyopathy COVID-19 vaccine series completed History of femoral angiogram Hiatal hernia CAD (coronary artery disease) AAA (abdominal aortic aneurysm) Hx of myocardial infarction Hypertension Peripheral vascular disease CKD (chronic kidney disease) stage 3, GFR 30-59 ml/min History of placement of internal cardiac defibrillator Cervical spondylosis Failed back syndrome, lumbar Surgical History Stented coronary artery Status post cardiac catheterization History of biliary duct stent placement 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 Sister Gynecologic cancer Social History Household Members: None Household Members Other:: Son Housing: Apartment Are you a primary continuum of care manager to a significant other at home: No Alcohol intake: never Comment: Pt independent in room with steady gait, refuses fall risk precautions. Patient Tobacco Use Status: Former Tobacco user Tobacco use type: Cigarette Cigarette Packs Per Day: 1 Cigarettes Per Day: 20.0 Years Smoked: 40 e-Cigarette/Vaping Use: Former Use Second Hand Smoke Exposure: Yes Substance Use Type: Marijuana Advance Directives Date on File: 07/06/21 service: No Current occupational status: disabled Current occupation: rt handed Cognitive needs: No Hearing needs: No Vision needs: Yes (Glasses) Review of Systems Const All systems reviewed & are unremarkable except as noted in HPI and below Physical Exam Vital Signs: Last Vital Signs Pulse 55 02/09/25 13:06 BP 156/87 H 02/09/25 13:06 Pulse Ox 98 02/09/25 13:06 Oxygen Delivery Method Room Air 02/09/25 13:06 BMI result Body Mass Index 21.5 On exam today: Appears afebrile. Alert and oriented. Mood and affect appropriate. Follows and participates in conversation appropriately. Respiratory effort is unlabored. No cough. Able to transition from sit to stand unassisted, reports imbalance on LLE due to pain. General: Yes no CVA tenderness Back/Spine/Pelvis Other: Limited lumbar ROM due to pain. Lumbar extension and flexion forward reproduces moderate pain. Painful facet loading bilaterally. Back: no CVA tenderness Cervical Spine: loss of normal cervical lordosis, cervical muscular tenderness, pain with cervical ROM, No Cervical spine scars present, cervical spasm and No Cervical spine tenderness Thoracic/Lumbar Spine: thoracic and lumbar spine normal to inspection, Thoracic/lumbar spine scar(s), Lasegue's sign positive on the left and diffuse, pain with thoraco-lumbar ROM, paraspinal muscle tenderness, thoraco-lumbar ROM limited, No thoracic spinal tenderness and lumbar spinal tenderness (L4-S1) Pelvis: buttock tenderness on the left Sacroiliac joints: on the right nontender and on the left (+Jimbo's, +Sti nchfield) tender to palpation Extrem General: Yes capillary refill normal, Yes no clubbing, cyanosis or edema and Yes no calf tenderness Psych Appearance: grossly normal and well kempt Mental Status: mental status grossly normal Speech and movement: Normal speech and movement present and Clear speech present Affect: normal affect Attitude: cooperative Thought process: Normal thought process present Thought content: Normal thought content present, suicidality (none), no hallucinations and Depressive thoughts present Insight: Good insight present (Psych) Judgement: Good judgement present (Psych) Assessment & Plan Assessment & Plan (1) Lumbar radicular syndrome: Code(s): M54.16 - Radiculopathy, lumbar region Category: Medical (2) Failed back syndrome, lumbar: Code(s): M96.1 - Postlaminectomy syndrome, not elsewhere classified Category: Medical (3) Lumbosacral disc herniation: Code(s): M51.27 - Other intervertebral disc displacement, lumbosacral region Category: Medical (4) Lumbar spondylosis: Code(s): M47.816 - Spondylosis without myelopathy or radiculopathy, lumbar region Category: Medical (5) Sacroiliac joint pain: Code(s): M53.3 - Sacrococcygeal disorders, not elsewhere classified Category: Medical (6) Opioid contract exists: Code(s): Z79.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 There is no evidence of misuse, abuse or diversion at this time. [employer]t reviewed. Script sent for oxycodone 5 mg QID prn with advanced date of 02/22/25. Patient has Narcan at home. Patient is one month s/p Left L5 TFESI on 01/05/[address] Cole for left sided radicular back pain with minimal relief. She is undergoing Neurosurgical evaluation today at [facility]. All questions were answered and the patient is in agreement with the plan. Follow up in one month for a pill count or sooner if needed. Medications: Refilled oxycodone Partial Fill upon patient request. 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
[2025-02-09 13:06] VITALS: BP 156/87; PULSE 55; O2SAT 98; BMI 21.5
== END 2025-02-09 13:21 | disposition home or self-care (01) ==
LOC: HO.PMC 12:59
PROVIDERS: PCP Physician Assistant; Visit Provider Nurse Practitioner Family
DX: M54.16 Radiculopathy, lumbar region (principal); M96.1 Postlaminectomy syndrome, not elsewhere classified; M51.27 Other intervertebral disc displacement, lumbosacral region; M47.816 Spondylosis without myelopathy or radiculopathy, lumbar region; M53.3 Sacrococcygeal disorders, not elsewhere classified; Z79.891 Long term (current) use of opiate analgesic
CPT/HCPCS: 99214; G2211

== ENCOUNTER 2025-02-09 13:24 | Outpatient (AMB) | payer MEDICARE, MEDICAID, SELFPAY ==
--- OUTSIDE RECORDS SUMMARY | 2025-02-09 13:32 | XMS_ITS | Clinical Summary ---
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
--- NOTE | 2025-02-09 13:33 | HO.SPINEOV ---
Intake Visit Reasons: LBP Intake Note: Ms. Grady is here today c/o Low back pain, difficulty with walking. 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 She is a very nice 69-year-old vasculopath, history of ischemic cardiomyopathy, myocardial infarction, coronary bypass, AICD, history of previous L4-5 posterior lumbar interbody fusion done by Dr. Sanders/Ced in 2016. At the time she had back pain and bilateral leg pain. She underwent the procedure and on the evening after surgery she was getting up to walk and had a myocardial infarction. She was sent to [facility] and then subsequently to [facility]. Over the course of the last 10 years since she had her surgery, she has continued to have same back pain and bilateral hip pain that she had before surgery. Unfortunately it really never did anything for her of any meaningful improvement in her back pain or leg pain. She has trialed a number of different things through the years including pain medications, remains on oxycodone. There was consideration for pain pump but again she was worried about having to go off the pain medications and did not think she could tolerate this. She underwent a cortisone block at the left L5 nerve without any improvement in her symptoms. No dedicated physical therapy done at any point along her recovery. Currently the pain is present all day, worse when she stands and walks, does get better when she sits but does not completely go away. She is frustrated with her quality of life but she is able to get up and move around the house if she takes the oxycodone. She does not go out very often to do recreational activities or do grocery shopping. If she does she has to hold onto a cart. Her granddaughter is her METAL RIVET MACHINE OPERATOR who helps her out quite a bit with activities of daily living. She is not a candidate for spinal cord stimulator. She had an MRI done at [facility] showing degenerative findings and herniated disc on the left at L5-S1. She was sent today for an evaluation. PMH: She has an extensive medical history, primarily related to vasculopathy ease and this would include myocardial infarction, ischemic cardiomyopathy with reduced ejection fraction. Status post coronary bypass grafting. The last echocardiogram states that it is 30-40%. She had AICD placed. She is on Xarelto as well. History of peripheral vascular disease, status post stenting. History of carotid stenosis. History of hypertension, high cholesterol As above she has history of lumbar fusion L4-5 with failed back syndrome, repair of left humerus fracture. She also has chronic kidney disease. Stage III I believe according to the records. Social hx: She quit smoking in 2016 when she had her 1st heart attack. She smokes marijuana every other day but does not use any other recreational drugs or alcohol Medications: Zetia, metoprolol, Lasix, Xarelto, cyclobenzaprine, oxycodone, atorvastatin and a baby aspirin Allergies: Entresto gave her hyperkalemia Physical exam: She is awake alert oriented able to stand up on her own walk down the hallways with a slightly cautious gait but not antalgic, able to get up on the examining table independently, strength and reflexes in the lower extremities normal she is a well healed incision midline as well as 2 paraspinal incisions on her back. Imaging review: There is a lumbar MRI done at [facility] showing evidence of postsurgical changes at L4-5 consistent with previous lumbar fusion, there is a slight spondylolisthesis at L3-4 as well as lateral recess stenosis which I would rate as [id number]. There is no central canal stenosis. She has degenerative disc disease at L5-S1 with a far lateral herniated disc on the left. There are x-rays done at [place] standing with flexion-extension views from 2022 showing evidence of some anterior translation of the vertebral body of L3 on L4 with flexion. There is a CT scan done at [place] showing evidence of good placement of the hardware, it is not clear to me that there is a interbody fusion at the L4-5 site. Impression: 69-year-old female with complicated medical history including significant vasculopathy is, cardiac disease, ischemic cardiomyopathy, status post CABG, AICD, peripheral vascular disease, status post L4-5 posterior lumbar interbody fusion done by Dr. Sanders and Dr. Coughlin in 2016. She had no significant improvement in her symptoms after that surgery. Unfortunately at the time of the surgery she had a myocardial infarction and had to be transferred to [facility] and then [facility] for series of treatments for heart related issues. She continues to have back pain and bilateral hip pain which will radiate down into her calves when she stands and walks. He gets better when she sits but does not completely go away. She basically maintains herself at this point on oxycodone throughout the day and that takes the edge off. She is functional in the sense that she can get around her house and do light activities but she really does not do much in the way of recreational activities, go grocery shopping or anything that involves extensive walking. Her MRI shows that she has what looks like some adjacent segment disease at L3-4 with some anterior translation with flexion on x-rays in 2022. She also has degenerative disc at L5-S1 with a far lateral disc herniation on the left. The x-rays suggests that she could have some instability at that L3-4 segment. I will repeat those x-rays. The big concern here with this patient is her overall global health and the complications that she had during her last spinal surgery. She is very nervous about undergoing any general anesthesia for obvious reasons. At this point she is not in a tremendous amount of pain and she is still functional around her house so she is not all that interested in the idea of undergoing surgery. This is perfectly reasonable given her history. She will just maintain herself on her oxycodone for now. If the pain significantly escalates we can bring her back and have further discussions, but we need to use a significant amount of caution given her history. I will see her back in 6 months just to check up on her. In the interim though I will review her films with Dr. Wheeler to see if he has any other thoughts. Thank you for allowing us to care for your patient. The total time spent with this visit with this patient was 45 minutes reviewing history, physical exam, lumbar imaging review, and implementation of treatment plan or further diagnostic testing Erlin Wheeler MD,PhD [facility] Orders: Orders XR lumbar spine 4V min Today Z98.1 - Arthrodesis status Coding Level of Care Code New Pt Level 4 (80122) Diagnoses History of lumbar fusion Z98.1
== END 2025-02-09 14:23 | disposition home or self-care (01) ==
LOC: HO.HNS 13:25
PROVIDERS: PCP Physician Assistant; Referring Provider Nurse Practitioner Family; Visit Provider Physician Assistant
DX: Z98.1 Arthrodesis status (principal)
CPT/HCPCS: 99204

== ENCOUNTER → 2025-02-09 14:30 | Outpatient (BNV) | payer MEDICARE, MEDICAID, SELFPAY | PROVIDERS: PCP Physician Assistant; Visit Provider Nuclear Medicine | DX: M43.16 Spondylolisthesis, lumbar region (principal) | CPT/HCPCS: 72110 ==

== ENCOUNTER 2025-02-28 14:35 | Outpatient (AMB) | payer MEDICARE, MEDICAID, SELFPAY ==
--- NOTE | 2025-02-28 14:49 | A.OFFVIS_ITS ---
Intake Vital Signs 02/28/25 14:50 Height 4 ft 11 in Weight 107 lb 8 oz BMI 21.7 BP 122/60 Blood Pressure Location Lt brachial Position Sitting Pulse 51 Pulse Source Pulse Oximeter Temp 97.0 F Temp Source Temporal Artery Scan Pulse Oximetry (%) 97 Oxygen Delivery Method Room Air Intake Visit Reasons: AWV Allergies sacubitril [From Entresto] Adverse Reaction (Severe, Verified 02/28/25 15:16) hyperkalemia valsartan [From Entresto] Adverse Reaction (Severe, Verified 02/28/25 15:16) hyperkalemia Medication List - Last Reconciled 02/28/25 by Iron Jin PA-C aspirin (Adult Low Dose Aspirin) 81 mg PO DAILY atorvastatin 80 mg PO DAILY blood pressure monitor As directed calcium carbonate (Oyster Shell Calcium) 500 mg PO DAILY 90 days cyclobenzaprine 10 mg PO TID PRN 30 days diphenoxylate-atropine 2.5-0.025 mg 1 tab PO BID PRN ezetimibe 10 mg PO DAILY furosemide 20 mg PO DAILY PRN metoprolol succinate ER 50 mg PO DAILY oxycodone 5 mg PO Q6H PRN 30 days rivaroxaban (Xarelto) 2.5 mg PO BID trazodone 50 mg PO BEDTIME PRN triamcinolone acetonide 0.5% 1 appl topical DAILY PRN HPI AWV HPI Details Patient is a 69-year-old female here today for an annual wellness visit. Patient has a past medical history significant for coronary artery disease, failed back syndrome, lumbar spondylosis, depression home a peripheral artery disease, carotid stenosis, hypertension. Today we discussed patient's squaxin of care going to end of life planning, comprehensive care plan which was scanned into patient's documents -->Today she she complains of not being able to sleep. Has been using trazodone 50 mg before bed though has not been effective. She would like to try a different sleeping medication. Colorectal cancer screening: Has cologaurd at home , has not done - declines Mammogram: last done in 01/2024 BIRADS1 Vaccines: Up-to-date with COVID vaccine, up-to-date with pneumonia vaccine, up-to-date with shingles and tetanus vaccines HPI Comments History of Present Illness Details reviewed past medical history- yes reviewed surgical / hospitalization history- yes reviewed current medications- yes reviewed family history- yes home safety throw rugs? grab bars? raised toilet seat? working smoke detectors? activities of daily living difficulty bathing or showering? difficulty dressing? difficulty using the toilet? difficulty getting in and out of bed? difficulty walking? receives help from other person's with any of the above tasks? instrumental activities of daily living uses telephone - gets to place out of walking distance- go shopping for groceries- repairs own meals- does own minor home maintenance- does own laundry- does own housework- manages own money- currently takes medication- end of life planning discussed advanced directives- yes advanced directives on file? discussed wishes expressed in advanced directives. fall risk have you had any falls with injuries in the past year? have you had 2 or more falls in the past year? fall risk assessment: [facility] Medical History Renal artery stenosis Heart failure with reduced ejection fraction Acute on chronic systolic (congestive) heart failure Lumbar spondylosis Ischemic cardiomyopathy COVID-19 vaccine series completed History of femoral angiogram Hiatal hernia CAD (coronary artery disease) AAA (abdominal aortic aneurysm) Hx of myocardial infarction Hypertension Peripheral vascular disease CKD (chronic kidney disease) stage 3, GFR 30-59 ml/min History of placement of internal cardiac defibrillator Cervical spondylosis Failed back syndrome, lumbar Surgical History Stented coronary artery Status post cardiac catheterization History of biliary duct stent placement 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 Sister Gynecologic cancer Social History Household Members: None Household Members Other:: Son Housing: Apartment Are you a primary tire care manager to a significant other at home: No Alcohol intake: never Comment: Pt independent in room with steady gait, refuses fall risk precautions. Patient Tobacco Use Status: Former Tobacco user Tobacco use type: Cigarette Cigarette Packs Per Day: 1 Cigarettes Per Day: 20.0 Years Smoked: 40 e-Cigarette/Vaping Use: Former Use Second Hand Smoke Exposure: Yes Substance Use Type: Marijuana Advance Directives Date on File: 07/06/21 service: No Current occupational status: disabled Current occupation: rt handed Cognitive needs: No Hearing needs: No Vision needs: Yes (Glasses) Questionnaire Medicare Wellness Checkup [age] What gender do you identify with?: female During the past 4 weeks, how much have you been bothered by emotional problems such as feeling anxious, depressed, irritable, sad or downhearted, and blue?: slightly During the past 4 weeks, has your physical & emotional health limited your social activities with family, friends, neighbors, or groups?: quite a bit During the past 4 weeks, how much bodily pain have you generally had?: severe pain During the past 4 weeks, was someone available to help you if you needed & wanted help?: yes, quite a bit During the past 4 weeks, what was the hardest physical activity you could do for at least 2 minutes?: moderate Can you get to places out of walking distance without help? (For eg., can you travel alone on buses, taxis or drive your car?): Yes Can you go shopping for groceries or clothes without someone's help?: No Can you prepare your own meals?: Yes Can you do your housework without help?: No Because of any health problems, do you need the help of another person with your personal care needs such as eating, bathing, dressing or getting around the house?: Yes Can you handle your own money without help?: Yes During the past 4 weeks, how would you rate your health in general?: fair During the past 4 weeks how have things been going for you?: pretty well Are you having difficulties driving your car?: no Do you always fasten your seat belt when you are in a car?: yes, usually During past 4 weeks, have you been bothered by the following: never: Falling or dizzy when standing up, Sexual problems?, Teeth or denture problems? and Problems using the telephone?, often: Trouble eating well? and always: Tiredness or fatigue? Have you fallen 2 or more times in the past year?: No Are you afraid of falling?: No Are you a smoker?: no During the past 4 weeks, how many drinks of wine, beer, or other alcoholic beverages did you have?: no alcohol at all Do you exercise for about 20 minutes 3 or more times a week?: no, I usually do not exercise this much Have you been given information to help with the following?: yes: Hazards in your house that might hurt you? and yes: Keeping track of your medications? How often do you have trouble taking medicines the way you have been told to take them?: I always take medicine as prescribed How confident are you that you can control & manage most of your health problems?: somewhat confident What is your race?: White Mini Mental State Exam (MMSE) Orientation What is the (year) (season) (date) (day) (month)?: year Where are we (state) (county) (town or city) (hospital) (floor)?: town or city Attention & Calculation (CHOOSE ONE) Spell WORLD backwards (DLROW): 5 letters Score Score: 7 Activity of Daily Living Bathing - sponge bath, tub bath or shower: receives no assistance (gets in/out by self, if usual bathing means Dressing - getting clothes from closets & drawers, including inner/outer garments & fasteners.: gets clothes & gets completely dressed without help Toileting - going to the 'toilet room' for urine/bowel elimination & cleaning self/arranging clothes: receives help going to toilet room, cleaning self or arranging clothes Transfer: moves in & out of bed and chair without help (may use support object) Continence: controls urination/bowel movements completely by self Feeding: feeds self without help Total Score: 0 Information obtained from: patient Using telephone: independent Traveling: independent Preparing meals: needs assistance Housework: needs assistance Taking medicine: independent Managing money: independent PHQ-9 Over the last 2 weeks, how often have you been bothered by any of the following problems? 1. Little interest or pleasure in doing things: several days 2. Feeling down, depressed, or hopeless: several days 3. Trouble falling or staying asleep, or sleeping too much: nearly every day 4. Feeling tired or having little energy: nearly every day 5. Poor appetite or overeating: nearly every day 6. Feeling bad about yourself - or that you are a failure or have let yourself or your family down: not at all 7. Trouble concentrating on things, such as reading the newspaper or watching television: several days 8. Moving or speaking so slowly that other people could have noticed. Or the opposite - being so fidgety or restless that you have been moving around a lot more than usual: not at all 9. Thoughts that you would be better off or of hurting yourself in some way: not at all Total score: 12 Depression Screening Interpretation: Positive Depression Screening Done: Yes 60139 - PHQ-9 Billing: Yes Source: Developed by Drs. Unruly Jones, Yanna Perez, Mckay Doty and colleagues, with an educational daev from [employer]. Physical Exam Vital Signs: Last Vital Signs Temp 97.0 F 02/28/25 14:50 Pulse 51 02/28/25 14:50 BP 122/60 02/28/25 14:50 Pulse Ox 97 02/28/25 14:50 Oxygen Delivery Method Room Air 02/28/25 14:50 BMI result Body Mass Index 21.7 HEENT Other: hearing screening whisper test- Eyes Other: vision screening- 20 20 OS OD OU using corrective lenses Other: urinary incontinence? No Neuro Other: balance Romberg- normal tandem walk test- able walk-in turned test- able rise from sit to stand- within 2 seconds Assessment & Plan Assessment & Plan (1) Annual wellness visit: Code(s): Z00.00 - Encounter for general adult medical examination without abnormal findings Plan: As per HPI (2) Insomnia: Code(s): G47.00 - Insomnia, unspecified Qualifiers: Insomnia type: primary Qualified Code(s): F51.01 - Primary insomnia Plan: As per HPI patient has been trouble sleeping and trazodone does not seem to be helpful. Has tried hydroxyzine in the past. Will like to try a new sleeping medication thus will try low-dose Seroquel before bed and up titrate per response. Medications: New quetiapine (Seroquel) 25 mg PO BEDTIME 30 tabs 0RF 30 days G47.00 - Insomnia, unspecified Quality Reporting (2019) Depression/Bipolar (159/160/161/177) PHQ-9: Total score: 12 Coding Level of Care Code Medicare First (G0438) Est Pt Level 3 (76641) Diagnoses Annual wellness visit Z00.00 Primary insomnia F51.01 Insomnia type: primary Additional Codes PHQ-9 - 72400 - PHQ-9 Billing: Yes ([id number]) Advance Care Planning Advance Care Planning discussion: Exists, not on file Date of discussion: 02/28/25 Forms completed: NILESH
[2025-02-28 14:50] VITALS: BP 122/60; PULSE 51; TEMP 36.1; O2SAT 97; BMI 21.7
--- OUTSIDE RECORDS SUMMARY | 2025-02-28 17:31 | XMS_ITS | Clinical Summary ---
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
== END 2025-02-28 15:44 | disposition home or self-care (01) ==
LOC: HO.HMCH 14:35
PROVIDERS: PCP Physician Assistant; Visit Provider Physician Assistant
DX: Z00.00 Encounter for general adult medical examination without abnormal findings (principal); F51.01 Primary insomnia

== ENCOUNTER → 2025-02-28 14:35 | Outpatient (BNVA) | payer MEDICARE, MEDICAID, SELFPAY | PROVIDERS: PCP Physician Assistant; Visit Provider Physician Assistant | DX: Z00.00 Encounter for general adult medical examination without abnormal findings (principal); F51.01 Primary insomnia; G47.00 Insomnia, unspecified; Z87.891 Personal history of nicotine dependence | CPT/HCPCS: 96127; 99212 ==

== ENCOUNTER 2025-03-09 13:10 | Outpatient (AMB) | payer MEDICARE, MEDICAID, SELFPAY ==
--- NOTE | 2025-03-09 13:11 | A.OFFVIS_ITS ---
Intake Visit Reasons: Pill Count Intake Note: Luci comes in today for a pill count to oxycodone, patient should have 56 tablets and presents with 69 tablets which she last took today 03/09/25 at 9:30am. Pain today 02/28 Last Pattern Grader Required: No Accompanied by: Self / Same As Patient Allergies sacubitril (From Entresto) Adverse Reaction (Severe, Verified 03/09/25 13:21) hyperkalemia valsartan (From Entresto) Adverse Reaction (Severe, Verified 03/09/25 13:21) hyperkalemia HPI Comments Details: Patient presents today for a pill count. Patient is supposed to have #56 pills, in her possession has #60 pills. This demonstrates a responsible attitude in regards to the medication regimen. Patient reports mild analgesia, with no noted side effects. She also takes Seroquel for sleep and cyclobenzaprine for muscle spasms with partial relief. Patient continues to endorse significant low back pain with radiation into her left lower extremity. She underwent left L5 TFESI on 01/05/[address] Cole with minimal relief so far. The pain radiates from her lower back to the left leg, particularly affecting the hip and posterior thigh. She indicates that pain medications provide more relief than the injection. Her medical history includes a lumbar spinal fusion surgery, described as having a cage in her back, and the presence of an implantable cardiac defibrillator (ICD). The patient is limited in walking and standing. Patient is seeing our colleagues at [facility] for surgical evaluation with follow up in July. Denies any fever, dizziness, chest pain, shortness of breaths, constipation, nausea, sedation, dizziness, or urinary retention. Past Procedures: 01/05/25: Left L5 TFESI--minimal relief for >1 week [facility] Medical History Renal artery stenosis Heart failure with reduced ejection fraction Acute on chronic systolic (congestive) heart failure Lumbar spondylosis Ischemic cardiomyopathy COVID-19 vaccine series completed History of femoral angiogram Hiatal hernia CAD (coronary artery disease) AAA (abdominal aortic aneurysm) Hx of myocardial infarction Hypertension Peripheral vascular disease CKD (chronic kidney disease) stage 3, GFR 30-59 ml/min History of placement of internal cardiac defibrillator Cervical spondylosis Failed back syndrome, lumbar Surgical History Stented coronary artery Status post cardiac catheterization History of biliary duct stent placement 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 Sister Gynecologic cancer Social History Household Members: None Household Members Other:: Son Housing: Apartment Are you a primary child care counselor to a significant other at home: No Alcohol intake: never Comment: Pt independent in room with steady gait, refuses fall risk precautions. Patient Tobacco Use Status: Former Tobacco user Tobacco use type: Cigarette Cigarette Packs Per Day: 1 Cigarettes Per Day: 20.0 Years Smoked: 40 e-Cigarette/Vaping Use: Former Use Second Hand Smoke Exposure: Yes Substance Use Type: Marijuana Advance Directives Date on File: 07/06/21 service: No Current occupational status: disabled Current occupation: rt handed Cognitive needs: No Hearing needs: No Vision needs: Yes (Glasses) Review of Systems Const All systems reviewed & are unremarkable except as noted in HPI and below Physical Exam On exam today: Appears afebrile. Moderate distress due to pain. Alert and oriented. Mood and affect appropriate. Follows and participates in conversation appropriately. Respiratory effort is unlabored. No cough. Able to transition from sit to stand unassisted, reports imbalance on LLE due to pain. General: Yes no CVA tenderness Back/Spine/Pelvis Other: Limited lumbar ROM due to pain. Lumbar extension and flexion forward reproduces moderate pain. Painful facet loading bilaterally. Back: no CVA tenderness Cervical Spine: loss of normal cervical lordosis, cervical muscular tenderness, pain with cervical ROM, No Cervical spine scars present, cervical spasm and No Cervical spine tenderness Thoracic/Lumbar Spine: thoracic and lumbar spine normal to inspection, Thoracic/lumbar spine scar(s), Lasegue's sign positive on the left and diffuse, pain with thoraco-lumbar ROM, paraspinal muscle tenderness, thoraco-lumbar ROM limited, No thoracic spinal tenderness and lumbar spinal tenderness (L4-S1) Pelvis: buttock tenderness on the left Sacroiliac joints: on the right nontender and on the left (+Jimbo's, +Stinchfield) tender to palpation Extrem General: Yes capillary refill normal, Yes no clubbing, cyanosis or edema and Yes no calf tenderness Psych Appearance: grossly normal and well kempt Mental Status: mental status grossly normal Speech and movement: Normal speech and movement present and Clear speech present Affect: normal affect Attitude: cooperative Thought process: Normal thought process present Thought content: Normal thought content present, suicidality (none), no hallucinations and Depressive thoughts present Insight: Good insight present (Psych) Judgement: Good judgement present (Psych) Results Reviewed Results Reviewed: XR LUMBOSACRAL SPINE WITH OBLIQUES 04/27/23 CLINICAL INFORMATION: Postlaminectomy syndrome. COMPARISON: Radiographs dated 05/10/2019. TECHNIQUE: AP, both oblique, and lateral (neutral, flexion and extension) views of the lumbar spine. Lateral view of the lumbosacral junction. FINDINGS: There is bony demineralization. At L3-L4, there is a 4 mm anterolisthesis. There is well-maintained alignment status-post L4-L5 posterior fusion and discectomy, with intact posterior fixator rods, pedicular screws and disc spacer. No hardware failure or loosening is seen. There is no acute fracture or spondylolisthesis. No instability is seen with flexion or extension. No spondylolysis defect is seen on the oblique views. There are aortoiliac atherosclerotic calcifications. Iliac stent material is noted. IMPRESSION: 1. There is well-maintained alignment status-post L4-L5 posterior fusion and discectomies. No hardware failure or loosening is seen. 2. There is mild degenerative disc disease at L3-L4. 3. No instability is seen with flexion or extension. XR SACROILIAC JOINTS 04/27/23 CLINICAL INFORMATION: Sacrococcygeal disorders. COMPARISON: Hip radiographs dated 06/19/2021 and 11/06/2017. FINDINGS: Bones and soft tissues are normal. No fracture. Alignment is anatomic. Sacroiliac joint spaces are well-maintained without erosions or surrounding sclerosis. The acetabular joint spaces are well-maintained. The pubic symphysis is intact. Lumbar orthopedic hardware and right iliac stent material are noted. IMPRESSION: Normal sacroiliac joints. BONE DENSITOMETRY 03/22/24 Osteopenia based on the lowest T-score value of -2.3 in the total femur applying World Health Organization criteria. Assessment & Plan Assessment & Plan (1) Lumbar radicular syndrome: Code(s): M54.16 - Radiculopathy, lumbar region Category: Medical (2) Failed back syndrome, lumbar: Code(s): M96.1 - Postlaminectomy syndrome, not elsewhere classified Category: Medical (3) Lumbosacral disc herniation: Code(s): M51.27 - Other intervertebral disc displacement, lumbosacral region Category: Medical (4) Lumbar spondylosis: Code(s): M47.816 - Spondylosis without myelopathy or radiculopathy, lumbar region Category: Medical (5) Sacroiliac joint pain: Code(s): M53.3 - Sacrococcygeal disorders, not elsewhere classified Category: Medical (6) Opioid contract exists: Code(s): 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 There is no evidence of misuse, abuse or diversion at this time. MassPat reviewed. Script sent for increased dose of oxycodone 5 mg from QID to 5x/day prn with advanced date of 03/20/25. Patient has Narcan at home. Patient underwent Left L5 TFESI on 01/05/[address] Cole for left sided radicular back pain with minimal relief. She was seen at [facility] for Neurosurgical evaluation last month and will follow up with them in July. All questions were answered and the patient is in agreement with the plan. Follow up in one month for a pill count or sooner if needed. Medications: Refilled 2 oxycodone Partial Fill upon patient request. 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
--- OUTSIDE RECORDS SUMMARY | 2025-03-09 14:20 | XMS_ITS | Clinical Summary ---
Author Organization [facility] Address [address] [place] [address] Care Team Providers Care Headmaster/Mistress Name Role Phone Unavailable Primary Care Provider [...] to complete [place] [id number] [facility]
== END 2025-03-09 13:39 | disposition home or self-care (01) ==
PROVIDERS: PCP Physician Assistant; Visit Provider Nurse Practitioner Family
DX: M54.16 Radiculopathy, lumbar region (principal); M96.1 Postlaminectomy syndrome, not elsewhere classified; M51.27 Other intervertebral disc displacement, lumbosacral region; M47.816 Spondylosis without myelopathy or radiculopathy, lumbar region; M53.3 Sacrococcygeal disorders, not elsewhere classified; Z79.891 Long term (current) use of opiate analgesic
CPT/HCPCS: 99214; G2211

== ENCOUNTER → 2025-03-09 13:10 | Outpatient (BNVA) | payer MEDICARE, MEDICAID, SELFPAY | PROVIDERS: PCP Physician Assistant; Visit Provider Nurse Practitioner Family | DX: Z51.81 Encounter for therapeutic drug level monitoring (principal); M54.16 Radiculopathy, lumbar region; M96.1 Postlaminectomy syndrome, not elsewhere classified; M51.27 Other intervertebral disc displacement, lumbosacral region; M47.816 Spondylosis without myelopathy or radiculopathy, lumbar region; M53.3 Sacrococcygeal disorders, not elsewhere classified; Z79.891 Long term (current) use of opiate analgesic | CPT/HCPCS: 99212 ==

== ENCOUNTER → 2025-03-22 23:59 | Outpatient (BNV) | payer MEDICARE, MEDICAID, SELFPAY ==
--- NOTE | 2025-03-27 13:34 | A.OFFVIS_ITS ---
Intake Visit Reasons: REmote ICD check- [facility] Allergies sacubitril (From Entresto) Adverse Reaction (Severe, Verified 03/09/25 13:21) hyperkalemia valsartan (From Entresto) Adverse Reaction (Severe, Verified 03/09/25 13:21) hyperkalemia [facility] Medical History Renal artery stenosis Heart failure with reduced ejection fraction Acute on chronic systolic (congestive) heart failure Lumbar spondylosis Ischemic cardiomyopathy COVID-19 vaccine series completed History of femoral angiogram Hiatal hernia CAD (coronary artery disease) AAA (abdominal aortic aneurysm) Hx of myocardial infarction Hypertension Peripheral vascular disease CKD (chronic kidney disease) stage 3, GFR 30-59 ml/min History of placement of internal cardiac defibrillator Cervical spondylosis Failed back syndrome, lumbar Surgical History Stented coronary artery Status post cardiac catheterization History of biliary duct stent placement 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 Sister Gynecologic cancer Social History Household Members: None Household Members Other:: Son Housing: Apartment Are you a primary pet care assistant to a significant other at home: No Alcohol intake: never Comment: Pt independent in room with steady gait, refuses fall risk precautions. Patient Tobacco Use Status: Former Tobacco user Tobacco use type: Cigarette Cigarette Packs Per Day: 1 Cigarettes Per Day: 20.0 Years Smoked: 40 e-Cigarette/Vaping Use: Former Use Second Hand Smoke Exposure: Yes Substance Use Type: Marijuana Advance Directives Date on File: 07/06/21 service: No Current occupational status: disabled Current occupation: rt handed Cognitive needs: No Hearing needs: No Vision needs: Yes (Glasses) Office Procedures Cardiac Device Check Cardiac Device Check Details: Remote ICD report generated 03/22/2025. ICD function is adequate [id number] Cardiac Interrogation, implant defibrillator w/interim Procedure code (CPT) selection complete Assessment & Plan Assessment & Plan (1) ICD (implantable cardioverter-defibrillator) in place: Code(s): Z95.810 - Presence of automatic (implantable) cardiac defibrillator Category: Medical Plan: See above Coding Level of Care Code Procedure Only Diagnoses ICD (implantable cardioverter-defibrillator) in place Z95.810 CPT Codes Cardiac Device Check - Cardiac Device 13: [id number] Cardiac Interrogation, implant defibrillator w/interim ([id number])
== END ==
PROVIDERS: PCP Physician Assistant; Visit Provider Internal Medicine Cardiovascular Disease
DX: Z45.02 Encounter for adjustment and management of automatic implantable cardiac defibrillator (principal)
CPT/HCPCS: 93295

== ENCOUNTER 2025-03-28 14:22 | Outpatient (AMB) | payer MEDICARE, MEDICAID, SELFPAY ==
--- NOTE | 2025-03-28 14:50 | MHC.OFFVIS ---
Intake Visit Reasons: OV f/u-Left basal jt injection last inj 09/27/24 Intake Note: Luci 69 yr old female presents today for her Left basal joint s/p injection 09/27/24. States last injection helped relief pain for about 6 months and would like to repeat injection today. Allergies sacubitril (From Entresto) Adverse Reaction (Severe, Verified 03/28/25 14:56) hyperkalemia valsartan (From Entresto) Adverse Reaction (Severe, Verified 03/28/25 14:56) hyperkalemia HPI HPI OV f/u-Left basal jt injection last inj 09/27/24: Details: Luci is a 68 year old right hand dominant woman with known left basal joint OA.She was last seen, and injected, on 09/27/24 She says her last injection was very helpful and she owould like to repeat today. She finds good relief from wearing her comfort cool brace. She states she takes Oxycodone for her back pain. 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 She smokes weed primarily at night for pain relief, relaxation, and to boost her appetite. [facility] Medical History Renal artery stenosis Heart failure with reduced ejection fraction Acute on chronic systolic (congestive) heart failure Lumbar spondylosis Ischemic cardiomyopathy COVID-19 vaccine series completed History of femoral angiogram Hiatal hernia CAD (coronary artery disease) AAA (abdominal aortic aneurysm) Hx of myocardial infarction Hypertension Peripheral vascular disease CKD (chronic kidney disease) stage 3, GFR 30-59 ml/min History of placement of internal cardiac defibrillator Cervical spondylosis Failed back syndrome, lumbar Surgical History Stented coronary artery Status post cardiac catheterization History of biliary duct stent placement 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 Sister Gynecologic cancer Social History Household Members: None Household Members Other:: Son Housing: Apartment Are you a primary resident care manager to a significant other at home: No Alcohol intake: never Comment: Pt independent in room with steady gait, refuses fall risk precautions. Patient Tobacco Use Status: Former Tobacco user Tobacco use type: Cigarette Cigarette Packs Per Day: 1 Cigarettes Per Day: 20.0 Years Smoked: 40 e-Cigarette/Vaping Use: Former Use Second Hand Smoke Exposure: Yes Substance Use Type: Marijuana Advance Directives Date on File: 07/06/21 service: No Current occupational status: disabled Current occupation: rt handed Cognitive needs: No Hearing needs: No Vision needs: Yes (Glasses) Physical Exam Const General: no acute distress and alert Orientation/consciousness: patient oriented x3 Neuro General: patient oriented x3 Extrem Other: Evaluation of Left Upper Extremity: The patient is alert, oriented, and in no acute distress Neuro: Median, Ulnar, Radial nerves motor and sensory intact and sensation is normal to the tips of all digits Vascular: Cap refill brisk ROM: She can make a fist and extend all of her digits. She can oppose her thumb to all digits. She is most tender about the basal joint of the left thumb. 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 Left Basal joint arthritis, S/P repeat injections Date of Injections: 03/28/25, 09/27/24, 05/24/24, 02/03/24, 09/23/23, 01/21/23, 07/07/22, 01/29/22 I educated her about this condition I discussed treatment options, including the possibility of surgery in the future She says her most recent injection gave her relief for only about a week, where his previous injections gave her good relief for several months After discussing these options, the patient would like to proceed with a repeat injection today I discussed activity modification, they should limit or avoid any heavy or repetitive pinching or gripping activities She should continue to wear her comfort cool brace with daily activities Injection #1 : The risks and benefits of a steroid injection including but not limited to risk of damage to blood vessels, nerve, tendon, infection, skin bleaching, persistent or worsening pain, and failure to improve symptoms were discussed with the patient and they wish to proceed with the steroid injection. Once consent was obtained the skin over the dorsum of the Left basal joint was sterilely prepped. The joint was then injected with a combination of 1 mL of (40 mg/ml} Depo-Medrol and 1% plain Lidocaine. The patient appears to have tolerated the procedure well and with no complications. She had good early relief before leaving clinic today. She knows that they may not have another steroid injection into this joint for least 4 months. Please note that this patient has a significant cardiac condition, and evidently had a major heart attack following spine surgery. She has an implantable cardiac defibrillator in place, and is on Xarelto. She also has other medical conditions that make surgery less attractive. She says she was told that she should only have surgery if it is absolutely necessary. Recommended the use of Tylenol or Ibuprofen OTC to help with relief once the numbing medication wears off. Follow up will be in about 4 months for another injection. She will call the office if she is not needing the injection at that time. Scribed for Gina Wallace MD by Nader Staples director of medical staff services, on 03/28/25 at 3:00 PM, EST. Coding Level of Care Code Est Pt Level 3 (34342) Diagnoses Arthritis of carpometacarpal (CMC) joint of left thumb M18.12 Opioid contract exists Z79.891 CPT Codes Fracture Care - Fracture Billing Code: Fracture Billing Code ([id number])
--- OUTSIDE RECORDS SUMMARY | 2025-03-28 15:15 | XMS_ITS | Patient Health Record ---
Author Organization [facility] Address [address] [place] [address] Care Team Providers Care Metalizer Name Role Phone Nhan Sigala Primary Care Provider Unruly Negron Unavailable [phone] Reason For Referral No Information Medications Medication SIG (Take, Route, Frequency, Duration) Notes Start Date End Date Status Gabapentin 300 MG 6 capsule before bed time Orally daily Active oxyCODONE HCl 5 MG 1 tablet as needed O rally QID Active Aspir-81 81 MG 1 tablet Orally Once a day Active Magnesium 500 MG 1 tablet with a meal Orally Once a day Active Tylenol 325 MG 2 tablets as needed Orally every 6 hrs Active Clopidogrel Bisulfate 75 MG 1 tablet Ora lly Once a day Active Atorvastatin Calcium 40 MG 1 tablet Oral ly Once a day Active Metoprolol Succinate ER 50 MG 1 tablet Orally Once a day Active Lisinopril 10 MG 1 tablet Orally Once a day Active Social History Tobacco Use: Social History Observation Description Date Details (start date - stop date) Current Smoker NA - NA Tobacco Use/Smoking Question Answer Notes Patient is a current smoker How often do you smoke cigarettes? every day How many cigarettes a day do you smoke? 6-10 How soon after you wake up d o you smoke your first cigarette? within 5 minutes Are you interested in quitting? Thinking about q uitting Alcohol Screen Question Answer Notes Did you have a drink contain ing alcohol in the past year? Yes How often did you have a dri nk containing alcohol in the past year? Monthly or less (1 point) How many drinks did you have on a typical day when you were drinking in the past year? 1 or 2 drinks (0 point) How often did you have 6 or more drinks on one occasion in the past year? Never (0 point) Points 1 Interpretation Negative Section Notes: Smoker; no sig. alcohol Problems Problem Type SNOMED Code ICD Code Onset Dates Problem Status W/U Status Risk Notes Problem [id number] Encounter for screening for malignant neoplasm of colon (Z12.11) Active confirmed Problem [id number] Abnormal CT scan, stomach (R93.3) Active confirmed Plan Of Treatment Future Test Test Name Order Date UPPER GI ENDOSCOPY 08/05/2017 Insurance Providers Payer Name Payer Address Payer Phone Subscriber Number Group Number Insured Name Patient Relationship to Insured Coverage Start Date Coverage End Date MEDICAID OF [employer] [address] [place] [phone] [id number] JEANNIE YOST Self - patient is the insured Medical (General) History Medical History History ICD Code OR-01/2016--3V-CABG; had a stent put in a pprox 2010 Hypertension Denies DM,CVA,Lung disease Back pain Hyperlipidemia PVD--stent in right leg Reports an andominal aortic aneurysm Surgical History Surgery Date(Month/Year) Back surgery 2015 Cyst removal-ovary 1985 2V-CABG 2015 Broken left humerus--has a franci in place 2010
--- OUTSIDE RECORDS SUMMARY | 2025-03-28 15:15 | XMS_ITS | Clinical Summary ---
Author Organization [facility] Address [address] [place] [address] Care Team Providers Care Hvac Installer Name Role Phone Unavailable Primary Care Provider [...] 12/08/2020, Additional history exists Influenza Vaccine (#1) 2025 , 06/18/2021, 07/02/2020, Additional history exists Pneumococcal [...] age to complete this topic Insurance [place] [address] [place] [id number] [facility]
== END 2025-03-28 15:17 | disposition home or self-care (01) ==
LOC: HO.HOS 14:23
PROVIDERS: PCP Physician Assistant; Visit Provider Orthopaedic Surgery
DX: M18.12 Unilateral primary osteoarthritis of first carpometacarpal joint, left hand (principal); Z79.891 Long term (current) use of opiate analgesic
CPT/HCPCS: 20600; 99213

== ENCOUNTER → 2025-03-28 14:22 | Outpatient (BNVA) | payer MEDICARE, MEDICAID, SELFPAY | PROVIDERS: PCP Physician Assistant; Visit Provider Orthopaedic Surgery | DX: M18.12 Unilateral primary osteoarthritis of first carpometacarpal joint, left hand (principal); F12.90 Cannabis use, unspecified, uncomplicated; Z79.891 Long term (current) use of opiate analgesic | CPT/HCPCS: 20600; 99212; J1010; J2003 ==

== ENCOUNTER 2025-04-06 11:25 | Outpatient (AMB) | payer MEDICARE, MEDICAID, SELFPAY ==
--- NOTE | 2025-04-06 11:27 | A.OFFVIS_ITS ---
Vital Signs 3 04/06/25 11:38 Height 4 ft 11 in Weight 105 lb 6 oz BMI 21.3 BP 156/67 H Blood Pressure Location Rt brachial Position Sitting Pulse 63 Pulse Source Pulse Oximeter Pulse Oximetry (%) 96 Oxygen Delivery Method Room Air Intake Visit Reasons: PILL COUNT/ random UDS Intake Note: Luci comes in today for a pill count to oxycodone, patient should have 22 tablets and presents with 66 tablets which she last took today 04/06/25 at 11am. Pain today 03/30. Patient will also have a random UDS done in the office due to lab being closed today. Inspector Firearms Required: No Accompanied by: Self / Same As Patient Allergies sacubitril (From Entresto) Adverse Reaction (Severe, Verified 04/06/25 11:42) hyperkalemia valsartan (From Entresto) Adverse Reaction (Severe, Verified 04/06/25 11:42) hyperkalemia HPI Comments Details: Patient presents today for a pill count. Patient is supposed to have #22 pills, in her possession has #66 pills. This demonstrates a responsible attitude in regards to the medication regimen. Patient reports adequate analgesia with recent increase up to 5 tabs of oxycodone per day, with no noted side effects. Patient reports she has been taking 4 pills on most days and 5 pills on days with significant flare up in her low back pain. She also takes Seroquel for sleep and cyclobenzaprine for muscle spasms with partial relief. Patient recent underwent therapeutic injection for left basal joint OA through [facility] on 03/28/25 with good pain relief. Denies any fever, dizziness, chest pain, shortness of breaths, constipation, nausea, sedation, dizziness, or urinary retention. Past Procedures: 01/05/25: Left L5 TFESI--minimal relief for >1 week [facility] Medical History Renal artery stenosis Heart failure with reduced ejection fraction Acute on chronic systolic (congestive) heart failure Lumbar spondylosis Ischemic cardiomyopathy COVID-19 vaccine series completed History of femoral angiogram Hiatal hernia CAD (coronary artery disease) AAA (abdominal aortic aneurysm) Hx of myocardial infarction Hypertension Peripheral vascular disease CKD (chronic kidney disease) stage 3, GFR 30-59 ml/min History of placement of internal cardiac defibrillator Cervical spondylosis Failed back syndrome, lumbar Surgical History Stented coronary artery Status post cardiac catheterization History of biliary duct stent placement 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 Sister Gynecologic cancer Social History Household Members: None Household Members Other:: Son Housing: Apartment Are you a primary manager managed care to a significant other at home: No Alcohol intake: never Comment: Pt independent in room with steady gait, refuses fall risk precautions. Patient Tobacco Use Status: Former Tobacco user Tobacco use type: Cigarette Cigarette Packs Per Day: 1 Cigarettes Per Day: 20.0 Years Smoked: 40 e-Cigarette/Vaping Use: Former Use Second Hand Smoke Exposure: Yes Substance Use Type: Marijuana Advance Directives Date on File: 07/06/21 service: No Current occupational status: disabled Current occupation: rt handed Cognitive needs: No Hearing needs: No Vision needs: Yes (Glasses) Review of Systems Const All systems reviewed & are unremarkable except as noted in HPI and below Physical Exam Vital Signs: Last Vital Signs Pulse 63 04/06/25 11:38 BP 156/67 H 04/06/25 11:38 Pulse Ox 96 04/06/25 11:38 Oxygen Delivery Method Room Air 04/06/25 11:38 BMI result Body Mass Index 21.3 On exam today: Appears afebrile. Alert and oriented. Mood and affect appropriate. Follows and participates in conversation appropriately. Respiratory effort is unlabored. No cough. Able to transition from sit to stand unassisted. Ambulates with slow, mildly antalgic gait. No limping. General: Yes no CVA tenderness Back/Spine/Pelvis Other: Limited lumbar ROM due to pain. Lumbar extension and flexion forward reproduces moderate pain. Painful facet loading bilaterally. Back: no CVA tenderness Cervical Spine: loss of normal cervical lordosis, cervical muscular tenderness, pain with cervical ROM, No Cervical spine scars present, cervical spasm and No Cervical spine tenderness Thoracic/Lumbar Spine: thoracic and lumbar spine normal to inspection, Thoracic/lumbar spine scar(s), Lasegue's sign positive on the left and diffuse, pain with thoraco-lumbar ROM, paraspinal muscle tenderness, thoraco-lumbar ROM limited, No thoracic spinal tenderness and lumbar spinal tenderness (L4-S1) Pelvis: buttock tenderness on the left Sacroiliac joints: on the right nontender and on the left (+Jimbo's, +Stinchfield) tender to palpation Extrem General: Yes capillary refill normal, Yes no clubbing, cyanosis or edema and Yes no calf tenderness Psych Appearance: grossly normal and well kempt Mental Status: mental status grossly normal Speech and movement: Normal speech and movement present and Clear speech present Affect: normal affect Attitude: cooperative Thought process: Normal thought process present Thought content: Normal thought content present, suicidality (none), no hallucinations and Depressive thoughts present Insight: Good insight present (Psych) Judgement: Good judgement present (Psych) Results Reviewed Results Reviewed: XR LUMBOSACRAL SPINE WITH OBLIQUES 04/27/23 CLINICAL INFORMATION: Postlaminectomy syndrome. COMPARISON: Radiographs dated 05/10/2019. TECHNIQUE: AP, both oblique, and lateral (neutral, flexion and extension) views of the lumbar spine. Lateral view of the lumbosacral junction. FINDINGS: There is bony demineralization. At L3-L4, there is a 4 mm anterolisthesis. There is well-maintained alignment status-post L4-L5 posterior fusion and discectomy, with intact posterior fixator rods, pedicular screws and disc spacer. No hardware failure or loosening is seen. There is no acute fracture or spondylolisthesis. No instability is seen with flexion or extension. No spondylolysis defect is seen on the oblique views. There are aortoiliac atherosclerotic calcifications. Iliac stent material is noted. IMPRESSION: 1. There is well-maintained alignment status-post L4-L5 posterior fusion and discectomies. No hardware failure or loosening is seen. 2. There is mild degenerative disc disease at L3-L4. 3. No instability is seen with flexion or extension. XR SACROILIAC JOINTS 04/27/23 CLINICAL INFORMATION: Sacrococcygeal disorders. COMPARISON: Hip radiographs dated 06/19/2021 and 11/06/2017. FINDINGS: Bones and soft tissues are normal. No fracture. Alignment is anatomic. Sacroiliac joint spaces are well-maintained without erosions or surrounding sclerosis. The acetabular joint spaces are well-maintained. The pubic symphysis is intact. Lumbar orthopedic hardware and right iliac stent material are noted. IMPRESSION: Normal sacroiliac joints. BONE DENSITOMETRY 03/22/24 Osteopenia based on the lowest T-score value of -2.3 in the total femur applying World Health Organization criteria. Assessment & Plan Assessment & Plan (1) Lumbar radicular syndrome: Code(s): M54.16 - Radiculopathy, lumbar region Category: Medical (2) Failed back syndrome, lumbar: Code(s): M96.1 - Postlaminectomy syndrome, not elsewhere classified Category: Medical (3) Lumbosacral disc herniation: Code(s): M51.27 - Other intervertebral disc displacement, lumbosacral region Category: Medical (4) Lumbar spondylosis: Code(s): M47.816 - Spondylosis without myelopathy or radiculopathy, lumbar region Category: Medical (5) Sacroiliac joint pain: Code(s): M53.3 - Sacrococcygeal disorders, not elsewhere classified Category: Medical (6) Opioid contract exists: Code(s): Z79.891 - assisted (current) use of opiate analgesic Category: Medical Plan Patient has shown accountability for her medication regimen and the pill counts were accurate. There is no evidence of misuse, abuse or diversion at this time. MassPat reviewed. Script sent for increased dose of oxycodone 5 mg from QID to 5x/day prn with advanced date of 04/18/25. Refill sent for Narcan. Patient underwent Left L5 TFESI on 01/05/[address] Cole for left sided radicular back pain with minimal relief. She was seen at [facility] for Neurosurgical evaluation last month and will follow up with them in July. All questions were answered and the patient is in agreement with the plan. Follow up in one month for a pill count or sooner if needed. Medications: Refilled 2 oxycodone 5 mg orally 1-2 tablets every 6 hours up to 5 times per day PRN; Partial Fill upon patient request. 150 tabs 0RF pain (scale score 7-10) 30 days MDD 5 M47.816 - Spondylosis without myelopathy or radiculopathy, lumbar region, M96.1 - Postlaminectomy syndrome, not elsewhere classified, Z79.891 - manager terminal (current) use of opiate analgesic naloxone 4 mg/actuation (Narcan) spray 1 dose into ONE nostril; alternate nostrils w each dose until help arrives 4 mg intranasal Q2M PRN 2 ea 0RF opioid overdose Z79.891 - manager terminal (current) use of opiate analgesic Coding Level of Care Code Est Pt Level 4 (80281) Complex EM visit Add On G2211 Diagnoses Lumbar radicular syndrome M54.16 Failed back syndrome, lumbar M96.1 Lumbosacral disc herniation M51.27 Lumbar spondylosis M47.816 Sacroiliac joint pain M53.3 Opioid contract exists Z79.891
[2025-04-06 11:38] VITALS: BP 156/67; PULSE 63; O2SAT 96; BMI 21.3
--- OUTSIDE RECORDS SUMMARY | 2025-04-06 12:13 | XMS_ITS | Clinical Summary ---
Author Organization [facility] Address [address] [place] [address] Care Team Providers Care Director Of Entertainment Name Role Phone Unavailable Primary Care Provider [...] to [place] [id number] [facility]
--- OUTSIDE RECORDS SUMMARY | 2025-04-06 12:13 | XMS_ITS | Patient Health Record ---
Author Organization [facility] Address [address] [place] [address] Care Team Providers Care Hot Walker Name Role Phone Nhan Sigala Primary Care Provider Unruly Negron Unavailable [phone] Reason For Referral No Information Medications Medication [...] Problem Status W/U Status Risk Notes Problem [id number] Encounter for screening for malignant neoplasm of colon (Z12.11) Active confirmed Problem [id number] Abnormal CT scan, stomach (R93.3) Active confirmed Plan Of Treatment Future Test Test Name Order Date UPPER GI ENDOSCOPY 08/05/2017 Insurance Providers Payer Name Payer Address Payer Phone Subscriber Number Group Number Insured Name Patient Relationship to Insured Coverage Start Date Coverage End Date MEDICAID OF [employer] [address] [place] [phone] [id number] JEANNIE YOST Self - patient is the insured Medical (General) History Medical History History ICD Code WY-01/2016--3V-CABG; had a stent put in a pprox 2010 Hypertension Denies DM,CVA,Lung disease Back pain Hyperlipidemia PVD--stent in right leg Reports an andominal aortic aneurysm Surgical History Surgery Date(Month/Year) Back surgery 2015 Cyst removal-ovary 1985 2V-CABG 2015 Broken left humerus--has a franci in place 2010
== END 2025-04-06 11:51 | disposition home or self-care (01) ==
LOC: HO.PMC 11:26
PROVIDERS: PCP Physician Assistant; Visit Provider Nurse Practitioner Family
DX: M54.16 Radiculopathy, lumbar region (principal); M96.1 Postlaminectomy syndrome, not elsewhere classified; M51.27 Other intervertebral disc displacement, lumbosacral region; M47.816 Spondylosis without myelopathy or radiculopathy, lumbar region; M53.3 Sacrococcygeal disorders, not elsewhere classified; Z79.891 Long term (current) use of opiate analgesic
CPT/HCPCS: 99214; G2211

== ENCOUNTER → 2025-04-06 11:25 | Outpatient (BNVA) | payer MEDICARE, MEDICAID, SELFPAY | PROVIDERS: PCP Physician Assistant; Visit Provider Nurse Practitioner Family | DX: Z51.81 Encounter for therapeutic drug level monitoring (principal); M54.16 Radiculopathy, lumbar region; M96.1 Postlaminectomy syndrome, not elsewhere classified; M51.27 Other intervertebral disc displacement, lumbosacral region; M47.816 Spondylosis without myelopathy or radiculopathy, lumbar region; M53.3 Sacrococcygeal disorders, not elsewhere classified; Z79.891 Long term (current) use of opiate analgesic | CPT/HCPCS: 99212 ==

== ENCOUNTER 2025-05-04 13:17 | Outpatient (AMB) | payer MEDICARE, MEDICAID, SELFPAY ==
--- NOTE | 2025-05-04 13:19 | A.OFFVIS_ITS ---
Vital Signs 3 05/04/25 13:30 Height 4 ft 11 in Weight 103 lb 6 oz BMI 20.9 BP 143/67 H Blood Pressure Location Rt brachial Position Sitting Pulse 72 Pulse Source Pulse Oximeter Pulse Oximetry (%) 96 Oxygen Delivery Method Room Air Intake Visit Reasons: pill count Intake Note: Luci comes in today for a pill count to oxycodone, patient should have 0 tablets and presents with 70 tablets which she last took today 05/04/25 at 10am. Pain today 03/30 Outside [employer] Sales Required: No Accompanied by: Self / Same As Patient Allergies sacubitril (From Entresto) Adverse Reaction (Severe, Verified 05/04/25 13:31) hyperkalemia valsartan (From Entresto) Adverse Reaction (Severe, Verified 05/04/25 13:31) hyperkalemia HPI Comments Details: Patient presents today for a pill count. Patient is supposed to have #0 pills, in her possession has #70 pills. This demonstrates a responsible attitude in regards to the medication regimen. Patient reports adequate analgesia with recent increase up to 5 tabs of oxycodone per day, with no noted side effects. Patient reports she has been taking 4 pills on most days and 5 pills on days for severe back or hip pain only. Denies any fever, dizziness, chest pain, shortness of breaths, constipation, nausea, sedation, dizziness, or urinary retention. Past Procedures: 01/05/25: Left L5 TFESI--minimal relief for >1 week [facility] Medical History Renal artery stenosis Heart failure with reduced ejection fraction Acute on chronic systolic (congestive) heart failure Lumbar spondylosis Ischemic cardiomyopathy COVID-19 vaccine series completed History of femoral angiogram Hiatal hernia CAD (coronary artery disease) AAA (abdominal aortic aneurysm) Hx of myocardial infarction Hypertension Peripheral vascular disease CKD (chronic kidney disease) stage 3, GFR 30-59 ml/min History of placement of internal cardiac defibrillator Cervical spondylosis Failed back syndrome, lumbar Surgical History Stented coronary artery Status post cardiac catheterization History of biliary duct stent placement 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 Sister Gynecologic cancer Social History Household Members: None Household Members Other:: Son Housing: Apartment Are you a primary cardiac care nurse to a significant other at home: No Alcohol intake: never Comment: Pt independent in room with steady gait, refuses fall risk precautions. Patient Tobacco Use Status: Former Tobacco user Tobacco use type: Cigarette Cigarette Packs Per Day: 1 Cigarettes Per Day: 20.0 Years Smoked: 40 e-Cigarette/Vaping Use: Former Use Second Hand Smoke Exposure: Yes Substance Use Type: Marijuana Advance Directives Date on File: 07/06/21 service: No Current occupational status: disabled Current occupation: rt handed Cognitive needs: No Hearing needs: No Vision needs: Yes (Glasses) Review of Systems Const All systems reviewed & are unremarkable except as noted in HPI and below Physical Exam On exam today: Appears afebrile. Alert and oriented. Mood and affect appropriate. Follows and participates in conversation appropriately. Respiratory effort is unlabored. No cough. Able to transition from sit to stand unassisted. Ambulates with slow, mildly antalgic gait. No limping. Eyes General: appearance normal, both eyes and all related structures Pupils: Equal, round and reactive pupils present Back/Spine/Pelvis Other: Limited lumbar ROM due to pain. Lumbar extension and flexion forward reproduces moderate pain. Painful facet loading bilaterally. Cervical Spine: loss of normal cervical lordosis, cervical muscular tenderness, pain with cervical ROM, No Cervical spine scars present, cervical spasm and No Cervical spine tenderness Thoracic/Lumbar Spine: thoracic and lumbar spine normal to inspection, Thoracic/lumbar spine scar(s), Lasegue's sign positive on the left and diffuse, pain with thoraco-lumbar ROM, paraspinal muscle tenderness, thoraco-lumbar ROM limited, No thoracic spinal tenderness and lumbar spinal tenderness (L4-S1) Pelvis: buttock tenderness on the left Sacroiliac joints: on the right nontender and on the left (+Jimbo's, +Stinchfield) tender to palpation Neuro Cranial nerves: Yes Equal, round and reactive pupils present Extrem General: Yes capillary refill normal, Yes no clubbing, cyanosis or edema and Yes no calf tenderness Psych Appearance: grossly normal and well kempt Mental Status: mental status grossly normal Speech and movement: Normal speech and movement present and Clear speech present Affect: normal affect Attitude: cooperative Thought process: Normal thought process present Thought content: Normal thought content present, suicidality (none), no hallucinations and Depressive thoughts present Insight: Good insight present (Psych) Judgement: Good judgement present (Psych) Results Reviewed Results Reviewed: XR LUMBOSACRAL SPINE WITH OBLIQUES 04/27/23 CLINICAL INFORMATION: Postlaminectomy syndrome. COMPARISON: Radiographs dated 05/10/2019. TECHNIQUE: AP, both oblique, and lateral (neutral, flexion and extension) views of the lumbar spine. Lateral view of the lumbosacral junction. FINDINGS: There is bony demineralization. At L3-L4, there is a 4 mm anterolisthesis. There is well-maintained alignment status-post L4-L5 posterior fusion and discectomy, with intact posterior fixator rods, pedicular screws and disc spacer. No hardware failure or loosening is seen. There is no acute fracture or spondylolisthesis. No instability is seen with flexion or extension. No spondylolysis defect is seen on the oblique views. There are aortoiliac atherosclerotic calcifications. Iliac stent material is noted. IMPRESSION: 1. There is well-maintained alignment status-post L4-L5 posterior fusion and discectomies. No hardware failure or loosening is seen. 2. There is mild degenerative disc disease at L3-L4. 3. No instability is seen with flexion or extension. XR SACROILIAC JOINTS 04/27/23 CLINICAL INFORMATION: Sacrococcygeal disorders. COMPARISON: Hip radiographs dated 06/19/2021 and 11/06/2017. FINDINGS: Bones and soft tissues are normal. No fracture. Alignment is anatomic. Sacroiliac joint spaces are well-maintained without erosions or surrounding sclerosis. The acetabular joint spaces are well-maintained. The pubic symphysis is intact. Lumbar orthopedic hardware and right iliac stent material are noted. IMPRESSION: Normal sacroiliac joints. BONE DENSITOMETRY 03/22/24 Osteopenia based on the lowest T-score value of -2.3 in the total femur applying World Health Organization criteria. Assessment & Plan Assessment & Plan (1) Lumbar radicular syndrome: Code(s): M54.16 - Radiculopathy, lumbar region Category: Medical (2) Failed back syndrome, lumbar: Code(s): M96.1 - Postlaminectomy syndrome, not elsewhere classified Category: Medical (3) Lumbosacral disc herniation: Code(s): M51.27 - Other intervertebral disc displacement, lumbosacral region Category: Medical (4) Lumbar spondylosis: Code(s): M47.816 - Spondylosis without myelopathy or radiculopathy, lumbar region Category: Medical (5) Sacroiliac joint pain: Code(s): M53.3 - Sacrococcygeal disorders, not elsewhere classified Category: Medical (6) Opioid contract exists: Code(s): 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 There is no evidence of misuse, abuse or diversion at this time. MassPat reviewed. Recent random UDS was positive to THC, otherwise it was concordant. Patient utilizes marijuana edibles through local dispensary. Script sent for oxycodone 5 mg up to 5x/day prn with advanced date of 05/18/25. Refill was sent for Narcan, unfortunately her insurance no longer covers. Patient was provided with Narcan from our office today. All questions were answered and the patient is in agreement with the plan. Follow up in 4-5 weeks for a pill count or sooner if needed. Medications: Refilled 2 oxycodone 5 mg orally 1-2 tablets every 6 hours up to 5 times per day PRN; Partial Fill upon patient request. 150 tabs 0RF pain (scale score 7-10) 30 days MDD 5 M47.816 - Spondylosis without myelopathy or radiculopathy, lumbar region, M96.1 - Postlaminectomy syndrome, not elsewhere classified, Z79.891 - residential (current) use of opiate analgesic Coding Level of Care Code Est Pt Level 4 (51013) Complex EM visit Add On G2211 Diagnoses Lumbar radicular syndrome M54.16 Failed back syndrome, lumbar M96.1 Lumbosacral disc herniation M51.27 Lumbar spondylosis M47.816 Sacroiliac joint pain M53.3 Opioid contract exists Z79.897
[2025-05-04 13:30] VITALS: BP 143/67; PULSE 72; O2SAT 96; BMI 20.9
--- OUTSIDE RECORDS SUMMARY | 2025-05-04 14:08 | XMS_ITS | Encounter Summary ---
Author Organization [facility] Address [address] [place] [phone] Phone Care Team Providers Care Developer Trading Systems Name Role Phone Nhan Sigala MD Primary Care Provider [phone] Encounter Details Date Type Department Care Team (Late st Contact Info) Description 10/10/2019 Procedure [facility], [address] [address] Social History Tobacco Use Types Packs/Day Years Used Date Smoking Tobacco: Never Assessed Comments Unknown Sex and Gender Information Value Date Recorded Sex Assigned at Not on file Legal Sex Female 9:56 PM EDT Gender Identity Not on file Sexual Orientation Not on file documented as of this encounter Last Filed Vital Signs Vital Sign Reading Time Taken Comments Blood Pressure - - Pulse - - Temperature - - Respiratory Rate - - Oxygen Saturation - - Inhaled Oxygen Concentration - - Weight 50.8 kg (112 lb) 10/12/2019 3:32 PM EST Height 149.9 cm (4' 11 ) 10/12/2019 3:32 PM EST Body Mass Index 22.62 10/12/2019 3:32 PM EST documented in this encounter Plan of Treatment Not on file documented as of this encounter Visit Diagnoses Not on filedocumented in this encounter Care Teams Developer Trading Systems Relationship Specialty Start Date End Date Nhan Sigala MD [address] [place] [id number] PCP - General 07/07/17 documented as of this encounter Additional Source Comments The information contained in this document represents components of the legal health record. It is not the complete legal health record.[facility]
--- OUTSIDE RECORDS SUMMARY | 2025-05-04 14:08 | XMS_ITS | Clinical Summary ---
Author Organization [facility] Address [address] [place] [address] Care Team Providers Care Scaffold Builder Name Role Phone Unavailable Primary Care Provider [...] age to complete this topic Insurance [place] [address] [place] [phone] [facility]
== END 2025-05-04 13:37 | disposition home or self-care (01) ==
LOC: HO.PMC 13:17
PROVIDERS: PCP Physician Assistant; Visit Provider Nurse Practitioner Family
DX: M54.16 Radiculopathy, lumbar region (principal); M96.1 Postlaminectomy syndrome, not elsewhere classified; M51.27 Other intervertebral disc displacement, lumbosacral region; M47.816 Spondylosis without myelopathy or radiculopathy, lumbar region; M53.3 Sacrococcygeal disorders, not elsewhere classified; Z79.891 Long term (current) use of opiate analgesic
CPT/HCPCS: 99214; G2211

== ENCOUNTER → 2025-05-04 13:17 | Outpatient (BNVA) | payer MEDICARE, MEDICAID, SELFPAY | PROVIDERS: PCP Physician Assistant; Visit Provider Nurse Practitioner Family | DX: Z51.81 Encounter for therapeutic drug level monitoring (principal); M54.16 Radiculopathy, lumbar region; M96.1 Postlaminectomy syndrome, not elsewhere classified; M51.27 Other intervertebral disc displacement, lumbosacral region; M47.816 Spondylosis without myelopathy or radiculopathy, lumbar region; M53.3 Sacrococcygeal disorders, not elsewhere classified; Z79.891 Long term (current) use of opiate analgesic | CPT/HCPCS: 99212 ==

== ENCOUNTER 2025-06-08 13:18 | Outpatient (AMB) | payer MEDICARE, MEDICAID, SELFPAY ==
--- NOTE | 2025-06-08 13:20 | MHC.OFFVIS ---
Vital Signs 06/08/25 13:26 Height 4 ft 11 in Weight 103 lb 8 oz BMI 20.9 BP 134/66 Blood Pressure Location Rt brachial Position Sitting Pulse 65 Pulse Source Pulse Oximeter Pulse Oximetry (%) 97 Oxygen Delivery Method Room Air Intake Visit Reasons: pill count Intake Note: Luci comes in today for a pill count to oxycodone, patient should have 0 tablets and presents with 44 tablets which she last took today 06/08/25 at 12pm. Pain today 04/30 Vice President Pharmacy Required: No Accompanied by: Self / Same As Patient Allergies sacubitril (From Entresto) Adverse Reaction (Severe, Verified 06/08/25 13:27) hyperkalemia valsartan (From Entresto) Adverse Reaction (Severe, Verified 06/08/25 13:27) hyperkalemia HPI Comments Details: Patient presents today for a pill count. Patient is supposed to have #0 pills, in her possession has #44 pills. This demonstrates a responsible attitude in regards to the medication regimen. She reports taking her medication as prescribed, with the exception of a fifth pill, which she only takes on particularly bad days. There have been no changes in her medication regimen, and she denies experiencing constipation even when taking up to five pills. Denies any fever, dizziness, chest pain, shortness of breaths, constipation, nausea, sedation, dizziness, or urinary retention. Past Procedures: 01/05/25: Left L5 TFESI--minimal relief for >1 week [facility] Medical History Renal artery stenosis Heart failure with reduced ejection fraction Acute on chronic systolic (congestive) heart failure Lumbar spondylosis Ischemic cardiomyopathy COVID-19 vaccine series completed History of femoral angiogram Hiatal hernia CAD (coronary artery disease) AAA (abdominal aortic aneurysm) Hx of myocardial infarction Hypertension Peripheral vascular disease CKD (chronic kidney disease) stage 3, GFR 30-59 ml/min History of placement of internal cardiac defibrillator Cervical spondylosis Failed back syndrome, lumbar Surgical History Stented coronary artery Status post cardiac catheterization History of biliary duct stent placement 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 Sister Gynecologic cancer Social History Household Members: None Household Members Other:: Son Housing: Apartment Are you a primary critical care clinical nurse specialist to a significant other at home: No Alcohol intake: never Comment: Pt independent in room with steady gait, refuses fall risk precautions. Patient Tobacco Use Status: Former Tobacco user Tobacco use type: Cigarette Cigarette Packs Per Day: 1 Cigarettes Per Day: 20.0 Years Smoked: 40 e-Cigarette/Vaping Use: Former Use Second Hand Smoke Exposure: Yes Substance Use Type: Marijuana Advance Directives Date on File: 07/06/21 service: No Current occupational status: disabled Current occupation: rt handed Cognitive needs: No Hearing needs: No Vision needs: Yes (Glasses) Review of Systems Const All systems reviewed & are unremarkable except as noted in HPI and below Physical Exam Vital Signs: Last Vital Signs Pulse 65 06/08/25 13:26 BP 134/66 06/08/25 13:26 Pulse Ox 97 06/08/25 13:26 Oxygen Delivery Method Room Air 06/08/25 13:26 BMI result Body Mass Index 20.9 On exam today: Appears afebrile. Alert and oriented. Mood and affect appropriate. Follows and participates in conversation appropriately. Respiratory effort is unlabored. No cough. Able to transition from sit to stand unassisted. Ambulates with slow, mildly antalgic gait. No limping. Eyes General: appearance normal, both eyes and all related structures Pupils: Equal, round and reactive pupils present Back/Spine/Pelvis Cervical Spine: loss of normal cervical lordosis, cervical muscular tenderness, pain with cervical ROM, No Cervical spine scars present and No Cervical spine tenderness Thoracic/Lumbar Spine: thoracic and lumbar spine normal to inspection, Thoracic/lumbar spine scar(s), Lasegue's sign positive on the left and diffuse, pain with thoraco-lumbar ROM, thoraco-lumbar ROM limited, No thoracic spinal tenderness and lumbar spinal tenderness (L4-S1) Sacroiliac joints: on the left (+Jimbo's, +Stinchfield) tender to palpation Neuro Cranial nerves: Yes Equal, round and reactive pupils present Psych Appearance: grossly normal and well kempt Mental Status: mental status grossly normal Speech and movement: Normal speech and movement present and Clear speech present Affect: normal affect Attitude: cooperative Thought process: Normal thought process present Thought content: Normal thought content present, suicidality (none), no hallucinations and Depressive thoughts present Insight: Good insight present (Psych) Judgement: Good judgement present (Psych) Assessment & Plan Assessment & Plan (1) Lumbar radicular syndrome: Code(s): M54.16 - Radiculopathy, lumbar region Category: Medical (2) Failed back syndrome, lumbar: Code(s): M96.1 - Postlaminectomy syndrome, not elsewhere classified Category: Medical (3) Lumbosacral disc herniation: Code(s): M51.27 - Other intervertebral disc displacement, lumbosacral region Category: Medical (4) Lumbar spondylosis: Code(s): M47.816 - Spondylosis without myelopathy or radiculopathy, lumbar region Category: Medical (5) Sacroiliac joint pain: Code(s): M53.3 - Sacrococcygeal disorders, not elsewhere classified Category: Medical (6) Opioid contract exists: Code(s): Z79.891 - parts counterman (current) use of opiate analgesic Category: Medical Plan Patient has shown accountability for her medication regimen and the pill counts were accurate. There is no evidence of misuse, abuse or diversion at this time. [employer] reviewed. Script sent for oxycodone 5 mg up to 5x/day prn with advanced date of 06/17/25. Patient has Narcan at home. All questions were answered and the patient is in agreement with the plan. Follow up in 4-5 weeks for a pill count or sooner if needed. Medications: Refilled oxycodone 5 mg orally 1-2 tablets every 6 hours up to 5 times per day PRN; Partial Fill upon patient request. 150 tabs 0RF pain (scale score 7-10) 30 days MDD 5 M47.816 - Spondylosis without myelopathy or radiculopathy, lumbar region, M96.1 - Postlaminectomy syndrome, not elsewhere classified, Z79.891 - parts counterman (current) use of opiate analgesic Coding Level of Care Code Est Pt Level 4 (79820) Complex EM visit Add On G2211 Diagnoses Lumbar radicular syndrome M54.16 Failed back syndrome, lumbar M96.1 Lumbosacral disc herniation M51.27 Lumbar spondylosis M47.816 Sacroiliac joint pain M53.3 Opioid contract exists Z79.891
[2025-06-08 13:26] VITALS: BP 134/66; PULSE 65; O2SAT 97; BMI 20.9
--- OUTSIDE RECORDS SUMMARY | 2025-06-08 15:18 | XMS_ITS | Encounter Summary ---
Author Organization [facility] Address [address] [facility] [address] [place] [address] Phone Care Team Providers Care Nail Galvanizer Name Role Phone hNan Sigala MD Primary Care Provider [phone] Reason for Referral * MRI/CAT Scan - Closed Specialty Diagnoses / Procedures Referred By Contac t Referred To Contact Radiology Diagnoses Cervical radiculopathy Spondylosis of cervical region without myelopathy or radiculopathy Procedures MRI Cervical Spine Lorraine Lr PA Phone: tel: fax: [email or web address] Referral ID Status Reason Start Date Expiration Date Visits Re quested Visits Authorized [id number] Closed 10/10/2019 12/09/2019 1 1 Encounter Details Date Type Department Care Team (Latest Contact Info) Description 10/10/2019 Transcribe Orders Virtual Department [address] [place] [address] Lorraine Lr PA [address] [place] [id number] [email or web address] Spondylosis of cervical region without myelopathy or radiculopathy (Primary Dx); Cervical radiculopathy Social History Tobacco Use Types Packs/Day Years Used Date Smoking Tobacco: Never Assessed Comments Unknown Sex and Gender Information Value Date Recorded Sex Assigned at Not on file Legal Sex Female 9:56 PM EDT Gender Identity Not on file Sexual Orientation Not on file documented as of this encounter Plan of Treatment Not on file documented as of this encounter Results * MRI CERVICAL SPINE (NEURO) FOCUS WITHOUT CONTRAST (10/18/2019 2:39 PM EST) Anatomical Region Laterality Modality C-spine Magnetic Resonan ce 10/18/2019 4:53 PM EST Impressions 10/18/2019 5:02 PM EST 1. Multilevel degenerative changes of the cervical spine as described above. Central canal narrowing is most pronounced at C5-C6 and C6-C7. Flattening or thinning of the cord is present at C5-C6. No cord signal abnormality. 2. Mild edema related to the right C3-C4 facet joint is noted in conjunction with a small facet joint effusion. This may represent reactive edema due to degenerative change. If there are risk factors for spinal infection, correlation with CBC/inflammatory markers and follow-up imaging are advised to exclude a septic facet joint. 3. Loss of the left vertebral artery flow void compatible with occlusion. POS - [id number] Narrative 10/18/2019 5:02 PM EST MRI CERVICAL SPINE (NEURO) FOCUS WITHOUT CONTRAST *Cervical radiculopathy TECHNIQUE: MRI of the cervical spine was performed without intravenous contrast utilizing sagittal T1, sagittal T2, sagittal STIR, axial gradient echo, and axial T2-weighted sequences. COMPARISON: No prior studies are available for comparison at the time of interpretation. FINDINGS: ALIGNMENT, VERTEBRAE, MARROW, AND DISCS: Reversal of the cervical lordosis. Subtle degenerative anterolisthesis of C3 on C4 and C7 on T1. The cervical vertebral bodies are normal in height. Mild chronic compression fracture of T1. The C4-C5, C5-C6, and C6-C7 disks are severely diminished in height. Marginal osteophytes and facet arthroses are present at multiple lumbar levels. Right facet joint effusion at C3-C4. POSTERIOR FOSSA AND CORD: The visualized posterior cranial fossa structures and cervicomedullary junction are unremarkable. PARASPINAL TISSUES: The right vertebral artery flow void is maintained. There is loss of the left vertebral artery flow void. DETAILED FINDINGS BY LEVEL: C2-C3: Right facet arthrosis. No central canal or foraminal stenosis. C3-C4: Right greater than left facet arthrosis. Minimal broad-based posterior disc bulge. No central canal stenosis. No significant foraminal narrowing. Mild right facet joint edema. C4-C5: Concentric disc-osteophyte complex. Mild central canal stenosis. Probable mild right and at least moderate left foraminal narrowing. C5-C6: Concentric disc-osteophyte complex with moderate central canal stenosis. No definite cord impingement is present, but there is flattening or volume loss of the cord at this level. Moderate right and severe left foraminal stenosis. C6-C7: Posterior disc-osteophyte complex with mild central canal narrowing. Probable mild bilateral foraminal narrowing. C7-T1: No central canal stenosis. No significant foraminal narrowing. Procedure Note Gautam Capps MD - 10/18/2019 MRI CERVICAL SPINE (NEURO) FOCUS WITHOUT CONTRAST *Cervical radiculopathy TECHNIQUE: MRI of the cervical spine was performed without intravenouscontrast utilizing sagittal T1, sagittal T2, sagittal STIR, axial gradientecho, and axial T2-weighted sequences. COMPARISON: No prior studies are available for comparison at the time ofinterpretation. FINDINGS: ALIGNMENT, VERTEBRAE, MARROW, AND DISCS: Reversal of the cervicallordosis. Subtle degenerative anterolisthesis of C3 on C4 and C7 on T1.The cervical vertebral bodies are normal in height. Mild chroniccompression fracture of T1. The C4-C5, C5-C6, and C6-C7 disks are severely diminished in height.Marginal osteophytes and facet arthroses are present at multiple lumbarlevels. Right facet joint effusion at C3-C4. POSTERIOR FOSSA AND CORD: The visualized posterior cranial fossastructures and cervicomedullary junction are unremarkable. PARASPINAL TISSUES: The right vertebral artery flow void is maintained.There is loss of the left vertebral artery flow void. DETAILED FINDINGS BY LEVEL: C2-C3: Right facet arthrosis. No central canal or foraminal stenosis. C3-C4: Right greater than left facet arthrosis. Minimal broad-basedposterior disc bulge. No central canal stenosis. No significant foraminalnarrowing. Mild right facet joint edema. C4-C5: Concentric disc-osteophyte complex. Mild central canal stenosis.Probable mild right and at least moderate left foraminal narrowing. C5-C6: Concentric disc-osteophyte complex with moderate central canalstenosis. No definite cord impingement is present, but there is flatteningor volume loss of the cord at this level. Moderate right and severe leftforaminal stenosis. C6-C7: Posterior disc-osteophyte complex with mild central canalnarrowing. Probable mild bilateral foraminal narrowing. C7-T1: No central canal stenosis. No significant foraminal narrowing. IMPRESSION: 1. Multilevel degenerative changes of the cervical spine as describedabove. Central canal narrowing is most pronounced at C5-C6 and C6-C7.Flattening or thinning of the cord is present at C5-C6. No cord signalabnormality. 2. Mild edema related to the right C3-C4 facet joint is noted inconjunction with a small facet joint effusion. This may represent reactiveedema due to degenerative change. If there are risk factors for spinalinfection, correlation with CBC/inflammatory markers and follow-up imagingare advised to exclude a septic facet joint. 3. Loss of the left vertebral artery flow void compatible withocclusion. POS - [id number] Lorraine [place] IMG MR XSPECIALTY Final Res ult documented in this encounter Visit Diagnoses Diagnosis Spondylosis of cervical region without myelopathy or radiculopathy- Primary Cervical radiculopathy Brachial neuritis or radiculitis nos Cervical radiculopathy Brachial neuritis or radiculitis nos Spondylosis of cervical region without myelopathy or radiculopathy documented in this encounter Care Teams Nail Galvanizer Relationship Specialty Start Date End Date Nhan Sigala MD [address] [address] PCP - General 07/07/17 documented as of this encounter Additional Source Comments The information contained in this document represents components of the legal health record. It is not the complete legal health record.[facility]
--- OUTSIDE RECORDS SUMMARY | 2025-06-08 15:18 | XMS_ITS | Clinical Summary ---
Author Organization [facility] Address [address] [facility] [address] [place], [place] [id number] Phone Care Team Providers Care Auto Accessories Installer Name Role Phone Nhan Sigala MD Primary Care Provider [phone] Allergies Active Allergy Reactions Criticality Noted Date Comments Sacubitril-Valsartan 08/25/2022 Medications alendronate (FOSAMAX) 70 MG tablet Take 70 mg by mouth. 08/15/2021 Active atorvastatin (LIPITOR) 80 MG tablet Take 80 mg by mouth daily. 08/12/2022 Active calcium carbonate (OS-MOY) 1,250 mg (500 mg elemental) tablet Take 1 tablet by mouth daily. 08/12/2022 Active XARELTO 2.5 mg tablet Take 2.5 mg by mouth 2 (two) times a day. 08/20/2022 Active oxyCODONE 5 MG immediate release tablet TAKE ONE TABLET BY MOUTH FOUR TIMES A DAY NEEDED FOR PAIN 08/20/2022 Active mirtazapine (REMERON) 15 MG tablet Take 15 mg by mouth. 08/15/2021 Active metoprolol succinate (TOPROL-XL) 50 MG 24 hr tablet Take 50 mg by mouth daily. 08/12/2022 Active isosorbide mononitrate (IMDUR) 30 MG 24 hr tablet Take 30 mg by mouth. 08/16/2021 Active furosemide (LASIX) 20 MG tablet TAKE ONE TABLET BY MOUTH EVERY DAY NEEDED FOR WEIGHT GAIN 07/15/2022 Active ezetimibe (ZETIA) 10 mg tablet Take 10 mg by mouth daily. 08/12/2022 Active dexAMETHasone (DECADRON) 4 MG tablet Take 4 mg by mouth daily. 08/15/2021 Active diphenoxylate-at ropine (LOMOTIL) 2.5-0.025 mg per tablet as needed. 06/30/2022 Active Active Problems Problem Noted Date Diagnosed Date Claudication 08/25/2022 Assessment & Plan (08/25/2022 12:35 PM EST): As mentioned we are going to order some ultrasounds I will see her thereafter in follow-up and come up with a revascularization strategy she is already had common femoral endarterectomies Pure hypercholesterolemia 08/25/2022 Benign essential hypertension 08/25/2022 Assessment & Plan (08/25/2022 12:35 PM EST): Well-controlled Status post coronary artery bypass grafting 01/2022 Assessment & Plan (08/25/2022 12:35 PM EST): This patient has severe LV dysfunction after bypass surgery with a defibrillator in place followed by Dr. Major Social History Tobacco Use Types Packs/Day Years Used Date Smoking Tobacco: Never Assessed Education Answer Date Recorded Are you interested in more education? Not on aguilar e 01/16/2023 Are you concerned about learning? Not on file 01/16/2023 No 01/16/2023 No 01/16/2023 Digital Access Answer Date Recorded No 02/14/2023 No 02/14/2023 No 02/14/2023 Reliable internet access at home? Not on file 02/14/2023 Device with a working camera? Not on file Comments Unknown Sex and Gender Information Value Date Recorded Sex Assigned at Not on file Legal Sex Female 9:56 PM EDT Gender Identity Not on file Sexual Orientation Not on file Last Filed Vital Signs Vital Sign Reading Time Taken Comments Blood Pressure 148/68 08/25/2022 12:13 PM EST Pulse 66 08/25/2022 12:13 PM EST Temperature - - Respiratory Rate - - Oxygen Saturation 99% 08/25/2022 12:13 PM EST Inhaled Oxygen Concentration - - Weight 47.2 kg (104 lb) 08/25/2022 12:13 PM EST Height 149.9 cm (4' 11 ) 10/12/2019 3:32 PM EST Body Mass Index 21.01 10/12/2019 3:32 PM EST Plan of Treatment Health Maintenance Due Date Last Done Comments CREATININE LEVEL 1954 LIPID PANEL 1954 DEPRESSION SCREENING 1966 SMOKING Hx and SMOKELESS TOBACCO SCREENING 1967 HEPATITIS C SCREENING 1972 MAMMOGRAM 1994 COLOGUARD 1999 COLONOSCOPY 1999 COLORECTAL CANCER SCREENING 1999 FIT TEST 1999 FOBT 1999 SIGMOIDOSCOPY 1999 VIRTUAL COLONOSCOPY 1999 OSTEOPOROSIS SCREENING INITIAL (ONE-TIME) 2019 BLOOD PRESSURE 02/23/2023 08/25/2022 INFLUENZA VACCINE (#1) 2025 0, 06/22/2018, 07/03/2017, Additional history exists COVID-19 VACCINE (2 - 2024- season) 2025 12/08/2020 PNEUMOCOCCAL VACCINES (50+ years) (3 of 3 - PCV20 or PCV21) 07/02/2025 07/02/2020, 07/04/2011 Adult Td,Tdap Booster 12/30/2028 12/30/2018 RSV VACCINE (1 - 1-dose 75+ series) 2029 ZOSTER VACCINES Completed 07/15/2018, 03/30/2018 HEPATITIS A VACCINES Aged Out No long er eligible based on patient's age to complete this topic HIB VACCINES Aged Out No longer eligi ble based on patient's age to complete this topic MENINGOCOCCAL VACCINES (ACWY) Aged Out No longer eligible based on patient's age to complete this topic MENINGOCOCCAL VACCINES (B) Aged Out N o longer eligible based on patient's age to complete this topic Medical Devices Implanted Type Area Tin Recovery Worker Device Identifier Shelf Expiration Date Model / Serial / Lot Icd Single-Chamber Ellipse [id number] 12mm Vr 36 Non-Coated Df4 Connector-01/28/2018 Implanted: 8 (Quantity not on file) ICD [employer] PT8660-08C / [id number] / Lead Durata 7fr 52cm Defibrillation Single Coil Optim Insulation Ext/Cristo Boomer Df4 Connector-01/28/2018 Implanted: 8 (Quantity not on file) Lead [employer] 7122Q/52 / [id number] / [place] & B Care Teams Auto Accessories Installer Relationship Specialty Start Date End Date Nhan Sigala MD [address] [address] PCP - General 07/07/17 Additional Source Comments The information contained in this document represents components of the legal health record. It is not the complete legal health record.[facility]
--- OUTSIDE RECORDS SUMMARY | 2025-06-08 15:18 | XMS_ITS | Clinical Summary ---
Author Organization [employer] Address [address] [facility] [address] [place] [address] Care Team Providers Care Cigar Packer And Sorter Name Role Phone Unavailable Primary Care Provider [...] years 1-dose series) 2014 COVID-19 Vaccine ( - season) 2025 09/24/2022, 06/16/2021, 12/08/2020, Additional history exists Influenza [...] to complete [place] [id number] [facility]
--- OUTSIDE RECORDS SUMMARY | 2025-06-08 15:18 | XMS_ITS | Encounter Summary ---
Author Organization [facility] Address [address] [facility] [address] [place] [phone] Phone Care Team Providers Care Timber Treatment Plant Operator Name Role Phone Nhan Sigala MD Primary Care Provider [phone] [phone] Encounter Details Date Type Department Care Team (Late st Contact Info) Description 10/10/2019 Procedure Pass [facility], [address] [address] Social History Tobacco Use Types Packs/Day Years [...] on filedocumented in this encounter Care Teams Timber Treatment Plant Operator Relationship Specialty Start Date End Date Nhan Sigala MD [address] [place] [address] PCP - General 07/07/17 documented as of this encounter Additional Source Comments The information contained in this document represents components of the legal health record. It is not the complete legal health record.[facility]
--- OUTSIDE RECORDS SUMMARY | 2025-06-08 15:18 | XMS_ITS | Encounter Summary ---
Author Organization [facility] Address [address] [facility] [address] [place] [address] Phone Care Team Providers Care Tools Administrator Name Role Phone Nhan Sigala MD Primary Care Provider [phone] [phone] Encounter Details Date Type Department Care Team (Latest Contact Info) Description 10/12/2019 Ancillary Orders [facility] [address] [place] [address] Yasir Hung MD [address] [place] [address] [email or web address] SSS (sick sinus syndrome) Social History Tobacco Use Types Packs/Day Years Used Date Smoking Tobacco: Never Assessed Comments Unknown Sex and Gender Information Value Date Recorded Sex Assigned at Not on file Legal Sex Female 9:56 PM EDT Gender Identity Not on file Sexual Orientation Not on file documented as of this encounter Plan of Treatment Pending Results Name Type Priority Associated Diagnoses Date /Time EP Device Check / Follow Up Cardiac Monitors Routine SSS (sick sinus syndrome) 10/18/2019 2:37 PM EST Scheduled Orders Name Type Priority Associated Diagnoses Orde r Schedule EP Device Check / Follow Up Cardiac Monitors Routine SSS (sick sinus syndrome) Expected: 10/12/2019, Expires: 10/12/2020 documented as of this encounter Visit Diagnoses Diagnosis SSS (sick sinus syndrome) Sinoatrial node dysfunction documented in this encounter Care Teams Tools Administrator Relationship Specialty Start Date End Date Nhan Sigala MD [address] [address] PCP - General 07/07/17 documented as of this encounter Additional Source Comments The information contained in this document represents components of the legal health record. It is not the complete legal health record.[facility]
== END 2025-06-08 14:03 | disposition home or self-care (01) ==
LOC: HO.PMC 13:19
PROVIDERS: PCP Physician Assistant; Visit Provider Nurse Practitioner Family
DX: M54.16 Radiculopathy, lumbar region (principal); M96.1 Postlaminectomy syndrome, not elsewhere classified; M51.27 Other intervertebral disc displacement, lumbosacral region; M47.816 Spondylosis without myelopathy or radiculopathy, lumbar region; M53.3 Sacrococcygeal disorders, not elsewhere classified; Z79.891 Long term (current) use of opiate analgesic
CPT/HCPCS: 99214; G2211

== ENCOUNTER → 2025-06-08 13:18 | Outpatient (BNVA) | payer MEDICARE, MEDICAID, SELFPAY | PROVIDERS: PCP Physician Assistant; Visit Provider Nurse Practitioner Family | DX: Z51.81 Encounter for therapeutic drug level monitoring (principal); M54.16 Radiculopathy, lumbar region; M96.1 Postlaminectomy syndrome, not elsewhere classified; M51.27 Other intervertebral disc displacement, lumbosacral region; M47.816 Spondylosis without myelopathy or radiculopathy, lumbar region; M53.3 Sacrococcygeal disorders, not elsewhere classified; Z79.891 Long term (current) use of opiate analgesic | CPT/HCPCS: 99212 ==

== ENCOUNTER → 2025-06-21 23:59 | Outpatient (BNV) | payer MEDICARE, MEDICAID, SELFPAY ==
--- NOTE | 2025-06-26 09:14 | A.OFFVIS_ITS ---
Intake Visit Reasons: Remote ICD check- [facility] Allergies sacubitril (From Entresto) Adverse Reaction (Severe, Verified 06/08/25 13:27) hyperkalemia valsartan (From Entresto) Adverse Reaction (Severe, Verified 06/08/25 13:27) hyperkalemia [facility] Medical History Renal artery stenosis Heart failure with reduced ejection fraction Acute on chronic systolic (congestive) heart failure Lumbar spondylosis Ischemic cardiomyopathy COVID-19 vaccine series completed History of femoral angiogram Hiatal hernia CAD (coronary artery disease) AAA (abdominal aortic aneurysm) Hx of myocardial infarction Hypertension Peripheral vascular disease CKD (chronic kidney disease) stage 3, GFR 30-59 ml/min History of placement of internal cardiac defibrillator Cervical spondylosis Failed back syndrome, lumbar Surgical History Stented coronary artery Status post cardiac catheterization History of biliary duct stent placement 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 Sister Gynecologic cancer Social History Household Members: None Household Members Other:: Son Housing: Apartment Are you a primary director of patient care to a significant other at home: No Alcohol intake: never Comment: Pt independent in room with steady gait, refuses fall risk precautions. Patient Tobacco Use Status: Former Tobacco user Tobacco use type: Cigarette Cigarette Packs Per Day: 1 Cigarettes Per Day: 20.0 Years Smoked: 40 e-Cigarette/Vaping Use: Former Use Second Hand Smoke Exposure: Yes Substance Use Type: Marijuana Advance Directives Date on File: 07/06/21 service: No Current occupational status: disabled Current occupation: rt handed Cognitive needs: No Hearing needs: No Vision needs: Yes (Glasses) Office Procedures Cardiac Device Check Cardiac Device Check Details: Remote ICD report generated 06/21/2025. ICD function is adequate [id number] Cardiac Interrogation, implant defibrillator w/interim Procedure code (CPT) selection complete Assessment & Plan Assessment & Plan (1) ICD (implantable cardioverter-defibrillator) in place: Code(s): Z95.810 - Presence of automatic (implantable) cardiac defibrillator Category: Medical Plan: See above Coding Level of Care Code Procedure Only Diagnoses ICD (implantable cardioverter-defibrillator) in place Z95.810 CPT Codes Cardiac Device Check - Cardiac Device 13: [id number] Cardiac Interrogation, implant defibrillator w/interim ([id number])
== END ==
PROVIDERS: PCP Physician Assistant; Visit Provider Internal Medicine Cardiovascular Disease
DX: Z45.02 Encounter for adjustment and management of automatic implantable cardiac defibrillator (principal)
CPT/HCPCS: 93295

== ENCOUNTER → 2025-07-04 13:47 | Outpatient (REF) | payer MEDICARE, MEDICAID, SELFPAY ==
--- NOTE | 2025-07-04 13:50 | CA_ITS ---
Transthoracic Echocardiogram Patient (Last, First, Middle): Luci Grady, Gender: F Date of : 1955 Age: 69 Procedure Date: 07/04/2025 Procedure Type: Transthoracic Echocardiogram Location: OP Height: 149.86 cm Weight: 47.63 kg BSA: 1.40 m2 Heart Rate: 56 bpm BP: 136 / 90 mmHg Inspector Coated Fabrics: MILLER Referring MD: Maxwell Le MD Symptoms: I50.20 - Unspecified systolic (congestive) heart failure Study Quality: Adequate w/Contrast ECG Rhythm: Bradycardia Conclusions: - The left ventricular systolic function is severely decreased. The visually estimated ejection fraction is between 25-30%. - Wall motion abnormalities related to underlying coronary disease. - No obvious valvular pathology seen on this study. Findings Procedure Information Contrast agent, definity, is being given per protocol without apparent complications. Left Ventricle Normal left ventricular cavity size. There is normal left ventricular wall thickness. The left ventricular systolic function is severely decreased. The visually estimated ejection fraction is between 25-30%. There is evidence of regional wall motion abnormalities. Evidence suggests grade I (mild) diastolic dysfunction. Wall Motion Rest Echo Findings The basal inferior segment is hypokinetic. The apical anterior, apical inferior, apical septum, mid inferoseptal, and mid anteroseptal segments are akinetic. The apex segment is dyskinetic. Right Ventricle Normal right ventricular cavity size. There is moderately decreased right ventricular systolic function. There is an ICD wire seen in the right ventricle. Atria The left atrium is mildly dilated. The right atrium is normal in size. Aortic Valve There is mild calcification of the aortic valve. There is no aortic valve stenosis. There is mild aortic valve regurgitation. Mitral Valve There is mild mitral annular calcification. There is mild mitral valve regurgitation. There is no mitral valve stenosis. Pulmonic Valve The pulmonic valve is likely normal. Tricuspid Valve There is trace tricuspid valve regurgitation. There is no evidence of pulmonary hypertension. Great Vessels The asc aorta is normal in size. Venous The inferior vena cava is normal in size and collapses greater than 50% with inspiration. Pericardium/Pleural There is no evidence of pericardial effusion. Prior Study Comparison No significant change compared to prior study dated: 06/30/2024. Recommendations, Care & Conclusions No obvious valvular pathology seen on this study. Measurements 2D Linear Measurements IVSd: 0.88 0.6-0.9/0.6-1.0 cm LVIDd: 5.44 3.9-5.3/4.2-5.9 cm LVIDd Index: 3.89 2.4-3.2/2.2-3.1 cm/m2 LVIDs: 4.29 2.0-3.6 cm LVPWd: 0.86 0.7-1.1 cm LA Diam: 4.50 2.7-3.8/3.0-4.0 cm LAIDs Index: 3.21 1.5-2.3 cm/m2 LV Mass: 218.17 67-162/88-224 g LV Mass Index: 155.83 43-95/49-115 g/m2 LVOT Diam: 2.00 3.0+(-)1.3 cm 2D Systolic Function EF 4C: 31.10 >55% EF 2C: 37.40 >55% EF BiP: 33.70 >55% Mitral Valve MV Pk E: 0.52 MV PK A: 1.04 MV Decel Time: 275.00 E/A: 0.50 E'Lateral: 2.89 E'Medial: 2.20 E/E' Med: 23.70 E/E' Lat: 18.00 PHT: 80.00 MVA PHT: 2.75 Decel [place]: 1.90 Aortic Valve AoV Pk Eb: 1.31 AoV Mn Eb: 0.85 AoV VTI: 0.29 AoV Pk Grad: 7.00 Aov Mn Grad: 3.00 MONSE Cont.VTI: 2.16 AI Pk Eb: 2.72 AI [place]: 1.39 LVOT LVOT Pk Eb: 1.01 LVOT Mn Eb: 0.60 LVOT VTI: 0.20 LVOT Pk Grad: 4.00 LVOT Mn Grad: 2.00 LVOT Diam: 2.00 LVOT Area: 3.14 Diastolic Function MV Pk E: 0.52 MV Pk A: 1.04 E/A: 0.50 E'Medial: 2.20 E/E' Med: 23.70 E' Laterial: 2.89 E/E' Lat: 18.00 Right Ventricle TAPSE (mm): 8.56 TVS' Eb: 4.19 Tricuspid Valve TR Pk Eb: 2.19 TR Pk Grad: 19.00 Great Vessels Aorta Sinus of Valsalva: 2.70 2.0-3.5 cm Ao Asc: 3.10 2.1-3.4 cm Ao Arch: 3.20 Pulmonary Veins Pulm Vein S/D 1.60 Pulmonary Valve PV Pk Eb: 0.86 Peak PV Grad: 3.00 Updated in Other Vendor System with Status of Final Garcia Muñiz MD electronically signed on 07/05/2025 11:00:16 AM with status of Final
--- OUTSIDE RECORDS SUMMARY | 2025-07-04 16:47 | XMS_ITS | Encounter Summary ---
Author Organization [facility] Address [address] [facility] [address] [place] [address] Phone Care Team Providers Care Food Processing Scientist Name Role Phone Nhan Sigala MD Primary Care Provider [phone] Reason for Referral * MRI/CAT Scan - Closed Specialty Diagnoses / Procedures Referred By Contac t Referred To Contact Radiology Diagnoses Cervical radiculopathy Spondylosis of cervical region without myelopathy or radiculopathy Procedures MRI Cervical Spine Lorraine Lr PA Phone: tel: fax: [email or web address] Referral ID Status Reason Start Date Expiration Date Visits Re quested Visits Authorized [id number] Closed 10/10/2019 12/09/2019 1 1 Encounter Details Date Type Department Care Team (Latest Contact Info) Description 10/10/2019 Transcribe Orders Virtual Department [address] [place] [address] Lorraine Lr PA [address] [place] [phone] [email or web address] Spondylosis of cervical region without myelopathy or [...] flow void compatible with occlusion. POS - [id number] Narrative 10/18/2019 5:02 PM EST MRI CERVICAL [...] artery flow void compatible withocclusion. POS - [id number] Lorraine [place] IMG MR XSPECIALTY Final Res ult documented in this encounter Visit Diagnoses Diagnosis Spondylosis of cervical region without myelopathy or radiculopathy- Primary Cervical radiculopathy Brachial neuritis or radiculitis nos Cervical radiculopathy Brachial neuritis or radiculitis nos Spondylosis of cervical region without myelopathy or radiculopathy documented in this encounter Care Teams Food Processing Scientist Relationship Specialty Start Date End Date Nhan Sigala MD [address] [address] PCP - General 07/07/17 documented as of this encounter Additional Source Comments The information contained in this document represents components of the legal health record. It is not the complete legal health record.[facility]
--- OUTSIDE RECORDS SUMMARY | 2025-07-04 16:47 | XMS_ITS | Clinical Summary ---
Author Organization [facility] Address [address] [facility] [address] [place], [place] [id number] Phone Care Team Providers Care Time Study Engineer Name Role Phone Nhan Sigala MD Primary Care Provider [phone] Allergies Active Allergy Reactions Criticality Noted Date [...] this topic Medical Devices Implanted Type Area Blasting Entry Specialist Device Identifier Shelf Expiration Date Model / Serial / Lot Icd Single-Chamber Ellipse [id number] 12mm Vr 36 Non-Coated Df4 Connector-01/28/2018 Implanted: 8 (Quantity not on file) ICD [employer] [id number] / [id number] / Lead Durata 7fr 52cm Defibrillation Single Coil Optim Insulation Ext/Cristo [place] Df4 Connector-01/28/2018 Implanted: 8 (Quantity not on file) Lead [employer] 7122Q/52 / [id number] / [place] & B Care Teams Time Study Engineer Relationship Specialty Start Date End Date Nhan Sigala MD [address] [address] PCP - General 07/07/17 Additional Source Comments The information contained in this document represents components of the legal health record. It is not the complete legal health record.[facility]
--- OUTSIDE RECORDS SUMMARY | 2025-07-04 16:47 | XMS_ITS | Encounter Summary ---
Author Organization [facility] Address [address] [facility] [address] [place] [address] Phone Care Team Providers Care Electric Operator Name Role Phone Nhan Sigala MD Primary Care Provider [phone] Encounter Details Date Type Department Care Team (Late st Contact Info) Description 10/10/2019 Procedure Pass [facility], [address] [address] Social History Tobacco Use Types Packs/Day Years [...] on filedocumented in this encounter Care Teams Electric Operator Relationship Specialty Start Date End Date Nhan Sigala MD [address] [place] [address] PCP - General 07/07/17 documented as of this encounter Additional Source Comments The information contained in this document represents components of the legal health record. It is not the complete legal health record.[facility]
--- OUTSIDE RECORDS SUMMARY | 2025-07-04 16:47 | XMS_ITS | Clinical Summary ---
Author Organization [facility] Address [address] [facility] [address]t [place] [address] Care Team Providers Care Truck Body Builder Name Role Phone Unavailable Primary Care [...] to [place] [id number] [facility]
--- OUTSIDE RECORDS SUMMARY | 2025-07-04 16:47 | XMS_ITS | Encounter Summary ---
Author Organization [facility] Address [address] [facility] [address] [place] [address] Phone Care Team Providers Care Graduate Research Assistant Name Role Phone Nhan Sigala MD Primary Care Provider [phone] Encounter Details Date Type Department Care Team (Latest Contact Info) Description 10/12/2019 Ancillary Orders [facility]ovascular [facility] Interventional Radiology [address] [place] [address] Yasir Hung MD [address] [place] [address] [email or web address] (sick sinus syndrome) Social [...] dysfunction documented in this encounter Care Teams Graduate Research Assistant Relationship Specialty Start Date End Date Nhan Sigala MD [address] [address] PCP - General 07/07/17 documented as of this encounter Additional Source Comments The information contained in this document represents components of the legal health record. It is not the complete legal health record.[facility]
--- OUTSIDE RECORDS SUMMARY | 2025-07-04 16:47 | XMS_ITS | Patient Health Record ---
Author Organization [facility] Address [address] [place] [address] Care Team Providers Care Remotely Operated Vehicle Name Role Phone Nhan Sigala Primary Care Provider Unruly Negron Unavailable [phone] Reason For Referral No Information Medications Medication [...] Problem Status W/U Status Risk Notes Problem Screening for malignant neoplasm of colon (248985038) Encounter for screening for malignant neoplasm of colon (Z12.11) Active confirmed Problem Computed tomography of abdomen abnormal (17921337880643 107) Abnormal CT scan, stomach (R93.3) Active confirmed Plan Of Treatment Future Test Test Name Order Date UPPER GI ENDOSCOPY 08/05/2017 Insurance Providers Payer Name Payer Address Payer Phone Subscriber Number Group Number Insured Name Patient Relationship to Insured Coverage Start Date Coverage End Date MEDICAID OF [employer] [address] [place] [id number] JEANNIE YOST Self - patient is the insured Medical (General) History Medical History History ICD Code OK-01/2016--3V-CABG; had a stent put in a pprox 2010 Hypertension Denies DM,CVA,Lung disease Back pain Hyperlipidemia PVD--stent in right leg Reports an andominal aortic aneurysm Surgical History Surgery Date(Month/Year) Back surgery 2016 Cyst removal-ovary 1985 2V-CABG 2015 Broken left humerus--has a franci in place 2010
== END ==
LOC: HO.CARD 13:47
PROVIDERS: PCP Physician Assistant; Visit Provider Internal Medicine Cardiovascular Disease
DX: I50.20 Unspecified systolic (congestive) heart failure (principal)
CPT/HCPCS: 93306; Q9957

== ENCOUNTER → 2025-07-04 13:50 | Outpatient (BNV) | payer MEDICARE, MEDICAID, SELFPAY | PROVIDERS: PCP Physician Assistant; Visit Provider Internal Medicine | DX: I50.20 Unspecified systolic (congestive) heart failure (principal); I34.0 Nonrheumatic mitral (valve) insufficiency; I35.1 Nonrheumatic aortic (valve) insufficiency | CPT/HCPCS: 93306 ==

== ENCOUNTER 2025-07-11 13:20 | Outpatient (AMB) | payer MEDICARE, MEDICAID, SELFPAY ==
--- NOTE | 2025-07-11 13:22 | MHC.OFFVIS ---
Vital Signs 07/11/25 13:23 Height 4 ft 11 in Weight 103 lb 9.876 oz BMI 20.9 BP 142/80 H Blood Pressure Location Lt brachial Position Sitting Pulse 60 Intake Visit Reasons: 7m follow up Intake Note: 7 month follow-up with [facility] Supervisor Process Testing Required: No Allergies sacubitril (From Entresto) Adverse Reaction (Severe, Verified 06/08/25 13:27) hyperkalemia valsartan (From Entresto) Adverse Reaction (Severe, Verified 06/08/25 13:27) hyperkalemia Medication List - Last Reconciled 07/11/25 by Maxwell Le MD aspirin (Adult Low Dose Aspirin) 81 mg PO DAILY atorvastatin 80 mg PO DAILY blood pressure monitor As directed calcium carbonate (Oyster Shell Calcium) 500 mg PO DAILY 90 days cyclobenzaprine 10 mg PO TID PRN 30 days diphenoxylate-atropine 2.5-0.025 mg 1 tab PO BID PRN ezetimibe 10 mg PO DAILY metoprolol succinate ER 50 mg PO DAILY naloxone 4 mg/actuation (Narcan) 4 mg intranasal Q2M PRN oxycodone 5 mg orally 1-2 tablets every 6 hours up to 5 times per day PRN; Partial Fill upon patient request. 30 days MDD 5 quetiapine (Seroquel) 25 mg PO BEDTIME 30 days rivaroxaban (Xarelto) 2.5 mg PO BID triamcinolone acetonide 0.5% 1 appl topical DAILY PRN HPI Comments Details: Phylicia comes for 6 months follow-up. She had recent echocardiogram showed mild worsening of LV ejection fraction of 25-30%. Remote monitoring shows high ventricular rate consistent with possible VT/SVT, lasting 11 seconds. She had no symptoms related to it. She denies any symptoms of exertional chest pain or shortness of breath. She is limited in symptoms with walking with right calf pain if she continues to walk she can has bilateral hip pain. She has been seen by spine surgery and felt not to be a good surgical candidate. She denies any orthopnea, PND, leg edema. Denies any weight gain. No prolonged palpitation, irregular heartbeat, lightheadedness, syncope, ICD discharge. [facility] Medical History (Updated 07/11/25 @ 13:56 by Maxwell Le MD) History of placement of internal cardiac defibrillator Renal artery stenosis Heart failure with reduced ejection fraction Acute on chronic systolic (congestive) heart failure Lumbar spondylosis Ischemic cardiomyopathy COVID-19 vaccine series completed History of femoral angiogram Hiatal hernia CAD (coronary artery disease) AAA (abdominal aortic aneurysm) Hx of myocardial infarction Hypertension Peripheral vascular disease CKD (chronic kidney disease) stage 3, GFR 30-59 ml/min Cervical spondylosis Failed back syndrome, lumbar Surgical History Stented coronary artery Status post cardiac catheterization History of biliary duct stent placement 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 Sister Gynecologic cancer Social History Household Members: None Household Members Other:: Son Housing: Apartment Are you a primary foster care therapist to a significant other at home: No Alcohol intake: never Comment: Pt independent in room with steady gait, refuses fall risk precautions. Patient Tobacco Use Status: Former Tobacco user Tobacco use type: Cigarette Cigarette Packs Per Day: 1 Cigarettes Per Day: 20.0 Years Smoked: 40 e-Cigarette/Vaping Use: Former Use Second Hand Smoke Exposure: Yes Substance Use Type: Marijuana Advance Directives Date on File: 07/06/21 service: No Current occupational status: disabled Current occupation: rt handed Cognitive needs: No Hearing needs: No Vision needs: Yes (Glasses) Review of Systems Const Denies chills, Denies fatigue, Denies fever(s), Denies frequent falls, Denies weakness, Denies weight gain and Denies weight loss ENT Denies dizziness Card Denies chest pain, Denies leg edema, Denies lightheadedness, Denies palpitations, Denies dyspnea, Denies dyspnea on exertion, Denies orthopnea and Denies other (loss of consciousness) Resp Denies cough, Denies dyspnea and Denies dyspnea on exertion GI Denies hematochezia and Denies change in stool character Musc Denies abnormal gait, Denies muscle weakness, Denies numbness, Denies radiating pain into limb and Denies tingling Neuro Denies abnormal gait, Denies dizziness, Denies frequent falls, Denies numbness, Denies tingling and Denies weakness Endo Denies fatigue and Denies palpitations Physical Exam Vital Signs: Last Vital Signs Pulse 60 07/11/25 13:23 BP 142/80 H 07/11/25 13:23 BMI result Body Mass Index 20.9 Const General: cooperative, comfortable, no acute distress, alert and awake Nutritional Appearance: thin and other (Frail elderly woman) Orientation/consciousness: patient oriented x3 Limitations: no limitations Neck Neck: Yes normal visual inspection and Yes no JVD Carotids: bruit Resp Effort & Inspection: normal respiratory effort Auscultation: clear to auscultation bilaterally, no rales, no rhonchi and no wheezes Cardio Rate: regular rate Rhythm: regular rhythm Heart sounds: S1 normal heart sound present, S2 normal heart sound present, no gallops, Murmur heart sound present systolic early and no rubs Peripheral pulses: other (Reduced pulses in the lower extremities) GI Inspection: Yes normal to inspection Skin General skin exam: no rashes or lesions noted and ecchymosis Neuro General: patient oriented x3 and no focal motor deficits Extrem Other: Right groin site with resolving ecchymosis, palpable femoral pulse noted, no bruit General: Yes normal to inspection and No no pedal edema Office Procedures Cardiac Device Check Cardiac Device Check Details: Single-chamber [facility] ICD in place. Programmed in VVI at 40 beats per minute. One episode of high ventricular rate, difficult to distinguish could represent nonsustained VT, versus SVT. Ventricular sensing is excellent. Pacing capture thresholds adequate. Pacing and shock lead impedance is stable. Battery life is 3.4 years [id number] Cardiac Device Check, single lead implantable defibrillator Procedure code (CPT) selection complete Assessment & Plan Assessment & Plan (1) Heart failure with reduced ejection fraction: Code(s): I50.20 - Unspecified systolic (congestive) heart failure Category: Medical Plan: Heart failure with reduced ejection fraction with further worsening in LV ejection fraction 25-30% without any signs or symptoms of heart failure. Does not require ongoing diuretic regimen. However will give her Lasix to be used as PRN basis. Symptoms associated with worsening heart failure were discussed. She understands. Can not tolerate other neurohormonal modulation due to low blood pressure. Able to tolerate metoprolol therapy. Continue the same. Advised to call me with any new symptoms. (2) CAD (coronary artery disease): Code(s): I25.10 - Atherosclerotic heart disease of [place] coronary artery without angina pectoris Category: Medical Qualifiers: Coronary Disease-Associated Artery/Lesion type: [place] artery [place] vs. transplanted heart: [place] heart Associated angina: without angina Qualified Code(s): I25.10 - Atherosclerotic heart disease of [place] coronary artery without angina pectoris Plan: Diffuse and significant vascular disease with prior myocardial infarction. Patient has limiting symptoms suggestive of claudication. She would like to reestablish care with Dr. Mann. Will re-refer her to Dr. Mann for repeat evaluation. Meanwhile she is on aspirin and low-dose oral anticoagulation therapy which should be continued for life. Continue high-intensity statin therapy along with ezetimibe with target goal LDL less than 60 mg/dL. Blood pressure is currently well optimized. (3) ICD (implantable cardioverter-defibrillator) in place: Code(s): Z95.810 - Presence of automatic (implantable) cardiac defibrillator Category: Medical Plan: ICD in place for primary prevention. ICD is working well. Reprogrammed for adequate functioning. Does have 1 episode of high ventricular rate without any therapy. Will continue monitor by device telemetry. Continue metoprolol therapy. Avoidance of stimulants was discussed. Follow up in the clinic in 6 months time, sooner p.r.n.. Thank you for allowing me to partake in her care Orders: Referrals Vascular Surgery Referral I73.9 - Peripheral vascular disease, unspecified Medications: New furosemide (Lasix) 20 mg PO DAILY PRN 20 tabs 2RF CHF symptoms I73.9 - Peripheral vascular disease, unspecified Coding Level of Care Code Est Pt Level 4 (68974) Complex EM visit Add On G2211 Diagnoses Heart failure with reduced ejection fraction I50.20 Coronary artery disease involving [place] coronary artery of [place] heart without angina pectoris I25.10 Coronary Disease-Associated Artery/Lesion type: [place] artery [place] vs. transplanted heart: [place] heart Associated angina: without angina ICD (implantable cardioverter-defibrillator) in place Z95.810 CPT Codes Cardiac Device Check - Cardiac Device 4: [id number] Cardiac Device Check, single lead implantable defibrillator ([id number])
[2025-07-11 13:23] VITALS: BP 142/80; PULSE 60; BMI 20.9
--- OUTSIDE RECORDS SUMMARY | 2025-07-11 17:24 | XMS_ITS | Clinical Summary ---
Author Organization [facility] Address [address] [facility] 7t [place] [address] Care Team Providers Care Filter Assembler Name Role Phone Unavailable Primary Care Provider [...] age to complete this topic Insurance [place] [address] [place] [id number] [facility]
--- OUTSIDE RECORDS SUMMARY | 2025-07-11 17:24 | XMS_ITS | Encounter Summary ---
Author Organization [facility] Address [address] [facility] [address] [place] [address] Phone Care Team Providers Care Applications Sales Consultant Name Role Phone Nhan Sigala MD Primary Care Provider [phone] [phone] Reason for Referral * MRI/CAT Scan - Closed Specialty Diagnoses / Procedures Referred By Contac t Referred To Contact Radiology Diagnoses Cervical radiculopathy Spondylosis of cervical region without myelopathy or radiculopathy Procedures MRI Cervical Spine Lorraine Lr PA Phone: tel: fax: [email or web address] Referral ID Status Reason Start Date Expiration Date Visits Re quested Visits Authorized [id number] Closed 10/10/2019 12/09/2019 1 1 Encounter Details Date Type Department Care Team (Latest Contact Info) Description 10/10/2019 Transcribe Orders Virtual Department [address] [place] [address] Lorraine Lr PA [address] [place] [phone] [email or web address] Spondylosis of cervical region without myelopathy or [...] flow void compatible with occlusion. POS - [id number] Narrative 10/18/2019 5:02 PM EST MRI CERVICAL [...] artery flow void compatible withocclusion. POS - [id number] Lorraine [place] IMG MR XSPECIALTY Final Res ult documented in this encounter Visit Diagnoses Diagnosis Spondylosis of cervical region without myelopathy or radiculopathy- Primary Cervical radiculopathy Brachial neuritis or radiculitis nos Cervical radiculopathy Brachial neuritis or radiculitis nos Spondylosis of cervical region without myelopathy or radiculopathy documented in this encounter Care Teams Applications Sales Consultant Relationship Specialty Start Date End Date Nhan Sigala MD [address] [address] PCP - General 07/07/17 documented as of this encounter Additional Source Comments The information contained in this document represents components of the legal health record. It is not the complete legal health record.[facility]
--- OUTSIDE RECORDS SUMMARY | 2025-07-11 17:24 | XMS_ITS | Encounter Summary ---
Author Organization [facility] Address [address] [facility] [address] [place] [address] Phone Care Team Providers Care Teradata Developer Name Role Phone Nhan Sigala MD Primary Care Provider [phone] [phone] Encounter Details Date Type Department Care Team (Latest Contact Info) Description 10/12/2019 Ancillary Orders [facility] Cardiovascular And Interventional Radiology [address] [place] [address] Yasir Hung MD [address] [place] [address] [email or web address] [email or web address] (sick sinus syndrome) Social [...] dysfunction documented in this encounter Care Teams Teradata Developer Relationship Specialty Start Date End Date Nhan Sigala MD [address] [address] PCP - General 07/07/17 documented as of this encounter Additional Source Comments The information contained in this document represents components of the legal health record. It is not the complete legal health record.[facility]
--- OUTSIDE RECORDS SUMMARY | 2025-07-11 17:24 | XMS_ITS | Encounter Summary ---
Author Organization [facility] Address [address] [place] [address] Phone Care Team Providers Care Armature Repairer Name Role Phone Nhan Sigala MD Primary Care Provider [phone] [phone] Encounter Details Date Type Department Care Team (Late st Contact Info) Description 10/10/2019 Procedure Pass [facility], [address] [address] Social History Tobacco Use Types Packs/Day Years [...] on filedocumented in this encounter Care Teams Armature Repairer Relationship Specialty Start Date End Date Nhan Sigala MD [address] [place] [address] PCP - General 07/07/17 documented as of this encounter Additional Source Comments The information contained in this document represents components of the legal health record. It is not the complete legal health record.[facility]
--- OUTSIDE RECORDS SUMMARY | 2025-07-11 17:25 | XMS_ITS | Patient Health Record ---
Author Organization [facility] Address [address] [place] [address] Care Team Providers Care Traffic Sergeant Name Role Phone Nhan Sigala Primary Care Provider Unruly Negron Unavailable [phone] Reason For Referral No Information Medications Medication [...] Problem Screening for malignant neoplasm of colon ([id number]) Encounter for screening for malignant neoplasm of colon (Z12.11) Active confirmed Problem Computed tomography of abdomen abnormal (31230806299210 107) Abnormal CT scan, stomach (R93.3) Active confirmed Plan Of Treatment Future Test Test Name Order Date UPPER GI ENDOSCOPY 08/05/2017 Insurance Providers Payer Name Payer Address Payer Phone Subscriber Number Group Number Insured Name Patient Relationship to Insured Coverage Start Date Coverage End Date [place] [address] [place] [phone] [id number] JEANNIE YOST Self - patient is the insured Medical (General) History Medical History History ICD Code MS-01/2016--3V-CABG; had a stent put in a pprox 2010 Hypertension Denies DM,CVA,Lung disease Back pain Hyperlipidemia PVD--stent in right leg Reports an andominal aortic aneurysm Surgical History Surgery Date(Month/Year) Back surgery 2016 Cyst removal-ovary 1985 2V-CABG 2015 Broken left humerus--has a franci in place 2010
--- OUTSIDE RECORDS SUMMARY | 2025-07-11 17:25 | XMS_ITS | Clinical Summary ---
Author Organization [facility] Address [address] [facility] [address] [place], [place] [id number] Phone Care Team Providers Care Sky Line Yarder Name Role Phone Nhan Sigala MD Primary Care Provider [phone] [phone] Allergies Active Allergy Reactions Criticality Noted Date [...] this topic Medical Devices Implanted Type Area Valver Device Identifier Shelf Expiration Date Model / Serial / Lot Icd Single-Chamber Ellipse [id number] 12mm Vr 36 Non-Coated Df4 Connector-01/28/2018 Implanted: 8 (Quantity not on file) ICD [employer] [id number] / [id number] / Lead Durata 7fr 52cm Defibrillation Single Coil Optim Insulation Ext/Cristo [place] Df4 Connector-01/28/2018 Implanted: 8 (Quantity not on file) Lead [employer] 7122Q/52 / [id number] / [place] & B Care Teams Sky Line Yarder Relationship Specialty Start Date End Date Nhan Sigala MD [address] [address] PCP - General 07/07/17 Additional Source Comments The information contained in this document represents components of the legal health record. It is not the complete legal health record.[facility]
== END 2025-07-11 13:52 | disposition home or self-care (01) ==
LOC: HO.HCS 13:21
PROVIDERS: PCP Physician Assistant; Visit Provider Internal Medicine Cardiovascular Disease
DX: I50.20 Unspecified systolic (congestive) heart failure (principal); I25.10 Atherosclerotic heart disease of native coronary artery without angina pectoris; Z95.810 Presence of automatic (implantable) cardiac defibrillator
CPT/HCPCS: 93282; 99214; G2211

== ENCOUNTER → 2025-07-11 13:20 | Outpatient (BNVA) | payer MEDICARE, MEDICAID, SELFPAY | PROVIDERS: PCP Physician Assistant; Visit Provider Internal Medicine Cardiovascular Disease | DX: Z45.02 Encounter for adjustment and management of automatic implantable cardiac defibrillator (principal); I11.0 Hypertensive heart disease with heart failure; I50.20 Unspecified systolic (congestive) heart failure; I25.10 Atherosclerotic heart disease of native coronary artery without angina pectoris | CPT/HCPCS: 93282; 99212 ==

== ENCOUNTER 2025-07-13 13:21 | Outpatient (AMB) | payer MEDICARE, MEDICAID, SELFPAY ==
--- NOTE | 2025-07-13 13:25 | A.OFFVIS_ITS ---
Vital Signs 3 07/13/25 13:35 Height 4 ft 11 in Weight 105 lb 8 oz BMI 21.3 BP 132/60 Blood Pressure Location Rt brachial Position Sitting Pulse 57 Pulse Source Pulse Oximeter Pulse Oximetry (%) 98 Oxygen Delivery Method Room Air Intake Visit Reasons: PILL COUNT Intake Note: Luci comes in today for a pill count to oxycodone, patient should have 0 tablets and presents with 20 tablets which she last took today 07/13/25 at 10:30am. Pain today 03/30 Aircraft Refueler Required: No Accompanied by: Self / Same As Patient Allergies sacubitril (From Entresto) Adverse Reaction (Severe, Verified 07/13/25 13:35) hyperkalemia valsartan (From Entresto) Adverse Reaction (Severe, Verified 07/13/25 13:35) hyperkalemia HPI Comments Details: Patient presents today for a pill count. Patient is supposed to have #0 pills, in her possession has #20 pills. This demonstrates a responsible attitude in regards to the medication regimen. She reports taking her medication as prescribed, with the exception of a fifth pill, which she only takes on day for significant and persistent back, neck and hip pain. There have been no changes in her medication regimen, and she denies experiencing constipation even when taking up to five pills. Denies any fever, dizziness, chest pain, shortness of breaths, constipation, nausea, sedation, dizziness, or urinary retention. Past Procedures: 01/05/25: Left L5 TFESI--minimal relief for >1 week [facility] Medical History History of placement of internal cardiac defibrillator Renal artery stenosis Heart failure with reduced ejection fraction Acute on chronic systolic (congestive) heart failure Lumbar spondylosis Ischemic cardiomyopathy COVID-19 vaccine series completed History of femoral angiogram Hiatal hernia CAD (coronary artery disease) AAA (abdominal aortic aneurysm) Hx of myocardial infarction Hypertension Peripheral vascular disease CKD (chronic kidney disease) stage 3, GFR 30-59 ml/min Cervical spondylosis Failed back syndrome, lumbar Surgical History Stented coronary artery Status post cardiac catheterization History of biliary duct stent placement 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 Sister Gynecologic cancer Social History Household Members: None Household Members Other:: Son Housing: Apartment Are you a primary landcare facilitator to a significant other at home: No Alcohol intake: never Comment: Pt independent in room with steady gait, refuses fall risk precautions. Patient Tobacco Use Status: Former Tobacco user Tobacco use type: Cigarette Cigarette Packs Per Day: 1 Cigarettes Per Day: 20.0 Years Smoked: 40 e-Cigarette/Vaping Use: Former Use Second Hand Smoke Exposure: Yes Substance Use Type: Marijuana Advance Directives Date on File: 07/06/21 service: No Current occupational status: disabled Current occupation: rt handed Cognitive needs: No Hearing needs: No Vision needs: Yes (Glasses) Review of Systems Const All systems reviewed & are unremarkable except as noted in HPI and below Physical Exam On exam today: Appears afebrile. Alert and oriented. Mood and affect appropriate. Follows and participates in conversation appropriately. Respiratory effort is unlabored. No cough. Able to transition from sit to stand unassisted. Ambulates with slow, mildly antalgic gait. No limping. Eyes General: appearance normal, both eyes and all related structures Psych Appearance: grossly normal and well kempt Mental Status: mental status grossly normal Speech and movement: Normal speech and movement present and Clear speech present Affect: normal affect Attitude: cooperative Thought process: Normal thought process present Thought content: Normal thought content present, suicidality (none), no hallucinations and Depressive thoughts present Insight: Good insight present (Psych) Judgement: Good judgement present (Psych) Results Reviewed Results Reviewed: XR LUMBOSACRAL SPINE WITH OBLIQUES 04/27/23 CLINICAL INFORMATION: Postlaminectomy syndrome. COMPARISON: Radiographs dated 05/10/2019. TECHNIQUE: AP, both oblique, and lateral (neutral, flexion and extension) views of the lumbar spine. Lateral view of the lumbosacral junction. FINDINGS: There is bony demineralization. At L3-L4, there is a 4 mm anterolisthesis. There is well-maintained alignment status-post L4-L5 posterior fusion and discectomy, with intact posterior fixator rods, pedicular screws and disc spacer. No hardware failure or loosening is seen. There is no acute fracture or spondylolisthesis. No instability is seen with flexion or extension. No spondylolysis defect is seen on the oblique views. There are aortoiliac atherosclerotic calcifications. Iliac stent material is noted. IMPRESSION: 1. There is well-maintained alignment status-post L4-L5 posterior fusion and discectomies. No hardware failure or loosening is seen. 2. There is mild degenerative disc disease at L3-L4. 3. No instability is seen with flexion or extension. XR SACROILIAC JOINTS 04/27/23 CLINICAL INFORMATION: Sacrococcygeal disorders. COMPARISON: Hip radiographs dated 06/19/2021 and 11/06/2017. FINDINGS: Bones and soft tissues are normal. No fracture. Alignment is anatomic. Sacroiliac joint spaces are well-maintained without erosions or surrounding sclerosis. The acetabular joint spaces are well-maintained. The pubic symphysis is intact. Lumbar orthopedic hardware and right iliac stent material are noted. IMPRESSION: Normal sacroiliac joints. BONE DENSITOMETRY 03/22/24 Osteopenia based on the lowest T-score value of -2.3 in the total femur applying World Health Organization criteria. Assessment & Plan Assessment & Plan (1) Lumbar radicular syndrome: Code(s): M54.16 - Radiculopathy, lumbar region Category: Medical (2) Failed back syndrome, lumbar: Code(s): M96.1 - Postlaminectomy syndrome, not elsewhere classified Category: Medical (3) Lumbosacral disc herniation: Code(s): M51.27 - Other intervertebral disc displacement, lumbosacral region Category: Medical (4) Lumbar spondylosis: Code(s): M47.816 - Spondylosis without myelopathy or radiculopathy, lumbar region Category: Medical (5) Sacroiliac joint pain: Code(s): M53.3 - Sacrococcygeal disorders, not elsewhere classified Category: Medical (6) Opioid contract exists: Code(s): Z79.891 - joint terminal attack controller (current) use of opiate analgesic Category: Medical Plan Patient has shown accountability for her medication regimen and the pill counts were accurate. There is no evidence of misuse, abuse or diversion at this time. 4Lesst reviewed. Script sent for oxycodone 5 mg up to 5x/day prn with advanced date of 07/16/25. Patient has Narcan at home. She also takes Seroquel 25 mg at bedtime, occasionally for insomnia which she takes few hours apart from oxycodone. All questions were answered and the patient is in agreement with the plan. Follow up in 4-5 weeks for a pill count or sooner if needed. Medications: Refilled 2 oxycodone 5 mg orally 1-2 tablets every 6 hours up to 5 times per day PRN; Partial Fill upon patient request. 150 tabs 0RF pain (scale score 7-10) 30 days MDD 5 M47.816 - Spondylosis without myelopathy or radiculopathy, lumbar region, M96.1 - Postlaminectomy syndrome, not elsewhere classified, Z79.891 - joint terminal attack controller (current) use of opiate analgesic Coding Level of Care Code Est Pt Level 4 (89028) Complex EM visit Add On G2211 Diagnoses Lumbar radicular syndrome M54.16 Failed back syndrome, lumbar M96.1 Lumbosacral disc herniation M51.27 Lumbar spondylosis M47.816 Sacroiliac joint pain M53.3 Opioid contract exists Z79.891
[2025-07-13 13:35] VITALS: BP 132/60; PULSE 57; O2SAT 98; BMI 21.3
== END 2025-07-13 13:40 | disposition home or self-care (01) ==
LOC: HO.PMC 13:22
PROVIDERS: PCP Physician Assistant; Visit Provider Nurse Practitioner Family
DX: M54.16 Radiculopathy, lumbar region (principal); M96.1 Postlaminectomy syndrome, not elsewhere classified; M51.27 Other intervertebral disc displacement, lumbosacral region; M47.816 Spondylosis without myelopathy or radiculopathy, lumbar region; M53.3 Sacrococcygeal disorders, not elsewhere classified; Z79.891 Long term (current) use of opiate analgesic
CPT/HCPCS: 99214; G2211

== ENCOUNTER → 2025-07-13 13:21 | Outpatient (BNVA) | payer MEDICARE, MEDICAID, SELFPAY | PROVIDERS: PCP Physician Assistant; Visit Provider Nurse Practitioner Family | DX: Z51.81 Encounter for therapeutic drug level monitoring (principal); M54.16 Radiculopathy, lumbar region; M96.1 Postlaminectomy syndrome, not elsewhere classified; M51.27 Other intervertebral disc displacement, lumbosacral region; M47.816 Spondylosis without myelopathy or radiculopathy, lumbar region; M53.3 Sacrococcygeal disorders, not elsewhere classified; Z79.891 Long term (current) use of opiate analgesic | CPT/HCPCS: 99212 ==

== ENCOUNTER 2025-08-01 14:23 | Outpatient (AMB) | payer MEDICARE, MEDICAID, SELFPAY ==
--- NOTE | 2025-08-01 14:46 | A.OFFVIS_ITS ---
Vital Signs 08/01/25 14:48 Height 4 ft 11 in Weight 105 lb BMI 21.2 Intake Visit Reasons: OV f/u-Left basal jt injection last inj 03/28/25 Intake Note: Luci is a 69 year old female who presents today for her left basal joint s/p injection 03/28/25. States last injection helped relief pain for about 3 months and would like to repeat injection today. Allergies sacubitril (From Entresto) Adverse Reaction (Severe, Verified 08/01/25 14:50) hyperkalemia valsartan (From Entresto) Adverse Reaction (Severe, Verified 08/01/25 14:50) hyperkalemia HPI HPI OV f/u-Left basal jt injection last inj 03/28/25: Details: Luci is a 68 year old right hand dominant woman with known left basal joint OA.She was last seen, and injected, on 03/28/25 She says her last injection was very helpful and she would like to repeat today. She finds good relief from wearing her comfort cool brace. She complains of new basal joint pain in her right hand and is requesting a brace. She says this is tolerable enough she does not want an injection She states she takes Oxycodone for her back pain. 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 She smokes weed primarily at night for pain relief, relaxation, and to boost her appetite. [facility] Medical History History of placement of internal cardiac defibrillator Renal artery stenosis Heart failure with reduced ejection fraction Acute on chronic systolic (congestive) heart failure Lumbar spondylosis Ischemic cardiomyopathy COVID-19 vaccine series completed History of femoral angiogram Hiatal hernia CAD (coronary artery disease) AAA (abdominal aortic aneurysm) Hx of myocardial infarction Hypertension Peripheral vascular disease CKD (chronic kidney disease) stage 3, GFR 30-59 ml/min Cervical spondylosis Failed back syndrome, lumbar Surgical History Stented coronary artery Status post cardiac catheterization History of biliary duct stent placement 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 Sister Gynecologic cancer Social History Household Members: None Household Members Other:: Son Housing: Apartment Are you a primary direct care professional to a significant other at home: No Alcohol intake: never Comment: Pt independent in room with steady gait, refuses fall risk precautions. Patient Tobacco Use Status: Former Tobacco user Tobacco use type: Cigarette Cigarette Packs Per Day: 1 Cigarettes Per Day: 20.0 Years Smoked: 40 e-Cigarette/Vaping Use: Former Use Second Hand Smoke Exposure: Yes Substance Use Type: Marijuana Advance Directives Date on File: 07/06/21 service: No Current occupational status: disabled Current occupation: rt handed Cognitive needs: No Hearing needs: No Vision needs: Yes (Glasses) Physical Exam Vital Signs: BMI result Body Mass Index 21.2 Const General: no acute distress and alert Orientation/consciousness: patient oriented x3 Neuro General: patient oriented x3 Extrem Other: Evaluation of Left Upper Extremity: The patient is alert, oriented, and in no acute distress Neuro: Median, Ulnar, Radial nerves motor and sensory intact and sensation is normal to the tips of all digits Vascular: Cap refill brisk ROM: She can make a fist and extend all of her digits. She can oppose her thumb to all digits. She is most tender about the basal joint of the left thumb. Positive CMC grind Positive shoulder sign Not particularly tender over the 1st dorsal compartment or the MCP joint Psych Appearance: grossly normal Affect: normal affect Attitude: cooperative Office Procedures AMB Fracture Care Details: No fracture, injection Fracture Billing Code: Fracture Billing Code Assessment & Plan Assessment & Plan (1) Arthritis of carpometacarpal (CMC) joint of left thumb: Code(s): M18.12 - Unilateral primary osteoarthritis of first carpometacarpal joint, left hand Category: Medical (2) Opioid contract exists: Code(s): Z79.891 - predatory animal exterminator (current) use of opiate analgesic Category: Medical (3) Pain of right thumb: Code(s): M79.644 - Pain in right finger(s) Category: Medical Plan Assessment & Plan: 1. Left Basal joint arthritis, S/P repeat injections Date of Injections: 08/01/25, 03/28/25, 09/27/24, 05/24/24, 02/03/24, 09/23/23, 01/21/23, 07/07/22, 01/29/22 I educated her about this condition I discussed treatment options, including the possibility of surgery in the future She says her most recent injection gave her relief for ~3 months, which she was happy about After discussing these options, the patient would like to proceed with a repeat injection today I discussed activity modification, they should limit or avoid any heavy or repetitive pinching or gripping activities She should continue to wear her comfort cool brace with daily activities Injection #1: The risks and benefits of a steroid injection including but not limited to risk of damage to blood vessels, nerve, tendon, infection, skin bleaching, persistent or worsening pain, and failure to improve symptoms were discussed with the patient and they wish to proceed with the steroid injection. Once consent was obtained the skin over the dorsum of the Left basal joint was sterilely prepped. The joint was then injected with a combination of 1 mL of dexamethasone (4mg/ml) and 1% plain Lidocaine. The patient appears to have shelia erated the procedure well and with no complications. She had good early relief before leaving clinic today. She knows that they may not have another steroid injection into this joint for least 4 months. 2. Right thumb pain Likely basal joint OA, need radiographs to confirm This is a new complaint She was fitted for a comfort cool brace to wear with daily activities No injection wanted at this time. Please note that this patient has a significant cardiac condition, and evidently had a major heart attack following spine surgery. She has an implantable cardiac defibrillator in place, and is on Xarelto. She also has other medical conditions that make surgery less attractive. She says she was told that she should only have surgery if it is absolutely necessary. Recommended the use of Tylenol or Ibuprofen OTC to help with relief once the numbing medication wears off. Follow up will be in about 4 months for another injection. She will call the office if she is not needing the injection at that time. Scribed for Gina Wallace MD by Nader Lubanszky, medical voucher clerk, on 08/01/25 at 3:05 PM, EST. Coding Level of Care Code Est Pt Level 3 (27381) Diagnoses Arthritis of carpometacarpal (CMC) joint of left thumb M18.12 Opioid contract exists Z79.891 Pain of right thumb M79.644 CPT Codes Fracture Care - Fracture Billing Code: Fracture Billing Code ([id number])
[2025-08-01 14:48] VITALS: BMI 21.2
--- OUTSIDE RECORDS SUMMARY | 2025-08-01 16:06 | XMS_ITS | Encounter Summary ---
Author Organization [facility] Address [address] [facility] [address] [place] [address] Phone Care Team Providers Care Wax Molder Name Role Phone Nhan Sigala MD Primary Care Provider [phone] [phone] Encounter Details Date Type Department Care Team (Latest Contact Info) Description 10/12/2019 Ancillary Orders [facility] Cardiovascular And Interventional Radiology [address] [place] [address] Yasir Hung MD [address] [place] [address] [email or web address] (sick sinus syndrome) Social [...] dysfunction documented in this encounter Care Teams Wax Molder Relationship Specialty Start Date End Date Nhan Sigala MD [address] [address] PCP - General 07/07/17 documented as of this encounter Additional Source Comments The information contained in this document represents components of the legal health record. It is not the complete legal health record.[facility]
--- OUTSIDE RECORDS SUMMARY | 2025-08-01 16:06 | XMS_ITS | Encounter Summary ---
Author Organization [facility] Address [address] [facility] [address] [place] [address] Phone Care Team Providers Care Sole Cutter Name Role Phone Nhan Sigala MD Primary Care Provider [phone] [phone] Encounter Details Date Type Department Care Team (Late st Contact Info) Description 10/10/2019 Procedure Pass [facility], [address] [address] Social History Tobacco Use Types Packs/Day Years [...] on filedocumented in this encounter Care Teams Sole Cutter Relationship Specialty Start Date End Date Nhan Sigala MD [address] [place] [address] PCP - General 07/07/17 documented as of this encounter Additional Source Comments The information contained in this document represents components of the legal health record. It is not the complete legal health record.[facility]
--- OUTSIDE RECORDS SUMMARY | 2025-08-01 16:06 | XMS_ITS | Clinical Summary ---
Author Organization [employer] Address [address] [facility] 7t [place] [address] Care Team Providers Care Hot Mill Worker Name Role Phone Unavailable Primary Care Provider [...] age to complete this topic Insurance [place] [address] [place] [phone] [facility]
--- OUTSIDE RECORDS SUMMARY | 2025-08-01 16:06 | XMS_ITS | Encounter Summary ---
Author Organization [facility] Address [address] [facility] [address] [place] [address] Phone Care Team Providers Care Behavioral Health Professional Name Role Phone Nhan Sigala MD Primary Care Provider [phone] [phone] Reason for Referral * MRI/CAT Scan - Closed Specialty Diagnoses / Procedures Referred By Contac t Referred To Contact Radiology Diagnoses Cervical radiculopathy Spondylosis of cervical region without myelopathy or radiculopathy Procedures MRI Cervical Spine Lorraine Lr PA Phone: tel: fax: [email or web address] Referral ID Status Reason Start Date Expiration Date Visits Re quested Visits Authorized [id number] Closed 10/10/2019 12/09/2019 1 1 Encounter Details Date Type Department Care Team (Latest Contact Info) Description 10/10/2019 Transcribe Orders Virtual Department [address] [place] [address] Lorraine Lr PA [address] [place] [id number] [email or web address] Spondylosis of cervical region without myelopathy or [...] flow void compatible with occlusion. POS - [id number] Narrative 10/18/2019 5:02 PM EST MRI CERVICAL [...] artery flow void compatible withocclusion. POS - [id number] Lorraine [place] IMG MR XSPECIALTY Final Res ult documented in this encounter Visit Diagnoses Diagnosis Spondylosis of cervical region without myelopathy or radiculopathy- Primary Cervical radiculopathy Brachial neuritis or radiculitis nos Cervical radiculopathy Brachial neuritis or radiculitis nos Spondylosis of cervical region without myelopathy or radiculopathy documented in this encounter Care Teams Behavioral Health Professional Relationship Specialty Start Date End Date Nhan Sigala MD [address] [address] PCP - General 07/07/17 documented as of this encounter Additional Source Comments The information contained in this document represents components of the legal health record. It is not the complete legal health record.[facility]
--- OUTSIDE RECORDS SUMMARY | 2025-08-01 16:06 | XMS_ITS | Patient Health Record ---
Author Organization [facility] Address [address] [place] [address] Care Team Providers Care Betting Agency Counter Clerk Name Role Phone Nhan Sigala Primary Care Provider Unruly Negron Unavailable [phone] Reason For Referral No Information Medications Medication [...] Problem Screening for malignant neoplasm of colon (788933188) Encounter for screening for malignant neoplasm of colon (Z12.11) Active confirmed Problem Computed tomography of abdomen abnormal (12846413143014 107) Abnormal CT scan, stomach (R93.3) Active confirmed Plan Of Treatment Future Test Test Name Order Date UPPER GI ENDOSCOPY 08/05/2017 Insurance Providers Payer Name Payer Address Payer Phone Subscriber Number Group Number Insured Name Patient Relationship to Insured Coverage Start Date Coverage End Date MEDICAID OF [employer] [address] [place] [phone] [id number] JEANNIE YOST Self - patient is the insured Medical (General) History Medical History History ICD Code [place]-01/2016--3V-CABG; had a stent put in a pprox 2010 Hypertension Denies DM,CVA,Lung disease Back pain Hyperlipidemia PVD--stent in right leg Reports an andominal aortic aneurysm Surgical History Surgery Date(Month/Year) Back surgery 2016 Cyst removal-ovary 1985 2V-CABG 2015 Broken left humerus--has a franci in place 2010
--- OUTSIDE RECORDS SUMMARY | 2025-08-01 16:06 | XMS_ITS | Clinical Summary ---
Author Organization [facility] Address [address] [facility] [address] [place], [place] [address] Phone Care Team Providers Care Bilingual Teacher Name Role Phone Nhan Sigala MD Primary Care Provider [phone] Allergies Active Allergy Reactions Criticality Noted Date [...] this topic Medical Devices Implanted Type Area Jig Worker Device Identifier Shelf Expiration Date Model / Serial / Lot Icd Single-Chamber Ellipse [id number] 12mm Vr 36 Non-Coated Df4 Connector-01/28/2018 Implanted: 8 (Quantity not on file) ICD [employer] [id number] / [id number] / Lead Durata 7fr 52cm Defibrillation Single Coil Optim Insulation Ext/Cristo Lamar Df4 Connector-01/28/2018 Implanted: 8 (Quantity not on file) Lead [employer] 7122Q/52 / [id number] / [place] & B Care Teams Bilingual Teacher Relationship Specialty Start Date End Date Nhan Sigala MD [address] [address] PCP - General 07/07/17 Additional Source Comments The information contained in this document represents components of the legal health record. It is not the complete legal health record.[facility]
== END 2025-08-01 15:53 | disposition home or self-care (01) ==
LOC: HO.HOS 14:24
PROVIDERS: PCP Physician Assistant; Visit Provider Orthopaedic Surgery
DX: M18.12 Unilateral primary osteoarthritis of first carpometacarpal joint, left hand (principal); Z79.891 Long term (current) use of opiate analgesic; M79.644 Pain in right finger(s)
CPT/HCPCS: 20600; 99214

== ENCOUNTER → 2025-08-01 14:23 | Outpatient (BNVA) | payer MEDICARE, MEDICAID, SELFPAY | PROVIDERS: PCP Physician Assistant; Visit Provider Orthopaedic Surgery | DX: M18.12 Unilateral primary osteoarthritis of first carpometacarpal joint, left hand (principal); M79.644 Pain in right finger(s); Z79.891 Long term (current) use of opiate analgesic | CPT/HCPCS: 20600; 99212; J1100; J2003 ==

== ENCOUNTER 2025-08-10 12:53 | Outpatient (AMB) | payer MEDICARE, MEDICAID, SELFPAY ==
--- NOTE | 2025-08-10 12:58 | MHC.OFFVIS ---
Vital Signs 08/10/25 13:09 Height 4 ft 11 in Weight 105 lb 2 oz BMI 21.2 BP 196/86 H Blood Pressure Location Rt brachial Position Sitting Pulse 64 Pulse Source Pulse Oximeter Pulse Oximetry (%) 99 Oxygen Delivery Method Room Air Intake Visit Reasons: Pill Count Intake Note: Luci comes in today for a pill count to oxycodone, patient should have 0 tablets and presents with 33 tablets which she last took today 08/10/25 at 11:30pm. Pain today 04/30 Broiler Chef Or Cook Required: No Accompanied by: Self / Same As Patient Allergies sacubitril (From Entresto) Adverse Reaction (Severe, Verified 08/10/25 13:08) hyperkalemia valsartan (From Entresto) Adverse Reaction (Severe, Verified 08/10/25 13:08) hyperkalemia HPI Comments Details: Patient presents today for a pill count. Patient is supposed to have #0 pills, in her possession has #33 pills. This demonstrates a responsible attitude in regards to the medication regimen. She reports taking her medication as prescribed, with the exception of a fifth pill, which she only takes on day for significant and persistent back, neck and hip pain. There have been no changes in her medication regimen, and she denies experiencing constipation even when taking up to five pills. A pill count last month revealed a surplus of 20 pills, and this month revealed a surplus of 33 pills, indicating the fifth daily dose is not consistently taken. The patient reports that the medication sometimes works very well, but at other times, pain on the left sided low back and leg pain persists. The patient occasionally takes two tablets at once for severe pain and denies experiencing drowsiness or dizziness from this. She reports recently undergoing repeat cortisone injection on 08/01/[address] [facility] Hand Surgery for left basal joint arthritis with partial relief. Denies any fever, dizziness, chest pain, shortness of breaths, constipation, nausea, sedation, dizziness, or urinary retention. Pain Management - Analgesia: The patient is prescribed oxycodone 5 mg, which was increased from every 6 hours to up to 5 times per day. - The patient reports variable efficacy, stating it sometimes works well but the pain persists at other times. - Adverse Effects: The patient denies drowsiness, even when taking two pills at once for severe pain. - Aberrant Drug Related Behaviors: A pill count revealed a surplus of 33 pills, indicating underutilization rather than overuse. - The patient confirmed possession of Narcan. Past Procedures: 01/05/25: Left L5 TFESI--minimal relief for >1 week [facility] Medical History History of placement of internal cardiac defibrillator Renal artery stenosis Heart failure with reduced ejection fraction Acute on chronic systolic (congestive) heart failure Lumbar spondylosis Ischemic cardiomyopathy COVID-19 vaccine series completed History of femoral angiogram Hiatal hernia CAD (coronary artery disease) AAA (abdominal aortic aneurysm) Hx of myocardial infarction Hypertension Peripheral vascular disease CKD (chronic kidney disease) stage 3, GFR 30-59 ml/min Cervical spondylosis Failed back syndrome, lumbar Surgical History Stented coronary artery Status post cardiac catheterization History of biliary duct stent placement 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 Sister Gynecologic cancer Social History Household Members: None Household Members Other:: Son Housing: Apartment Are you a primary physician locums urgent care to a significant other at home: No Alcohol intake: never Comment: Pt independent in room with steady gait, refuses fall risk precautions. Patient Tobacco Use Status: Former Tobacco user Tobacco use type: Cigarette Cigarette Packs Per Day: 1 Cigarettes Per Day: 20.0 Years Smoked: 40 e-Cigarette/Vaping Use: Former Use Second Hand Smoke Exposure: Yes Substance Use Type: Marijuana Advance Directives Date on File: 07/06/21 service: No Current occupational status: disabled Current occupation: rt handed Cognitive needs: No Hearing needs: No Vision needs: Yes (Glasses) Review of Systems Const Details: - Musculoskeletal: Reports chronic low back and hip pain, with persistent pain on the left side at times. - Neurological: Denies drowsiness from medication. - All other systems were reviewed and are negative. All systems reviewed & are unremarkable except as noted in HPI and below Physical Exam On exam today: Appears afebrile. Alert and oriented. Mood and affect appropriate. Follows and participates in conversation appropriately. Respiratory effort is unlabored. No cough. Able to transition from sit to stand unassisted. Ambulates with slow, mildly antalgic gait. No limping. Eyes General: appearance normal, both eyes and all related structures Resp Effort & Inspection: normal respiratory effort, able to speak in complete sentences, no cough, respiratory distress and No symmetric chest movement Psych Appearance: grossly normal and well kempt Mental Status: mental status grossly normal Speech and movement: Normal speech and movement present and Clear speech present Affect: normal affect Attitude: cooperative Thought process: Normal thought process present Thought content: Normal thought content present, suicidality (none), no hallucinations and Depressive thoughts present Insight: Good insight present (Psych) Judgement: Good judgement present (Psych) Assessment & Plan Assessment & Plan (1) Lumbar radicular syndrome: Code(s): M54.16 - Radiculopathy, lumbar region Category: Medical (2) Failed back syndrome, lumbar: Code(s): M96.1 - Postlaminectomy syndrome, not elsewhere classified Category: Medical (3) Lumbosacral disc herniation: Code(s): M51.27 - Other intervertebral disc displacement, lumbosacral region Category: Medical (4) Lumbar spondylosis: Code(s): M47.816 - Spondylosis without myelopathy or radiculopathy, lumbar region Category: Medical (5) Sacroiliac joint pain: Code(s): M53.3 - Sacrococcygeal disorders, not elsewhere classified Category: Medical (6) Opioid contract exists: Code(s): Z79.891 - assisted (current) use of opiate analgesic Category: Medical Plan Patient has shown accountability for her medication regimen and the pill counts were accurate. There is no evidence of misuse, abuse or diversion at this time. [place] reviewed. The patient's oxycodone regimen was reviewed. Due to a consistent surplus of pills noted on pill counts, including 33 pills at this visit, it is evident the patient is not utilizing the fifth daily dose of oxycodone 5 mg. The decision was made to return to the patient's original dosing schedule. The patient's use and pain control will be reassessed at the next follow-up visit. Script sent for oxycodone 5 mg Q6H prn with advanced date of 08/16/25. Patient has Narcan at home. All questions were answered and the patient is in agreement with the plan. Follow up in 4-5 weeks for a pill count or sooner if needed. Medications: Changed From oxycodone 5 mg orally 1-2 tablets every 6 hours up to 5 times per day PRN; Partial Fill upon patient request. 30 days 150 tabs 0RF pain (scale score 7-10) MDD 5 M47.816 - Spondylosis without myelopathy or radiculopathy, lumbar region, M96.1 - Postlaminectomy syndrome, not elsewhere classified, Z79.891 - assisted (current) use of opiate analgesic To oxycodone 5 mg PO Q6H PRN 120 tabs 0RF pain (scale score 7-10) 30 days MDD 4 M47.816 - Spondylosis without myelopathy or radiculopathy, lumbar region, M96.1 - Postlaminectomy syndrome, not elsewhere classified, Z79.891 - assisted (current) use of opiate analgesic Coding Level of Care Code Complex visit Add On G2211 Diagnoses Lumbar radicular syndrome M54.16 Failed back syndrome, lumbar M96.1 Lumbosacral disc herniation M51.27 Lumbar spondylosis M47.816 Sacroiliac joint pain M53.3 Opioid contract exists Z79.891
[2025-08-10 13:09] VITALS: BP 196/86; PULSE 64; O2SAT 99; BMI 21.2
== END 2025-08-10 13:17 | disposition home or self-care (01) ==
LOC: HO.PMC 12:54
PROVIDERS: PCP Physician Assistant; Visit Provider Nurse Practitioner Family
DX: M54.16 Radiculopathy, lumbar region (principal); M96.1 Postlaminectomy syndrome, not elsewhere classified; M51.27 Other intervertebral disc displacement, lumbosacral region; M47.816 Spondylosis without myelopathy or radiculopathy, lumbar region; M53.3 Sacrococcygeal disorders, not elsewhere classified; Z79.891 Long term (current) use of opiate analgesic
CPT/HCPCS: 99213; G2211

== ENCOUNTER → 2025-08-10 12:53 | Outpatient (BNVA) | payer MEDICARE, MEDICAID, SELFPAY | PROVIDERS: PCP Physician Assistant; Visit Provider Nurse Practitioner Family | DX: M96.1 Postlaminectomy syndrome, not elsewhere classified (principal); M54.16 Radiculopathy, lumbar region; M51.27 Other intervertebral disc displacement, lumbosacral region; M47.816 Spondylosis without myelopathy or radiculopathy, lumbar region; M53.3 Sacrococcygeal disorders, not elsewhere classified; Z51.81 Encounter for therapeutic drug level monitoring; Z79.891 Long term (current) use of opiate analgesic | CPT/HCPCS: 99212 ==

== ENCOUNTER 2025-08-10 14:25 | Outpatient (AMB) | payer MEDICARE, MEDICAID, SELFPAY ==
--- NOTE | 2025-08-10 14:26 | A.SPINEOV_ITS ---
Intake Visit Reasons: 6 month f/u Intake Note: Ms. Grady is here today for her 6 month F/u. Receiving Clerk Required: No Allergies sacubitril (From Entresto) Adverse Reaction (Severe, Verified 08/10/25 13:08) hyperkalemia valsartan (From Entresto) Adverse Reaction (Severe, Verified 08/10/25 13:08) hyperkalemia Assessment & Plan Assessment & Plan (1) Failed back syndrome, lumbar: Code(s): M96.1 - Postlaminectomy syndrome, not elsewhere classified Category: Medical Plan Mrs Grady is here in follow-up. I wanted to see her for six-month visit just to check on her and see how she was doing. 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 Her pain is still fairly well managed with daily oxycodone and lifestyle modifications. She had a very complicated postoperative recovery as well as cardiac complications during her original surgery so we have a very high threshold to intervene or do any kind of surgery on her. Since her pain is manageable at this point, we will just let her continue to carry on with life. If things change and she wants to come back and discuss we would be happy to see her down the road. Total amount of time spent in this visit was 20 minutes in discussion of symptoms, lumbar x-rays imaging results and subsequent plan of care Erlin Wheeler MD,PhD [facility] Coding Level of Care Code Est Pt Level 3 (50443) Diagnoses Failed back syndrome, lumbar M96.1
--- OUTSIDE RECORDS SUMMARY | 2025-08-10 19:47 | XMS_ITS | Encounter Summary ---
Author Organization [facility] Address [address] [facility] [address] [place] [address] Phone Care Team Providers Care Agricultural Purchasing Agent Name Role Phone Nhan Sigala MD Primary Care Provider [phone] [phone] Reason for Referral * MRI/CAT Scan - Closed Specialty Diagnoses / Procedures Referred By Contac t Referred To Contact Radiology Diagnoses Cervical radiculopathy Spondylosis of cervical region without myelopathy or radiculopathy Procedures MRI Cervical Spine Lorraine Lr PA Phone: tel: fax: [email or web address] Referral ID Status Reason Start Date Expiration Date Visits Re quested Visits Authorized [id number] Closed 10/10/2019 12/09/2019 1 1 Encounter Details Date Type Department Care Team (Latest Contact Info) Description 10/10/2019 Transcribe Orders Virtual Department [address] [place] [address] Lorraine Lr PA [address] [place] [phone] [email or web address] Spondylosis of cervical region without myelopathy or [...] flow void compatible with occlusion. POS - [id number] Narrative 10/18/2019 5:02 PM EST MRI CERVICAL [...] artery flow void compatible withocclusion. POS - [id number] Lorraine [place] IMG MR XSPECIALTY Final Res ult documented in this encounter Visit Diagnoses Diagnosis Spondylosis of cervical region without myelopathy or radiculopathy- Primary Cervical radiculopathy Brachial neuritis or radiculitis nos Cervical radiculopathy Brachial neuritis or radiculitis nos Spondylosis of cervical region without myelopathy or radiculopathy documented in this encounter Care Teams Agricultural Purchasing Agent Relationship Specialty Start Date End Date Nhan Sigala MD [address] [address] PCP - General 07/07/17 documented as of this encounter Additional Source Comments The information contained in this document represents components of the legal health record. It is not the complete legal health record.[facility]
--- OUTSIDE RECORDS SUMMARY | 2025-08-10 19:47 | XMS_ITS | Clinical Summary ---
Author Organization [employer] Address [address] [facility] [address] [place] [address] Care Team Providers Care Senior Net Web Developer Name Role Phone Unavailable Primary Care Provider [...] 60 years or older (1 - Risk 50-74 years 1-dose series) 2004 COVID-19 Vaccine ( - season) 2025 09/24/2022, [...] age to complete this topic Insurance [place] [address] [place] [id number] [facility]
--- OUTSIDE RECORDS SUMMARY | 2025-08-10 19:47 | XMS_ITS | Encounter Summary ---
Author Organization [facility] Address [address] [facility] [address] [place] [address] Phone Care Team Providers Care Staff Development Educator Name Role Phone Nhan Sigala MD Primary Care Provider [phone] [phone] Encounter Details Date Type Department Care Team (Late st Contact Info) Description 10/10/2019 Procedure Pass [facility], [address] [address] Social History Tobacco Use Types Packs/Day Years [...] on filedocumented in this encounter Care Teams Staff Development Educator Relationship Specialty Start Date End Date Nhan Sigala MD [address] [place] [id number] PCP - General 07/07/17 documented as of this encounter Additional Source Comments The information contained in this document represents components of the legal health record. It is not the complete legal health record.[facility]
--- OUTSIDE RECORDS SUMMARY | 2025-08-10 19:47 | XMS_ITS | Encounter Summary ---
Author Organization [facility] Address [address] [facility] [address] [place] [address] Phone Care Team Providers Care Process Controls Technician Name Role Phone Nhan Sigala MD Primary Care Provider [phone] [phone] Encounter Details Date Type Department Care Team (Latest Contact Info) Description 10/12/2019 Ancillary Orders [facility] [address] [place] [address] Yasir Hung MD [address] [place] [address] [email or web address] [email or web address] (sick sinus syndrome) Social [...] dysfunction documented in this encounter Care Teams Process Controls Technician Relationship Specialty Start Date End Date Nhan Sigala MD [address] [address] PCP - General 07/07/17 documented as of this encounter Additional Source Comments The information contained in this document represents components of the legal health record. It is not the complete legal health record.[facility]
--- OUTSIDE RECORDS SUMMARY | 2025-08-10 19:47 | XMS_ITS | Patient Health Record ---
Author Organization [facility] Address [address] [place] [address] Care Team Providers Care Formal Waiter/Waitress Name Role Phone Nhan Sigala Primary Care Provider Unruly Negron Unavailable [phone] Reason For Referral No Information Medications Medication SIG (Take, Route, Frequency, Duration) Notes Start Date End Date Status Gabapentin 300 MG Capsule 6 capsule befo re bedtime Orally daily Active oxyCODONE HCl 5 MG Tablet 1 tablet as ne eded Orally QID Active Aspir-81 81 MG Tablet Delayed Release 1 tablet Orally Once a day Active Magnesium 500 MG Tablet 1 tablet with a meal Orally Once a day Active Tylenol 325 MG Tablet 2 tablets as neede d Orally every 6 hrs Active Clopidogrel Bisulfate 75 MG Tablet 1 tablet Orally Once a day Active Atorvastatin Calcium 40 MG Tablet 1 tablet Orally Once a day Active Metoprolol Succinate ER 50 MG Tablet Extended Release 24 Hour 1 tablet Orally Once a day Active Lisinopril 10 MG Tablet 1 tablet Orally Once a day Active Social History Tobacco Use: Social History Observation Description Date Details (start date - stop date) Current Smoker NA - NA Social History Drugs/Alcohol: Social Info Question Answer Notes Alcohol Screen Did you have a drink containing alcohol in the past year? Yes How often did you have a drink containing alcohol in the past year? Monthly or less (1 point) How many drinks did you have on a typical day when you were drinking in the past year? 1 or 2 drinks (0 point) How often did you have 6 or more drinks on one occasion in the past year? Never (0 point) Points 1 Interpretation Negative Tobacco Use: Social Info Question Answer Notes Tobacco Use/Smoking Patient is a current smoker How often do you smoke cigarettes? every day How many cigarettes a day do you smoke? 6-10 How soon after you wake up do you smoke your first cigarette? within 5 minutes Are you interested in quitting? 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 alcohol Problems Problem Type SNOMED Code ICD Code Onset Dates Problem Status W/U Status Risk Notes Problem Screening for malignant neoplasm of colon (180939149) Encounter for screening for malignant neoplasm of colon (Z12.11) Active confirmed Problem Computed tomography of abdomen abnormal (44518364635431 107) Abnormal CT scan, stomach (R93.3) Active confirmed Plan Of Treatment Future Test Test Name Order Date UPPER GI ENDOSCOPY 08/05/2017 Insurance Providers Payer Name Payer Address Payer Phone Subscriber Number Group Number Insured Name Patient Relationship to Insured Coverage Start Date Coverage End Date MEDICAID OF [employer] [address] [place] [id number] JEANNIE YOST Self - patient is the insured Medical (General) History Medical History History ICD Code [place]-01/2016--3V-CABG; had a stent put in a pprox 2010 Hypertension Denies DM,CVA,Lung disease Back pain Hyperlipidemia PVD--stent in right leg Reports an andominal aortic aneurysm Surgical History Surgery Date(Month/Year) Back surgery 2016 Cyst removal-ovary 1985 2V-CABG 2015 Broken left humerus--has a franci in place 2010
--- OUTSIDE RECORDS SUMMARY | 2025-08-10 19:47 | XMS_ITS | Clinical Summary ---
Author Organization [facility] Address [address] [facility] [address] [place], [place] [address] Phone Care Team Providers Care Biodiesel Production Technician Name Role Phone Nhan Sigala MD Primary Care Provider +1 [phone] Allergies Active Allergy Reactions Criticality Noted Date [...] this topic Medical Devices Implanted Type Area Sports Athletic Trainer Device Identifier Shelf Expiration Date Model / Serial / Lot Icd Single-Chamber Ellipse [id number] 12mm Vr 36 Non-Coated Df4 Connector-01/28/2018 Implanted: 8 (Quantity not on file) ICD [employer] [id number] / [id number] / Lead Durata 7fr 52cm Defibrillation Single Coil Optim Insulation Ext/Cristo [place] Df4 Connector-01/28/2018 Implanted: 8 (Quantity not on file) Lead [employer] 7122Q/52 / [id number] / [place] B Care Teams Biodiesel Production Technician Relationship Specialty Start Date End Date Nhan Sigala MD [address] [address] PCP - General 07/07/17 Additional Source Comments The information contained in this document represents components of the legal health record. It is not the complete legal health record.[facility]
== END 2025-08-10 14:50 | disposition home or self-care (01) ==
LOC: HO.HNS 14:25
PROVIDERS: PCP Physician Assistant; Visit Provider Physician Assistant
DX: M96.1 Postlaminectomy syndrome, not elsewhere classified (principal)
CPT/HCPCS: 99213

== ENCOUNTER 2025-09-07 12:53 | Outpatient (AMB) | payer MEDICARE, MEDICAID, SELFPAY ==
--- NOTE | 2025-09-07 12:55 | MHC.OFFVIS ---
Vital Signs 09/07/25 13:02 Height 4 ft 11 in Weight 106 lb 8 oz BMI 21.5 BP 141/65 H Blood Pressure Location Rt brachial Position Sitting Pulse 71 Pulse Source Pulse Oximeter Pulse Oximetry (%) 98 Oxygen Delivery Method Room Air Intake Visit Reasons: Pill Count Intake Note: Luci comes in today for a pill count to oxycodone, patient should have 28 tablets and presents with 31 tablets which she last took today 09/07/25 at 12pm. Pain today 04/30 Enterprise Resource Analyst Required: No Accompanied by: Self / Same As Patient Allergies sacubitril (From Entresto) Adverse Reaction (Severe, Verified 09/07/25 13:05) hyperkalemia valsartan (From Entresto) Adverse Reaction (Severe, Verified 09/07/25 13:05) hyperkalemia HPI Comments Details: Patient presents today for a pill count. Patient is supposed to have #28 pills, in her possession has #31 pills. This demonstrates a responsible attitude in regards to the medication regimen. She continuous to endorse significant and persistent back, neck, shoulders, left leg and hip pain. There have been no changes in her medication regimen, and she denies experiencing constipation. She was recently seen by [facility] for follow up for left sided radicular low back pain and will continue to avoid surgical intervention at this time. Given osteoporosis, she is not candidate for steroid injections. She receives hand injections every four months from Dr. Wallace, but the most recent one was ineffective. She has never seen a campus supervisor or had labs for rheumatoid arthritis. Patient is interested in Rheumatology evaluation for multiple joint pain and chronic pain syndrome. The patient's medical history is also significant for an aortic aneurysm, cardiomyopathy, and renal disease. A referral to Dr. Mann was placed by her Gearman for the aneurysm, but she has not been contacted for an appointment and now reports feeling a lump in her stomach area with coughing. She manages her pain with oxycodone and lifestyle modifications, though she notes being sedentary at times. She has tried Icy Hot patches without relief. Denies any fever, dizziness, chest pain, shortness of breaths, constipation, nausea, sedation, dizziness, or urinary retention. Past Procedures: 01/05/25: Left L5 TFESI--minimal relief for >1 week [facility] Medical History History of placement of internal cardiac defibrillator Renal artery stenosis Heart failure with reduced ejection fraction Acute on chronic systolic (congestive) heart failure Lumbar spondylosis Ischemic cardiomyopathy COVID-19 vaccine series completed History of femoral angiogram Hiatal hernia CAD (coronary artery disease) AAA (abdominal aortic aneurysm) Hx of myocardial infarction Hypertension Peripheral vascular disease CKD (chronic kidney disease) stage 3, GFR 30-59 ml/min Cervical spondylosis Failed back syndrome, lumbar Surgical History Stented coronary artery Status post cardiac catheterization History of biliary duct stent placement 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 Sister Gynecologic cancer Social History Household Members: None Household Members Other:: Son Housing: Apartment Are you a primary urgent care technician to a significant other at home: No Alcohol intake: never Comment: Pt independent in room with steady gait, refuses fall risk precautions. Patient Tobacco Use Status: Former Tobacco user Tobacco use type: Cigarette Cigarette Packs Per Day: 1 Cigarettes Per Day: 20.0 Years Smoked: 40 e-Cigarette/Vaping Use: Former Use Second Hand Smoke Exposure: Yes Substance Use Type: Marijuana Advance Directives Date on File: 07/06/21 service: No Current occupational status: disabled Current occupation: rt handed Cognitive needs: No Hearing needs: No Vision needs: Yes (Glasses) Review of Systems Const Details: - Constitutional: Denies fever or feeling hot. - Abdomen: Reports feeling a lump in her stomach area when she coughs. - Musculoskeletal: Reports widespread pain in her neck, shoulders, sides, hips, legs, back, and wrists. - General: Denies recent cough, COVID, flu, or strep throat. - Genitourinary: Denies symptoms of a urinary tract infection and has no history of kidney stones. All systems reviewed & are unremarkable except as noted in HPI and below Physical Exam Vital Signs: Last Vital Signs Pulse 71 09/07/25 13:02 BP 141/65 H 09/07/25 13:02 Pulse Ox 98 09/07/25 13:02 Oxygen Delivery Method Room Air 09/07/25 13:02 BMI result Body Mass Index 21.5 On exam today: Appears afebrile. Alert and oriented. Mood and affect appropriate. Follows and participates in conversation appropriately. Respiratory effort is unlabored. No cough. Able to transition from sit to stand unassisted. Ambulates with slow, mildly antalgic gait. No limping. Eyes General: appearance normal, both eyes and all related structures Resp Effort & Inspection: normal respiratory effort, able to speak in complete sentences, no cough, respiratory distress and No symmetric chest movement Extrem General: Yes capillary refill normal, Yes no clubbing, cyanosis or edema and Yes no calf tenderness Psych Appearance: grossly normal and well kempt Mental Status: mental status grossly normal Speech and movement: Normal speech and movement present and Clear speech present Affect: normal affect Attitude: cooperative Thought process: Normal thought process present Thought content: Normal thought content present, suicidality (none), no hallucinations and Depressive thoughts present Insight: Good insight present (Psych) Judgement: Good judgement present (Psych) Results Reviewed Results Reviewed: XR LUMBOSACRAL SPINE WITH OBLIQUES 04/27/23 CLINICAL INFORMATION: Postlaminectomy syndrome. COMPARISON: Radiographs dated 05/10/2019. TECHNIQUE: AP, both oblique, and lateral (neutral, flexion and extension) views of the lumbar spine. Lateral view of the lumbosacral junction. FINDINGS: There is bony demineralization. At L3-L4, there is a 4 mm anterolisthesis. There is well-maintained alignment status-post L4-L5 posterior fusion and discectomy, with intact posterior fixator rods, pedicular screws and disc spacer. No hardware failure or loosening is seen. There is no acute fracture or spondylolisthesis. No instability is seen with flexion or extension. No spondylolysis defect is seen on the oblique views. There are aortoiliac atherosclerotic calcifications. Iliac stent material is noted. IMPRESSION: 1. There is well-maintained alignment status-post L4-L5 posterior fusion and discectomies. No hardware failure or loosening is seen. 2. There is mild degenerative disc disease at L3-L4. 3. No instability is seen with flexion or extension. XR SACROILIAC JOINTS 04/27/23 CLINICAL INFORMATION: Sacrococcygeal disorders. COMPARISON: Hip radiographs dated 06/19/2021 and 11/06/2017. FINDINGS: Bones and soft tissues are normal. No fracture. Alignment is anatomic. Sacroiliac joint spaces are well-maintained without erosions or surrounding sclerosis. The acetabular joint spaces are well-maintained. The pubic symphysis is intact. Lumbar orthopedic hardware and right iliac stent material are noted. IMPRESSION: Normal sacroiliac joints. BONE DENSITOMETRY 03/22/24 Osteopenia based on the lowest T-score value of -2.3 in the total femur applying World Health Organization criteria. Assessment & Plan Assessment & Plan (1) Polyarthralgia: Code(s): M25.50 - Pain in unspecified joint Category: Medical (2) Lumbar radicular syndrome: Code(s): M54.16 - Radiculopathy, lumbar region Category: Medical (3) Failed back syndrome, lumbar: Code(s): M96.1 - Postlaminectomy syndrome, not elsewhere classified Category: Medical (4) Lumbosacral disc herniation: Code(s): M51.27 - Other intervertebral disc displacement, lumbosacral region Category: Medical (5) Lumbar spondylosis: Code(s): M47.816 - Spondylosis without myelopathy or radiculopathy, lumbar region Category: Medical (6) Sacroiliac joint pain: Code(s): M53.3 - Sacrococcygeal disorders, not elsewhere classified Category: Medical (7) Opioid contract exists: Code(s): Z79.891 - [facility] (current) use of opiate analgesic Category: Medical Plan Patient has shown accountability for her medication regimen and the pill counts were accurate. There is no evidence of misuse, abuse or diversion at this time. VisiQuate reviewed. Script sent for oxycodone 5 mg up QID prn with advanced date of 09/12/25. Patient has Narcan at home. She will continue to manage her chronic back pain with her current medication and lifestyle modifications, deferring any further injections or surgical intervention at this time. Given chronic and widespread polyarthralgia, we will investigate for a possible rheumatologic cause, baseline rheumatology blood work, will be ordered for the patient to complete today and Rheumatology consult for further evaluation and management. All questions were answered and the patient is in agreement with the plan. Follow up in 4-5 weeks for a pill count or sooner if needed. Orders: Orders Rheumatoid Factor Today M25.50 - Pain in unspecified joint Cyclic Citrullinated Peptide Today M25.50 - Pain in unspecified joint Erythrocyte Sedimentation Rate Today M25.50 - Pain in unspecified joint Complete Blood Count Auto Diff Today M25.50 - Pain in unspecified joint SOTO Reflex Titer and Pattern Today M25.50 - Pain in unspecified joint DNA Double Stranded-Crithidia Today M25.50 - Pain in unspecified joint Comprehensive Met. Panel Today M25.50 - Pain in unspecified joint Referrals Rheumatology Referral M25.50 - Pain in unspecified joint Medications: Refilled oxycodone 5 mg PO Q6H PRN 120 tabs 0RF pain (scale score 7-10) 30 days MDD 4 M47.816 - Spondylosis without myelopathy or radiculopathy, lumbar region, M96.1 - Postlaminectomy syndrome, not elsewhere classified, Z79.891 - [facility] (current) use of opiate analgesic Coding Level of Care Code Est Pt Level 4 (37277) Diagnoses Polyarthralgia M25.50 Lumbar radicular syndrome M54.16 Failed back syndrome, lumbar M96.1 Lumbosacral disc herniation M51.27 Lumbar spondylosis M47.816 Sacroiliac joint pain M53.3 Opioid contract exists Z79.891
[2025-09-07 13:02] VITALS: BP 141/65; PULSE 71; O2SAT 98; BMI 21.5
--- OUTSIDE RECORDS SUMMARY | 2025-09-07 16:47 | XMS_ITS | Clinical Summary ---
Author Organization [facility] Address [address] [facility] [address] [place], [place] [address] Phone Care Team Providers Care Group Teacher Name Role Phone Nhan Sigala MD Primary Care Provider [phone] [phone] Allergies Active Allergy Reactions Criticality Noted Date [...] Health Maintenance Due Date Last Done Comments BLOOD PRESSURE 1954 CREATININE LEVEL 1954 LIPID PANEL 1954 DEPRESSION SCREENING 1966 SMOKING Hx and SMOKELESS TOBACCO SCREENING 1967 HEPATITIS C SCREENING 1972 MAMMOGRAM 1994 COLOGUARD 1999 COLONOSCOPY 1999 COLORECTAL CANCER SCREENING 1999 FIT TEST 1999 FOBT 1999 SIGMOIDOSCOPY 1999 VIRTUAL COLONOSCOPY 1999 OSTEOPOROSIS SCREENING INITIAL (ONE-TIME) 2019 INFLUENZA VACCINE (#1) 2025 0, 06/22/2018, 07/03/2017, [...] this topic Medical Devices Implanted Type Area Sweat Band Separator Device Identifier Shelf Expiration Date Model / Serial / Lot Icd Single-Chamber Ellipse [id number] 12mm Vr 36 Non-Coated Df4 Connector-01/28/2018 Implanted: 8 (Quantity not on file) ICD [employer] [id number] / [id number] / Lead Durata 7fr 52cm Defibrillation Single Coil Optim Insulation Ext/Cristo [place] Df4 Connector-01/28/2018 Implanted: 8 (Quantity not on file) Lead [employer] 7122Q/52 / [id number] / Insurance [place] B Care Teams Group Teacher Relationship Specialty Start Date End Date Nhan Sigala MD [facility] [address] PCP - General 07/07/17 Additional Source Comments The information contained in this document represents components of the legal health record. It is not the complete legal health record.[facility]
--- OUTSIDE RECORDS SUMMARY | 2025-09-07 16:47 | XMS_ITS | Clinical Summary ---
Author Organization [email or web address] Address [address] [facility] [address]t [place] [address] Care Team Providers Care Silicator Name Role Phone Unavailable Primary Care Provider [...] [place] [id number] [facility]
--- OUTSIDE RECORDS SUMMARY | 2025-09-07 16:47 | XMS_ITS | Encounter Summary ---
Author Organization [facility] Address [address] [facility] [address] [place] [address] Phone Care Team Providers Care Semi Conductor Assembler Name Role Phone Nhan Sigala MD Primary Care Provider +1 [phone] Encounter Details Date Type Department Care Team (Latest Contact Info) Description 10/12/2019 Ancillary Orders [facility] Cardiovascular And Interventional Radiology [address] [place] [address] Yasir Hugn MD [address] [place] [address] [email or web address] [email or web address] (sick sinus syndrome) Social [...] dysfunction documented in this encounter Care Teams Semi Conductor Assembler Relationship Specialty Start Date End Date Nhan Sigala MD [address] [address] PCP - General 07/07/17 documented as of this encounter Additional Source Comments The information contained in this document represents components of the legal health record. It is not the complete legal health record.[facility]
--- OUTSIDE RECORDS SUMMARY | 2025-09-07 16:47 | XMS_ITS | Patient Health Record ---
Author Organization [facility] Address [address] [place] [address] Care Team Providers Care Chief Chemist Name Role Phone Nhan Sigala Primary Care Provider Unruly Negron Unavailable [phone] Reason For Referral No Information Medications Medication [...] Problem Screening for malignant neoplasm of colon (518850508) Encounter for screening for malignant neoplasm of colon (Z12.11) Active confirmed Problem Computed tomography of abdomen abnormal ([id number] 107) Abnormal CT scan, stomach (R93.3) Active confirmed Plan Of Treatment Future Test Test Name Order Date UPPER GI ENDOSCOPY 08/05/2017 Insurance Providers Payer Name Payer Address Payer Phone Subscriber Number Group Number Insured Name Patient Relationship to Insured Coverage Start Date Coverage End Date MEDICAID OF [employer] [address] [place] [id number] JEANNIE YOST Self - patient is the insured Medical (General) History Medical History History ICD Code OH-01/2016--3V-CABG; had a stent put in a pprox 2010 Hypertension Denies DM,CVA,Lung disease Back pain Hyperlipidemia PVD--stent in right leg Reports an andominal aortic aneurysm Surgical History Surgery Date(Month/Year) Back surgery 2016 Cyst removal-ovary 1985 2V-CABG 2015 Broken left humerus--has a franci in place 2010
--- OUTSIDE RECORDS SUMMARY | 2025-09-07 16:47 | XMS_ITS | Encounter Summary ---
Author Organization [facility] Address [address] [facility] [address] [place] [address] Phone Care Team Providers Care Nail Specialist Name Role Phone Nhan Sigala MD Primary Care Provider [phone] [phone] Reason for Referral * MRI/CAT Scan - Closed Specialty Diagnoses / Procedures Referred By Contac t Referred To Contact Radiology Diagnoses Cervical radiculopathy Spondylosis of cervical region without myelopathy or radiculopathy Procedures MRI Cervical Spine Lorraine Lr PA Phone: tel: fax: [email or web address]:[email or web address] Referral ID Status Reason Start Date Expiration Date Visits Re quested Visits Authorized [id number] Closed 10/10/2019 12/09/2019 1 1 Encounter Details Date Type Department Care Team (Latest Contact Info) Description 10/10/2019 Transcribe Orders Virtual Department [address] [place] [address] Lorraine Lr PA [address] [place] [phone] [email or web address] Spondylosis of cervical region without myelopathy or [...] flow void compatible with occlusion. POS - [id number] Narrative 10/18/2019 5:02 PM EST MRI CERVICAL [...] artery flow void compatible withocclusion. POS - [id number] Lorraine [place] [facility] MR XSPECIALTY Final Res ult documented in this encounter Visit Diagnoses Diagnosis Spondylosis of cervical region without myelopathy or radiculopathy- Primary Cervical radiculopathy Brachial neuritis or radiculitis nos Cervical radiculopathy Brachial neuritis or radiculitis nos Spondylosis of cervical region without myelopathy or radiculopathy documented in this encounter Care Teams Nail Specialist Relationship Specialty Start Date End Date Nhan Sigala MD [address] [address] PCP - General 07/07/17 documented as of this encounter Additional Source Comments The information contained in this document represents components of the legal health record. It is not the complete legal health record.[facility]
--- OUTSIDE RECORDS SUMMARY | 2025-09-07 16:47 | XMS_ITS | Encounter Summary ---
Author Organization [facility] Address [address] [facility] [address] [facility] [address] [place] [address] Phone Care Team Providers Care Biometrics Technician Name Role Phone Nhan Sigala MD Primary Care Provider +1 [phone] Encounter Details Date Type Department Care Team (Late st Contact Info) Description 10/10/2019 Procedure Pass [facility], [address] [address] Social History Tobacco Use Types Packs/Day Years [...] on filedocumented in this encounter Care Teams Biometrics Technician Relationship Specialty Start Date End Date Nhan Sigala MD [address] [place] [address] PCP - General 07/07/17 documented as of this encounter Additional Source Comments The information contained in this document represents components of the legal health record. It is not the complete legal health record.[facility]
== END 2025-09-07 13:20 | disposition home or self-care (01) ==
LOC: HO.PMC 12:54
PROVIDERS: PCP Physician Assistant; Visit Provider Nurse Practitioner Family
DX: M25.50 Pain in unspecified joint (principal); M54.16 Radiculopathy, lumbar region; M96.1 Postlaminectomy syndrome, not elsewhere classified; M51.27 Other intervertebral disc displacement, lumbosacral region; M47.816 Spondylosis without myelopathy or radiculopathy, lumbar region; M53.3 Sacrococcygeal disorders, not elsewhere classified; Z79.891 Long term (current) use of opiate analgesic
CPT/HCPCS: 99214

== ENCOUNTER 2025-09-07 12:53 | Outpatient (REF) | payer MEDICARE, MEDICAID, SELFPAY ==
[2025-09-07 13:39] LABS: MANUAL DIFF FLAG NO
[2025-09-07 13:54] LABS: Hematocrit 33.6 % (37.0-47.0); Hemoglobin 11.1 g/dl (12.0-16.0); Imm Gran Abs Auto 0.02 X10*3/uL (0.00-0.03); Imm Gran Pct Auto 0.2 % (0.0-0.4); Lymphocytes Absolute Auto 2.0 X10*3/uL (1.2-4.9); Mean Corpuscular HGB Conc 33.0 g/dl (31.0-35.0); Mean Corpuscular Hemoglobin 29.1 pg (27.0-33.0); Mean Corpuscular Volume 88.2 fL (80.0-98.0); NRBC Abs Auto 0.000 X10*3/uL (0.0-0.012); NRBC Pct Auto 0.0 /100WBC (0.0-0.2); Platelet Count 207 X10*3/uL (160-400); Red Blood Count 3.81 X10*6/uL (4.20-5.50); White Blood Count 8.5 X10*3/uL (4.8-10.8)
[2025-09-07 14:26] LABS: Alanine Aminotransferase 10 U/L (0-31); Albumin Level 4.2 g/dL (3.5-5.0); Alkaline Phosphatase 94 U/L (39-117); Anion Gap 13 (12-20); Aspartate Amino Transferase 23 U/L (5-31); Blood Urea Nitrogen 13 mg/dL (9-16); Calcium 9.6 mg/dL (8.4-10.2); Carbon Dioxide 25 mmol/L (22-29); Chloride 104 mmol/L (96-108); Estimated Glomerular Filt Rate 45; Potassium 4.7 mmol/L (3.3-5.1); Sodium 137 mmol/L (135-145); Total Protein 7.3 g/dL (6.5-8.0)
== END 2025-09-07 12:54 | disposition home or self-care (01) ==
LOC: HO.LAB 12:53
PROVIDERS: PCP Physician Assistant; Visit Provider Nurse Practitioner Family
DX: Z01.84 Encounter for antibody response examination (principal); M47.26 Other spondylosis with radiculopathy, lumbar region; M96.1 Postlaminectomy syndrome, not elsewhere classified; M51.27 Other intervertebral disc displacement, lumbosacral region; M53.3 Sacrococcygeal disorders, not elsewhere classified; G89.29 Other chronic pain; Z79.891 Long term (current) use of opiate analgesic
CPT/HCPCS: 36415; 80053; 85025; 85652; 86038; 86200; 86255; 86431; 99212

== ENCOUNTER 2025-09-12 11:31 | Outpatient (REF) | payer MEDICARE, MEDICAID, SELFPAY ==
[2025-09-12 12:09] LABS: Appearance Urine Clear; Glucose Urine UA Negative (Negative); PH 5.5 (5.0-9.0); Specific Gravity - Urine 1.020 (1.005-1.025); UMIC TRIGGER UACC YES
--- OUTSIDE RECORDS SUMMARY | 2025-09-12 12:54 | XMS_ITS | Encounter Summary ---
Author Organization [facility] Address [address] [facility] [address] [place] [address] Phone Care Team Providers Care Fiber Optics Technician Name Role Phone Nhan Sigala MD Primary Care Provider [phone] [phone] Reason for Referral * MRI/CAT Scan - Closed Specialty Diagnoses / Procedures Referred By Contac t Referred To Contact Radiology Diagnoses Cervical radiculopathy Spondylosis of cervical region without myelopathy or radiculopathy Procedures MRI Cervical Spine Lorraine Lr PA Phone: tel: fax: [email or web address] Referral ID Status Reason Start Date Expiration Date Visits Re quested Visits Authorized [id number] Closed 10/10/2019 12/09/2019 1 1 Encounter Details Date Type Department Care Team (Latest Contact Info) Description 10/10/2019 Transcribe Orders Virtual Department 30 [place] [address] Lorraine Lr PA [address] [place] [phone] [email or web address] Spondylosis of cervical region without myelopathy or [...] flow void compatible with occlusion. POS - [id number] Narrative 10/18/2019 5:02 PM EST MRI CERVICAL [...] artery flow void compatible withocclusion. POS - [id number] Lorraine [place] [facility] MR XSPECIALTY Final Res ult documented in this encounter Visit Diagnoses Diagnosis Spondylosis of cervical region without myelopathy or radiculopathy- Primary Cervical radiculopathy Brachial neuritis or radiculitis nos Cervical radiculopathy Brachial neuritis or radiculitis nos Spondylosis of cervical region without myelopathy or radiculopathy documented in this encounter Care Teams Fiber Optics Technician Relationship Specialty Start Date End Date Nhan Sigala MD [address] [address] PCP - General 07/07/17 documented as of this encounter Additional Source Comments The information contained in this document represents components of the legal health record. It is not the complete legal health record.[facility]
--- OUTSIDE RECORDS SUMMARY | 2025-09-12 12:54 | XMS_ITS | Encounter Summary ---
Author Organization [facility] Address [address] [facility] [address] [place] [address] Phone Care Team Providers Care Software Engineer Web Services Name Role Phone Nhan Sigala MD Primary Care Provider [phone] [phone] Encounter Details Date Type Department Care Team (Latest Contact Info) Description 10/12/2019 Ancillary Orders [facility] Cardiovascular And Interventional Radiology 30 [place] [address] Yasir Hung MD [address] [place] [address] [email or web address] [email or web address] (sick sinus syndrome) Social [...] dysfunction documented in this encounter Care Teams Software Engineer Web Services Relationship Specialty Start Date End Date Nhan Sigala MD [address] [address] PCP - General 07/07/17 documented as of this encounter Additional Source Comments The information contained in this document represents components of the legal health record. It is not the complete legal health record.[facility]
--- OUTSIDE RECORDS SUMMARY | 2025-09-12 12:54 | XMS_ITS | Encounter Summary ---
Author Organization [facility] Address [address] [place] [address] Phone Care Team Providers Care Vault Mechanic Name Role Phone Nhan Sigala MD Primary Care Provider [phone] [phone] Encounter Details Date Type Department Care Team (Late st Contact Info) Description 10/10/2019 Procedure Pass [facility], [address] [address] Social History Tobacco Use Types Packs/Day Years [...] on filedocumented in this encounter Care Teams Vault Mechanic Relationship Specialty Start Date End Date Nhan Sigala MD [address] [place] [address] PCP - General 07/07/17 documented as of this encounter Additional Source Comments The information contained in this document represents components of the legal health record. It is not the complete legal health record.[facility]
--- OUTSIDE RECORDS SUMMARY | 2025-09-12 12:55 | XMS_ITS | Clinical Summary ---
Author Organization [facility] Address [address] [place], [place] [address] Phone Care Team Providers Care Data Acquisition Technician Name Role Phone Nhan Sigala MD Primary Care Provider [phone] Allergies Active Allergy Reactions Criticality Noted Date [...] this topic Medical Devices Implanted Type Area Cut Out Press Operator Device Identifier Shelf Expiration Date Model / Serial / Lot Icd Single-Chamber Ellipse [id number] 12mm Vr 36 Non-Coated Df4 Connector-01/28/2018 Implanted: 8 (Quantity not on file) ICD [employer] BF9049-82F / [id number] / Lead Durata 7fr 52cm Defibrillation Single Coil Optim Insulation Ext/Cristo [employer]deen Df4 Connector-01/28/2018 Implanted: 8 (Quantity not on file) Lead [employer] 7122Q/52 / [id number] / [place] & B Care Teams Data Acquisition Technician Relationship Specialty Start Date End Date Nhan Sigala MD [facility] [address] PCP - General 07/07/17 Additional Source Comments The information contained in this document represents components of the legal health record. It is not the complete legal health record.[facility]
--- OUTSIDE RECORDS SUMMARY | 2025-09-12 12:55 | XMS_ITS | Patient Health Record ---
Author Organization [facility] Address [address] [place] [address] Care Team Providers Care Java Project Manager Name Role Phone Nhan Sigala Primary Care Provider Unruly Negron Unavailable [phone] Reason For Referral No Information Medications Medication [...] Problem Screening for malignant neoplasm of colon (312955569) Encounter for screening for malignant neoplasm of colon (Z12.11) Active confirmed Problem Computed tomography of abdomen abnormal (14449517255975 107) Abnormal CT scan, stomach (R93.3) Active confirmed Plan Of Treatment Future Test Test Name Order Date UPPER GI ENDOSCOPY 08/05/2017 Insurance Providers Payer Name Payer Address Payer Phone Subscriber Number Group Number Insured Name Patient Relationship to Insured Coverage Start Date Coverage End Date MED[place] OF [employer] [address] [place] [id number] JEANNIE YOST Self - patient is the insured Medical (General) History Medical History History ICD Code GA-01/2016--3V-CABG; had a stent put in a pprox 2010 Hypertension Denies DM,CVA,Lung disease Back pain Hyperlipidemia PVD--stent in right leg Reports an andominal aortic aneurysm Surgical History Surgery Date(Month/Year) Back surgery 2016 Cyst removal-ovary 1985 2V-CABG 2015 Broken left humerus--has a franci in place 2010
--- OUTSIDE RECORDS SUMMARY | 2025-09-12 12:55 | XMS_ITS | Clinical Summary ---
Author Organization [facility] Address [address] [place] [address] Care Team Providers Care Production Administrator Name Role Phone Unavailable Primary Care Provider [...] [place] [id number] [facility]
== END 2025-09-12 11:32 | disposition home or self-care (01) ==
LOC: HO.LAB 11:31
PROVIDERS: PCP Physician Assistant; Visit Provider Physician Assistant
DX: R39.9 Unspecified symptoms and signs involving the genitourinary system (principal)
CPT/HCPCS: 81001